=== PATIENT | male | born 1955 | race Caucasian/White ===

== ENCOUNTER 2020-02-03 12:10 | Inpatient (IN) | payer OTHER ==
--- NOTE | 2020-02-03 13:03 | PDOC ---
History of Present Illness - General Chief Complaint: Wound Stated Complaint: WOUND CARE Time Seen by Provider: 02/03/20 12:29 - History of Present Illness Initial Comments: 02/03/20 13:48 64 M hx of dementia, Afib on (duoplate therapy), right 1st toe amputation poorly controlled, DM, schizoprenia, GERD, HF, HLD BIBA from nursing for worsening right toes wound. Patient is a poor historian. He denies chest pain, F/C/N/V, joints pain. Collateral information from nurse at who took care of him was taken. He is currently on 10/12 days of Vanco 1g and zosyn. Denies fever during the course of antibiotics. He was sent here by Dr. Pineda who knew of him. His mental status is confused at base line. PMHX: as in HPI PSHX: right toe amputation Meds: home meds Allergies: none Tob: Etoh: Rec drugs: Code: DNI/DNR PCP: Alfred Hogan ( fdc doctor). ROS: hard to assess/patient is a poor historian/dementia. GENERAL/CONSTITUTIONAL: No fever or chills. No weakness. HEAD, EYES, EARS, NOSE AND THROAT: No change in vision. No ear pain or discharge. No sore throat. CARDIOVASCULAR: No chest pain or shortness of breath RESPIRATORY: No cough, wheezing, or hemoptysis. GASTROINTESTINAL: No nausea, vomiting, diarrhea or constipation. GENITOURINARY: No dysuria, frequency, or change in urination. MUSCULOSKELETAL: No joint or muscle swelling or pain. No neck or back pain. SKIN: No rash NEUROLOGIC: No headache, vertigo, loss of consciousness, or change in strength/sensation. ENDOCRINE: No increased thirst. No abnormal weight change HEMATOLOGIC/LYMPHATIC: No anemia, easy bleeding, or history of blood clots. ALLERGIC/IMMUNOLOGIC: No hives or skin allergy. PE: not febrile, HR 101. GENERAL: AOx2, in no acute distress HEAD: No signs of trauma, normocephalic, atraumatic EYES: PERRLA, EOMI, sclera anicteric, conjunctiva clear ENT: Auricles normal inspection, hearing grossly normal, nares patent, oropharynx clear without exudates. Moist mucosa NECK: Normal ROM, supple, no lymphadenopathy, JVD, or masses LUNGS: No distress, speaks full sentences, clear to auscultation bilaterally HEART: Regular rate and rhythm, normal S1 and S2, no murmurs, rubs or gallops, peripheral pulses normal and equal bilaterally. ABDOMEN: Soft, nontender, normoactive bowel sounds. No guarding, no rebound. No masses EXTREMITIES : Normal range of motion, no edema. right first toe amputated, right second toe is toe, necrotic, NEUROLOGICAL: Cranial nerves II through XII grossly intact. Normal speech, normal gait, no focal sensorimotor deficits SKIN: Warm, Dry, normal turgor, no rashes or lesions noted 02/03/20 14:17 02/03/20 15:26 02/03/20 15:29 Past History - Medical History Allergies/Adverse Reactions: Allergies Allergy/AdvReac Type Severity Reaction Status Date / Time No Known Allergies Allergy Verified 02/03/20 12:20 Home Medications: Ambulatory Orders Amaryl - 4 mg PO DAILY 01/22/20 Aspirin [ASA -] 81 mg PO DAILY 01/22/20 Carvedilol 3.125 mg PO BID 01/22/20 Clopidogrel Bisulfate [Plavix] 75 mg PO DAILY 01/22/20 Digoxin [Lanoxin -] 1 tab PO DAILY 01/22/20 Famotidine 20 mg PO BID 01/22/20 Furosemide [Lasix] 40 mg PO DAILY 01/22/20 Gabapentin 300 mg PO TID 01/22/20 Quetiapine Fumarate [Seroquel -] 50 mg PO HS 01/22/20 Ramipril [Altace] 5 mg PO DAILY 01/22/20 Simvastatin [Zocor -] 40 mg PO HS 01/22/20 Sitagliptin Phosphate [Januvia -] 100 mg PO ONCE 01/22/20 Spironolactone 25 mg PO DAILY 01/22/20 Cardiac Disorders: Yes (a fib) COPD: No CHF: Yes Dementia: Yes Diabetes: Yes GI Disorders: Yes (gerd) HTN: Yes - Surgical History Orthopedic Surgery: Yes (r amp 1st toe) - Psycho-Social/Smoking History Smoking History: Former smoker Have you smoked in the past 12 months: No If you are a former smoker, when did you quit?: 15 yrs ago Information on smoking cessation initiated: No - Substance Abuse Hx (Audit-C & DAST Scrn) How often the patient has a drink containing alcohol: Never Score: In Men: 4 or > Positive; In Women: 3 or > Positive: 0 Screen Result (Pos requires Nsg. Audit-10AR): Negative In the last yr the pt used illegal drug/Rx for NonMed reason: No Score: Yes response is considered Positive: 0 Screen Result (Positive result requires Nsg. DAST-10): Negative *Physical Exam - Vital Signs Last Vital Signs Temp Pulse Resp BP Pulse Ox 98.8 F 101 H 18 150/85 100 02/03/20 12:21 02/03/20 12:21 02/03/20 12:21 02/03/20 12:21 02/03/20 12:21 ED Treatment Course - LABORATORY CBC & Chemistry Diagram: 02/03/20 13:05 02/03/20 13:05 Medical Decision Making - Medical Decision Making 02/03/20 14:45 EKG : vent rate 102 , sinus tachycardia. No previous EKG to compare to . Inferior infarct, age undetermined, possible ant infarct, age undetermined. qTc 427. 02/03/20 15:07 MBMD sent. Decision to admit is in. Talked to Nurse from who took care of Ramos. She reported that Mr. Beasley is Dr. Pineda 's patient. Wound got worse, never develop fever, chill while on Vanco+ zosynz. Patient finished day 04/04. Vanco 1 g + zosyn 3.75 . 02/03/20 15:08 64 M hx of dementia, Afib on (duoplate therapy), right 1st toe amputation poorly controlled, DM, schizoprenia, GERD, HF, HLD BIBA from nursing for worsening right toes wound. Patient is on day 04/04 of vanco+ zosyn, and got sent here from nursing by Dr. Pineda (vascular surgeon). ddx: wet gangrere, osteomeylitist, necrotizing fascitist Plan: Lab+ Xray+EKG Med: antibiotics: vanco 1g + zosyn 3.75 +fluid. Lab show: WBC 10. 6, Cr. 1.5, BUN 22, normal GFR. 02/03/20 15:24 02/03/20 15:31 02/03/20 16:09 Dr. Georgie Grullon and his team came to assess patient. He wants a vanco, digoxin level, lactate level, duplex of extremities, wound culture. They will call Dr. Pineda. 02/03/20 16:10 02/03/20 16:11 Discharge - Discharge Information Problems reviewed: Yes Clinical Impression/Diagnosis: Necrotizing cellulitis Condition: Good - Admission Yes - Follow up/Referral Referrals: Alfred Dos Santos [Primary Care Provider] - - Patient Discharge Instructions - Post Discharge Activity
[2020-02-03 13:16] LABS: BASO % 0.3 % (0-2.0); EOS % 1.6 % (0-4.5); HEMATOCRIT 29.6 % (35.4-49); HEMOGLOBIN 9.6 GM/dL (11.7-16.9); LYMPH % 8.3 % (8-40); MCH 26.4 pg (25.7-33.7); MCHC 32.3 g/dl (32.0-35.9); MEAN CELL VOLUME 81.8 fl (80-96); MEAN PLT VOLUME 7.6 fl (7.5-11.1); MONO % 7.1 % (3.8-10.2); NEUT % 82.7 % (42.8-82.8); PLATELET COUNT 267 K/MM3 (134-434); RBC 3.62 M/mm3 (4.00-5.60); RDW 14.3 % (11.9-15.9); WHITE BLOOD COUNT 10.6 K/mm3 (4.0-10.0)
[2020-02-03 14:00] LABS: ALBUMIN 2.3 g/dl (3.4-5.0); BLOOD UREA NITROGEN 21.2 mg/dL (7-18); CALCIUM 8.9 mg/dL (8.5-10.1); CREATININE 1.5 mg/dL (0.55-1.3); POTASSIUM 4.6 mmol/L (3.5-5.1); TOT PROT 7.2 g/dl (6.4-8.2)
[2020-02-03 14:20] LABS: BILIRUBIN,TOTAL 0.2 mg/dL (0.2-1)
[2020-02-03 14:22] LABS: ERYTHROCYTE SEDIMENTATION RATE 91 mm/hr (0-20)
--- NOTE | 2020-02-03 14:40 | PDOC ---
Documentation entered by Gertrude Ochoa SCRIBE, acting as scribe for Yuan Lopez MD. Yuan Lopez MD: This documentation has been prepared by the Gabriela mohr Sydney, SCRIBE, under my direction and personally reviewed by me in its entirety. I confirm that the documentation accurately reflects all work, treatment, procedures, and medical decision making performed by me. Attending Attestation - Resident Resident Name: Camron Harris - ED Attending Attestation I have performed the following: I have examined & evaluated the patient, The case was reviewed & discussed with the resident, I agree w/resident's findings & plan, Exceptions are as noted - HPI HPI: 02/03/20 13:54 Patient is a 64 year old male with a significant past medical history of HTN, GERD, CHF, Dementia, HLD, Afib who presents [place] the [place] [facility] [place] [facility] with infected right toe wound. HPI is limited secondary to the patient's baseline dementia. Allergies: NKDA PCP: Dr. Dos Santos - Physicial Exam PE: 02/03/20 14:40 See resident exam - Medical Decision Making 02/03/20 14:41 64 M with infected toe ulcer. - Labs, cultures - IV abx Discharge - Discharge Information Problems reviewed: Yes Clinical Impression/Diagnosis: Necrotizing cellulitis Condition: Good - Follow up/Referral - Patient Discharge Instructions - Post Discharge Activity
[2020-02-03] MEDS ORDERED: VANCOMYCIN 1,000 MG in DEXTROSE 5%-WATER - 250 ML IVPB ONE (14:59)
[2020-02-03] MEDS ORDERED: PIPERACILLIN/TAZOB 4.5 GM 4.5 GM in DEXTROSE 5%-WATER 100 ML IVPB ONE (14:59)
[2020-02-03] MEDS ORDERED: PIPERACILLIN/TAZOB 3.375 GM 3.375 GM in DEXTROSE 5%-WATER - 50 ML IVPB ONE (15:01)
[2020-02-03] MEDS ORDERED: PIPERACILLIN/TAZOB 3.375 GM 3.375 GM/50 ML BAG IVPB ONE (15:41)
--- NOTE | 2020-02-03 15:44 | PN ---
Teaching Attending Note Name of Resident: Glory Way ATTENDING PHYSICIAN STATEMENT I saw and evaluated the patient. I reviewed the resident's note and discussed the case with the resident. I agree with the resident's findings and plan as documented. SUBJECTIVE: Transferred from skilled nursing for evaluation of worsening cellulitis Elderly male in no apparent distress OBJECTIVE: Vital Signs Temperature 98.8 F 02/03/20 12:21 Pulse Rate 101 H 02/03/20 12:21 Respiratory Rate 18 02/03/20 12:21 Blood Pressure 150/85 02/03/20 12:21 O2 Sat by Pulse Oximetry (%) 100 02/03/20 12:21 General: Elderly man, comfortable, not in distress HEENT mucous membranes moist, no anemia, no jaundice, PERRLA, no nystagmus Neck: No JVD, supple, no bruit, thyroid palpably normal, normal carotid pulsations. Chest: Nontender, clear to auscultation bilaterally/bilateral wheezing/bilateral basal rales. CVS: S1-S2 regular/irregular no murmur/gallop/rub Abdomen: Nondistended, soft, bowel sounds present. Extremities: Right great toe amputation, second toe bluish discoloration with bleb formation, infected cyst wound amputation with exudative base, inflammation of surrounding skin no edema., No Calf tenderness, pulses feeble CABLE OPERATOR: Alert oriented grossly nonfocal CBC,CMP WBC 10.6 K/mm3 (4.0-10.0) H 02/03/20 13:05 RBC 3.62 M/mm3 (4.00-5.60) L 02/03/20 13:05 Hgb 9.6 GM/dL (11.7-16.9) L 02/03/20 13:05 Hct 29.6 % (35.4-49) L 02/03/20 13:05 MCV 81.8 fl (80-96) 02/03/20 13:05 MCH 26.4 pg (25.7-33.7) 02/03/20 13:05 MCHC 32.3 g/dl (32.0-35.9) 02/03/20 13:05 RDW 14.3 % (11.9-15.9) 02/03/20 13:05 Plt Count 267 K/MM3 (134-434) 02/03/20 13:05 MPV 7.6 fl (7.5-11.1) 02/03/20 13:05 Absolute Neuts (auto) 8.8 K/mm3 (1.5-8.0) H 02/03/20 13:05 Neutrophils % 82.7 % (42.8-82.8) 02/03/20 13:05 Lymphocytes % 8.3 % (8-40) 02/03/20 13:05 Monocytes % 7.1 % (3.8-10.2) 02/03/20 13:05 Eosinophils % 1.6 % (0-4.5) 02/03/20 13:05 Basophils % 0.3 % (0-2.0) 02/03/20 13:05 Nucleated RBC % 0 % (0-0) 02/03/20 13:05 ESR 91 mm/hr (0-20) H 02/03/20 13:05 Sodium 135 mmol/L (136-145) L 02/03/20 13:05 Potassium 4.6 mmol/L (3.5-5.1) 02/03/20 13:05 Chloride 102 mmol/L (98-107) 02/03/20 13:05 Carbon Dioxide 26 mmol/L (21-32) 02/03/20 13:05 Anion Gap 7 MMOL/L (8-16) L 02/03/20 13:05 BUN 21.2 mg/dL (7-18) H 02/03/20 13:05 Creatinine 1.5 mg/dL (0.55-1.3) H 02/03/20 13:05 Est GFR (CKD-EPI)AfAm 57.01 02/03/20 13:05 Est GFR (CKD-EPI)NonAf 49.19 02/03/20 13:05 Random Glucose 357 mg/dL (74-106) H 02/03/20 13:05 Calcium 8.9 mg/dL (8.5-10.1) 02/03/20 13:05 Total Bilirubin 0.2 mg/dL (0.2-1) 02/03/20 13:05 AST 16 U/L (15-37) 02/03/20 13:05 ALT 17 U/L (13-61) 02/03/20 13:05 Alkaline Phosphatase 66 U/L (45-117) 02/03/20 13:05 C-Reactive Protein 20.7 MG/DL (0.00-0.3) H 02/03/20 13:05 Total Protein 7.2 g/dl (6.4-8.2) 02/03/20 13:05 Albumin 2.3 g/dl (3.4-5.0) L 02/03/20 13:05 Right foot x-ray: Imported right great toe with surrounding tissue swelling ASSESSMENT AND PLAN: 64 years old man DNR/DNI, skilled nursing resident [[facility]] multiple medical comorbidities including uncontrolled type 2 diabetes mellitus, hypertension, hypercholesteremia, CKD stage III, paroxysmal atrial fibrillation, peripheral artery disease, congestive heart failure, Right foot osteomyelitis status post right great toe amputation on IV Zosyn and vancomycin day 10 at skilled nursing, via PICC line yesterday PICC line clogged the patient could received IV antibiotic, amputation is scheduled at place with infected wound, wet gangrene of second toe, patient is transferred to [place] ED for further evaluation and management, patient is evaluated with resident in the ED. Impression: Right foot cellulitis/osteomyelitis with sepsis Problem List - Problems (1) Foot osteomyelitis, right Assessment/Plan: Patient has peripheral artery disease with right foot cellulitis/osteomyelitis status post right great ambulation ID on IV antibiotic Zosyn and vancomycin, elevated ESR and CRP, most likely osteomyelitis, wound care, wound culture, wound care consult, ID consult, follow-up lactic acid, follow-up vancomycin level, continue Zosyn, CBC BMP in a.m. Lower extremity Doppler to rule out DVT. Problems reviewed: Yes Code(s): M86.9 - OSTEOMYELITIS, UNSPECIFIED (2) Uncontrolled type 2 diabetes mellitus Assessment/Plan: Hold p.o. medication, start on basal Levemir and correction dose insulin optimize as per Accu-Chek, follow-up hemoglobin A1c, diabetic diet. Problems reviewed: Yes Code(s): E11.65 - TYPE 2 DIABETES MELLITUS WITH HYPERGLYCEMIA (3) Paroxysmal atrial fibrillation Assessment/Plan: History of present atrial fibrillation, current EKG normal sinus rhythm, on digoxin follow dig levels resume home medications. Problems reviewed: Yes Code(s): I48.0 - PAROXYSMAL ATRIAL FIBRILLATION (4) CKD stage 3 due to type 2 diabetes mellitus Assessment/Plan: Due to diabetes nephropathy follow-up BMP Problems reviewed: Yes Code(s): E11.22 - TYPE 2 DIABETES MELLITUS W DIABETIC CHRONIC KIDNEY DISEASE; N18.3 - CHRONIC KIDNEY DISEASE, STAGE 3 (MODERATE) (5) Hypertension Assessment/Plan: Well-controlled continue Problems reviewed: Yes Code(s): I10 - ESSENTIAL (PRIMARY) HYPERTENSION (6) Congestive heart failure Assessment/Plan: Unexpected ejection fraction 40 follow-up BNP, echocardiogram, meantime continue Altace, Aldactone and digoxin Problems reviewed: Yes Code(s): I50.9 - HEART FAILURE, UNSPECIFIED Qualifiers: Heart failure type: unspecified (7) Anemia Assessment/Plan: Follow-up anemia work-up and H&H. Problems reviewed: Yes Code(s): D64.9 - ANEMIA, UNSPECIFIED
--- NOTE | 2020-02-03 16:17 | HP ---
CHIEF COMPLAINT: RLE Wound PCP: HISTORY OF PRESENT ILLNESS: 64 y/o M PMHx DM, Schizophrenia, HTN, HLD, GERD, Dementia, EtOH Use Disorder who had his R great toe amputated ~ 1 month ago, presents with R 2nd digit gangrene. Patient has dementia at baseline and participates minimally in HPI; Nursing staff at [facility] is unable to provide HPI. Case discussed with his brother Chad (HCP) patient has been a resident of [facility] in [place] for 12 years. Patient was quarantined at [facility] about 3-4 months ago after testing positive for COVID. During this time, he experienced great weakness and had some trauma (unknown mechanism of injury) to his Right great toe. Patients brother says this injury then progressed from a wound (brother presumes) to a black discoloration approx 2 months ago for which he was admitted to [facility]. His R great toe was amputated (Dr. Regino Luke) on 12/10 and patient was discharged to [facility]; Brother reports that hospital course was normal without any complications. Since discharge, patient has not followed with any surgeon. Denies any fevers, chills, chest pain, SOB, Nausea, vomiting, diarrhea, constipation, dysuria, Hematuria, headache. 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 Ambulation: Wheelchair/Bed bound Residence: [facility] FAMILY HX: Mother: HTN, HLD, Dementia, CAD Father: Unknown Allergies No Known Allergies Allergy (Verified 02/03/20 12:20) HOME MEDICATIONS: Home Medications Medication Instructions Recorded Amaryl - 4 mg PO DAILY 01/22/20 Aspirin [ASA -] 81 mg PO DAILY 01/22/20 Carvedilol 3.125 mg PO BID 01/22/20 Clopidogrel Bisulfate [Plavix] 75 mg PO DAILY 01/22/20 Digoxin [Lanoxin -] 1 tab PO DAILY 01/22/20 Famotidine 20 mg PO BID 01/22/20 Furosemide [Lasix] 40 mg PO DAILY 01/22/20 Gabapentin 300 mg PO TID 01/22/20 Quetiapine Fumarate [Seroquel -] 50 mg PO HS 01/22/20 Ramipril [Altace] 5 mg PO DAILY 01/22/20 Simvastatin [Zocor -] 40 mg PO HS 01/22/20 Sitagliptin Phosphate [Januvia -] 100 mg PO ONCE 01/22/20 Spironolactone 25 mg PO DAILY 01/22/20 REVIEW OF SYSTEMS As per HPI PHYSICAL EXAMINATION Vital Signs - 24 hr 02/03/20 02/03/20 12:21 15:10 Temperature 98.8 F Pulse Rate 101 H Pulse Rate [ 102 H Left Radial] Respiratory 18 20 Rate Blood Pressure 150/85 Blood Pressure 128/73 [Right Arm] O2 Sat by Pulse 100 97 Oximetry (%) GENERAL: NAD HEAD: NCAT ENT: Moist mucous membranes. NECK: No JVD LUNGS: Diminished breath sounds at the bases, Otherwise CTAB, No wheezes, no crackles HEART: RRR, S1 S2 ABDOMEN: Soft, nontender, not distended, + bowel sounds, no guarding, no rebound EXTREMITIES: Right Great Toe Amputation with open wound and exudative base, No active drainage however does have surrounding erythema, No weeping, No peripheral edema. NEUROLOGICAL: Alert, Follows some commands PSYCHIATRIC: Cooperative SKIN: Warm, dry Laboratory Results - last 24 hr 02/03/20 02/03/20 13:05 13:05 WBC 10.6 H RBC 3.62 L Hgb 9.6 L Hct 29.6 L MCV 81.8 MCH 26.4 MCHC 32.3 RDW 14.3 Plt Count 267 MPV 7.6 Absolute Neuts (auto) 8.8 H Neutrophils % 82.7 Lymphocytes % 8.3 Monocytes % 7.1 Eosinophils % 1.6 Basophils % 0.3 Nucleated RBC % 0 ESR 91 H Sodium 135 L Potassium 4.6 Chloride 102 Carbon Dioxide 26 Anion Gap 7 L BUN 21.2 H Creatinine 1.5 H Est GFR (CKD-EPI)AfAm 57.01 Est GFR (CKD-EPI)NonAf 49.19 Random Glucose 357 H Calcium 8.9 Total Bilirubin 0.2 AST 16 ALT 17 Alkaline Phosphatase 66 C-Reactive Protein 20.7 H Total Protein 7.2 Albumin 2.3 L ASSESSMENT/PLAN: 64 y/o M PMHx DM, Schizophrenia, HTN, HLD, GERD, Dementia, EtOH Use Disorder who had his R great toe amputated ~ 1 month ago, presents with R 2nd digit gangrene. #Sepsis -In the setting of Right 2nd digit Gangrene 2/2 Right foot osteomyelitis s/p R great toe amputation -Worsening Wound and now with 2nd digit gangrene while completing a course of IV Zosyn and vancomycin (Today is day 10) via PICC line -Elevated ESR, CRP -Foot XRay does not reveal a destructive process -Vascular surgery consulted; Case discussed with Dr. Pineda who suggests Santyl for wound and CTA with B/L LE runoff AFTER hydration given Cr, Ideally would like Cr to be 1.2 before contrast -Duplex to r/o DVT -CXR -Follow Wound Cx, blood cx, Vanco level -Trend Lactic -Continue IV ABx (Vanco, Zosyn) -IV Hydration -Consult ID (Dr. Neal) -Daily wound care -Bedrest, Fall precautions -Obtain records From [facility] and [facility] #ROYCE -Likely due to Dehydration in the setting of Diuresis -Check UA, Kidney Renal US -Continue IV Hydration -Monitor Urine output -Calculate FeNa -Avoid Nephrotoxic medication, Hold home dose Diuresis and ACEi #Normocytic/Microcytic Anemia -Etiology to be determined -Check FOBT, Iron studies: FE, TIBC, Ferritin, Transferrin, Folic Acid, Retic count, Vit B12 -Transfuse to keep > 8.0 (?CAD hx) -Will consider Heme Evaluation pending above workup #T2DM -ISS BGMs ACHS #HTN #HLD #?PAF #?CHF -Hold Lasix, Spironolactone, ACEi, PO Diabetic meds, -Resume all other home meds -Check Echo, Dig level #FEN -IV NS @ 75 -Replete Lytes PRN -NPO after midnight for possible intervention #PPx -DVT: SQH Dispo: Admit to med-surg, Meds have been reconciled Code Status: DNR/DNI, Requested MOLST form from Brother, Also requested brother bring HCP paperwork Visit type - Emergency Visit Emergency Visit: Yes ED Registration Date: 02/03/20 Care time: The patient presented to the Emergency Department on the above date and was hospitalized for further evaluation of their emergent condition. - New Patient This patient is new to me today: Yes Date on this admission: 02/04/20 - Critical Care Critical Care patient: No ATTENDING PHYSICIAN STATEMENT I saw and evaluated the patient. I reviewed the resident's note and discussed the case with the resident. I agree with the resident's findings and plan as documented. SUBJECTIVE: OBJECTIVE: ASSESSMENT AND PLAN:
[2020-02-03] MEDS ORDERED: VANCOMYCIN 1 GRAM (PRE-DOCKED) 1,000 MG/250 ML BAG IVPB ONE (16:29)
[2020-02-03] MEDS ORDERED: ACETAMINOPHEN 500 MG TABLET (FP) PO ONE (17:29)
[2020-02-03] MEDS ORDERED: ACETAMINOPHEN 500 MG TABLET (FP) ONE (17:30)
--- NOTE | 2020-02-03 17:50 | EKG ---
Test Reason : Blood Pressure : / mmHG Vent. Rate : 102 BPM Atrial Rate : 102 BPM P-R Int : 164 ms QRS Dur : 090 ms QT Int : 328 ms P-R-T Axes : 031 -07 035 degrees QTc Int : 427 ms SINUS TACHYCARDIA INFERIOR INFARCT , AGE UNDETERMINED ABNORMAL ECG NO PREVIOUS ECGS AVAILABLE Confirmed by MD Jordy, Dony ([id number]) on 02/03/2020 5:50:04 PM Referred By: Confirmed By:Dony Spence MD
[2020-02-03] MEDS ORDERED: DEXTROSE 5%-WATER - 50 ML IVPB ONE (21:26)
[2020-02-03] MEDS ORDERED: PIPERACILLIN/TAZOBACTAM 2.25 GM VIAL IVPB ONE (21:26)
[2020-02-03] MEDS ORDERED: QUEtiapine FUMARATE 25 MG TABLET ONE (21:26)
[2020-02-03 21:49] LABS: URINE APPEARANCE CLEAR; URINE BILIRUBIN NEGATIVE (NEGATIVE); URINE COLOR YELLOW; URINE GLUCOSE (UA) 2+ (NEGATIVE); URINE KETONE NEGATIVE (NEGATIVE); URINE LEUK ESTERASE NEGATIVE (NEGATIVE); URINE NITRITE NEGATIVE (NEGATIVE); URINE PROTEIN TRACE (NEGATIVE); URINE UROBILINOGEN 0.2 mg/dL (0.2-1.0)
[2020-02-03] MEDS: SODIUM CHLORIDE 1,000 ML IV SCH (21:56)
[2020-02-03] MEDS: FAMOTIDINE 20 MG TABLET PO SCH (21:57)
[2020-02-03] MEDS: CARVEDILOL 3.125 MG TABLET (FP) PO SCH (21:57)
[2020-02-03] MEDS: GABAPENTIN 300 MG CAPSULE PO SCH (21:58)
[2020-02-03] MEDS: ATORVASTATIN CA 20 MG TABLET (FP) PO SCH (21:58)
[2020-02-03] MEDS: HEPARIN NA (PORCINE) 5,000 UNITS/ML 1ML VIAL SQ SCH (21:58)
[2020-02-03] MEDS: QUEtiapine FUMARATE 50 MG TABLET PO SCH (21:59)
[2020-02-03] MEDS ORDERED: PATIENT'S OWN MEDICATION (NON-FORMULARY) (Simvastatin 40 MG) PO SCH (22:00)
[2020-02-03] MEDS: PIPERACILLIN/TAZOB 2.25 GM 2.25 GM in DEXTROSE 5%-WATER - 50 ML IVPB SCH (22:00)
[2020-02-03] MEDS: INSULIN SLIDING SCALE (NOVOLOG) 1 VIAL SQ SCH (22:10)
[2020-02-04] MEDS ORDERED: PIPERACILLIN/TAZOBACTAM 2.25 GM VIAL IVPB ONE ×4 (02:19→20:58)
[2020-02-04] MEDS ORDERED: DEXTROSE 5%-WATER - 50 ML IVPB ONE ×4 (02:20→20:58)
[2020-02-04] MEDS: PIPERACILLIN/TAZOB 2.25 GM 2.25 GM in DEXTROSE 5%-WATER - 50 ML IVPB SCH ×4 (03:09→21:22)
[2020-02-04] MEDS ORDERED: PT OWN MED DRAWER 7, Y5N ONE (06:33)
[2020-02-04] MEDS: HEPARIN NA (PORCINE) 5,000 UNITS/ML 1ML VIAL SQ SCH ×3 (06:35→21:23)
[2020-02-04] MEDS: GABAPENTIN 300 MG CAPSULE PO SCH ×3 (06:45→21:23)
[2020-02-04] MEDS: INSULIN SLIDING SCALE (NOVOLOG) 1 VIAL SQ SCH ×4 (06:46→21:26)
[2020-02-04] MEDS ORDERED: GLIMEPIRIDE 4 MG TABLET PO SCH (07:00)
--- NOTE | 2020-02-04 08:10 | PN ---
Progress Note, Physician Chief Complaint: No new complaint, spiked fever on IV antibiotic History of Present Illness: 64 years old man DNR/DNI, fdc resident [[facility]] multiple medical comorbidities including uncontrolled type 2 diabetes mellitus, hypertension, hypercholesteremia, CKD stage III, paroxysmal atrial fibrillation, peripheral artery disease, congestive heart failure, Right foot osteomyelitis status post right great toe amputation on IV Zosyn and vancomycin day 10 at fdc, via PICC line yesterday PICC line clogged the patient could received IV antibiotic, amputation is scheduled at place with infected wound, wet gangrene of second toe, patient is transferred to [facility] ED for further evaluation and management, patient remained afebrile ov ernight. - Current Medication List Current Medications: Active Medications Aspirin (Asa -) 81 mg PO DAILY [facility] Atorvastatin Calcium (Lipitor -) 20 mg PO HS [facility] Last Admin: 02/03/20 21:58 Dose: 20 mg Documented by: Carvedilol (Coreg -) 3.125 mg PO BID [facility] Last Admin: 02/03/20 21:57 Dose: 3.125 mg Documented by: Clopidogrel Bisulfate (Plavix -) 75 mg PO DAILY [facility] Collagenase (Santyl -) 1 applic TP DAILY [facility]; Protocol Digoxin (Lanoxin -) 0.125 mg PO DAILY [facility] Famotidine (Pepcid -) 20 mg PO BID [facility] Last Admin: 02/03/20 21:57 Dose: 20 mg Documented by: Gabapentin (Neurontin -) 300 mg PO TID [facility] Last Admin: 02/04/20 06:45 Dose: 300 mg Documented by: Glimepiride (Amaryl -) 4 mg PO ACBK [facility] Last Admin: 02/04/20 06:52 Dose: 4 mg Documented by: Heparin Sodium (Porcine) (Heparin -) 5,000 unit SQ TID [facility] Last Admin: 02/04/20 06:35 Dose: Not Given Documented by: Sodium Chloride (Normal Saline -) 1,000 mls @ 75 mls/hr IV ASDIR [facility] Last Admin: 02/03/20 21:56 Dose: 75 mls/hr Documented by: Piperacillin Sod/Tazobactam (Sod 2.25 gm/ Dextrose) 50 mls @ 100 mls/hr IVPB Q6H-IV [facility]; Protocol Piperacillin Sod/Tazobactam (Sod 2.25 gm/ Dextrose) 50 mls @ 100 mls/hr IVPB Q6H-IV [facility]; Protocol Stop: 02/04/20 09:29 Last Admin: 02/04/20 03:09 Dose: 100 mls/hr Documented by: Insulin Aspart (Novolog Vial Sliding Scale -) 1 vial SQ ACHS [facility]; Protocol Last Admin: 02/04/20 06:46 Dose: 6 units Documented by: Multivitamins/Minerals/Vitamin C (Tab-A-Vit -) 1 tab PO DAILY [facility] Quetiapine Fumarate (Seroquel -) 50 mg PO HS [facility] Last Admin: 02/03/20 21:59 Dose: 50 mg Documented by: Vancomycin HCl (Vancomycin (Pre-Docked)) 1,000 mg IVPB DAILY@1700 [facility]; Protocol Vancomycin HCl (Vancomycin (Pre-Docked)) 1,000 mg IVPB ONCE ONE; Protocol Stop: 02/04/20 17:01 - Objective Vital Signs: Vital Signs Temperature 99.0 F 02/04/20 06:00 Pulse Rate 98 H 02/04/20 06:00 Respiratory Rate 18 02/04/20 06:00 Blood Pressure 151/96 02/04/20 06:00 O2 Sat by Pulse Oximetry (%) 96 02/04/20 06:00 General: Elderly man, comfortable, not in distress HEENT mucous membranes moist, no anemia, no jaundice, PERRLA, no nystagmus Neck: No JVD, supple, no bruit, thyroid palpably normal, normal carotid pulsations. Chest: Nontender,/bilateral wheezing/bilateral basal rales. CVS: S1-S2 regular no murmur/gallop/rub Abdomen: Nondistended, soft, bowel sounds present. Extremities: Right great toe amputation, second toe bluish discoloration with bleb formation, infected cyst wound amputation with exudative base, inflammation of surrounding skin no edema., No Calf tenderness, pulses feeble IT APPLICATIONS ANALYST: Alert oriented grossly nonfocal Labs: CBC, BMP 02/03/20 13:05 02/03/20 13:05 Problem List - Problems (1) Foot osteomyelitis, right Assessment/Plan: Patient has peripheral artery disease with right foot cellulitis/osteomyelitis status post right great ambulation ID on IV antibiotic Zosyn and vancomycin, elevated ESR and CRP, most likely osteomyelitis, wound care, wound culture, wound care consult, ID consult, follow-up lactic acid, follow-up vancomycin level, continue Zosyn, CBC BMP in a.m. . Code(s): M86.9 - OSTEOMYELITIS, UNSPECIFIED (2) Uncontrolled type 2 diabetes mellitus Assessment/Plan: Hold p.o. medication except Januvia, start on basal Levemir 14 at bedtime, and correction dose insulin optimize as per Accu-Chek, follow-up hemoglobin A1c, diabetic diet. Code(s): E11.65 - TYPE 2 DIABETES MELLITUS WITH HYPERGLYCEMIA (3) Paroxysmal atrial fibrillation Assessment/Plan: History of present atrial fibrillation, current EKG normal sinus rhythm, on digoxin follow dig levels resume home medications. Code(s): I48.0 - PAROXYSMAL ATRIAL FIBRILLATION (4) CKD stage 3 due to type 2 diabetes mellitus Assessment/Plan: Due to diabetes nephropathy follow-up BMP Code(s): E11.22 - TYPE 2 DIABETES MELLITUS W DIABETIC CHRONIC KIDNEY DISEASE; N18.3 - CHRONIC KIDNEY DISEASE, STAGE 3 (MODERATE) (5) Hypertension Assessment/Plan: Well-controlled continue Code(s): I10 - ESSENTIAL (PRIMARY) HYPERTENSION (6) Congestive heart failure Assessment/Plan: Unexpected ejection fraction 40 follow-up BNP, echocardiogram, meantime continue Altace, Aldactone and digoxin Code(s): I50.9 - HEART FAILURE, UNSPECIFIED Qualifiers: Heart failure type: unspecified (7) Anemia Assessment/Plan: Follow-up anemia work-up and H&H. Code(s): D64.9 - ANEMIA, UNSPECIFIED (8) PIC line (peripherally inserted central catheter) removal Assessment/Plan: Center is nonfunctioning PICC line will be removed Problems reviewed: Yes Code(s): Z45.2 - ENCOUNTER FOR ADJUSTMENT AND MANAGEMENT OF VAD
[2020-02-04 08:45] LABS: BASO % 0.3 % (0-2.0); EOS % 2.3 % (0-4.5); HEMATOCRIT 27.5 % (35.4-49); HEMOGLOBIN 9.1 GM/dL (11.7-16.9); LYMPH % 10.5 % (8-40); MCHC 33.1 g/dl (32.0-35.9); MEAN CELL VOLUME 81.5 fl (80-96); MONO % 6.8 % (3.8-10.2); NEUT % 80.1 % (42.8-82.8); PLATELET COUNT 264 K/MM3 (134-434); RBC 3.38 M/mm3 (4.00-5.60); RDW 14.1 % (11.9-15.9); WHITE BLOOD COUNT 8.9 K/mm3 (4.0-10.0)
--- NOTE | 2020-02-04 09:18 | CONSULT ---
- Consultation REQUESTING PROVIDER: CONSULT REQUEST: We have been asked to surgically evaluate this patient for Right foot wound. PCP:Georgie Grullon MD HISTORY OF PRESENT ILLNESS: The patient is a 64 yo male who presented to the ER for evaluation of his right foot wound. His history is obtained from the chart since the pt has dementia and is able to give limited information. The patient was seen by Dr. Pineda in his office on January 21 as a new patient, he had a right toe amp on 12/[address] Luke and has since been in rehab. His history of his wound seems to have developed after having some weakness secondary to +COVID 30to 4 months ago. He is a previous smoker and is wheel chair/bed bound. He was noted to have a fever upon admission to the hospital to 101.9 with no elevation of his WBC. While i the nursing facility, he has been receiving IV abx via a left PICC line. PMHx: CVOID +(3-4 months ago), HTN, HLD, GERD, dementia, h/o ETOH abuse, a fib PSHx: Right great toe amp, Right vascular surgery? healed groin incision. Home Medications Medication Instructions Recorded Amaryl - 4 mg PO DAILY 01/22/20 Aspirin [ASA -] 81 mg PO DAILY 01/22/20 Carvedilol 3.125 mg PO BID 01/22/20 Clopidogrel Bisulfate [Plavix] 75 mg PO DAILY 01/22/20 Digoxin [Lanoxin -] 1 tab PO DAILY 01/22/20 Famotidine 20 mg PO BID 01/22/20 Furosemide [Lasix] 40 mg PO DAILY 01/22/20 Gabapentin 300 mg PO TID 01/22/20 Quetiapine Fumarate [Seroquel -] 50 mg PO HS 01/22/20 Ramipril [Altace] 5 mg PO DAILY 01/22/20 Simvastatin [Zocor -] 40 mg PO HS 01/22/20 Sitagliptin Phosphate [Januvia -] 100 mg PO DAILY 01/22/20 Spironolactone 25 mg PO DAILY 01/22/20 Acetaminophen [Tylenol -] 100 mg PO Q8H MDD 3000 02/03/20 Collagenase Clostridium Hist. 1 applic TP DAILY 02/03/20 [Santyl] Insulin Detemir [Levemir Flextouch] 60 unit SQ HS 02/03/20 Multivitamin 1 each PO DAILY 02/03/20 Oxycodone HCl 5 mg PO DAILY 02/03/20 Piperacillin/Tazob 3.375 gm [Zosyn 3.375 gm IVPB TID 02/03/20 3.375GM Ivpb (Pre-Docked)] Vancomycin 1 Gram (Pre-Docked) 1 gm IVPB BID 02/03/20 [Vancomycin (Pre-Docked)] Allergies Allergy/AdvReac Type Severity Reaction Status Date / Time No Known Allergies Allergy Verified 02/03/20 12:20 REVIEW OF SYSTEMS: Unable to obtain CONSTITUTIONAL: Present: fever PHYSICAL EXAM: GENERAL: Awake, alert, and responds to commands. ABDOMEN: Soft, nontender, not distended. UPPER EXTREMITIES: 2+ pulses, warm, well-perfused. LOWER EXTREMITIES: RLE: +2 DP/PT with doppler. Right great toe amp site with wound dehiscence/sutures loose within tissue. Dry/dessicated tissue with no drainage noted or surrounding erythema. Wound probed with Qtip in wd proximally and it tracks but no pus found. 2nd toe necrotic/macerated. All web spaces are macerated. Mild edema to foot/ankle. Right groind with healed vertical groin incision approx 8 cm long LLE: no ulcers/skin breakdown. +2 DP/PT pulse with doppler. Vital Signs Temperature 99.0 F 02/04/20 06:00 Pulse Rate 98 H 02/04/20 06:00 Respiratory Rate 18 02/04/20 06:00 Blood Pressure 151/96 02/04/20 06:00 O2 Sat by Pulse Oximetry (%) 96 02/04/20 06:00 Lab Results WBC 8.9 K/mm3 (4.0-10.0) 02/04/20 07:50 RBC 3.38 M/mm3 (4.00-5.60) L 02/04/20 07:50 Hgb 9.1 GM/dL (11.7-16.9) L 02/04/20 07:50 Hct 27.5 % (35.4-49) L 02/04/20 07:50 MCV 81.5 fl (80-96) 02/04/20 07:50 MCHC 33.1 g/dl (32.0-35.9) 02/04/20 07:50 RDW 14.1 % (11.9-15.9) 02/04/20 07:50 Plt Count 264 K/MM3 (134-434) 02/04/20 07:50 Sodium 135 mmol/L (136-145) L 02/03/20 13:05 Potassium 4.6 mmol/L (3.5-5.1) 02/03/20 13:05 Chloride 102 mmol/L (98-107) 02/03/20 13:05 Carbon Dioxide 26 mmol/L (21-32) 02/03/20 13:05 Anion Gap 7 MMOL/L (8-16) L 02/03/20 13:05 BUN 21.2 mg/dL (7-18) H 02/03/20 13:05 Creatinine 1.5 mg/dL (0.55-1.3) H 02/03/20 13:05 Random Glucose 357 mg/dL (74-106) H 02/03/20 13:05 Calcium 8.9 mg/dL (8.5-10.1) 02/03/20 13:05 Laboratory Tests 02/03/20 02/03/20 02/03/20 16:10 17:30 21:13 Random Glucose Lactic Acid 0.9 Urine Appearance Clear Urine pH 6.0 Ur Specific [place] 1.012 Urine Protein Trace Urine Glucose (UA) 2+ H Urine Ketones Negative Urine Blood Negative Urine Nitrite Negative Urine Bilirubin Negative Urine Urobilinogen 0.2 Ur Leukocyte Esterase Negative COVID-19 ([facility]) Not detected 02/04/20 06:00 Random Glucose 248 H Lactic Acid Urine Appearance Urine pH Ur Specific [place] Urine Protein Urine Glucose (UA) Urine Ketones Urine Blood Urine Nitrite Urine Bilirubin Urine Urobilinogen Ur Leukocyte Esterase COVID-19 ([facility]) Right foot xray: SQ air near remnant of 1st toe metatarsal. SQ air between 2/3 metatarsals CXR: bi basilar atelectasis changes/no infiltrates Vacular Duples: no evidence of DVT to b/l LE Renal: both kidneys without evidnece of hydronephrosis Problem List - Problems (1) Diabetic foot infection Assessment/Plan: Right diabetic foot infection with a history of smoking and vascular disease. He is s/p Right toe amp which is non-healing. Fevers most likely secondary to foot infection since CXR without infiltrates except for altetasis. UA negative. His fevers have improved. Recommend to continue IV abx. f/u COVID test and bld/wd cultures. D/w Dr. Pineda and he will need to have a foot debridement and further evaluation of his RLE blood supply. Since his BUN/CRET are elevated arterial duplex studies were ordered for his b/l LE. It would be optimal to obtain a RLE CTA if his BUN/CRET improve and allow for this study. Otherwise possible angio to investigate arterial blood flow to the LE. Local wound care Problems reviewed: Yes Code(s): E11.628 - TYPE 2 DIABETES MELLITUS WITH OTHER SKIN COMPLICATIONS; L08.9 - LOCAL INFECTION OF THE SKIN AND SUBCUTANEOUS TISSUE, UNSP
[2020-02-04 09:22] LABS: POTASSIUM 3.8 mmol/L (3.5-5.1)
[2020-02-04] MEDS: ASPIRIN 81 MG CHEWABLE TABLETS PO SCH (09:36)
[2020-02-04] MEDS: CLOPIDOGREL BISULFATE 75 MG TABLET (FP) PO SCH (09:36)
[2020-02-04] MEDS: CARVEDILOL 3.125 MG TABLET (FP) PO SCH ×2 (09:36→21:23)
[2020-02-04] MEDS: DIGOXIN 0.125 MG TABLET (FP) PO SCH (09:36)
[2020-02-04] MEDS: FAMOTIDINE 20 MG TABLET PO SCH ×2 (09:36→21:23)
[2020-02-04] MEDS: MULTIVITAMINS (DAILY MVI) TABLET (FP) PO SCH (09:36)
[2020-02-04 09:44] LABS: ALBUMIN 2.1 g/dl (3.4-5.0); BILIRUBIN,TOTAL 0.2 mg/dL (0.2-1); BLOOD UREA NITROGEN 20.1 mg/dL (7-18); CALCIUM 8.5 mg/dL (8.5-10.1); CREATININE 1.4 mg/dL (0.55-1.3); MAGNESIUM 1.7 mg/dL (1.8-2.4); PHOSPHOROUS 3.9 mg/dL (2.5-4.9); TOT PROT 6.8 g/dl (6.4-8.2)
[2020-02-04] MEDS ORDERED: AMARYL PO SCH (10:00)
[2020-02-04] MEDS: sitaGLIPtin PHOSPHATE 50 MG TABLET PO SCH (12:11)
[2020-02-04] MEDS ORDERED: INSULIN (NOVOLOG) ASPART 100 UNITS/ML 10ML VIAL ONE (12:32)
[2020-02-04 12:43] LABS: RETICULOCYTES 0.87 % (0.5-1.5)
[2020-02-04] MEDS: COLLAGENASE CLOSTRIDIUM HIST. 30 GRAMS TUBE TP SCH (14:26)
--- NOTE | 2020-02-04 16:59 | CON.ID ---
Consult Referred by:: infected wound Reason for Consultation:: fever, infected wound - History of Present Illness Chief Complaint: admitted for nonhealing foot wound History of Present Illness: 64 yo man with diabetes and dementia, originally admitted to [place] from [facility] for gangrenous right big toe, he had right femoral endarterectomy performed and a partial first ray amputation- he was treated with vanco zosyn and then po cipro-dates of this admission are not known he was anemic and was transfused noted in [place] to have nonhealing ulcer and iv vancomycin and zosyn resumed fever to 101.9 here - History Source History Provided By: Medical Record Limitations to Obtaining History: Dementia - Past Medical History [employer]: Yes: Dementia Cardio/Vascular: Yes: CAD, HTN, Hyperlipdemia Gastrointestinal: Yes: GERD Psych: Yes: Schizophrenia - Past Surgical History Additional Surgical History: right femoral endarterectomy. right first partial ray amputation - Alcohol/Substance Use Hx Alcohol Use: Yes - Smoking History Smoking history: Former smoker Have you smoked in the past 12 months: No If you are a former smoker, when did you quit?: 15 yrs ago - Social History Usual Living Arrangement: [facility] ADL: Support Services Place of : Other ([place]) History of Recent Travel: No Home Medications - Allergies Allergies/Adverse Reactions: Allergies Allergy/AdvReac Type Severity Reaction Status Date / Time No Known Allergies Allergy Verified 02/03/20 12:20 - Home Medications Home Medications: Ambulatory Orders Amaryl - 4 mg PO DAILY 01/22/20 Aspirin [ASA -] 81 mg PO DAILY 01/22/20 Carvedilol 3.125 mg PO BID 01/22/20 Clopidogrel Bisulfate [Plavix] 75 mg PO DAILY 01/22/20 Digoxin [Lanoxin -] 1 tab PO DAILY 01/22/20 Famotidine 20 mg PO BID 01/22/20 Furosemide [Lasix] 40 mg PO DAILY 01/22/20 Gabapentin 300 mg PO TID 01/22/20 Quetiapine Fumarate [Seroquel -] 50 mg PO HS 01/22/20 Ramipril [Altace] 5 mg PO DAILY 01/22/20 Simvastatin [Zocor -] 40 mg PO HS 01/22/20 Sitagliptin Phosphate [Januvia -] 100 mg PO DAILY 01/22/20 Spironolactone 25 mg PO DAILY 01/22/20 Acetaminophen [Tylenol -] 100 mg PO Q8H MDD 3000 02/03/20 Collagenase Clostridium Hist. [Santyl] 1 applic TP DAILY 02/03/20 Insulin Detemir [Levemir Flextouch] 60 unit SQ HS 02/03/20 Multivitamin 1 each PO DAILY 02/03/20 Oxycodone HCl 5 mg PO DAILY 02/03/20 Piperacillin/Tazob 3.375 gm [Zosyn 3.375GM Ivpb (Pre-Docked)] 3.375 gm IVPB TID 02/03/20 Vancomycin 1 Gram (Pre-Docked) [Vancomycin (Pre-Docked)] 1 gm IVPB BID 02/03/20 Family Medical History Family History: Unable to Obtain Review of Systems Unable to obtain ROS, reason: unable to obtain Physical Exam Vital Signs: Vital Signs Temperature 98.1 F 02/04/20 14:00 Pulse Rate 99 H 02/04/20 14:00 Respiratory Rate 18 02/04/20 14:00 Blood Pressure 158/87 02/04/20 14:00 O2 Sat by Pulse Oximetry (%) 99 02/04/20 10:00 Constitutional: Yes: Thin Eyes: Yes: Conjunctiva Clear HENT: Yes: Atraumatic, Normocephalic Neck: Yes: Supple Cardiovascular: Yes: Regular Rate and Rhythm Respiratory: Yes: Regular Gastrointestinal: Yes: Normal Bowel Sounds, Soft, Other (well healed right femoral incision) Extremities: Yes: Other (right foot with open wound at site of first toe, second toe is necrotic) Edema: No Psychiatric: Yes: Alert Labs: CBC, BMP 02/04/20 07:50 02/04/20 06:00 Microbiology 02/03/20 16:20 Toe - Right Hallux Gram Stain - Final 02/03/20 13:05 Blood - Peripheral Venous Blood Culture - Preliminary NO GROWTH OBTAINED AFTER 24 HOURS, INCUBATION TO CO NTINUE FOR 4 DAYS. 02/03/20 13:05 Blood - Peripheral Venous Blood Culture - Preliminary NO GROWTH OBTAINED AFTER 24 HOURS, INCUBATION TO CON TINUE FOR 4 DAYS. Laboratory Tests 02/03/20 02/03/20 13:05 13:05 ESR 91 H C-Reactive Protein 20.7 H Imaging - Results Chest X-ray: Report Reviewed, Image Reviewed Ultrasound: Report Reviewed (duplex no dvt renal sono no obstruction) Problem List - Problems (1) Fever Code(s): R50.9 - FEVER, UNSPECIFIED (2) Diabetic foot infection Code(s): E11.628 - TYPE 2 DIABETES MELLITUS WITH OTHER SKIN COMPLICATIONS; L08.9 - LOCAL INFECTION OF THE SKIN AND SUBCUTANEOUS TISSUE, UNSP (3) PVD (peripheral vascular disease) Code(s): I73.9 - PERIPHERAL VASCULAR DISEASE, UNSPECIFIED (4) CKD (chronic kidney disease) Code(s): N18.9 - CHRONIC KIDNEY DISEASE, UNSPECIFIED (5) Anemia Code(s): D64.9 - ANEMIA, UNSPECIFIED Assessment/Plan continue vanco/zosyn suspect worsening vascular disease leading to nonhealing and gangrene despite recect vascular procedure probable underlying osteo too awaiting vascular evaluation- regarding further surgical options
[2020-02-04] MEDS ORDERED: VANCOMYCIN 1 GM in D5W (PRE-DOCKED) 1,000 MG/250 ML IVPB ONE (17:00)
[2020-02-04] MEDS: SODIUM CHLORIDE 1,000 ML IV SCH (17:33)
--- NOTE | 2020-02-04 17:44 | ECHO ---
Name: OZZIE UMANZOR Exam:Adult Echocardiogram Study Date: 02/04/2020 03:32 PM Age: 64 yrs Reason For Study: Evaluate LV Function Height: 66 in Weight: 147 lb BSA: 1.8 m2 MMode/2D Measurements & Calculations IVSd: 1.1 cm Ao root diam: 3.4 cm LVIDd: 4.2 cm LA dimension: 3.2 cm LVIDs: 3.0 cm ACS: 1.9 cm LVPWd: 1.0 cm EDV(Teich): 78.4 ml LVOT diam: 2.0 cm ESV(Teich): 34.9 ml LAV (MOD-bp): 35.0 ml TAPSE: 1.8 cm RV S Raheel: 11.3 cm/sec Doppler Measurements & Calculations MV E max raheel: 98.2 cm/sec Ao V2 max: 138.5 cm/sec MV A max raheel: 131.6 cm/sec Ao max P.7 mmHg MV E/A: 0.75 Ao V2 mean: 93.8 cm/sec MV dec time: 0.12 sec Ao mean P.1 mmHg Ao V2 VTI: 22.8 cm FLORINDA(I,D): 2.2 cm2 FLORINDA(V,D): 2.1 cm2 LV V1 max P.4 mmHg SV(LVOT): 50.5 ml LV V1 mean P.7 mmHg LV V1 max: 92.7 cm/sec LV V1 mean: 61.5 cm/sec LV V1 VTI: 15.8 cm PA V2 max: 59.7 cm/sec Med Peak E' Raheel: 5.9 cm/sec PA max P.4 mmHg Med E/e': 16.5 PA acc slope: 560.7 cm/sec2 Lat Peak E' Raheel: 6.0 cm/sec PA acc time: 0.11 sec Lat E/e': 16.2 PA pr(Accel): 31.5 mmHg Tech Comments TDS. Patient very thin. Procedure A complete two-dimensional transthoracic echocardiogram was performed (2D, M-mode, Doppler and color flow Doppler). Left Ventricle The left ventricular size, thickness and function are normal. Ejection Fraction = 60-65%. The left ve ntricular wall motion is normal. Right Ventricle The right ventricle is normal in size and function. Atria Normal left and right atrial size and function. Mitral Valve There is no mitral regurgitation noted. Tricuspid Valve There is trace tricuspid regurgitation. There was insufficient TR detected to calculate RV systolic p ressure. Aortic Valve No hemodynamically significant valvular aortic stenosis. No aortic regurgitation is present. Pulmonic Valve There is no pulmonic valvular regurgitation. Great Vessels The aortic root is normal size. Pericardium/Pleura There is no pericardial effusion. Interpretation Summary The left ventricular size, thickness and function are normal The right ventricle is normal in size and function. There is trace tricuspid regurgitation. MD Vu Dueñas 02/04/2020 05:43 PM
[2020-02-04] MEDS ORDERED: ACETAMINOPHEN 1000 MG/100 ML VIAL (NON FORMULARY) IVPB ONE (20:25)
[2020-02-04] MEDS ORDERED: QUEtiapine FUMARATE 25 MG TABLET ONE (20:58)
[2020-02-04] MEDS: ATORVASTATIN CA 20 MG TABLET (FP) PO SCH (21:23)
[2020-02-04] MEDS: QUEtiapine FUMARATE 50 MG TABLET PO SCH (21:24)
[2020-02-04] MEDS ORDERED: INSULIN DETEMIR 60 UNIT SQ SCH (22:00)
[2020-02-04] MEDS ORDERED: INSULIN (LEVEMIR) 100 UNITS/ML UNITS SQ SCH (22:00)
[2020-02-05] MEDS ORDERED: PIPERACILLIN/TAZOBACTAM 2.25 GM VIAL IVPB ONE ×4 (03:25→21:01)
[2020-02-05] MEDS ORDERED: DEXTROSE 5%-WATER - 50 ML IVPB ONE ×4 (03:25→21:01)
[2020-02-05] MEDS: PIPERACILLIN/TAZOB 2.25 GM 2.25 GM in DEXTROSE 5%-WATER - 50 ML IVPB SCH ×4 (03:39→21:28)
[2020-02-05] MEDS ORDERED: ACETAMINOPHEN 1000 MG/100 ML VIAL (NON FORMULARY) IVPB ONE (06:30)
[2020-02-05] MEDS ORDERED: INSULIN (NOVOLOG) ASPART 100 UNITS/ML 10ML VIAL ONE ×2 (06:36→21:00)
[2020-02-05] MEDS: INSULIN SLIDING SCALE (NOVOLOG) 1 VIAL SQ SCH ×4 (06:37→21:29)
[2020-02-05] MEDS: HEPARIN NA (PORCINE) 5,000 UNITS/ML 1ML VIAL SQ SCH ×3 (06:38→21:29)
[2020-02-05] MEDS: GABAPENTIN 300 MG CAPSULE PO SCH ×3 (06:39→21:29)
--- NOTE | 2020-02-05 07:34 | PN ---
Progress Note, Physician Chief Complaint: No new complaint, low-grade fever on IV antibiotic History of Present Illness: 64 years old man DNR/DNI, [facility] resident [[facility]] multiple medical comorbidities including uncontrolled type 2 diabetes mellitus, hypertension, hypercholesteremia, CKD stage III, paroxysmal atrial fibrillation, peripheral artery disease, congestive heart failure, Right foot osteomyelitis status post right great toe amputation on IV Zosyn and vancomycin day 10 at [facility], via PICC line yesterday PICC line clogged the patient could received IV antibiotic, amputation is scheduled at place with infected wound, wet gangrene of second toe, patient is transferred to [place] ED for further evaluation and management, patient has low-grade fever looks lethargic - Current Medication List Current Medications: Active Medications Aspirin (Asa -) 81 mg PO DAILY [facility] Last Admin: 02/04/20 09:36 Dose: 81 mg Documented by: Atorvastatin Calcium (Lipitor -) 20 mg PO HS [facility] Last Admin: 02/04/20 21:23 Dose: 20 mg Documented by: Carvedilol (Coreg -) 3.125 mg PO BID [facility] Last Admin: 02/04/20 21:23 Dose: 3.125 mg Documented by: Clopidogrel Bisulfate (Plavix -) 75 mg PO DAILY [facility] Last Admin: 02/04/20 09:36 Dose: 75 mg Documented by: Collagenase (Santyl -) 1 applic TP DAILY [facility]; Protocol Last Admin: 02/04/20 14:26 Dose: Not Given Documented by: Digoxin (Lanoxin -) 0.125 mg PO DAILY [facility] Last Admin: 02/04/20 09:36 Dose: 0.125 mg Documented by: Famotidine (Pepcid -) 20 mg PO BID [facility] Last Admin: 02/04/20 21:23 Dose: 20 mg Documented by: Gabapentin (Neurontin -) 300 mg PO TID [facility] Last Admin: 02/05/20 06:39 Dose: 300 mg Documented by: Heparin Sodium (Porcine) (Heparin -) 5,000 unit SQ TID [facility] Last Admin: 02/05/20 06:38 Dose: 5,000 unit Documented by: Sodium Chloride (Normal Saline -) 1,000 mls @ 75 mls/hr IV ASDIR [facility] Last Admin: 02/04/20 17:33 Dose: 75 mls/hr Documented by: Piperacillin Sod/Tazobactam (Sod 2.25 gm/ Dextrose) 50 mls @ 100 mls/hr IVPB Q6 H-IV [facility]; Protocol Last Admin: 02/05/20 03:39 Dose: 100 mls/hr Documented by: Insulin Aspart (Novolog Vial Sliding Scale -) 1 vial SQ [facility]; Protocol Last Admin: 02/05/20 06:37 Dose: 4 units Documented by: Insulin Detemir (Levemir Vial) 40 units SQ [facility] Last Admin: 02/04/20 21:24 Dose: 40 units Documented by: Multivitamins/Minerals/Vitamin C (Tab-A-Vit -) 1 tab PO DAILY [facility] Last Admin: 02/04/20 09:36 Dose: 1 tab Documented by: Quetiapine Fumarate (Seroquel -) 50 mg PO HS [facility] Last Admin: 02/04/20 21:24 Dose: 50 mg Documented by: Sitagliptin Phosphate (Januvia -) 100 mg PO DAILY [facility] Last Admin: 02/04/20 12:11 Dose: 100 mg Documented by: Vancomycin HCl (Vancomycin (Pre-Docked)) 1,000 mg IVPB DAILY@1700 [facility]; Protocol - Objective Vital Signs: Vital Signs Temperature 100.9 F H 02/05/20 06:00 Pulse Rate 96 H 02/05/20 06:00 Respiratory Rate 20 02/05/20 06:00 Blood Pressure 155/87 02/05/20 06:00 O2 Sat by Pulse Oximetry (%) 98 02/05/20 06:00 General: Elderly man, lethargic c not in distress HEENT mucous membranes moist, no anemia, no jaundice, PERRLA, no nystagmus Neck: No JVD, supple, no bruit, thyroid palpably normal, normal carotid pulsations. Chest: Nontender,bilateral basal rales. CVS: S1-S2 regular no murmur/gallop/rub Abdomen: Nondistended, soft, bowel sounds present. Extremities: Right great toe amputation, second toe bluish discoloration with bleb formation, infected cyst wound amputation with exudative base, inflammation of surrounding skin no edema., No Calf tenderness, pulses feeble ICT MANAGERS: Alert oriented grossly nonfocal Labs: CBC, BMP 02/05/20 07:50 02/05/20 07:50 Microbiology 02/03/20 16:20 Toe - Right Hallux Gram Stain - Final 02/03/20 16:20 Toe - Right Hallux Wound Culture - Preliminary Lactose Fermenting Neg Bacilli Non Lactose Fermenting Gnb 02/03/20 13:05 Blood - Peripheral Venous Blood Culture - Preliminary NO GROWTH OBTAINED AFTER 24 HOURS, INCUBATION TO CONTINUE FOR 4 DAYS. 02/03/20 13:05 Blood - Peripheral Venous Blood Culture - Preliminary NO GROWTH OBTAINED AFTER 24 HOURS, INCUBATION TO CONTINUE FOR 4 DAYS. Problem List - Problems (1) Foot osteomyelitis, right Assessment/Plan: Patient has peripheral artery disease with right foot cellulitis/osteomyelitis status post right great amputation on IV antibiotic Zosyn and vancomycin, elevated ESR and CRP, most likely osteomyelitis, on Zosyn and vancomycin will follow-up Vanco trough, follow-up ID and vascular recommendations, patient is scheduled for lower extremity angiogram. Code(s): M86.9 - OSTEOMYELITIS, UNSPECIFIED (2) Uncontrolled type 2 diabetes mellitus Assessment/Plan: Hold p.o. medication except Januvia, start on basal Levemir 40 at bedtime, and correction dose insulin optimize as per Accu-Chek, patient is n.p.o. random plasma glucose 139 will start on D5 83 cc/h fingersticks q. as 4 hourly observe closely for hypoglycemia during perioperative. Code(s): E11.65 - TYPE 2 DIABETES MELLITUS WITH HYPERGLYCEMIA (3) Paroxysmal atrial fibrillation Assessment/Plan: History of present atrial fibrillation, current EKG normal sinus rhythm, on dig oxin follow dig levels resume home medications. Code(s): I48.0 - PAROXYSMAL ATRIAL FIBRILLATION (4) CKD stage 3 due to type 2 diabetes mellitus Assessment/Plan: Due to diabetes nephropathy follow-up BMP are stable today's creatinine is 1.4 Code(s): E11.22 - TYPE 2 DIABETES MELLITUS W DIABETIC CHRONIC KIDNEY DISEASE; N18.3 - CHRONIC KIDNEY DISEASE, STAGE 3 (MODERATE) (5) Hypertension Assessment/Plan: Well-controlled continue Code(s): I10 - ESSENTIAL (PRIMARY) HYPERTENSION (6) Congestive heart failure Assessment/Plan: Patient has normal ejection fraction, continue Altace, Aldactone and digoxin, dig level is 1.32 Code(s): I50.9 - HEART FAILURE, UNSPECIFIED Qualifiers: Heart failure type: unspecified (7) Anemia Assessment/Plan: Follow-up anemia work-up and H&H. Hemoglobin is stable Code(s): D64.9 - ANEMIA, UNSPECIFIED (8) PIC line (peripherally inserted central catheter) removal Assessment/Plan: nonfunctioning PICC line will be removed Code(s): Z45.2 - ENCOUNTER FOR ADJUSTMENT AND MANAGEMENT OF VAD
[2020-02-05 09:43] LABS: BASO % 0.4 % (0-2.0); EOS % 2.6 % (0-4.5); HEMATOCRIT 26.5 % (35.4-49); HEMOGLOBIN 8.8 GM/dL (11.7-16.9); LYMPH % 14.8 % (8-40); MCH 26.8 pg (25.7-33.7); MCHC 33.1 g/dl (32.0-35.9); MEAN CELL VOLUME 80.9 fl (80-96); MEAN PLT VOLUME 7.8 fl (7.5-11.1); NEUT % 73.2 % (42.8-82.8); PLATELET COUNT 280 K/MM3 (134-434); RBC 3.27 M/mm3 (4.00-5.60); RDW 14.1 % (11.9-15.9); WHITE BLOOD COUNT 7.3 K/mm3 (4.0-10.0)
[2020-02-05 10:06] LABS: BLOOD UREA NITROGEN 18.1 mg/dL (7-18); CALCIUM 8.7 mg/dL (8.5-10.1); CREATININE 1.4 mg/dL (0.55-1.3); POTASSIUM 3.5 mmol/L (3.5-5.1)
[2020-02-05] MEDS ORDERED: D5-NS + 20 MEQ KCL - 20 MEQ/1,000 ML INFUS.BAG IV SCH (10:30)
[2020-02-05] MEDS: sitaGLIPtin PHOSPHATE 50 MG TABLET PO SCH (11:32)
[2020-02-05] MEDS: ASPIRIN 81 MG CHEWABLE TABLETS PO SCH (11:32)
[2020-02-05] MEDS: CLOPIDOGREL BISULFATE 75 MG TABLET (FP) PO SCH (11:32)
[2020-02-05] MEDS: COLLAGENASE CLOSTRIDIUM HIST. 30 GRAMS TUBE TP SCH (11:33)
[2020-02-05] MEDS: DIGOXIN 0.125 MG TABLET (FP) PO SCH (11:40)
[2020-02-05] MEDS: CARVEDILOL 3.125 MG TABLET (FP) PO SCH ×2 (11:40→21:28)
[2020-02-05] MEDS: MULTIVITAMINS (DAILY MVI) TABLET (FP) PO SCH (11:40)
[2020-02-05] MEDS: FAMOTIDINE 20 MG TABLET PO SCH ×2 (11:40→21:28)
--- NOTE | 2020-02-05 14:12 | PN ---
Progress Note (short form) - Note Progress Note: resting comfortably no complaints Vital Signs Period Temp Pulse Resp BP Sys/Leahy Pulse Ox Last 24 Hr 98.6 F-100.9 F 82-105 18-20 139-180/87-93 97-98 cor-rrr lungs clear abd soft,nt ext right foot unchanged CBC, BMP 02/05/20 07:50 02/05/20 07:50 Microbiology 02/03/20 13:05 Blood - Peripheral Venous Blood Culture - Preliminary NO GROWTH OBTAINED AFTER 48 HOURS, INCUBATION TO CONTINUE FOR 3 DAYS. 02/03/20 13:05 Blood - Peripheral Venous Blood Culture - Preliminary NO GROWTH OBTAINED AFTER 48 HOURS, INCUBATION TO CONTINUE FOR 3 DAYS. 02/03/20 16:20 Toe - Right Hallux Gram Stain - Final 02/03/20 16:20 Toe - Right Hallux Wound Culture - Preliminary Lactose Fermenting Neg Bacilli Non Lactose Fermenting Gnb a/p diabetic foot ulcer PVD nonhealing wound gangrenous second toe dementia continue antibiotics vanco/zosyn f/u cultures check vanco level f/u with vascular surgery Problem List - Problems (1) Fever Code(s): R50.9 - FEVER, UNSPECIFIED (2) Diabetic foot infection Code(s): E11.628 - TYPE 2 DIABETES MELLITUS WITH OTHER SKIN COMPLICATIONS; L08.9 - LOCAL INFECTION OF THE SKIN AND SUBCUTANEOUS TISSUE, UNSP (3) PVD (peripheral vascular disease) Code(s): I73.9 - PERIPHERAL VASCULAR DISEASE, UNSPECIFIED (4) CKD (chronic kidney disease) Code(s): N18.9 - CHRONIC KIDNEY DISEASE, UNSPECIFIED (5) Anemia Code(s): D64.9 - ANEMIA, UNSPECIFIED
[2020-02-05] MEDS ORDERED: HEPARIN NA (PORCINE) 5,000 UNITS/ML 1ML VIAL ONE (14:55)
[2020-02-05] MEDS ORDERED: LIDOCAINE HCL 1%, 10 MG/ML (20ML VIAL) ONE (14:55)
[2020-02-05] MEDS ORDERED: PROPOFOL 20 ML ONE ×2 (15:44→17:00)
[2020-02-05] MEDS ORDERED: LIDOCAINE HCL/PF 2% SDV 5ML VIAL ONE (15:44)
[2020-02-05] MEDS ORDERED: ceFAZolin SODIUM 1 GM VIAL IVPB ONE (16:06)
[2020-02-05] MEDS ORDERED: LIDOCAINE HCL 1%, 10 MG/ML (20ML VIAL) INF ONE (16:16)
[2020-02-05] MEDS ORDERED: HEPARIN NA (PORCINE) 5,000 UNITS/ML 1ML VIAL SQ ONE (16:16)
[2020-02-05] MEDS ORDERED: LIDOCAINE HCL 1%, 10 MG/ML (20ML VIAL) NR ONE (16:21)
[2020-02-05] MEDS ORDERED: VANCOMYCIN 1 GM in D5W (PRE-DOCKED) 1,000 MG/250 ML IVPB SCH ×2 (17:00→19:15)
--- NOTE | 2020-02-05 17:22 | OP ---
Operative Note - Note: Operative Date: 02/05/20 Pre-Operative Diagnosis: Right foot gangrene Operation: CO2 aortogram, RLE angiogram Findings: SFA occlusion Post-Operative Diagnosis: Same as Pre-op Surgeon: Thien Pineda Anesthesia: MAC Estimated Blood Loss (mls): 50 Operative Report Dictated: Yes
--- NOTE | 2020-02-05 17:39 | PN ---
Progress Note (short form) - Note Progress Note: Vascular Surgery S/P RLE angiogram. Right SFA is occluded. Pt has two vessel runoff to the foot. In order to heal the foot --pt will need a fem-pop above knee bypass. Please obtain cardiology clearance. Can do bypass next week. Betadine soaked dressings to right foot amp site daily. Thien forte DO
[2020-02-05] MEDS ORDERED: LABETALOL HCL 5 MG/1 ML (100MG/20 ML VIAL) IVPUSH ONE ×2 (18:07→18:10)
[2020-02-05] MEDS: SODIUM CHLORIDE 1,000 ML IV SCH (18:14)
[2020-02-05] MEDS ORDERED: SODIUM CHLORIDE 1,000 ML IV SCH (18:31)
[2020-02-05] MEDS: D5-NS + 20 MEQ KCL - 20 MEQ/1,000 ML INFUS.BAG IV SCH (19:00)
[2020-02-05] MEDS ORDERED: QUEtiapine FUMARATE 25 MG TABLET ONE (21:00)
[2020-02-05] MEDS ORDERED: PT OWN MED DRAWER 7, Y5N ONE (21:01)
[2020-02-05] MEDS: ATORVASTATIN CA 20 MG TABLET (FP) PO SCH (21:28)
[2020-02-05] MEDS: INSULIN (LEVEMIR) 100 UNITS/ML UNITS SQ SCH (21:29)
[2020-02-05] MEDS: QUEtiapine FUMARATE 50 MG TABLET PO SCH (21:29)
[2020-02-05] MEDS ORDERED: ACETAMINOPHEN 1000 MG/100 ML VIAL (NON FORMULARY) IVPB PRN (21:37)
[2020-02-06] MEDS ORDERED: amLODIPine BESYLATE 10 MG TABLET (FP) PO ONE (02:11)
[2020-02-06] MEDS ORDERED: PIPERACILLIN/TAZOBACTAM 2.25 GM VIAL IVPB ONE ×2 (02:14→08:50)
[2020-02-06] MEDS ORDERED: DEXTROSE 5%-WATER - 50 ML IVPB ONE ×2 (02:15→08:51)
[2020-02-06] MEDS: PIPERACILLIN/TAZOB 2.25 GM 2.25 GM in DEXTROSE 5%-WATER - 50 ML IVPB SCH ×2 (02:24→09:05)
[2020-02-06] MEDS: GABAPENTIN 300 MG CAPSULE PO SCH ×3 (06:29→21:12)
[2020-02-06] MEDS: INSULIN SLIDING SCALE (NOVOLOG) 1 VIAL SQ SCH ×4 (06:29→21:14)
[2020-02-06] MEDS: HEPARIN NA (PORCINE) 5,000 UNITS/ML 1ML VIAL SQ SCH ×2 (06:29→13:17)
[2020-02-06] MEDS: D5-NS + 20 MEQ KCL - 20 MEQ/1,000 ML INFUS.BAG IV SCH (06:30)
[2020-02-06] MEDS ORDERED: hydrALAZINE HCL 20 MG/ML VIAL IVPB ONE (07:24)
[2020-02-06 08:51] LABS: BASO % 0.5 % (0-2.0); EOS % 2.2 % (0-4.5); HEMATOCRIT 26.6 % (35.4-49); HEMOGLOBIN 8.9 GM/dL (11.7-16.9); MCH 27.4 pg (25.7-33.7); MCHC 33.6 g/dl (32.0-35.9); MEAN CELL VOLUME 81.5 fl (80-96); MEAN PLT VOLUME 7.8 fl (7.5-11.1); MONO % 8.1 % (3.8-10.2); NEUT % 79.2 % (42.8-82.8); PLATELET COUNT 286 K/MM3 (134-434); RBC 3.26 M/mm3 (4.00-5.60); WHITE BLOOD COUNT 8.8 K/mm3 (4.0-10.0)
[2020-02-06] MEDS: CARVEDILOL 3.125 MG TABLET (FP) PO SCH ×2 (09:06→21:13)
[2020-02-06] MEDS: CLOPIDOGREL BISULFATE 75 MG TABLET (FP) PO SCH (09:09)
[2020-02-06] MEDS: FAMOTIDINE 20 MG TABLET PO SCH ×2 (09:09→21:13)
[2020-02-06] MEDS: ASPIRIN 81 MG CHEWABLE TABLETS PO SCH (09:09)
[2020-02-06] MEDS: DIGOXIN 0.125 MG TABLET (FP) PO SCH (09:09)
[2020-02-06] MEDS: MULTIVITAMINS (DAILY MVI) TABLET (FP) PO SCH (09:09)
[2020-02-06] MEDS: sitaGLIPtin PHOSPHATE 50 MG TABLET PO SCH (09:09)
[2020-02-06] MEDS: COLLAGENASE CLOSTRIDIUM HIST. 30 GRAMS TUBE TP SCH (09:10)
[2020-02-06 09:14] LABS: BLOOD UREA NITROGEN 10.8 mg/dL (7-18); CALCIUM 8.2 mg/dL (8.5-10.1); CREATININE 1.2 mg/dL (0.55-1.3); POTASSIUM 3.8 mmol/L (3.5-5.1)
[2020-02-06] MEDS ORDERED: INSULIN (NOVOLOG) ASPART 100 UNITS/ML 10ML VIAL ONE ×2 (11:27→21:01)
[2020-02-06] MEDS ORDERED: PT OWN MED DRAWER 7, Y5N ONE (13:14)
[2020-02-06] MEDS: DOCUSATE SODIUM 100 MG CAPSULE (FP) PO SCH ×2 (13:16→21:12)
[2020-02-06] MEDS: POLYETHYLENE GLYCOL 3350 119 GM BTL PO SCH (13:18)
[2020-02-06] MEDS: ERTAPENEM SODIUM 1 GM in SODIUM CHLORIDE 50 ML IVPB SCH (13:25)
--- NOTE | 2020-02-06 16:13 | PN ---
Progress Note, Physician Chief Complaint: No acute events overnight History of Present Illness: 64 years old man DNR/DNI, care home resident [[facility]] multiple medical comorbidities including uncontrolled type 2 diabetes mellitus, hypertension, hypercholesteremia, CKD stage III, paroxysmal atrial fibrillation, peripheral artery disease, congestive heart failure, Right foot osteomyelitis status post right great toe amputation on IV Zosyn and vancomycin day 10 at care home, via PICC line yesterday PICC line clogged the patient could received IV antibiotic, amputation is scheduled at place with infected wound, wet gangrene of second toe, patient is transferred to [place] ED for further evaluation and management, patient has low-grade fever looks lethargic - Current Medication List Current Medications: Active Medications Acetaminophen (Ofirmev Injection -) 1,000 mg IVPB Q6H PRN PRN Reason: PAIN LEVEL 6-10 Stop: 02/06/20 21:37 Last Admin: 02/05/20 21:44 Dose: 1,000 mg Documented by: Aspirin (Asa -) 81 mg PO DAILY [facility] Last Admin: 02/06/20 09:09 Dose: 81 mg Documented by: Atorvastatin Calcium (Lipitor -) 20 mg PO HS [facility] Last Admin: 02/05/20 21:28 Dose: 20 mg Documented by: Carvedilol (Coreg -) 3.125 mg PO BID [facility] Last Admin: 02/06/20 09:06 Dose: 3.125 mg Documented by: Clopidogrel Bisulfate (Plavix -) 75 mg PO DAILY [facility] Last Admin: 02/06/20 09:09 Dose: 75 mg Documented by: Collagenase (Santyl -) 1 applic TP DAILY [facility]; Protocol Last Admin: 02/06/20 09:10 Dose: Not Given Documented by: Digoxin (Lanoxin -) 0.125 mg PO DAILY [facility] Last Admin: 02/06/20 09:09 Dose: 0.125 mg Documented by: Docusate Sodium (Colace -) 100 mg PO BID [facility] Last Admin: 02/06/20 13:16 Dose: 100 mg Documented by: Famotidine (Pepcid -) 20 mg PO BID [facility] Last Admin: 02/06/20 09:09 Dose: 20 mg Documented by: Fentanyl (Sublimaze Injection -) 50 mcg IVPUSH [id number] PRN PRN Reason: PAIN-PACU ORDER X 4 DOSES ONLY Last Admin: 02/05/20 17:40 Dose: 50 mcg Documented by: Gabapentin (Neurontin -) 300 mg PO TID [facility] Last Admin: 02/06/20 13:16 Dose: 300 mg Documented by: Heparin Sodium (Porcine) (Heparin -) 5,000 unit SQ TID [facility] Last Admin: 02/06/20 13:17 Dose: 5,000 unit Documented by: Ertapenem 1 gm/ Sodium (Chloride) 50 mls @ 100 mls/hr IVPB DAILY [facility] Last Admin: 02/06/20 13:25 Dose: 100 mls/hr Documented by: Insulin Aspart (Novolog Vial Sliding Scale -) 1 vial SQ [facility]; Protocol Last Admin: 02/06/20 11:29 Dose: 4 units Documented by: Insulin Detemir (Levemir Vial) 40 units SQ HS [facility] Last Admin: 02/05/20 21:29 Dose: 40 units Documented by: Multivitamins/Minerals/Vitamin C (Tab-A-Vit -) 1 tab PO DAILY [facility] Last Admin: 02/06/20 09:09 Dose: 1 tab Documented by: Polyethylene Glycol (Miralax (For Daily Use) -) 17 gm PO DAILY [facility] Last Admin: 02/06/20 13:18 Dose: 17 gm Documented by: Quetiapine Fumarate (Seroquel -) 50 mg PO [facility] Last Admin: 02/05/20 21:29 Dose: 50 mg Documented by: Sitagliptin Phosphate (Januvia -) 100 mg PO DAILY [facility] Last Admin: 02/06/20 09:09 Dose: 100 mg Documented by: Vancomycin HCl (Vancomycin (Pre-Docked)) 1,000 mg IVPB DAILY@1700 [facility]; Protocol - Objective Vital Signs: Vital Signs Temperature 99.1 F 02/06/20 13:30 Pulse Rate 100 H 02/06/20 13:30 Respiratory Rate 18 02/06/20 13:30 Blood Pressure 155/78 02/06/20 13:30 O2 Sat by Pulse Oximetry (%) 95 02/06/20 13:30 Constitutional: Yes: Well Nourished, No Distress Eyes: Yes: WNL, Conjunctiva Clear, EOM Intact HENT: Yes: WNL, Atraumatic, Normocephalic Neck: Yes: WNL, Supple, Trachea Midline Cardiovascular: Yes: WNL, Regular Rate and Rhythm Respiratory: Yes: WNL, Regular, CTA Bilaterally Gastrointestinal: Yes: WNL, Normal Bowel Sounds, Soft Musculoskeletal: Yes: WNL Extremities: Yes: WNL Edema: No Peripheral Pulses WNL: Yes Integumentary: Yes: WNL Wound/Incision: Yes: Clean/Dry, Well Approximated Neurological: Yes: WNL, Alert, Oriented ...Motor Strength: WNL Psychiatric: Yes: WNL, Alert, Oriented Labs: CBC, BMP 02/06/20 07:57 02/06/20 07:57 Impression/Plan Impression/Plan: 64 years old man DNR/DNI, care home resident [[facility]] multiple medical comorbidities including uncontrolled type 2 diabetes mellitus, hypertension, hypercholesteremia, CKD stage III, paroxysmal atrial fibrillation, peripheral artery disease, congestive heart failure, Right foot osteomyelitis status post right great toe amputation on IV Zosyn and vancomycin day 10 at care home, via PICC line yesterday PICC line clogged the patient could received IV antibiotic, amputation is scheduled at place with infected wound, wet gangrene of second toe, patient is transferred to [place] ED for further evaluation and management, patient has low-grade fever looks lethargic 1) Foot osteomyelitis, right Assessment/Plan: Patient has peripheral artery disease with right foot cellulitis/osteomyelitis status post right great amputation on IV antibiotic Vancomycin/invanz Elevated ESR and CRP, most likely osteomyelitis Follow-up ID and vascular recommendations, patiet is s/P RLE angiogram on 02/04 Right SFA is occluded. Pt has two vessel runoff to the foot. In order to heal the foot --pt will need a fem-pop above knee bypass to be scheduled next week Needs cardiology clearance Code(s): M86.9 - OSTEOMYELITIS, UNSPECIFIED (2) Uncontrolled type 2 diabetes mellitus Assessment/Plan: Correction dose insulin optimize as per Accu-Chek, Also on PO januvia , levemir 40 units QHS On diabetic diet Code(s): E11.65 - TYPE 2 DIABETES MELLITUS WITH HYPERGLYCEMIA (3) Paroxysmal atrial fibrillation Assessment/Plan: History of present atrial fibrillation, current EKG normal sinus rhythm, on digoxin follow dig levels resume home medications. Currently on ASA, and plavix Code(s): I48.0 - PAROXYSMAL ATRIAL FIBRILLATION (4) CKD stage 3 due to type 2 diabetes mellitus Assessment/Plan: Due to diabetes nephropathy follow-up BMP are stable today's creatinine is 1.4 Code(s): E11.22 - TYPE 2 DIABETES MELLITUS W DIABETIC CHRONIC KIDNEY DISEASE; N18.3 - CHRONIC KIDNEY DISEASE, STAGE 3 (MODERATE) (5) Hypertension Assessment/Plan: Well-controlled continue norvasc, and coreg Code(s): I10 - ESSENTIAL (PRIMARY) HYPERTENSION (6) Congestive heart failure Assessment/Plan: Patient has normal ejection fraction, continue coreg, and digoxin, digoxin level is 1.32 Code(s): I50.9 - HEART FAILURE, UNSPECIFIED Qualifiers: Heart failure type: unspecified (7) Anemia Assessment/Plan: Follow-up anemia work-up and H&H. Hemoglobin is stable D/C SQ heparin while on ASA, and plavix Code(s): D64.9 - ANEMIA, UNSPECIFIED ] Visit type - Emergency Visit Emergency Visit: Yes ED Registration Date: 02/03/20 Care time: The patient presented to the Emergency Department on the above date and was hospitalized for further evaluation of their emergent condition. - New Patient This patient is new to me today: Yes Date on this admission: 02/06/20 - Critical Care Critical Care patient: No - Discharge Referral Referred to [facility] No
[2020-02-06] MEDS: VANCOMYCIN 1 GM in D5W (PRE-DOCKED) 1,000 MG/250 ML IVPB SCH (16:53)
[2020-02-06] MEDS ORDERED: QUEtiapine FUMARATE 25 MG TABLET ONE (21:02)
[2020-02-06] MEDS: ATORVASTATIN CA 20 MG TABLET (FP) PO SCH (21:12)
[2020-02-06] MEDS: INSULIN (LEVEMIR) 100 UNITS/ML UNITS SQ SCH (21:13)
[2020-02-06] MEDS: QUEtiapine FUMARATE 50 MG TABLET PO SCH (21:15)
[2020-02-07] MEDS: GABAPENTIN 300 MG CAPSULE PO SCH ×3 (05:59→22:11)
[2020-02-07] MEDS: INSULIN SLIDING SCALE (NOVOLOG) 1 VIAL SQ SCH ×4 (06:00→22:14)
--- NOTE | 2020-02-07 09:05 | CON.CARD ---
Consult Consult Specialty:: cardio - History of Present Illness Chief Complaint: foot ulcer History of Present Illness: 64 male here being treated for diabetic foot ulcer with non-healing wound. seen by dr forte, vascular--had debridement. angiogram done showing R SFA occluded. plans for bypass once optimized from cardiac status. pt with dementia and schizophrenia, little reliable history. he states he would like to go back to...? he directly denies cp, sob, palp, syncope or any cardiac history but ? reliable PMH: DM, Schizophrenia, HTN, HLD, GERD, Dementia, EtOH Use Disorder - Past Medical History CONSTRUCTION CONSULTANT: Yes: Dementia Cardio/Vascular: Yes: CAD, HTN, Hyperlipdemia Gastrointestinal: Yes: GERD Psych: Yes: Schizophrenia - Past Surgical History Additional Surgical History: right femoral endarterectomy. right first partial ray amputation - Alcohol/Substance Use Hx Alcohol Use: Yes - Smoking History Smoking history: Former smoker Have you smoked in the past 12 months: No If you are a former smoker, when did you quit?: 15 yrs ago - Social History Usual Living Arrangement: Half-Way ADL: Support Services History of Recent Travel: No Home Medications - Allergies Allergies/Adverse Reactions: Allergies Allergy/AdvReac Type Severity Reaction Status Date / Time No Known Allergies Allergy Verified 02/03/20 12:20 - Home Medications Home Medications: Ambulatory Orders Amaryl - 4 mg PO DAILY 01/22/20 Aspirin [ASA -] 81 mg PO DAILY 01/22/20 Carvedilol 3.125 mg PO BID 01/22/20 Clopidogrel Bisulfate [Plavix] 75 mg PO DAILY 01/22/20 Digoxin [Lanoxin -] 1 tab PO DAILY 01/22/20 Famotidine 20 mg PO BID 01/22/20 Furosemide [Lasix] 40 mg PO DAILY 01/22/20 Gabapentin 300 mg PO TID 01/22/20 Quetiapine Fumarate [Seroquel -] 50 mg PO HS 01/22/20 Ramipril [Altace] 5 mg PO DAILY 01/22/20 Simvastatin [Zocor -] 40 mg PO HS 01/22/20 Sitagliptin Phosphate [Januvia -] 100 mg PO DAILY 01/22/20 Spironolactone 25 mg PO DAILY 01/22/20 Acetaminophen [Tylenol -] 100 mg PO Q8H MDD 3000 02/03/20 Collagenase Clostridium Hist. [Santyl] 1 applic TP DAILY 02/03/20 Insulin Detemir [Levemir Flextouch] 60 unit SQ HS 02/03/20 Multivitamin 1 each PO DAILY 02/03/20 Oxycodone HCl 5 mg PO DAILY 02/03/20 Piperacillin/Tazob 3.375 gm [Zosyn 3.375GM Ivpb (Pre-Docked)] 3.375 gm IVPB TID 02/03/20 Vancomycin 1 Gram (Pre-Docked) [Vancomycin (Pre-Docked)] 1 gm IVPB BID 02/03/20 Family Medical History Family History: Unable to Obtain (unreliable historian) Review of Systems Unable to obtain ROS, reason: unreliable historian Vital Signs: Vital Signs Temperature 98.8 F 02/07/20 05:00 Pulse Rate 98 H 02/07/20 05:00 Respiratory Rate 18 02/07/20 05:00 Blood Pressure 143/84 02/07/20 05:00 O2 Sat by Pulse Oximetry (%) 94 L 02/07/20 05:00 Constitutional: Yes: Well Nourished, No Distress Eyes: No: Sclera Icterus HENT: No: Nasal Congestion Neck: No: Decreased ROM Respiratory: Yes: CTA Bilaterally. No: Accessory Muscle Use, Rales, Wheezes Gastrointestinal: Yes: Normal Bowel Sounds. No: Distention, Hepatomegaly, Palpable Mass, Tenderness Cardiovascular: Yes: Regular Rate and Rhythm JVD: No Carotid Bruit: No PMI: Non-Displaced Heart Sounds: Yes: S1, S2. No: Gallop Murmur: No: Systolic Murmur, Diastolic Murmur Musculoskeletal: Yes: Other (No kyphosis) Edema: No Peripheral Pulses: 2+ Left Carotid, 2+ Right Carotid, 2+ Left Doralis Pedis, 2+ Right Dorsalis Pedis Integumentary: No: Jaundice Neurological: Yes: Alert. No: Seizure Psychiatric: No: Agitated - Other Data Labs, Other Data: CBC, BMP 02/06/20 07:57 02/06/20 07:57 Assessment/Plan ECG: CXR: ATX vs infiltrate R base, no effusions/congestion preop CV eval, PAD for LE bypass: -cannot evaluate for cardiac sx's due to his mental capacity -mult RFs for CAD/cardiomyopathy including DM, prior etoh abuse, age -rec echo, pharm MPI for risk stratification (on carvedilol, digoxin--decr EF?) -pt on plavix, unknown indication (PAD?)--mgmt perioperatively per vascular -abnormal CXR with atx vs infiltrate R base--tx and medical optimization per hospitalist -on digoxin for unclear indication, level ok here. repeat ordered. DM: -per hospitalist HTN: -bp has been very labile here, this AM is controlled -cont present meds, observe trend HPL: -cont statin
[2020-02-07] MEDS ORDERED: PT OWN MED DRAWER 7, Y5N ONE (10:00)
[2020-02-07] MEDS: ERTAPENEM SODIUM 1 GM in SODIUM CHLORIDE 50 ML IVPB SCH (10:04)
[2020-02-07] MEDS: DIGOXIN 0.125 MG TABLET (FP) PO SCH (10:04)
[2020-02-07] MEDS: POLYETHYLENE GLYCOL 3350 119 GM BTL PO SCH (10:04)
[2020-02-07] MEDS: sitaGLIPtin PHOSPHATE 50 MG TABLET PO SCH (10:05)
[2020-02-07] MEDS: CLOPIDOGREL BISULFATE 75 MG TABLET (FP) PO SCH (10:05)
[2020-02-07] MEDS: DOCUSATE SODIUM 100 MG CAPSULE (FP) PO SCH ×2 (10:05→22:11)
[2020-02-07] MEDS: FAMOTIDINE 20 MG TABLET PO SCH ×2 (10:05→22:11)
[2020-02-07] MEDS: MULTIVITAMINS (DAILY MVI) TABLET (FP) PO SCH (10:05)
[2020-02-07] MEDS: CARVEDILOL 3.125 MG TABLET (FP) PO SCH ×2 (10:05→22:11)
[2020-02-07] MEDS: ASPIRIN 81 MG CHEWABLE TABLETS PO SCH (10:05)
[2020-02-07] MEDS: COLLAGENASE CLOSTRIDIUM HIST. 30 GRAMS TUBE TP SCH (10:06)
--- NOTE | 2020-02-07 10:51 | PN ---
Physical Exam: SUBJECTIVE: Patient seen and examined 02/07/20: not answering questions, confused OBJECTIVE: Vital Signs Period Temp Pulse Resp BP Sys/Leahy Pulse Ox Last 24 Hr 98.8 F-99.4 F 98-107 18-18 137-183/73-97 94-99 GENERAL: The patient is awake, alert but confused, in no acute distress. HEAD: Normal with no signs of trauma. EYES: extraocular movements intact, sclera anicteric, conjunctiva clear. No ptosis. ENT: Ears normal, nares patent, oropharynx clear without exudates, moist mucous membranes. NECK: Trachea midline, full range of motion, supple. LUNGS: Breath sounds equal, clear to auscultation bilaterally, no wheezes, no crackles, no accessory muscle use. decreased migdalia HEART: Regular rate and rhythm, S1, S2 without murmur, rub or gallop. ABDOMEN: Soft, nontender, nondistended, normoactive bowel sounds, no guarding, no rebound, no hepatosplenomegaly, no masses. EXTREMITIES: RIGHT FOOT DRESSING C/D/I NEUROLOGICAL: Cranial nerves II through XII grossly intact. Normal speech, gait not observed. PSYCH: UNABLE TO ASSESS SKIN: Warm, dry, normal turgor, no rashes or lesions noted POS RIGHT FOOT GANGRENE, N DRESSING CURRENTLY Laboratory Results - last 24 hr 02/06/20 02/06/20 02/06/20 10:33 11:19 16:50 POC Glucometer 243 297 Stool Occult Blood Negative 02/06/20 02/07/20 21:09 05:58 POC Glucometer 249 209 Stool Occult Blood Active Medications Generic Name Dose Route Start Last Admin Trade Name Anitra PRN Reason Stop Dose Admin Aspirin 81 mg 02/06/20 10:00 02/07/20 10:05 Asa - PO 81 mg DAILY HUGO Administration Atorvastatin Calcium 20 mg 02/05/20 22:00 02/06/20 21:12 Lipitor - PO 20 mg HS HUGO Administration Carvedilol 3.125 mg 02/05/20 22:00 02/07/20 10:05 Coreg - PO 3.125 mg BID HUGO Administration Clopidogrel Bisulfate 75 mg 02/06/20 10:00 02/07/20 10:05 Plavix - PO 75 mg DAILY HUGO Administration Collagenase 1 applic 02/06/20 10:00 02/07/20 10:06 Santyl - TP 1 applic DAILY HUGO Administration Protocol Digoxin 0.125 mg 02/06/20 10:00 02/07/20 10:04 Lanoxin - PO 0.125 mg DAILY HUGO Administration Docusate Sodium 100 mg 02/06/20 11:15 02/07/20 10:05 Colace - PO 100 mg BID HUGO Administration Famotidine 20 mg 02/05/20 22:00 02/07/20 10:05 Pepcid - PO 20 mg BID HUGO Administration Fentanyl 50 mcg 02/05/20 18:06 02/05/20 17:40 Sublimaze Injection - IVPUSH 50 mcg [id number] PRN Administration PAIN-PACU ORDER X 4 DOSES ONLY Gabapentin 300 mg 02/05/20 22:00 02/07/20 05:59 Neurontin - PO 300 mg TID HUGO Administration Ertapenem 1 gm/ Sodium 50 mls @ 100 mls/hr 02/06/20 11:15 02/07/20 10:04 Chloride IVPB 100 mls/hr DAILY HUGO Administration Insulin Aspart 1 vial 02/05/20 22:00 02/07/20 06:00 Novolog Vial Sliding Scale - SQ 4 units ACHS HUGO Administration Protocol Insulin Detemir 40 units 02/05/20 22:00 02/06/20 21:13 Levemir Vial SQ 40 units HS HUGO Administration Multivitamins/Minerals/Vitamin C 1 tab 02/06/20 10:00 02/07/20 10:05 Tab-A-Vit - PO 1 tab DAILY HUGO Administration Polyethylene Glycol 17 gm 02/06/20 11:15 02/07/20 10:04 Miralax (For Daily Use) - PO 17 gm DAILY HUGO Administration Quetiapine Fumarate 50 mg 02/05/20 22:00 02/06/20 21:15 Seroquel - PO 50 mg HS HUGO Administration Sitagliptin Phosphate 100 mg 02/06/20 10:00 02/07/20 10:05 Januvia - PO 100 mg DAILY HUGO Administration Vancomycin HCl 1,000 mg 02/06/20 17:00 02/06/20 16:53 Vancomycin (Pre-Docked) IVPB 1,000 mg DAILY@1700 HUGO Administration Protocol NO NEW LABS DONE TODAY ASSESSMENT/PLAN: 64 years old man DNR/DNI, detention resident [[facility] rehabilitation and detention [facility] plan] multiple medical comorbidities including uncontrolled type 2 diabetes mellitus, hypertension, hypercholesteremia, CKD stage III, paroxysmal atrial fibrillation, peripheral artery disease, congestive heart failure, Right foot osteomyelitis status post right great toe amputation on IV Zosyn and vancomycin day 10 at detention, via PICC line. PICC line clogged the patient could not received IV antibiotics, amputation was scheduled at place with infected wound, wet gangrene of second toe, but patient is transferred to [place] ED for further evaluation and management. 1) Foot osteomyelitis, right Assessment/Plan: Patient has peripheral artery disease with right foot cellulitis/osteomyelitis status post right great amputation on IV antibiotic Vancomycin/invanz Elevated ESR and CRP due to osteomyelitis Follow-up ID and vascular recommendations, patiet is s/P RLE angiogram on 02/04 Right SFA is occluded. Pt requires a fem-pop above knee bypass to be scheduled next week Needs cardiology clearance - cardio eval appreciated and noted Need echo, nuc stress prior to surgery Code(s): M86.9 - OSTEOMYELITIS, UNSPECIFIED (2) Uncontrolled type 2 diabetes mellitus Assessment/Plan: Correction dose insulin optimize as per Accu-Chek, Also on PO januvia , levemir 40 units QHS On diabetic diet DC po diabetic agents Increase Levemir as hyperglycemic currently Code(s): E11.65 - TYPE 2 DIABETES MELLITUS WITH HYPERGLYCEMIA (3) Paroxysmal atrial fibrillation Assessment/Plan: History of paroxysmanl atrial fibrillation, on digoxin, level stable Currently on ASA, and plavix Code(s): I48.0 - PAROXYSMAL ATRIAL FIBRILLATION (4) CKD stage 3 due to type 2 diabetes mellitus Assessment/Plan: Due to diabetes nephropathy follow-up BMP are stable and cr normal today monitor Code(s): E11.22 - TYPE 2 DIABETES MELLITUS W DIABETIC CHRONIC KIDNEY DISEASE; N18.3 - CHRONIC KIDNEY DISEASE, STAGE 3 (MODERATE) (5) Hypertension Assessment/Plan: Well-controlled continue norvasc, and coreg Code(s): I10 - ESSENTIAL (PRIMARY) HYPERTENSION (6) Congestive heart failure Assessment/Plan: Patient has normal ejection fraction, continue coreg, and digoxin, digoxin level is 1.32 Compensated currently on exam Code(s): I50.9 - HEART FAILURE, UNSPECIFIED Qualifiers: Heart failure type: unspecified (7) Anemia Assessment/Plan: Follow-up anemia work-up and H&H. Hemoglobin is stable monitor prior to surgery Code(s): D64.9 - ANEMIA, UNSPECIFIED (8) DVt prophy - add sq heparin, asa and plavix not for dvt prophy Visit type - Emergency Visit Emergency Visit: Yes ED Registration Date: 02/03/20 Care time: The patient presented to the Emergency Department on the above date and was hospitalized for further evaluation of their emergent condition. - New Patient This patient is new to me today: Yes Date on this admission: 02/07/20 - Critical Care Critical Care patient: No - Discharge Referral Referred to [facility] Med P.C.: No
[2020-02-07] MEDS: VANCOMYCIN 1 GM in D5W (PRE-DOCKED) 1,000 MG/250 ML IVPB SCH (16:21)
[2020-02-07] MEDS ORDERED: QUEtiapine FUMARATE 25 MG TABLET ONE (22:07)
[2020-02-07] MEDS: INSULIN (LEVEMIR) 100 UNITS/ML UNITS SQ SCH (22:11)
[2020-02-07] MEDS: ATORVASTATIN CA 20 MG TABLET (FP) PO SCH (22:11)
[2020-02-07] MEDS: QUEtiapine FUMARATE 50 MG TABLET PO SCH (22:12)
[2020-02-07] MEDS ORDERED: INSULIN (NOVOLOG) ASPART 100 UNITS/ML 10ML VIAL ONE (22:14)
[2020-02-08] MEDS ORDERED: INSULIN (NOVOLOG) ASPART 100 UNITS/ML 10ML VIAL ONE (05:51)
[2020-02-08] MEDS: GABAPENTIN 300 MG CAPSULE PO SCH ×3 (06:10→21:30)
[2020-02-08] MEDS: INSULIN SLIDING SCALE (NOVOLOG) 1 VIAL SQ SCH ×4 (06:13→21:31)
[2020-02-08] MEDS ORDERED: REGADENOSON 0.4 MG/5 ML PRE-FILLED SYRINGE IVPUSH ONE (09:30)
[2020-02-08 09:47] LABS: HEMATOCRIT 28.7 % (35.4-49); HEMOGLOBIN 9.6 GM/dL (11.7-16.9); MCH 27.1 pg (25.7-33.7); MCHC 33.5 g/dl (32.0-35.9); MEAN CELL VOLUME 80.9 fl (80-96); MEAN PLT VOLUME 7.7 fl (7.5-11.1); PLATELET COUNT 307 K/MM3 (134-434); RBC 3.55 M/mm3 (4.00-5.60); RDW 14.3 % (11.9-15.9); WHITE BLOOD COUNT 9.3 K/mm3 (4.0-10.0)
[2020-02-08] MEDS: FAMOTIDINE 20 MG TABLET PO SCH ×2 (09:48→21:31)
[2020-02-08] MEDS: MULTIVITAMINS (DAILY MVI) TABLET (FP) PO SCH (09:49)
[2020-02-08] MEDS: COLLAGENASE CLOSTRIDIUM HIST. 30 GRAMS TUBE TP SCH (09:49)
[2020-02-08] MEDS: CARVEDILOL 3.125 MG TABLET (FP) PO SCH ×2 (09:49→21:30)
[2020-02-08] MEDS: POLYETHYLENE GLYCOL 3350 119 GM BTL PO SCH (09:49)
[2020-02-08] MEDS: CLOPIDOGREL BISULFATE 75 MG TABLET (FP) PO SCH (09:49)
[2020-02-08] MEDS: ASPIRIN 81 MG CHEWABLE TABLETS PO SCH (09:49)
[2020-02-08] MEDS: DIGOXIN 0.125 MG TABLET (FP) PO SCH (09:49)
[2020-02-08] MEDS: DOCUSATE SODIUM 100 MG CAPSULE (FP) PO SCH ×2 (09:49→21:30)
[2020-02-08] MEDS: sitaGLIPtin PHOSPHATE 50 MG TABLET PO SCH (09:49)
[2020-02-08 10:13] LABS: ALBUMIN 2.1 g/dl (3.4-5.0); BILIRUBIN,TOTAL 0.2 mg/dL (0.2-1); CALCIUM 9.3 mg/dL (8.5-10.1); CREATININE 1.4 mg/dL (0.55-1.3); MAGNESIUM 1.7 mg/dL (1.8-2.4); PHOSPHOROUS 5.2 mg/dL (2.5-4.9); POTASSIUM 3.9 mmol/L (3.5-5.1); TOT PROT 7.3 g/dl (6.4-8.2)
[2020-02-08] MEDS ORDERED: PT OWN MED DRAWER 7, Y5N ONE ×2 (10:54→17:49)
[2020-02-08] MEDS: ERTAPENEM SODIUM 1 GM in SODIUM CHLORIDE 50 ML IVPB SCH (10:56)
--- NOTE | 2020-02-08 14:50 | PN ---
Progress Note (short form) - Note Progress Note: resting comfortably s/p angio- SFA occlusion, debridement of the right foot Vital Signs Period Temp Pulse Resp BP Sys/Leahy Pulse Ox Last 24 Hr 98 F-99.1 F 87-99 16-18 133-188/81-94 95-99 cor-rrr lungs clear abd soft,nt ext right foot wound no purulence, dry gangrene of the second toe, no erythema noted CBC, BMP 02/08/20 08:46 02/08/20 08:46 Microbiology 02/03/20 13:05 Blood - Peripheral Venous Blood Culture - Final NO GROWTH AFTER 5 DAYS INCUBATION 02/03/20 13:05 Blood - Peripheral Venous Blood Culture - Final NO GROWTH AFTER 5 DAYS INCUBATION 02/03/20 16:20 Toe - Right Hallux Gram Stain - Final 02/03/20 16:20 Toe - Right Hallux Wound Culture - Final Klebsiella Pneumoniae - Esbl Proteus Mirabilis Enterococcus Faecalis 02/05/20 07:50 Blood - Peripheral Venous Blood Culture - Preliminary NO GROWTH OBTAINED AFTER 72 HOURS, INCUBATION TO CONTINUE FOR 2 DAYS. 02/05/20 08:08 Blood - Peripheral Venous Blood Culture - Preliminary NO GROWTH OBTAINED AFTER 72 HOURS, INCUBATION TO CONTINUE FOR 2 DAYS. a/p diabetic foot ulcer PVD nonhealing wound gangrenous second toe dementia fevers resolved s/p debridement of the right foot ulcer plans for further revascularization d/c vanco continue ertapenem for now contact isolation for kleb esbl Problem List - Problems (1) Fever Code(s): R50.9 - FEVER, UNSPECIFIED (2) Diabetic foot infection Code(s): E11.628 - TYPE 2 DIABETES MELLITUS WITH OTHER SKIN COMPLICATIONS; L08.9 - LOCAL INFECTION OF THE SKIN AND SUBCUTANEOUS TISSUE, UNSP (3) PVD (peripheral vascular disease) Code(s): I73.9 - PERIPHERAL VASCULAR DISEASE, UNSPECIFIED (4) CKD (chronic kidney disease) Code(s): N18.9 - CHRONIC KIDNEY DISEASE, UNSPECIFIED (5) Anemia Code(s): D64.9 - ANEMIA, UNSPECIFIED
--- NOTE | 2020-02-08 16:45 | PN ---
Progress Note (short form) - Note Progress Note: s: no cp sob palps dizzy Vital Signs Period Temp Pulse Resp BP Sys/Leahy Pulse Ox Last 24 Hr 98 F-99.1 F 87-99 16-18 133-188/81-94 95-99 Constitutional: Yes: Well Nourished, No Distress Eyes: No: Sclera Icterus HENT: No: Nasal Congestion Neck: No: Decreased ROM Respiratory: Yes: CTA Bilaterally. No: Accessory Muscle Use, Rales, Wheezes Gastrointestinal: Yes: Normal Bowel Sounds. No: Distention, Hepatomegaly, Palpable Mass, Tenderness Cardiovascular: Yes: Regular Rate and Rhythm JVD: No Carotid Bruit: No PMI: Non-Displaced Heart Sounds: Yes: S1, S2. No: Gallop Murmur: No: Systolic Murmur, Diastolic Murmur Musculoskeletal: Yes: Other (No kyphosis) Edema: No Peripheral Pulses: 2+ Left Carotid, 2+ Right Carotid, 2+ Left Doralis Pedis, 2+ Right Dorsalis Pedis Integumentary: No: Jaundice Neurological: Yes: Alert. No: Seizure Psychiatric: No: Agitated CBC, BMP 02/08/20 08:46 02/08/20 08:46 Assessment/Plan echo 01/2020: normal LVEF, nl RV, nl valve function. CXR: ATX vs infiltrate R base, no effusions/congestion preop CV eval, PAD for LE bypass: -cannot evaluate for cardiac sx's due to his mental capacity -mult RFs for CAD/cardiomyopathy including DM, prior etoh abuse, age -recent echo unremarkable -plan for pharm MPI for risk stratification -pt on plavix, unknown indication (PAD?)--mgmt perioperatively per vascular -abnormal CXR with atx vs infiltrate R base--tx and medical optimization per hospitalist -on digoxin for unclear indication, level ok here. repeat ordered. DM: -per hospitalist HTN: -bp has been very labile here, this AM is controlled -cont present meds, observe trend HPL: -cont statin
--- NOTE | 2020-02-08 18:45 | PN ---
Progress Note, Physician Chief Complaint: 24HR events Right SFA occlusion, cardiac clearance required for bypass surgery. consent obtained today and pt made NPO at midnight for stress testing in AM History of Present Illness: 64 y/o M PMHx DM, Schizophrenia, HTN, HLD, GERD, Dementia, EtOH Use Disorder who had his R great toe amputated ~ 1 month ago, presents with R 2nd digit gangrene. Patient has dementia at baseline and participates minimally in HPI; Nursing staff at [facility] is unable to provide HPI. Case discussed with his brother Chad (HCP) patient has been a resident of [facility] in [place] for 12 years. Patient was quarantined at [facility] about 3-4 months ago after testing positive for COVID. During this time, he experienced great weakness and had some trauma (unknown mechanism of injury) to his Right great toe. Patients brother says this injury then progressed from a wound (brother presumes) to a black discoloration approx 2 months ago for which he was admitted to [facility]. His R great toe was amputated (Dr. Regino Luke) on 12/10 and patient was discharged to [facility]. At [facility] pt underwent RLE angiogram which revealed right SFA occlusion. He is being followed by vascular surgery for fem-pop bypass. Pt being worked up by cards for clearance. - Current Medication List Current Medications: Active Medications Aspirin (Asa -) 81 mg PO DAILY [facility] Last Admin: 02/08/20 09:49 Dose: 81 mg Documented by: Atorvastatin Calcium (Lipitor -) 20 mg PO HS [facility] Last Admin: 02/07/20 22:11 Dose: 20 mg Documented by: Carvedilol (Coreg -) 3.125 mg PO BID [facility] Last Admin: 02/08/20 09:49 Dose: 3.125 mg Documented by: Clopidogrel Bisulfate (Plavix -) 75 mg PO DAILY [facility] Last Admin: 02/08/20 09:49 Dose: 75 mg Documented by: Collagenase (Santyl -) 1 applic TP DAILY [facility]; Protocol Last Admin: 02/08/20 09:49 Dose: 1 applic Documented by: Digoxin (Lanoxin -) 0.125 mg PO DAILY [facility] Last Admin: 02/08/20 09:49 Dose: 0.125 mg Documented by: Docusate Sodium (Colace -) 100 mg PO BID [facility] Last Admin: 02/08/20 09:49 Dose: 100 mg Documented by: Famotidine (Pepcid -) 20 mg PO BID [facility] Last Admin: 02/08/20 09:48 Dose: 20 mg Documented by: Fentanyl (Sublimaze Injection -) 50 mcg IVPUSH [id number] PRN PRN Reason: PAIN-PACU ORDER X 4 DOSES ONLY Last Admin: 02/05/20 17:40 Dose: 50 mcg Documented by: Gabapentin (Neurontin -) 300 mg PO TID [facility] Last Admin: 02/08/20 14:58 Dose: 300 mg Documented by: Insulin Aspart (Novolog Vial Sliding Scale -) 1 vial SQ [facility]; Protocol Last Admin: 02/08/20 17:37 Dose: 4 units Documented by: Insulin Detemir (Levemir Vial) 45 units SQ [facility] Last Admin: 02/07/20 22:11 Dose: 45 units Documented by: Multivitamins/Minerals/Vitamin C (Tab-A-Vit -) 1 tab PO DAILY [facility] Last Admin: 02/08/20 09:49 Dose: 1 tab Documented by: Polyethylene Glycol (Miralax (For Daily Use) -) 17 gm PO DAILY [facility] Last Admin: 02/08/20 09:49 Dose: 17 gm Documented by: Quetiapine Fumarate (Seroquel -) 50 mg PO [facility] Last Admin: 02/07/20 22:12 Dose: 50 mg Documented by: Sitagliptin Phosphate (Januvia -) 100 mg PO DAILY [facility] Last Admin: 02/08/20 09:49 Dose: 100 mg Documented by: - Objective Vital Signs: Vital Signs Temperature 98 F 02/08/20 14:00 Pulse Rate 87 02/08/20 14:00 Respiratory Rate 16 02/08/20 14:00 Blood Pressure 133/81 02/08/20 14:00 O2 Sat by Pulse Oximetry (%) 99 02/08/20 14:00 Constitutional: Yes: No Distress, Calm Eyes: Yes: Conjunctiva Clear HENT: Yes: Atraumatic Neck: Yes: Supple Cardiovascular: Yes: Regular Rate and Rhythm Respiratory: Yes: Regular, CTA Bilaterally Gastrointestinal: Yes: Soft, Abdomen, Obese Musculoskeletal: Yes: Joint Stiffness, Muscle Weakness Extremities: Yes: Other (right foot and ankle with dressing) Edema: Yes Edema: LLE: 1+, RLE: 1+ Peripheral Pulses: Left Radial: 2+, Right Radial: 2+, Left Doralis Pedis: 1+ Neurological: Yes: Confusion Labs: CBC, BMP 02/08/20 08:46 02/08/20 08:46 Impression/Plan Impression/Plan: 1) Foot osteomyelitis, right Assessment/Plan: Patient has peripheral artery disease with right foot cellulitis/osteomyelitis status post right great amputation on IV antibiotic Vancomycin/invanz Elevated ESR and CRP due to osteomyelitis Follow-up ID and vascular recommendations, patiet is s/P RLE angiogram on 02/04 Right SFA is occluded. Pt requires a fem-pop above knee bypass Needs cardiology clearance - cardio eval appreciated and noted -- stress test for 02/08 (NPO after midnight) neurontin TID continue lipitor collagenase dressing to RLE Code(s): M86.9 - OSTEOMYELITIS, UNSPECIFIED (2) Uncontrolled type 2 diabetes mellitus Assessment/Plan: Insulin SS BG ACHS januvia 100mg daily , levemir 45 units QHS On diabetic diet Code(s): E11.65 - TYPE 2 DIABETES MELLITUS WITH HYPERGLYCEMIA (3) Paroxysmal atrial fibrillation Assessment/Plan: continue digoxin 0.125mg, level therapeutic Currently on ASA, and plavix Code(s): I48.0 - PAROXYSMAL ATRIAL FIBRILLATION (4) CKD stage 3 due to type 2 diabetes mellitus Assessment/Plan: trend intake/output and electrolytes Code(s): E11.22 - TYPE 2 DIABETES MELLITUS W DIABETIC CHRONIC KIDNEY DISEASE; N18.3 - CHRONIC KIDNEY DISEASE, STAGE 3 (MODERATE) (5) Hypertension Assessment/Plan: continue coreg 3.125mg BID Code(s): I10 - ESSENTIAL (PRIMARY) HYPERTENSION (6) Congestive heart failure Assessment/Plan: Patient has normal ejection fraction, continue coreg, and digoxin, Stress test pending as part of pre-op clearance Code(s): I50.9 - HEART FAILURE, UNSPECIFIED Qualifiers: Heart failure type: unspecified (7) Anemia Assessment/Plan: Follow-up anemia work-up and H&H. Hemoglobin is stable monitor prior to surgery pt needs active T and S prior to OR Code(s): D64.9 - ANEMIA, UNSPECIFIED (8) DVt prophy - sq heparin, (9) bowel regimen - senna/colace/miralax (10) GI PPX - H2B daily (11) Code status: DNR/DNI Visit type - Emergency Visit Emergency Visit: Yes ED Registration Date: 02/03/20 Care time: The patient presented to the Emergency Department on the above date and was hospitalized for further evaluation of their emergent condition. - New Patient This patient is new to me today: Yes Date on this admission: 02/08/20 - Critical Care Critical Care patient: No - Discharge Referral Referred to [facility] Med P.C.: No
[2020-02-08] MEDS ORDERED: QUEtiapine FUMARATE 25 MG TABLET ONE (21:26)
[2020-02-08] MEDS: ATORVASTATIN CA 20 MG TABLET (FP) PO SCH (21:30)
[2020-02-08] MEDS: INSULIN (LEVEMIR) 100 UNITS/ML UNITS SQ SCH (21:30)
[2020-02-08] MEDS: QUEtiapine FUMARATE 50 MG TABLET PO SCH (21:31)
[2020-02-09] MEDS: GABAPENTIN 300 MG CAPSULE PO SCH ×3 (06:07→21:06)
[2020-02-09] MEDS: INSULIN SLIDING SCALE (NOVOLOG) 1 VIAL SQ SCH ×4 (06:19→21:07)
[2020-02-09 08:03] LABS: BASO % 0.6 % (0-2.0); EOS % 2.8 % (0-4.5); HEMATOCRIT 27.9 % (35.4-49); HEMOGLOBIN 9.2 GM/dL (11.7-16.9); LYMPH % 13.9 % (8-40); MCH 26.5 pg (25.7-33.7); MEAN CELL VOLUME 80.2 fl (80-96); MEAN PLT VOLUME 7.6 fl (7.5-11.1); MONO % 9.6 % (3.8-10.2); NEUT % 73.1 % (42.8-82.8); PLATELET COUNT 318 K/MM3 (134-434); RBC 3.47 M/mm3 (4.00-5.60); RDW 14.3 % (11.9-15.9); WHITE BLOOD COUNT 8.7 K/mm3 (4.0-10.0)
[2020-02-09 08:29] LABS: BILIRUBIN,TOTAL 0.4 mg/dL (0.2-1); BLOOD UREA NITROGEN 23.1 mg/dL (7-18); CREATININE 1.4 mg/dL (0.55-1.3); MAGNESIUM 1.9 mg/dL (1.8-2.4); POTASSIUM 3.9 mmol/L (3.5-5.1); TOT PROT 6.9 g/dl (6.4-8.2)
[2020-02-09] MEDS: CARVEDILOL 3.125 MG TABLET (FP) PO SCH ×2 (09:33→21:06)
[2020-02-09] MEDS ORDERED: REGADENOSON 0.4 MG/5 ML PRE-FILLED SYRINGE IVPUSH ONE ×2 (09:45→12:03)
[2020-02-09] MEDS: DIGOXIN 0.125 MG TABLET (FP) PO SCH (14:35)
[2020-02-09] MEDS: MULTIVITAMINS (DAILY MVI) TABLET (FP) PO SCH (14:35)
[2020-02-09] MEDS: DOCUSATE SODIUM 100 MG CAPSULE (FP) PO SCH ×2 (14:36→21:05)
[2020-02-09] MEDS: POLYETHYLENE GLYCOL 3350 119 GM BTL PO SCH (14:36)
[2020-02-09] MEDS: CLOPIDOGREL BISULFATE 75 MG TABLET (FP) PO SCH (14:36)
[2020-02-09] MEDS: FAMOTIDINE 20 MG TABLET PO SCH ×2 (14:36→21:07)
[2020-02-09] MEDS: ASPIRIN 81 MG CHEWABLE TABLETS PO SCH (14:36)
[2020-02-09] MEDS: sitaGLIPtin PHOSPHATE 50 MG TABLET PO SCH (14:36)
[2020-02-09] MEDS: COLLAGENASE CLOSTRIDIUM HIST. 30 GRAMS TUBE TP SCH (14:37)
--- NOTE | 2020-02-09 14:37 | PN ---
Progress Note (short form) - Note Progress Note: cc: gangrene s: no cp sob palps dizzy Current Medications Generic Name Dose Route Start Last Admin Trade Name Jimq PRN Reason Stop Dose Admin Aspirin 81 mg 02/06/20 10:00 02/08/20 09:49 Asa - PO 81 mg DAILY [facility] Administration Atorvastatin Calcium 20 mg 02/05/20 22:00 02/08/20 21:30 Lipitor - PO 20 mg HS HUGO Administration Carvedilol 3.125 mg 02/05/20 22:00 02/09/20 09:33 Coreg - PO 3.125 mg BID [facility]GO Administration Clopidogrel Bisulfate 75 mg 02/06/20 10:00 02/08/20 09:49 Plavix - PO 75 mg DAILY [facility] Administration Collagenase 1 applic 02/06/20 10:00 02/08/20 09:49 Santyl - TP 1 applic DAILY [facility] Administration Protocol Digoxin 0.125 mg 02/06/20 10:00 02/08/20 09:49 Lanoxin - PO 0.125 mg DAILY [facility] Administration Docusate Sodium 100 mg 02/06/20 11:15 02/08/20 21:30 Colace - PO 100 mg BID [facility]GO Administration Famotidine 20 mg 02/05/20 22:00 02/08/20 21:31 Pepcid - PO 20 mg BID [facility]GO Administration Fentanyl 50 mcg 02/05/20 18:06 02/05/20 17:40 Sublimaze Injection - IVPUSH 50 mcg [id number] PRN Administration PAIN-PACU ORDER X 4 DOSES ONLY Gabapentin 300 mg 02/05/20 22:00 02/09/20 06:07 Neurontin - PO Not Given TID HUGO Insulin Aspart 1 vial 02/05/20 22:00 02/09/20 06:19 Novolog Vial Sliding Scale - SQ Not Given ACHS [facility] Protocol Insulin Detemir 45 units 02/07/20 22:00 02/08/20 21:30 Levemir Vial SQ 45 units HS [facility] Administration Multivitamins/Minerals/Vitamin C 1 tab 02/06/20 10:00 02/08/20 09:49 Tab-A-Vit - PO 1 tab DAILY [facility] Administration Polyethylene Glycol 17 gm 02/06/20 11:15 02/08/20 09:49 Miralax (For Daily Use) - PO 17 gm DAILY [facility] Administration Quetiapine Fumarate 50 mg 02/05/20 22:00 02/08/20 21:31 Seroquel - PO 50 mg HS HUGO Administration Sitagliptin Phosphate 100 mg 02/06/20 10:00 02/08/20 09:49 Januvia - PO 100 mg DAILY [facility] Administration Vital Signs Period Temp Pulse Resp BP Sys/Leahy Pulse Ox Last 24 Hr 98.2 F-98.7 F 85-113 18-18 122-165/77-99 96-109 Constitutional: Yes: Well Nourished, No Distress Eyes: No: Sclera Icterus HENT: No: Nasal Congestion Neck: No: Decreased ROM Respiratory: Yes: CTA Bilaterally. No: Accessory Muscle Use, Rales, Wheezes Gastrointestinal: Yes: Normal Bowel Sounds. No: Distention, Hepatomegaly, Palpable Mass, Tenderness Cardiovascular: Yes: Regular Rate and Rhythm JVD: No Carotid Bruit: No PMI: Non-Displaced Heart Sounds: Yes: S1, S2. No: Gallop Murmur: No: Systolic Murmur, Diastolic Murmur Musculoskeletal: Yes: Other (No kyphosis) Edema: No Peripheral Pulses: 2+ Left Carotid, 2+ Right Carotid, 2+ Left Doralis Pedis, 2+ Right Dorsalis Pedis Integumentary: No: Jaundice Neurological: Yes: Alert. No: Seizure Psychiatric: No: Agitated Assessment/Plan echo 01/2020: normal LVEF, nl RV, nl valve function. CXR: ATX vs infiltrate R base, no effusions/congestion mibi 01/2020 mod sized area of inferolateral scar, no ischemia, EF 45% preop CV eval, PAD for LE bypass: -cannot evaluate for cardiac sx's due to his mental capacity -mult RFs for CAD/cardiomyopathy including DM, prior etoh abuse, age -recent echo unremarkable - mibi shows inferolateral scar, no ischemia - continue statin, plavix as medical management for likely underlying CAD -pt on plavix, unknown indication (PAD?)--mgmt perioperatively per vascular -abnormal CXR with atx vs infiltrate R base--tx and medical optimization per hospitalist -on digoxin for unclear indication, level ok here, continue - patient is at acceptable risk for LE bypass, no further cardiac testing prior to procedure DM: -per hospitalist HTN: -bp has been very labile here, this AM is controlled -cont present meds, observe trend HPL: -cont statin
--- NOTE | 2020-02-09 15:12 | PN ---
Physical Exam: SUBJECTIVE: Patient seen and examined. he is able to tell me his first and last name and that he is in [facility] because of his foot. He denies pain and is comfortable otherwise. OBJECTIVE: Patient is a 64 year old male with a significant past medical history of DM, schizophrenia, HTN, HLD, GERD, dementia, EtOH use disorder who had his righ knee great toe amputated ~ 1 month ago, presents with R 2nd digit gangrene. At [facility] pt underwent RLE angiogram which revealed right SFA occlusion. He is being followed by vascular surgery for fem-pop bypass. Pt being worked up by cards for clearance and had a stress test today. Vital Signs Period Temp Pulse Resp BP Sys/Leahy Pulse Ox Last 24 Hr 98.2 F-98.7 F 85-113 18-18 122-165/77-99 96-109 GENERAL: The patient is awake, alert, in no acute distress. HEAD: Normal with no signs of trauma. EYES: PERRL, extraocular movements intact, sclera anicteric, conjunctiva clear. No ptosis. ENT: Ears normal, nares patent, oropharynx clear without exudates NECK: Trachea midline, full range of motion, supple. LUNGS: Breath sounds equal HEART: Regular rate and rhythm ABDOMEN: Soft, nontender, nondistended, normoactive bowel sounds EXTREMITIES: right foot dressing, for right 2nd digit gangrene. wound not viewed as it was just wrapped in aguilar. NEUROLOGICAL: Normal speech, gait not observed. PSYCH: Normal mood, normal affect. Laboratory Results - last 24 hr 02/08/20 02/08/20 02/09/20 17:32 21:22 05:34 WBC RBC Hgb Hct MCV MCH MCHC RDW Plt Count MPV Absolute Neuts (auto) Neutrophils % Lymphocytes % Monocytes % Eosinophils % Basophils % Nucleated RBC % Sodium Potassium Chloride Carbon Dioxide Anion Gap BUN Creatinine Est GFR (CKD-EPI)AfAm Est GFR (CKD-EPI)NonAf POC Glucometer 246 173 159 Random Glucose Calcium Magnesium Total Bilirubin AST ALT Alkaline Phosphatase Troponin I Total Protein Albumin 02/09/20 02/09/20 02/09/20 06:59 06:59 10:30 WBC 8.7 RBC 3.47 L Hgb 9.2 L Hct 27.9 L MCV 80.2 MCH 26.5 MCHC 33.0 RDW 14.3 Plt Count 318 MPV 7.6 Absolute Neuts (auto) 6.4 Neutrophils % 73.1 Lymphocytes % 13.9 D Monocytes % 9.6 Eosinophils % 2.8 Basophils % 0.6 Nucleated RBC % 0 Sodium 137 Potassium 3.9 Chloride 106 Carbon Dioxide 23 Anion Gap 9 BUN 23.1 H Creatinine 1.4 H Est GFR (CKD-EPI)AfAm 61.97 Est GFR (CKD-EPI)NonAf 53.47 POC Glucometer Random Glucose 149 H Calcium 9.0 Magnesium 1.9 Total Bilirubin 0.4 AST 29 ALT 51 Alkaline Phosphatase 74 Troponin I < 0.02 Total Protein 6.9 Albumin 2.0 L 02/09/20 14:53 WBC RBC Hgb Hct MCV MCH MCHC RDW Plt Count MPV Absolute Neuts (auto) Neutrophils % Lymphocytes % Monocytes % Eosinophils % Basophils % Nucleated RBC % Sodium Potassium Chloride Carbon Dioxide Anion Gap BUN Creatinine Est GFR (CKD-EPI)AfAm Est GFR (CKD-EPI)NonAf POC Glucometer 220 Random Glucose Calcium Magnesium Total Bilirubin AST ALT Alkaline Phosphatase Troponin I Total Protein Albumin Active Medications Generic Name Dose Route Start Last Admin Trade Name Freq PRN Reason Stop Dose Admin Aspirin 81 mg 02/06/20 10:00 02/09/20 14:36 Asa - PO 81 mg DAILY HUGO Administration Atorvastatin Calcium 20 mg 02/05/20 22:00 02/08/20 21:30 Lipitor - PO 20 mg HS HUGO Administration Carvedilol 3.125 mg 02/05/20 22:00 02/09/20 09:33 Coreg - PO 3.125 mg BID HUGO Administration Clopidogrel Bisulfate 75 mg 02/06/20 10:00 02/09/20 14:36 Plavix - PO 75 mg DAILY HUGO Administration Collagenase 1 applic 02/06/20 10:00 02/09/20 14:37 Santyl - TP 1 applic DAILY HUGO Administration Protocol Digoxin 0.125 mg 02/06/20 10:00 02/09/20 14:35 Lanoxin - PO 0.125 mg DAILY HUGO Administration Docusate Sodium 100 mg 02/06/20 11:15 02/09/20 14:36 Colace - PO 100 mg BID HUGO Administration Famotidine 20 mg 02/05/20 22:00 02/09/20 14:36 Pepcid - PO 20 mg BID HUGO Administration Fentanyl 50 mcg 02/05/20 18:06 02/05/20 17:40 Sublimaze Injection - IVPUSH 50 mcg [id number] PRN Administration PAIN-PACU ORDER X 4 DOSES ONLY Gabapentin 300 mg 02/05/20 22:00 02/09/20 14:57 Neurontin - PO 300 mg TID HUGO Administration Insulin Aspart 1 vial 02/05/20 22:00 02/09/20 14:56 Novolog Vial Sliding Scale - SQ 4 units ACHS HUGO Administration Protocol Insulin Detemir 45 units 02/07/20 22:00 02/08/20 21:30 Levemir Vial SQ 45 units HS HUGO Administration Multivitamins/Minerals/Vitamin C 1 tab 02/06/20 10:00 02/09/20 14:35 Tab-A-Vit - PO 1 tab DAILY HUGO Administration Polyethylene Glycol 17 gm 02/06/20 11:15 02/09/20 14:36 Miralax (For Daily Use) - PO 17 gm DAILY HUGO Administration Quetiapine Fumarate 50 mg 02/05/20 22:00 02/08/20 21:31 Seroquel - PO 50 mg HS HUGO Administration Sitagliptin Phosphate 100 mg 02/06/20 10:00 02/09/20 14:36 Januvia - PO 100 mg DAILY HUGO Administration ASSESSMENT/PLAN: Problem List - Problems (1) Anemia Assessment/Plan: Follow-up anemia work-up and H&H. Hemoglobin is stable monitor prior to surgery pt needs active T and S prior to OR Code(s): D64.9 - ANEMIA, UNSPECIFIED (2) CKD (chronic kidney disease) Assessment/Plan: monitor kidney function trend intake/output and electrolytes Code(s): N18.9 - CHRONIC KIDNEY DISEASE, UNSPECIFIED (3) Congestive heart failure Assessment/Plan: Patient has normal ejection fraction, continue coreg, and digoxin, Stress test pending as part of pre-op clearance Code(s): I50.9 - HEART FAILURE, UNSPECIFIED Qualifiers: Heart failure type: unspecified (4) Diabetic foot infection Assessment/Plan: Patient has peripheral artery disease with right foot cellulitis/osteomyelitis status post right great amputation on IV antibiotic Vancomycin/invanz Elevated ESR and CRP due to osteomyelitis Follow-up ID and vascular recommendations, patient is s/P RLE angiogram on 02/04 Right SFA is occluded. Pt requires a fem-pop above knee bypass Needs cardiology clearance - cardio eval appreciated and noted -- stress test completed today neurontin TID continue lipitor collagenase dressing to RLE Code(s): E11.628 - TYPE 2 DIABETES MELLITUS WITH OTHER SKIN COMPLICATIONS; L08.9 - LOCAL INFECTION OF THE SKIN AND SUBCUTANEOUS TISSUE, UNSP (5) Uncontrolled type 2 diabetes mellitus Code(s): E11.65 - TYPE 2 DIABETES MELLITUS WITH HYPERGLYCEMIA (6) DVT prophylaxis Assessment/Plan: heparin bid Code(s): Z29.9 - ENCOUNTER FOR PROPHYLACTIC MEASURES, UNSPECIFIED Visit type - Emergency Visit Emergency Visit: Yes ED Registration Date: 02/03/20 Care time: The patient presented to the Emergency Department on the above date and was hospitalized for further evaluation of their emergent condition. - New Patient This patient is new to me today: Yes Date on this admission: 02/09/20 - Critical Care Critical Care patient: No - Discharge Referral Referred to [facility] Med P.C.: No
[2020-02-09] MEDS ORDERED: QUEtiapine FUMARATE 25 MG TABLET ONE (21:01)
[2020-02-09] MEDS: HEPARIN NA (PORCINE) 5,000 UNITS/ML 1ML VIAL SQ SCH (21:06)
[2020-02-09] MEDS: ATORVASTATIN CA 20 MG TABLET (FP) PO SCH (21:06)
[2020-02-09] MEDS: INSULIN (LEVEMIR) 100 UNITS/ML UNITS SQ SCH (21:06)
[2020-02-09] MEDS: QUEtiapine FUMARATE 50 MG TABLET PO SCH (21:07)
[2020-02-10] MEDS: GABAPENTIN 300 MG CAPSULE PO SCH ×3 (06:23→22:35)
[2020-02-10] MEDS: INSULIN SLIDING SCALE (NOVOLOG) 1 VIAL SQ SCH ×4 (06:23→22:34)
[2020-02-10] MEDS: DIGOXIN 0.125 MG TABLET (FP) PO SCH (10:10)
[2020-02-10] MEDS: DOCUSATE SODIUM 100 MG CAPSULE (FP) PO SCH ×2 (10:10→22:35)
[2020-02-10] MEDS: ASPIRIN 81 MG CHEWABLE TABLETS PO SCH (10:10)
[2020-02-10] MEDS: MULTIVITAMINS (DAILY MVI) TABLET (FP) PO SCH (10:12)
[2020-02-10] MEDS: CARVEDILOL 3.125 MG TABLET (FP) PO SCH ×2 (10:13→22:35)
[2020-02-10] MEDS: FAMOTIDINE 20 MG TABLET PO SCH ×2 (10:13→22:35)
[2020-02-10] MEDS: sitaGLIPtin PHOSPHATE 50 MG TABLET PO SCH (10:13)
[2020-02-10] MEDS: HEPARIN NA (PORCINE) 5,000 UNITS/ML 1ML VIAL SQ SCH ×2 (10:13→22:35)
[2020-02-10] MEDS: CLOPIDOGREL BISULFATE 75 MG TABLET (FP) PO SCH (10:13)
--- NOTE | 2020-02-10 11:36 | PN ---
Progress Note (short form) - Note Progress Note: VASCULAR SURGERY Scheduled for RLE fem-pop 02/12/20 Covid negative. Cardiology cleared patient for procedure. Medical optimization for impending surgery
[2020-02-10] MEDS: POLYETHYLENE GLYCOL 3350 119 GM BTL PO SCH (12:16)
--- NOTE | 2020-02-10 12:30 | PN ---
Progress Note (short form) - Note Progress Note: cc: gangrene s: no cp sob palps dizzy Current Medications Generic Name Dose Route Start Last Admin Trade Name Freq PRN Reason Stop Dose Admin Aspirin 81 mg 02/06/20 10:00 02/10/20 10:10 Asa - PO 81 mg DAILY HUGO Administration Atorvastatin Calcium 20 mg 02/05/20 22:00 02/09/20 21:06 Lipitor - PO 20 mg HS HUGO Administration Carvedilol 3.125 mg 02/05/20 22:00 02/10/20 10:13 Coreg - PO 3.125 mg BID HUGO Administration Clopidogrel Bisulfate 75 mg 02/06/20 10:00 02/10/20 10:13 Plavix - PO 75 mg DAILY HUGO Administration Collagenase 1 applic 02/06/20 10:00 02/09/20 14:37 Santyl - TP 1 applic DAILY HUGO Administration Protocol Digoxin 0.125 mg 02/06/20 10:00 02/10/20 10:10 Lanoxin - PO 0.125 mg DAILY HUGO Administration Docusate Sodium 100 mg 02/06/20 11:15 02/10/20 10:10 Colace - PO 100 mg BID HUGO Administration Famotidine 20 mg 02/05/20 22:00 02/10/20 10:13 Pepcid - PO 20 mg BID HUGO Administration Fentanyl 50 mcg 02/05/20 18:06 02/05/20 17:40 Sublimaze Injection - IVPUSH 50 mcg [id number] PRN Administration PAIN-PACU ORDER X 4 DOSES ONLY Gabapentin 300 mg 02/05/20 22:00 02/10/20 06:23 Neurontin - PO 300 mg TID HUGO Administration Heparin Sodium (Porcine) 5,000 unit 02/09/20 22:00 02/10/20 10:13 Heparin - SQ 5,000 unit BID HUGO Administration Insulin Aspart 1 vial 02/09/20 16:30 02/10/20 12:20 Novolog Vial Sliding Scale - SQ 4 unit ACHS [facility] Administration Protocol Insulin Detemir 45 units 02/07/20 22:00 02/09/20 21:06 Levemir Vial SQ 45 units HS HUGO Administration Multivitamins/Minerals/Vitamin C 1 tab 02/06/20 10:00 02/10/20 10:12 Tab-A-Vit - PO 1 tab DAILY HUGO Administration Polyethylene Glycol 17 gm 02/06/20 11:15 02/10/20 12:16 Miralax (For Daily Use) - PO 17 gm DAILY HUGO Administration Quetiapine Fumarate 50 mg 02/05/20 22:00 02/09/20 21:07 Seroquel - PO 50 mg HS HUGO Administration Sitagliptin Phosphate 100 mg 02/06/20 10:00 02/10/20 10:13 Januvia - PO 100 mg DAILY HUGO Administration Vital Signs Period Temp Pulse Resp BP Sys/Leahy Pulse Ox Last 24 Hr 97.7 F-98.5 F 83-94 18-18 123-154/72-81 96-98 Constitutional: Yes: Well Nourished, No Distress Eyes: No: Sclera Icterus HENT: No: Nasal Congestion Neck: No: Decreased ROM Respiratory: Yes: CTA Bilaterally. No: Accessory Muscle Use, Rales, Wheezes Gastrointestinal: Yes: Normal Bowel Sounds. No: Distention, Hepatomegaly, Palpable Mass, Tenderness Cardiovascular: Yes: Regular Rate and Rhythm JVD: No Carotid Bruit: No PMI: Non-Displaced Heart Sounds: Yes: S1, S2. No: Gallop Murmur: No: Systolic Murmur, Diastolic Murmur Musculoskeletal: Yes: Other (No kyphosis) Edema: No Peripheral Pulses: 2+ Left Carotid, 2+ Right Carotid, 2+ Left Doralis Pedis, 2+ Right Dorsalis Pedis Integumentary: No: Jaundice Neurological: Yes: Alert. No: Seizure Psychiatric: No: Agitated Assessment/Plan echo 01/2020: normal LVEF, nl RV, nl valve function. CXR: ATX vs infiltrate R base, no effusions/congestion mibi 01/2020 mod sized area of inferolateral scar, no ischemia, EF 45% preop CV eval, PAD for LE bypass: -cannot evaluate for cardiac sx's due to his mental capacity -mult RFs for CAD/cardiomyopathy including DM, prior etoh abuse, age -recent echo unremarkable - mibi shows inferolateral scar, no ischemia - continue statin, plavix as medical management for likely underlying CAD -pt on plavix, unknown indication (PAD?)--mgmt perioperatively per vascular -abnormal CXR with atx vs infiltrate R base--tx and medical optimization per hospitalist -on digoxin for unclear indication, level ok here, continue - patient is at acceptable risk for LE bypass, no further cardiac testing prior to procedure DM: -per hospitalist HTN: -bp has been very labile here, this AM is controlled -cont present meds, observe trend HPL: -cont statin
[2020-02-10 13:22] LABS: BASO % 0.5 % (0-2.0); EOS % 2.5 % (0-4.5); HEMATOCRIT 29.6 % (35.4-49); HEMOGLOBIN 9.8 GM/dL (11.7-16.9); LYMPH % 12.4 % (8-40); MCH 26.9 pg (25.7-33.7); MCHC 33.1 g/dl (32.0-35.9); MEAN CELL VOLUME 81.3 fl (80-96); MEAN PLT VOLUME 7.6 fl (7.5-11.1); NEUT % 76.6 % (42.8-82.8); PLATELET COUNT 369 K/MM3 (134-434); RBC 3.64 M/mm3 (4.00-5.60); WHITE BLOOD COUNT 9.2 K/mm3 (4.0-10.0)
[2020-02-10 13:37] LABS: INR 1.19 (0.83-1.09); PROTHROMBIN TIME (PATIENT) 14.1 SEC (9.7-13.0)
[2020-02-10 13:49] LABS: ALBUMIN 2.3 g/dl (3.4-5.0); BILIRUBIN,TOTAL 0.2 mg/dL (0.2-1); BLOOD UREA NITROGEN 23.6 mg/dL (7-18); CALCIUM 9.2 mg/dL (8.5-10.1); CREATININE 1.4 mg/dL (0.55-1.3); POTASSIUM 4.2 mmol/L (3.5-5.1); TOT PROT 7.6 g/dl (6.4-8.2)
[2020-02-10] MEDS: COLLAGENASE CLOSTRIDIUM HIST. 30 GRAMS TUBE TP SCH (15:11)
--- NOTE | 2020-02-10 16:03 | PN ---
Physical Exam: SUBJECTIVE: Patient seen and examined at the bedside. comfortable and offers no complaints. OBJECTIVE: Patient is a 64 year old male with a significant past medical history of DM, schizophrenia, HTN, HLD, GERD, dementia, EtOH use disorder who had his righ knee great toe amputated ~ 1 month ago, presents with R 2nd digit gangrene. At [facility] pt underwent RLE angiogram which revealed right SFA occlusion. He is being followed by vascular surgery for fem-pop bypass. Patient cleared by cardiology for right lower ext fem pop scheduled for 02/12/2020. --------- Period Temp Pulse Resp BP Sys/Leahy Pulse Ox Last 24 Hr 97.7 F-98.5 F 83-94 18-18 132-154/73-81 96-99 GENERAL: The patient is awake, alert, in no acute distress. HEAD: Normal with no signs of trauma. EYES: PERRL, extraocular movements intact, sclera anicteric, conjunctiva clear. No ptosis. ENT: Ears normal, nares patent, oropharynx clear without exudates NECK: Trachea midline, full range of motion, supple. LUNGS: Breath sounds equal HEART: Regular rate and rhythm ABDOMEN: Soft, nontender, nondistended, normoactive bowel sounds EXTREMITIES: right foot dressing, for right 2nd digit gangrene. wound not viewed as it was just wrapped in aguilar. NEUROLOGICAL: Normal speech, gait not observed. PSYCH: Normal mood, normal affect. Laboratory Results - last 24 hr 02/09/20 02/09/20 02/10/20 17:38 20:57 06:14 WBC RBC Hgb Hct MCV MCH MCHC RDW Plt Count MPV Absolute Neuts (auto) Neutrophils % Lymphocytes % Monocytes % Eosinophils % Basophils % Nucleated RBC % PT with INR INR Sodium Potassium Chloride Carbon Dioxide Anion Gap BUN Creatinine Est GFR (CKD-EPI)AfAm Est GFR (CKD-EPI)NonAf POC Glucometer 134 250 166 Random Glucose Calcium Magnesium Total Bilirubin AST ALT Alkaline Phosphatase Total Protein Albumin Blood Type Antibody Screen 02/10/20 02/10/20 02/10/20 12:19 12:38 12:38 WBC 9.2 RBC 3.64 L Hgb 9.8 L Hct 29.6 L MCV 81.3 MCH 26.9 MCHC 33.1 RDW 14.0 Plt Count 369 MPV 7.6 Absolute Neuts (auto) 7.0 Neutrophils % 76.6 Lymphocytes % 12.4 Monocytes % 8.0 Eosinophils % 2.5 Basophils % 0.5 Nucleated RBC % 0 PT with INR INR Sodium 139 Potassium 4.2 Chloride 106 Carbon Dioxide 26 Anion Gap 7 L BUN 23.6 H Creatinine 1.4 H Est GFR (CKD-EPI)AfAm 61.97 Est GFR (CKD-EPI)NonAf 53.47 POC Glucometer 198 Random Glucose 202 H Calcium 9.2 Magnesium 2.0 Total Bilirubin 0.2 AST 25 ALT 43 Alkaline Phosphatase 76 Total Protein 7.6 Albumin 2.3 L Blood Type Antibody Screen 02/10/20 02/10/20 12:38 12:38 WBC RBC Hgb Hct MCV MCH MCHC RDW Plt Count MPV Absolute Neuts (auto) Neutrophils % Lymphocytes % Monocytes % Eosinophils % Basophils % Nucleated RBC % PT with INR 14.10 H INR 1.19 H Sodium Potassium Chloride Carbon Dioxide Anion Gap BUN Creatinine Est GFR (CKD-EPI)AfAm Est GFR (CKD-EPI)NonAf POC Glucometer Random Glucose Calcium Magnesium Total Bilirubin AST ALT Alkaline Phosphatase Total Protein Albumin Blood Type O POSITIVE Antibody Screen Negative Active Medications Generic Name Dose Route Start Last Admin Trade Name Freq PRN Reason Stop Dose Admin Aspirin 81 mg 02/06/20 10:00 02/10/20 10:10 Asa - PO 81 mg DAILY HUGO Administration Atorvastatin Calcium 20 mg 02/05/20 22:00 02/09/20 21:06 Lipitor - PO 20 mg HS HUGO Administration Carvedilol 3.125 mg 02/05/20 22:00 02/10/20 10:13 Coreg - PO 3.125 mg BID HUGO Administration Clopidogrel Bisulfate 75 mg 02/06/20 10:00 02/10/20 10:13 Plavix - PO 75 mg DAILY HUGO Administration Collagenase 1 applic 02/06/20 10:00 02/10/20 15:11 Santyl - TP 1 applic DAILY HUGO Administration Protocol Digoxin 0.125 mg 02/06/20 10:00 02/10/20 10:10 Lanoxin - PO 0.125 mg DAILY HUGO Administration Docusate Sodium 100 mg 02/06/20 11:15 02/10/20 10:10 Colace - PO 100 mg BID HUGO Administration Famotidine 20 mg 02/05/20 22:00 02/10/20 10:13 Pepcid - PO 20 mg BID HUGO Administration Fentanyl 50 mcg 02/05/20 18:06 02/05/20 17:40 Sublimaze Injection - IVPUSH 50 mcg [id number] PRN Administration PAIN-PACU ORDER X 4 DOSES ONLY Gabapentin 300 mg 02/05/20 22:00 02/10/20 15:11 Neurontin - PO 300 mg TID HUGO Administration Heparin Sodium (Porcine) 5,000 unit 02/09/20 22:00 02/10/20 10:13 Heparin - SQ 5,000 unit BID HUGO Administration Insulin Aspart 1 vial 02/09/20 16:30 02/10/20 12:20 Novolog Vial Sliding Scale - SQ 4 unit ACHS HUGO Administration Protocol Insulin Detemir 45 units 02/07/20 22:00 02/09/20 21:06 Levemir Vial SQ 45 units HS HUGO Administration Multivitamins/Minerals/Vitamin C 1 tab 02/06/20 10:00 02/10/20 10:12 Tab-A-Vit - PO 1 tab DAILY HUGO Administration Polyethylene Glycol 17 gm 02/06/20 11:15 02/10/20 12:16 Miralax (For Daily Use) - PO 17 gm DAILY HUGO Administration Quetiapine Fumarate 50 mg 02/05/20 22:00 02/09/20 21:07 Seroquel - PO 50 mg HS HUGO Administration Sitagliptin Phosphate 100 mg 02/06/20 10:00 02/10/20 10:13 Januvia - PO 100 mg DAILY HUGO Administration ASSESSMENT/PLAN: Problem List - Problems (1) Anemia Assessment/Plan: Anemia of chronic disease Hemoglobin is stable monitor CBC daily pt needs active T and S prior to OR Code(s): D64.9 - ANEMIA, UNSPECIFIED (2) CKD (chronic kidney disease) Assessment/Plan: monitor kidney function trend intake/output and electrolytes Code(s): N18.9 - CHRONIC KIDNEY DISEASE, UNSPECIFIED (3) Congestive heart failure Assessment/Plan: Patient has normal ejection fraction, continue coreg, and digoxin, Stress test completed on 02/09/2020 Code(s): I50.9 - HEART FAILURE, UNSPECIFIED Qualifiers: Heart failure type: unspecified (4) Diabetic foot infection Assessment/Plan: Patient has peripheral artery disease with right foot cellulitis/osteomyelitis status post right great amputation on IV antibiotic antibiotics discontinued by ID. patient is s/P RLE angiogram on 02/04 Right SFA is occluded. Pt requires a fem-pop above knee bypass, scheduled for 02/12/2020 cleared by cardiology for bypass surgery neurontin TID continue lipitor collagenase dressing to RLE Code(s): E11.628 - TYPE 2 DIABETES MELLITUS WITH OTHER SKIN COMPLICATIONS; L08.9 - LOCAL INFECTION OF THE SKIN AND SUBCUTANEOUS TISSUE, UNSP (5) Uncontrolled type 2 diabetes mellitus Assessment/Plan: BGMs still elevated, goal is to maintain fasting bgms<180 tightened sliding scale insulin on levemir 45 units at hs Code(s): E11.65 - TYPE 2 DIABETES MELLITUS WITH HYPERGLYCEMIA (6) DVT prophylaxis Assessment/Plan: heparin bid Code(s): Z29.9 - ENCOUNTER FOR PROPHYLACTIC MEASURES, UNSPECIFIED Visit type - Emergency Visit Emergency Visit: Yes ED Registration Date: 02/03/20 Care time: The patient presented to the Emergency Department on the above date and was hospitalized for further evaluation of their emergent condition. - New Patient This patient is new to me today: No - Critical Care Critical Care patient: No - Discharge Referral Referred to [facility] Med P.C.: No
[2020-02-10 16:21] VITALS: BMI 20.6
[2020-02-10] MEDS ORDERED: QUEtiapine FUMARATE 25 MG TABLET ONE (22:22)
[2020-02-10] MEDS: INSULIN (LEVEMIR) 100 UNITS/ML UNITS SQ SCH (22:35)
[2020-02-10] MEDS: ATORVASTATIN CA 20 MG TABLET (FP) PO SCH (22:35)
[2020-02-10] MEDS: QUEtiapine FUMARATE 50 MG TABLET PO SCH (22:35)
[2020-02-11] MEDS: INSULIN SLIDING SCALE (NOVOLOG) 1 VIAL SQ SCH ×4 (06:40→21:56)
[2020-02-11] MEDS: GABAPENTIN 300 MG CAPSULE PO SCH ×3 (06:41→21:55)
[2020-02-11] MEDS: AMINO ACIDS/PROTEIN HYDROLYS 30 ML LIQUID.PKT PO SCH (10:19)
[2020-02-11] MEDS: DOCUSATE SODIUM 100 MG CAPSULE (FP) PO SCH ×2 (10:20→21:55)
[2020-02-11] MEDS: ASPIRIN 81 MG CHEWABLE TABLETS PO SCH (10:20)
[2020-02-11] MEDS: FAMOTIDINE 20 MG TABLET PO SCH ×2 (10:20→21:55)
[2020-02-11] MEDS: DIGOXIN 0.125 MG TABLET (FP) PO SCH (10:20)
[2020-02-11] MEDS: sitaGLIPtin PHOSPHATE 50 MG TABLET PO SCH (10:20)
[2020-02-11] MEDS: CARVEDILOL 3.125 MG TABLET (FP) PO SCH ×2 (10:20→21:55)
[2020-02-11] MEDS: CLOPIDOGREL BISULFATE 75 MG TABLET (FP) PO SCH (10:20)
[2020-02-11] MEDS: HEPARIN NA (PORCINE) 5,000 UNITS/ML 1ML VIAL SQ SCH ×2 (10:21→21:57)
[2020-02-11] MEDS: COLLAGENASE CLOSTRIDIUM HIST. 30 GRAMS TUBE TP SCH (10:21)
[2020-02-11] MEDS: MULTIVITAMINS (DAILY MVI) TABLET (FP) PO SCH (10:21)
--- NOTE | 2020-02-11 12:07 | PN ---
Progress Note (short form) - Note Progress Note: s: no cp sob palps dizzy Current Medications Generic Name Dose Route Start Last Admin Trade Name Freq PRN Reason Stop Dose Admin Amino Acids 30 ml 02/11/20 10:00 02/11/20 10:19 Prosource No Carb Liquid Pkt PO 30 ml DAILY HUGO Administration Aspirin 81 mg 02/06/20 10:00 02/11/20 10:20 Asa - PO 81 mg DAILY HUGO Administration Atorvastatin Calcium 20 mg 02/05/20 22:00 02/10/20 22:35 Lipitor - PO 20 mg HS HUGO Administration Carvedilol 3.125 mg 02/05/20 22:00 02/11/20 10:20 Coreg - PO 3.125 mg BID HUGO Administration Clopidogrel Bisulfate 75 mg 02/06/20 10:00 02/11/20 10:20 Plavix - PO 75 mg DAILY HUGO Administration Collagenase 1 applic 02/06/20 10:00 02/11/20 10:21 Santyl - TP 1 applic DAILY HUGO Administration Protocol Digoxin 0.125 mg 02/06/20 10:00 02/11/20 10:20 Lanoxin - PO 0.125 mg DAILY HUGO Administration Docusate Sodium 100 mg 02/06/20 11:15 02/11/20 10:20 Colace - PO 100 mg BID HUGO Administration Famotidine 20 mg 02/05/20 22:00 02/11/20 10:20 Pepcid - PO 20 mg BID HUGO Administration Fentanyl 50 mcg 02/05/20 18:06 02/05/20 17:40 Sublimaze Injection - IVPUSH 50 mcg [id number] PRN Administration PAIN-PACU ORDER X 4 DOSES ONLY Gabapentin 300 mg 02/05/20 22:00 02/11/20 06:41 Neurontin - PO 300 mg TID HUGO Administration Heparin Sodium (Porcine) 5,000 unit 02/09/20 22:00 02/11/20 10:21 Heparin - SQ 5,000 unit BID HUGO Administration Insulin Aspart 1 vial 02/10/20 16:30 02/11/20 06:40 Novolog Vial Sliding Scale - SQ Not Given ACHS [facility] Protocol Insulin Detemir 45 units 02/07/20 22:00 02/10/20 22:35 Levemir Vial SQ 45 units HS HUGO Administration Multivitamins/Minerals/Vitamin C 1 tab 02/06/20 10:00 02/11/20 10:21 Tab-A-Vit - PO 1 tab DAILY HUGO Administration Oxycodone HCl 5 mg 02/11/20 12:05 Roxicodone - PO Q6H PRN PAIN LEVEL 6-10 Polyethylene Glycol 17 gm 02/06/20 11:15 02/10/20 12:16 Miralax (For Daily Use) - PO 17 gm DAILY HUGO Administration Quetiapine Fumarate 50 mg 02/05/20 22:00 02/10/20 22:35 Seroquel - PO 50 mg HS HUGO Administration Sitagliptin Phosphate 100 mg 02/06/20 10:00 02/11/20 10:20 Januvia - PO 100 mg DAILY HUGO Administration Vital Signs Period Temp Pulse Resp BP Sys/Leahy Pulse Ox Last 24 Hr 97.9 F-98.9 F 86-98 16-18 135-171/51-88 96-100 Constitutional: Yes: Well Nourished, No Distress Eyes: No: Sclera Icterus HENT: No: Nasal Congestion Neck: No: Decreased ROM Respiratory: Yes: CTA Bilaterally. No: Accessory Muscle Use, Rales, Wheezes Gastrointestinal: Yes: Normal Bowel Sounds. No: Distention, Hepatomegaly, Palpable Mass, Tenderness Cardiovascular: Yes: Regular Rate and Rhythm JVD: No Carotid Bruit: No PMI: Non-Displaced Heart Sounds: Yes: S1, S2. No: Gallop Murmur: No: Systolic Murmur, Diastolic Murmur Musculoskeletal: Yes: Other (No kyphosis) Edema: No Peripheral Pulses: 2+ Left Carotid, 2+ Right Carotid, 2+ Left Doralis Pedis, 2+ Right Dorsalis Pedis Integumentary: No: Jaundice Neurological: Yes: Alert. No: Seizure Psychiatric: No: Agitated CBC, BMP 02/10/20 12:38 02/10/20 12:38 Assessment/Plan echo 01/2020: normal LVEF, nl RV, nl valve function. CXR: ATX vs infiltrate R base, no effusions/congestion mibi 01/2020 mod sized area of inferolateral scar, no ischemia, EF 45% preop CV eval, PAD for LE bypass: -cannot evaluate for cardiac sx's due to his mental capacity -mult RFs for CAD/cardiomyopathy including DM, prior etoh abuse, age -recent echo unremarkable - mibi shows inferolateral scar, no ischemia - continue statin, plavix as medical management for likely underlying CAD -pt on plavix, unknown indication (PAD?)--mgmt perioperatively per vascular -abnormal CXR with atx vs infiltrate R base--tx and medical optimization per hospitalist -on digoxin for unclear indication, level ok here, continue - patient is at acceptable risk for LE bypass, no further cardiac testing prior to procedure DM: -per hospitalist HTN: -bp has been very labile here, this AM is controlled -cont present meds, observe trend HPL: -cont statin
[2020-02-11] MEDS ORDERED: INSULIN (NOVOLOG) ASPART 100 UNITS/ML 10ML VIAL ONE (12:29)
[2020-02-11] MEDS: POLYETHYLENE GLYCOL 3350 119 GM BTL PO SCH (12:30)
--- NOTE | 2020-02-11 14:37 | SPA.PREOP ---
- PRE-OP NOTE Dx: PAD Planned Procedure: RLE bypass Surgeon: Dr Pineda Last Vital Signs Temp Pulse Resp BP Pulse Ox 98.8 F 89 16 154/88 96 02/11/20 10:42 02/11/20 10:42 02/11/20 10:42 02/11/20 10:42 02/11/20 10:42 Lab Results WBC 9.2 K/mm3 (4.0-10.0) 02/10/20 12:38 RBC 3.64 M/mm3 (4.00-5.60) L 02/10/20 12:38 Hgb 9.8 GM/dL (11.7-16.9) L 02/10/20 12:38 Hct 29.6 % (35.4-49) L 02/10/20 12:38 MCV 81.3 fl (80-96) 02/10/20 12:38 MCHC 33.1 g/dl (32.0-35.9) 02/10/20 12:38 RDW 14.0 % (11.9-15.9) 02/10/20 12:38 Plt Count 369 K/MM3 (134-434) 02/10/20 12:38 INR 1.19 (0.83-1.09) H 02/10/20 12:38 Sodium 139 mmol/L (136-145) 02/10/20 12:38 Potassium 4.2 mmol/L (3.5-5.1) 02/10/20 12:38 Chloride 106 mmol/L (98-107) 02/10/20 12:38 Carbon Dioxide 26 mmol/L (21-32) 02/10/20 12:38 Anion Gap 7 MMOL/L (8-16) L 02/10/20 12:38 BUN 23.6 mg/dL (7-18) H 02/10/20 12:38 Creatinine 1.4 mg/dL (0.55-1.3) H 02/10/20 12:38 Random Glucose 202 mg/dL (74-106) H 02/10/20 12:38 Calcium 9.2 mg/dL (8.5-10.1) 02/10/20 12:38 Blood Type O POSITIVE 02/10/20 12:38 Antibody Screen Negative 02/10/20 12:38 - IMAGING Chest X-ray: Report Reviewed (cxr 02/07) EKG: Report Reviewed (ekg 02/02) Other: Other (stress test 02/08) - ASSESSMENT/PLAN 1. Make NPO after midnight except po meds 2. GI/DVT PPX 3. Medical optimization / cleared by cardiology 4. Consent to be obtained by surgeon after risks, benefits and alternatives discussed with patient and or Health Care Proxy.
[2020-02-11] MEDS: oxyCODONE HCL 5 MG TABLET PO PRN ×2 (15:48→21:55)
[2020-02-11 16:18] LABS: BASO % 0.6 % (0-2.0); EOS % 3.6 % (0-4.5); HEMATOCRIT 27.9 % (35.4-49); HEMOGLOBIN 9.2 GM/dL (11.7-16.9); LYMPH % 14.7 % (8-40); MCH 26.8 pg (25.7-33.7); MCHC 32.9 g/dl (32.0-35.9); MEAN CELL VOLUME 81.4 fl (80-96); MEAN PLT VOLUME 7.7 fl (7.5-11.1); MONO % 7.9 % (3.8-10.2); NEUT % 73.2 % (42.8-82.8); PLATELET COUNT 356 K/MM3 (134-434); RBC 3.42 M/mm3 (4.00-5.60); WHITE BLOOD COUNT 7.8 K/mm3 (4.0-10.0)
--- NOTE | 2020-02-11 16:19 | PN ---
Physical Exam: SUBJECTIVE: Patient seen and examined at the bedside. He is verbalizing right foot pain today. OBJECTIVE: Patient is a 64 year old male with a significant past medical history of DM, schizophrenia, HTN, HLD, GERD, dementia, EtOH use disorder who had his right knee great toe amputated apx 1 month ago, presents to the ED on 02/03/2020 with right 2nd digit gangrene. At [facility] pt underwent RLE angiogram which revealed right SFA occlusion. He is being followed by vascular surgery and is scheduled for a fem-pop bypass. Patient cleared by cardiology for right lower ext fem pop scheduled for 02/12/2020. He will be NPO at midnight. Vital Signs Period Temp Pulse Resp BP Sys/Leahy Pulse Ox Last 24 Hr 98.2 F-98.9 F 80-98 16-18 145-178/51-88 96-100 GENERAL: The patient is awake, alert, in no acute distress. HEAD: Normal with no signs of trauma. EYES: PERRL, extraocular movements intact, sclera anicteric, conjunctiva clear. No ptosis. ENT: Ears normal, nares patent, oropharynx clear without exudates NECK: Trachea midline, full range of motion, supple. LUNGS: Breath sounds equal HEART: Regular rate and rhythm ABDOMEN: Soft, nontender, nondistended, normoactive bowel sounds EXTREMITIES: right foot dressing, for right 2nd digit gangrene. wound not viewed as it was just wrapped in aguilar. NEUROLOGICAL: Normal speech, gait not observed. PSYCH: Normal mood, normal affect. Laboratory Results - last 24 hr 02/10/20 02/10/20 02/10/20 10:35 12:38 17:20 POC Glucometer 191 COVID-19 (LESLIE) Not detected Crossmatch See Detail 02/10/20 02/11/20 02/11/20 22:33 06:13 11:39 POC Glucometer 189 136 203 COVID-19 (LESLIE) Crossmatch Active Medications Generic Name Dose Route Start Last Admin Trade Name Freq PRN Reason Stop Dose Admin Amino Acids 30 ml 02/11/20 10:00 02/11/20 10:19 Prosource No Carb Liquid Pkt PO 30 ml DAILY HUGO Administration Aspirin 81 mg 02/06/20 10:00 02/11/20 10:20 Asa - PO 81 mg DAILY HUGO Administration Atorvastatin Calcium 20 mg 02/05/20 22:00 02/10/20 22:35 Lipitor - PO 20 mg HS HUGO Administration Carvedilol 3.125 mg 02/05/20 22:00 02/11/20 10:20 Coreg - PO 3.125 mg BID HUGO Administration Clopidogrel Bisulfate 75 mg 02/06/20 10:00 02/11/20 10:20 Plavix - PO 75 mg DAILY HUGO Administration Collagenase 1 applic 02/06/20 10:00 02/11/20 10:21 Santyl - TP 1 applic DAILY [facility] Administration Protocol Digoxin 0.125 mg 02/06/20 10:00 02/11/20 10:20 Lanoxin - PO 0.125 mg DAILY HUGO Administration Docusate Sodium 100 mg 02/06/20 11:15 02/11/20 10:20 Colace - PO 100 mg BID HUGO Administration Famotidine 20 mg 02/05/20 22:00 02/11/20 10:20 Pepcid - PO 20 mg BID HUGO Administration Fentanyl 50 mcg 02/05/20 18:06 02/05/20 17:40 Sublimaze Injection - IVPUSH 50 mcg [id number] PRN Administration PAIN-PACU ORDER X 4 DOSES ONLY Gabapentin 300 mg 02/05/20 22:00 02/11/20 15:49 Neurontin - PO 300 mg TID HUGO Administration Heparin Sodium (Porcine) 5,000 unit 02/09/20 22:00 02/11/20 10:21 Heparin - SQ 5,000 unit BID HUGO Administration Insulin Aspart 1 vial 02/10/20 16:30 02/11/20 12:34 Novolog Vial Sliding Scale - SQ 8 units ACHS [facility] Administration Protocol Insulin Detemir 45 units 02/07/20 22:00 02/10/20 22:35 Levemir Vial SQ 45 units HS [facility] Administration Multivitamins/Minerals/Vitamin C 1 tab 02/06/20 10:00 02/11/20 10:21 Tab-A-Vit - PO 1 tab DAILY [facility] Administration Oxycodone HCl 5 mg 02/11/20 12:05 02/11/20 15:48 Roxicodone - PO 5 mg Q6H PRN Administration PAIN LEVEL 6-10 Polyethylene Glycol 17 gm 02/06/20 11:15 02/11/20 12:30 Miralax (For Daily Use) - PO Not Given DAILY HUGO Quetiapine Fumarate 50 mg 02/05/20 22:00 02/10/20 22:35 Seroquel - PO 50 mg HS HUGO Administration Sitagliptin Phosphate 100 mg 02/06/20 10:00 02/11/20 10:20 Januvia - PO 100 mg DAILY HUGO Administration ASSESSMENT/PLAN: Problem List - Problems (1) Diabetic foot infection Assessment/Plan: Patient has peripheral artery disease with right foot cellulitis/osteomyelitis status post right great amputation on IV antibiotic antibiotics discontinued by ID. patient is s/P RLE angiogram on 02/04 Right SFA is occluded. Pt requires a fem-pop above knee bypass, scheduled for 02/12/2020 cleared by cardiology for bypass surgery neurontin TID continue lipitor collagenase dressing to RLE Code(s): E11.628 - TYPE 2 DIABETES MELLITUS WITH OTHER SKIN COMPLICATIONS; L08.9 - LOCAL INFECTION OF THE SKIN AND SUBCUTANEOUS TISSUE, UNSP (2) Anemia Assessment/Plan: Anemia of chronic disease Hemoglobin is stable monitor CBC daily type and screen completed repeat cbc prior to surgery Code(s): D64.9 - ANEMIA, UNSPECIFIED (3) CKD (chronic kidney disease) Assessment/Plan: monitor kidney function trend intake/output and electrolytes Code(s): N18.9 - CHRONIC KIDNEY DISEASE, UNSPECIFIED (4) Congestive heart failure Assessment/Plan: Patient has normal ejection fraction, continue coreg, and digoxin, Stress test completed on 02/09/2020 Code(s): I50.9 - HEART FAILURE, UNSPECIFIED Qualifiers: Heart failure type: unspecified (5) Hypertension Assessment/Plan: labile BP currently on coreq 3.125mg bid, digoxin 0.125mg daily Code(s): I10 - ESSENTIAL (PRIMARY) HYPERTENSION (6) Uncontrolled type 2 diabetes mellitus Assessment/Plan: BGMs improved, goal is to maintain fasting bgms<180 tightened sliding scale insulin on levemir 45 units at hs Code(s): E11.65 - TYPE 2 DIABETES MELLITUS WITH HYPERGLYCEMIA (7) DVT prophylaxis Assessment/Plan: heparin bid, hold heparin at midnight Code(s): Z29.9 - ENCOUNTER FOR PROPHYLACTIC MEASURES, UNSPECIFIED Visit type - Emergency Visit Emergency Visit: Yes ED Registration Date: 02/03/20 Care time: The patient presented to the Emergency Department on the above date and was hospitalized for further evaluation of their emergent condition. - New Patient This patient is new to me today: No - Critical Care Critical Care patient: No - Discharge Referral Referred to [facility] Med P.C.: No
[2020-02-11 16:48] LABS: ALBUMIN 2.1 g/dl (3.4-5.0); BILIRUBIN,TOTAL 0.2 mg/dL (0.2-1); BLOOD UREA NITROGEN 25.6 mg/dL (7-18); CALCIUM 8.9 mg/dL (8.5-10.1); CREATININE 1.3 mg/dL (0.55-1.3); MAGNESIUM 1.9 mg/dL (1.8-2.4); POTASSIUM 4.1 mmol/L (3.5-5.1); TOT PROT 7.2 g/dl (6.4-8.2)
[2020-02-11] MEDS ORDERED: QUEtiapine FUMARATE 25 MG TABLET ONE (21:47)
[2020-02-11] MEDS: ATORVASTATIN CA 20 MG TABLET (FP) PO SCH (21:55)
[2020-02-11] MEDS: INSULIN (LEVEMIR) 100 UNITS/ML UNITS SQ SCH (21:57)
[2020-02-11] MEDS: QUEtiapine FUMARATE 50 MG TABLET PO SCH (22:00)
[2020-02-11 22:49] LABS: INR 1.2 (0.83-1.09); PROTHROMBIN TIME (PATIENT) 14.2 SEC (9.7-13.0)
[2020-02-12] MEDS: INSULIN SLIDING SCALE (NOVOLOG) 1 VIAL SQ SCH ×4 (06:31→22:13)
[2020-02-12] MEDS: GABAPENTIN 300 MG CAPSULE PO SCH ×3 (06:31→21:45)
--- NOTE | 2020-02-12 10:27 | PN ---
Physical Exam: SUBJECTIVE: Patient seen and examined at the bedside. denies any pain or malaise. OBJECTIVE: Patient is a 64 year old male with a significant past medical history of DM, schizophrenia, HTN, HLD, GERD, dementia, EtOH use disorder who had his right knee great toe amputated apx 1 month ago, presents to the ED on 02/03/2020 with right 2nd digit gangrene. At [facility] pt underwent RLE angiogram which revealed right SFA occlusion. He is being followed by vascular surgery and was scheduled for a fem-pop bypass today but procedure to be re-scheduled per surgery. covid status: negative as per serology 02/02 and 02/10/2020 Vital Signs Period Temp Pulse Resp BP Sys/Leahy Pulse Ox Last 24 Hr 98.1 F-98.8 F 80-94 16-18 140-178/75-88 95-98 GENERAL: The patient is awake, alert, in no acute distress. forgetful HEAD: Normal with no signs of trauma. EYES: PERRL, extraocular movements intact, sclera anicteric, conjunctiva clear. No ptosis. ENT: Ears normal, nares patent, oropharynx clear without exudates NECK: Trachea midline, full range of motion, supple. LUNGS: Breath sounds equal HEART: Regular rate and rhythm ABDOMEN: Soft, nontender, nondistended, normoactive bowel sounds EXTREMITIES: right foot dressing, for right 2nd digit gangrene. wound wrapped in aguilar. NEUROLOGICAL: Normal speech, gait not observed. PSYCH: Normal mood, normal affect. Laboratory Results - last 24 hr 02/10/20 02/11/20 02/11/20 12:38 06:00 11:39 WBC RBC Hgb Hct MCV MCH MCHC RDW Plt Count MPV Absolute Neuts (auto) Neutrophils % Lymphocytes % Monocytes % Eosinophils % Basophils % Nucleated RBC % PT with INR INR Sodium 140 Potassium 4.1 Chloride 108 H Carbon Dioxide 27 Anion Gap 5 L BUN 25.6 H Creatinine 1.3 Est GFR (CKD-EPI)AfAm 67.78 Est GFR (CKD-EPI)NonAf 58.48 POC Glucometer 203 Random Glucose 157 H Calcium 8.9 Magnesium 1.9 Total Bilirubin 0.2 AST 16 ALT 33 Alkaline Phosphatase 84 Total Protein 7.2 Albumin 2.1 L Crossmatch See Detail 02/11/20 02/11/20 02/11/20 15:30 17:59 21:54 WBC 7.8 RBC 3.42 L Hgb 9.2 L Hct 27.9 L MCV 81.4 MCH 26.8 MCHC 32.9 RDW 14.0 Plt Count 356 MPV 7.7 Absolute Neuts (auto) 5.7 Neutrophils % 73.2 Lymphocytes % 14.7 Monocytes % 7.9 Eosinophils % 3.6 Basophils % 0.6 Nucleated RBC % 0 PT with INR INR Sodium Potassium Chloride Carbon Dioxide Anion Gap BUN Creatinine Est GFR (CKD-EPI)AfAm Est GFR (CKD-EPI)NonAf POC Glucometer 189 178 Random Glucose Calcium Magnesium Total Bilirubin AST ALT Alkaline Phosphatase Total Protein Albumin Crossmatch 02/11/20 02/12/20 22:40 06:30 WBC RBC Hgb Hct MCV MCH MCHC RDW Plt Count MPV Absolute Neuts (auto) Neutrophils % Lymphocytes % Monocytes % Eosinophils % Basophils % Nucleated RBC % PT with INR 14.20 H INR 1.20 H Sodium Potassium Chloride Carbon Dioxide Anion Gap BUN Creatinine Est GFR (CKD-EPI)AfAm Est GFR (CKD-EPI)NonAf POC Glucometer 166 Random Glucose Calcium Magnesium Total Bilirubin AST ALT Alkaline Phosphatase Total Protein Albumin Crossmatch Active Medications Generic Name Dose Route Start Last Admin Trade Name Freq PRN Reason Stop Dose Admin Amino Acids 30 ml 02/11/20 10:00 02/11/20 10:19 Prosource No Carb Liquid Pkt PO 30 ml DAILY HUGO Administration Aspirin 81 mg 02/06/20 10:00 02/11/20 10:20 Asa - PO 81 mg DAILY [facility]GO Administration Atorvastatin Calcium 20 mg 02/05/20 22:00 02/11/20 21:55 Lipitor - PO 20 mg HS HUGO Administration Carvedilol 3.125 mg 02/05/20 22:00 02/11/20 21:55 Coreg - PO 3.125 mg BID HUGO Administration Clopidogrel Bisulfate 75 mg 02/06/20 10:00 02/11/20 10:20 Plavix - PO 75 mg DAILY [facility]GO Administration Collagenase 1 applic 02/06/20 10:00 02/11/20 10:21 Santyl - TP 1 applic DAILY [facility]GO Administration Protocol Digoxin 0.125 mg 02/06/20 10:00 02/11/20 10:20 Lanoxin - PO 0.125 mg DAILY [facility]GO Administration Docusate Sodium 100 mg 02/06/20 11:15 02/11/20 21:55 Colace - PO 100 mg BID HUGO Administration Famotidine 20 mg 02/05/20 22:00 02/11/20 21:55 Pepcid - PO 20 mg BID HUGO Administration Fentanyl 50 mcg 02/05/20 18:06 02/05/20 17:40 Sublimaze Injection - IVPUSH 50 mcg [id number] PRN Administration PAIN-PACU ORDER X 4 DOSES ONLY Gabapentin 300 mg 02/05/20 22:00 02/12/20 06:31 Neurontin - PO 300 mg TID HUGO Administration Insulin Aspart 1 vial 02/10/20 16:30 02/12/20 06:31 Novolog Vial Sliding Scale - SQ Not Given ACHS [facility] Protocol Insulin Detemir 45 units 02/07/20 22:00 02/11/20 21:57 Levemir Vial SQ 45 units HS HUGO Administration Multivitamins/Minerals/Vitamin C 1 tab 02/06/20 10:00 02/11/20 10:21 Tab-A-Vit - PO 1 tab DAILY [facility]GO Administration Oxycodone HCl 5 mg 02/11/20 12:05 02/11/20 21:55 Roxicodone - PO 5 mg Q6H PRN Administration PAIN LEVEL 6-10 Polyethylene Glycol 17 gm 02/06/20 11:15 02/11/20 12:30 Miralax (For Daily Use) - PO Not Given DAILY HUGO Quetiapine Fumarate 50 mg 02/05/20 22:00 02/11/20 22:00 Seroquel - PO 50 mg HS HUGO Administration Sitagliptin Phosphate 100 mg 02/06/20 10:00 02/11/20 10:20 Januvia - PO 100 mg DAILY [facility]GO Administration ASSESSMENT/PLAN: Problem List - Problems (1) Diabetic foot infection Assessment/Plan: Patient has peripheral artery disease with right foot cellulitis/osteomyelitis status post right great amputation on IV antibiotic antibiotics discontinued by ID. patient is s/P RLE angiogram on 02/04 Right SFA is occluded. Pt requires a fem-pop above knee bypass, was scheduled for 02/12/2020, but to be re scheduled per vascular. cleared by cardiology for bypass surgery neurontin TID continue lipitor collagenase dressing to RLE Code(s): E11.628 - TYPE 2 DIABETES MELLITUS WITH OTHER SKIN COMPLICATIONS; L08.9 - LOCAL INFECTION OF THE SKIN AND SUBCUTANEOUS TISSUE, UNSP (2) Anemia Assessment/Plan: Anemia of chronic disease Hemoglobin is stable monitor CBC daily type and screen completed repeat cbc prior to surgery Code(s): D64.9 - ANEMIA, UNSPECIFIED (3) CKD (chronic kidney disease) Assessment/Plan: monitor kidney function trend intake/output and electrolytes Code(s): N18.9 - CHRONIC KIDNEY DISEASE, UNSPECIFIED (4) Congestive heart failure Assessment/Plan: Patient has normal ejection fraction, continue coreg, and digoxin, Stress test completed on 02/09/2020 no signs of volume overload Code(s): I50.9 - HEART FAILURE, UNSPECIFIED Qualifiers: Heart failure type: unspecified (5) Hypertension Assessment/Plan: labile BP currently on coreq 3.125mg bid, digoxin 0.125mg daily Code(s): I10 - ESSENTIAL (PRIMARY) HYPERTENSION (6) Uncontrolled type 2 diabetes mellitus Assessment/Plan: BGMs improved, goal is to maintain fasting bgms<180 tightened sliding scale insulin on levemir 45 units at hs Code(s): E11.65 - TYPE 2 DIABETES MELLITUS WITH HYPERGLYCEMIA (7) DVT prophylaxis Assessment/Plan: heparin bid Code(s): Z29.9 - ENCOUNTER FOR PROPHYLACTIC MEASURES, UNSPECIFIED Visit type - Emergency Visit Emergency Visit: Yes ED Registration Date: 02/03/20 Care time: The patient presented to the Emergency Department on the above date and was hospitalized for further evaluation of their emergent condition. - New Patient This patient is new to me today: No - Critical Care Critical Care patient: No - Discharge Referral Referred to [facility] Med P.C.: No
[2020-02-12] MEDS: CARVEDILOL 3.125 MG TABLET (FP) PO SCH ×2 (10:44→21:46)
[2020-02-12] MEDS: ASPIRIN 81 MG CHEWABLE TABLETS PO SCH (10:44)
[2020-02-12] MEDS: DOCUSATE SODIUM 100 MG CAPSULE (FP) PO SCH ×2 (10:44→21:45)
[2020-02-12] MEDS: DIGOXIN 0.125 MG TABLET (FP) PO SCH (10:44)
[2020-02-12] MEDS: POLYETHYLENE GLYCOL 3350 119 GM BTL PO SCH (10:45)
[2020-02-12] MEDS: CLOPIDOGREL BISULFATE 75 MG TABLET (FP) PO SCH (10:46)
[2020-02-12] MEDS: FAMOTIDINE 20 MG TABLET PO SCH ×2 (10:46→21:45)
[2020-02-12] MEDS: COLLAGENASE CLOSTRIDIUM HIST. 30 GRAMS TUBE TP SCH (10:46)
[2020-02-12] MEDS: MULTIVITAMINS (DAILY MVI) TABLET (FP) PO SCH (10:46)
[2020-02-12 11:55] LABS: BASO % 0.7 % (0-2.0); HEMATOCRIT 28.1 % (35.4-49); HEMOGLOBIN 9.3 GM/dL (11.7-16.9); LYMPH % 15.7 % (8-40); MCH 27.1 pg (25.7-33.7); MCHC 33.3 g/dl (32.0-35.9); MEAN CELL VOLUME 81.4 fl (80-96); MEAN PLT VOLUME 7.8 fl (7.5-11.1); MONO % 7.5 % (3.8-10.2); NEUT % 72.1 % (42.8-82.8); PLATELET COUNT 386 K/MM3 (134-434); RBC 3.45 M/mm3 (4.00-5.60); RDW 14.3 % (11.9-15.9); WHITE BLOOD COUNT 9.2 K/mm3 (4.0-10.0)
[2020-02-12 12:19] LABS: ALBUMIN 2.2 g/dl (3.4-5.0); BILIRUBIN,TOTAL 0.5 mg/dL (0.2-1); BLOOD UREA NITROGEN 28.8 mg/dL (7-18); CALCIUM 8.9 mg/dL (8.5-10.1); CREATININE 1.3 mg/dL (0.55-1.3); MAGNESIUM 1.9 mg/dL (1.8-2.4); POTASSIUM 4.3 mmol/L (3.5-5.1); TOT PROT 7.4 g/dl (6.4-8.2)
[2020-02-12] MEDS: AMINO ACIDS/PROTEIN HYDROLYS 30 ML LIQUID.PKT PO SCH (13:57)
[2020-02-12] MEDS: sitaGLIPtin PHOSPHATE 50 MG TABLET PO SCH (13:57)
--- NOTE | 2020-02-12 16:30 | PN ---
Progress Note (short form) - Note Progress Note: Vascular Surgery Pt here with right foot gangrene. Pt had amputation on right foot done at [facility] in november. REcent angiogram shows right SFA is occluded and amputation site will not heal without intervention. Pt needs right fem -pop bypass. could not do today due to emergencies in OR Next time available is tues. Will plan for that day. Covid 19 test reordered. I spoke to the brother about plan. Thien Pineda DO
[2020-02-12] MEDS ORDERED: QUEtiapine FUMARATE 25 MG TABLET ONE (21:33)
[2020-02-12] MEDS: HEPARIN NA (PORCINE) 5,000 UNITS/ML 1ML VIAL SQ SCH (21:45)
[2020-02-12] MEDS: QUEtiapine FUMARATE 50 MG TABLET PO SCH (21:46)
[2020-02-12] MEDS: ATORVASTATIN CA 20 MG TABLET (FP) PO SCH (21:46)
[2020-02-12] MEDS: INSULIN (LEVEMIR) 100 UNITS/ML UNITS SQ SCH (21:47)
[2020-02-13] MEDS: INSULIN SLIDING SCALE (NOVOLOG) 1 VIAL SQ SCH ×4 (06:37→21:31)
[2020-02-13] MEDS: GABAPENTIN 300 MG CAPSULE PO SCH ×3 (06:43→21:32)
[2020-02-13 07:48] LABS: BASO % 0.5 % (0-2.0); EOS % 3.6 % (0-4.5); HEMATOCRIT 29.5 % (35.4-49); HEMOGLOBIN 9.7 GM/dL (11.7-16.9); MCH 26.5 pg (25.7-33.7); MCHC 32.9 g/dl (32.0-35.9); MEAN CELL VOLUME 80.6 fl (80-96); MEAN PLT VOLUME 7.5 fl (7.5-11.1); MONO % 6.7 % (3.8-10.2); NEUT % 74.2 % (42.8-82.8); PLATELET COUNT 427 K/MM3 (134-434); RBC 3.66 M/mm3 (4.00-5.60); RDW 14.3 % (11.9-15.9); WHITE BLOOD COUNT 11.5 K/mm3 (4.0-10.0)
[2020-02-13 08:22] LABS: ALBUMIN 2.3 g/dl (3.4-5.0); BILIRUBIN,TOTAL 0.2 mg/dL (0.2-1); BLOOD UREA NITROGEN 31.2 mg/dL (7-18); CALCIUM 9.2 mg/dL (8.5-10.1); CREATININE 1.5 mg/dL (0.55-1.3); TOT PROT 7.8 g/dl (6.4-8.2)
[2020-02-13] MEDS ORDERED: PT OWN MED DRAWER 7, Y5N ONE (10:00)
[2020-02-13] MEDS: CLOPIDOGREL BISULFATE 75 MG TABLET (FP) PO SCH (10:21)
[2020-02-13] MEDS: FAMOTIDINE 20 MG TABLET PO SCH ×2 (10:21→21:32)
[2020-02-13] MEDS: MULTIVITAMINS (DAILY MVI) TABLET (FP) PO SCH (10:21)
[2020-02-13] MEDS: ASPIRIN 81 MG CHEWABLE TABLETS PO SCH (10:21)
[2020-02-13] MEDS: AMINO ACIDS/PROTEIN HYDROLYS 30 ML LIQUID.PKT PO SCH (10:22)
[2020-02-13] MEDS: CARVEDILOL 3.125 MG TABLET (FP) PO SCH ×2 (10:22→21:32)
[2020-02-13] MEDS: DIGOXIN 0.125 MG TABLET (FP) PO SCH (10:22)
[2020-02-13] MEDS: DOCUSATE SODIUM 100 MG CAPSULE (FP) PO SCH ×2 (10:22→21:32)
[2020-02-13] MEDS: sitaGLIPtin PHOSPHATE 50 MG TABLET PO SCH (10:22)
[2020-02-13] MEDS: HEPARIN NA (PORCINE) 5,000 UNITS/ML 1ML VIAL SQ SCH ×2 (10:23→21:32)
[2020-02-13] MEDS: COLLAGENASE CLOSTRIDIUM HIST. 30 GRAMS TUBE TP SCH (10:23)
--- NOTE | 2020-02-13 11:27 | PN ---
Progress Note (short form) - Note Progress Note: s: no cp sob palps dizzy Current Medications Generic Name Dose Route Start Last Admin Trade Name Freq PRN Reason Stop Dose Admin Amino Acids 30 ml 02/11/20 10:00 02/13/20 10:22 Prosource No Carb Liquid Pkt PO 30 ml DAILY HUGO Administration Aspirin 81 mg 02/06/20 10:00 02/13/20 10:21 Asa - PO 81 mg DAILY HUGO Administration Atorvastatin Calcium 20 mg 02/05/20 22:00 02/12/20 21:46 Lipitor - PO 20 mg HS HUGO Administration Carvedilol 3.125 mg 02/05/20 22:00 02/13/20 10:22 Coreg - PO 3.125 mg BID HUGO Administration Clopidogrel Bisulfate 75 mg 02/06/20 10:00 02/13/20 10:21 Plavix - PO 75 mg DAILY HUGO Administration Collagenase 1 applic 02/06/20 10:00 02/13/20 10:23 Santyl - TP 1 applic DAILY [facility]GO Administration Protocol Digoxin 0.125 mg 02/06/20 10:00 02/13/20 10:22 Lanoxin - PO 0.125 mg DAILY HUGO Administration Docusate Sodium 100 mg 02/06/20 11:15 02/13/20 10:22 Colace - PO 100 mg BID HUGO Administration Famotidine 20 mg 02/05/20 22:00 02/13/20 10:21 Pepcid - PO 20 mg BID HUGO Administration Fentanyl 50 mcg 02/05/20 18:06 02/05/20 17:40 Sublimaze Injection - IVPUSH 50 mcg [id number] PRN Administration PAIN-PACU ORDER X 4 DOSES ONLY Gabapentin 300 mg 02/05/20 22:00 02/13/20 06:43 Neurontin - PO 300 mg TID HUGO Administration Heparin Sodium (Porcine) 5,000 unit 02/12/20 22:00 02/13/20 10:23 Heparin - SQ 5,000 unit BID HUGO Administration Insulin Aspart 1 vial 02/10/20 16:30 02/13/20 06:37 Novolog Vial Sliding Scale - SQ Not Given ACHS [facility] Protocol Insulin Detemir 45 units 02/07/20 22:00 02/12/20 21:47 Levemir Vial SQ 45 units HS HUGO Administration Multivitamins/Minerals/Vitamin C 1 tab 02/06/20 10:00 02/13/20 10:21 Tab-A-Vit - PO 1 tab DAILY [facility]GO Administration Oxycodone HCl 5 mg 02/11/20 12:05 02/11/20 21:55 Roxicodone - PO 5 mg Q6H PRN Administration PAIN LEVEL 6-10 Polyethylene Glycol 17 gm 02/06/20 11:15 02/12/20 10:45 Miralax (For Daily Use) - PO Not Given DAILY HUGO Quetiapine Fumarate 50 mg 02/05/20 22:00 02/12/20 21:46 Seroquel - PO 50 mg HS HUGO Administration Sitagliptin Phosphate 100 mg 02/06/20 10:00 02/13/20 10:22 Januvia - PO 100 mg DAILY [facility]GO Administration Vital Signs Period Temp Pulse Resp BP Sys/Leahy Pulse Ox Last 24 Hr 97.4 F-98.4 F 83-95 15-18 135-150/75-84 95-98 Constitutional: Yes: Well Nourished, No Distress Eyes: No: Sclera Icterus HENT: No: Nasal Congestion Neck: No: Decreased ROM Respiratory: Yes: CTA Bilaterally. No: Accessory Muscle Use, Rales, Wheezes Gastrointestinal: Yes: Normal Bowel Sounds. No: Distention, Hepatomegaly, Palpable Mass, Tenderness Cardiovascular: Yes: Regular Rate and Rhythm JVD: No Carotid Bruit: No PMI: Non-Displaced Heart Sounds: Yes: S1, S2. No: Gallop Murmur: No: Systolic Murmur, Diastolic Murmur Musculoskeletal: Yes: Other (No kyphosis) Edema: No Peripheral Pulses: 2+ Left Carotid, 2+ Right Carotid, 2+ Left Doralis Pedis, 2+ Right Dorsalis Pedis Integumentary: No: Jaundice Neurological: Yes: Alert. No: Seizure Psychiatric: No: Agitated CBC, BMP 02/13/20 07:15 02/13/20 07:15 Assessment/Plan echo 01/2020: normal LVEF, nl RV, nl valve function. CXR: ATX vs infiltrate R base, no effusions/congestion mibi 01/2020 mod sized area of inferolateral scar, no ischemia, EF 45% preop CV eval, PAD for LE bypass: -cannot evaluate for cardiac sx's due to his mental capacity -mult RFs for CAD/cardiomyopathy including DM, prior etoh abuse, age -recent echo unremarkable - mibi shows inferolateral scar, no ischemia - continue statin, plavix as medical management for likely underlying CAD -pt on plavix, unknown indication (PAD?)--mgmt perioperatively per vascular -abnormal CXR with atx vs infiltrate R base--tx and medical optimization per hospitalist -on digoxin for unclear indication, level ok here, continue - patient is at acceptable risk for LE bypass, no further cardiac testing prior to procedure DM: -per hospitalist HTN: -bp has been very labile here, this AM is controlled -cont present meds, observe trend HPL: -cont statin
[2020-02-13] MEDS: POLYETHYLENE GLYCOL 3350 119 GM BTL PO SCH (12:23)
--- NOTE | 2020-02-13 20:10 | PN ---
Progress Note, Physician History of Present Illness: seen and examined at bedside. c/o pain in RLE foot. otherwise afebrile. Denies nausea vomiting fever chills chest pain or SOB. WBC count bumped up slightly. Cr 1.5 - Current Medication List Current Medications: Active Medications Amino Acids (Prosource No Carb Liquid Pkt) 30 ml PO DAILY [facility] Last Admin: 02/13/20 10:22 Dose: 30 ml Documented by: Aspirin (Asa -) 81 mg PO DAILY [facility] Last Admin: 02/13/20 10:21 Dose: 81 mg Documented by: Atorvastatin Calcium (Lipitor -) 20 mg PO HS [facility] Last Admin: 02/12/20 21:46 Dose: 20 mg Documented by: Carvedilol (Coreg -) 3.125 mg PO BID [facility] Last Admin: 02/13/20 10:22 Dose: 3.125 mg Documented by: Clopidogrel Bisulfate (Plavix -) 75 mg PO DAILY [facility] Last Admin: 02/13/20 10:21 Dose: 75 mg Documented by: Collagenase (Santyl -) 1 applic TP DAILY [facility]; Protocol Last Admin: 02/13/20 10:23 Dose: 1 applic Documented by: Digoxin (Lanoxin -) 0.125 mg PO DAILY [facility] Last Admin: 02/13/20 10:22 Dose: 0.125 mg Documented by: Docusate Sodium (Colace -) 100 mg PO BID [facility] Last Admin: 02/13/20 10:22 Dose: 100 mg Documented by: Famotidine (Pepcid -) 20 mg PO BID [facility] Last Admin: 02/13/20 10:21 Dose: 20 mg Documented by: Fentanyl (Sublimaze Injection -) 50 mcg IVPUSH [id number] PRN PRN Reason: PAIN-PACU ORDER X 4 DOSES ONLY Last Admin: 02/05/20 17:40 Dose: 50 mcg Documented by: Gabapentin (Neurontin -) 300 mg PO TID [facility] Last Admin: 02/13/20 15:33 Dose: 300 mg Documented by: Heparin Sodium (Porcine) (Heparin -) 5,000 unit SQ BID [facility] Last Admin: 02/13/20 10:23 Dose: 5,000 unit Documented by: Insulin Aspart (Novolog Vial Sliding Scale -) 1 vial SQ ACHS [facility]; Protocol Last Admin: 02/13/20 16:40 Dose: 8 units Documented by: Insulin Detemir (Levemir Vial) 45 units SQ [facility] Last Admin: 02/12/20 21:47 Dose: 45 units Documented by: Multivitamins/Minerals/Vitamin C (Tab-A-Vit -) 1 tab PO DAILY [facility] Last Admin: 02/13/20 10:21 Dose: 1 tab Documented by: Oxycodone HCl (Roxicodone -) 5 mg PO Q6H PRN PRN Reason: PAIN LEVEL 6-10 Last Admin: 02/11/20 21:55 Dose: 5 mg Documented by: Polyethylene Glycol (Miralax (For Daily Use) -) 17 gm PO DAILY [facility] Last Admin: 02/13/20 12:23 Dose: 17 gm Documented by: Quetiapine Fumarate (Seroquel -) 50 mg PO [facility] Last Admin: 02/12/20 21:46 Dose: 50 mg Documented by: Sitagliptin Phosphate (Januvia -) 100 mg PO DAILY [facility] Last Admin: 02/13/20 10:22 Dose: 100 mg Documented by: - Objective Vital Signs: Vital Signs Temperature 98.9 F 02/13/20 18:00 Pulse Rate 89 02/13/20 18:00 Respiratory Rate 18 02/13/20 18:00 Blood Pressure 131/76 02/13/20 18:00 O2 Sat by Pulse Oximetry (%) 97 02/13/20 18:00 Constitutional: Yes: No Distress, Calm Eyes: Yes: EOM Intact, Other (conjunctival pallor) HENT: Yes: Atraumatic Cardiovascular: Yes: Regular Rate and Rhythm Respiratory: Yes: CTA Bilaterally Gastrointestinal: Yes: WNL, Normal Bowel Sounds, Soft Extremities: Yes: Amputation (RLE great toe), Other (RLE warm. Dressing intact with mild to moderate serosangenous drainage) Edema: No Wound/Incision: Yes: Other ( Dressing intact with mild to moderate serosangenous drainage.) Neurological: Yes: Alert Psychiatric: Yes: Alert Labs: CBC, BMP 02/13/20 07:15 02/13/20 07:15 INR, PTT INR 1.20 (0.83-1.09) H 02/11/20 22:40 Impression/Plan Impression/Plan: diabetic foot infection POD#8 s/p angiogram. previous right great toe amputation needs right fem-pop bypass to heal Patient has peripheral artery disease with right foot cellulitis/osteomyelitis status post right great amputation on IV antibiotic antibiotics discontinued by ID. Right SFA is occluded. Pt requires a fem-pop above knee bypass, was scheduled for 02/12/2020, but to be re scheduled per vascular. cleared by cardiology for bypass surgery neurontin TID for diabetic neuropathy continue lipitor collagenase dressing to RLE if spike temp culture and start ABx Anemia Assessment/Plan: Anemia of chronic disease Hemoglobin is stable at 9.7 monitor CBC daily type and screen completed repeat cbc prior to surgery CKD monitor kidney function trend intake/output and electrolytes creatinine 1.5. encouraged to orally hydrate. Congestive heart failure Assessment/Plan: Patient has normal ejection fraction, continue coreg, and digoxin, Stress test completed on 02/09/2020 no signs of volume overload-patient looks dry Hypertension labile BP but controlled today currently on coreq 3.125mg bid, digoxin 0.125mg daily Uncontrolled type 2 diabetes mellitus BGMs better today sliding scale insulin on levemir 45 units at hs DVT PPx heparin bid Visit type - Emergency Visit Emergency Visit: Yes ED Registration Date: 02/03/20 Care time: The patient presented to the Emergency Department on the above date and was hospitalized for further evaluation of their emergent condition. - New Patient This patient is new to me today: Yes Date on this admission: 02/13/20 - Critical Care Critical Care patient: No
[2020-02-13] MEDS ORDERED: INSULIN (NOVOLOG) ASPART 100 UNITS/ML 10ML VIAL ONE (21:05)
[2020-02-13] MEDS ORDERED: QUEtiapine FUMARATE 25 MG TABLET ONE (21:06)
[2020-02-13] MEDS: INSULIN (LEVEMIR) 100 UNITS/ML UNITS SQ SCH (21:32)
[2020-02-13] MEDS: ATORVASTATIN CA 20 MG TABLET (FP) PO SCH (21:32)
[2020-02-13] MEDS: QUEtiapine FUMARATE 50 MG TABLET PO SCH (21:33)
[2020-02-14] MEDS: INSULIN SLIDING SCALE (NOVOLOG) 1 VIAL SQ SCH ×4 (06:14→21:39)
[2020-02-14] MEDS: GABAPENTIN 300 MG CAPSULE PO SCH ×3 (06:14→21:38)
[2020-02-14] MEDS ORDERED: INSULIN (NOVOLOG) ASPART 100 UNITS/ML 10ML VIAL ONE ×2 (06:22→16:59)
--- NOTE | 2020-02-14 10:59 | PN ---
Progress Note (short form) - Note Progress Note: s: no cp sob palps dizzy Current Medications Generic Name Dose Route Start Last Admin Trade Name Freq PRN Reason Stop Dose Admin Amino Acids 30 ml 02/11/20 10:00 02/13/20 10:22 Prosource No Carb Liquid Pkt PO 30 ml DAILY [facility] Administration Aspirin 81 mg 02/06/20 10:00 02/13/20 10:21 Asa - PO 81 mg DAILY [facility] Administration Atorvastatin Calcium 20 mg 02/05/20 22:00 02/13/20 21:32 Lipitor - PO 20 mg HS [facility] Administration Carvedilol 3.125 mg 02/05/20 22:00 02/13/20 21:32 Coreg - PO 3.125 mg BID [facility] Administration Clopidogrel Bisulfate 75 mg 02/06/20 10:00 02/13/20 10:21 Plavix - PO 75 mg DAILY [facility] Administration Collagenase 1 applic 02/06/20 10:00 02/13/20 10:23 Santyl - TP 1 applic DAILY [facility] Administration Protocol Digoxin 0.125 mg 02/06/20 10:00 02/13/20 10:22 Lanoxin - PO 0.125 mg DAILY [facility] Administration Docusate Sodium 100 mg 02/06/20 11:15 02/13/20 21:32 Colace - PO 100 mg BID [facility] Administration Famotidine 20 mg 02/05/20 22:00 02/13/20 21:32 Pepcid - PO 20 mg BID [facility] Administration Fentanyl 50 mcg 02/05/20 18:06 02/05/20 17:40 Sublimaze Injection - IVPUSH 50 mcg [id number] PRN Administration PAIN-PACU ORDER X 4 DOSES ONLY Gabapentin 300 mg 02/05/20 22:00 02/14/20 06:14 Neurontin - PO 300 mg TID [facility] Administration Heparin Sodium (Porcine) 5,000 unit 02/12/20 22:00 02/13/20 21:32 Heparin - SQ 5,000 unit BID [facility] Administration Insulin Aspart 1 vial 02/10/20 16:30 02/14/20 06:14 Novolog Vial Sliding Scale - SQ 6 units ACHS [facility] Administration Protocol Insulin Detemir 45 units 02/07/20 22:00 02/13/20 21:32 Levemir Vial SQ 45 units HS [facility] Administration Multivitamins/Minerals/Vitamin C 1 tab 02/06/20 10:00 02/13/20 10:21 Tab-A-Vit - PO 1 tab DAILY [facility] Administration Oxycodone HCl 5 mg 02/11/20 12:05 02/11/20 21:55 Roxicodone - PO 5 mg Q6H PRN Administration PAIN LEVEL 6-10 Polyethylene Glycol 17 gm 02/06/20 11:15 02/13/20 12:23 Miralax (For Daily Use) - PO 17 gm DAILY [facility] Administration Quetiapine Fumarate 50 mg 02/05/20 22:00 02/13/20 21:33 Seroquel - PO 50 mg HS [facility] Administration Sitagliptin Phosphate 100 mg 02/06/20 10:00 02/13/20 10:22 Januvia - PO 100 mg DAILY [facility] Administration Vital Signs Period Temp Pulse Resp BP Sys/Leahy Pulse Ox Last 24 Hr 98.1 F-99.2 F 85-95 18-18 131-153/76-86 94-97 Constitutional: Yes: Well Nourished, No Distress Eyes: No: Sclera Icterus HENT: No: Nasal Congestion Neck: No: Decreased ROM Respiratory: Yes: CTA Bilaterally. No: Accessory Muscle Use, Rales, Wheezes Gastrointestinal: Yes: Normal Bowel Sounds. No: Distention, Hepatomegaly, Palpable Mass, Tenderness Cardiovascular: Yes: Regular Rate and Rhythm JVD: No Carotid Bruit: No PMI: Non-Displaced Heart Sounds: Yes: S1, S2. No: Gallop Murmur: No: Systolic Murmur, Diastolic Murmur Edema: No Integumentary: No: Jaundice Neurological: Yes: Alert. No: Seizure Psychiatric: No: Agitated CBC, BMP 02/13/20 07:15 02/13/20 07:15 Assessment/Plan echo 01/2020: normal LVEF, nl RV, nl valve function. CXR: ATX vs infiltrate R base, no effusions/congestion mibi 01/2020 mod sized area of inferolateral scar, no ischemia, EF 45% preop CV eval, PAD for LE bypass: -cannot evaluate for cardiac sx's due to his mental capacity -mult RFs for CAD/cardiomyopathy including DM, prior etoh abuse, age -recent echo unremarkable - mibi shows inferolateral scar, no ischemia - continue statin, plavix as medical management for likely underlying CAD -pt on plavix, unknown indication (PAD?)--mgmt perioperatively per vascular -abnormal CXR with atx vs infiltrate R base--tx and medical optimization per hospitalist -on digoxin for unclear indication, level ok here, continue - patient is at acceptable risk for LE bypass, no further cardiac testing prior to procedure DM: -per hospitalist HTN: -bp has been very labile here, this AM is controlled -cont present meds, observe trend HPL: -cont statin
[2020-02-14 11:32] LABS: BASO % 0.8 % (0-2.0); EOS % 2.6 % (0-4.5); HEMATOCRIT 29.6 % (35.4-49); HEMOGLOBIN 9.8 GM/dL (11.7-16.9); MCH 27.1 pg (25.7-33.7); MCHC 33.3 g/dl (32.0-35.9); MEAN CELL VOLUME 81.2 fl (80-96); MEAN PLT VOLUME 7.8 fl (7.5-11.1); MONO % 7.3 % (3.8-10.2); NEUT % 76.3 % (42.8-82.8); PLATELET COUNT 413 K/MM3 (134-434); RBC 3.64 M/mm3 (4.00-5.60); WHITE BLOOD COUNT 9.7 K/mm3 (4.0-10.0)
[2020-02-14] MEDS: oxyCODONE HCL 5 MG TABLET PO PRN (11:45)
[2020-02-14] MEDS: DIGOXIN 0.125 MG TABLET (FP) PO SCH (11:45)
[2020-02-14] MEDS: sitaGLIPtin PHOSPHATE 50 MG TABLET PO SCH (11:46)
[2020-02-14] MEDS: CLOPIDOGREL BISULFATE 75 MG TABLET (FP) PO SCH (11:46)
[2020-02-14] MEDS: FAMOTIDINE 20 MG TABLET PO SCH ×2 (11:46→21:38)
[2020-02-14] MEDS: MULTIVITAMINS (DAILY MVI) TABLET (FP) PO SCH (11:46)
[2020-02-14] MEDS: DOCUSATE SODIUM 100 MG CAPSULE (FP) PO SCH ×2 (11:46→21:38)
[2020-02-14] MEDS: CARVEDILOL 3.125 MG TABLET (FP) PO SCH (11:47)
[2020-02-14] MEDS: ASPIRIN 81 MG CHEWABLE TABLETS PO SCH (11:47)
[2020-02-14] MEDS: COLLAGENASE CLOSTRIDIUM HIST. 30 GRAMS TUBE TP SCH (11:47)
[2020-02-14] MEDS: AMINO ACIDS/PROTEIN HYDROLYS 30 ML LIQUID.PKT PO SCH (11:47)
[2020-02-14] MEDS: HEPARIN NA (PORCINE) 5,000 UNITS/ML 1ML VIAL SQ SCH ×2 (11:48→21:38)
[2020-02-14] MEDS: POLYETHYLENE GLYCOL 3350 119 GM BTL PO SCH (11:48)
[2020-02-14 11:56] LABS: ALBUMIN 2.2 g/dl (3.4-5.0); BILIRUBIN,TOTAL 0.2 mg/dL (0.2-1); BLOOD UREA NITROGEN 29.6 mg/dL (7-18); CALCIUM 9.1 mg/dL (8.5-10.1); CREATININE 1.3 mg/dL (0.55-1.3); MAGNESIUM 1.9 mg/dL (1.8-2.4); POTASSIUM 4.4 mmol/L (3.5-5.1); TOT PROT 7.7 g/dl (6.4-8.2)
--- NOTE | 2020-02-14 19:55 | PN ---
Progress Note, Physician History of Present Illness: seen and examined at bedside. c/o pain in RLE foot. otherwise afebrile. Denies nausea vomiting fever chills chest pain or SOB. WBC count WNL. Creatinine down to 1.3. Refused RLE exam due to fear from pain. - Current Medication List Current Medications: Active Medications Amino Acids (Prosource No Carb Liquid Pkt) 30 ml PO DAILY [facility] Last Admin: 02/14/20 11:47 Dose: 30 ml Documented by: Aspirin (Asa -) 81 mg PO DAILY [facility] Last Admin: 02/14/20 11:47 Dose: 81 mg Documented by: Atorvastatin Calcium (Lipitor -) 20 mg PO HS [facility] Last Admin: 02/13/20 21:32 Dose: 20 mg Documented by: Carvedilol (Coreg -) 6.25 mg PO BID [facility] Clopidogrel Bisulfate (Plavix -) 75 mg PO DAILY [facility] Last Admin: 02/14/20 11:46 Dose: 75 mg Documented by: Collagenase (Santyl -) 1 applic TP DAILY [facility]; Protocol Last Admin: 02/14/20 11:47 Dose: 1 applic Documented by: Digoxin (Lanoxin -) 0.125 mg PO DAILY [facility] Last Admin: 02/14/20 11:45 Dose: 0.125 mg Documented by: Docusate Sodium (Colace -) 100 mg PO BID [facility] Last Admin: 02/14/20 11:46 Dose: 100 mg Documented by: Famotidine (Pepcid -) 20 mg PO BID [facility] Last Admin: 02/14/20 11:46 Dose: 20 mg Documented by: Fentanyl (Sublimaze Injection -) 50 mcg IVPUSH [id number] PRN PRN Reason: PAIN-PACU ORDER X 4 DOSES ONLY Last Admin: 02/05/20 17:40 Dose: 50 mcg Documented by: Gabapentin (Neurontin -) 300 mg PO TID [facility] Last Admin: 02/14/20 15:00 Dose: 300 mg Documented by: Heparin Sodium (Porcine) (Heparin -) 5,000 unit SQ BID [facility] Last Admin: 02/14/20 11:48 Dose: 5,000 unit Documented by: Insulin Aspart (Novolog Vial Sliding Scale -) 1 vial SQ [facility]; Protocol Last Admin: 02/14/20 17:03 Dose: 10 units Documented by: Insulin Detemir (Levemir Vial) 45 units SQ [facility] Last Admin: 02/13/20 21:32 Dose: 45 units Documented by: Multivitamins/Minerals/Vitamin C (Tab-A-Vit -) 1 tab PO DAILY [facility] Last Admin: 02/14/20 11:46 Dose: 1 tab Documented by: Oxycodone HCl (Roxicodone -) 5 mg PO Q6H PRN PRN Reason: PAIN LEVEL 6-10 Last Admin: 02/14/20 11:45 Dose: 5 mg Documented by: Polyethylene Glycol (Miralax (For Daily Use) -) 17 gm PO DAILY [facility] Last Admin: 02/14/20 11:48 Dose: 17 gm Documented by: Quetiapine Fumarate (Seroquel -) 50 mg PO [facility] Last Admin: 02/13/20 21:33 Dose: 50 mg Documented by: Sitagliptin Phosphate (Januvia -) 100 mg PO DAILY [facility] Last Admin: 02/14/20 11:46 Dose: 100 mg Documented by: - Objective Vital Signs: Vital Signs Temperature 99.0 F 02/14/20 19:25 Pulse Rate 93 H 02/14/20 19:25 Respiratory Rate 18 02/14/20 19:25 Blood Pressure 149/80 02/14/20 19:25 O2 Sat by Pulse Oximetry (%) 95 02/14/20 19:25 Constitutional: Yes: No Distress, Calm Eyes: Yes: EOM Intact, Other (conjunctival pallor) HENT: Yes: Atraumatic Cardiovascular: Yes: Regular Rate and Rhythm Respiratory: Yes: CTA Bilaterally Gastrointestinal: Yes: WNL, Normal Bowel Sounds, Soft Extremities: Yes: Amputation (RLE great toe), Other (RLE warm. Dressing intact with mild to moderate serous drainage) Edema: No Wound/Incision: Yes: Other ( Dressing intact with mild to moderate serous drainage.) Neurological: Yes: Alert Psychiatric: Yes: Alert Labs: CBC, BMP 02/14/20 11:07 02/14/20 11:07 INR, PTT INR 1.20 (0.83-1.09) H 02/11/20 22:40 Impression/Plan Impression/Plan: diabetic foot infection POD#8 s/p angiogram. previous right great toe amputation needs right fem-pop bypass to heal Patient has peripheral artery disease with right foot cellulitis/osteomyelitis status post right great amputation on IV antibiotic antibiotics discontinued by ID. Right SFA is occluded. Pt requires a fem-pop above knee bypass, was scheduled for 02/12/2020 but didbnt happen due to emergencies in the OR. likely 02/16/2020 per vascular. cleared by cardiology for bypass surgery neurontin TID for diabetic neuropathy continue lipitor collagenase dressing to RLE if spike temp culture and start ABx Anemia Assessment/Plan: Anemia of chronic disease Hemoglobin is stable at 9.8 monitor CBC daily type and screen completed repeat cbc prior to surgery CKD monitor kidney function trend intake/output and electrolytes creatinine 1.3. encouraged to orally hydrate. Congestive heart failure Assessment/Plan: Patient has normal ejection fraction, continue coreg, and digoxin, Stress test completed on 02/09/2020 no signs of volume overload Hypertension labile BP. Needs better control. currently on coreq 3.125mg bid, digoxin 0.125mg daily Increase coreg to 6.25mg po BID for better BP control. Uncontrolled type 2 diabetes mellitus BGMs better today sliding scale insulin on levemir 45 units at hs DVT PPx heparin bid Visit type - Emergency Visit Emergency Visit: Yes ED Registration Date: 02/03/20 Care time: The patient presented to the Emergency Department on the above date and was hospitalized for further evaluation of their emergent condition. - New Patient This patient is new to me today: No - Critical Care Critical Care patient: No
[2020-02-14] MEDS ORDERED: QUEtiapine FUMARATE 25 MG TABLET ONE (20:49)
[2020-02-14] MEDS: ATORVASTATIN CA 20 MG TABLET (FP) PO SCH (21:38)
[2020-02-14] MEDS: CARVEDILOL 6.25 MG TABLET (FP) PO SCH (21:38)
[2020-02-14] MEDS: INSULIN (LEVEMIR) 100 UNITS/ML UNITS SQ SCH (21:39)
[2020-02-14] MEDS: QUEtiapine FUMARATE 50 MG TABLET PO SCH (21:41)
[2020-02-15] MEDS: GABAPENTIN 300 MG CAPSULE PO SCH ×3 (06:30→21:18)
[2020-02-15] MEDS: INSULIN SLIDING SCALE (NOVOLOG) 1 VIAL SQ SCH ×4 (06:30→21:18)
[2020-02-15 10:31] LABS: BASO % 0.7 % (0-2.0); HEMATOCRIT 29.7 % (35.4-49); HEMOGLOBIN 9.7 GM/dL (11.7-16.9); LYMPH % 14.1 % (8-40); MCH 26.3 pg (25.7-33.7); MCHC 32.8 g/dl (32.0-35.9); MEAN CELL VOLUME 80.3 fl (80-96); MEAN PLT VOLUME 7.7 fl (7.5-11.1); MONO % 8.4 % (3.8-10.2); NEUT % 73.8 % (42.8-82.8); PLATELET COUNT 399 K/MM3 (134-434); RDW 14.2 % (11.9-15.9); WHITE BLOOD COUNT 9.3 K/mm3 (4.0-10.0)
[2020-02-15 11:06] LABS: POTASSIUM 4.2 mmol/L (3.5-5.1)
[2020-02-15] MEDS: DOCUSATE SODIUM 100 MG CAPSULE (FP) PO SCH ×2 (11:27→21:18)
[2020-02-15] MEDS: CARVEDILOL 6.25 MG TABLET (FP) PO SCH ×2 (11:27→21:18)
[2020-02-15] MEDS: MULTIVITAMINS (DAILY MVI) TABLET (FP) PO SCH (11:27)
[2020-02-15] MEDS: sitaGLIPtin PHOSPHATE 50 MG TABLET PO SCH (11:27)
[2020-02-15] MEDS: CLOPIDOGREL BISULFATE 75 MG TABLET (FP) PO SCH (11:27)
[2020-02-15] MEDS: DIGOXIN 0.125 MG TABLET (FP) PO SCH (11:27)
[2020-02-15] MEDS: ASPIRIN 81 MG CHEWABLE TABLETS PO SCH (11:27)
[2020-02-15] MEDS: POLYETHYLENE GLYCOL 3350 119 GM BTL PO SCH (11:28)
[2020-02-15] MEDS: AMINO ACIDS/PROTEIN HYDROLYS 30 ML LIQUID.PKT PO SCH (11:28)
[2020-02-15] MEDS: FAMOTIDINE 20 MG TABLET PO SCH ×2 (11:28→21:18)
[2020-02-15] MEDS: COLLAGENASE CLOSTRIDIUM HIST. 30 GRAMS TUBE TP SCH (11:28)
[2020-02-15] MEDS: HEPARIN NA (PORCINE) 5,000 UNITS/ML 1ML VIAL SQ SCH ×2 (11:29→21:18)
--- NOTE | 2020-02-15 11:35 | PN ---
Progress Note (short form) - Note Progress Note: s: no cp sob palps dizzy Current Medications Generic Name Dose Route Start Last Admin Trade Name Freq PRN Reason Stop Dose Admin Amino Acids 30 ml 02/11/20 10:00 02/14/20 11:47 Prosource No Carb Liquid Pkt PO 30 ml DAILY [facility] Administration Aspirin 81 mg 02/06/20 10:00 02/14/20 11:47 Asa - PO 81 mg DAILY [facility] Administration Atorvastatin Calcium 20 mg 02/05/20 22:00 02/14/20 21:38 Lipitor - PO 20 mg HS [facility] Administration Carvedilol 6.25 mg 02/14/20 19:46 02/14/20 21:38 Coreg - PO 6.25 mg BID [facility] Administration Clopidogrel Bisulfate 75 mg 02/06/20 10:00 02/14/20 11:46 Plavix - PO 75 mg DAILY [facility] Administration Collagenase 1 applic 02/06/20 10:00 02/14/20 11:47 Santyl - TP 1 applic DAILY [facility] Administration Protocol Digoxin 0.125 mg 02/06/20 10:00 02/14/20 11:45 Lanoxin - PO 0.125 mg DAILY [facility] Administration Docusate Sodium 100 mg 02/06/20 11:15 02/14/20 21:38 Colace - PO 100 mg BID [facility] Administration Famotidine 20 mg 02/05/20 22:00 02/14/20 21:38 Pepcid - PO 20 mg BID [facility] Administration Fentanyl 50 mcg 02/05/20 18:06 02/05/20 17:40 Sublimaze Injection - IVPUSH 50 mcg [id number] PRN Administration PAIN-PACU ORDER X 4 DOSES ONLY Gabapentin 300 mg 02/05/20 22:00 02/15/20 06:30 Neurontin - PO 300 mg TID [facility] Administration Heparin Sodium (Porcine) 5,000 unit 02/12/20 22:00 02/14/20 21:38 Heparin - SQ 5,000 unit BID [facility] Administration Insulin Aspart 1 vial 02/10/20 16:30 02/15/20 06:30 Novolog Vial Sliding Scale - SQ 6 units ACHS [facility] Administration Protocol Insulin Detemir 45 units 02/07/20 22:00 02/14/20 21:39 Levemir Vial SQ 45 units HS [facility] Administration Multivitamins/Minerals/Vitamin C 1 tab 02/06/20 10:00 08/23/20 11:46 Tab-A-Vit - PO 1 tab DAILY [facility] Administration Oxycodone HCl 5 mg 02/11/20 12:05 02/14/20 11:45 Roxicodone - PO 5 mg Q6H PRN Administration PAIN LEVEL 6-10 Polyethylene Glycol 17 gm 02/06/20 11:15 02/14/20 11:48 Miralax (For Daily Use) - PO 17 gm DAILY [facility] Administration Quetiapine Fumarate 50 mg 02/05/20 22:00 02/14/20 21:41 Seroquel - PO 50 mg HS [facility] Administration Sitagliptin Phosphate 100 mg 02/06/20 10:00 02/14/20 11:46 Januvia - PO 100 mg DAILY [facility] Administration Vital Signs Period Temp Pulse Resp BP Sys/Leahy Pulse Ox Last 24 Hr 98.3 F-99.0 F 85-93 16-18 136-149/78-80 95-98 Constitutional: Yes: Well Nourished, No Distress Eyes: No: Sclera Icterus HENT: No: Nasal Congestion Neck: No: Decreased ROM Respiratory: Yes: CTA Bilaterally. No: Accessory Muscle Use, Rales, Wheezes Gastrointestinal: Yes: Normal Bowel Sounds. No: Distention, Hepatomegaly, Palpable Mass, Tenderness Cardiovascular: Yes: Regular Rate and Rhythm JVD: No Carotid Bruit: No PMI: Non-Displaced Heart Sounds: Yes: S1, S2. No: Gallop Murmur: No: Systolic Murmur, Diastolic Murmur Edema: No Integumentary: No: Jaundice Neurological: Yes: Alert. No: Seizure Psychiatric: No: Agitated CBC, BMP 02/15/20 09:40 02/15/20 09:40 Assessment/Plan echo 01/2020: normal LVEF, nl RV, nl valve function. CXR: ATX vs infiltrate R base, no effusions/congestion mibi 01/2020 mod sized area of inferolateral scar, no ischemia, EF 45% preop CV eval, PAD for LE bypass: -cannot evaluate for cardiac sx's due to his mental capacity -mult RFs for CAD/cardiomyopathy including DM, prior etoh abuse, age -recent echo unremarkable - mibi shows inferolateral scar, no ischemia - continue statin, plavix as medical management for likely underlying CAD -pt on plavix, unknown indication (PAD?)--mgmt perioperatively per vascular -abnormal CXR with atx vs infiltrate R base--tx and medical optimization per hospitalist -on digoxin for unclear indication, level ok here, continue - patient is at acceptable risk for LE bypass, no further cardiac testing prior to procedure DM: -per hospitalist HTN: -bp has been very labile here, this AM is controlled -cont present meds, observe trend HPL: -cont statin
[2020-02-15 11:43] LABS: ALBUMIN 2.3 g/dl (3.4-5.0); BILIRUBIN,TOTAL 0.2 mg/dL (0.2-1); BLOOD UREA NITROGEN 30.5 mg/dL (7-18); CALCIUM 9.3 mg/dL (8.5-10.1); CREATININE 1.4 mg/dL (0.55-1.3); MAGNESIUM 2.2 mg/dL (1.8-2.4); TOT PROT 7.8 g/dl (6.4-8.2)
--- NOTE | 2020-02-15 12:58 | PN ---
Physical Exam: SUBJECTIVE: Patient seen and examined OBJECTIVE: dnr/dni per molst form dated/signed 12/23/2019 Patient is a 64 year old male with a significant past medical history of DM, schizophrenia, HTN, HLD, GERD, dementia, EtOH use disorder who had his right knee great toe amputated apx 1 month ago, presents to the ED on 02/03/2020 with right 2nd digit gangrene. At [facility] pt underwent RLE angiogram which revealed right SFA occlusion. He is being followed by vascular surgery and was scheduled for a fem-pop bypass last week, but procedure cancelled and rescheduled for 02/16/2020. covid status: negative as per serology 02/02 and 02/10/2020 Period Temp Pulse Resp BP Sys/Leahy Pulse Ox Last 24 Hr 98.3 F-99.0 F 86-93 16-18 136-149/78-80 95-98 GENERAL: The patient is awake, alert, in no acute distress. forgetful HEAD: Normal with no signs of trauma. EYES: PERRL, extraocular movements intact, sclera anicteric, conjunctiva clear. No ptosis. ENT: Ears normal, nares patent, oropharynx clear without exudates NECK: Trachea midline, full range of motion, supple. LUNGS: Breath sounds equal HEART: Regular rate and rhythm ABDOMEN: Soft, nontender, nondistended, normoactive bowel sounds EXTREMITIES: right foot dressing, for right 2nd digit gangrene. wound wrapped in aguilar. NEUROLOGICAL: Normal speech, gait not observed. PSYCH: Normal mood, normal affect. Laboratory Results - last 24 hr 02/14/20 02/14/20 02/15/20 16:41 21:33 06:07 WBC RBC Hgb Hct MCV MCH MCHC RDW Plt Count MPV Absolute Neuts (auto) Neutrophils % Lymphocytes % Monocytes % Eosinophils % Basophils % Nucleated RBC % Sodium Potassium Chloride Carbon Dioxide Anion Gap BUN Creatinine Est GFR (CKD-EPI)AfAm Est GFR (CKD-EPI)NonAf POC Glucometer 260 122 179 Random Glucose Calcium Magnesium Total Bilirubin AST ALT Alkaline Phosphatase Total Protein Albumin 02/15/20 02/15/20 02/15/20 09:40 09:40 11:31 WBC 9.3 RBC 3.70 L Hgb 9.7 L Hct 29.7 L MCV 80.3 MCH 26.3 MCHC 32.8 RDW 14.2 Plt Count 399 MPV 7.7 Absolute Neuts (auto) 6.9 Neutrophils % 73.8 Lymphocytes % 14.1 Monocytes % 8.4 Eosinophils % 3.0 Basophils % 0.7 Nucleated RBC % 0 Sodium 139 Potassium 4.2 Chloride 109 H Carbon Dioxide 21 Anion Gap 9 BUN 30.5 H Creatinine 1.4 H Est GFR (CKD-EPI)AfAm 61.97 Est GFR (CKD-EPI)NonAf 53.47 POC Glucometer 162 Random Glucose 144 H Calcium 9.3 Magnesium 2.2 Total Bilirubin 0.2 AST 10 L ALT 16 Alkaline Phosphatase 101 Total Protein 7.8 Albumin 2.3 L Active Medications Generic Name Dose Route Start Last Admin Trade Name Freq PRN Reason Stop Dose Admin Amino Acids 30 ml 02/11/20 10:00 02/15/20 11:28 Prosource No Carb Liquid Pkt PO 30 ml DAILY [facility] Administration Aspirin 81 mg 02/06/20 10:00 02/15/20 11:27 Asa - PO 81 mg DAILY [facility] Administration Atorvastatin Calcium 20 mg 02/05/20 22:00 02/14/20 21:38 Lipitor - PO 20 mg HS [facility] Administration Carvedilol 6.25 mg 02/14/20 19:46 02/15/20 11:27 Coreg - PO 6.25 mg BID [facility] Administration Clopidogrel Bisulfate 75 mg 02/06/20 10:00 02/15/20 11:27 Plavix - PO 75 mg DAILY [facility] Administration Collagenase 1 applic 02/06/20 10:00 02/15/20 11:28 Santyl - TP 1 applic DAILY [facility] Administration Protocol Digoxin 0.125 mg 02/06/20 10:00 02/15/20 11:27 Lanoxin - PO 0.125 mg DAILY [facility] Administration Docusate Sodium 100 mg 02/06/20 11:15 02/15/20 11:27 Colace - PO 100 mg BID [facility] Administration Famotidine 20 mg 02/05/20 22:00 02/15/20 11:28 Pepcid - PO 20 mg BID [facility] Administration Fentanyl 50 mcg 02/05/20 18:06 02/05/20 17:40 Sublimaze Injection - IVPUSH 50 mcg [id number] PRN Administration PAIN-PACU ORDER X 4 DOSES ONLY Gabapentin 300 mg 02/05/20 22:00 02/15/20 06:30 Neurontin - PO 300 mg TID [facility] Administration Heparin Sodium (Porcine) 5,000 unit 02/12/20 22:00 02/15/20 11:29 Heparin - SQ 5,000 unit BID [facility] Administration Insulin Aspart 1 vial 02/10/20 16:30 02/15/20 06:30 Novolog Vial Sliding Scale - SQ 6 units ACHS [facility] Administration Protocol Insulin Detemir 45 units 02/07/20 22:00 02/14/20 21:39 Levemir Vial SQ 45 units HS [facility] Administration Multivitamins/Minerals/Vitamin C 1 tab 02/06/20 10:00 02/15/20 11:27 Tab-A-Vit - PO 1 tab DAILY [facility] Administration Oxycodone HCl 5 mg 02/11/20 12:05 02/14/20 11:45 Roxicodone - PO 5 mg Q6H PRN Administration PAIN LEVEL 6-10 Polyethylene Glycol 17 gm 02/06/20 11:15 02/15/20 11:28 Miralax (For Daily Use) - PO 17 gm DAILY [facility] Administration Quetiapine Fumarate 50 mg 02/05/20 22:00 02/14/20 21:41 Seroquel - PO 50 mg HS [facility] Administration Sitagliptin Phosphate 100 mg 02/06/20 10:00 02/15/20 11:27 Januvia - PO 100 mg DAILY [facility] Administration ASSESSMENT/PLAN: Problem List - Problems (1) Diabetic foot infection Assessment/Plan: Patient has peripheral artery disease with right foot cellulitis/osteomyelitis status post right great amputation on IV antibiotic antibiotics discontinued by ID. patient is s/P RLE angiogram on 02/04 Right SFA is occluded. Pt requires a fem-pop above knee bypass, was scheduled for 02/12/2020, but rescheduled for 02/16/2020 cleared by cardiology for bypass surgery neurontin TID continue lipitor collagenase dressing to RLE Code(s): E11.628 - TYPE 2 DIABETES MELLITUS WITH OTHER SKIN COMPLICATIONS; L08.9 - LOCAL INFECTION OF THE SKIN AND SUBCUTANEOUS TISSUE, UNSP (2) Anemia Assessment/Plan: Anemia of chronic disease Hemoglobin is stable monitor CBC daily type and screen completed repeat cbc prior to surgery Code(s): D64.9 - ANEMIA, UNSPECIFIED (3) CKD (chronic kidney disease) Assessment/Plan: monitor kidney function trend intake/output and electrolytes Code(s): N18.9 - CHRONIC KIDNEY DISEASE, UNSPECIFIED (4) Congestive heart failure Assessment/Plan: Patient has normal ejection fraction, continue coreg, and digoxin, Stress test completed on 02/09/2020 no signs of volume overload Code(s): I50.9 - HEART FAILURE, UNSPECIFIED Qualifiers: Heart failure type: unspecified (5) Hypertension Assessment/Plan: labile BP currently on coreq 3.125mg bid, digoxin 0.125mg daily Code(s): I10 - ESSENTIAL (PRIMARY) HYPERTENSION (6) Uncontrolled type 2 diabetes mellitus Assessment/Plan: BGMs improved, goal is to maintain fasting bgms<180 tightened sliding scale insulin on levemir 45 units at hs Code(s): E11.65 - TYPE 2 DIABETES MELLITUS WITH HYPERGLYCEMIA (7) DVT prophylaxis Assessment/Plan: heparin bid Code(s): Z29.9 - ENCOUNTER FOR PROPHYLACTIC MEASURES, UNSPECIFIED Visit type - Emergency Visit Emergency Visit: Yes ED Registration Date: 02/03/20 Care time: The patient presented to the Emergency Department on the above date and was hospitalized for further evaluation of their emergent condition. - New Patient This patient is new to me today: No - Critical Care Critical Care patient: No - Discharge Referral Referred to [facility] Med P.C.: No
--- NOTE | 2020-02-15 16:25 | PN ---
Progress Note (short form) - Note Progress Note: Vascular surgery Pt for right fem pop ptfe bypass on at 8am. Please continue medical management. Cleared by cardiology Will hold PRBC for surgery Thien Pineda DO
[2020-02-15] MEDS ORDERED: QUEtiapine FUMARATE 25 MG TABLET ONE (21:09)
[2020-02-15] MEDS: QUEtiapine FUMARATE 50 MG TABLET PO SCH (21:18)
[2020-02-15] MEDS: ATORVASTATIN CA 20 MG TABLET (FP) PO SCH (21:18)
[2020-02-15] MEDS: INSULIN (LEVEMIR) 100 UNITS/ML UNITS SQ SCH (21:18)
[2020-02-16] MEDS: INSULIN SLIDING SCALE (NOVOLOG) 1 VIAL SQ SCH ×4 (06:30→23:21)
[2020-02-16] MEDS: GABAPENTIN 300 MG CAPSULE PO SCH ×3 (06:30→23:16)
--- NOTE | 2020-02-16 08:43 | PN ---
Progress Note, Physician Chief Complaint: Seen as examined in bed. Pending right fem pop ptfe bypass on at 8am with Dr Pineda. No complaints offered. History of Present Illness: Patient is a 64 year old male with a significant past medical history of DM, schizophrenia, HTN, HLD, GERD, dementia, EtOH use disorder who had his right knee great toe amputated apx 1 month ago, presents to the ED on 02/03/2020 with right 2nd digit gangrene. At [facility] pt underwent RLE angiogram which revealed right SFA occlusion. He is being followed by vascular surgery and was scheduled for a fem-pop bypass last week, but procedure cancelled and rescheduled for 02/16/2020. - Current Medication List Current Medications: Active Medications Amino Acids (Prosource No Carb Liquid Pkt) 30 ml PO DAILY [facility] Last Admin: 02/15/20 11:28 Dose: 30 ml Documented by: Aspirin (Asa -) 81 mg PO DAILY [facility] Last Admin: 02/15/20 11:27 Dose: 81 mg Documented by: Atorvastatin Calcium (Lipitor -) 20 mg PO HS [facility] Last Admin: 02/15/20 21:18 Dose: 20 mg Documented by: Carvedilol (Coreg -) 6.25 mg PO BID [facility] Last Admin: 02/15/20 21:18 Dose: 6.25 mg Documented by: Clopidogrel Bisulfate (Plavix -) 75 mg PO DAILY [facility] Last Admin: 02/15/20 11:27 Dose: 75 mg Documented by: Collagenase (Santyl -) 1 applic TP DAILY [facility]; Protocol Last Admin: 02/15/20 11:28 Dose: 1 applic Documented by: Digoxin (Lanoxin -) 0.125 mg PO DAILY [facility] Last Admin: 02/15/20 11:27 Dose: 0.125 mg Documented by: Docusate Sodium (Colace -) 100 mg PO BID [facility] Last Admin: 02/15/20 21:18 Dose: 100 mg Documented by: Famotidine (Pepcid -) 20 mg PO BID [facility] Last Admin: 02/15/20 21:18 Dose: 20 mg Documented by: Fentanyl (Sublimaze Injection -) 50 mcg IVPUSH [id number] PRN PRN Reason: PAIN-PACU ORDER X 4 DOSES ONLY Last Admin: 02/05/20 17:40 Dose: 50 mcg Documented by: Gabapentin (Neurontin -) 300 mg PO TID [facility] Last Admin: 02/16/20 06:30 Dose: 300 mg Documented by: Heparin Sodium (Porcine) (Heparin -) 5,000 unit SQ BID [facility] Last Admin: 02/15/20 21:18 Dose: 5,000 unit Documented by: Insulin Aspart (Novolog Vial Sliding Scale -) 1 vial SQ ACHS [facility]; Protocol Last Admin: 02/16/20 06:30 Dose: Not Given Documented by: Insulin Detemir (Levemir Vial) [address] [facility] Last Admin: 02/15/20 21:18 Dose: 45 units Documented by: Multivitamins/Minerals/Vitamin C (Tab-A-Vit -) 1 tab PO DAILY [facility] Last Admin: 02/15/20 11:27 Dose: 1 tab Documented by: Oxycodone HCl (Roxicodone -) 5 mg PO Q6H PRN PRN Reason: PAIN LEVEL 6-10 Last Admin: 02/14/20 11:45 Dose: 5 mg Documented by: Polyethylene Glycol (Miralax (For Daily Use) -) 17 gm PO DAILY [facility] Last Admin: 02/15/20 11:28 Dose: 17 gm Documented by: Quetiapine Fumarate (Seroquel -) [address] [facility] Last Admin: 02/15/20 21:18 Dose: 50 mg Documented by: Sitagliptin Phosphate (Januvia -) 100 mg PO DAILY [facility] Last Admin: 02/15/20 11:27 Dose: 100 mg Documented by: - Objective Vital Signs: Vital Signs Temperature 98.3 F 02/16/20 06:00 Pulse Rate 79 02/16/20 06:00 Respiratory Rate 17 02/16/20 06:00 Blood Pressure 139/78 02/16/20 06:00 O2 Sat by Pulse Oximetry (%) 98 02/16/20 06:00 Constitutional: Yes: Well Nourished, No Distress, Calm Eyes: Yes: WNL, Conjunctiva Clear HENT: Yes: WNL, Atraumatic, Normocephalic Neck: Yes: WNL, Supple, Trachea Midline Cardiovascular: Yes: WNL, Regular Rate and Rhythm Respiratory: Yes: WNL, Regular, CTA Bilaterally Gastrointestinal: Yes: WNL, Normal Bowel Sounds, Soft ...Rectal Exam: Yes: Deferred Genitourinary: Yes: WNL Breast(s): Yes: WNL Musculoskeletal: Yes: WNL Extremities: Yes: Other (ight foot dressing, for right 2nd digit gangrene. wound wrapped) Edema: No Peripheral Pulses WNL: Yes Peripheral Pulses: Left Doralis Pedis: 0 (drsg in place), Right Dorsalis Pedis: 0 (drsg in place) Integumentary: Yes: Other (BL drsg to LE) Neurological: Yes: WNL, Alert, Oriented ...Motor Strength: WNL Psychiatric: Yes: WNL Labs: CBC, BMP 02/15/20 09:40 02/15/20 09:40 INR, PTT INR 1.20 (0.83-1.09) H 02/11/20 22:40 - ....Imaging Other: Report Reviewed (RLE angiogram which revealed right SFA occlusion.) Problem List - Problems (1) Schizophrenia Assessment/Plan: c/w quetiapine supportive care Code(s): F20.9 - SCHIZOPHRENIA, UNSPECIFIED (2) HLD (hyperlipidemia) Assessment/Plan: c/w statin Code(s): E78.5 - HYPERLIPIDEMIA, UNSPECIFIED (3) GERD (gastroesophageal reflux disease) Assessment/Plan: c/w pepcid Code(s): K21.9 - GASTRO-ESOPHAGEAL REFLUX DISEASE WITHOUT ESOPHAGITIS (4) Dementia Assessment/Plan: supportive care fall precautions Code(s): F03.90 - UNSPECIFIED DEMENTIA WITHOUT BEHAVIORAL DISTURBANCE (5) Right great toe amputee Assessment/Plan: great toe amputated apx 1 month ago, vascular sx following Code(s): Z89.411 - ACQUIRED ABSENCE OF RIGHT GREAT TOE (6) Gangrene of toe of right foot Assessment/Plan: plan for OR on thurs Code(s): I96 - GANGRENE, NOT ELSEWHERE CLASSIFIED (7) Prophylactic measure Assessment/Plan: FEN Fluids: adequate PO intake Electrolytes: monitor & replete as needed Nutrition: diabetic diet DVT moderate risk sq heparin, plavix , asa Dispo Maintain as inpatient full code discharge planning back to [facility] facility i Code(s): Z29.9 - ENCOUNTER FOR PROPHYLACTIC MEASURES, UNSPECIFIED (8) COVID-19 ruled out by laboratory testing Assessment/Plan: neg pcr Code(s): Z03.818 - ENCNTR FOR OBS FOR SUSP EXPSR TO OTH BIOLG AGENTS RULED OUT (9) Anemia Assessment/Plan: Anemia of chronic disease h/h is stable monitor CBC daily type and screen completed repeat cbc prior to surgery Code(s): D64.9 - ANEMIA, UNSPECIFIED (10) CKD (chronic kidney disease) Assessment/Plan: cr 1,4 avloid nephrotoxic agents monitor kidney function strict I/Os Code(s): N18.9 - CHRONIC KIDNEY DISEASE, UNSPECIFIED (11) Congestive heart failure Assessment/Plan: normal ejection fraction c/w coreg/ digoxin, Stress test completed on 02/09/2020 appears euvolemic Code(s): I50.9 - HEART FAILURE, UNSPECIFIED Qualifiers: Heart failure type: unspecified (12) Diabetic foot infection Assessment/Plan: vascular following OR on Code(s): E11.628 - TYPE 2 DIABETES MELLITUS WITH OTHER SKIN COMPLICATIONS; L08.9 - LOCAL INFECTION OF THE SKIN AND SUBCUTANEOUS TISSUE, UNSP (13) Hypertension Assessment/Plan: abile BP currently on coreq 3.125mg bid, digoxin 0.125mg daily Code(s): I10 - ESSENTIAL (PRIMARY) HYPERTENSION Visit type - Emergency Visit Emergency Visit: Yes ED Registration Date: 02/03/20 Care time: The patient presented to the Emergency Department on the above date and was hospitalized for further evaluation of their emergent condition. - New Patient This patient is new to me today: Yes Date on this admission: 02/16/20 - Critical Care Critical Care patient: No - Discharge Referral Referred to [facility] Med P.C.: No
[2020-02-16 08:58] LABS: BASO % 0.7 % (0-2.0); EOS % 2.6 % (0-4.5); HEMATOCRIT 30.3 % (35.4-49); LYMPH % 15.1 % (8-40); MCH 26.6 pg (25.7-33.7); MCHC 32.9 g/dl (32.0-35.9); MEAN PLT VOLUME 7.8 fl (7.5-11.1); MONO % 7.4 % (3.8-10.2); NEUT % 74.2 % (42.8-82.8); PLATELET COUNT 416 K/MM3 (134-434); RBC 3.74 M/mm3 (4.00-5.60); RDW 14.7 % (11.9-15.9); WHITE BLOOD COUNT 9.7 K/mm3 (4.0-10.0)
[2020-02-16 09:02] LABS: INR 1.16 (0.83-1.09); PROTHROMBIN TIME (PATIENT) 13.7 SEC (9.7-13.0)
[2020-02-16 09:35] LABS: ALBUMIN 2.3 g/dl (3.4-5.0); BILIRUBIN,TOTAL 0.2 mg/dL (0.2-1); BLOOD UREA NITROGEN 30.6 mg/dL (7-18); CALCIUM 9.6 mg/dL (8.5-10.1); CREATININE 1.3 mg/dL (0.55-1.3); POTASSIUM 4.4 mmol/L (3.5-5.1)
[2020-02-16] MEDS: AMINO ACIDS/PROTEIN HYDROLYS 30 ML LIQUID.PKT PO SCH (10:09)
[2020-02-16] MEDS: sitaGLIPtin PHOSPHATE 50 MG TABLET PO SCH (10:10)
[2020-02-16] MEDS: CLOPIDOGREL BISULFATE 75 MG TABLET (FP) PO SCH (10:10)
[2020-02-16] MEDS: DOCUSATE SODIUM 100 MG CAPSULE (FP) PO SCH ×2 (10:10→23:17)
[2020-02-16] MEDS: FAMOTIDINE 20 MG TABLET PO SCH ×2 (10:10→23:19)
[2020-02-16] MEDS: CARVEDILOL 6.25 MG TABLET (FP) PO SCH ×2 (10:10→23:19)
[2020-02-16] MEDS: MULTIVITAMINS (DAILY MVI) TABLET (FP) PO SCH (10:10)
[2020-02-16] MEDS: ASPIRIN 81 MG CHEWABLE TABLETS PO SCH (10:10)
[2020-02-16] MEDS: DIGOXIN 0.125 MG TABLET (FP) PO SCH (10:12)
[2020-02-16] MEDS: POLYETHYLENE GLYCOL 3350 119 GM BTL PO SCH (10:13)
[2020-02-16] MEDS: COLLAGENASE CLOSTRIDIUM HIST. 30 GRAMS TUBE TP SCH (10:17)
--- NOTE | 2020-02-16 12:18 | PN ---
Progress Note (short form) - Note Progress Note: s: no cp sob palps dizzy Current Medications Generic Name Dose Route Start Last Admin Trade Name Freq PRN Reason Stop Dose Admin Amino Acids 30 ml 02/11/20 10:00 02/16/20 10:09 Prosource No Carb Liquid Pkt PO 30 ml DAILY [facility] Administration Aspirin 81 mg 02/06/20 10:00 02/16/20 10:10 Asa - PO 81 mg DAILY [facility] Administration Atorvastatin Calcium 20 mg 02/05/20 22:00 02/15/20 21:18 Lipitor - PO 20 mg HS [facility] Administration Carvedilol 6.25 mg 02/14/20 19:46 02/16/20 10:10 Coreg - PO 6.25 mg BID [facility] Administration Clopidogrel Bisulfate 75 mg 02/06/20 10:00 02/16/20 10:10 Plavix - PO 75 mg DAILY [facility] Administration Collagenase 1 applic 02/06/20 10:00 02/16/20 10:17 Santyl - TP 1 applic DAILY [facility] Administration Protocol Digoxin 0.125 mg 02/06/20 10:00 02/16/20 10:12 Lanoxin - PO 0.125 mg DAILY [facility] Administration Docusate Sodium 100 mg 02/06/20 11:15 02/16/20 10:10 Colace - PO 100 mg BID [facility] Administration Famotidine 20 mg 02/05/20 22:00 02/16/20 10:10 Pepcid - PO 20 mg BID [facility] Administration Fentanyl 50 mcg 02/05/20 18:06 02/05/20 17:40 Sublimaze Injection - IVPUSH 50 mcg [id number] PRN Administration PAIN-PACU ORDER X 4 DOSES ONLY Gabapentin 300 mg 02/05/20 22:00 02/16/20 06:30 Neurontin - PO 300 mg TID [facility] Administration Heparin Sodium (Porcine) 5,000 unit 02/12/20 22:00 02/15/20 21:18 Heparin - SQ 5,000 unit BID [facility] Administration Insulin Aspart 1 vial 02/10/20 16:30 02/16/20 06:30 Novolog Vial Sliding Scale - SQ Not Given ACHS [facility] Protocol Insulin Detemir 45 units 02/07/20 22:00 02/15/20 21:18 Levemir Vial SQ 45 units HS [facility] Administration Multivitamins/Minerals/Vitamin C 1 tab 02/06/20 10:00 02/16/20 10:10 Tab-A-Vit - PO 1 tab DAILY [facility] Administration Oxycodone HCl 5 mg 02/11/20 12:05 02/14/20 11:45 Roxicodone - PO 5 mg Q6H PRN Administration PAIN LEVEL 6-10 Polyethylene Glycol 17 gm 02/06/20 11:15 02/16/20 10:13 Miralax (For Daily Use) - PO 17 gm DAILY [facility] Administration Quetiapine Fumarate 50 mg 02/05/20 22:00 02/15/20 21:18 Seroquel - PO 50 mg HS [facility] Administration Sitagliptin Phosphate 100 mg 02/06/20 10:00 02/16/20 10:10 Januvia - PO 100 mg DAILY [facility] Administration Vital Signs Period Temp Pulse Resp BP Sys/Leahy Pulse Ox Last 24 Hr 97.8 F-98.8 F 79-87 16-18 139-147/78-87 96-98 Constitutional: Yes: Well Nourished, No Distress Eyes: No: Sclera Icterus HENT: No: Nasal Congestion Neck: No: Decreased ROM Respiratory: Yes: CTA Bilaterally. No: Accessory Muscle Use, Rales, Wheezes Gastrointestinal: Yes: Normal Bowel Sounds. No: Distention, Hepatomegaly, Palpable Mass, Tenderness Cardiovascular: Yes: Regular Rate and Rhythm JVD: No Carotid Bruit: No PMI: Non-Displaced Heart Sounds: Yes: S1, S2. No: Gallop Murmur: No: Systolic Murmur, Diastolic Murmur Edema: No Integumentary: No: Jaundice Neurological: Yes: Alert. No: Seizure Psychiatric: No: Agitated Assessment/Plan echo 01/2020: normal LVEF, nl RV, nl valve function. CXR: ATX vs infiltrate R base, no effusions/congestion mibi 01/2020 mod sized area of inferolateral scar, no ischemia, EF 45% preop CV eval, PAD for LE bypass: -cannot evaluate for cardiac sx's due to his mental capacity -mult RFs for CAD/cardiomyopathy including DM, prior etoh abuse, age -recent echo unremarkable - mibi shows inferolateral scar, no ischemia - continue statin, plavix as medical management for likely underlying CAD -pt on plavix, unknown indication (PAD?)--mgmt perioperatively per vascular -abnormal CXR with atx vs infiltrate R base--tx and medical optimization per hospitalist -on digoxin for unclear indication, level ok here, continue - patient is at acceptable risk for LE bypass, no further cardiac testing prior to procedure - planned 02/17 DM: -per hospitalist HTN: -bp has been very labile here, reasonably controlled now -cont present meds, observe trend HPL: -cont statin
--- NOTE | 2020-02-16 14:02 | OP ---
DATE OF OPERATION: 02/05/2020 PREOPERATIVE DIAGNOSIS: Right foot gangrene. POSTOPERATIVE DIAGNOSIS: Right foot gangrene. PROCEDURE: CO2 aortogram, right lower extremity angiogram. SURGEON: Thien Osman DO ANESTHESIA: Fractional. BLOOD LOSS: 20 mL INDICATIONS: Patient is a 64-year-old male that was seen in prison last week. He had an operation for his right lower extremity done at [facility]. On that admission he had a partial right foot amputation of his right great toe and his ray which have been nonhealing and he was sent to the prison in that way. Since then his foot has progressed and he is now having gangrene of his 2nd toe, and the patient was transferred to [facility]. It was decided that he would need imaging in order to figure out what kind of flow he has to his right foot. Patient has an elevated creatinine and we decided he would need a CO2 angiogram. Patient's family was consented to the procedure understanding all risks, benefits and alternatives, and the patient was then brought to the operating room. Patient was COVID-19 negative. DESCRIPTION OF PROCEDURE: Patient was brought to the operating room, laid on the operating table in the supine manner and the area of the left and right groin was prepped and draped in a sterile surgical manner. We then injected 10 mL of lidocaine 1% over the left common femoral artery. We then went ahead and punctured the left common femoral artery using a micropuncture needle. Micropuncture wire was inserted. Micropuncture sheath was inserted and a traditional 5-Yi sheath was inserted. We then placed a 0.035 floppy guidewire up into the aorta followed by Omni Flush catheter. We then shot a CO2 aortogram showing that the aorta and the iliac arteries were without any disease. We then went ahead and went up and over using a 0.035 floppy guidewire to the right common femoral artery and the Omni Flush catheter followed. We then shot our CO2 aortogram showing that the common femoral artery, the profunda were patent, but the SFA was occluded from its origin and comes back in his distal thigh. The patient's popliteal artery is patent and patient has a 2-vessel runoff in the form of AT and PT into the foot. At this point we realized the reason why the patient's right foot is not healing is because the right SFA is closed from its origin to the distal thigh. At this juncture the best operation for the patient would be a right femoropopliteal bypass for long-term longevity and in order to make sure that the patient does not lose his leg and for limb salvage. So, at this point we decided that no more intervention was needed and we took out our Omni Flush catheter and the sheath from the left common femoral artery. Pressure was held for 5 minutes. Afterward there was no more bleeding. The area was wet and dried and Dermabond was placed. Patient tolerated the procedure with no complications. Patient was transferred to PACU in stable condition. We will now obtain cardiology clearance for a bypass procedure. THIEN OSMAN DO [id number]
--- NOTE | 2020-02-16 15:53 | OP ---
DATE OF OPERATION: 02/05/2020 ADDENDUM Physician comment - Previously I dictated that the patient had a CO2 aortogram, right lower extremity angiogram. Please add to the procedure: Excisional debridement skin and subcutaneous tissue right foot. After the angiogram the right foot was prepped and draped with Betadine in a sterile surgical fashion. We then injected 10 mL of lidocaine 1% in the area. We then went ahead and used a No. 15 blade and excised all the necrotic tissue on the right foot at the site of the amputation site including all of the stitches that were in place. We excised the skin, subcutaneous tissue getting down to healthy tissue. We then irrigated the wound copiously. Xeroform was placed and patient will get Santyl on the floor. Then 4 x 4's, Kerlix were placed. Patient tolerated the procedure with no complications. SULEMA OSMAN DO [id number]
[2020-02-16] MEDS ORDERED: QUEtiapine FUMARATE 25 MG TABLET ONE (23:01)
[2020-02-16] MEDS: ATORVASTATIN CA 20 MG TABLET (FP) PO SCH (23:16)
[2020-02-16] MEDS: QUEtiapine FUMARATE 50 MG TABLET PO SCH (23:17)
[2020-02-16] MEDS: INSULIN (LEVEMIR) 100 UNITS/ML UNITS SQ SCH (23:20)
[2020-02-17] MEDS: INSULIN SLIDING SCALE (NOVOLOG) 1 VIAL SQ SCH ×5 (06:18→22:00)
[2020-02-17] MEDS: GABAPENTIN 300 MG CAPSULE PO SCH ×3 (06:18→21:57)
--- NOTE | 2020-02-17 07:45 | SPA.PREOP ---
- PRE-OP NOTE Dx: PAD. RLE gangrene Planned Procedure: RLE fem-pop bypass Surgeon: Thien Pineda Last Vital Signs Temp Pulse Resp BP Pulse Ox 98.1 F 9 L 18 149/83 97 02/17/20 06:00 02/17/20 06:00 02/17/20 02:40 02/17/20 06:00 02/17/20 06:00 CBC, BMP 02/16/20 08:06 02/16/20 08:06 INR, PTT INR 1.16 (0.83-1.09) H 02/16/20 08:06 Blood Type Blood Type O POSITIVE 02/16/20 08:06 Serology Tests 02/03/20 02/10/20 02/12/20 17:30 10:35 14:00 COVID-19 (LESLIE) Not detected Not detected Not detected - IMAGING Chest X-ray: Report Reviewed - ASSESSMENT/PLAN 1. NPO after midnight except po meds 2. GI/DVT PPX 3. Medical optimization / clearance 4. Cardiology cleared for surgery 4. Consent to be obtained by surgeon after risks, benefits and alternatives discussed with patient and or Health Care Proxy. Problem List - Problems (1) PAD (peripheral artery disease) Code(s): I73.9 - PERIPHERAL VASCULAR DISEASE, UNSPECIFIED (2) CKD stage 3 due to type 2 diabetes mellitus Code(s): E11.22 - TYPE 2 DIABETES MELLITUS W DIABETIC CHRONIC KIDNEY DISEASE; N18.3 - CHRONIC KIDNEY DISEASE, STAGE 3 (MODERATE) (3) COVID-19 ruled out by laboratory testing Code(s): Z03.818 - ENCNTR FOR OBS FOR SUSP EXPSR TO OTH BIOLG AGENTS RULED OUT (4) Gangrene of toe of right foot Code(s): I96 - GANGRENE, NOT ELSEWHERE CLASSIFIED (5) Hypertension Code(s): I10 - ESSENTIAL (PRIMARY) HYPERTENSION Visit type - Case Type Case Type: ED Admission - Emergency Emergency Visit: Yes ED Registration Date: 02/03/20 Care time: The patient presented to the Emergency Department on the above date and was hospitalized for further evaluation of their emergent condition.
--- NOTE | 2020-02-17 08:50 | PN ---
Progress Note, Physician Chief Complaint: Seen as examined in bed. Pending right fem pop bypass tomorrow at 8am with Dr Pineda. No complaints offered. History of Present Illness: Patient is a 64 year old male with a significant past medical history of DM, schizophrenia, HTN, HLD, GERD, dementia, EtOH use disorder who had his right knee great toe amputated apx 1 month ago, presents to the ED on 02/03/2020 with right 2nd digit gangrene. At [facility] pt underwent RLE angiogram which revealed right SFA occlusion. He is being followed by vascular surgery and was scheduled for a fem-pop bypass last week, but procedure cancelled and rescheduled for 02/16/2020. - Current Medication List Current Medications: Active Medications Amino Acids (Prosource No Carb Liquid Pkt) 30 ml PO DAILY [facility] Last Admin: 02/16/20 10:09 Dose: 30 ml Documented by: Aspirin (Asa -) 81 mg PO DAILY [facility] Last Admin: 02/16/20 10:10 Dose: 81 mg Documented by: Atorvastatin Calcium (Lipitor -) 20 mg PO HS [facility] Last Admin: 02/16/20 23:16 Dose: 20 mg Documented by: Carvedilol (Coreg -) 6.25 mg PO BID [facility] Last Admin: 02/16/20 23:19 Dose: 6.25 mg Documented by: Clopidogrel Bisulfate (Plavix -) 75 mg PO DAILY [facility] Last Admin: 02/16/20 10:10 Dose: 75 mg Documented by: Collagenase (Santyl -) 1 applic TP DAILY [facility]; Protocol Last Admin: 02/16/20 10:17 Dose: 1 applic Documented by: Digoxin (Lanoxin -) 0.125 mg PO DAILY [facility] Last Admin: 02/16/20 10:12 Dose: 0.125 mg Documented by: Docusate Sodium (Colace -) 100 mg PO BID [facility] Last Admin: 02/16/20 23:17 Dose: 100 mg Documented by: Famotidine (Pepcid -) 20 mg PO BID [facility] Last Admin: 02/16/20 23:19 Dose: 20 mg Documented by: Fentanyl (Sublimaze Injection -) 50 mcg IVPUSH [id number] PRN PRN Reason: PAIN-PACU ORDER X 4 DOSES ONLY Last Admin: 02/05/20 17:40 Dose: 50 mcg Documented by: Gabapentin (Neurontin -) 300 mg PO TID [facility] Last Admin: 02/17/20 06:18 Dose: 300 mg Documented by: Heparin Sodium (Porcine) (Heparin -) 5,000 unit SQ BID [facility] Last Admin: 02/15/20 21:18 Dose: 5,000 unit Documented by: Insulin Aspart (Novolog Vial Sliding Scale -) 1 vial SQ [facility]; Protocol Last Admin: 02/17/20 07:07 Dose: 8 units Documented by: Insulin Detemir (Levemir Vial) 45 units SQ [facility] Last Admin: 02/16/20 23:20 Dose: 45 units Documented by: Multivitamins/Minerals/Vitamin C (Tab-A-Vit -) 1 tab PO DAILY [facility] Last Admin: 02/16/20 10:10 Dose: 1 tab Documented by: Oxycodone HCl (Roxicodone -) 5 mg PO Q6H PRN PRN Reason: PAIN LEVEL 6-10 Last Admin: 02/14/20 11:45 Dose: 5 mg Documented by: Polyethylene Glycol (Miralax (For Daily Use) -) 17 gm PO DAILY [facility] Last Admin: 02/16/20 10:13 Dose: 17 gm Documented by: Quetiapine Fumarate (Seroquel -) 50 mg PO [facility] Last Admin: 02/16/20 23:17 Dose: 50 mg Documented by: Sitagliptin Phosphate (Januvia -) 100 mg PO DAILY [facility] Last Admin: 02/16/20 10:10 Dose: 100 mg Documented by: - Objective Vital Signs: Vital Signs Temperature 98.1 F 02/17/20 06:00 Pulse Rate 9 L 02/17/20 06:00 Respiratory Rate 18 02/17/20 02:40 Blood Pressure 149/83 02/17/20 06:00 O2 Sat by Pulse Oximetry (%) 97 02/17/20 06:00 Additional Findings/Remarks: Constitutional: Yes: Well Nourished, No Distress, Calm Eyes: Yes: WNL, Conjunctiva Clear HENT: Yes: WNL, Atraumatic, Normocephalic Neck: Yes: WNL, Supple, Trachea Midline Cardiovascular: Yes: WNL, Regular Rate and Rhythm Respiratory: Yes: WNL, Regular, CTA Bilaterally Gastrointestinal: Yes: WNL, Normal Bowel Sounds, Soft ...Rectal Exam: Yes: Deferred Genitourinary: Yes: WNL Breast(s): Yes: WNL Musculoskeletal: Yes: WNL Extremities: Yes: Other (right foot dressing, for right 2nd digit gangrene. wo und wrapped) Edema: No Peripheral Pulses WNL: Yes Peripheral Pulses: Left Doralis Pedis: 0 (drsg in place), Right Dorsalis Pedis: 0 (drsg in place) Integumentary: Yes: Other (BL drsg to LE) Neurological: Yes: WNL, Alert, Oriented ...Motor Strength: WNL Psychiatric: Yes: WNL Labs: CBC, BMP 02/16/20 08:06 02/16/20 08:06 INR, PTT INR 1.16 (0.83-1.09) H 02/16/20 08:06 - ....Imaging Cat Scan: Report Reviewed Problem List - Problems (1) Schizophrenia Assessment/Plan: c/w quetiapine supportive care Code(s): F20.9 - SCHIZOPHRENIA, UNSPECIFIED (2) HLD (hyperlipidemia) Assessment/Plan: c/w statin Code(s): E78.5 - HYPERLIPIDEMIA, UNSPECIFIED (3) GERD (gastroesophageal reflux disease) Assessment/Plan: c/w pepcid Code(s): K21.9 - GASTRO-ESOPHAGEAL REFLUX DISEASE WITHOUT ESOPHAGITIS (4) Dementia Assessment/Plan: supportive care fall precautions Code(s): F03.90 - UNSPECIFIED DEMENTIA WITHOUT BEHAVIORAL DISTURBANCE (5) Right great toe amputee Assessment/Plan: great toe amputated apx 1 month ago, vascular sx following Code(s): Z89.411 - ACQUIRED ABSENCE OF RIGHT GREAT TOE (6) Gangrene of toe of right foot Assessment/Plan: plan for OR tomorrow Code(s): I96 - GANGRENE, NOT ELSEWHERE CLASSIFIED (7) Prophylactic measure Assessment/Plan: FEN Fluids: adequate PO intake Electrolytes: monitor & replete as needed Nutrition: diabetic diet DVT moderate risk sq heparin, plavix , asa Dispo Maintain as inpatient full code discharge planning back to [facility] facility i Code(s): Z29.9 - ENCOUNTER FOR PROPHYLACTIC MEASURES, UNSPECIFIED (8) COVID-19 ruled out by laboratory testing Assessment/Plan: neg pcr Code(s): Z03.818 - ENCNTR FOR OBS FOR SUSP EXPSR TO OTH BIOLG AGENTS RULED OUT (9) Anemia Assessment/Plan: Anemia of chronic disease h/h is stable monitor CBC daily type and screen completed repeat cbc ordred for am Code(s): D64.9 - ANEMIA, UNSPECIFIED (10) CKD (chronic kidney disease) Assessment/Plan: cr 1.2 avoid nephrotoxic agents monitor kidney function strict I/Os Code(s): N18.9 - CHRONIC KIDNEY DISEASE, UNSPECIFIED (11) Congestive heart failure Assessment/Plan: normal ejection fraction c/w coreg/ digoxin, Stress test completed on 02/09/2020 appears euvolemic Code(s): I50.9 - HEART FAILURE, UNSPECIFIED Qualifiers: Heart failure type: unspecified (12) Diabetic foot infection Assessment/Plan: vascular following OR tmrw Code(s): E11.628 - TYPE 2 DIABETES MELLITUS WITH OTHER SKIN COMPLICATIONS; L08.9 - LOCAL INFECTION OF THE SKIN AND SUBCUTANEOUS TISSUE, UNSP (13) Hypertension Assessment/Plan: BP better controlled currently on coreq 3.125mg bid, digoxin 0.125mg daily Code(s): I10 - ESSENTIAL (PRIMARY) HYPERTENSION Visit type - Emergency Visit Emergency Visit: Yes ED Registration Date: 02/03/20 Care time: The patient presented to the Emergency Department on the above date and was hospitalized for further evaluation of their emergent condition. - New Patient This patient is new to me today: No - Critical Care Critical Care patient: No - Discharge Referral Referred to [facility] Med P.C.: No
[2020-02-17 09:10] LABS: BASO % 0.5 % (0-2.0); EOS % 2.9 % (0-4.5); HEMATOCRIT 29.1 % (35.4-49); HEMOGLOBIN 9.7 GM/dL (11.7-16.9); LYMPH % 16.2 % (8-40); MCH 26.8 pg (25.7-33.7); MCHC 33.3 g/dl (32.0-35.9); MEAN CELL VOLUME 80.3 fl (80-96); MEAN PLT VOLUME 7.8 fl (7.5-11.1); MONO % 7.9 % (3.8-10.2); NEUT % 72.5 % (42.8-82.8); PLATELET COUNT 373 K/MM3 (134-434); RBC 3.62 M/mm3 (4.00-5.60); RDW 14.5 % (11.9-15.9); WHITE BLOOD COUNT 9.1 K/mm3 (4.0-10.0)
[2020-02-17 09:12] LABS: INR 1.14 (0.83-1.09); PROTHROMBIN TIME (PATIENT) 13.5 SEC (9.7-13.0)
[2020-02-17 09:39] LABS: ALBUMIN 2.2 g/dl (3.4-5.0); BILIRUBIN,TOTAL 0.2 mg/dL (0.2-1); BLOOD UREA NITROGEN 28.5 mg/dL (7-18); CALCIUM 9.1 mg/dL (8.5-10.1); CREATININE 1.2 mg/dL (0.55-1.3); POTASSIUM 3.7 mmol/L (3.5-5.1); TOT PROT 7.6 g/dl (6.4-8.2)
[2020-02-17] MEDS ORDERED: POTASSIUM CHLORIDE TABS 20 MEQ TABLET.ER (FP) PO ONE (09:41)
[2020-02-17] MEDS: ASPIRIN 81 MG CHEWABLE TABLETS PO SCH (10:12)
[2020-02-17] MEDS: CARVEDILOL 6.25 MG TABLET (FP) PO SCH ×2 (10:12→21:57)
[2020-02-17] MEDS: DOCUSATE SODIUM 100 MG CAPSULE (FP) PO SCH ×2 (10:12→21:57)
[2020-02-17] MEDS: DIGOXIN 0.125 MG TABLET (FP) PO SCH (10:13)
[2020-02-17] MEDS: HEPARIN NA (PORCINE) 5,000 UNITS/ML 1ML VIAL SQ SCH ×2 (10:13→21:58)
[2020-02-17] MEDS: POLYETHYLENE GLYCOL 3350 119 GM BTL PO SCH (10:14)
[2020-02-17] MEDS: FAMOTIDINE 20 MG TABLET PO SCH ×2 (10:14→21:58)
[2020-02-17] MEDS: CLOPIDOGREL BISULFATE 75 MG TABLET (FP) PO SCH (10:14)
[2020-02-17] MEDS: AMINO ACIDS/PROTEIN HYDROLYS 30 ML LIQUID.PKT PO SCH (10:15)
[2020-02-17] MEDS: COLLAGENASE CLOSTRIDIUM HIST. 30 GRAMS TUBE TP SCH (10:15)
[2020-02-17] MEDS: MULTIVITAMINS (DAILY MVI) TABLET (FP) PO SCH (10:15)
[2020-02-17] MEDS: sitaGLIPtin PHOSPHATE 50 MG TABLET PO SCH (10:16)
--- NOTE | 2020-02-17 13:12 | PN ---
Progress Note (short form) - Note Progress Note: s: no cp sob palps dizzy Current Medications Generic Name Dose Route Start Last Admin Trade Name Freq PRN Reason Stop Dose Admin Amino Acids 30 ml 02/11/20 10:00 02/17/20 10:15 Prosource No Carb Liquid Pkt PO 30 ml DAILY HUGO Administration Aspirin 81 mg 02/06/20 10:00 02/17/20 10:12 Asa - PO 81 mg DAILY HUGO Administration Atorvastatin Calcium 20 mg 02/05/20 22:00 02/16/20 23:16 Lipitor - PO 20 mg HS HUGO Administration Carvedilol 6.25 mg 02/14/20 19:46 02/17/20 10:12 Coreg - PO 6.25 mg BID HUGO Administration Clopidogrel Bisulfate 75 mg 02/06/20 10:00 02/17/20 10:14 Plavix - PO 75 mg DAILY HUGO Administration Collagenase 1 applic 02/06/20 10:00 02/17/20 10:15 Santyl - TP 1 applic DAILY HUGO Administration Protocol Digoxin 0.125 mg 02/06/20 10:00 02/17/20 10:13 Lanoxin - PO 0.125 mg DAILY HUGO Administration Docusate Sodium 100 mg 02/06/20 11:15 02/17/20 10:12 Colace - PO 100 mg BID HUGO Administration Famotidine 20 mg 02/05/20 22:00 02/17/20 10:14 Pepcid - PO 20 mg BID HUGO Administration Fentanyl 50 mcg 02/05/20 18:06 02/05/20 17:40 Sublimaze Injection - IVPUSH 50 mcg [id number] PRN Administration PAIN-PACU ORDER X 4 DOSES ONLY Gabapentin 300 mg 02/05/20 22:00 02/17/20 06:18 Neurontin - PO 300 mg TID HUGO Administration Heparin Sodium (Porcine) 5,000 unit 02/12/20 22:00 02/17/20 10:13 Heparin - SQ 5,000 unit BID HUGO Administration Insulin Aspart 1 vial 02/10/20 16:30 02/17/20 12:00 Novolog Vial Sliding Scale - SQ 8 units ACHS HUGO Administration Protocol Insulin Detemir 45 units 02/07/20 22:00 02/16/20 23:20 Levemir Vial SQ 45 units HS HUGO Administration Multivitamins/Minerals/Vitamin C 1 tab 02/06/20 10:00 08/26/20 10:15 Tab-A-Vit - PO 1 tab DAILY HUGO Administration Oxycodone HCl 5 mg 02/11/20 12:05 02/14/20 11:45 Roxicodone - PO 5 mg Q6H PRN Administration PAIN LEVEL 6-10 Polyethylene Glycol 17 gm 02/06/20 11:15 02/17/20 10:14 Miralax (For Daily Use) - PO 17 gm DAILY HUGO Administration Quetiapine Fumarate 50 mg 02/05/20 22:00 02/16/20 23:17 Seroquel - PO 50 mg HS HUGO Administration Sitagliptin Phosphate 100 mg 02/06/20 10:00 02/17/20 10:16 Januvia - PO 100 mg DAILY HUGO Administration Vital Signs Period Temp Pulse Resp BP Sys/Leahy Pulse Ox Last 24 Hr 98 F-98.4 F 9-95 15-18 133-154/80-88 96-103 Constitutional: Yes: Well Nourished, No Distress Eyes: No: Sclera Icterus HENT: No: Nasal Congestion Neck: No: Decreased ROM Respiratory: Yes: CTA Bilaterally. No: Accessory Muscle Use, Rales, Wheezes Gastrointestinal: Yes: Normal Bowel Sounds. No: Distention, Hepatomegaly, Palpable Mass, Tenderness Cardiovascular: Yes: Regular Rate and Rhythm JVD: No Carotid Bruit: No PMI: Non-Displaced Heart Sounds: Yes: S1, S2. No: Gallop Murmur: No: Systolic Murmur, Diastolic Murmur Edema: No Integumentary: No: Jaundice Neurological: Yes: Alert. No: Seizure Psychiatric: No: Agitated Assessment/Plan echo 01/2020: normal LVEF, nl RV, nl valve function. CXR: ATX vs infiltrate R base, no effusions/congestion mibi 01/2020 mod sized area of inferolateral scar, no ischemia, EF 45% preop CV eval, PAD for LE bypass: -cannot evaluate for cardiac sx's due to his mental capacity -mult RFs for CAD/cardiomyopathy including DM, prior etoh abuse, age -recent echo unremarkable - mibi shows inferolateral scar, no ischemia - continue statin, plavix as medical management for likely underlying CAD -pt on plavix, unknown indication (PAD?)--mgmt perioperatively per vascular -abnormal CXR with atx vs infiltrate R base--tx and medical optimization per hospitalist -on digoxin for unclear indication, level ok here, continue - patient is at acceptable risk for LE bypass, no further cardiac testing prior to procedure - planned 02/17 DM: -per hospitalist HTN: -bp has been very labile here, stable now -cont present meds, observe trend HPL: -cont statin
[2020-02-17] MEDS ORDERED: QUEtiapine FUMARATE 25 MG TABLET ONE (21:42)
[2020-02-17] MEDS: ATORVASTATIN CA 20 MG TABLET (FP) PO SCH (21:57)
[2020-02-17] MEDS: QUEtiapine FUMARATE 50 MG TABLET PO SCH (21:59)
[2020-02-17] MEDS: INSULIN (LEVEMIR) 100 UNITS/ML UNITS SQ SCH (22:01)
[2020-02-18] MEDS: GABAPENTIN 300 MG CAPSULE PO SCH ×2 (06:16→22:40)
[2020-02-18] MEDS: INSULIN SLIDING SCALE (NOVOLOG) 1 VIAL SQ SCH ×4 (06:19→22:59)
--- NOTE | 2020-02-18 07:50 | PN ---
Progress Note, Physician Chief Complaint: Seen as examined in bed. Pending OR with Dr Pineda shortly. No complaints offered. History of Present Illness: Patient is a 64 year old male with a significant past medical history of DM, schizophrenia, HTN, HLD, GERD, dementia, EtOH use disorder who had his right knee great toe amputated apx 1 month ago, presents to the ED on 02/03/2020 with right 2nd digit gangrene. At [facility] pt underwent RLE angiogram which revealed right SFA occlusion. He is being followed by vascular surgery and was scheduled for a fem-pop bypass last week, but procedure cancelled and rescheduled for 02/16/2020. - Current Medication List Current Medications: Active Medications Amino Acids (Prosource No Carb Liquid Pkt) 30 ml PO DAILY [facility] Last Admin: 02/17/20 10:15 Dose: 30 ml Documented by: Aspirin (Asa -) 81 mg PO DAILY [facility] Last Admin: 02/17/20 10:12 Dose: 81 mg Documented by: Atorvastatin Calcium (Lipitor -) 20 mg PO HS [facility] Last Admin: 02/17/20 21:57 Dose: 20 mg Documented by: Carvedilol (Coreg -) 6.25 mg PO BID [facility] Last Admin: 02/17/20 21:57 Dose: 6.25 mg Documented by: Clopidogrel Bisulfate (Plavix -) 75 mg PO DAILY [facility] Last Admin: 02/17/20 10:14 Dose: 75 mg Documented by: Collagenase (Santyl -) 1 applic TP DAILY [facility]; Protocol Last Admin: 02/17/20 10:15 Dose: 1 applic Documented by: Digoxin (Lanoxin -) 0.125 mg PO DAILY [facility] Last Admin: 02/17/20 10:13 Dose: 0.125 mg Documented by: Docusate Sodium (Colace -) 100 mg PO BID [facility] Last Admin: 02/17/20 21:57 Dose: 100 mg Documented by: Famotidine (Pepcid -) 20 mg PO BID [facility] Last Admin: 02/17/20 21:58 Dose: 20 mg Documented by: Fentanyl (Sublimaze Injection -) 50 mcg IVPUSH [id number] PRN PRN Reason: PAIN-PACU ORDER X 4 DOSES ONLY Last Admin: 02/05/20 17:40 Dose: 50 mcg Documented by: Gabapentin (Neurontin -) 300 mg PO TID [facility] Last Admin: 02/18/20 06:16 Dose: Not Given Documented by: Heparin Sodium (Porcine) (Heparin -) 5,000 unit SQ BID [facility] Last Admin: 02/17/20 21:58 Dose: 5,000 unit Documented by: Insulin Aspart (Novolog Vial Sliding Scale -) 1 vial SQ ACHS [facility]; Protocol Last Admin: 02/18/20 06:19 Dose: Not Given Documented by: Insulin Detemir (Levemir Vial) 45 units SQ [facility] Last Admin: 02/17/20 22:01 Dose: 45 units Documented by: Multivitamins/Minerals/Vitamin C (Tab-A-Vit -) 1 tab PO DAILY [facility] Last Admin: 02/17/20 10:15 Dose: 1 tab Documented by: Oxycodone HCl (Roxicodone -) 5 mg PO Q6H PRN PRN Reason: PAIN LEVEL 6-10 Last Admin: 02/14/20 11:45 Dose: 5 mg Documented by: Polyethylene Glycol (Miralax (For Daily Use) -) 17 gm PO DAILY [facility] Last Admin: 02/17/20 10:14 Dose: 17 gm Documented by: Quetiapine Fumarate (Seroquel -) 50 mg PO HS [facility] Last Admin: 02/17/20 21:59 Dose: 50 mg Documented by: Sitagliptin Phosphate (Januvia -) 100 mg PO DAILY [facility] Last Admin: 02/17/20 10:16 Dose: 100 mg Documented by: - Objective Vital Signs: Vital Signs Temperature 97.9 F 02/18/20 06:00 Pulse Rate 82 02/18/20 06:00 Respiratory Rate 18 02/18/20 06:00 Blood Pressure 138/77 02/18/20 06:00 O2 Sat by Pulse Oximetry (%) 97 02/18/20 06:00 Additional Findings/Remarks: Constitutional: Yes: Well Nourished, No Distress, Calm Eyes: Yes: WNL, Conjunctiva Clear HENT: Yes: WNL, Atraumatic, Normocephalic Neck: Yes: WNL, Supple, Trachea Midline Cardiovascular: Yes: WNL, Regular Rate and Rhythm Respiratory: Yes: WNL, Regular, CTA Bilaterally Gastrointestinal: Yes: WNL, Normal Bowel Sounds, Soft ...Rectal Exam: Yes: Deferred Genitourinary: Yes: WNL Breast(s): Yes: WNL Musculoskeletal: Yes: WNL Extremities: Yes: Other (right foot dressing, for right 2nd digit gangrene. wound wrapped) Edema: No Peripheral Pulses WNL: Yes Peripheral Pulses: Left Doralis Pedis: 0 (drsg in place), Right Dorsalis Pedis: 0 (drsg in place) Integumentary: Yes: Other (BL drsg to LE) Neurological: Yes: WNL, Alert, Oriented ...Motor Strength: WNL Psychiatric: Yes: WNL Labs: CBC, BMP 02/17/20 08:30 02/17/20 08:30 INR, PTT INR 1.14 (0.83-1.09) H 02/17/20 08:30 Problem List - Problems (1) Schizophrenia Assessment/Plan: c/w quetiapine supportive care Code(s): F20.9 - SCHIZOPHRENIA, UNSPECIFIED (2) HLD (hyperlipidemia) Assessment/Plan: c/w statin Code(s): E78.5 - HYPERLIPIDEMIA, UNSPECIFIED (3) GERD (gastroesophageal reflux disease) Assessment/Plan: c/w pepcid Code(s): K21.9 - GASTRO-ESOPHAGEAL REFLUX DISEASE WITHOUT ESOPHAGITIS (4) Dementia Assessment/Plan: supportive care fall precautions Code(s): F03.90 - UNSPECIFIED DEMENTIA WITHOUT BEHAVIORAL DISTURBANCE (5) Right great toe amputee Assessment/Plan: great toe amputated apx 1 month ago, vascular sx following Code(s): Z89.411 - ACQUIRED ABSENCE OF RIGHT GREAT TOE (6) Gangrene of toe of right foot Assessment/Plan: awaiting OR Code(s): I96 - GANGRENE, NOT ELSEWHERE CLASSIFIED (7) Prophylactic measure Assessment/Plan: FEN Fluids: adequate PO intake Electrolytes: monitor & replete as needed Nutrition: diabetic diet DVT moderate risk restart heparin, plavix , asa post-surgery Dispo Maintain as inpatient full code [facility] Code(s): Z29.9 - ENCOUNTER FOR PROPHYLACTIC MEASURES, UNSPECIFIED (8) COVID-19 ruled out by laboratory testing Assessment/Plan: neg pcr Code(s): Z03.818 - ENCNTR FOR OBS FOR SUSP EXPSR TO OTH BIOLG AGENTS RULED OUT (9) Anemia Assessment/Plan: Anemia of chronic disease type and screen with 2u PRBC on hold for OR Code(s): D64.9 - ANEMIA, UNSPECIFIED (10) CKD (chronic kidney disease) Assessment/Plan: cr 1.2 avoid nephrotoxic agents monitor kidney function strict I/Os Code(s): N18.9 - CHRONIC KIDNEY DISEASE, UNSPECIFIED (11) Congestive heart failure Assessment/Plan: normal ejection fraction c/w coreg/ digoxin, Stress test completed on 02/09/2020 appears euvolemic staruict I/)s after surgery with low threshold for lasix Code(s): I50.9 - HEART FAILURE, UNSPECIFIED Qualifiers: Heart failure type: unspecified (12) Diabetic foot infection Assessment/Plan: vascular following OR today Code(s): E11.628 - TYPE 2 DIABETES MELLITUS WITH OTHER SKIN COMPLICATIONS; L08.9 - LOCAL INFECTION OF THE SKIN AND SUBCUTANEOUS TISSUE, UNSP (13) Hypertension Assessment/Plan: BP better controlled c/w coreq 3.125mg bid, digoxin 0.125mg daily Code(s): I10 - ESSENTIAL (PRIMARY) HYPERTENSION Visit type - Emergency Visit Emergency Visit: Yes ED Registration Date: 02/03/20 Care time: The patient presented to the Emergency Department on the above date and was hospitalized for further evaluation of their emergent condition. - New Patient This patient is new to me today: No - Critical Care Critical Care patient: No - Discharge Referral Referred to [facility] Med P.C.: No
[2020-02-18] MEDS ORDERED: HEPARIN NA (PORCINE) 5,000 UNITS/ML 1ML VIAL ONE ×2 (07:54→08:05)
[2020-02-18 08:26] LABS: BASO % 0.6 % (0-2.0); HEMATOCRIT 29.9 % (35.4-49); HEMOGLOBIN 9.9 GM/dL (11.7-16.9); INR 1.15 (0.83-1.09); LYMPH % 15.7 % (8-40); MCH 26.8 pg (25.7-33.7); MCHC 33.1 g/dl (32.0-35.9); MEAN PLT VOLUME 7.9 fl (7.5-11.1); MONO % 6.5 % (3.8-10.2); NEUT % 74.2 % (42.8-82.8); PLATELET COUNT 362 K/MM3 (134-434); PROTHROMBIN TIME (PATIENT) 13.6 SEC (9.7-13.0); RBC 3.69 M/mm3 (4.00-5.60); RDW 14.4 % (11.9-15.9); WHITE BLOOD COUNT 9.4 K/mm3 (4.0-10.0)
[2020-02-18 08:55] LABS: ALBUMIN 2.3 g/dl (3.4-5.0); BILIRUBIN,TOTAL 0.4 mg/dL (0.2-1); BLOOD UREA NITROGEN 27.3 mg/dL (7-18); CALCIUM 9.1 mg/dL (8.5-10.1); CREATININE 1.2 mg/dL (0.55-1.3); POTASSIUM 4.3 mmol/L (3.5-5.1); TOT PROT 7.6 g/dl (6.4-8.2)
[2020-02-18] MEDS ORDERED: ceFAZolin SODIUM 1 GM VIAL ONE (09:42)
[2020-02-18] MEDS ORDERED: MIDAZOLAM HCL 2 MG/2 ML SINGLE DOSE VIAL ONE (09:42)
[2020-02-18] MEDS ORDERED: fentaNYL CITRATE 250 MCG/5 ML VIAL ONE (09:42)
[2020-02-18] MEDS ORDERED: ROCURONIUM BROMIDE 50 MG/5 ML SYRINGE ONE ×2 (09:42→11:56)
[2020-02-18] MEDS ORDERED: LIDOCAINE HCL/PF 2% SDV 5ML VIAL ONE (09:42)
[2020-02-18] MEDS ORDERED: PROPOFOL 20 ML ONE (09:42)
[2020-02-18] MEDS: morphine SULFATE 4 MG/ML VIAL IVPUSH PRN (09:45)
[2020-02-18] MEDS ORDERED: ceFAZolin SODIUM 1 GM VIAL IVPB ONE (09:57)
[2020-02-18] MEDS ORDERED: DESFLURANE GAS 240 ML BOTTLE IH ONE (10:30)
[2020-02-18] MEDS ORDERED: ONDANSETRON 4 MG/2 ML VIAL ONE (10:50)
[2020-02-18] MEDS: POLYETHYLENE GLYCOL 3350 119 GM BTL PO SCH (12:09)
[2020-02-18] MEDS: DIGOXIN 0.125 MG TABLET (FP) PO SCH (12:09)
[2020-02-18] MEDS: FAMOTIDINE 20 MG TABLET PO SCH ×2 (12:09→22:40)
[2020-02-18] MEDS: DOCUSATE SODIUM 100 MG CAPSULE (FP) PO SCH ×2 (12:09→22:40)
[2020-02-18] MEDS: CARVEDILOL 6.25 MG TABLET (FP) PO SCH ×2 (12:09→22:40)
[2020-02-18] MEDS: sitaGLIPtin PHOSPHATE 50 MG TABLET PO SCH (12:09)
[2020-02-18] MEDS: ASPIRIN 81 MG CHEWABLE TABLETS PO SCH (12:09)
[2020-02-18] MEDS: CLOPIDOGREL BISULFATE 75 MG TABLET (FP) PO SCH (12:10)
[2020-02-18] MEDS: AMINO ACIDS/PROTEIN HYDROLYS 30 ML LIQUID.PKT PO SCH (12:10)
[2020-02-18] MEDS: MULTIVITAMINS (DAILY MVI) TABLET (FP) PO SCH (12:10)
[2020-02-18] MEDS: COLLAGENASE CLOSTRIDIUM HIST. 30 GRAMS TUBE TP SCH (12:11)
[2020-02-18] MEDS: HEPARIN NA (PORCINE) 5,000 UNITS/ML 1ML VIAL SQ SCH ×2 (12:11→22:36)
[2020-02-18] MEDS ORDERED: THROMBIN (BOVINE) 5,000 UNIT VIAL TP ONE (13:03)
[2020-02-18] MEDS ORDERED: GELATIN, ABSORBABLE 100 EACH SPONGE TP ONE (13:11)
[2020-02-18] MEDS ORDERED: PROTAMINE SULFATE 50 MG/5 ML VIAL ONE ×2 (13:37→13:38)
[2020-02-18] MEDS ORDERED: POVIDONE-IODINE OINTMENT 10% - 28.4 GM TUBE ONE (14:42)
--- NOTE | 2020-02-18 14:47 | OP ---
Operative Note - Note: Operative Date: 02/18/20 Pre-Operative Diagnosis: Right foot gangrene Operation: Right femoral artery to above knee popliteal artery bypass with PTFE. Angiogram of right lower extremity Post-Operative Diagnosis: Same as Pre-op Surgeon: Thien Pineda Electronics Mechanic: Jeremiah Mosquera Anesthesia: General Estimated Blood Loss (mls): 450 Blood Volume Replaced (mls): 400 Operative Report Dictated: Yes
[2020-02-18] MEDS ORDERED: ONDANSETRON 4 MG/2 ML VIAL IVPUSH PRN (15:09)
--- NOTE | 2020-02-18 15:10 | SURG ---
Surgery Nitro Worker Note Nitro Worker: Jeremiah Mosquera PA-C Date of Service: 02/18/20 Diagnosis: Right foot gangrene. Occluded right SFA Procedure: Right femoral artery to above knee popliteal artery bypass with PTFE. Angiogram of right lower extremity I was present for the entirety of the operative procedure. For further detail, please refer to operative report. Visit type - Case Type Case Type: ED Admission
[2020-02-18] MEDS ORDERED: SODIUM CHLORIDE 1,000 ML IV SCH (15:15)
--- NOTE | 2020-02-18 20:55 | CONSULT ---
Consultation: REQUESTING PROVIDER: CONSULT REQUEST: We have been asked to medically evaluate this patient for (specify). HISTORY OF PRESENT ILLNESS: 64 yo Male DNR pmh of DM, schizophrenia, htn, hld, GERD, Dementia, EtOH abuse, right great toe amputated 1 month ago coming into ICU s/p Right femoral poplitial bypass with PTFE. At [facility] pt underwent RLE angiogram which revealed right SFA occlusion. He is being followed by vascular surgery and was scheduled for a fem-pop bypass. Pt is very poor historian due to dementia and schizophrenia. Pt able to explain that he has no chest pain, SOB, chills, or pain. Pt understands he received surgery earlier and will not let anyone touch his foot. ad his right knee great toe amputated apx 1 month ago, presents to the ED on 02/03/2020 with right 2nd digit gangrene. REVIEW OF SYSTEMS : Limited due to pt dementia GENERAL/CONSTITUTIONAL: No fever or chills. No weakness. HEAD, EYES, EARS, NOSE AND THROAT:No sore throat. CARDIOVASCULAR: No chest pain or shortness of breath RESPIRATORY: No cough GASTROINTESTINAL: No nausea, vomiting, diarrhea or constipation. GENITOURINARY: No dysuria, frequency, or change in urination. MUSCULOSKELETAL: No numbness in feet or pain. SKIN: No rash NEUROLOGIC: No headache PHYSICAL EXAMINATION GENERAL: Awake, alert, and fully oriented but confused and agitated HEAD: No signs of trauma, normocephalic, atraumatic EYES: EOMI, sclera anicteric, conjunctiva clear ENT: Auricles normal inspection, hearing grossly normal, nares patent NECK: Normal ROM, supple, no lymphadenopathy, JVD, or masses LUNGS: No distress, speaks full sentences, clear to auscultation bilaterally HEART: Regular rate and rhythm, normal S1 and S2, no murmurs, rubs or gallops, peripheral pulses normal and equal bilaterally. ABDOMEN: Soft, nontender, normoactive bowel sounds. No guarding, no rebound. No masses EXTREMITIES : Right leg surgical bandage above right knee. Pt left foot has 2+ pulses. Pt will not let pt let us touch his right leg. NEUROLOGICAL: Cranial nerves II through XII grossly intact. Pt verbalizing hallucinations, Pt explains sensation same on both sides of his foot.N SKIN: Warm, Dry, normal turgor, no rashes or lesions noted Vital Signs - 24 hr 02/17/20 02/17/20 02/18/20 21:00 21:50 06:00 Temperature 98.3 F 97.9 F Pulse Rate 95 H 82 Respiratory 18 18 Rate Blood Pressure 150/91 138/77 O2 Sat by Pulse 99 99 97 Oximetry (%) 02/18/20 02/18/20 02/18/20 08:00 09:00 12:09 Temperature 98.0 F Pulse Rate 85 85 Respiratory 18 Rate Blood Pressure 149/86 O2 Sat by Pulse 100 100 Oximetry (%) 02/18/20 02/18/20 02/18/20 15:05 15:20 15:35 Temperature 98.7 F Pulse Rate 87 84 83 Respiratory 12 12 12 Rate Blood Pressure 127/78 118/80 120/76 O2 Sat by Pulse 100 100 100 Oximetry (%) 02/18/20 02/18/20 02/18/20 15:50 16:05 16:20 Temperature 98.4 F Pulse Rate 82 81 79 Respiratory 10 14 12 Rate Blood Pressure 130/79 126/75 125/76 O2 Sat by Pulse 100 100 100 Oximetry (%) 02/18/20 02/18/20 02/18/20 16:35 16:50 17:08 Temperature 98.1 F Pulse Rate 80 82 81 Respiratory 12 17 15 Rate Blood Pressure 140/70 128/87 129/72 O2 Sat by Pulse 100 100 100 Oximetry (%) 02/18/20 17:30 Temperature 98.2 F Pulse Rate 85 Respiratory 14 Rate Blood Pressure 108/66 O2 Sat by Pulse 100 Oximetry (%) Laboratory Results - last 24 hr 02/16/20 02/16/20 02/17/20 08:06 23:40 21:54 WBC RBC Hgb Hct MCV MCH MCHC RDW Plt Count MPV Absolute Neuts (auto) Neutrophils % Lymphocytes % Monocytes % Eosinophils % Basophils % Nucleated RBC % PT with INR INR Sodium Potassium Chloride Carbon Dioxide Anion Gap BUN Creatinine Est GFR (CKD-EPI)AfAm Est GFR (CKD-EPI)NonAf POC Glucometer 278 Random Glucose Calcium Magnesium Total Bilirubin AST ALT Alkaline Phosphatase Total Protein Albumin COVID-19 (LESLIE) Not detected Blood Type O POSITIVE Antibody Screen Negative Crossmatch See Detail Crossmatch IS Only See Detail 02/18/20 02/18/20 02/18/20 06:18 07:43 07:43 WBC 9.4 RBC 3.69 L Hgb 9.9 L Hct 29.9 L MCV 81.0 MCH 26.8 MCHC 33.1 RDW 14.4 Plt Count 362 MPV 7.9 Absolute Neuts (auto) 7.0 Neutrophils % 74.2 Lymphocytes % 15.7 Monocytes % 6.5 Eosinophils % 3.0 Basophils % 0.6 Nucleated RBC % 0 PT with INR INR Sodium 139 Potassium 4.3 Chloride 110 H Carbon Dioxide 22 Anion Gap 7 L BUN 27.3 H Creatinine 1.2 Est GFR (CKD-EPI)AfAm 74.66 Est GFR (CKD-EPI)NonAf 64.42 POC Glucometer 124 Random Glucose 141 H Calcium 9.1 Magnesium 2.0 Total Bilirubin 0.4 AST 13 L ALT 14 Alkaline Phosphatase 104 Total Protein 7.6 Albumin 2.3 L COVID-19 (LESLIE) Blood Type Antibody Screen Crossmatch Crossmatch IS Only 02/18/20 02/18/20 07:43 18:17 WBC RBC Hgb Hct MCV MCH MCHC RDW Plt Count MPV Absolute Neuts (auto) Neutrophils % Lymphocytes % Monocytes % Eosinophils % Basophils % Nucleated RBC % PT with INR 13.60 H INR 1.15 H Sodium Potassium Chloride Carbon Dioxide Anion Gap BUN Creatinine Est GFR (CKD-EPI)AfAm Est GFR (CKD-EPI)NonAf POC Glucometer 228 Random Glucose Calcium Magnesium Total Bilirubin AST ALT Alkaline Phosphatase Total Protein Albumin COVID-19 (LESLIE) Blood Type Antibody Screen Crossmatch Crossmatch IS Only Active Medications Generic Name Dose Route Start Last Admin Trade Name Freq PRN Reason Stop Dose Admin Amino Acids 30 ml 02/19/20 10:00 Prosource No Carb Liquid Pkt PO DAILY [facility] Aspirin 81 mg 02/19/20 10:00 Asa - PO DAILY [facility] Atorvastatin Calcium 20 mg 02/18/20 22:00 Lipitor - PO HS HUGO Carvedilol 6.25 mg 02/18/20 22:00 Coreg - PO BID [facility] Chlorhexidine Gluconate 1 applic 02/18/20 22:00 Hibiclens For Decolonization - TP HS HUGO Digoxin 0.125 mg 02/19/20 10:00 Lanoxin - PO DAILY HUGO Docusate Sodium 100 mg 02/18/20 22:00 Colace - PO BID HUGO Famotidine 20 mg 02/18/20 22:00 Pepcid - PO BID HUGO Gabapentin 300 mg 02/18/20 22:00 Neurontin - PO TID HUGO Heparin Sodium (Porcine) 5,000 unit 02/18/20 22:00 Heparin - SQ BID HUGO Sodium Chloride 1,000 mls @ 100 mls/hr 02/18/20 15:15 Normal Saline - IV ASDIR HUGO Insulin Aspart 1 vial 02/18/20 22:00 Novolog Vial Sliding Scale - SQ ACHS [facility] Protocol Insulin Detemir 45 units 02/18/20 22:00 Levemir Vial SQ HS HUGO Morphine Sulfate 4 mg 02/18/20 15:50 Morphine Sulfate IVPUSH Q6H PRN PAIN LEVEL 1-5 Multivitamins/Minerals/Vitamin C 1 tab 02/19/20 10:00 Tab-A-Vit - PO DAILY [facility] Mupirocin 1 applic 02/18/20 22:00 Bactroban Ointment (For Decolonization) - NS 02/23/20 21:59 BID [facility] Ondansetron HCl 4 mg 02/18/20 15:09 Zofran Injection IVPUSH Q6H PRN NAUSEA AND/OR VOMITING Polyethylene Glycol 17 gm 02/19/20 10:00 Miralax (For Daily Use) - PO DAILY [facility] Quetiapine Fumarate 50 mg 02/18/20 22:00 Seroquel - PO HS HUGO Sitagliptin Phosphate 100 mg 02/19/20 07:00 Januvia - PO DAILY@0700 [facility] ASSESSMENT/PLAN: Dispo: We will continue to follow the patient. Thank you for this consultative opportunity. 64 yo Male DNR pmh of DM, schizophrenia, htn, hld, GERD, Dementia, EtOH abuse, right great toe amputated 1 month ago coming into ICU s/p Right femoral poplitial bypass with PTFE. Neuro: - Check if neurovascularly intact. - q 12 hour neuro checks - Pt has history of schizophrenia will c/w quietapine - Hx of dementia supportive care fall precautions. Cardio - HLD- C/w statin - DM- continue sliding scale - HTN- continue meds - CHF normal ejection fraction - c/w coreg/ digoxin, GI: - c/w pepcid Vascular: - s/p Right leg femoral popliteal bypass - pt refusing to allow team palpate vasculature - will monitor for any changes - Appreciate vascular surgery consult ID - pt not on any antibiotics prior to surgery - appreciate Vascular surgery consult FEN: - pt electrolytes will be watched and repleted PPx: - restart heparin, plavix , asa post-surgery Visit type - Emergency Visit Emergency Visit: No - New Patient This patient is new to me today: Yes Date on this admission: 02/18/20 - Critical Care Critical Care patient: Yes Total Critical Care Time (in minutes): 36 Critical Care Statement: The care of this patient involved high complexity decision making to prevent further life threatening deterioration of the patient's condition and/or to evaluate & treat vital organ system(s) failure or risk of failure. ATTENDING PHYSICIAN STATEMENT I saw and evaluated the patient. I reviewed the resident's note and discussed the case with the resident. I agree with the resident's findings and plan as documented. SUBJECTIVE: OBJECTIVE: ASSESSMENT AND PLAN:
[2020-02-18] MEDS ORDERED: ATORVASTATIN CA 20 MG TABLET (FP) PO SCH (22:00)
[2020-02-18] MEDS ORDERED: INSULIN (LEVEMIR) 100 UNITS/ML UNITS SQ SCH (22:00)
[2020-02-18] MEDS ORDERED: CHLORHEXIDINE GLUCONATE 4% CLEANSER FOR DECOLONIZATION TP SCH (22:00)
[2020-02-18] MEDS ORDERED: QUEtiapine FUMARATE 50 MG TABLET PO SCH (22:00)
[2020-02-18] MEDS: MUPIROCIN 2% TOPICAL OINTMENT FOR DECOLONIZATION NS SCH (22:39)
[2020-02-19] MEDS ORDERED: DEXTROSE 50%-WATER 25 GM/50 ML DISP.SYRIN ONE (05:38)
[2020-02-19] MEDS ORDERED: DEXTROSE 50%-WATER - 25 GM/50 ML VIAL IVPUSH ONE (06:00)
[2020-02-19] MEDS: GABAPENTIN 300 MG CAPSULE PO SCH ×3 (06:10→21:25)
[2020-02-19] MEDS: INSULIN SLIDING SCALE (NOVOLOG) 1 VIAL SQ SCH ×4 (06:11→21:28)
--- NOTE | 2020-02-19 06:15 | PN ---
Progress Note, Physician Chief Complaint: TELE: NSR denies CP/SOB/dizziness - Current Medication List Current Medications: Active Medications Amino Acids (Prosource No Carb Liquid Pkt) 30 ml PO DAILY [facility] Aspirin (Asa -) 81 mg PO DAILY [facility] Atorvastatin Calcium (Lipitor -) 20 mg PO [facility] Last Admin: 02/18/20 22:40 Dose: 20 mg Documented by: Carvedilol (Coreg -) 6.25 mg PO BID [facility] Last Admin: 02/18/20 22:40 Dose: 6.25 mg Documented by: Chlorhexidine Gluconate (Hibiclens For Decolonization -) 1 applic TP [facility] Last Admin: 02/18/20 22:37 Dose: 1 applic Documented by: Digoxin (Lanoxin -) 0.125 mg PO DAILY [facility] Docusate Sodium (Colace -) 100 mg PO BID [facility] Last Admin: 02/18/20 22:40 Dose: 100 mg Documented by: Famotidine (Pepcid -) 20 mg PO BID [facility] Last Admin: 02/18/20 22:40 Dose: 20 mg Documented by: Gabapentin (Neurontin -) 300 mg PO TID [facility] Last Admin: 02/19/20 06:10 Dose: 300 mg Documented by: Heparin Sodium (Porcine) (Heparin -) 5,000 unit SQ BID [facility] Last Admin: 02/18/20 22:36 Dose: 5,000 unit Documented by: Insulin Aspart (Novolog Vial Sliding Scale -) 1 vial SQ [facility]; Protocol Last Admin: 02/19/20 06:11 Dose: Not Given Documented by: Insulin Detemir (Levemir Vial) 45 units SQ [facility] Last Admin: 02/18/20 22:59 Dose: 45 units Documented by: Morphine Sulfate (Morphine Sulfate) 4 mg IVPUSH Q6H PRN PRN Reason: PAIN LEVEL 1-5 Multivitamins/Minerals/Vitamin C (Tab-A-Vit -) 1 tab PO DAILY [facility] Mupirocin (Bactroban Ointment (For Decolonization) -) 1 applic NS BID [facility] Stop: 02/23/20 21:59 Last Admin: 02/18/20 22:39 Dose: 1 applic Documented by: Ondansetron HCl (Zofran Injection) 4 mg IVPUSH Q6H PRN PRN Reason: NAUSEA AND/OR VOMITING Polyethylene Glycol (Miralax (For Daily Use) -) 17 gm PO DAILY [facility] Quetiapine Fumarate (Seroquel -) 50 mg PO HS [facility] Last Admin: 02/18/20 22:40 Dose: 50 mg Documented by: Sitagliptin Phosphate (Januvia -) 100 mg PO DAILY@0700 [facility] Last Admin: 02/19/20 06:10 Dose: Not Given Documented by: - Objective Vital Signs: Vital Signs Temperature 98.0 F 02/19/20 00:00 Pulse Rate 95 H 02/19/20 00:00 Respiratory Rate 15 02/19/20 00:00 Blood Pressure 138/78 02/19/20 00:00 O2 Sat by Pulse Oximetry (%) 100 02/19/20 00:00 Constitutional: Yes: Calm Cardiovascular: Yes: Regular Rate and Rhythm Respiratory: Yes: CTA Bilaterally Gastrointestinal: Yes: Soft Edema: No Neurological: Yes: Alert Labs: CBC, BMP 02/18/20 07:43 02/18/20 07:43 INR, PTT INR 1.15 (0.83-1.09) H 02/18/20 07:43 Laboratory Tests 02/06/20 02/16/20 02/19/20 10:33 23:40 05:30 WBC 13.3 H Hgb 9.5 L Plt Count 323 INR Sodium Potassium BUN Creatinine Stool Occult Blood Negative COVID-19 ([facility]IE) Not detected 02/19/20 02/19/20 05:30 05:30 WBC Hgb Plt Count INR 1.18 H Sodium 141 Potassium 4.3 BUN 21.6 H Creatinine 1.0 Stool Occult Blood COVID-19 ([facility]LIE) - ....Imaging EKG: Image Reviewed Assessment/Plan DATA: echo 01/2020: normal LVEF, nl RV, nl valve function. CXR: ATX vs infiltrate R base, no effusions/congestion mibi 01/2020 mod sized area of inferolateral scar, no ischemia, EF 45% IMP/PLAN: s/p R. Fem-Pop: tolerated ssurgery well, hemodynamically stable. - mibi showed inferolateral scar, no ischemia - continue statin, plavix as medical management for likely underlying CAD -vascular following -on digoxin for unclear indication, level ok here, continue DM: -per hospitalist HTN: -bp has been very labile here, stable now -cont present meds, observe trend HPL: -cont statin
[2020-02-19] MEDS: morphine SULFATE 4 MG/ML VIAL IVPUSH PRN ×3 (06:23→18:57)
[2020-02-19 06:51] LABS: BASO % 0.4 % (0-2.0); EOS % 0.9 % (0-4.5); HEMATOCRIT 28.4 % (35.4-49); HEMOGLOBIN 9.5 GM/dL (11.7-16.9); LYMPH % 11.5 % (8-40); MCH 27.5 pg (25.7-33.7); MCHC 33.6 g/dl (32.0-35.9); MEAN PLT VOLUME 7.8 fl (7.5-11.1); MONO % 8.5 % (3.8-10.2); NEUT % 78.7 % (42.8-82.8); PLATELET COUNT 323 K/MM3 (134-434); RBC 3.46 M/mm3 (4.00-5.60); RDW 14.8 % (11.9-15.9); WHITE BLOOD COUNT 13.3 K/mm3 (4.0-10.0)
[2020-02-19 07:00] LABS: INR 1.18 (0.83-1.09); PROTHROMBIN TIME (PATIENT) 13.9 SEC (9.7-13.0)
[2020-02-19] MEDS ORDERED: sitaGLIPtin PHOSPHATE 50 MG TABLET PO SCH ×2 (07:00→10:00)
[2020-02-19 07:03] LABS: ACTIVATED PTT 32.6 SECONDS (25.2-36.5)
[2020-02-19 07:21] LABS: BILIRUBIN,TOTAL 0.6 mg/dL (0.2-1); BLOOD UREA NITROGEN 21.6 mg/dL (7-18); CALCIUM 8.3 mg/dL (8.5-10.1); MAGNESIUM 1.8 mg/dL (1.8-2.4); PHOSPHOROUS 3.8 mg/dL (2.5-4.9); POTASSIUM 4.3 mmol/L (3.5-5.1); TOT PROT 6.1 g/dl (6.4-8.2)
--- NOTE | 2020-02-19 09:42 | PN ---
Progress Note (short form) - Note Progress Note: Vascular surgery Pt seen and examined. Doing well. DRessings clean dry and intact. Good dopplerable PT pulse in left foot. Leg is warm. Can DC liang today Can transfer to floor. Hold plavix for now. Will now get podiatry to evaluate foot. Pt has gangrene of 2nd and third toes. Thien Pineda DO
[2020-02-19] MEDS ORDERED: ASPIRIN 81 MG CHEWABLE TABLETS PO SCH (10:00)
[2020-02-19] MEDS ORDERED: AMINO ACIDS/PROTEIN HYDROLYS 30 ML LIQUID.PKT PO SCH (10:00)
[2020-02-19] MEDS ORDERED: MULTIVITAMINS (DAILY MVI) TABLET (FP) PO SCH (10:00)
[2020-02-19] MEDS ORDERED: POLYETHYLENE GLYCOL 3350 119 GM BTL PO SCH (10:00)
[2020-02-19] MEDS ORDERED: DIGOXIN 0.125 MG TABLET (FP) PO SCH (10:00)
[2020-02-19] MEDS: CARVEDILOL 6.25 MG TABLET (FP) PO SCH ×2 (10:41→21:26)
[2020-02-19] MEDS: DOCUSATE SODIUM 100 MG CAPSULE (FP) PO SCH ×2 (10:41→21:26)
[2020-02-19] MEDS: FAMOTIDINE 20 MG TABLET PO SCH ×2 (10:42→21:26)
[2020-02-19] MEDS: HEPARIN NA (PORCINE) 5,000 UNITS/ML 1ML VIAL SQ SCH ×2 (10:42→21:27)
--- NOTE | 2020-02-19 10:47 | PN ---
Teaching Attending Note Name of Resident: Kylah Mcallister ATTENDING PHYSICIAN STATEMENT I saw and evaluated the patient. I reviewed the resident's note and discussed the case with the resident. I agree with the resident's findings and plan as documented. SUBJECTIVE: Pt seen and examined in the ICU. States pain is controlled. No shortness of breath or chest pain. OBJECTIVE: Vital Signs Period Temp Pulse Resp BP Sys/Leahy Pulse Ox Last 24 Hr 98.0 F-98.7 F 79-95 10-17 108-158/66-87 96-100 Intake & Output 02/16/20 02/17/20 02/18/20 02/19/20 23:59 23:59 23:59 23:59 Intake Total 1200 4600 950 Output Total 583 664 1232 900 Balance 550 -900 2700 50 Gen: NAD at rest Heart: RRR Lung: decreased breath sounds at the bases Abd: soft, nontender Ext: right foot wrapped CBC, BMP 02/19/20 05:30 02/19/20 05:30 Active Medications Amino Acids (Prosource No Carb Liquid Pkt) 30 ml PO DAILY [facility] Aspirin (Asa -) 81 mg PO DAILY [facility] Atorvastatin Calcium (Lipitor -) 20 mg PO HS [facility] Last Admin: 02/18/20 22:40 Dose: 20 mg Documented by: Carvedilol (Coreg -) 6.25 mg PO BID [facility] Last Admin: 02/18/20 22:40 Dose: 6.25 mg Documented by: Chlorhexidine Gluconate (Hibiclens For Decolonization -) 1 applic TP [facility] Last Admin: 02/18/20 22:37 Dose: 1 applic Documented by: Digoxin (Lanoxin -) 0.125 mg PO DAILY [facility] Docusate Sodium (Colace -) 100 mg PO BID [facility] Last Admin: 02/18/20 22:40 Dose: 100 mg Documented by: Famotidine (Pepcid -) 20 mg PO BID [facility] Last Admin: 02/18/20 22:40 Dose: 20 mg Documented by: Gabapentin (Neurontin -) 300 mg PO TID [facility] Last Admin: 02/19/20 06:10 Dose: 300 mg Documented by: Heparin Sodium (Porcine) (Heparin -) 5,000 unit SQ BID [facility] Last Admin: 02/18/20 22:36 Dose: 5,000 unit Documented by: Insulin Aspart (Novolog Vial Sliding Scale -) 1 vial SQ ACHS [facility]; Protocol Insulin Detemir (Levemir Vial) 45 units SQ [facility] Last Admin: 02/18/20 22:59 Dose: 45 units Documented by: Morphine Sulfate (Morphine Sulfate) 4 mg IVPUSH Q6H PRN PRN Reason: PAIN LEVEL 1-5 Last Admin: 02/19/20 06:23 Dose: 4 mg Documented by: Multivitamins/Minerals/Vitamin C (Tab-A-Vit -) 1 tab PO DAILY [facility] Mupirocin (Bactroban Ointment (For Decolonization) -) 1 applic NS BID [facility] Stop: 02/23/20 21:59 Last Admin: 02/18/20 22:39 Dose: 1 applic Documented by: Ondansetron HCl (Zofran Injection) 4 mg IVPUSH Q6H PRN PRN Reason: NAUSEA AND/OR VOMITING Polyethylene Glycol (Miralax (For Daily Use) -) 17 gm PO DAILY [facility] Quetiapine Fumarate (Seroquel -) 50 mg PO [facility] Last Admin: 02/18/20 22:40 Dose: 50 mg Documented by: Sitagliptin Phosphate (Januvia -) 100 mg PO DAILY@0700 [facility] Last Admin: 02/19/20 06:10 Dose: Not Given Documented by: ASSESSMENT AND PLAN: Right Foot Gangrene s/p R Fem-Pop Bypass PAD HTN DM Hyperlipidemia Schizophrenia Anemia - pulse checks - pain control - incentive spirometry - PO as tolerated - DVT prophylaxis - can monitor on floor
--- NOTE | 2020-02-19 10:53 | PN ---
Physical Exam: SUBJECTIVE: Patient seen and examined bedside, s/p femoral bypass. No events overnight. Patient in no distress. Patient sitting up eating breakfast. OBJECTIVE: Vital Signs 02/19/20 02/19/20 04:00 06:00 Temperature 98.0 F Pulse Rate 87 93 H Respiratory 14 13 Rate Blood Pressure 142/78 158/80 O2 Sat by Pulse 96 100 Oximetry (%) GENERAL: The patient is awake, A&O x3 HEAD: Normal with no signs of trauma. EYES: PERRL, sclera anicteric, conjunctiva clear ENT: moist mucous membranes. NECK: supple. LUNGS: Breath sounds equal, CTA BL HEART: RRR S1, S2 ABDOMEN: Soft, nontender, nondistended, normoactive bowel sounds EXTREMITIES: warm, well-perfused, no edema. Right foot bandaged NEUROLOGICAL: Normal speech, gait not PSYCH: Normal mood, normal affect. SKIN: Warm, dry Laboratory Results - last 24 hr 02/16/20 02/18/20 02/18/20 08:06 18:17 22:56 WBC RBC Hgb Hct MCV MCH MCHC RDW Plt Count MPV Absolute Neuts (auto) Neutrophils % Lymphocytes % Monocytes % Eosinophils % Basophils % Nucleated RBC % PT with INR INR PTT (Actin FS) Sodium Potassium Chloride Carbon Dioxide Anion Gap BUN Creatinine Est GFR (CKD-EPI)AfAm Est GFR (CKD-EPI)NonAf POC Glucometer 228 163 Random Glucose Calcium Phosphorus Magnesium Total Bilirubin AST ALT Alkaline Phosphatase Total Protein Albumin Blood Type O POSITIVE Antibody Screen Negative Crossmatch See Detail Crossmatch IS Only See Detail 02/19/20 02/19/20 02/19/20 05:30 05:30 05:30 WBC 13.3 H RBC 3.46 L Hgb 9.5 L Hct 28.4 L MCV 82.0 MCH 27.5 MCHC 33.6 RDW 14.8 Plt Count 323 MPV 7.8 Absolute Neuts (auto) 10.4 H Neutrophils % 78.7 Lymphocytes % 11.5 D Monocytes % 8.5 Eosinophils % 0.9 Basophils % 0.4 Nucleated RBC % 0 PT with INR 13.90 H INR 1.18 H PTT (Actin FS) 32.6 Sodium 141 Potassium 4.3 Chloride 112 H Carbon Dioxide 24 Anion Gap 5 L BUN 21.6 H Creatinine 1.0 Est GFR (CKD-EPI)AfAm 93.08 Est GFR (CKD-EPI)NonAf 80.31 POC Glucometer Random Glucose 55 L Calcium 8.3 L Phosphorus 3.8 Magnesium 1.8 Total Bilirubin 0.6 AST 11 L ALT 10 L Alkaline Phosphatase 50 Total Protein 6.1 L Albumin 2.0 L Blood Type Antibody Screen Crossmatch Crossmatch IS Only 02/19/20 05:35 WBC RBC Hgb Hct MCV MCH MCHC RDW Plt Count MPV Absolute Neuts (auto) Neutrophils % Lymphocytes % Monocytes % Eosinophils % Basophils % Nucleated RBC % PT with INR INR PTT (Actin FS) Sodium Potassium Chloride Carbon Dioxide Anion Gap BUN Creatinine Est GFR (CKD-EPI)AfAm Est GFR (CKD-EPI)NonAf POC Glucometer 54 Random Glucose Calcium Phosphorus Magnesium Total Bilirubin AST ALT Alkaline Phosphatase Total Protein Albumin Blood Type Antibody Screen Crossmatch Crossmatch IS Only Active Medications Generic Name Dose Route Start Last Admin Trade Name Freq PRN Reason Stop Dose Admin Amino Acids 30 ml 02/19/20 10:00 Prosource No Carb Liquid Pkt PO DAILY [facility] Aspirin 81 mg 02/19/20 10:00 Asa - PO DAILY [facility] Atorvastatin Calcium 20 mg 02/18/20 22:00 02/18/20 22:40 Lipitor - PO 20 mg HS [facility] Administration Carvedilol 6.25 mg 02/18/20 22:00 02/18/20 22:40 Coreg - PO 6.25 mg BID [facility] Administration Chlorhexidine Gluconate 1 applic 02/18/20 22:00 02/18/20 22:37 Hibiclens For Decolonization - TP 1 applic HS [facility] Administration Digoxin 0.125 mg 02/19/20 10:00 Lanoxin - PO DAILY [facility] Docusate Sodium 100 mg 02/18/20 22:00 02/18/20 22:40 Colace - PO 100 mg BID [facility] Administration Famotidine 20 mg 02/18/20 22:00 02/18/20 22:40 Pepcid - PO 20 mg BID [facility] Administration Gabapentin 300 mg 02/18/20 22:00 02/19/20 06:10 Neurontin - PO 300 mg TID [facility] Administration Heparin Sodium (Porcine) 5,000 unit 02/18/20 22:00 02/18/20 22:36 Heparin - SQ 5,000 unit BID [facility] Administration Insulin Aspart 1 vial 02/19/20 10:04 Novolog Vial Sliding Scale - SQ ACHS [facility] Protocol Insulin Detemir 45 units 02/18/20 22:00 02/18/20 22:59 Levemir Vial SQ 45 units HS [facility] Administration Morphine Sulfate 4 mg 02/18/20 15:50 02/19/20 06:23 Morphine Sulfate IVPUSH 4 mg Q6H PRN Administration PAIN LEVEL 1-5 Multivitamins/Minerals/Vitamin C 1 tab 02/19/20 10:00 Tab-A-Vit - PO DAILY [facility] Mupirocin 1 applic 02/18/20 22:00 02/18/20 22:39 Bactroban Ointment (For Decolonization) - NS 02/23/20 21:59 1 applic BID [facility] Administration Ondansetron HCl 4 mg 02/18/20 15:09 Zofran Injection IVPUSH Q6H PRN NAUSEA AND/OR VOMITING Polyethylene Glycol 17 gm 02/19/20 10:00 Miralax (For Daily Use) - PO DAILY [facility] Quetiapine Fumarate 50 mg 02/18/20 22:00 02/18/20 22:40 Seroquel - PO 50 mg HS [facility] Administration Sitagliptin Phosphate 100 mg 02/19/20 07:00 02/19/20 06:10 Januvia - PO Not Given DAILY@0700 [facility] ASSESSMENT/PLAN: 64 yo Male DNR pmh of DM, schizophrenia, htn, hld, GERD, Dementia, EtOH abuse, right great toe amputated 1 month ago coming into ICU s/p Right femoral poplitial bypass with PTFE. At [facility] pt underwent RLE angiogram which revealed right SFA occlusion. He underwent a fem-pop bypass. Patient tolerated surgery well, is hemodynamically stable. Patient now stable to be monitored on floors. Visit type - Emergency Visit Emergency Visit: Yes ED Registration Date: 02/03/20 Care time: The patient presented to the Emergency Department on the above date and was hospitalized for further evaluation of their emergent condition. - New Patient This patient is new to me today: No - Critical Care Critical Care patient: Yes Total Critical Care Time (in minutes): 35 Critical Care Statement: The care of this patient involved high complexity decision making to prevent further life threatening deterioration of the patient's condition and/or to evaluate & treat vital organ system(s) failure or risk of failure. - Discharge Referral Referred to [facility] Med P.C.: No ATTENDING PHYSICIAN STATEMENT I saw and evaluated the patient. I reviewed the resident's note and discussed the case with the resident. I agree with the resident's findings and plan as documented. SUBJECTIVE: OBJECTIVE: ASSESSMENT AND PLAN:
[2020-02-19] MEDS: MUPIROCIN 2% TOPICAL OINTMENT FOR DECOLONIZATION NS SCH (11:00)
--- NOTE | 2020-02-19 11:53 | PN ---
Progress Note, Physician Chief Complaint: right fem pop bypass under general anethesia History of Present Illness: pos op day one - Current Medication List Current Medications: Active Medications Amino Acids (Prosource No Carb Liquid Pkt) 30 ml PO DAILY [facility] Last Admin: 02/19/20 10:42 Dose: 30 ml Documented by: Aspirin (Asa -) 81 mg PO DAILY [facility] Last Admin: 02/19/20 10:41 Dose: 81 mg Documented by: Atorvastatin Calcium (Lipitor -) 20 mg PO [facility] Last Admin: 02/18/20 22:40 Dose: 20 mg Documented by: Carvedilol (Coreg -) 6.25 mg PO BID [facility] Last Admin: 02/19/20 10:41 Dose: 6.25 mg Documented by: Chlorhexidine Gluconate (Hibiclens For Decolonization -) 1 applic TP [facility] Last Admin: 02/18/20 22:37 Dose: 1 applic Documented by: Digoxin (Lanoxin -) 0.125 mg PO DAILY [facility] Last Admin: 02/19/20 10:41 Dose: 0.125 mg Documented by: Docusate Sodium (Colace -) 100 mg PO BID [facility] Last Admin: 02/19/20 10:41 Dose: 100 mg Documented by: Famotidine (Pepcid -) 20 mg PO BID [facility] Last Admin: 02/19/20 10:42 Dose: 20 mg Documented by: Gabapentin (Neurontin -) 300 mg PO TID [facility] Last Admin: 02/19/20 06:10 Dose: 300 mg Documented by: Heparin Sodium (Porcine) (Heparin -) 5,000 unit SQ BID [facility] Last Admin: 02/19/20 10:42 Dose: 5,000 unit Documented by: Insulin Aspart (Novolog Vial Sliding Scale -) 1 vial SQ [facility]; Protocol Insulin Detemir (Levemir Vial) 45 units SQ [facility] Last Admin: 02/18/20 22:59 Dose: 45 units Documented by: Morphine Sulfate (Morphine Sulfate) 4 mg IVPUSH Q6H PRN PRN Reason: PAIN LEVEL 1-5 Last Admin: 02/19/20 06:23 Dose: 4 mg Documented by: Multivitamins/Minerals/Vitamin C (Tab-A-Vit -) 1 tab PO DAILY [facility] Last Admin: 02/19/20 10:42 Dose: 1 tab Documented by: Mupirocin (Bactroban Ointment (For Decolonization) -) 1 applic NS BID [facility] Stop: 02/23/20 21:59 Last Admin: 02/18/20 22:39 Dose: 1 applic Documented by: Ondansetron HCl (Zofran Injection) 4 mg IVPUSH Q6H PRN PRN Reason: NAUSEA AND/OR VOMITING Polyethylene Glycol (Miralax (For Daily Use) -) 17 gm PO DAILY [facility] Last Admin: 02/19/20 10:44 Dose: 17 gm Documented by: Quetiapine Fumarate (Seroquel -) 50 mg PO HS [facility] Last Admin: 02/18/20 22:40 Dose: 50 mg Documented by: Sitagliptin Phosphate (Januvia -) 100 mg PO DAILY@0700 [facility] Last Admin: 02/19/20 06:10 Dose: Not Given Documented by: - Objective Vital Signs: Vital Signs Temperature 98.0 F 02/19/20 06:00 Pulse Rate 100 H 02/19/20 10:41 Respiratory Rate 13 02/19/20 06:00 Blood Pressure 158/80 02/19/20 06:00 O2 Sat by Pulse Oximetry (%) 100 02/19/20 06:00 Constitutional: Yes: Well Nourished Cardiovascular: Yes: WNL Respiratory: Yes: WNL Gastrointestinal: Yes: WNL Labs: CBC, BMP 02/19/20 05:30 02/19/20 05:30 INR, PTT INR 1.18 (0.83-1.09) H 02/19/20 05:30 Assessment/Plan Patient complaining of pain, given pain medication, otherwise no adverse reaction to anesthetic, dept of anesthesiology will sign off care at this time
[2020-02-19] MEDS ORDERED: ONDANSETRON 4 MG/2 ML VIAL IVPUSH PRN (17:35)
[2020-02-19] MEDS: ACETAMINOPHEN 325 MG TABLET (FP) PO PRN (21:26)
[2020-02-19] MEDS: QUEtiapine FUMARATE 25 MG TABLET PO SCH (21:26)
[2020-02-19] MEDS: ATORVASTATIN CA 20 MG TABLET (FP) PO SCH (21:26)
[2020-02-19] MEDS: INSULIN (LEVEMIR) 100 UNITS/ML UNITS SQ SCH (21:27)
[2020-02-19] MEDS ORDERED: MUPIROCIN 2% TOPICAL OINTMENT FOR DECOLONIZATION NS SCH (22:00)
[2020-02-20] MEDS: ACETAMINOPHEN 325 MG TABLET (FP) PO PRN ×2 (04:17→14:51)
[2020-02-20] MEDS: sitaGLIPtin PHOSPHATE 50 MG TABLET PO SCH (06:11)
[2020-02-20] MEDS: GABAPENTIN 300 MG CAPSULE PO SCH ×3 (06:11→21:14)
[2020-02-20] MEDS: INSULIN SLIDING SCALE (NOVOLOG) 1 VIAL SQ SCH ×4 (06:13→21:04)
--- NOTE | 2020-02-20 07:47 | PN ---
Progress Note, Physician Chief Complaint: Seen as examined in bed. POD #2. Lethargic but arousable. Minimal pain to right LE. Drsg c/d/i. Afebrile now spike to 100.9@ 4am. History of Present Illness: Patient is a 64 year old male with a significant past medical history of DM, schizophrenia, HTN, HLD, GERD, dementia, EtOH use disorder who had his right knee great toe amputated apx 1 month ago, presents to the ED on 02/03/2020 with right 2nd digit gangrene. At [facility] pt underwent RLE angiogram which revealed right SFA occlusion. He is being followed by vascular surgery and was scheduled for a fem-pop bypass last week, but procedure cancelled and rescheduled for 02/16/2020. - Current Medication List Current Medications: Active Medications Acetaminophen (Tylenol -) 650 mg PO Q4H PRN PRN Reason: FEVER Last Admin: 02/20/20 04:17 Dose: 650 mg Documented by: Amino Acids (Prosource No Carb Liquid Pkt) 30 ml PO DAILY [facility] Aspirin (Asa -) 81 mg PO DAILY [facility] Atorvastatin Calcium (Lipitor -) 20 mg PO HS [facility] Last Admin: 02/19/20 21:26 Dose: 20 mg Documented by: Carvedilol (Coreg -) 6.25 mg PO BID [facility] Last Admin: 02/19/20 21:26 Dose: 6.25 mg Documented by: Digoxin (Lanoxin -) 0.125 mg PO DAILY [facility] Docusate Sodium (Colace -) 100 mg PO BID [facility] Last Admin: 02/19/20 21:26 Dose: 100 mg Documented by: Famotidine (Pepcid -) 20 mg PO BID [facility] Last Admin: 02/19/20 21:26 Dose: 20 mg Documented by: Gabapentin (Neurontin -) 300 mg PO TID [facility] Last Admin: 02/20/20 06:11 Dose: 300 mg Documented by: Heparin Sodium (Porcine) (Heparin -) 5,000 unit SQ BID [facility] Last Admin: 02/19/20 21:27 Dose: 5,000 unit Documented by: Insulin Aspart (Novolog Vial Sliding Scale -) 1 vial SQ [facility]; Protocol Last Admin: 02/20/20 06:13 Dose: 4 units Documented by: Insulin Detemir (Levemir Vial) 45 units SQ [facility] Last Admin: 02/19/20 21:27 Dose: 45 units Documented by: Morphine Sulfate (Morphine Sulfate) 4 mg IVPUSH Q6H PRN PRN Reason: PAIN LEVEL 1-5 Last Admin: 02/19/20 18:57 Dose: 4 mg Documented by: Multivitamins/Minerals/Vitamin C (Tab-A-Vit -) 1 tab PO DAILY [facility] Ondansetron HCl (Zofran Injection) 4 mg IVPUSH Q6H PRN PRN Reason: NAUSEA AND/OR VOMITING Polyethylene Glycol (Miralax (For Daily Use) -) 17 gm PO DAILY [facility] Quetiapine Fumarate (Seroquel -) 50 mg PO [facility] Last Admin: 02/19/20 21:26 Dose: 50 mg Documented by: Sitagliptin Phosphate (Januvia -) 100 mg PO DAILY@0700 [facility] Last Admin: 02/20/20 06:11 Dose: 100 mg Documented by: - Objective Vital Signs: Vital Signs Temperature 100.5 F H 02/20/20 06:04 Pulse Rate 112 H 02/20/20 06:04 Respiratory Rate 02/20/20 06:04 Blood Pressure 160/76 02/20/20 06:04 O2 Sat by Pulse Oximetry (%) 96 02/20/20 06:04 Additional Findings/Remarks: Constitutional: Yes: Well Nourished, No Distress, Calm Eyes: Yes: WNL, Conjunctiva Clear HENT: Yes: WNL, Atraumatic, Normocephalic Neck: Yes: WNL, Supple, Trachea Midline Cardiovascular: Yes: WNL, Regular Rate and Rhythm Respiratory: Yes: WNL, Regular, CTA Bilaterally Gastrointestinal: Yes: WNL, Normal Bowel Sounds, Soft ...Rectal Exam: Yes: Deferred Genitourinary: Yes: WNL Breast(s): Yes: WNL Musculoskeletal: Yes: WNL Extremities: Yes: Other (right foot dressing, for right 2nd digit gangrene. wound wrapped) Edema: No Peripheral Pulses: Left Doralis Pedis: 0 (drsg in place), Right Dorsalis Pedis: 0 (drsg in place). Integumentary: Yes: Other (BL drsg to LE) Neurological: Yes: WNL, Alert, Oriented ...Motor Strength: WNL Psychiatric: Yes: WNL Labs: CBC, BMP 02/19/20 05:30 02/19/20 05:30 INR, PTT INR 1.18 (0.83-1.09) H 02/19/20 05:30 Problem List - Problems (1) Schizophrenia Assessment/Plan: c/w quetiapine supportive care Code(s): F20.9 - SCHIZOPHRENIA, UNSPECIFIED (2) HLD (hyperlipidemia) Assessment/Plan: c/w statin Code(s): E78.5 - HYPERLIPIDEMIA, UNSPECIFIED (3) GERD (gastroesophageal reflux disease) Assessment/Plan: c/w pepcid Code(s): K21.9 - GASTRO-ESOPHAGEAL REFLUX DISEASE WITHOUT ESOPHAGITIS (4) Dementia Assessment/Plan: supportive care fall precautions Code(s): F03.90 - UNSPECIFIED DEMENTIA WITHOUT BEHAVIORAL DISTURBANCE (5) Right great toe amputee Assessment/Plan: great toe amputated apx 1 month ago, Podiatry to see pt to evaluate left foot. S/P bypass. PT runoff Code(s): Z89.411 - ACQUIRED ABSENCE OF RIGHT GREAT TOE (6) Gangrene of toe of right foot Assessment/Plan: podiatry to see Code(s): I96 - GANGRENE, NOT ELSEWHERE CLASSIFIED (7) Prophylactic measure Assessment/Plan: FEN Fluids: adequate PO intake Electrolytes: monitor & replete as needed Nutrition: diabetic diet DVT moderate risk c/w heparin, asa post-surgery Dispo Maintain as inpatient full code discharge planning back to [facility] facility i Code(s): Z29.9 - ENCOUNTER FOR PROPHYLACTIC MEASURES, UNSPECIFIED (8) COVID-19 ruled out by laboratory testing Assessment/Plan: neg pcr Code(s): Z03.818 - ENCNTR FOR OBS FOR SUSP EXPSR TO OTH BIOLG AGENTS RULED OUT (9) Anemia Assessment/Plan: Anemia of chronic disease 2u PRBC in OR EBL 450 c/t trend Code(s): D64.9 - ANEMIA, UNSPECIFIED (10) CKD (chronic kidney disease) Assessment/Plan: cr 1.2 avoid nephrotoxic agents monitor kidney function strict I/Os Code(s): N18.9 - CHRONIC KIDNEY DISEASE, UNSPECIFIED (11) Congestive heart failure Assessment/Plan: normal ejection fraction c/w coreg/ digoxin, Stress test completed on 02/09/2020 appears euvolemic strict I/O Code(s): I50.9 - HEART FAILURE, UNSPECIFIED Qualifiers: Heart failure type: unspecified (12) Diabetic foot infection Assessment/Plan: vascular following Podiatry to see Code(s): E11.628 - TYPE 2 DIABETES MELLITUS WITH OTHER SKIN COMPLICATIONS; L08.9 - LOCAL INFECTION OF THE SKIN AND SUBCUTANEOUS TISSUE, UNSP (13) Hypertension Assessment/Plan: BP better controlled c/w coreq 3.125mg bid, digoxin 0.125mg daily Code(s): I10 - ESSENTIAL (PRIMARY) HYPERTENSION Visit type - Emergency Visit Emergency Visit: Yes ED Registration Date: 02/03/20 Care time: The patient presented to the Emergency Department on the above date and was hospitalized for further evaluation of their emergent condition. - New Patient This patient is new to me today: No - Critical Care Critical Care patient: No - Discharge Referral Referred to [facility] Med P.C.: No
[2020-02-20 09:40] LABS: BASO % 0.4 % (0-2.0); EOS % 0.8 % (0-4.5); HEMATOCRIT 25.1 % (35.4-49); HEMOGLOBIN 8.4 GM/dL (11.7-16.9); LYMPH % 8.6 % (8-40); MCH 27.7 pg (25.7-33.7); MCHC 33.6 g/dl (32.0-35.9); MEAN CELL VOLUME 82.6 fl (80-96); MEAN PLT VOLUME 8.1 fl (7.5-11.1); MONO % 7.3 % (3.8-10.2); NEUT % 82.9 % (42.8-82.8); PLATELET COUNT 243 K/MM3 (134-434); RBC 3.04 M/mm3 (4.00-5.60); RDW 14.7 % (11.9-15.9); WHITE BLOOD COUNT 13.5 K/mm3 (4.0-10.0)
--- NOTE | 2020-02-20 09:56 | PN ---
Progress Note, Physician Chief Complaint: low grade fever No CP/SOB/palps - Current Medication List Current Medications: Active Medications Acetaminophen (Tylenol -) 650 mg PO Q4H PRN PRN Reason: FEVER Last Admin: 02/20/20 04:17 Dose: 650 mg Documented by: Amino Acids (Prosource No Carb Liquid Pkt) 30 ml PO DAILY [facility] Aspirin (Asa -) 81 mg PO DAILY [facility] Atorvastatin Calcium (Lipitor -) 20 mg PO [facility] Last Admin: 02/19/20 21:26 Dose: 20 mg Documented by: Carvedilol (Coreg -) 6.25 mg PO BID [facility] Last Admin: 02/19/20 21:26 Dose: 6.25 mg Documented by: Digoxin (Lanoxin -) 0.125 mg PO DAILY [facility] Docusate Sodium (Colace -) 100 mg PO BID [facility] Last Admin: 02/19/20 21:26 Dose: 100 mg Documented by: Famotidine (Pepcid -) 20 mg PO BID [facility] Last Admin: 02/19/20 21:26 Dose: 20 mg Documented by: Gabapentin (Neurontin -) 300 mg PO TID [facility] Last Admin: 02/20/20 06:11 Dose: 300 mg Documented by: Heparin Sodium (Porcine) (Heparin -) 5,000 unit SQ BID [facility] Last Admin: 02/19/20 21:27 Dose: 5,000 unit Documented by: Insulin Aspart (Novolog Vial Sliding Scale -) 1 vial SQ [facility]; Protocol Last Admin: 02/20/20 06:13 Dose: 4 units Documented by: Insulin Detemir (Levemir Vial) 45 units SQ [facility] Last Admin: 02/19/20 21:27 Dose: 45 units Documented by: Morphine Sulfate (Morphine Sulfate) 4 mg IVPUSH Q6H PRN PRN Reason: PAIN LEVEL 1-5 Last Admin: 02/19/20 18:57 Dose: 4 mg Documented by: Multivitamins/Minerals/Vitamin C (Tab-A-Vit -) 1 tab PO DAILY [facility] Ondansetron HCl (Zofran Injection) 4 mg IVPUSH Q6H PRN PRN Reason: NAUSEA AND/OR VOMITING Polyethylene Glycol (Miralax (For Daily Use) -) 17 gm PO DAILY [facility] Quetiapine Fumarate (Seroquel -) 50 mg PO [facility] Last Admin: 02/19/20 21:26 Dose: 50 mg Documented by: Sitagliptin Phosphate (Januvia -) 100 mg PO DAILY@0700 [facility] Last Admin: 02/20/20 06:11 Dose: 100 mg Documented by: - Objective Vital Signs: Vital Signs Temperature 100.5 F H 02/20/20 06:04 Pulse Rate 112 H 02/20/20 06:04 Respiratory Rate 20 02/20/20 06:04 Blood Pressure 160/76 02/20/20 06:04 O2 Sat by Pulse Oximetry (%) 96 02/20/20 06:04 Constitutional: Yes: No Distress Cardiovascular: Yes: Regular Rate and Rhythm Respiratory: Yes: CTA Bilaterally Gastrointestinal: Yes: Soft (nt) Edema: No ...Motor Strength: WNL Labs: CBC, BMP 02/20/20 08:40 INR, PTT INR 1.18 (0.83-1.09) H 02/19/20 05:30 Microbiology 02/05/20 08:08 Blood - Peripheral Venous Blood Culture - Final NO GROWTH AFTER 5 DAYS INCUBATION 02/05/20 07:50 Blood - Peripheral Venous Blood Culture - Final NO GROWTH AFTER 5 DAYS INCUBATION Laboratory Tests 02/20/20 08:40 WBC 13.5 H Hgb 8.4 L Plt Count 243 D Assessment/Plan DATA: echo 01/2020: normal LVEF, nl RV, nl valve function. CXR: ATX vs infiltrate R base, no effusions/congestion mibi 01/2020 mod sized area of inferolateral scar, no ischemia, EF 45% IMP/PLAN: s/p R. Fem-Pop: tolerated ssurgery well, hemodynamically stable but now with fevers - mibi showed inferolateral scar, no ischemia - continue statin, plavix as medical management for likely underlying CAD -vascular following -on digoxin for unclear indication, level ok here, continue fever: as per primary team DM: -per hospitalist HTN: mildly elevated this AM -bp has been very labile here -cont present meds, observe trend especially with new fever would not aggressively treat BP in the event of possible SIRS/early sepsis picture. Would allow BP to run normal to mildly elevated at this time HPL: -cont statin
[2020-02-20 10:05] LABS: ALBUMIN 1.8 g/dl (3.4-5.0); BILIRUBIN,TOTAL 0.3 mg/dL (0.2-1); BLOOD UREA NITROGEN 22.2 mg/dL (7-18); CREATININE 1.2 mg/dL (0.55-1.3); MAGNESIUM 1.8 mg/dL (1.8-2.4); POTASSIUM 3.8 mmol/L (3.5-5.1)
[2020-02-20] MEDS ORDERED: PT OWN MED DRAWER 7, Y5N ONE (10:29)
[2020-02-20] MEDS: HEPARIN NA (PORCINE) 5,000 UNITS/ML 1ML VIAL SQ SCH ×2 (12:25→21:07)
[2020-02-20] MEDS: ASPIRIN 81 MG CHEWABLE TABLETS PO SCH (12:25)
[2020-02-20] MEDS: MULTIVITAMINS (DAILY MVI) TABLET (FP) PO SCH (12:25)
[2020-02-20] MEDS: AMINO ACIDS/PROTEIN HYDROLYS 30 ML LIQUID.PKT PO SCH (12:25)
[2020-02-20] MEDS: DIGOXIN 0.125 MG TABLET (FP) PO SCH (12:25)
[2020-02-20] MEDS: FAMOTIDINE 20 MG TABLET PO SCH ×2 (12:25→21:14)
[2020-02-20] MEDS: DOCUSATE SODIUM 100 MG CAPSULE (FP) PO SCH ×2 (12:26→21:11)
[2020-02-20] MEDS: CARVEDILOL 6.25 MG TABLET (FP) PO SCH ×2 (12:26→21:15)
[2020-02-20] MEDS: POLYETHYLENE GLYCOL 3350 119 GM BTL PO SCH (12:31)
--- NOTE | 2020-02-20 14:27 | CONSULT ---
Consult - text type - Consultation Consultation Note: Podiatry Consultation: 64 year old diabetic male presented from [facility] for gangrene and infection of the right foot. S/p RLE angiogram by Dr. Pineda demonstrating occlusion of the SFA. S/p RLE fem-pop bypass. Worsening gangrenous changes to the right foot. S/p hallux amputation done at another facility. Currently temp to 100F. VSS. PMHx: DM, Schizophrenia, HTN, HLD, GERD, Dementia, EtOH Use Meds: noted ALL: NKMA THEE: R foot: There is a first ray diabetic ulcer with exposed first metatarsal. Extensive fibrotic tissue. No purulent drainage, no fluctuance, no streaking ascending cellulitis, no signs of acute infection. There are dry gangrenous changes to the second and third digits, mummification of the digits. There is moderate tenderness elicited on palpation of the foot. Imp: 64 year old diabetic male with PVD s/p RLE fem-pop bypass and worsening gangrene of the right forefoot 1. IV abx per ID 2. xeroform DSD R foot 3. Will need TMA given extent of tissue loss and gangrenous changes. Will discuss treatment options with patient's family members. Will plan for OR early next week if family is amenable. 4. Thank you for the courtesy of this consultation Christian Cummins DPM
[2020-02-20] MEDS ORDERED: ARTIFICIAL TEARS (POLYVINYL ALCOHOL) OPTH DROPS OU PRN (18:33)
[2020-02-20] MEDS: ATORVASTATIN CA 20 MG TABLET (FP) PO SCH (21:15)
[2020-02-20] MEDS: QUEtiapine FUMARATE 25 MG TABLET PO SCH (21:15)
[2020-02-20] MEDS: morphine SULFATE 4 MG/ML VIAL IVPUSH PRN (21:35)
[2020-02-20] MEDS: INSULIN (LEVEMIR) 100 UNITS/ML UNITS SQ SCH (21:41)
[2020-02-21] MEDS: ACETAMINOPHEN 325 MG TABLET (FP) PO PRN (01:50)
[2020-02-21] MEDS ORDERED: PT OWN MED DRAWER 7, Y5N ONE (01:55)
[2020-02-21] MEDS ORDERED: ACETAMINOPHEN 325 MG TABLET (FP) PO ONE (03:36)
[2020-02-21] MEDS: sitaGLIPtin PHOSPHATE 50 MG TABLET PO SCH (06:20)
[2020-02-21] MEDS: GABAPENTIN 300 MG CAPSULE PO SCH ×3 (06:24→21:41)
[2020-02-21] MEDS: INSULIN SLIDING SCALE (NOVOLOG) 1 VIAL SQ SCH ×4 (06:26→21:34)
--- NOTE | 2020-02-21 08:16 | PN ---
Progress Note, Physician History of Present Illness: Patient is a 64 year old male with a significant past medical history of DM, schizophrenia, HTN, HLD, GERD, dementia, EtOH use disorder who had his right knee great toe amputated apx 1 month ago, presents to the ED on 02/03/2020 with right 2nd digit gangrene. At [facility] pt underwent RLE angiogram which revealed right SFA occlusion. He is being followed by vascular surgery and was scheduled for a fem-pop bypass last week, but procedure cancelled and rescheduled for 02/16/2020. - Current Medication List Current Medications: Active Medications Acetaminophen (Tylenol -) 650 mg PO Q4H PRN PRN Reason: FEVER Last Admin: 02/21/20 01:50 Dose: 650 mg Documented by: Amino Acids (Prosource No Carb Liquid Pkt) 30 ml PO DAILY [facility] Last Admin: 02/20/20 12:25 Dose: 30 ml Documented by: Artificial Tears (Artificial Tears) 1 drop OU Q6H PRN PRN Reason: DRY EYES Last Admin: 02/21/20 01:57 Dose: 1 drop Documented by: Aspirin (Asa -) 81 mg PO DAILY [facility] Last Admin: 02/20/20 12:25 Dose: 81 mg Documented by: Atorvastatin Calcium (Lipitor -) 20 mg PO HS [facility] Last Admin: 02/20/20 21:15 Dose: 20 mg Documented by: Carvedilol (Coreg -) 6.25 mg PO BID [facility] Last Admin: 02/20/20 21:15 Dose: 6.25 mg Documented by: Digoxin (Lanoxin -) 0.125 mg PO DAILY [facility] Last Admin: 02/20/20 12:25 Dose: 0.125 mg Documented by: Docusate Sodium (Colace -) 100 mg PO BID [facility] Last Admin: 02/20/20 21:11 Dose: 100 mg Documented by: Famotidine (Pepcid -) 20 mg PO BID [facility] Last Admin: 02/20/20 21:14 Dose: 20 mg Documented by: Gabapentin (Neurontin -) 300 mg PO TID [facility] Last Admin: 02/21/20 06:24 Dose: 300 mg Documented by: Heparin Sodium (Porcine) (Heparin -) 5,000 unit SQ BID [facility] Last Admin: 02/20/20 21:07 Dose: 5,000 unit Documented by: Insulin Aspart (Novolog Vial Sliding Scale -) 1 vial SQ ACHS [facility]; Protocol Last Admin: 02/21/20 06:26 Dose: 2 units Documented by: Insulin Detemir (Levemir Vial) 45 units SQ [facility] Last Admin: 02/20/20 21:41 Dose: 45 units Documented by: Morphine Sulfate (Morphine Sulfate) 4 mg IVPUSH Q6H PRN PRN Reason: PAIN LEVEL 1-5 Last Admin: 02/20/20 21:35 Dose: 4 mg Documented by: Multivitamins/Minerals/Vitamin C (Tab-A-Vit -) 1 tab PO DAILY [facility] Last Admin: 02/20/20 12:25 Dose: 1 tab Documented by: Ondansetron HCl (Zofran Injection) 4 mg IVPUSH Q6H PRN PRN Reason: NAUSEA AND/OR VOMITING Polyethylene Glycol (Miralax (For Daily Use) -) 17 gm PO DAILY [facility] Last Admin: 02/20/20 12:31 Dose: 17 gm Documented by: Quetiapine Fumarate (Seroquel -) 50 mg PO [facility] Last Admin: 02/20/20 21:15 Dose: 50 mg Documented by: Sitagliptin Phosphate (Januvia -) 100 mg PO DAILY@0700 [facility] Last Admin: 02/21/20 06:20 Dose: 100 mg Documented by: - Objective Vital Signs: Vital Signs Temperature 99.7 F H 02/21/20 06:00 Pulse Rate 96 H 02/21/20 06:00 Respiratory Rate 22 H 02/21/20 06:00 Blood Pressure 135/67 02/21/20 06:00 O2 Sat by Pulse Oximetry (%) 98 02/21/20 06:00 Labs: CBC, BMP 02/20/20 08:40 02/20/20 08:40 INR, PTT INR 1.18 (0.83-1.09) H 02/19/20 05:30 Problem List - Problems (1) Schizophrenia Code(s): F20.9 - SCHIZOPHRENIA, UNSPECIFIED (2) HLD (hyperlipidemia) Code(s): E78.5 - HYPERLIPIDEMIA, UNSPECIFIED (3) GERD (gastroesophageal reflux disease) Code(s): K21.9 - GASTRO-ESOPHAGEAL REFLUX DISEASE WITHOUT ESOPHAGITIS (4) Dementia Code(s): F03.90 - UNSPECIFIED DEMENTIA WITHOUT BEHAVIORAL DISTURBANCE (5) Right great toe amputee Code(s): Z89.411 - ACQUIRED ABSENCE OF RIGHT GREAT TOE (6) Gangrene of toe of right foot Assessment/Plan: seen by Podiatry Dr Cummins Rec: xeroform DSD R foot Will need TMA given extent of tissue loss and gangrenous changes Code(s): I96 - GANGRENE, NOT ELSEWHERE CLASSIFIED (7) Prophylactic measure Code(s): Z29.9 - ENCOUNTER FOR PROPHYLACTIC MEASURES, UNSPECIFIED (8) COVID-19 ruled out by laboratory testing Code(s): Z03.818 - ENCNTR FOR OBS FOR SUSP EXPSR TO OTH BIOLG AGENTS RULED OUT (9) Anemia Code(s): D64.9 - ANEMIA, UNSPECIFIED (10) CKD (chronic kidney disease) Code(s): N18.9 - CHRONIC KIDNEY DISEASE, UNSPECIFIED (11) Congestive heart failure Code(s): I50.9 - HEART FAILURE, UNSPECIFIED Qualifiers: Heart failure type: unspecified (12) Diabetic foot infection Code(s): E11.628 - TYPE 2 DIABETES MELLITUS WITH OTHER SKIN COMPLICATIONS; L08.9 - LOCAL INFECTION OF THE SKIN AND SUBCUTANEOUS TISSUE, UNSP (13) Hypertension Code(s): I10 - ESSENTIAL (PRIMARY) HYPERTENSION
[2020-02-21] MEDS ORDERED: ACETAMINOPHEN 1000 MG/100 ML VIAL (NON FORMULARY) IVPB ONE ×2 (09:17→19:10)
[2020-02-21] MEDS: ASPIRIN 81 MG CHEWABLE TABLETS PO SCH (10:46)
[2020-02-21] MEDS: MULTIVITAMINS (DAILY MVI) TABLET (FP) PO SCH (10:46)
[2020-02-21] MEDS: DIGOXIN 0.125 MG TABLET (FP) PO SCH (10:46)
[2020-02-21] MEDS: FAMOTIDINE 20 MG TABLET PO SCH ×2 (10:46→21:43)
[2020-02-21] MEDS: AMINO ACIDS/PROTEIN HYDROLYS 30 ML LIQUID.PKT PO SCH (10:46)
[2020-02-21] MEDS: CARVEDILOL 6.25 MG TABLET (FP) PO SCH ×2 (10:49→21:42)
[2020-02-21] MEDS: DOCUSATE SODIUM 100 MG CAPSULE (FP) PO SCH ×2 (10:49→21:42)
[2020-02-21] MEDS: HEPARIN NA (PORCINE) 5,000 UNITS/ML 1ML VIAL SQ SCH ×2 (10:49→21:39)
[2020-02-21] MEDS: POLYETHYLENE GLYCOL 3350 119 GM BTL PO SCH (10:52)
--- NOTE | 2020-02-21 11:57 | PN ---
Progress Note (short form) - Note Progress Note: Patient is comfortable has fever since last 2 days blood cultures are negative. Seen by equine dentist. Vital Signs Period Temp Pulse Resp BP Sys/Leahy Pulse Ox Last 24 Hr 99.5 F-102.3 F 92-114 18-22 135-159/67-87 95-98 Patient is comfortable HEENT normal Neck supple no JVD Lungs clear no wheezing Abdomen nontender no organomegaly bowel sounds normal Extremities no edema no cyanosis normal pulses, he has right toes gangrene Neurologically he is alert awake oriented, nonfocal Skin no rash noted CBC, BMP 02/20/20 08:40 02/20/20 08:40 Assessment and plan Patient is a 64 year old male with a significant past medical history of DM, schizophrenia, HTN, HLD, GERD, dementia, EtOH use disorder who had his right knee great toe amputated apx 1 month ago, presents to the ED on 02/03/2020 with right 2nd digit gangrene. Patient is febrile today. Will start antibiotics Zosyn awaiting ID evaluation. Tylenol as needed for fever. Other medical problems which are schizophrenia hyperlipidemia GERD dementia anemia history of chronic kidney disease. Continue his current medications. Current Medications Generic Name Dose Route Start Last Admin Trade Name Freq PRN Reason Stop Dose Admin Acetaminophen 650 mg 02/19/20 19:58 02/21/20 01:50 Tylenol - PO 650 mg Q4H PRN Administration FEVER Amino Acids 30 ml 02/20/20 10:00 02/21/20 10:46 Prosource No Carb Liquid Pkt PO 30 ml DAILY [facility] Administration Artificial Tears 1 drop 02/20/20 18:33 02/21/20 01:57 Artificial Tears OU 1 drop Q6H PRN Administration DRY EYES Aspirin 81 mg 02/20/20 10:00 02/21/20 10:46 Asa - PO 81 mg DAILY [facility] Administration Atorvastatin Calcium 20 mg 02/19/20 22:00 02/20/20 21:15 Lipitor - PO 20 mg HS [facility] Administration Carvedilol 6.25 mg 02/19/20 22:00 02/21/20 10:49 Coreg - PO 6.25 mg BID [facility] Administration Digoxin 0.125 mg 02/20/20 10:00 02/21/20 10:46 Lanoxin - PO 0.125 mg DAILY [facility] Administration Docusate Sodium 100 mg 02/19/20 22:00 02/21/20 10:49 Colace - PO 100 mg BID [facility] Administration Famotidine 20 mg 02/19/20 22:00 02/21/20 10:46 Pepcid - PO 20 mg BID [facility] Administration Gabapentin 300 mg 02/19/20 22:00 02/21/20 06:24 Neurontin - PO 300 mg TID [facility] Administration Heparin Sodium (Porcine) 5,000 unit 02/19/20 22:00 02/21/20 10:49 Heparin - SQ 5,000 unit BID [facility] Administration Piperacillin Sod/Tazobactam 50 mls @ 100 mls/hr 02/21/20 12:00 Sod 3.375 gm/ Dextrose IVPB Q8H-IV [facility] Protocol Insulin Aspart 1 vial 02/19/20 22:00 02/21/20 11:12 Novolog Vial Sliding Scale - SQ Not Given ACHS [facility] Protocol Insulin Detemir 45 units 02/19/20 22:00 02/20/20 21:41 Levemir Vial SQ 45 units HS [facility] Administration Multivitamins/Minerals/Vitamin C 1 tab 02/20/20 10:00 02/21/20 10:46 Tab-A-Vit - PO 1 tab DAILY [facility] Administration Ondansetron HCl 4 mg 02/19/20 17:35 Zofran Injection IVPUSH Q6H PRN NAUSEA AND/OR VOMITING Polyethylene Glycol 17 gm 02/20/20 10:00 02/21/20 10:52 Miralax (For Daily Use) - PO 17 gm DAILY [facility] Administration Quetiapine Fumarate 50 mg 02/19/20 22:00 02/20/20 21:15 Seroquel - PO 50 mg HS [facility] Administration Sitagliptin Phosphate 100 mg 02/20/20 07:00 02/21/20 06:20 Januvia - PO 100 mg DAILY@0700 [facility] Administration Visit type - Emergency Visit Emergency Visit: Yes ED Registration Date: 02/03/20 Care time: The patient presented to the Emergency Department on the above date and was hospitalized for further evaluation of their emergent condition. - New Patient This patient is new to me today: Yes Date on this admission: 02/21/20 - Critical Care Critical Care patient: No - Discharge Referral Referred to [facility] Med P.C.: No
--- NOTE | 2020-02-21 12:44 | PN ---
Progress Note (short form) - Note Progress Note: Vascular Surgery S/P right fem pop bypass. Doing well. Foot is warm. Podiatry evaluated the pt for possible tma. Dopplerable PT pulse. Dopplerable popliteal pulse. Thien Pineda DO
[2020-02-21] MEDS ORDERED: DEXTROSE 5%-WATER - 50 ML IVPB ONE ×2 (13:06→16:33)
[2020-02-21] MEDS ORDERED: PIPERACILLIN/TAZOBACTAM 3.375 GM VIAL IVPB ONE ×2 (13:06→16:32)
[2020-02-21] MEDS: PIPERACILLIN/TAZOB 3.375 GM 3.375 GM in DEXTROSE 5%-WATER - 50 ML IVPB SCH ×2 (13:24→17:32)
[2020-02-21] MEDS: INSULIN (LEVEMIR) 100 UNITS/ML UNITS SQ SCH (21:36)
[2020-02-21] MEDS: QUEtiapine FUMARATE 25 MG TABLET PO SCH (21:42)
[2020-02-21] MEDS: ATORVASTATIN CA 20 MG TABLET (FP) PO SCH (21:42)
[2020-02-22] MEDS ORDERED: PIPERACILLIN/TAZOBACTAM 3.375 GM VIAL IVPB ONE ×2 (01:00→10:13)
[2020-02-22] MEDS ORDERED: DEXTROSE 5%-WATER - 50 ML IVPB ONE ×2 (01:00→10:13)
[2020-02-22] MEDS: ACETAMINOPHEN 325 MG TABLET (FP) PO PRN ×3 (01:35→20:40)
[2020-02-22] MEDS: PIPERACILLIN/TAZOB 3.375 GM 3.375 GM in DEXTROSE 5%-WATER - 50 ML IVPB SCH ×3 (01:35→20:01)
[2020-02-22] MEDS ORDERED: ACETAMINOPHEN 1000 MG/100 ML VIAL (NON FORMULARY) IVPB ONE (02:49)
[2020-02-22] MEDS: GABAPENTIN 300 MG CAPSULE PO SCH ×3 (06:20→21:48)
[2020-02-22] MEDS: sitaGLIPtin PHOSPHATE 50 MG TABLET PO SCH (06:20)
[2020-02-22] MEDS: INSULIN SLIDING SCALE (NOVOLOG) 1 VIAL SQ SCH ×4 (06:20→22:04)
--- NOTE | 2020-02-22 07:29 | PN ---
Progress Note (short form) - Note Progress Note: Podiatry Consultation: 64 year old diabetic male presented from [facility] for gangrene and infection of the right foot. S/p RLE angiogram by Dr. Pineda demonstrating occlusion of the SFA. S/p RLE fem-pop bypass. Is unable to be aroused to discuss procedure this morning. Tmax at 103. PMHx: DM, Schizophrenia, HTN, HLD, GERD, Dementia, EtOH Use Meds: noted ALL: NKMA THEE: R foot: There is a first ray diabetic ulcer with exposed first metatarsal. Extensive fibrotic tissue. No purulent drainage, no fluctuance, no streaking ascending cellulitis, no signs of acute infection. There are dry gangrenous changes to the second and third digits, mummification of the digits. There is moderate tenderness elicited on palpation of the foot. Imp: 64 year old diabetic male with PVD s/p RLE fem-pop bypass and worsening gangrene of the right forefoot Evaluated and reviewed will plan for OR tomorrow afternoon as long as patient is stable Need to make sure COVID test is up to date for the OR Servando discuss with brother today for consent. plan for OR tomorrow NPO after midnight; will discuss with vascular if we can hold heparin.
[2020-02-22 08:54] LABS: BASO % 0.3 % (0-2.0); EOS % 0.5 % (0-4.5); HEMATOCRIT 27.1 % (35.4-49); LYMPH % 7.6 % (8-40); MCH 27.2 pg (25.7-33.7); MCHC 33.2 g/dl (32.0-35.9); MEAN CELL VOLUME 82.2 fl (80-96); MONO % 6.2 % (3.8-10.2); NEUT % 85.4 % (42.8-82.8); PLATELET COUNT 244 K/MM3 (134-434); WHITE BLOOD COUNT 15.4 K/mm3 (4.0-10.0)
[2020-02-22 09:32] LABS: ALBUMIN 1.7 g/dl (3.4-5.0); BILIRUBIN,TOTAL 0.7 mg/dL (0.2-1); BLOOD UREA NITROGEN 24.1 mg/dL (7-18); CALCIUM 8.9 mg/dL (8.5-10.1); CREATININE 1.6 mg/dL (0.55-1.3); MAGNESIUM 2.1 mg/dL (1.8-2.4); TOT PROT 6.5 g/dl (6.4-8.2)
[2020-02-22] MEDS: ASPIRIN 81 MG CHEWABLE TABLETS PO SCH (10:23)
[2020-02-22] MEDS: DIGOXIN 0.125 MG TABLET (FP) PO SCH (10:23)
[2020-02-22] MEDS: DOCUSATE SODIUM 100 MG CAPSULE (FP) PO SCH ×2 (10:23→21:48)
[2020-02-22] MEDS: CARVEDILOL 6.25 MG TABLET (FP) PO SCH ×2 (10:23→21:49)
[2020-02-22] MEDS: FAMOTIDINE 20 MG TABLET PO SCH ×2 (10:23→21:48)
[2020-02-22] MEDS: MULTIVITAMINS (DAILY MVI) TABLET (FP) PO SCH (10:24)
[2020-02-22] MEDS: AMINO ACIDS/PROTEIN HYDROLYS 30 ML LIQUID.PKT PO SCH (10:24)
[2020-02-22] MEDS: HEPARIN NA (PORCINE) 5,000 UNITS/ML 1ML VIAL SQ SCH (10:25)
[2020-02-22] MEDS: POLYETHYLENE GLYCOL 3350 119 GM BTL PO SCH (10:26)
--- NOTE | 2020-02-22 12:04 | PN ---
Progress Note (short form) - Note Progress Note: s: no cp sob palps dizzy Current Medications Generic Name Dose Route Start Last Admin Trade Name Freq PRN Reason Stop Dose Admin Acetaminophen 650 mg 02/19/20 19:58 02/22/20 01:35 Tylenol - PO 650 mg Q4H PRN Administration FEVER Amino Acids 30 ml 02/20/20 10:00 02/22/20 10:24 Prosource No Carb Liquid Pkt PO 30 ml DAILY [facility] Administration Artificial Tears 1 drop 02/20/20 18:33 02/21/20 01:57 Artificial Tears OU 1 drop Q6H PRN Administration DRY EYES Aspirin 81 mg 02/20/20 10:00 02/22/20 10:23 Asa - PO 81 mg DAILY [facility] Administration Atorvastatin Calcium 20 mg 02/19/20 22:00 02/21/20 21:42 Lipitor - PO 20 mg HS [facility] Administration Carvedilol 6.25 mg 02/19/20 22:00 02/22/20 10:23 Coreg - PO 6.25 mg BID [facility] Administration Digoxin 0.125 mg 02/20/20 10:00 02/22/20 10:23 Lanoxin - PO 0.125 mg DAILY [facility] Administration Docusate Sodium 100 mg 02/19/20 22:00 02/22/20 10:23 Colace - PO 100 mg BID [facility] Administration Famotidine 20 mg 02/19/20 22:00 02/22/20 10:23 Pepcid - PO 20 mg BID [facility] Administration Gabapentin 300 mg 02/19/20 22:00 02/22/20 06:20 Neurontin - PO 300 mg TID [facility] Administration Heparin Sodium (Porcine) 5,000 unit 02/19/20 22:00 02/22/20 10:25 Heparin - SQ 5,000 unit BID [facility] Administration Piperacillin Sod/Tazobactam 50 mls @ 100 mls/hr 02/21/20 18:00 Sod 3.375 gm/ Dextrose IVPB Q8H-IV [facility] Protocol Insulin Aspart 1 vial 02/19/20 22:00 02/22/20 06:20 Novolog Vial Sliding Scale - SQ Not Given ACHS [facility] Protocol Insulin Detemir 45 units 02/19/20 22:00 02/21/20 21:36 Levemir Vial SQ 45 units HS [facility] Administration Multivitamins/Minerals/Vitamin C 1 tab 02/20/20 10:00 02/22/20 10:24 Tab-A-Vit - PO 1 tab DAILY [facility] Administration Ondansetron HCl 4 mg 02/19/20 17:35 Zofran Injection IVPUSH Q6H PRN NAUSEA AND/OR VOMITING Polyethylene Glycol 17 gm 02/20/20 10:00 02/22/20 10:26 Miralax (For Daily Use) - PO 17 gm DAILY [facility] Administration Quetiapine Fumarate 50 mg 02/19/20 22:00 02/21/20 21:42 Seroquel - PO 50 mg HS [facility] Administration Sitagliptin Phosphate 100 mg 02/20/20 07:00 02/22/20 06:20 Januvia - PO 100 mg DAILY@0700 [facility] Administration Vital Signs Period Temp Pulse Resp BP Sys/Leahy Pulse Ox Last 24 Hr 98.8 F-103.2 F 85-116 18-18 102-153/60-92 93-99 Constitutional: Yes: Well Nourished, No Distress Eyes: No: Sclera Icterus HENT: No: Nasal Congestion Respiratory: Yes: CTA Bilaterally. No: Accessory Muscle Use, Rales, Wheezes Gastrointestinal: Yes: Normal Bowel Sounds. No: Distention, Hepatomegaly, Palpable Mass, Tenderness Cardiovascular: Yes: Regular Rate and Rhythm JVD: No Heart Sounds: Yes: S1, S2. No: Gallop Murmur: No: Systolic Murmur, Diastolic Murmur Edema: No Integumentary: No: Jaundice Neurological: Yes: Alert. No: Seizure Psychiatric: No: Agitated CBC, BMP 02/22/20 07:50 02/22/20 07:50 Assessment/Plan echo 01/2020: normal LVEF, nl RV, nl valve function. CXR: ATX vs infiltrate R base, no effusions/congestion mibi 01/2020 mod sized area of inferolateral scar, no ischemia, EF 45% preop CV eval, PAD: -s/p R. Fem-Pop: tolerated surgery well, hemodynamically stable but now with fevers and plan for repeat OR for amputation for gangrene of foot -cannot evaluate for cardiac sx's due to his mental capacity -mult RFs for CAD/cardiomyopathy including DM, prior etoh abuse, age -recent echo unremarkable - mibi shows inferolateral scar, no ischemia - continue statin, plavix as medical management for likely underlying CAD -on digoxin for unclear indication, level ok here, continue - patient is at acceptable risk for vascular surgery/amputation, no further cardiac testing prior to procedure DM: -per hospitalist HTN: -cont present meds HPL: -cont statin
--- NOTE | 2020-02-22 13:21 | PN ---
Progress Note (short form) - Note Progress Note: S: Continued high fevers overnight. Answers questions appropriately, but poor insight into medical condition. O: Vital Signs Temperature 99.8 F H 02/22/20 10:00 Pulse Rate 100 H 02/22/20 10:23 Respiratory Rate 18 02/22/20 10:00 Blood Pressure 148/77 02/22/20 10:00 O2 Sat by Pulse Oximetry (%) 99 02/22/20 10:00 PE: Gen: NAD, awake, alert, sitting up in bed watching TV HEENT: Nc/AT, TERRI, EOMI, dry mucosa Neck: No JVD LUNG: CTA b/l without wheezes/rales CARD: RRR no murmurs ABD: Soft, NT/ND, normoactive BS EXT: R foot gangrene noted, bandage without any drainage, hot to touch, no TTP surrounding area in questions, pulses diminished distally bilaterally Skin: See above CBC, BMP 02/22/20 07:50 02/22/20 07:50 Microbiology 02/05/20 07:50 Blood - Peripheral Venous Blood Culture - Final NO GROWTH AFTER 5 DAYS INCUBATION 02/05/20 08:08 Blood - Peripheral Venous Blood Culture - Final NO GROWTH AFTER 5 DAYS INCUBATION 02/03/20 13:05 Blood - Peripheral Venous Blood Culture - Final NO GROWTH AFTER 5 DAYS INCUBATION 02/03/20 13:05 Blood - Peripheral Venous Blood Culture - Final NO GROWTH AFTER 5 DAYS INCUBATION 02/03/20 16:20 Toe - Right Hallux Gram Stain - Final 02/03/20 16:20 Toe - Right Hallux Wound Culture - Final Klebsiella Pneumoniae - Esbl Proteus Mirabilis Enterococcus Faecalis A/P: R foot dry gangrene Schizophrenia CKD HFpEF T2DM with diabetic foot wound History of HTN History of HLD --To go to OR with podiatry tomorrow --NPO after midnight --Holding SQ heparin dose this evening --Podiatry to obtain consent from family --Patient had previous vascular surgical procedure with negative MIBI on 02/08 --Pt is okay to continue to OR tomorrow --Cardiology on board already --ID on board to evaluate patient --ABX per ID (continue with Zosyn until furthur notice) --Will need source control to be performed tomorrow or else expected fever spike s throughout --Tylenol PRN for fevers Edil Corti, DO - IM
--- NOTE | 2020-02-22 15:03 | PN ---
Progress Note (short form) - Note Progress Note: POD 4, s/p Right femoral artery to above knee popliteal artery bypass with PTFE. Angiogram of right lower extremity Pt seen and examined. Reports he has some pain in R groin. Has not been oob. Tolerating PO, liang in place. Denies cp/sob, n/v/d. Vital Signs Temp 100.7 F H 02/22/20 14:00 Pulse 104 H 02/22/20 14:00 Resp 18 02/22/20 14:00 BP 116/70 02/22/20 14:00 Pulse Ox 96 02/22/20 14:00 Intake & Output 02/21/20 02/22/20 02/22/20 23:59 11:59 23:59 Intake Total 950 300 Output Total 400 Balance 550 300 Intake: IVPB 200 150 Oral 750 150 Output: Urine 400 Void 400 Other: Voiding Method External Catheter External Catheter External Catheter # Unmeasured Voids Void 1 Bowel Movement No No CBC, BMP 02/22/20 07:50 02/22/20 07:50 Gen: awake, alert, nad Resp: unlabored on RA Abdo: soft, nt/nd Ext: R groin with palpable hematoma, appears stable per prior notes, dressing mi nimally saturated with dried blood, changed, incision c/d/i, no erythema or drainage, R distal thigh incision with dressing c/d/i, dressing changed no erythema or drainage noted Vac: biphasic harry/pt A/P: 64 y/o M w/ PMHx DM, Schizophrenia, HTN, HLD, GERD, Dementia, EtOH s/p R great toe amputation now with 2nd digit gangrene, s/p POD 4, s/p Right femoral artery to above knee popliteal artery bypass with PTFE, Angiogram of right lower extremity. febrile since Saturday, tmax 103.2 tachy to low 100s, bp in 1teens incisions stable blood cultures pending no ucx, last UA 02/02 last cxr 02/07 source of sepsis foot? -recommend full infectious workup -planned for tma tomorrow with podiatry -continue abx per ID -dressing changes per podiatry -continue asa d/w attending Dr Pineda and Dr Loya
[2020-02-22] MEDS ORDERED: ERTAPENEM SODIUM 1 GM in SODIUM CHLORIDE 50 ML IVPB ONE ×2 (19:35→20:15)
[2020-02-22] MEDS ORDERED: INSULIN (LEVEMIR) 100 UNITS/ML UNITS SQ ONE (19:47)
[2020-02-22] MEDS: QUEtiapine FUMARATE 25 MG TABLET PO SCH (21:48)
[2020-02-22] MEDS: ATORVASTATIN CA 20 MG TABLET (FP) PO SCH (21:49)
[2020-02-23] MEDS: GABAPENTIN 300 MG CAPSULE PO SCH ×3 (05:08→21:30)
[2020-02-23] MEDS: INSULIN SLIDING SCALE (NOVOLOG) 1 VIAL SQ SCH ×4 (06:05→21:32)
[2020-02-23 08:24] LABS: BASO % 0.2 % (0-2.0); EOS % 0.6 % (0-4.5); HEMATOCRIT 25.8 % (35.4-49); HEMOGLOBIN 8.4 GM/dL (11.7-16.9); LYMPH % 5.6 % (8-40); MCH 27.1 pg (25.7-33.7); MCHC 32.6 g/dl (32.0-35.9); MEAN PLT VOLUME 8.2 fl (7.5-11.1); MONO % 6.9 % (3.8-10.2); NEUT % 86.7 % (42.8-82.8); PLATELET COUNT 254 K/MM3 (134-434); RBC 3.11 M/mm3 (4.00-5.60); RDW 15.6 % (11.9-15.9); WHITE BLOOD COUNT 14.6 K/mm3 (4.0-10.0)
[2020-02-23 08:32] LABS: ALBUMIN 1.6 g/dl (3.4-5.0); BILIRUBIN,TOTAL 0.3 mg/dL (0.2-1); BLOOD UREA NITROGEN 29.9 mg/dL (7-18); CALCIUM 8.2 mg/dL (8.5-10.1); CREATININE 1.5 mg/dL (0.55-1.3); POTASSIUM 4.3 mmol/L (3.5-5.1); TOT PROT 6.4 g/dl (6.4-8.2)
[2020-02-23] MEDS: ACETAMINOPHEN 325 MG TABLET (FP) PO PRN ×2 (09:59→21:29)
[2020-02-23] MEDS: DIGOXIN 0.125 MG TABLET (FP) PO SCH (10:00)
[2020-02-23] MEDS: CARVEDILOL 6.25 MG TABLET (FP) PO SCH ×2 (10:00→21:30)
[2020-02-23] MEDS: FAMOTIDINE 20 MG TABLET PO SCH ×2 (10:00→21:29)
[2020-02-23] MEDS: MULTIVITAMINS (DAILY MVI) TABLET (FP) PO SCH (10:35)
[2020-02-23] MEDS: AMINO ACIDS/PROTEIN HYDROLYS 30 ML LIQUID.PKT PO SCH (10:35)
[2020-02-23] MEDS: DOCUSATE SODIUM 100 MG CAPSULE (FP) PO SCH ×2 (10:35→21:30)
[2020-02-23] MEDS: ASPIRIN 81 MG CHEWABLE TABLETS PO SCH (10:35)
[2020-02-23] MEDS: POLYETHYLENE GLYCOL 3350 119 GM BTL PO SCH (10:35)
--- NOTE | 2020-02-23 11:10 | PN ---
Progress Note (short form) - Note Progress Note: POD 5, s/p Right femoral artery to above knee popliteal artery bypass with PTFE. Angiogram of right lower extremity Pt seen and examined. Reports he has some pain in R groin. Has not been oob. Tolerating PO, liang in place. Denies cp/sob, n/v/d. Vital Signs Temp 100.5 F H 02/23/20 11:04 Pulse 112 H 02/23/20 10:00 Resp 18 02/23/20 09:02 BP 144/78 02/23/20 09:02 Pulse Ox 95 02/23/20 09:02 Intake & Output 02/22/20 02/22/20 02/23/20 11:59 23:59 11:59 Intake Total 300 250 50 Output Total 400 Balance 300 250 -350 Intake: IVPB 150 50 Oral 150 250 Output: Urine 400 Liang 400 Other: Voiding Method External Catheter External Catheter Bowel Movement No No Yes CBC, BMP 02/23/20 07:05 02/23/20 07:05 Gen: awake, alert, nad Resp: unlabored on RA Abdo: soft, nt/nd Ext: R groin with palpable hematoma, appears stable per prior notes, dressing minimally saturated with serosanguinous drainage, changed, incision c/d/i, no erythema or drainage, R distal thigh incision with dressing c/d/i, dressing changed no erythema or drainage noted. foot dressing removed, pt with mummified 2nd toe, 1st toe amp site with significant necrotic tissue, + purulent drainage expressed + foul odor. Vac: biphasic harry/pt A/P: 64 y/o M w/ PMHx DM, Schizophrenia, HTN, HLD, GERD, Dementia, EtOH s/p R great toe amputation now with 2nd digit gangrene, s/p POD 4, s/p Right femoral artery to above knee popliteal artery bypass with PTFE, Angiogram of right lower extremity. continues to be febrile overnight tachy, normotensive incisions stable blood cultures prelim negative no ucx, last UA 02/02 last cxr 02/07 foot appears to be the source of sepsis -planned for tma today with podiatry -continue abx per ID -dressing changes per podiatry -continue asa d/w attending Dr Pineda
[2020-02-23] MEDS: ERTAPENEM SODIUM 1 GM in SODIUM CHLORIDE 50 ML IVPB SCH (11:57)
--- NOTE | 2020-02-23 12:37 | PN ---
Progress Note (short form) - Note Progress Note: Podiatry F/U: Seen/evaluated at bedside NAD. Persistent fevers overnight into today. Highest was 103 F. I evaluated patient this morning and fever is 100F post-tylenol. He reports pain to the right foot. THEE: R foot: there is a first ray diabetic ulcer with exposed metatarsal stump. Underlying fibrotic slough present. Some tunnelling noted inferior to the metatarsal stump. There is no purulent drainage, no fluctuance, no soft tissue crepitus, no streaking ascending cellulitis, no signs of acute infection in the foot. Dry gangrenous changes to the second and third digits. Blood Cx: no growth x 24 hrs Imp: 64 year old diabetic PVD male s/p R Fem-pop bypass and right forefoot gangrene with osteomyelitis first ray Discussed case with OR staff and infectious disease. Will hold off on TMA and investigate source of fever. If the source is strictly the foot, will proceed with TMA tomorrow or . Will closely follow. Christian Cummins DPM
--- NOTE | 2020-02-23 12:42 | PN ---
Physical Exam: SUBJECTIVE: Patient seen and examined at the bedside. OBJECTIVE: dnr/dni per molst form dated/signed 12/23/2019 Patient is a 64 year old male with a significant past medical history of DM, schizophrenia, HTN, HLD, GERD, dementia, EtOH use disorder who had his right knee great toe amputated apx 1 month ago, presents to the ED on 02/03/2020 with right 2nd digit gangrene. At [facility] pt underwent RLE angiogram which revealed right SFA occlusion. He is being followed by vascular surgery and is s/p fem-pop bypass last week. covid status: negative as per serology 02/02 and 02/10/2020 Vital Signs Period Temp Pulse Resp BP Sys/Leahy Pulse Ox Last 24 Hr 98.5 F-102.4 F 102-112 18-22 116-144/69-80 95-99 GENERAL: The patient is awake, alert, in no acute distress. forgetful HEAD: Normal with no signs of trauma. EYES: PERRL, extraocular movements intact, sclera anicteric, conjunctiva clear. No ptosis. ENT: Ears normal, nares patent, oropharynx clear without exudates NECK: Trachea midline, full range of motion, supple. LUNGS: Breath sounds equal HEART: Regular rate and rhythm ABDOMEN: Soft, nontender, nondistended, normoactive bowel sounds EXTREMITIES: right foot dressing, for right 2nd digit gangrene. wound wrapped in aguilar. NEUROLOGICAL: Normal speech, gait not observed. PSYCH: Normal mood, normal affect Laboratory Results - last 24 hr 02/22/20 02/22/20 02/22/20 11:40 16:46 21:57 WBC RBC Hgb Hct MCV MCH MCHC RDW Plt Count MPV Absolute Neuts (auto) Neutrophils % Lymphocytes % Monocytes % Eosinophils % Basophils % Nucleated RBC % Sodium Potassium Chloride Carbon Dioxide Anion Gap BUN Creatinine Est GFR (CKD-EPI)AfAm Est GFR (CKD-EPI)NonAf POC Glucometer 227 246 Random Glucose Calcium Magnesium Total Bilirubin AST ALT Alkaline Phosphatase Total Protein Albumin COVID-19 (LESLIE) Not detected 02/23/20 02/23/20 02/23/20 05:45 07:05 07:05 WBC 14.6 H RBC 3.11 L Hgb 8.4 L Hct 25.8 L MCV 83.0 MCH 27.1 MCHC 32.6 RDW 15.6 Plt Count 254 MPV 8.2 Absolute Neuts (auto) 12.6 H Neutrophils % 86.7 H Lymphocytes % 5.6 L D Monocytes % 6.9 Eosinophils % 0.6 Basophils % 0.2 Nucleated RBC % 0 Sodium 137 Potassium 4.3 Chloride 105 Carbon Dioxide 25 Anion Gap 7 L BUN 29.9 H Creatinine 1.5 H Est GFR (CKD-EPI)AfAm 57.01 Est GFR (CKD-EPI)NonAf 49.19 POC Glucometer 193 Random Glucose 202 H Calcium 8.2 L Magnesium 2.0 Total Bilirubin 0.3 AST 14 L ALT 11 L Alkaline Phosphatase 80 Total Protein 6.4 Albumin 1.6 L COVID-19 (LESLIE) 02/23/20 11:59 WBC RBC Hgb Hct MCV MCH MCHC RDW Plt Count MPV Absolute Neuts (auto) Neutrophils % Lymphocytes % Monocytes % Eosinophils % Basophils % Nucleated RBC % Sodium Potassium Chloride Carbon Dioxide Anion Gap BUN Creatinine Est GFR (CKD-EPI)AfAm Est GFR (CKD-EPI)NonAf POC Glucometer 170 Random Glucose Calcium Magnesium Total Bilirubin AST ALT Alkaline Phosphatase Total Protein Albumin COVID-19 (LESLIE) Active Medications Generic Name Dose Route Start Last Admin Trade Name Freq PRN Reason Stop Dose Admin Acetaminophen 650 mg 02/19/20 19:58 02/23/20 09:59 Tylenol - PO 650 mg Q4H PRN Administration FEVER Amino Acids 30 ml 02/20/20 10:00 02/23/20 10:35 Prosource No Carb Liquid Pkt PO Not Given DAILY HUGO Artificial Tears 1 drop 02/20/20 18:33 02/21/20 01:57 Artificial Tears OU 1 drop Q6H PRN Administration DRY EYES Aspirin 81 mg 02/20/20 10:00 02/23/20 10:35 Asa - PO Not Given DAILY HUGO Atorvastatin Calcium 20 mg 02/19/20 22:00 02/22/20 21:49 Lipitor - PO 20 mg HS HUGO Administration Carvedilol 6.25 mg 02/19/20 22:00 02/23/20 10:00 Coreg - PO 6.25 mg BID HUGO Administration Digoxin 0.125 mg 02/20/20 10:00 02/23/20 10:00 Lanoxin - PO 0.125 mg DAILY HUGO Administration Docusate Sodium 100 mg 02/19/20 22:00 02/23/20 10:35 Colace - PO Not Given BID HUGO Famotidine 20 mg 02/19/20 22:00 02/23/20 10:00 Pepcid - PO 20 mg BID HUGO Administration Gabapentin 300 mg 02/19/20 22:00 02/23/20 05:08 Neurontin - PO Not Given TID HUGO Heparin Sodium (Porcine) 5,000 unit 02/19/20 22:00 02/22/20 10:25 Heparin - SQ 5,000 unit BID HUGO Administration Ertapenem 1 gm/ Sodium 50 mls @ 100 mls/hr 02/23/20 10:00 02/23/20 11:57 Chloride IVPB 100 mls/hr DAILY HUGO Administration Insulin Aspart 1 vial 02/19/20 22:00 02/23/20 11:57 Novolog Vial Sliding Scale - SQ Not Given ACHS [facility] Protocol Insulin Detemir 45 units 02/19/20 22:00 02/21/20 21:36 Levemir Vial SQ 45 units HS HUGO Administration Multivitamins/Minerals/Vitamin C 1 tab 02/20/20 10:00 02/23/20 10:35 Tab-A-Vit - PO Not Given DAILY [facility]GO Ondansetron HCl 4 mg 02/19/20 17:35 Zofran Injection IVPUSH Q6H PRN NAUSEA AND/OR VOMITING Polyethylene Glycol 17 gm 02/20/20 10:00 02/23/20 10:35 Miralax (For Daily Use) - PO Not Given DAILY [facility] Quetiapine Fumarate 50 mg 02/19/20 22:00 02/22/20 21:48 Seroquel - PO 50 mg HS HUGO Administration ASSESSMENT/PLAN: Problem List - Problems (1) Fever Assessment/Plan: patient continues with high grade fever, t max 103f blood cultures on 02/21/2020 negative urine culture and UA ordered chst xray ordered and pending on ertapenem per ID Code(s): R50.9 - FEVER, UNSPECIFIED (2) Diabetic foot infection Assessment/Plan: Patient has peripheral artery disease with right foot cellulitis/osteomyelitis status post right great amputation on IV antibiotic antibiotics discontinued by ID. patient is s/P RLE angiogram on 02/04, s/p fem bypass surgery on 02/17 neurontin TID continue lipitor collagenase dressing to RLE Code(s): E11.628 - TYPE 2 DIABETES MELLITUS WITH OTHER SKIN COMPLICATIONS; L08.9 - LOCAL INFECTION OF THE SKIN AND SUBCUTANEOUS TISSUE, UNSP (3) Anemia Assessment/Plan: Anemia of chronic disease Hemoglobin is stable monitor CBC daily type and screen completed repeat cbc prior to surgery Code(s): D64.9 - ANEMIA, UNSPECIFIED (4) CKD (chronic kidney disease) Assessment/Plan: monitor kidney function trend intake/output and electrolytes Code(s): N18.9 - CHRONIC KIDNEY DISEASE, UNSPECIFIED (5) Congestive heart failure Assessment/Plan: Patient has normal ejection fraction, continue coreg, and digoxin, Stress test completed on 02/09/2020 no signs of volume overload Code(s): I50.9 - HEART FAILURE, UNSPECIFIED Qualifiers: Heart failure type: unspecified (6) Hypertension Assessment/Plan: labile BP currently on coreq 6.25mg bid, digoxin 0.125mg daily Code(s): I10 - ESSENTIAL (PRIMARY) HYPERTENSION (7) Uncontrolled type 2 diabetes mellitus Assessment/Plan: BGMs improved, goal is to maintain fasting bgms<180 tightened sliding scale insulin on levemir 45 units at hs Code(s): E11.65 - TYPE 2 DIABETES MELLITUS WITH HYPERGLYCEMIA (8) DVT prophylaxis Assessment/Plan: heparin bid Code(s): Z29.9 - ENCOUNTER FOR PROPHYLACTIC MEASURES, UNSPECIFIED Visit type - Emergency Visit Emergency Visit: Yes ED Registration Date: 02/03/20 Care time: The patient presented to the Emergency Department on the above date and was hospitalized for further evaluation of their emergent condition. - New Patient This patient is new to me today: No - Critical Care Critical Care patient: No - Discharge Referral Referred to [facility] Med P.C.: No
--- NOTE | 2020-02-23 13:14 | PN ---
Progress Note (short form) - Note Progress Note: s: no cp sob palps dizzy Current Medications Generic Name Dose Route Start Last Admin Trade Name Freq PRN Reason Stop Dose Admin Acetaminophen 650 mg 02/19/20 19:58 02/23/20 09:59 Tylenol - PO 650 mg Q4H PRN Administration FEVER Amino Acids 30 ml 02/20/20 10:00 02/23/20 10:35 Prosource No Carb Liquid Pkt PO Not Given DAILY HUGO Artificial Tears 1 drop 02/20/20 18:33 02/21/20 01:57 Artificial Tears OU 1 drop Q6H PRN Administration DRY EYES Aspirin 81 mg 02/20/20 10:00 02/23/20 10:35 Asa - PO Not Given DAILY [facility] Atorvastatin Calcium 20 mg 02/19/20 22:00 02/22/20 21:49 Lipitor - PO 20 mg HS HUGO Administration Carvedilol 6.25 mg 02/19/20 22:00 02/23/20 10:00 Coreg - PO 6.25 mg BID HUGO Administration Digoxin 0.125 mg 02/20/20 10:00 02/23/20 10:00 Lanoxin - PO 0.125 mg DAILY [facility] Administration Docusate Sodium 100 mg 02/19/20 22:00 02/23/20 10:35 Colace - PO Not Given BID HUGO Famotidine 20 mg 02/19/20 22:00 02/23/20 10:00 Pepcid - PO 20 mg BID HUGO Administration Gabapentin 300 mg 02/19/20 22:00 02/23/20 05:08 Neurontin - PO Not Given TID [facility] Heparin Sodium (Porcine) 5,000 unit 02/19/20 22:00 02/22/20 10:25 Heparin - SQ 5,000 unit BID HUGO Administration Ertapenem 1 gm/ Sodium 50 mls @ 100 mls/hr 02/23/20 10:00 02/23/20 11:57 Chloride IVPB 100 mls/hr DAILY [facility] Administration Insulin Aspart 1 vial 02/19/20 22:00 02/23/20 11:57 Novolog Vial Sliding Scale - SQ Not Given ACHS [facility] Protocol Insulin Detemir 45 units 02/19/20 22:00 02/21/20 21:36 Levemir Vial SQ 45 units HS HUGO Administration Multivitamins/Minerals/Vitamin C 1 tab 02/20/20 10:00 02/23/20 10:35 Tab-A-Vit - PO Not Given DAILY [facility] Ondansetron HCl 4 mg 02/19/20 17:35 Zofran Injection IVPUSH Q6H PRN NAUSEA AND/OR VOMITING Polyethylene Glycol 17 gm 02/20/20 10:00 02/23/20 10:35 Miralax (For Daily Use) - PO Not Given DAILY [facility] Quetiapine Fumarate 50 mg 02/19/20 22:00 02/22/20 21:48 Seroquel - PO 50 mg HS HUGO Administration Vital Signs Period Temp Pulse Resp BP Sys/Leahy Pulse Ox Last 24 Hr 98.5 F-102.4 F 102-112 18-22 116-144/69-80 95-99 Constitutional: Yes: Well Nourished, No Distress Eyes: No: Sclera Icterus HENT: No: Nasal Congestion Respiratory: Yes: CTA Bilaterally. No: Accessory Muscle Use, Rales, Wheezes Gastrointestinal: Yes: Normal Bowel Sounds. No: Distention, Hepatomegaly, Palpable Mass, Tenderness Cardiovascular: Yes: Regular Rate and Rhythm JVD: No Heart Sounds: Yes: S1, S2. No: Gallop Murmur: No: Systolic Murmur, Diastolic Murmur Edema: No Integumentary: No: Jaundice Neurological: Yes: Alert. No: Seizure Psychiatric: No: Agitated Assessment/Plan echo 01/2020: normal LVEF, nl RV, nl valve function. CXR: ATX vs infiltrate R base, no effusions/congestion mibi 01/2020 mod sized area of inferolateral scar, no ischemia, EF 45% preop CV eval, PAD: -s/p R. Fem-Pop: tolerated surgery well, hemodynamically stable but now with fevers and plan for repeat OR for amputation for gangrene of foot -cannot evaluate for cardiac sx's due to his mental capacity -mult RFs for CAD/cardiomyopathy including DM, prior etoh abuse, age -recent echo unremarkable - mibi shows inferolateral scar, no ischemia - continue statin, plavix as medical management for likely underlying CAD -on digoxin for unclear indication, level ok here, continue - patient is at acceptable risk for vascular surgery/amputation, no further cardiac testing prior to procedure DM: -per hospitalist HTN: -cont present meds HPL: -cont statin
--- NOTE | 2020-02-23 14:02 | OP ---
DATE OF OPERATION: 02/18/2020 PREOPERATIVE DIAGNOSIS: Right foot gangrene. POSTOPERATIVE DIAGNOSIS: Right foot gangrene. PROCEDURE: Right femoral artery to popliteal artery bypass with polytetrafluoroethylene (PTFE) with right lower extremity angiogram. SURGEON: Thien Pineda DO DERRICK BOAT RUNNER: JEWELS Shields BLOOD LOSS: 200 mL INDICATIONS: Patient is a 64-year-old male that was seen in [facility] on our rounds. He had been at [facility] where he had received a partial right foot amputation of his 1st ray. He had also had a right femoral artery endarterectomy. He was then sent to [facility] where on wound care rounds he was evaluated and his right foot was not healing. His right foot continued to progress and his 2nd and 3rd toes now became gangrenous and he was transferred to [facility]. Here he had a CO2 angiogram performed of his right lower extremity showing that his entire SFA from the proximal to the mid to distal t high was occluded and the distal SFA comes back above the knee and in the adductor canal and the patient has popliteal artery that is patent and the patient has 2-vessel runoff to the foot, but mainly the posterior tibial artery. At this point patient got medical and cardiology clearance and the only way to save the patient's foot would be to do a right femoral artery to above-knee popliteal artery bypass with PTFE to bring more blood flow down to the foot. Patient's brother is consenting for the procedure, understanding all risks, benefits and alternatives, understanding the risks of bleeding, infection, clot formation and risk of amputation. DESCRIPTION OF PROCEDURE: Patient was then brought to the operating room and general anesthesia was administered to the patient. A Rizvi catheter was placed. We then went ahead and made an incision over the common femoral artery in the right groin. Bovie electrocautery was used to control hemostasis. We were able to get down through all the subcutaneous tissue and get to the femoral sheath. Femoral sheath was opened and we were able to dissect out the common femoral artery and vessel loops were placed around it proximally and distally. We then went to the distal thigh and we made a 5-cm incision over our SFA which was marked prior using ultrasound guidance. We then went ahead and used Bovie electrocautery and we were able to get through all the subcutaneous tissue and get down through his fascia. Using Weitlaner clamps we were able to gain exposure and we were able to dissect out the femoral artery. The femoral or SFA artery was dissected anterior and posteriorly and vessel loops were placed proximally and distally. We then went ahead and used a 6 x 80 PTFE PROPATEN graft and we tunneled it under the sartorius muscle and brought it up to the common femoral artery. We then beveled the graft to 1 cm. We then went ahead and administered 5000 units of IV heparin to the patient. We then got distal and proximal control on the common femoral artery and we made an arteriotomy using a 15-blade and using Ruffin scissors made a 1 cm incision and 6-0 Prolene stay sutures were placed. We then used 6-0 Prolene double-arm and we were able to suture the graft. We went outside in on the graft and inside out on the artery, and in a 4-quadrant technique we were able to suture the graft onto the artery. Once completed, we opened the distal artery first and then the proximal artery and there was good flow in our graft. We flushed our PTFE graft with heparinized saline and then clamped the graft with a vascular clamp. We then went ahead and cut our graft to size. We then went ahead and got distal and proximal control on our distal SFA. We then went ahead and using a 15-blade made an arteriotomy, extending it to 1 cm using Ruffin scissors. Prolene 6-0 stay sutures were placed. We then beveled our graft to 1 cm. We then went ahead and used 6-0 Prolene double-arm, went outside in on the graft and inside out on the artery in a 4-quadrant fashion, made anastomosis between the artery and the graft. Once completed, we opened the distal artery first, then the proximal artery and we then opened our graft. There was good flow in our graft and there was a good dopplerable signal distally in the distal SFA. We then went ahead and went up to the groin and using a butterfly needle we stuck the proximal AV graft and we shot an angiogram showing that the graft was patent. The distal anastomosis was patent and there was a runoff into the foot, mainly the PT. At this point we placed a [id number]-zc-lnsol stitch using a 6-0 Prolene around our needle and removed it. We then went ahead and irrigated both wounds copiously. Vicryl 3-0 was used and the subcutaneous tissue was approximated in an interrupted manner and the skin was closed with skin agnes for both wounds. The 4 x 4's and Tegaderms were placed. Patient tolerated the procedure with no complications. Patient transferred to PACU in stable condition. THIEN PINEDA DO [id number]
[2020-02-23] MEDS ORDERED: INSULIN (NOVOLOG) ASPART 100 UNITS/ML 10ML VIAL ONE ×2 (15:58→17:39)
--- NOTE | 2020-02-23 16:14 | PN ---
Progress Note (short form) - Note Progress Note: asked to see by the nurse who called me last night for iv antibioitcs fevers since 02/18 s/p right fempop 02/17 Vital Signs Period Temp Pulse Resp BP Sys/Leahy Pulse Ox Last 24 Hr 99.1 F-102.4 F 99-112 18-20 131-144/73-80 95-99 cor-rrr lungs decreased bs at bases abd soft,nt ext right foot exposed ulcer no drainage right fempop site no erythema or drainage CBC, BMP 02/23/20 07:05 02/23/20 07:05 Microbiology 02/21/20 15:23 Blood - Peripheral Venous Blood Culture - Preliminary NO GROWTH OBTAINED AFTER 48 HOURS, INCUBATION TO CONTINUE FOR 3 DAYS. 02/21/20 15:35 Blood - Peripheral Venous Blood Culture - Preliminary NO GROWTH OBTAINED AFTER 48 HOURS, INCUBATION TO CONTINUE FOR 3 DAYS. 02/05/20 07:50 Blood - Peripheral Venous Blood Culture - Final NO GROWTH AFTER 5 DAYS INCUBATION 02/05/20 08:08 Blood - Peripheral Venous Blood Culture - Final NO GROWTH AFTER 5 DAYS INCUBATION 02/03/20 13:05 Blood - Peripheral Venous Blood Culture - Final NO GROWTH AFTER 5 DAYS INCUBATION 02/03/20 13:05 Blood - Peripheral Venous Blood Culture - Final NO GROWTH AFTER 5 DAYS INCUBATION 02/03/20 16:20 Toe - Right Hallux Gram Stain - Final 02/03/20 16:20 Toe - Right Hallux Wound Culture - Final Klebsiella Pneumoniae - Esbl Proteus Mirabilis Enterococcus Faecalis a/p diabetic foot ulcer PVD nonhealing wound gangrenous second toe dementia back on ertapenem for the foot cxray no pneumonia will follow Problem List - Problems (1) Fever Code(s): R50.9 - FEVER, UNSPECIFIED (2) Diabetic foot infection Code(s): E11.628 - TYPE 2 DIABETES MELLITUS WITH OTHER SKIN COMPLICATIONS; L08.9 - LOCAL INFECTION OF THE SKIN AND SUBCUTANEOUS TISSUE, UNSP (3) PVD (peripheral vascular disease) Code(s): I73.9 - PERIPHERAL VASCULAR DISEASE, UNSPECIFIED (4) CKD (chronic kidney disease) Code(s): N18.9 - CHRONIC KIDNEY DISEASE, UNSPECIFIED (5) Anemia Code(s): D64.9 - ANEMIA, UNSPECIFIED
[2020-02-23 19:23] LABS: EPI CELLS 6 /uL (0-25.1); HYALINE CASTS 4 /uL (0-3.1); PH,URINE 5.5 (5.0-8.0); URINE APPEARANCE CLEAR; URINE BACTERIA 130 /uL (0-1359); URINE BILIRUBIN NEGATIVE (NEGATIVE); URINE COLOR YELLOW; URINE GLUCOSE (UA) NEGATIVE (NEGATIVE); URINE KETONE NEGATIVE (NEGATIVE); URINE LEUK ESTERASE NEGATIVE (NEGATIVE); URINE NITRITE NEGATIVE (NEGATIVE); URINE PROTEIN 2+ (NEGATIVE); URINE RBC 12 /uL (0-23.9); URINE UROBILINOGEN 0.2 mg/dL (0.2-1.0)
[2020-02-23 20:20] LABS: URINE WBC 143.2 /uL (0-25.8); YEAST FEW (NEGATIVE)
[2020-02-23] MEDS: ATORVASTATIN CA 20 MG TABLET (FP) PO SCH (21:29)
[2020-02-23] MEDS: QUEtiapine FUMARATE 25 MG TABLET PO SCH (21:30)
[2020-02-24] MEDS: ACETAMINOPHEN 325 MG TABLET (FP) PO PRN (02:07)
[2020-02-24] MEDS ORDERED: PT OWN MED DRAWER 7, Y5N ONE ×2 (05:16→09:37)
[2020-02-24] MEDS: GABAPENTIN 300 MG CAPSULE PO SCH ×3 (06:08→22:25)
[2020-02-24] MEDS: INSULIN SLIDING SCALE (NOVOLOG) 1 VIAL SQ SCH ×4 (06:09→22:24)
--- NOTE | 2020-02-24 09:39 | PN ---
Progress Note (short form) - Note Progress Note: POD 6, s/p Right femoral artery to above knee popliteal artery bypass with PTFE. Angiogram of right lower extremity Pt seen and examined on AM rounds. He has continued to have low grade fevers overnight. Has not been oob. Tolerating PO, liang in place. Denies cp/sob, n/v/d. Vital Signs Temp 99.8 F H 02/24/20 06:00 Pulse 102 H 02/24/20 06:00 Resp 18 02/24/20 06:00 BP 129/61 02/24/20 06:00 Pulse Ox 96 02/24/20 06:00 Intake & Output 02/23/20 02/23/20 02/24/20 11:59 23:59 11:59 Intake Total 50 50 Output Total 144 508 3915 Balance -350 -700 -1550 Intake: IVPB 50 50 Output: Urine 308 680 5977 Liang 641 418 6008 Other: Voiding Method External Catheter External Catheter Indwelling Catheter Bowel Movement Yes Yes Yes # Bowel Movements 1 CBC, BMP 02/23/20 07:05 02/23/20 07:05 Gen: awake, lethargic but rousable Resp: unlabored on RA Abd: soft, nt/nd Ext: R groin with palpable hematoma, appears stable, dressing with scant ss d/c, incision c/d/i with agnes insitu no erythema or drainage, right thigh soft and supple. R distal thigh dressing c/d/i, no erythema or drainage noted. foot dressing removed, pt with mummified 2nd toe, 1st toe amp site with significant necrotic tissue, no significant purulent drainage expressed + foul odor. Vac: biphasic harry/pt <Karolina Castano. - Last Filed: 02/24/20 15:20> - Note Progress Note: Surgery team was contacted by Dr. Neal for concern of drainage from pt groin. Upon exam it was noted copious brownish cloudy drainage from Rt groin incision, no erythema or induration around incision. Drainage could be infected hematoma as there is concern of possible pus mixed with drainage, pt also had a fair amount of surgicel placed into the wound so it could be cause of the cloudiness. Wound cultures were taken and CT of the pelvis ordered. Will follow up the cultures and CT scan, to evalute if drainage is source of infection, although his foot could continue to be the source. Pt discussed with Dr. Pineda who agrees with plan <Tc Fields - Last Filed: 02/24/20 16:47> Problem List - Problems (1) Gangrene of toe of right foot Assessment/Plan: A/P: 64 y/o M w/ PMHx DM, Schizophrenia, HTN, HLD, GERD, Dementia, EtOH s/p R great toe amputation now with 2nd digit gangrene, s/p POD 4, s/p Right femoral artery to above knee popliteal artery bypass with PTFE, Angiogram of right lower extremity. continues to be febrile overnight tachy, normotensive incisions stable blood cultures prelim negative foot appears to be the source of sepsis -planned for tma with podiatry tomorrow vs Saturday -continue abx per ID -dressing changes per podiatry -continue asa d/w attending Dr Pineda Code(s): I96 - GANGRENE, NOT ELSEWHERE CLASSIFIED <Karolina Castano - Last Filed: 02/24/20 15:20>
[2020-02-24] MEDS: MULTIVITAMINS (DAILY MVI) TABLET (FP) PO SCH (09:41)
[2020-02-24] MEDS: FAMOTIDINE 20 MG TABLET PO SCH ×2 (09:41→22:25)
[2020-02-24] MEDS: ERTAPENEM SODIUM 1 GM in SODIUM CHLORIDE 50 ML IVPB SCH (09:41)
[2020-02-24] MEDS: AMINO ACIDS/PROTEIN HYDROLYS 30 ML LIQUID.PKT PO SCH (09:41)
[2020-02-24] MEDS: DOCUSATE SODIUM 100 MG CAPSULE (FP) PO SCH ×2 (09:41→22:25)
[2020-02-24] MEDS: DIGOXIN 0.125 MG TABLET (FP) PO SCH (09:41)
[2020-02-24] MEDS: ASPIRIN 81 MG CHEWABLE TABLETS PO SCH (09:41)
[2020-02-24] MEDS: POLYETHYLENE GLYCOL 3350 119 GM BTL PO SCH (09:41)
[2020-02-24] MEDS: CARVEDILOL 6.25 MG TABLET (FP) PO SCH ×2 (09:41→22:25)
--- NOTE | 2020-02-24 10:36 | CONS ---
DATE OF CONSULTATION: DATE OF DICTATION: 02/24/2020 Patient is a 64-year-old male admitted via the emergency room on February 03, 2020. He does have history of diabetes, schizophrenia, high blood pressure, high cholesterol, GERD, dementia, ethanol abuse, right great toe amputation. Three weeks prior to admission he underwent a right femoropopliteal bypass with PTFE after undergoing an angiogram which revealed a right superficial femoral artery occlusion. The patient has also been complaining of prostatism including urinary frequency, urgency, hesitancy, terminal dribbling. A Rizvi catheter was placed. The patient's white count is now 14,600. Hemoglobin is 8.4 and hematocrit 25.8. BUN is 29.9 and creatinine 1.5. Urine is negative for blood and negative for nitrites. Wound cultures grew out ESBL Klebsiella pneumoniae, Proteus mirabilis and Enterococcus faecalis. Urine culture is pending. The patient denies any previous prostate procedures. A renal ultrasound performed on January 29 revealed a 5-mm nonobstructing right renal stone. Both kidneys appeared normal. Presently the patient's Rizvi is patent. His urine is clear. I would recommend placing the patient on Flomax 0.4 mg p.o. daily. Will then give trial of voiding. Will follow closely with you. Faye [id number]
[2020-02-24] MEDS ORDERED: TAMSULOSIN HCL 0.4 MG CAP PO ONE ×2 (10:45→16:19)
--- NOTE | 2020-02-24 11:28 | PN ---
Progress Note (short form) - Note Progress Note: Podiatry F/U; Seen/evaluated at bedside NAD. Fevers are persistent overnight into today. ID input appreciated. Currently with low grade temp. S/p RLE fem-pop bypass with Dr. Pineda. THEE: R foot: First ray diabetic arterial ulcer with exposed first metatarsal, significant fibrotic slough. Some tunnelling noted inferior aspect of metatarsal stump. No purulent drainage, no fluctuance, no streaking ascending cellulitis, no soft tissue crepitus, no signs of active infection. Moderate tenderness elicited on palpation. Dry gangrenous changes to the second and third digit with mummification. Imp: 64 year old diabetic male with right first ray diabetic ulcer, osteomyelitis and gangrene 2nd/3rd digits 1. IV abx per infectious disease 2. Continue local care 3. D/w Infectious Disease. Source of fevers seems to be the foot. Will plan for TMA tomorrow or Saturday. Will discuss with patient's brother who serves as HCP. 4. Will follow. Christian Cummins DPM
--- NOTE | 2020-02-24 12:32 | PN ---
Physical Exam: SUBJECTIVE: Patient seen and examined. he feels weak and having fevers. OBJECTIVE: Patient is a 64 year old male with a significant past medical history of DM, schizophrenia, HTN, HLD, GERD, dementia, EtOH use disorder who had his right knee great toe amputated apx 1 month ago, presents to the ED on 02/03/2020 with right 2nd digit gangrene. At [facility] pt underwent RLE angiogram which revealed right SFA occlusion. He is being followed by vascular surgery and is s/p fem-pop bypass last week. Patient for a planned TMA tomorrow or Saturday ------ dnr/dni per molst form dated/signed 12/23/2019 covid status: negative as per serology 02/02 and 02/10/2020 tylenol 1000mg ivpb once now for fevers. Period Temp Pulse Resp BP Sys/Leahy Pulse Ox Last 24 Hr 98.2 F-102.4 F 99-112 18-18 129-166/61-83 96-98 GENERAL: The patient is awake, alert, in no acute distress. forgetful HEAD: Normal with no signs of trauma. EYES: PERRL, extraocular movements intact, sclera anicteric, conjunctiva clear. No ptosis. ENT: Ears normal, nares patent, oropharynx clear without exudates NECK: Trachea midline, full range of motion, supple. LUNGS: Breath sounds equal HEART: Regular rate and rhythm ABDOMEN: Soft, nontender, nondistended, normoactive bowel sounds EXTREMITIES: right foot dressing, for right 2nd and 3rd digit gangrene. wound wrapped in aguilar. NEUROLOGICAL: Normal speech, gait not observed. PSYCH: Normal mood, normal affect Laboratory Results - last 24 hr 02/23/20 02/23/20 02/23/20 16:58 18:20 21:29 POC Glucometer 219 327 Urine Color Yellow Urine Appearance Clear Urine pH 5.5 Ur Specific [place] 1.020 Urine Protein 2+ H Urine Glucose (UA) Negative Urine Ketones Negative Urine Blood Negative Urine Nitrite Negative Urine Bilirubin Negative Urine Urobilinogen 0.2 Ur Leukocyte Esterase Negative Urine WBC (Auto) 143.2 Urine RBC (Auto) 12 Urine Casts (Auto) 4 U Epithel Cells (Auto) 6 Urine Bacteria (Auto) 130 Urine Yeast (Auto) Few 02/24/20 02/24/20 06:08 11:41 POC Glucometer 326 370 Urine Color Urine Appearance Urine pH Ur Specific [place] Urine Protein Urine Glucose (UA) Urine Ketones Urine Blood Urine Nitrite Urine Bilirubin Urine Urobilinogen Ur Leukocyte Esterase Urine WBC (Auto) Urine RBC (Auto) Urine Casts (Auto) U Epithel Cells (Auto) Urine Bacteria (Auto) Urine Yeast (Auto) Active Medications Generic Name Dose Route Start Last Admin Trade Name Freq PRN Reason Stop Dose Admin Acetaminophen 650 mg 02/19/20 19:58 02/24/20 02:07 Tylenol - PO 650 mg Q4H PRN Administration FEVER Amino Acids 30 ml 02/20/20 10:00 02/24/20 09:41 Prosource No Carb Liquid Pkt PO 30 ml DAILY HUGO Administration Artificial Tears 1 drop 02/20/20 18:33 02/21/20 01:57 Artificial Tears OU 1 drop Q6H PRN Administration DRY EYES Aspirin 81 mg 02/20/20 10:00 02/24/20 09:41 Asa - PO 81 mg DAILY HUGO Administration Atorvastatin Calcium 20 mg 02/19/20 22:00 02/23/20 21:29 Lipitor - PO 20 mg HS HUGO Administration Carvedilol 6.25 mg 02/19/20 22:00 02/24/20 09:41 Coreg - PO 6.25 mg BID HUGO Administration Digoxin 0.125 mg 02/20/20 10:00 02/24/20 09:41 Lanoxin - PO 0.125 mg DAILY HUGO Administration Docusate Sodium 100 mg 02/19/20 22:00 02/24/20 09:41 Colace - PO 100 mg BID HUGO Administration Famotidine 20 mg 02/19/20 22:00 02/24/20 09:41 Pepcid - PO 20 mg BID HUGO Administration Gabapentin 300 mg 02/19/20 22:00 02/24/20 06:08 Neurontin - PO 300 mg TID HUGO Administration Heparin Sodium (Porcine) 5,000 unit 02/19/20 22:00 02/22/20 10:25 Heparin - SQ 5,000 unit BID HUGO Administration Ertapenem 1 gm/ Sodium 50 mls @ 100 mls/hr 02/23/20 10:00 02/24/20 09:41 Chloride IVPB 100 mls/hr DAILY HUGO Administration Insulin Aspart 1 vial 02/19/20 22:00 02/24/20 11:44 Novolog Vial Sliding Scale - SQ 10 units ACHS HUGO Administration Protocol Insulin Detemir 45 units 02/19/20 22:00 02/21/20 21:36 Levemir Vial SQ 45 units HS HUGO Administration Multivitamins/Minerals/Vitamin C 1 tab 02/20/20 10:00 02/24/20 09:41 Tab-A-Vit - PO 1 tab DAILY HUGO Administration Ondansetron HCl 4 mg 02/19/20 17:35 Zofran Injection IVPUSH Q6H PRN NAUSEA AND/OR VOMITING Polyethylene Glycol 17 gm 02/20/20 10:00 02/24/20 09:41 Miralax (For Daily Use) - PO 17 gm DAILY HUGO Administration Quetiapine Fumarate 50 mg 02/19/20 22:00 02/23/20 21:30 Seroquel - PO 50 mg HS HUGO Administration ASSESSMENT/PLAN: Problem List - Problems (1) Fever Assessment/Plan: patient continues with fevers blood cultures on 02/21/2020 negative urine culture pending UA negative chst xray with poor inspiration, no other acute pathology on ertapenem per ID for TMA tomorrow vs Saturday Code(s): R50.9 - FEVER, UNSPECIFIED (2) Diabetic foot infection Assessment/Plan: Patient has peripheral artery disease with right foot cellulitis/osteomyelitis status post right great amputation on IV antibiotic antibiotics discontinued by ID. patient is s/P RLE angiogram on 02/04, s/p fem bypass surgery on 02/17 neurontin TID continue lipitor collagenase dressing to RLE Code(s): E11.628 - TYPE 2 DIABETES MELLITUS WITH OTHER SKIN COMPLICATIONS; L08.9 - LOCAL INFECTION OF THE SKIN AND SUBCUTANEOUS TISSUE, UNSP (3) Anemia Assessment/Plan: Anemia of chronic disease Hemoglobin is stable monitor CBC daily type and screen completed repeat cbc prior to surgery Code(s): D64.9 - ANEMIA, UNSPECIFIED (4) CKD (chronic kidney disease) Assessment/Plan: monitor kidney function trend intake/output and electrolytes Code(s): N18.9 - CHRONIC KIDNEY DISEASE, UNSPECIFIED (5) Congestive heart failure Assessment/Plan: Patient has normal ejection fraction, continue coreg, and digoxin, Stress test completed on 02/09/2020 no signs of volume overload Code(s): I50.9 - HEART FAILURE, UNSPECIFIED Qualifiers: Heart failure type: unspecified (6) Hypertension Assessment/Plan: labile BP currently on coreq 6.25mg bid, digoxin 0.125mg daily Code(s): I10 - ESSENTIAL (PRIMARY) HYPERTENSION (7) Uncontrolled type 2 diabetes mellitus Assessment/Plan: BGMs improved, goal is to maintain fasting bgms<180 tightened sliding scale insulin on levemir 45 units at hs Code(s): E11.65 - TYPE 2 DIABETES MELLITUS WITH HYPERGLYCEMIA (8) DVT prophylaxis Assessment/Plan: heparin bid Code(s): Z29.9 - ENCOUNTER FOR PROPHYLACTIC MEASURES, UNSPECIFIED Visit type - Emergency Visit Emergency Visit: Yes ED Registration Date: 02/03/20 Care time: The patient presented to the Emergency Department on the above date and was hospitalized for further evaluation of their emergent condition. - New Patient This patient is new to me today: No - Critical Care Critical Care patient: No - Discharge Referral Referred to [facility] No
--- NOTE | 2020-02-24 12:51 | PN ---
Progress Note (short form) - Note Progress Note: s: no cp sob palps dizzy Current Medications Generic Name Dose Route Start Last Admin Trade Name Freq PRN Reason Stop Dose Admin Acetaminophen 650 mg 02/19/20 19:58 02/24/20 02:07 Tylenol - PO 650 mg Q4H PRN Administration FEVER Amino Acids 30 ml 02/20/20 10:00 02/24/20 09:41 Prosource No Carb Liquid Pkt PO 30 ml DAILY HUGO Administration Artificial Tears 1 drop 02/20/20 18:33 02/21/20 01:57 Artificial Tears OU 1 drop Q6H PRN Administration DRY EYES Aspirin 81 mg 02/20/20 10:00 02/24/20 09:41 Asa - PO 81 mg DAILY HUGO Administration Atorvastatin Calcium 20 mg 02/19/20 22:00 02/23/20 21:29 Lipitor - PO 20 mg HS HUGO Administration Carvedilol 6.25 mg 02/19/20 22:00 02/24/20 09:41 Coreg - PO 6.25 mg BID HUGO Administration Digoxin 0.125 mg 02/20/20 10:00 02/24/20 09:41 Lanoxin - PO 0.125 mg DAILY HUGO Administration Docusate Sodium 100 mg 02/19/20 22:00 02/24/20 09:41 Colace - PO 100 mg BID HUGO Administration Famotidine 20 mg 02/19/20 22:00 02/24/20 09:41 Pepcid - PO 20 mg BID HUGO Administration Gabapentin 300 mg 02/19/20 22:00 02/24/20 06:08 Neurontin - PO 300 mg TID HUGO Administration Heparin Sodium (Porcine) 5,000 unit 02/19/20 22:00 02/22/20 10:25 Heparin - SQ 5,000 unit BID HUGO Administration Ertapenem 1 gm/ Sodium 50 mls @ 100 mls/hr 02/23/20 10:00 02/24/20 09:41 Chloride IVPB 100 mls/hr DAILY HUGO Administration Insulin Aspart 1 vial 02/19/20 22:00 02/24/20 11:44 Novolog Vial Sliding Scale - SQ 10 units ACHS HUGO Administration Protocol Insulin Detemir 45 units 02/19/20 22:00 02/21/20 21:36 Levemir Vial SQ 45 units HS HUGO Administration Multivitamins/Minerals/Vitamin C 1 tab 02/20/20 10:00 02/24/20 09:41 Tab-A-Vit - PO 1 tab DAILY HUGO Administration Ondansetron HCl 4 mg 02/19/20 17:35 Zofran Injection IVPUSH Q6H PRN NAUSEA AND/OR VOMITING Polyethylene Glycol 17 gm 02/20/20 10:00 02/24/20 09:41 Miralax (For Daily Use) - PO 17 gm DAILY HUGO Administration Quetiapine Fumarate 50 mg 02/19/20 22:00 02/23/20 21:30 Seroquel - PO 50 mg HS HUGO Administration Vital Signs Period Temp Pulse Resp BP Sys/Leahy Pulse Ox Last 24 Hr 98.2 F-102.4 F 99-112 18-18 129-166/61-83 96-98 Constitutional: Yes: Well Nourished, No Distress Eyes: No: Sclera Icterus HENT: No: Nasal Congestion Respiratory: Yes: CTA Bilaterally. No: Accessory Muscle Use, Rales, Wheezes Gastrointestinal: Yes: Normal Bowel Sounds. No: Distention, Hepatomegaly, Palpable Mass, Tenderness Cardiovascular: Yes: Regular Rate and Rhythm JVD: No Heart Sounds: Yes: S1, S2. No: Gallop Murmur: No: Systolic Murmur, Diastolic Murmur Edema: No Integumentary: No: Jaundice Neurological: Yes: Alert. No: Seizure Psychiatric: No: Agitated Assessment/Plan echo 01/2020: normal LVEF, nl RV, nl valve function. CXR: ATX vs infiltrate R base, no effusions/congestion mibi 01/2020 mod sized area of inferolateral scar, no ischemia, EF 45% preop CV eval, PAD: -s/p R. Fem-Pop: tolerated surgery well, hemodynamically stable but now with fevers and plan for repeat OR for amputation for gangrene of foot -cannot evaluate for cardiac sx's due to his mental capacity -mult RFs for CAD/cardiomyopathy including DM, prior etoh abuse, age -recent echo unremarkable - mibi shows inferolateral scar, no ischemia - continue statin, plavix as medical management for likely underlying CAD -on digoxin for unclear indication, level ok here, continue - patient is at acceptable risk for vascular surgery/amputation, no further cardiac testing prior to procedure DM: -per hospitalist HTN: -cont present meds HPL: -cont statin
[2020-02-24] MEDS ORDERED: ACETAMINOPHEN 1000 MG/100 ML VIAL (NON FORMULARY) IVPB ONE ×2 (13:30→21:05)
--- NOTE | 2020-02-24 15:38 | PN ---
Progress Note (short form) - Note Progress Note: persistent fevers now with drainage from right groin fevers since 02/18 s/p right fempop 02/17 Vital Signs Period Temp Pulse Resp BP Sys/Leahy Pulse Ox Last 24 Hr 98.2 F-102.4 F 99-112 18-20 118-166/61-83 96-98 cor-rrr lungs clear abd soft,nt +dark cloudy brown purulent drainage from the right groin incision foot with dressing intact CBC, BMP 02/23/20 07:05 02/23/20 07:05 Microbiology 02/21/20 15:23 Blood - Peripheral Venous Blood Culture - Preliminary NO GROWTH OBTAINED AFTER 48 HOURS, INCUBATION TO CONTINUE FOR 3 DAYS. 02/21/20 15:35 Blood - Peripheral Venous Blood Culture - Preliminary NO GROWTH OBTAINED AFTER 48 HOURS, INCUBATION TO CONTINUE FOR 3 DAYS. 02/05/20 07:50 Blood - Peripheral Venous Blood Culture - Final NO GROWTH AFTER 5 DAYS INCUBATION 02/05/20 08:08 Blood - Peripheral Venous Blood Culture - Final NO GROWTH AFTER 5 DAYS INCUBATION 02/03/20 13:05 Blood - Peripheral Venous Blood Culture - Final NO GROWTH AFTER 5 DAYS INCUBATION 02/03/20 13:05 Blood - Peripheral Venous Blood Culture - Final NO GROWTH AFTER 5 DAYS INCUBATION 02/03/20 16:20 Toe - Right Hallux Gram Stain - Final 02/03/20 16:20 Toe - Right Hallux Wound Culture - Final Klebsiella Pneumoniae - Esbl Proteus Mirabilis Enterococcus Faecalis a/p r/o wound infection/absces/infected hematoma at groin site from fempop pelvic ct to r/o abscess spoke with PA - surgery to re-evaluate on ertapenem, will add vancomycin after wuond culture and bloood cutures are sent diabetic foot ulcer PVD nonhealing wound gangrenous second toe dementia Problem List - Problems (1) Fever Code(s): R50.9 - FEVER, UNSPECIFIED (2) Diabetic foot infection Code(s): E11.628 - TYPE 2 DIABETES MELLITUS WITH OTHER SKIN COMPLICATIONS; L08.9 - LOCAL INFECTION OF THE SKIN AND SUBCUTANEOUS TISSUE, UNSP (3) PVD (peripheral vascular disease) Code(s): I73.9 - PERIPHERAL VASCULAR DISEASE, UNSPECIFIED (4) CKD (chronic kidney disease) Code(s): N18.9 - CHRONIC KIDNEY DISEASE, UNSPECIFIED (5) Anemia Code(s): D64.9 - ANEMIA, UNSPECIFIED
[2020-02-24] MEDS ORDERED: VANCOMYCIN 1 GRAM (PRE-DOCKED) 1,000 MG/250 ML BAG IVPB ONE (15:41)
--- NOTE | 2020-02-24 17:51 | PN ---
Progress Note (short form) - Note Progress Note: Podiatry Brief Note: Case discussed at length with ID; source of infection seems to be the foot. I discussed treatment options with patient's brother who is HCP. He is amenable to planned procedure, which is TMA right foot. NPO after midnight for OR tomorrow. Christian Cummins DPM
[2020-02-24 19:36] LABS: BASO % 0.2 % (0-2.0); EOS % 0.9 % (0-4.5); HEMATOCRIT 24.6 % (35.4-49); LYMPH % 6.6 % (8-40); MCH 27.5 pg (25.7-33.7); MCHC 32.6 g/dl (32.0-35.9); MEAN CELL VOLUME 84.4 fl (80-96); MEAN PLT VOLUME 8.2 fl (7.5-11.1); MONO % 4.1 % (3.8-10.2); NEUT % 88.2 % (42.8-82.8); PLATELET COUNT 253 K/MM3 (134-434); RBC 2.92 M/mm3 (4.00-5.60); RDW 15.8 % (11.9-15.9); WHITE BLOOD COUNT 10.7 K/mm3 (4.0-10.0)
[2020-02-24 20:11] LABS: ALBUMIN 1.5 g/dl (3.4-5.0); BILIRUBIN,TOTAL 0.3 mg/dL (0.2-1); CALCIUM 8.5 mg/dL (8.5-10.1); CREATININE 1.7 mg/dL (0.55-1.3); MAGNESIUM 2.2 mg/dL (1.8-2.4); POTASSIUM 4.4 mmol/L (3.5-5.1); TOT PROT 6.5 g/dl (6.4-8.2)
[2020-02-24] MEDS: INSULIN (LEVEMIR) 100 UNITS/ML UNITS SQ SCH (22:01)
[2020-02-24] MEDS: HEPARIN NA (PORCINE) 5,000 UNITS/ML 1ML VIAL SQ SCH (22:01)
[2020-02-24] MEDS: QUEtiapine FUMARATE 25 MG TABLET PO SCH (22:26)
[2020-02-24] MEDS: ATORVASTATIN CA 20 MG TABLET (FP) PO SCH (22:26)
[2020-02-25] MEDS: GABAPENTIN 300 MG CAPSULE PO SCH ×3 (06:32→21:18)
[2020-02-25] MEDS: INSULIN SLIDING SCALE (NOVOLOG) 1 VIAL SQ SCH ×3 (06:33→21:26)
[2020-02-25] MEDS ORDERED: INSULIN SLIDING SCALE (NOVOLOG) 1 VIAL SQ SCH (07:50)
[2020-02-25] MEDS: ACETAMINOPHEN 325 MG TABLET (FP) PO PRN (08:06)
[2020-02-25 09:00] LABS: BASO % 0.3 % (0-2.0); EOS % 1.8 % (0-4.5); HEMATOCRIT 23.5 % (35.4-49); HEMOGLOBIN 7.7 GM/dL (11.7-16.9); LYMPH % 5.1 % (8-40); MCH 27.1 pg (25.7-33.7); MCHC 32.7 g/dl (32.0-35.9); MEAN CELL VOLUME 82.7 fl (80-96); MEAN PLT VOLUME 7.8 fl (7.5-11.1); NEUT % 86.8 % (42.8-82.8); PLATELET COUNT 255 K/MM3 (134-434); RBC 2.84 M/mm3 (4.00-5.60); WHITE BLOOD COUNT 10.6 K/mm3 (4.0-10.0)
[2020-02-25 09:03] LABS: INR 1.23 (0.83-1.09); PROTHROMBIN TIME (PATIENT) 14.5 SEC (9.7-13.0)
[2020-02-25 09:28] LABS: ALBUMIN 1.4 g/dl (3.4-5.0); BILIRUBIN,TOTAL 0.3 mg/dL (0.2-1); BLOOD UREA NITROGEN 32.4 mg/dL (7-18); CALCIUM 8.5 mg/dL (8.5-10.1); CREATININE 1.4 mg/dL (0.55-1.3); MAGNESIUM 2.2 mg/dL (1.8-2.4); TOT PROT 6.2 g/dl (6.4-8.2)
[2020-02-25] MEDS: ASPIRIN 81 MG CHEWABLE TABLETS PO SCH (10:22)
[2020-02-25] MEDS: DOCUSATE SODIUM 100 MG CAPSULE (FP) PO SCH ×2 (10:22→21:17)
[2020-02-25] MEDS: MULTIVITAMINS (DAILY MVI) TABLET (FP) PO SCH (10:23)
[2020-02-25] MEDS: FAMOTIDINE 20 MG TABLET PO SCH ×2 (10:23→21:27)
[2020-02-25] MEDS: POLYETHYLENE GLYCOL 3350 119 GM BTL PO SCH (10:23)
[2020-02-25] MEDS: AMINO ACIDS/PROTEIN HYDROLYS 30 ML LIQUID.PKT PO SCH (10:23)
[2020-02-25] MEDS: HEPARIN NA (PORCINE) 5,000 UNITS/ML 1ML VIAL SQ SCH ×2 (10:23→21:25)
[2020-02-25] MEDS: ERTAPENEM SODIUM 1 GM in SODIUM CHLORIDE 50 ML IVPB SCH (10:27)
--- NOTE | 2020-02-25 10:55 | PN ---
Progress Note (short form) - Note Progress Note: 64 y/o male s/p bypass. Seen at bedside with nurse and discussed with vascular large amount or [id number] materal expressed at bedsdie by vascular PA this morning Discussed with Dr. Pineda He is taking for washout tomorrow and will verify bypass integrity Will then determine definite plan on patient for open amp vs bka Will follow
[2020-02-25] MEDS: CARVEDILOL 6.25 MG TABLET (FP) PO SCH ×2 (11:30→21:17)
[2020-02-25] MEDS: DIGOXIN 0.125 MG TABLET (FP) PO SCH (11:30)
--- NOTE | 2020-02-25 12:23 | PN ---
Progress Note (short form) - Note Progress Note: POD 7, s/p Right femoral artery to above knee popliteal artery bypass with PTFE. Angiogram of right lower extremity Pt seen and examined on AM rounds. Surgery team evaluated at bedside late last night and discovered a sinus tract had opened just inferior to the right groin incision, within the scar of his previous surgery and there was question of old hematoma d/c vs purulent collection and d/c. Wound cultures taken last night are pending. The patient has continued to have low grade fevers and has not been oob. Tolerating PO, liang in place. Vital Signs Temp 100.0 F H 02/25/20 06:00 Pulse 101 H 02/25/20 11:30 Resp 18 02/25/20 06:00 BP 121/76 02/25/20 06:00 Pulse Ox 94 L 02/25/20 06:00 Intake & Output 02/24/20 02/25/20 02/25/20 23:59 11:59 23:59 Intake Total 75 150 Output Total 900 Balance -825 150 Intake: Oral 75 150 Output: Urine 900 Liang 900 Other: Voiding Method Indwelling Catheter Bowel Movement Yes # Bowel Movements 1 Body Mass Index (BMI) 20.6 CBC, BMP 02/25/20 08:05 02/25/20 08:05 Gen: awake, lethargic but rousable Resp: unlabored on RA Abd: soft, nd, exquisitely TTP in RLQ where abdomen feels firm-likely organized hematoma, overlying skin with no erythema or edema. Ext: R groin incision c/d/i with agnes insitu with indurration extending from wound and inferiorally, sinus tract just inferior to incision with copious amounts of grossly purulent d/c and some clot expressed via milking the thigh and proximal incision. @ 100cc discharged and no evidence of fluctuance or organized collection palpated. Thigh soft and supple. distal incision site c/d/i with agnes insitu. no erythema or drainage or drainage noted. foot dressing removed, pt with mummified 2nd toe, 1st toe amp site with significant necrotic tissue, no significant purulent drainage expressed + foul odor. CT Abdomen non-contrast: report pending. Images reviewed by Dr Pineda with no obvious collection seen. Microbiology 02/24/20 00:30 Urine - Urine - Catheterized Urine Culture - Final NO GROWTH OBTAINED 02/21/20 15:23 Blood - Peripheral Venous Blood Culture - Preliminary NO GROWTH OBTAINED AFTER 72 HOURS, INCUBATION TO CONTINUE FOR 2 DAYS. 02/21/20 15:35 Blood - Peripheral Venous Blood Culture - Preliminary NO GROWTH OBTAINED AFTER 72 HOURS, INCUBATION TO CONTINUE FOR 2 DAYS. 02/05/20 07:50 Blood - Peripheral Venous Blood Culture - Final NO GROWTH AFTER 5 DAYS INCUBATION 02/05/20 08:08 Blood - Peripheral Venous Blood Culture - Final NO GROWTH AFTER 5 DAYS INCUBATION 02/03/20 13:05 Blood - Peripheral Venous Blood Culture - Final NO GROWTH AFTER 5 DAYS INCUBATION 02/03/20 13:05 Blood - Peripheral Venous Blood Culture - Final NO GROWTH AFTER 5 DAYS INCUBATION 02/03/20 16:20 Toe - Right Hallux Gram Stain - Final 02/03/20 16:20 Toe - Right Hallux Wound Culture - Final Klebsiella Pneumoniae - Esbl Proteus Mirabilis Enterococcus Faecalis Problem List - Problems (1) Gangrene of toe of right foot Assessment/Plan: A/P: 64 y/o M w/ PMHx DM, Schizophrenia, HTN, HLD, GERD, Dementia, EtOH s/p R great toe amputation now with 2nd digit gangrene, s/p POD 7, s/p Right femoral artery to above knee popliteal artery bypass with PTFE, Angiogram of right lower extremity with collection over right groin/graft draining. continues to be febrile tachy, normotensive incisions stable with sinus opening just distal to groin incision wound cultures pending -Plan for formal washout in the OR with Dr Pineda tomorrow 02/25 -planned for tma with podiatry pending washout -continue abx per ID -dressing changes per podiatry -continue asa -trend daily labs d/w attending Dr Pineda Code(s): I96 - GANGRENE, NOT ELSEWHERE CLASSIFIED
--- NOTE | 2020-02-25 12:26 | PN ---
Progress Note (short form) - Note Progress Note: s: no cp sob palps dizzy Current Medications Generic Name Dose Route Start Last Admin Trade Name Freq PRN Reason Stop Dose Admin Acetaminophen 650 mg 02/19/20 19:58 02/25/20 08:06 Tylenol - PO 650 mg Q4H PRN Administration FEVER Amino Acids 30 ml 02/20/20 10:00 02/25/20 10:23 Prosource No Carb Liquid Pkt PO Not Given DAILY HUGO Artificial Tears 1 drop 02/20/20 18:33 02/21/20 01:57 Artificial Tears OU 1 drop Q6H PRN Administration DRY EYES Aspirin 81 mg 02/20/20 10:00 02/25/20 10:22 Asa - PO Not Given DAILY [facility] Atorvastatin Calcium 20 mg 02/19/20 22:00 02/24/20 22:26 Lipitor - PO 20 mg HS HUGO Administration Carvedilol 6.25 mg 02/19/20 22:00 02/25/20 11:30 Coreg - PO 6.25 mg BID HUGO Administration Digoxin 0.125 mg 02/20/20 10:00 02/25/20 11:30 Lanoxin - PO 0.125 mg DAILY [facility] Administration Docusate Sodium 100 mg 02/19/20 22:00 02/25/20 10:22 Colace - PO Not Given BID HUGO Famotidine 20 mg 02/19/20 22:00 02/25/20 10:23 Pepcid - PO Not Given BID HUGO Gabapentin 300 mg 02/19/20 22:00 02/25/20 06:32 Neurontin - PO 300 mg TID HUGO Administration Heparin Sodium (Porcine) 5,000 unit 02/19/20 22:00 02/25/20 10:23 Heparin - SQ Not Given BID [facility] Ertapenem 1 gm/ Sodium 50 mls @ 100 mls/hr 02/23/20 10:00 02/25/20 10:27 Chloride IVPB 100 mls/hr DAILY [facility] Administration Insulin Aspart 1 vial 02/25/20 07:50 Novolog Vial Sliding Scale - SQ ACHS [facility] Protocol Insulin Detemir 45 units 02/19/20 22:00 02/24/20 22:01 Levemir Vial SQ Not Given HS [facility] Multivitamins/Minerals/Vitamin C 1 tab 02/20/20 10:00 02/25/20 10:23 Tab-A-Vit - PO Not Given DAILY HUGO Ondansetron HCl 4 mg 02/19/20 17:35 Zofran Injection IVPUSH Q6H PRN NAUSEA AND/OR VOMITING Polyethylene Glycol 17 gm 02/20/20 10:00 02/25/20 10:23 Miralax (For Daily Use) - PO Not Given DAILY HUGO Quetiapine Fumarate 50 mg 02/19/20 22:00 02/24/20 22:26 Seroquel - PO 50 mg HS HUGO Administration Vital Signs Period Temp Pulse Resp BP Sys/Leahy Pulse Ox Last 24 Hr 98.2 F-103 F 93-109 18-20 118-152/64-81 94-97 Constitutional: Yes: Well Nourished, No Distress Eyes: No: Sclera Icterus HENT: No: Nasal Congestion Respiratory: Yes: CTA Bilaterally. No: Accessory Muscle Use, Rales, Wheezes Gastrointestinal: Yes: Normal Bowel Sounds. No: Distention, Hepatomegaly, Palpable Mass, Tenderness Cardiovascular: Yes: Regular Rate and Rhythm JVD: No Heart Sounds: Yes: S1, S2. No: Gallop Murmur: No: Systolic Murmur, Diastolic Murmur Edema: No Integumentary: No: Jaundice Neurological: Yes: Alert. No: Seizure Psychiatric: No: Agitated CBC, BMP 02/25/20 08:05 02/25/20 08:05 Assessment/Plan echo 01/2020: normal LVEF, nl RV, nl valve function. CXR: ATX vs infiltrate R base, no effusions/congestion mibi 01/2020 mod sized area of inferolateral scar, no ischemia, EF 45% preop CV eval, PAD: -s/p R. Fem-Pop: tolerated surgery well, hemodynamically stable but now with fevers and plan for repeat OR for amputation for gangrene of foot -cannot evaluate for cardiac sx's due to his mental capacity -mult RFs for CAD/cardiomyopathy including DM, prior etoh abuse, age -recent echo unremarkable - mibi shows inferolateral scar, no ischemia - continue statin, plavix as medical management for likely underlying CAD -on digoxin for unclear indication, level ok here, continue - patient is at acceptable risk for vascular surgery/amputation, no further cardiac testing prior to procedure DM: -per hospitalist HTN: -cont present meds HPL: -cont statin
--- NOTE | 2020-02-25 12:54 | PN ---
Physical Exam: SUBJECTIVE: Patient seen and examined. tells me he feels weak, denies any pain. OBJECTIVE: lethargic, weaker today, still with high grade fevers ordered lactic acid for a washout out right groin wound tomorrow with Dr. Pineda for 1 unit of prbc for low h/h, blood cultures ordered and pending ----- Patient is a 64 year old male with a significant past medical history of DM, schizophrenia, HTN, HLD, GERD, dementia, EtOH use disorder who had his right knee great toe amputated apx 1 month ago, presents to the ED on 02/03/2020 with right 2nd digit gangrene. At [facility] pt underwent RLE angiogram which revealed right SFA occlusion. He is being followed by vascular surgery and is s/p fem-pop bypass last week. Right groin wound now with purulent drainage an cultured. Right groin wound for a washout tomorrow. ------ dnr/dni per molst form dated and signed on 12/23/2019 covid status: negative as per serology 02/02 and 02/10/2020 Period Temp Pulse Resp BP Sys/Leahy Pulse Ox Last 24 Hr 98.2 F-103 F 93-109 18-20 118-152/64-81 94-97 GENERAL: The patient is awake, alert, in no acute distress. forgetful HEAD: Normal with no signs of trauma. EYES: PERRL, extraocular movements intact, sclera anicteric, conjunctiva clear. No ptosis. ENT: Ears normal, nares patent, oropharynx clear without exudates NECK: Trachea midline, full range of motion, supple. LUNGS: Breath sounds equal HEART: Regular rate and rhythm ABDOMEN: Soft, nontender, nondistended, normoactive bowel sounds right groin wound, surgical agnes intact, redness noted around wound. EXTREMITIES: right foot dressing, for right 2nd and 3rd digit gangrene. wound wrapped in aguilar. NEUROLOGICAL: Normal speech, gait not observed. PSYCH: Normal mood, normal affect Laboratory Results - last 24 hr 02/24/20 02/24/20 02/24/20 17:00 18:00 18:00 WBC 10.7 H RBC 2.92 L Hgb 8.0 L Hct 24.6 L MCV 84.4 MCH 27.5 MCHC 32.6 RDW 15.8 Plt Count 253 MPV 8.2 Absolute Neuts (auto) 9.4 H Neutrophils % 88.2 H Lymphocytes % 6.6 L Monocytes % 4.1 Eosinophils % 0.9 Basophils % 0.2 Nucleated RBC % 0 PT with INR INR Sodium 136 Potassium 4.4 Chloride 104 Carbon Dioxide 25 Anion Gap 8 BUN 38.0 H Creatinine 1.7 H Est GFR (CKD-EPI)AfAm 49.00 Est GFR (CKD-EPI)NonAf 42.28 POC Glucometer 323 Random Glucose 367 H Calcium 8.5 Magnesium 2.2 Total Bilirubin 0.3 AST 43 H ALT 28 Alkaline Phosphatase 113 Total Protein 6.5 Albumin 1.5 L Blood Type Antibody Screen 02/24/20 02/25/20 02/25/20 21:47 06:04 08:05 WBC 10.6 H RBC 2.84 L Hgb 7.7 L Hct 23.5 L MCV 82.7 MCH 27.1 MCHC 32.7 RDW 16.0 H Plt Count 255 MPV 7.8 Absolute Neuts (auto) 9.2 H Neutrophils % 86.8 H Lymphocytes % 5.1 L D Monocytes % 6.0 Eosinophils % 1.8 D Basophils % 0.3 Nucleated RBC % 0 PT with INR INR Sodium Potassium Chloride Carbon Dioxide Anion Gap BUN Creatinine Est GFR (CKD-EPI)AfAm Est GFR (CKD-EPI)NonAf POC Glucometer 382 345 Random Glucose Calcium Magnesium Total Bilirubin AST ALT Alkaline Phosphatase Total Protein Albumin Blood Type Antibody Screen 02/25/20 02/25/20 02/25/20 08:05 08:05 08:05 WBC RBC Hgb Hct MCV MCH MCHC RDW Plt Count MPV Absolute Neuts (auto) Neutrophils % Lymphocytes % Monocytes % Eosinophils % Basophils % Nucleated RBC % PT with INR 14.50 H INR 1.23 H Sodium 136 Potassium 4.0 Chloride 104 Carbon Dioxide 24 Anion Gap 8 BUN 32.4 H Creatinine 1.4 H Est GFR (CKD-EPI)AfAm 61.97 Est GFR (CKD-EPI)NonAf 53.47 POC Glucometer Random Glucose 316 H Calcium 8.5 Magnesium 2.2 Total Bilirubin 0.3 AST 35 ALT 27 Alkaline Phosphatase 99 Total Protein 6.2 L Albumin 1.4 L Blood Type O POSITIVE Antibody Screen Negative 02/25/20 11:38 WBC RBC Hgb Hct MCV MCH MCHC RDW Plt Count MPV Absolute Neuts (auto) Neutrophils % Lymphocytes % Monocytes % Eosinophils % Basophils % Nucleated RBC % PT with INR INR Sodium Potassium Chloride Carbon Dioxide Anion Gap BUN Creatinine Est GFR (CKD-EPI)AfAm Est GFR (CKD-EPI)NonAf POC Glucometer 269 Random Glucose Calcium Magnesium Total Bilirubin AST ALT Alkaline Phosphatase Total Protein Albumin Blood Type Antibody Screen Active Medications Generic Name Dose Route Start Last Admin Trade Name Freq PRN Reason Stop Dose Admin Acetaminophen 650 mg 02/19/20 19:58 02/25/20 08:06 Tylenol - PO 650 mg Q4H PRN Administration FEVER Amino Acids 30 ml 02/20/20 10:00 02/25/20 10:23 Prosource No Carb Liquid Pkt PO Not Given DAILY [facility] Artificial Tears 1 drop 02/20/20 18:33 02/21/20 01:57 Artificial Tears OU 1 drop Q6H PRN Administration DRY EYES Aspirin 81 mg 02/20/20 10:00 02/25/20 10:22 Asa - PO Not Given DAILY [facility] Atorvastatin Calcium 20 mg 02/19/20 22:00 02/24/20 22:26 Lipitor - PO 20 mg HS [facility] Administration Carvedilol 6.25 mg 02/19/20 22:00 02/25/20 11:30 Coreg - PO 6.25 mg BID [facility] Administration Digoxin 0.125 mg 02/20/20 10:00 02/25/20 11:30 Lanoxin - PO 0.125 mg DAILY [facility] Administration Docusate Sodium 100 mg 02/19/20 22:00 02/25/20 10:22 Colace - PO Not Given BID [facility] Famotidine 20 mg 02/19/20 22:00 02/25/20 10:23 Pepcid - PO Not Given BID [facility] Gabapentin 300 mg 02/19/20 22:00 02/25/20 06:32 Neurontin - PO 300 mg TID [facility] Administration Heparin Sodium (Porcine) 5,000 unit 02/19/20 22:00 02/25/20 10:23 Heparin - SQ Not Given BID [facility] Ertapenem 1 gm/ Sodium 50 mls @ 100 mls/hr 02/23/20 10:00 02/25/20 10:27 Chloride IVPB 100 mls/hr DAILY [facility] Administration Insulin Aspart 1 vial 02/25/20 07:50 Novolog Vial Sliding Scale - SQ ACHS [facility] Protocol Insulin Detemir 45 units 02/19/20 22:00 02/24/20 22:01 Levemir Vial SQ Not Given HS [facility] Multivitamins/Minerals/Vitamin C 1 tab 02/20/20 10:00 02/25/20 10:23 Tab-A-Vit - PO Not Given DAILY [facility] Ondansetron HCl 4 mg 02/19/20 17:35 Zofran Injection IVPUSH Q6H PRN NAUSEA AND/OR VOMITING Polyethylene Glycol 17 gm 02/20/20 10:00 02/25/20 10:23 Miralax (For Daily Use) - PO Not Given DAILY [facility] Quetiapine Fumarate 50 mg 02/19/20 22:00 02/24/20 22:26 Seroquel - PO 50 mg HS [facility] Administration ASSESSMENT/PLAN: Problem List - Problems (1) Fever Assessment/Plan: patient continues with fevers blood cultures on 02/21/2020 negative, repeat blood cultures pending. He had an angiogram last week of right lower ext and now with collecti on/drainage over right groin graft wound. For a washout in the OR with Dr. Edwin brooks 02/25. Planned TMA with podiatry pending surgery UA negative, UC pending lactic acid pending chst xray with poor inspiration, no other acute pathology on ertapenem per ID Code(s): R50.9 - FEVER, UNSPECIFIED (2) Diabetic foot infection Assessment/Plan: Patient has peripheral artery disease with right foot cellulitis/osteomyelitis patient is s/P RLE angiogram on 02/04, s/p fem bypass surgery on 02/17 TMA to be scheduled by podiatry after washout of right groin. Code(s): E11.628 - TYPE 2 DIABETES MELLITUS WITH OTHER SKIN COMPLICATIONS; L08.9 - LOCAL INFECTION OF THE SKIN AND SUBCUTANEOUS TISSUE, UNSP (3) Anemia Assessment/Plan: Anemia of chronic disease Hmg/hct lower today no signs of bleeding stool for occult blood ordered for 1 unit of prbc today monitor CBC daily Code(s): D64.9 - ANEMIA, UNSPECIFIED (4) CKD (chronic kidney disease) Assessment/Plan: monitor kidney function trend intake/output and electrolytes Code(s): N18.9 - CHRONIC KIDNEY DISEASE, UNSPECIFIED (5) Congestive heart failure Assessment/Plan: Patient has normal ejection fraction, continue coreg, and digoxin, Stress test completed on 02/09/2020 no signs of volume overload Code(s): I50.9 - HEART FAILURE, UNSPECIFIED Qualifiers: Heart failure type: unspecified (6) Hypertension Assessment/Plan: labile BP currently on coreq 6.25mg bid, digoxin 0.125mg daily Code(s): I10 - ESSENTIAL (PRIMARY) HYPERTENSION (7) Uncontrolled type 2 diabetes mellitus Assessment/Plan: BGMs improved, goal is to maintain fasting bgms<180 tightened sliding scale insulin on levemir 45 units at hs Code(s): E11.65 - TYPE 2 DIABETES MELLITUS WITH HYPERGLYCEMIA (8) DVT prophylaxis Assessment/Plan: heparin bid Code(s): Z29.9 - ENCOUNTER FOR PROPHYLACTIC MEASURES, UNSPECIFIED Visit type - Emergency Visit Emergency Visit: Yes ED Registration Date: 02/03/20 Care time: The patient presented to the Emergency Department on the above date and was hospitalized for further evaluation of their emergent condition. - New Patient This patient is new to me today: No - Critical Care Critical Care patient: No - Discharge Referral Referred to [facility] Med P.C.: No
[2020-02-25] MEDS ORDERED: VANCOMYCIN 1 GRAM (PRE-DOCKED) 1,000 MG/250 ML BAG IVPB SCH (17:30)
--- NOTE | 2020-02-25 17:32 | PN ---
Progress Note (short form) - Note Progress Note: low grade fevers seen by surgical PA last evening- copious fluid expressed from the groin pelvic ct shows collection at the graft site Vital Signs Period Temp Pulse Resp BP Sys/Leahy Pulse Ox Last 24 Hr 98.2 F-103 F 86-109 18-20 121-152/67-81 94-97 cor-rrr lungs decreased bs at bases abd soft,nt no groin drainage today, agnes intact foot with dressing intact- open ulcer CBC, BMP 02/25/20 08:05 02/25/20 08:05 Microbiology 02/21/20 15:23 Blood - Peripheral Venous Blood Culture - Preliminary NO GROWTH OBTAINED AFTER 96 HOURS, INCUBATION TO CONTINUE FOR 1 DAYS. 02/21/20 15:35 Blood - Peripheral Venous Blood Culture - Preliminary NO GROWTH OBTAINED AFTER 96 HOURS, INCUBATION TO CONTINUE FOR 1 DAYS. 02/24/20 15:30 Groin - Right Gram Stain - Final 02/24/20 00:30 Urine - Urine - Catheterized Urine Culture - Final NO GROWTH OBTAINED 02/05/20 07:50 Blood - Peripheral Venous Blood Culture - Final NO GROWTH AFTER 5 DAYS INCUBATION 02/05/20 08:08 Blood - Peripheral Venous Blood Culture - Final NO GROWTH AFTER 5 DAYS INCUBATION 02/03/20 13:05 Blood - Peripheral Venous Blood Culture - Final NO GROWTH AFTER 5 DAYS INCUBATION 02/03/20 13:05 Blood - Peripheral Venous Blood Culture - Final NO GROWTH AFTER 5 DAYS INCUBATION 02/03/20 16:20 Toe - Right Hallux Gram Stain - Final 02/03/20 16:20 Toe - Right Hallux Wound Culture - Final Klebsiella Pneumoniae - Esbl Proteus Mirabilis Enterococcus Faecalis a/p infected fem/pop wound- for washout in am d/w dr forte continue vancomycin and ertapenem diabetic foot ulcer PVD nonhealing wound gangrenous second toe dementia Problem List - Problems (1) Fever Code(s): R50.9 - FEVER, UNSPECIFIED (2) Diabetic foot infection Code(s): E11.628 - TYPE 2 DIABETES MELLITUS WITH OTHER SKIN COMPLICATIONS; L08.9 - LOCAL INFECTION OF THE SKIN AND SUBCUTANEOUS TISSUE, UNSP (3) PVD (peripheral vascular disease) Code(s): I73.9 - PERIPHERAL VASCULAR DISEASE, UNSPECIFIED (4) CKD (chronic kidney disease) Code(s): N18.9 - CHRONIC KIDNEY DISEASE, UNSPECIFIED (5) Anemia Code(s): D64.9 - ANEMIA, UNSPECIFIED
[2020-02-25] MEDS: ATORVASTATIN CA 20 MG TABLET (FP) PO SCH (21:17)
[2020-02-25] MEDS: QUEtiapine FUMARATE 25 MG TABLET PO SCH (21:18)
[2020-02-25] MEDS: INSULIN (LEVEMIR) 100 UNITS/ML UNITS SQ SCH (21:25)
[2020-02-26] MEDS ORDERED: ACETAMINOPHEN 1000 MG/100 ML VIAL (NON FORMULARY) IVPB ONE (04:34)
[2020-02-26] MEDS: GABAPENTIN 300 MG CAPSULE PO SCH ×3 (06:26→22:23)
[2020-02-26] MEDS: INSULIN SLIDING SCALE (NOVOLOG) 1 VIAL SQ SCH ×4 (06:26→22:23)
[2020-02-26 08:54] LABS: BASO % 0.3 % (0-2.0); EOS % 3.9 % (0-4.5); HEMATOCRIT 24.3 % (35.4-49); HEMOGLOBIN 8.1 GM/dL (11.7-16.9); MCH 27.5 pg (25.7-33.7); MCHC 33.3 g/dl (32.0-35.9); MEAN CELL VOLUME 82.4 fl (80-96); MEAN PLT VOLUME 7.6 fl (7.5-11.1); MONO % 8.3 % (3.8-10.2); NEUT % 78.5 % (42.8-82.8); PLATELET COUNT 272 K/MM3 (134-434); RBC 2.96 M/mm3 (4.00-5.60); RDW 15.4 % (11.9-15.9); WHITE BLOOD COUNT 9.5 K/mm3 (4.0-10.0)
[2020-02-26 09:28] LABS: ALBUMIN 1.4 g/dl (3.4-5.0); BILIRUBIN,TOTAL 0.5 mg/dL (0.2-1); BLOOD UREA NITROGEN 35.3 mg/dL (7-18); CALCIUM 8.4 mg/dL (8.5-10.1); CREATININE 1.4 mg/dL (0.55-1.3); MAGNESIUM 2.3 mg/dL (1.8-2.4); POTASSIUM 3.9 mmol/L (3.5-5.1); TOT PROT 6.1 g/dl (6.4-8.2)
[2020-02-26] MEDS: HEPARIN NA (PORCINE) 5,000 UNITS/ML 1ML VIAL SQ SCH ×2 (09:40→22:21)
[2020-02-26] MEDS: POLYETHYLENE GLYCOL 3350 119 GM BTL PO SCH (09:41)
[2020-02-26] MEDS: ERTAPENEM SODIUM 1 GM in SODIUM CHLORIDE 50 ML IVPB SCH (09:51)
[2020-02-26] MEDS: DIGOXIN 0.125 MG TABLET (FP) PO SCH (09:52)
[2020-02-26] MEDS: FAMOTIDINE 20 MG TABLET PO SCH ×2 (09:53→22:24)
[2020-02-26] MEDS: MULTIVITAMINS (DAILY MVI) TABLET (FP) PO SCH (09:54)
[2020-02-26] MEDS: CARVEDILOL 6.25 MG TABLET (FP) PO SCH ×2 (09:54→22:21)
[2020-02-26] MEDS: AMINO ACIDS/PROTEIN HYDROLYS 30 ML LIQUID.PKT PO SCH (09:55)
[2020-02-26] MEDS: ASPIRIN 81 MG CHEWABLE TABLETS PO SCH ×2 (10:01→10:03)
[2020-02-26] MEDS: DOCUSATE SODIUM 100 MG CAPSULE (FP) PO SCH ×2 (10:01→22:21)
[2020-02-26 10:32] LABS: INR 1.2 (0.83-1.09); PROTHROMBIN TIME (PATIENT) 14.2 SEC (9.7-13.0)
[2020-02-26] MEDS ORDERED: DEXTROSE 50%-WATER - 25 GM/50 ML VIAL IVPUSH ONE (11:04)
[2020-02-26] MEDS ORDERED: DEXTROSE 50%-WATER 25 GM/50 ML DISP.SYRIN ONE (11:12)
--- NOTE | 2020-02-26 11:17 | PN ---
Progress Note (short form) - Note Progress Note: For washout today with Vascular will watch over the weekend to see stability of bypass As discussed with dr. Pineda; primary BKA may be better option since wont be able to close the TMA site will discuss with vascular.
--- NOTE | 2020-02-26 11:30 | PN ---
Physical Exam: SUBJECTIVE: Patient seen and examined at the bedside. still weak appearing. denies malaise. OBJECTIVE: lethargic, with fevers. WBC improved. lactic acid wnl for a washout out right groin wound today with Dr. Pineda s/p 1 unit of prbc yesterday with appropriate rise of hmg/hct, blood cultures with no growth to date. ----- Patient is a 64 year old male with a significant past medical history of DM, schizophrenia, HTN, HLD, GERD, dementia, EtOH use disorder who had his right knee great toe amputated apx 1 month ago, presents to the ED on 02/03/2020 with right 2nd digit gangrene. At [facility] pt underwent RLE angiogram which revealed right SFA occlusion. He is being followed by vascular surgery and is s/p fem-pop bypass last week. Right groin wound now with purulent drainage. Right groin wound for a washout today. Patient to be scheduled for right foot TMA with podiatry. ------ dnr/dni per molst form dated and signed on 12/23/2019 covid status: negative as per serology 02/02 and 02/10/2020 Vital Signs Period Temp Pulse Resp BP Sys/Leahy Pulse Ox Last 24 Hr 98.3 F-101.2 F 72-93 16-18 120-146/58-76 94-99 GENERAL: The patient is awake, alert, in no acute distress. forgetful HEAD: Normal with no signs of trauma. EYES: PERRL, extraocular movements intact, sclera anicteric, conjunctiva clear. No ptosis. ENT: Ears normal, nares patent, oropharynx clear without exudates NECK: Trachea midline, full range of motion, supple. LUNGS: Breath sounds equal HEART: Regular rate and rhythm ABDOMEN: Soft, nontender, nondistended, normoactive bowel sounds right groin wound, surgical agnes intact, redness noted around wound. EXTREMITIES: right foot dressing, for right 2nd and 3rd digit gangrene. wound wrapped in aguilar. NEUROLOGICAL: Normal speech, gait not observed. PSYCH: Normal mood, normal affect Laboratory Results - last 24 hr 02/25/20 02/25/20 02/25/20 08:05 11:38 14:45 WBC RBC Hgb Hct MCV MCH MCHC RDW Plt Count MPV Absolute Neuts (auto) Neutrophils % Lymphocytes % Monocytes % Eosinophils % Basophils % Nucleated RBC % PT with INR INR Sodium Potassium Chloride Carbon Dioxide Anion Gap BUN Creatinine Est GFR (CKD-EPI)AfAm Est GFR (CKD-EPI)NonAf POC Glucometer 269 Random Glucose Lactic Acid Calcium Magnesium Total Bilirubin AST ALT Alkaline Phosphatase Total Protein Albumin Stool Occult Blood Negative Blood Type O POSITIVE Antibody Screen Negative Crossmatch See Detail 02/25/20 02/25/20 02/25/20 15:30 16:51 21:03 WBC RBC Hgb Hct MCV MCH MCHC RDW Plt Count MPV Absolute Neuts (auto) Neutrophils % Lymphocytes % Monocytes % Eosinophils % Basophils % Nucleated RBC % PT with INR INR Sodium Potassium Chloride Carbon Dioxide Anion Gap BUN Creatinine Est GFR (CKD-EPI)AfAm Est GFR (CKD-EPI)NonAf POC Glucometer 349 329 Random Glucose Lactic Acid 1.7 Calcium Magnesium Total Bilirubin AST ALT Alkaline Phosphatase Total Protein Albumin Stool Occult Blood Blood Type Antibody Screen Crossmatch 02/26/20 02/26/20 02/26/20 03:32 06:22 07:44 WBC 9.5 RBC 2.96 L Hgb 8.1 L Hct 24.3 L MCV 82.4 MCH 27.5 MCHC 33.3 RDW 15.4 Plt Count 272 MPV 7.6 Absolute Neuts (auto) 7.4 Neutrophils % 78.5 Lymphocytes % 9.0 D Monocytes % 8.3 Eosinophils % 3.9 D Basophils % 0.3 Nucleated RBC % 0 PT with INR INR Sodium Potassium Chloride Carbon Dioxide Anion Gap BUN Creatinine Est GFR (CKD-EPI)AfAm Est GFR (CKD-EPI)NonAf POC Glucometer 167 115 Random Glucose Lactic Acid Calcium Magnesium Total Bilirubin AST ALT Alkaline Phosphatase Total Protein Albumin Stool Occult Blood Blood Type Antibody Screen Crossmatch 02/26/20 02/26/20 02/26/20 07:44 08:57 09:10 WBC RBC Hgb Hct MCV MCH MCHC RDW Plt Count MPV Absolute Neuts (auto) Neutrophils % Lymphocytes % Monocytes % Eosinophils % Basophils % Nucleated RBC % PT with INR 14.20 H INR 1.20 H Sodium 140 Potassium 3.9 Chloride 108 H Carbon Dioxide 26 Anion Gap 6 L BUN 35.3 H Creatinine 1.4 H Est GFR (CKD-EPI)AfAm 61.97 Est GFR (CKD-EPI)NonAf 53.47 POC Glucometer 80 Random Glucose 97 Lactic Acid Calcium 8.4 L Magnesium 2.3 Total Bilirubin 0.5 AST 79 H ALT 56 Alkaline Phosphatase 91 Total Protein 6.1 L Albumin 1.4 L Stool Occult Blood Blood Type Antibody Screen Crossmatch 02/26/20 11:00 WBC RBC Hgb Hct MCV MCH MCHC RDW Plt Count MPV Absolute Neuts (auto) Neutrophils % Lymphocytes % Monocytes % Eosinophils % Basophils % Nucleated RBC % PT with INR INR Sodium Potassium Chloride Carbon Dioxide Anion Gap BUN Creatinine Est GFR (CKD-EPI)AfAm Est GFR (CKD-EPI)NonAf POC Glucometer 58 Random Glucose Lactic Acid Calcium Magnesium Total Bilirubin AST ALT Alkaline Phosphatase Total Protein Albumin Stool Occult Blood Blood Type Antibody Screen Crossmatch Active Medications Generic Name Dose Route Start Last Admin Trade Name Freq PRN Reason Stop Dose Admin Acetaminophen 650 mg 02/19/20 19:58 02/25/20 08:06 Tylenol - PO 650 mg Q4H PRN Administration FEVER Amino Acids 30 ml 02/20/20 10:00 02/26/20 09:55 Prosource No Carb Liquid Pkt PO Not Given DAILY [facility] Artificial Tears 1 drop 02/20/20 18:33 02/21/20 01:57 Artificial Tears OU 1 drop Q6H PRN Administration DRY EYES Aspirin 81 mg 02/20/20 10:00 02/26/20 10:03 Asa - PO Not Given DAILY [facility] Atorvastatin Calcium 20 mg 02/19/20 22:00 02/25/20 21:17 Lipitor - PO 20 mg HS [facility] Administration Carvedilol 6.25 mg 02/19/20 22:00 02/26/20 09:54 Coreg - PO 6.25 mg BID [facility] Administration Digoxin 0.125 mg 02/20/20 10:00 02/26/20 09:52 Lanoxin - PO 0.125 mg DAILY [facility] Administration Docusate Sodium 100 mg 02/19/20 22:00 02/26/20 10:01 Colace - PO 100 mg BID [facility] Administration Famotidine 20 mg 02/19/20 22:00 02/26/20 09:53 Pepcid - PO 20 mg BID [facility] Administration Gabapentin 300 mg 02/19/20 22:00 02/26/20 06:26 Neurontin - PO 300 mg TID [facility] Administration Heparin Sodium (Porcine) 5,000 unit 02/19/20 22:00 02/26/20 09:40 Heparin - SQ Not Given BID [facility] Ertapenem 1 gm/ Sodium 50 mls @ 100 mls/hr 02/23/20 10:00 02/26/20 09:51 Chloride IVPB 100 mls/hr DAILY [facility] Administration Vancomycin HCl 1,000 mg in 250 mls @ 166.667 mls/hr 02/25/20 17:30 02/25/20 21:27 Vancomycin (Pre-Docked) IVPB 166.667 mls/hr Q24H [facility] Administration Protocol Insulin Aspart 1 vial 02/25/20 16:30 02/26/20 11:08 Novolog Vial Sliding Scale - SQ Not Given ACHS [facility] Protocol Insulin Detemir 45 units 02/19/20 22:00 02/25/20 21:25 Levemir Vial SQ 45 units HS [facility] Administration Multivitamins/Minerals/Vitamin C 1 tab 02/20/20 10:00 02/26/20 09:54 Tab-A-Vit - PO 1 tab DAILY [facility] Administration Ondansetron HCl 4 mg 02/19/20 17:35 Zofran Injection IVPUSH Q6H PRN NAUSEA AND/OR VOMITING Polyethylene Glycol 17 gm 02/20/20 10:00 02/26/20 09:41 Miralax (For Daily Use) - PO Not Given DAILY [facility] Quetiapine Fumarate 50 mg 02/19/20 22:00 02/25/20 21:18 Seroquel - PO 50 mg HS [facility] Administration ASSESSMENT/PLAN: Problem List - Problems (1) Fever Assessment/Plan: patient continues with fevers blood cultures on 02/21/2020 negative, repeat blood cultures with no growth to date. He had an angiogram last week of right lower ext and now with collection/drainage over right groin graft wound. For a washout in the OR with Dr. Pineda today 02/25. Planned TMA with podiatry pending surgery UA negative, UC negative lactic acid negative chst xray with poor inspiration, no other acute pathology on ertapenem per ID Code(s): R50.9 - FEVER, UNSPECIFIED (2) Diabetic foot infection Assessment/Plan: Patient has peripheral artery disease with right foot cellulitis/osteomyelitis patient is s/P RLE angiogram on 02/04, s/p fem bypass surgery on 02/17 TMA to be scheduled by podiatry after washout of right groin. Code(s): E11.628 - TYPE 2 DIABETES MELLITUS WITH OTHER SKIN COMPLICATIONS; L08.9 - LOCAL INFECTION OF THE SKIN AND SUBCUTANEOUS TISSUE, UNSP (3) Anemia Assessment/Plan: Anemia of chronic disease no signs of bleeding stool for occult blood ordered s/p 1 unit of prbc on 02/24 monitor CBC daily Code(s): D64.9 - ANEMIA, UNSPECIFIED (4) CKD (chronic kidney disease) Assessment/Plan: monitor kidney function trend intake/output and electrolytes Code(s): N18.9 - CHRONIC KIDNEY DISEASE, UNSPECIFIED (5) Congestive heart failure Assessment/Plan: Patient has normal ejection fraction, continue coreg, and digoxin, Stress test completed on 02/09/2020 no signs of volume overload Code(s): I50.9 - HEART FAILURE, UNSPECIFIED Qualifiers: Heart failure type: unspecified (6) Hypertension Assessment/Plan: labile BP currently on coreq 6.25mg bid, digoxin 0.125mg daily Code(s): I10 - ESSENTIAL (PRIMARY) HYPERTENSION (7) Uncontrolled type 2 diabetes mellitus Assessment/Plan: BGMs improved, goal is to maintain fasting bgms<180 tightened sliding scale insulin on levemir 45 units at hs Code(s): E11.65 - TYPE 2 DIABETES MELLITUS WITH HYPERGLYCEMIA (8) DVT prophylaxis Assessment/Plan: heparin bid Code(s): Z29.9 - ENCOUNTER FOR PROPHYLACTIC MEASURES, UNSPECIFIED Visit type - Emergency Visit Emergency Visit: Yes ED Registration Date: 02/03/20 Care time: The patient presented to the Emergency Department on the above date and was hospitalized for further evaluation of their emergent condition. - New Patient This patient is new to me today: No - Critical Care Critical Care patient: No - Discharge Referral Referred to [facility] Med P.C.: No
[2020-02-26] MEDS ORDERED: LACTATED RINGERS SOLUTION 1,000 ML/1,000 ML INFUS.BAG IV SCH (12:15)
[2020-02-26] MEDS ORDERED: EPHEDRINE SULFATE/0.9% NACL/PF 50 MG/10 ML SYRINGE NR ONE (14:25)
[2020-02-26] MEDS ORDERED: PROPOFOL 20 ML ONE ×2 (14:25)
[2020-02-26] MEDS ORDERED: MIDAZOLAM HCL 2 MG/2 ML SINGLE DOSE VIAL ONE (14:25)
[2020-02-26] MEDS ORDERED: SUCCINYLCHOLINE CHLORIDE 200 MG/10 ML SYRINGE ONE (14:25)
[2020-02-26] MEDS ORDERED: VANCOMYCIN 1,000 MG VIAL (RESTRICTED TO ID ONLY) ONE (14:47)
[2020-02-26] MEDS ORDERED: VANCOMYCIN 1,000 MG VIAL (RESTRICTED TO ID ONLY) IVPB ONE (14:55)
[2020-02-26] MEDS ORDERED: PROMETHAZINE HCL 25 MG/1 ML VIAL IVPUSH PRN ×2 (16:02→16:22)
[2020-02-26] MEDS ORDERED: ONDANSETRON 4 MG/2 ML VIAL IVPUSH PRN ×2 (16:02→16:22)
[2020-02-26] MEDS ORDERED: oxyCODONE HCL 5 MG TABLET PO PRN ×2 (16:02→16:22)
--- NOTE | 2020-02-26 16:05 | OP ---
Operative Note - Note: Operative Date: 02/26/20 Pre-Operative Diagnosis: right groin abscess Operation: Incision and drainage of abscess right groin Findings: Pus found in groin Cultures taken Pt needs to be treated for graft infection Post-Operative Diagnosis: Same as Pre-op Surgeon: Thien Pineda Anesthesia: MAC Estimated Blood Loss (mls): 20 Operative Report Dictated: Yes
[2020-02-26] MEDS ORDERED: ARTIFICIAL TEARS (POLYVINYL ALCOHOL) OPTH DROPS OU PRN (16:22)
[2020-02-26] MEDS: LACTATED RINGERS SOLUTION 1,000 ML/1,000 ML INFUS.BAG IV SCH ×2 (17:37→20:12)
[2020-02-26] MEDS: INSULIN (LEVEMIR) 100 UNITS/ML UNITS SQ SCH (22:21)
[2020-02-26] MEDS: ATORVASTATIN CA 20 MG TABLET (FP) PO SCH (22:23)
[2020-02-26] MEDS: QUEtiapine FUMARATE 25 MG TABLET PO SCH (22:24)
[2020-02-27] MEDS: GABAPENTIN 300 MG CAPSULE PO SCH ×3 (06:41→21:14)
[2020-02-27] MEDS: INSULIN SLIDING SCALE (NOVOLOG) 1 VIAL SQ SCH ×4 (06:42→21:21)
--- NOTE | 2020-02-27 11:18 | PN ---
Progress Note (short form) - Note Progress Note: s: no cp sob palps dizzy Current Medications Generic Name Dose Route Start Last Admin Trade Name Freq PRN Reason Stop Dose Admin Acetaminophen 650 mg 02/26/20 16:22 Tylenol - PO Q4H PRN FEVER Amino Acids 30 ml 02/27/20 10:00 Prosource No Carb Liquid Pkt PO DAILY [facility] Artificial Tears 1 drop 02/26/20 16:22 Artificial Tears OU Q6H PRN DRY EYES Aspirin 81 mg 02/27/20 10:00 Asa - PO DAILY [facility] Atorvastatin Calcium 20 mg 02/26/20 22:00 02/26/20 22:23 Lipitor - PO 20 mg HS [facility] Administration Carvedilol 6.25 mg 02/26/20 22:00 02/26/20 22:21 Coreg - PO 6.25 mg BID [facility] Administration Digoxin 0.125 mg 02/27/20 10:00 Lanoxin - PO DAILY [facility] Docusate Sodium 100 mg 02/26/20 22:00 02/26/20 22:21 Colace - PO 100 mg BID [facility] Administration Famotidine 20 mg 02/26/20 22:00 02/26/20 22:24 Pepcid - PO 20 mg BID [facility] Administration Gabapentin 300 mg 02/26/20 22:00 02/27/20 06:41 Neurontin - PO 300 mg TID [facility] Administration Heparin Sodium (Porcine) 5,000 unit 02/26/20 22:00 02/26/20 22:21 Heparin - SQ 5,000 unit BID [facility] Administration Ertapenem 1 gm/ Sodium 50 mls @ 100 mls/hr 02/27/20 10:00 Chloride IVPB DAILY [facility] Vancomycin HCl 1,000 mg in 250 mls @ 166.667 mls/hr 02/27/20 15:00 Vancomycin (Pre-Docked) IVPB Q24H [facility] Protocol Lactated Ringer's 1,000 ml in 1,000 mls @ 75 mls/hr 02/26/20 16:22 02/26/20 20:12 Lactated Ringers Solution IV 75 mls/hr ASDIR [facility] Administration Insulin Aspart 1 vial 02/26/20 16:30 02/27/20 06:42 Novolog Vial Sliding Scale - SQ Not Given ACHS [facility] Protocol Insulin Detemir 45 units 02/26/20 22:00 02/26/20 22:21 Levemir Vial SQ 45 unit HS [facility] Administration Multivitamins/Minerals/Vitamin C 1 tab 02/27/20 10:00 Tab-A-Vit - PO DAILY [facility] Oxycodone HCl 10 mg 02/26/20 16:22 Roxicodone - PO 02/27/20 16:01 Q4H PRN PAIN LEVEL 6-10 Polyethylene Glycol 17 gm 02/27/20 10:00 Miralax (For Daily Use) - PO DAILY [facility] Quetiapine Fumarate 50 mg 02/26/20 22:00 02/26/20 22:24 Seroquel - PO 50 mg HS [facility] Administration Vital Signs Period Temp Pulse Resp BP Sys/Leahy Pulse Ox Last 24 Hr 98.0 F-100.0 F 77-372 12-18 132-168/69-82 95-100 Constitutional: Yes: Well Nourished, No Distress Eyes: No: Sclera Icterus HENT: No: Nasal Congestion Respiratory: Yes: CTA Bilaterally. No: Accessory Muscle Use, Rales, Wheezes Gastrointestinal: Yes: Normal Bowel Sounds. No: Distention, Hepatomegaly, Palpable Mass, Tenderness Cardiovascular: Yes: Regular Rate and Rhythm JVD: No Heart Sounds: Yes: S1, S2. No: Gallop Murmur: No: Systolic Murmur, Diastolic Murmur Edema: No Integumentary: No: Jaundice Neurological: Yes: Alert. No: Seizure Psychiatric: No: Agitated CBC, BMP 02/26/20 07:44 02/26/20 07:44 Assessment/Plan echo 01/2020: normal LVEF, nl RV, nl valve function. CXR: ATX vs infiltrate R base, no effusions/congestion mibi 01/2020 mod sized area of inferolateral scar, no ischemia, EF 45% preop CV eval, PAD: -s/p R. Fem-Pop: tolerated surgery well, hemodynamically stable but now with fevers and plan for repeat OR for amputation for gangrene of foot -cannot evaluate for cardiac sx's due to his mental capacity -mult RFs for CAD/cardiomyopathy including DM, prior etoh abuse, age -recent echo unremarkable - mibi shows inferolateral scar, no ischemia - continue statin, plavix as medical management for likely underlying CAD -on digoxin for unclear indication, level ok here, continue - patient is at acceptable risk for vascular surgery/amputation, no further cardiac testing prior to procedure DM: -per hospitalist HTN: -cont present meds HPL: -cont statin
[2020-02-27] MEDS ORDERED: PT OWN MED DRAWER 7, Y5N ONE ×2 (11:25→16:16)
[2020-02-27] MEDS: DIGOXIN 0.125 MG TABLET (FP) PO SCH (11:29)
[2020-02-27] MEDS: DOCUSATE SODIUM 100 MG CAPSULE (FP) PO SCH ×2 (11:29→21:12)
[2020-02-27] MEDS: FAMOTIDINE 20 MG TABLET PO SCH ×2 (11:29→21:12)
[2020-02-27] MEDS: CARVEDILOL 6.25 MG TABLET (FP) PO SCH ×2 (11:30→21:12)
[2020-02-27] MEDS: AMINO ACIDS/PROTEIN HYDROLYS 30 ML LIQUID.PKT PO SCH (11:30)
[2020-02-27] MEDS: ASPIRIN 81 MG CHEWABLE TABLETS PO SCH (11:30)
[2020-02-27] MEDS: HEPARIN NA (PORCINE) 5,000 UNITS/ML 1ML VIAL SQ SCH ×2 (11:30→21:12)
[2020-02-27] MEDS: MULTIVITAMINS (DAILY MVI) TABLET (FP) PO SCH (11:30)
[2020-02-27] MEDS: POLYETHYLENE GLYCOL 3350 119 GM BTL PO SCH (11:31)
--- NOTE | 2020-02-27 11:56 | PN ---
Physical Exam: SUBJECTIVE: Patient seen and examined, lethargic, s/p washout /, low grades temps overnight OBJECTIVE: Vital Signs Period Temp Pulse Resp BP Sys/Leahy Pulse Ox Last 24 Hr 98.0 F-100.0 F 77-372 12-18 132-168/69-82 95-100 GENERAL: The patient is lethargic, arousable, in no acute distress. HEAD: Normal with no signs of trauma. EYES: PERRL, extraocular movements intact, sclera anicteric, conjunctiva clear. No ptosis. ENT: Ears normal, nares patent, oropharynx clear without exudates, moist mucous membranes. NECK: Trachea midline, full range of motion, supple. LUNGS: Breath sounds equal, clear to auscultation bilaterally, no wheezes, no crackles, no accessory muscle use. HEART: Regular rate and rhythm, S1, S2 without murmur, rub or gallop. ABDOMEN: Soft, nontender, nondistended, normoactive bowel sounds, no guarding, no rebound, no hepatosplenomegaly, no masses. EXTREMITIES: 2+ pulses, warm, well-perfused, no edema. NEUROLOGICAL: Cranial nerves II through XII grossly intact. Normal speech, gait not observed. PSYCH: Normal mood, normal affect. SKIN: 2nd necrotic, toe, Warm, dry, normal turgor, no rashes or lesions noted Laboratory Results - last 24 hr 02/26/20 02/26/20 02/26/20 12:01 16:45 21:07 POC Glucometer 163 102 181 02/27/20 06:03 POC Glucometer 94 Active Medications Generic Name Dose Route Start Last Admin Trade Name Freq PRN Reason Stop Dose Admin Acetaminophen 650 mg 02/26/20 16:22 Tylenol - PO Q4H PRN FEVER Amino Acids 30 ml 02/27/20 10:00 02/27/20 11:30 Prosource No Carb Liquid Pkt PO 30 ml DAILY [facility] Administration Artificial Tears 1 drop 02/26/20 16:22 Artificial Tears OU Q6H PRN DRY EYES Aspirin 81 mg 02/27/20 10:00 02/27/20 11:30 Asa - PO 81 mg DAILY [facility] Administration Atorvastatin Calcium 20 mg 02/26/20 22:00 02/26/20 22:23 Lipitor - PO 20 mg HS [facility] Administration Carvedilol 6.25 mg 02/26/20 22:00 02/27/20 11:30 Coreg - PO 6.25 mg BID [facility] Administration Digoxin 0.125 mg 02/27/20 10:00 02/27/20 11:29 Lanoxin - PO 0.125 mg DAILY [facility] Administration Docusate Sodium 100 mg 02/26/20 22:00 02/27/20 11:29 Colace - PO 100 mg BID [facility] Administration Famotidine 20 mg 02/26/20 22:00 02/27/20 11:29 Pepcid - PO 20 mg BID [facility] Administration Gabapentin 300 mg 02/26/20 22:00 02/27/20 06:41 Neurontin - PO 300 mg TID [facility] Administration Heparin Sodium (Porcine) 5,000 unit 02/26/20 22:00 02/27/20 11:30 Heparin - SQ 5,000 unit BID [facility] Administration Ertapenem 1 gm/ Sodium 50 mls @ 100 mls/hr 02/27/20 10:00 Chloride IVPB DAILY [facility] Vancomycin HCl 1,000 mg in 250 mls @ 166.667 mls/hr 02/27/20 15:00 Vancomycin (Pre-Docked) IVPB Q24H [facility] Protocol Lactated Ringer's 1,000 ml in 1,000 mls @ 75 mls/hr 02/26/20 16:22 02/26/20 20:12 Lactated Ringers Solution IV 75 mls/hr ASDIR [facility] Administration Insulin Aspart 1 vial 02/26/20 16:30 02/27/20 06:42 Novolog Vial Sliding Scale - SQ Not Given ACHS [facility] Protocol Insulin Detemir 45 units 02/26/20 22:00 02/26/20 22:21 Levemir Vial SQ 45 unit HS [facility] Administration Multivitamins/Minerals/Vitamin C 1 tab 02/27/20 10:00 02/27/20 11:30 Tab-A-Vit - PO 1 tab DAILY [facility] Administration Oxycodone HCl 10 mg 02/26/20 16:22 Roxicodone - PO 02/27/20 16:01 Q4H PRN PAIN LEVEL 6-10 Polyethylene Glycol 17 gm 02/27/20 10:00 02/27/20 11:31 Miralax (For Daily Use) - PO 17 gm DAILY [facility] Administration Quetiapine Fumarate 50 mg 02/26/20 22:00 02/26/20 22:24 Seroquel - PO 50 mg HS [facility]GO Administration ASSESSMENT/PLAN: Patient is a 64 year old male with a significant past medical history of DM, schizophrenia, HTN, HLD, GERD, dementia, EtOH use disorder who had his right knee great toe amputated apx 1 month ago, presents to the ED on 02/03/2020 with right 2nd digit gangrene. At [facility] pt underwent RLE angiogram which revealed right SFA occlusion. He is being followed by vascular surgery and is s/p fem-pop bypass last week. Right groin wound now with purulent drainage. Right groin wound for a washout 02/25. Patient to be scheduled for right foot TMA with podiatry. Problem List - Problems (1) Fever Assessment/Plan: patient continues with fevers blood cultures on 02/21/2020 negative, repeat blood cultures with no growth to date. He had an angiogram last week of right lower ext and now with collection/drainage over right groin graft wound. s/p washout with Dr. Pineda 02/25. Planned TMA with podiatry pending surgery -ID following -c/w IV abt Invanz, vanco UA negative, UC negative lactic acid negative chst xray with poor inspiration, no other acute pathology on ertapenem per ID Code(s): R50.9 - FEVER, UNSPECIFIED (2) Diabetic foot infection Assessment/Plan: Patient has peripheral artery disease with right foot cellulitis/osteomyelitis patient is s/P RLE angiogram on 02/04, s/p fem bypass surgery on 02/17 TMA to be scheduled by podiatry after washout of right groin. Code(s): E11.628 - TYPE 2 DIABETES MELLITUS WITH OTHER SKIN COMPLICATIONS; L08.9 - LOCAL INFECTION OF THE SKIN AND SUBCUTANEOUS TISSUE, UNSP (3) Anemia Assessment/Plan: Anemia of chronic disease no signs of bleeding occult blood negative s/p 1 unit of prbc on 02/24 monitor CBC daily Code(s): D64.9 - ANEMIA, UNSPECIFIED (4) CKD (chronic kidney disease) Assessment/Plan: monitor kidney function trend intake/output and electrolytes Code(s): N18.9 - CHRONIC KIDNEY DISEASE, UNSPECIFIED (5) Congestive heart failure Assessment/Plan: Patient has normal ejection fraction, continue coreg, and digoxin, Stress test completed on 02/09/2020 no signs of volume overload Code(s): I50.9 - HEART FAILURE, UNSPECIFIED Qualifiers: Heart failure type: unspecified (6) Hypertension Assessment/Plan: labile BP currently on coreq 6.25mg bid, digoxin 0.125mg daily Code(s): I10 - ESSENTIAL (PRIMARY) HYPERTENSION (7) Uncontrolled type 2 diabetes mellitus Assessment/Plan: BGMs improved, goal is to maintain fasting bgms<180 tightened sliding scale insulin on levemir 45 units at hs Code(s): E11.65 - TYPE 2 DIABETES MELLITUS WITH HYPERGLYCEMIA (8) DVT prophylaxis Assessment/Plan: heparin bid Code(s): Z29.9 - ENCOUNTER FOR PROPHYLACTIC MEASURES, UNSPECIFIED Visit type - Emergency Visit Emergency Visit: Yes ED Registration Date: 02/03/20 Care time: The patient presented to the Emergency Department on the above date and was hospitalized for further evaluation of their emergent condition. - New Patient This patient is new to me today: Yes Date on this admission: 02/27/20 - Critical Care Critical Care patient: No
[2020-02-27 12:38] LABS: BASO % 0.3 % (0-2.0); EOS % 3.5 % (0-4.5); HEMATOCRIT 24.4 % (35.4-49); HEMOGLOBIN 8.2 GM/dL (11.7-16.9); LYMPH % 9.1 % (8-40); MCHC 33.4 g/dl (32.0-35.9); MEAN PLT VOLUME 7.9 fl (7.5-11.1); MONO % 9.8 % (3.8-10.2); NEUT % 77.3 % (42.8-82.8); PLATELET COUNT 281 K/MM3 (134-434); RBC 2.91 M/mm3 (4.00-5.60); RDW 15.8 % (11.9-15.9)
--- NOTE | 2020-02-27 12:45 | PN ---
Progress Note (short form) - Note Progress Note: s/p washout yesterday operative cultures sent Vital Signs Period Temp Pulse Resp BP Sys/Leahy Pulse Ox Last 24 Hr 98.0 F-100.0 F 77-372 12-18 132-168/69-82 95-100 cor-rrr lungs clear abd soft,nt dressing intact right groin right foot with dressing intact CBC, BMP 02/27/20 11:20 Microbiology 02/24/20 15:30 Groin - Right Gram Stain - Final 02/24/20 15:30 Groin - Right Wound Culture - Final Klebsiella Pneumoniae - Esbl Vr Ec Faecium 02/24/20 18:00 Blood - Peripheral Venous Blood Culture - Preliminary NO GROWTH OBTAINED AFTER 48 HOURS, INCUBATION TO CONTINUE FOR 3 DAYS. 02/24/20 18:15 Blood - Peripheral Venous Blood Culture - Preliminary NO GROWTH OBTAINED AFTER 48 HOURS, INCUBATION TO CONTINUE FOR 3 DAYS. 02/21/20 15:23 Blood - Peripheral Venous Blood Culture - Final NO GROWTH AFTER 5 DAYS INCUBATION 02/21/20 15:35 Blood - Peripheral Venous Blood Culture - Final NO GROWTH AFTER 5 DAYS INCUBATION 02/24/20 00:30 Urine - Urine - Catheterized Urine Culture - Final NO GROWTH OBTAINED 02/05/20 07:50 Blood - Peripheral Venous Blood Culture - Final NO GROWTH AFTER 5 DAYS INCUBATION 02/05/20 08:08 Blood - Peripheral Venous Blood Culture - Final NO GROWTH AFTER 5 DAYS INCUBATION 02/03/20 13:05 Blood - Peripheral Venous Blood Culture - Final NO GROWTH AFTER 5 DAYS INCUBATION 02/03/20 13:05 Blood - Peripheral Venous Blood Culture - Final NO GROWTH AFTER 5 DAYS INCUBATION 02/03/20 16:20 Toe - Right Hallux Gram Stain - Final 02/03/20 16:20 Toe - Right Hallux Wound Culture - Final Klebsiella Pneumoniae - Esbl Proteus Mirabilis Enterococcus Faecalis a/p infected fem/pop wound- dapto and ertapenem, await operative cultures check cplk and crp contact isolation diabetic foot ulcer PVD nonhealing wound gangrenous second toe dementia Problem List - Problems (1) Fever Code(s): R50.9 - FEVER, UNSPECIFIED (2) Diabetic foot infection Code(s): E11.628 - TYPE 2 DIABETES MELLITUS WITH OTHER SKIN COMPLICATIONS; L08.9 - LOCAL INFECTION OF THE SKIN AND SUBCUTANEOUS TISSUE, UNSP (3) PVD (peripheral vascular disease) Code(s): I73.9 - PERIPHERAL VASCULAR DISEASE, UNSPECIFIED (4) CKD (chronic kidney disease) Code(s): N18.9 - CHRONIC KIDNEY DISEASE, UNSPECIFIED (5) Anemia Code(s): D64.9 - ANEMIA, UNSPECIFIED
[2020-02-27 12:58] LABS: ALBUMIN 1.3 g/dl (3.4-5.0); BILIRUBIN,TOTAL 0.4 mg/dL (0.2-1); CALCIUM 7.9 mg/dL (8.5-10.1); CREATININE 1.3 mg/dL (0.55-1.3); MAGNESIUM 1.7 mg/dL (1.8-2.4); POTASSIUM 4.1 mmol/L (3.5-5.1); TOT PROT 5.7 g/dl (6.4-8.2)
[2020-02-27] MEDS: ERTAPENEM SODIUM 1 GM in SODIUM CHLORIDE 50 ML IVPB SCH (12:58)
[2020-02-27] MEDS ORDERED: VANCOMYCIN 1 GRAM (PRE-DOCKED) 1,000 MG/250 ML BAG IVPB SCH (15:00)
[2020-02-27] MEDS: LACTATED RINGERS SOLUTION 1,000 ML/1,000 ML INFUS.BAG IV SCH (16:14)
[2020-02-27] MEDS: DAPTOMYCIN 400 MG in SODIUM CHLORIDE 50 ML IVPB SCH (18:34)
[2020-02-27] MEDS ORDERED: INSULIN (NOVOLOG) ASPART 100 UNITS/ML 10ML VIAL ONE (20:51)
[2020-02-27] MEDS: MAGNESIUM OXIDE 400 MG TABLET (FP) PO SCH (21:13)
[2020-02-27] MEDS: ATORVASTATIN CA 20 MG TABLET (FP) PO SCH (21:13)
[2020-02-27] MEDS: INSULIN (LEVEMIR) 100 UNITS/ML UNITS SQ SCH (21:13)
[2020-02-27] MEDS: QUEtiapine FUMARATE 25 MG TABLET PO SCH (21:14)
[2020-02-28] MEDS: GABAPENTIN 300 MG CAPSULE PO SCH ×3 (06:00→21:09)
[2020-02-28] MEDS: INSULIN SLIDING SCALE (NOVOLOG) 1 VIAL SQ SCH ×4 (06:00→21:22)
[2020-02-28 07:55] LABS: BASO % 0.4 % (0-2.0); EOS % 6.5 % (0-4.5); HEMATOCRIT 25.3 % (35.4-49); HEMOGLOBIN 8.4 GM/dL (11.7-16.9); LYMPH % 12.3 % (8-40); MCH 27.9 pg (25.7-33.7); MCHC 33.3 g/dl (32.0-35.9); MEAN CELL VOLUME 83.7 fl (80-96); MEAN PLT VOLUME 7.5 fl (7.5-11.1); MONO % 10.2 % (3.8-10.2); NEUT % 70.6 % (42.8-82.8); PLATELET COUNT 295 K/MM3 (134-434); RBC 3.03 M/mm3 (4.00-5.60); RDW 15.7 % (11.9-15.9)
[2020-02-28 08:26] LABS: ALBUMIN 1.3 g/dl (3.4-5.0); BILIRUBIN,TOTAL 0.3 mg/dL (0.2-1); BLOOD UREA NITROGEN 23.5 mg/dL (7-18); CALCIUM 8.4 mg/dL (8.5-10.1); CREATININE 1.2 mg/dL (0.55-1.3); MAGNESIUM 1.7 mg/dL (1.8-2.4); POTASSIUM 3.8 mmol/L (3.5-5.1); TOT PROT 5.9 g/dl (6.4-8.2)
[2020-02-28] MEDS ORDERED: PT OWN MED DRAWER 7, Y5N ONE (09:59)
[2020-02-28] MEDS: DOCUSATE SODIUM 100 MG CAPSULE (FP) PO SCH ×2 (10:03→21:08)
[2020-02-28] MEDS: CARVEDILOL 6.25 MG TABLET (FP) PO SCH ×2 (10:03→21:09)
[2020-02-28] MEDS: ASPIRIN 81 MG CHEWABLE TABLETS PO SCH (10:03)
[2020-02-28] MEDS: ERTAPENEM SODIUM 1 GM in SODIUM CHLORIDE 50 ML IVPB SCH (10:04)
[2020-02-28] MEDS: DIGOXIN 0.125 MG TABLET (FP) PO SCH (10:04)
[2020-02-28] MEDS: MAGNESIUM OXIDE 400 MG TABLET (FP) PO SCH ×2 (10:05→21:09)
[2020-02-28] MEDS: AMINO ACIDS/PROTEIN HYDROLYS 30 ML LIQUID.PKT PO SCH (10:06)
[2020-02-28] MEDS: FAMOTIDINE 20 MG TABLET PO SCH ×2 (10:06→21:08)
[2020-02-28] MEDS: POLYETHYLENE GLYCOL 3350 119 GM BTL PO SCH (10:06)
[2020-02-28] MEDS: MULTIVITAMINS (DAILY MVI) TABLET (FP) PO SCH (10:07)
[2020-02-28] MEDS: DAPTOMYCIN 400 MG in SODIUM CHLORIDE 50 ML IVPB SCH (10:48)
[2020-02-28] MEDS: HEPARIN NA (PORCINE) 5,000 UNITS/ML 1ML VIAL SQ SCH ×2 (10:48→21:09)
--- NOTE | 2020-02-28 10:50 | PN ---
Progress Note (short form) - Note Progress Note: s: no cp sob palps dizzy Current Medications Generic Name Dose Route Start Last Admin Trade Name Freq PRN Reason Stop Dose Admin Acetaminophen 650 mg 02/26/20 16:22 Tylenol - PO Q4H PRN FEVER Amino Acids 30 ml 02/27/20 10:00 02/28/20 10:06 Prosource No Carb Liquid Pkt PO 30 ml DAILY [facility] Administration Artificial Tears 1 drop 02/26/20 16:22 Artificial Tears OU Q6H PRN DRY EYES Aspirin 81 mg 02/27/20 10:00 02/28/20 10:03 Asa - PO 81 mg DAILY [facility] Administration Atorvastatin Calcium 20 mg 02/26/20 22:00 02/27/20 21:13 Lipitor - PO 20 mg HS [facility] Administration Carvedilol 6.25 mg 02/26/20 22:00 02/28/20 10:03 Coreg - PO 6.25 mg BID [facility] Administration Digoxin 0.125 mg 02/27/20 10:00 02/28/20 10:04 Lanoxin - PO 0.125 mg DAILY [facility] Administration Docusate Sodium 100 mg 02/26/20 22:00 02/28/20 10:03 Colace - PO 100 mg BID [facility] Administration Famotidine 20 mg 02/26/20 22:00 02/28/20 10:06 Pepcid - PO 20 mg BID [facility]GO Administration Gabapentin 300 mg 02/26/20 22:00 02/28/20 06:00 Neurontin - PO 300 mg TID [facility] Administration Heparin Sodium (Porcine) 5,000 unit 02/26/20 22:00 02/28/20 10:48 Heparin - SQ 5,000 unit BID [facility] Administration Ertapenem 1 gm/ Sodium 50 mls @ 100 mls/hr 02/27/20 10:00 02/28/20 10:04 Chloride IVPB 100 mls/hr DAILY [facility] Administration Lactated Ringer's 1,000 ml in 1,000 mls @ 75 mls/hr 02/26/20 16:22 02/27/20 16:14 Lactated Ringers Solution IV 75 mls/hr ASDIR [facility] Administration Daptomycin 400 mg/ Sodium 50 mls @ 50 mls/hr 02/27/20 13:00 02/28/20 10:48 Chloride IVPB 50 mls/hr DAILY [facility] Administration Protocol Insulin Aspart 1 vial 02/26/20 16:30 02/28/20 06:00 Novolog Vial Sliding Scale - SQ Not Given ACHS [facility] Protocol Insulin Detemir 45 units 02/26/20 22:00 02/27/20 21:13 Levemir Vial SQ 45 unit HS [facility] Administration Magnesium Oxide 400 mg 02/27/20 22:00 02/28/20 10:05 Mag-Ox - PO 400 mg BID [facility] Administration Multivitamins/Minerals/Vitamin C 1 tab 02/27/20 10:00 02/28/20 10:07 Tab-A-Vit - PO 1 tab DAILY [facility] Administration Polyethylene Glycol 17 gm 02/27/20 10:00 02/28/20 10:06 Miralax (For Daily Use) - PO 17 gm DAILY [facility] Administration Quetiapine Fumarate 50 mg 02/26/20 22:00 02/27/20 21:14 Seroquel - PO 50 mg HS [facility] Administration Vital Signs Period Temp Pulse Resp BP Sys/Leahy Pulse Ox Last 24 Hr 97.8 F-99.2 F 83-106 18-18 134-174/59-84 95-98 Constitutional: Yes: Well Nourished, No Distress Eyes: No: Sclera Icterus HENT: No: Nasal Congestion Respiratory: Yes: CTA Bilaterally. No: Accessory Muscle Use, Rales, Wheezes Gastrointestinal: Yes: Normal Bowel Sounds. No: Distention, Hepatomegaly, Palpable Mass, Tenderness Cardiovascular: Yes: Regular Rate and Rhythm JVD: No Heart Sounds: Yes: S1, S2. No: Gallop Murmur: No: Systolic Murmur, Diastolic Murmur Edema: No Integumentary: No: Jaundice Neurological: Yes: Alert. No: Seizure Psychiatric: No: Agitated CBC, BMP 02/28/20 07:25 02/28/20 07:25 Assessment/Plan echo 01/2020: normal LVEF, nl RV, nl valve function. CXR: ATX vs infiltrate R base, no effusions/congestion mibi 01/2020 mod sized area of inferolateral scar, no ischemia, EF 45% preop CV eval, PAD: -s/p R. Fem-Pop: tolerated surgery well, hemodynamically stable but now with fevers and plan for repeat OR for amputation for gangrene of foot -cannot evaluate for cardiac sx's due to his mental capacity -mult RFs for CAD/cardiomyopathy including DM, prior etoh abuse, age -recent echo unremarkable - mibi shows inferolateral scar, no ischemia - continue statin, plavix as medical management for likely underlying CAD -on digoxin for unclear indication, level ok here, continue - patient is at acceptable risk for vascular surgery/amputation, no further cardiac testing prior to procedure DM: -per hospitalist HTN: -cont present meds HPL: -cont statin
--- NOTE | 2020-02-28 11:00 | PN ---
Physical Exam: SUBJECTIVE: Patient seen and examined, asleep, arousable, clinical laboratory technologist consult for supplements OBJECTIVE: Vital Signs Period Temp Pulse Resp BP Sys/Leahy Pulse Ox Last 24 Hr 97.8 F-99.2 F 83-106 18-18 134-174/59-84 95-98 GENERAL: The patient is asleep, arousable HEAD: Normal with no signs of trauma. EYES: PERRL, extraocular movements intact, sclera anicteric, conjunctiva clear. No ptosis. ENT: Ears normal, nares patent, oropharynx clear without exudates, moist mucous membranes. NECK: Trachea midline, full range of motion, supple. LUNGS: Breath sounds equal, clear to auscultation bilaterally, no wheezes, no crackles, no accessory muscle use. HEART: Regular rate and rhythm, S1, S2 without murmur, rub or gallop. ABDOMEN: Soft, nontender, nondistended, normoactive bowel sounds, no guarding, no rebound, no hepatosplenomegaly, no masses. EXTREMITIES: 2+ pulses, warm, well-perfused, no edema. NEUROLOGICAL: Cranial nerves II through XII grossly intact. Normal speech, gait not observed. PSYCH: Normal mood, normal affect. SKIN: dry necrotic toe, Warm, dry, normal turgor, no rashes or lesions noted Laboratory Results - last 24 hr 02/27/20 02/27/20 02/27/20 11:20 11:20 12:28 WBC 9.0 RBC 2.91 L Hgb 8.2 L Hct 24.4 L MCV 84.0 MCH 28.0 MCHC 33.4 RDW 15.8 Plt Count 281 MPV 7.9 Absolute Neuts (auto) 6.9 Neutrophils % 77.3 Lymphocytes % 9.1 Monocytes % 9.8 Eosinophils % 3.5 Basophils % 0.3 Nucleated RBC % 0 Sodium 138 Potassium 4.1 Chloride 106 Carbon Dioxide 27 Anion Gap 5 L BUN 23.0 H Creatinine 1.3 Est GFR (CKD-EPI)AfAm 67.78 Est GFR (CKD-EPI)NonAf 58.48 POC Glucometer 173 Random Glucose 164 H Calcium 7.9 L Magnesium 1.7 L Total Bilirubin 0.4 AST 84 H ALT 65 H Alkaline Phosphatase 81 Creatine Kinase C-Reactive Protein Total Protein 5.7 L Albumin 1.3 L 0902/27/20 02/28/20 16:24 21:20 05:59 WBC RBC Hgb Hct MCV MCH MCHC RDW Plt Count MPV Absolute Neuts (auto) Neutrophils % Lymphocytes % Monocytes % Eosinophils % Basophils % Nucleated RBC % Sodium Potassium Chloride Carbon Dioxide Anion Gap BUN Creatinine Est GFR (CKD-EPI)AfAm Est GFR (CKD-EPI)NonAf POC Glucometer 162 195 80 Random Glucose Calcium Magnesium Total Bilirubin AST ALT Alkaline Phosphatase Creatine Kinase C-Reactive Protein Total Protein Albumin 02/28/20 02/28/20 02/28/20 07:25 07:25 07:25 WBC 8.0 RBC 3.03 L Hgb 8.4 L Hct 25.3 L MCV 83.7 MCH 27.9 MCHC 33.3 RDW 15.7 Plt Count 295 MPV 7.5 Absolute Neuts (auto) 5.6 Neutrophils % 70.6 Lymphocytes % 12.3 D Monocytes % 10.2 Eosinophils % 6.5 H D Basophils % 0.4 Nucleated RBC % 0 Sodium Cancelled 139 Potassium Cancelled 3.8 Chloride Cancelled 106 Carbon Dioxide Cancelled 28 Anion Gap Cancelled 6 L BUN Cancelled 23.5 H Creatinine Cancelled 1.2 Est GFR (CKD-EPI)AfAm Cancelled 74.66 Est GFR (CKD-EPI)NonAf Cancelled 64.42 POC Glucometer Random Glucose Cancelled 102 Calcium Cancelled 8.4 L Magnesium Cancelled 1.7 L Total Bilirubin Cancelled 0.3 AST Cancelled 61 H ALT Cancelled 59 Alkaline Phosphatase Cancelled 66 Creatine Kinase 36 C-Reactive Protein 14.7 H Total Protein Cancelled 5.9 L Albumin Cancelled 1.3 L Active Medications Generic Name Dose Route Start Last Admin Trade Name Freq PRN Reason Stop Dose Admin Acetaminophen 650 mg 02/26/20 16:22 Tylenol - PO Q4H PRN FEVER Amino Acids 30 ml 02/27/20 10:00 02/28/20 10:06 Prosource No Carb Liquid Pkt PO 30 ml DAILY [facility] Administration Artificial Tears 1 drop 02/26/20 16:22 Artificial Tears OU Q6H PRN DRY EYES Aspirin 81 mg 02/27/20 10:00 02/28/20 10:03 Asa - PO 81 mg DAILY [facility] Administration Atorvastatin Calcium 20 mg 02/26/20 22:00 02/27/20 21:13 Lipitor - PO 20 mg HS [facility] Administration Carvedilol 6.25 mg 02/26/20 22:00 02/28/20 10:03 Coreg - PO 6.25 mg BID [facility] Administration Digoxin 0.125 mg 02/27/20 10:00 02/28/20 10:04 Lanoxin - PO 0.125 mg DAILY [facility] Administration Docusate Sodium 100 mg 02/26/20 22:00 02/28/20 10:03 Colace - PO 100 mg BID [facility] Administration Famotidine 20 mg 02/26/20 22:00 02/28/20 10:06 Pepcid - PO 20 mg BID [facility] Administration Gabapentin 300 mg 02/26/20 22:00 02/28/20 06:00 Neurontin - PO 300 mg TID [facility] Administration Heparin Sodium (Porcine) 5,000 unit 02/26/20 22:00 02/28/20 10:48 Heparin - SQ 5,000 unit BID [facility] Administration Ertapenem 1 gm/ Sodium 50 mls @ 100 mls/hr 02/27/20 10:00 02/28/20 10:04 Chloride IVPB 100 mls/hr DAILY [facility] Administration Lactated Ringer's 1,000 ml in 1,000 mls @ 75 mls/hr 02/26/20 16:22 02/27/20 16:14 Lactated Ringers Solution IV 75 mls/hr ASDIR [facility] Administration Daptomycin 400 mg/ Sodium 50 mls @ 50 mls/hr 02/27/20 13:00 02/28/20 10:48 Chloride IVPB 50 mls/hr DAILY [facility] Administration Protocol Insulin Aspart 1 vial 02/26/20 16:30 02/28/20 06:00 Novolog Vial Sliding Scale - SQ Not Given ACHS [facility] Protocol Insulin Detemir 45 units 02/26/20 22:00 02/27/20 21:13 Levemir Vial SQ 45 unit HS [facility] Administration Magnesium Oxide 400 mg 02/27/20 22:00 02/28/20 10:05 Mag-Ox - PO 400 mg BID [facility] Administration Multivitamins/Minerals/Vitamin C 1 tab 02/27/20 10:00 02/28/20 10:07 Tab-A-Vit - PO 1 tab DAILY [facility] Administration Polyethylene Glycol 17 gm 02/27/20 10:00 02/28/20 10:06 Miralax (For Daily Use) - PO 17 gm DAILY [facility] Administration Quetiapine Fumarate 50 mg 02/26/20 22:00 02/27/20 21:14 Seroquel - PO 50 mg HS [facility] Administration ASSESSMENT/PLAN: Patient is a 64 year old male with a significant past medical history of DM, schizophrenia, HTN, HLD, GERD, dementia, EtOH use disorder who had his right knee great toe amputated apx 1 month ago, presents to the ED on 02/03/2020 with right 2nd digit gangrene. At [facility] pt underwent RLE angiogram which revealed right SFA occlusion. He is being followed by vascular surgery and is s/p fem-pop bypass last week. Right groin wound now with purulent drainage. Right groin wound for a washout 02/25. Patient to be scheduled for right foot TMA with podiatry. Problem List - Problems (1) Fever Assessment/Plan: patient continues with fevers blood cultures on 02/21/2020 negative, repeat blood cultures with no growth to date. He had an angiogram last week of right lower ext and now with collection/drainage over right groin graft wound. s/p washout with Dr. Pineda 02/25. Planned TMA with podiatry pending surgery -ID following-on ertapenem, vanco per ID -wound cx 02/25- group D strep, lactose ferm neg bacilli -UA negative, UC negative -chest xray with poor inspiration, no other acute pathology Code(s): R50.9 - FEVER, UNSPECIFIED (2) Diabetic foot infection Assessment/Plan: -Patient has peripheral artery disease with right foot cellulitis/osteomyelitis -patient is s/P RLE angiogram on 02/04, s/p fem bypass surgery on 02/17 -TMA to be scheduled by podiatry after washout of right groin. Code(s): E11.628 - TYPE 2 DIABETES MELLITUS WITH OTHER SKIN COMPLICATIONS; L08.9 - LOCAL INFECTION OF THE SKIN AND SUBCUTANEOUS TISSUE, UNSP (3) Anemia Assessment/Plan: -Anemia of chronic disease -no signs of bleeding -occult blood negative -s/p 1 unit of prbc on 02/24 -monitor CBC daily Code(s): D64.9 - ANEMIA, UNSPECIFIED (4) CKD (chronic kidney disease) Assessment/Plan: -monitor kidney function -trend intake/output and electrolytes Code(s): N18.9 - CHRONIC KIDNEY DISEASE, UNSPECIFIED (5) Congestive heart failure Assessment/Plan: -Patient has normal ejection fraction, continue coreg, and digoxin, -Stress test completed on 02/09/2020 -no signs of volume overload Code(s): I50.9 - HEART FAILURE, UNSPECIFIED Qualifiers: Heart failure type: unspecified (6) Hypertension Assessment/Plan: -labile BP -currently on coreq 6.25mg bid, digoxin 0.125mg daily Code(s): I10 - ESSENTIAL (PRIMARY) HYPERTENSION (7) Uncontrolled type 2 diabetes mellitus Assessment/Plan: -BGMs improved, goal is to maintain fasting bgms<180 -tightened sliding scale insulin -on levemir 45 units at hs Code(s): E11.65 - TYPE 2 DIABETES MELLITUS WITH HYPERGLYCEMIA (8) DVT prophylaxis Assessment/Plan: -heparin bid Code(s): Z29.9 - ENCOUNTER FOR PROPHYLACTIC MEASURES, UNSPECIFIED Visit type - Emergency Visit Emergency Visit: Yes ED Registration Date: 02/03/20 Care time: The patient presented to the Emergency Department on the above date and was hospitalized for further evaluation of their emergent condition. - New Patient This patient is new to me today: No - Critical Care Critical Care patient: No
--- NOTE | 2020-02-28 15:05 | PN ---
Progress Note (short form) - Note Progress Note: Podiatry F/U: Seen/evaluated at bedside NAD. Appears that fevers have broken. Currently afebrile with VSS. S/p washout of bypass graft site with Dr. Pineda on Saturday. THEE: R foot: pedal pulses nonpalpable TG wnl. There is a first ray diabetic ulcer with fibrotic base, exposed first metatarsal stump, no purulence, no fluctuance, no soft tissue crepitus, no streaking ascending cellulitis, no signs of acute infection. Gangrenous digits 2 and 3 with mummification of digits. Demarcated to level of MTPJs. No signs of acute infection. Imp: 64 year old diabetic male with right forefoot gangrene, infected bypass graft site s/p washout with Dr. Pineda 1. IV abx per infectious disease 2. Continue local care 3. Continue workup for bypass graft infection 4. May need TMA going forward 5. Will follow
[2020-02-28] MEDS: LACTATED RINGERS SOLUTION 1,000 ML/1,000 ML INFUS.BAG IV SCH (16:27)
[2020-02-28] MEDS: ATORVASTATIN CA 20 MG TABLET (FP) PO SCH (21:09)
[2020-02-28] MEDS: QUEtiapine FUMARATE 25 MG TABLET PO SCH (21:10)
[2020-02-28] MEDS: INSULIN (LEVEMIR) 100 UNITS/ML UNITS SQ SCH (21:11)
[2020-02-28] MEDS ORDERED: INSULIN (NOVOLOG) ASPART 100 UNITS/ML 10ML VIAL ONE (21:22)
[2020-02-29] MEDS: GABAPENTIN 300 MG CAPSULE PO SCH ×3 (06:09→23:00)
[2020-02-29] MEDS: INSULIN SLIDING SCALE (NOVOLOG) 1 VIAL SQ SCH ×4 (06:20→23:00)
--- NOTE | 2020-02-29 09:04 | PN ---
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 He is status post an incision and drainage of a groin abscess by Vascular Surgery. He had an episode of urinary retention, had a Rizvi placed for 72 hours. A trial of voiding has failed the patient. He has presently got a Rizvi catheter which is patent. The urine is clear. The patient's T-max was 99.2, blood pressure 143/84. His BUN was 23.5 and creatinine 1.2. His white count is 8000. Hemoglobin is 8.4 and hematocrit 25.3. A urine culture and sensitivity revealed no growth. The patient is on 0.8 mg of Flomax. Will give another trial at voiding in 48 hours. Will follow with you. JUAN PRICE M.D. [id number]
[2020-02-29 09:15] LABS: BASO % 0.3 % (0-2.0); HEMATOCRIT 23.9 % (35.4-49); HEMOGLOBIN 7.9 GM/dL (11.7-16.9); LYMPH % 10.9 % (8-40); MCH 27.7 pg (25.7-33.7); MCHC 33.3 g/dl (32.0-35.9); MEAN CELL VOLUME 83.3 fl (80-96); MEAN PLT VOLUME 7.5 fl (7.5-11.1); MONO % 8.5 % (3.8-10.2); NEUT % 76.3 % (42.8-82.8); PLATELET COUNT 300 K/MM3 (134-434); RBC 2.87 M/mm3 (4.00-5.60); RDW 15.7 % (11.9-15.9); WHITE BLOOD COUNT 8.7 K/mm3 (4.0-10.0)
--- NOTE | 2020-02-29 09:26 | PN ---
Progress Note (short form) - Note Progress Note: s/p washout 02/25 Vital Signs Period Temp Pulse Resp BP Sys/Leahy Pulse Ox Last 24 Hr 98.4 F-99.2 F 75-85 13-19 128-166/63-85 94-99 cor-rrr lungs clear abd soft,nt groin with drainage- brown fluid- copious amounts CBC, BMP 02/29/20 08:15 Microbiology 02/24/20 18:00 Blood - Peripheral Venous Blood Culture - Preliminary NO GROWTH OBTAINED AFTER 96 HOURS, INCUBATION TO CONTINUE FOR 1 DAYS. 02/24/20 18:15 Blood - Peripheral Venous Blood Culture - Preliminary NO GROWTH OBTAINED AFTER 96 HOURS, INCUBATION TO CONTINUE FOR 1 DAYS. 02/26/20 14:37 Groin - Right Gram Stain - Final 02/26/20 14:37 Groin - Right Wound Culture - Preliminary Lactose Fermenting Neg Bacilli Group D Strep Or Entero Coccus Pending Organism 02/24/20 15:30 Groin - Right Gram Stain - Final 02/24/20 15:30 Groin - Right Wound Culture - Final Klebsiella Pneumoniae - Esbl Vr Ec Faecium 02/21/20 15:23 Blood - Peripheral Venous Blood Culture - Final NO GROWTH AFTER 5 DAYS INCUBATION 02/21/20 15:35 Blood - Peripheral Venous Blood Culture - Final NO GROWTH AFTER 5 DAYS INCUBATION 02/24/20 00:30 Urine - Urine - Catheterized Urine Culture - Final NO GROWTH OBTAINED 02/05/20 07:50 Blood - Peripheral Venous Blood Culture - Final NO GROWTH AFTER 5 DAYS INCUBATION 02/05/20 08:08 Blood - Peripheral Venous Blood Culture - Final NO GROWTH AFTER 5 DAYS INCUBATION 02/03/20 13:05 Blood - Peripheral Venous Blood Culture - Final NO GROWTH AFTER 5 DAYS INCUBATION 02/03/20 13:05 Blood - Peripheral Venous Blood Culture - Final NO GROWTH AFTER 5 DAYS INCUBATION 02/03/20 16:20 Toe - Right Hallux Gram Stain - Final 02/03/20 16:20 Toe - Right Hallux Wound Culture - Final Klebsiella Pneumoniae - Esbl Proteus Mirabilis Enterococcus Faecalis Active Medications Acetaminophen (Tylenol -) 650 mg PO Q4H PRN PRN Reason: FEVER Amino Acids (Prosource No Carb Liquid Pkt) 30 ml PO DAILY [facility] Last Admin: 02/28/20 10:06 Dose: 30 ml Documented by: Artificial Tears (Artificial Tears) 1 drop OU Q6H PRN PRN Reason: DRY EYES Aspirin (Asa -) 81 mg PO DAILY [facility] Last Admin: 02/28/20 10:03 Dose: 81 mg Documented by: Atorvastatin Calcium (Lipitor -) 20 mg PO HS [facility] Last Admin: 02/28/20 21:09 Dose: 20 mg Documented by: Carvedilol (Coreg -) 6.25 mg PO BID [facility] Last Admin: 02/28/20 21:09 Dose: 6.25 mg Documented by: Digoxin (Lanoxin -) 0.125 mg PO DAILY [facility] Last Admin: 02/28/20 10:04 Dose: 0.125 mg Documented by: Docusate Sodium (Colace -) 100 mg PO BID [facility] Last Admin: 02/28/20 21:08 Dose: 100 mg Documented by: Famotidine (Pepcid -) 20 mg PO BID [facility] Last Admin: 02/28/20 21:08 Dose: 20 mg Documented by: Gabapentin (Neurontin -) 300 mg PO TID [facility] Last Admin: 02/29/20 06:09 Dose: 300 mg Documented by: Heparin Sodium (Porcine) (Heparin -) 5,000 unit SQ BID [facility] Last Admin: 02/28/20 21:09 Dose: 5,000 unit Documented by: Ertapenem 1 gm/ Sodium (Chloride) 50 mls @ 100 mls/hr IVPB DAILY [facility] Last Admin: 02/28/20 10:04 Dose: 100 mls/hr Documented by: Lactated Ringer's (Lactated Ringers Solution) 1,000 ml in 1,000 mls @ 75 mls/hr IV ASDIR [facility] Last Admin: 02/28/20 16:27 Dose: 75 mls/hr Documented by: Daptomycin 400 mg/ Sodium (Chloride) 50 mls @ 50 mls/hr IVPB DAILY [facility]; Protocol Last Admin: 02/28/20 10:48 Dose: 50 mls/hr Documented by: Insulin Aspart (Novolog Vial Sliding Scale -) 1 vial SQ [facility]; Protocol Last Admin: 02/29/20 06:20 Dose: Not Given Documented by: Insulin Detemir (Levemir Vial) 45 units SQ [facility] Last Admin: 02/28/20 21:11 Dose: 45 unit Documented by: Magnesium Oxide (Mag-Ox -) 400 mg PO BID [facility] Last Admin: 02/28/20 21:09 Dose: 400 mg Documented by: Multivitamins/Minerals/Vitamin C (Tab-A-Vit -) 1 tab PO DAILY [facility] Last Admin: 02/28/20 10:07 Dose: 1 tab Documented by: Polyethylene Glycol (Miralax (For Daily Use) -) 17 gm PO DAILY [facility] Last Admin: 02/28/20 10:06 Dose: 17 gm Documented by: Quetiapine Fumarate (Seroquel -) 50 mg PO HS [facility] Last Admin: 02/28/20 21:10 Dose: 50 mg Documented by: Tamsulosin HCl (Flomax -) 0.4 mg PO DAILY@0830 [facility] a/p infected fem/pop wound- vre and esbl kleb, await operative cultures dapto and ertapenem, await operative cultures needs vascular surgery f/u contact isolation diabetic foot ulcer PVD nonhealing wound gangrenous second toe dementia Problem List - Problems (1) Fever Code(s): R50.9 - FEVER, UNSPECIFIED (2) Diabetic foot infection Code(s): E11.628 - TYPE 2 DIABETES MELLITUS WITH OTHER SKIN COMPLICATIONS; L08.9 - LOCAL INFECTION OF THE SKIN AND SUBCUTANEOUS TISSUE, UNSP (3) PVD (peripheral vascular disease) Code(s): I73.9 - PERIPHERAL VASCULAR DISEASE, UNSPECIFIED (4) CKD (chronic kidney disease) Code(s): N18.9 - CHRONIC KIDNEY DISEASE, UNSPECIFIED (5) Anemia Code(s): D64.9 - ANEMIA, UNSPECIFIED
[2020-02-29 09:29] LABS: ALBUMIN 1.3 g/dl (3.4-5.0); BILIRUBIN,TOTAL 0.2 mg/dL (0.2-1); BLOOD UREA NITROGEN 19.8 mg/dL (7-18); CALCIUM 8.3 mg/dL (8.5-10.1); MAGNESIUM 1.8 mg/dL (1.8-2.4); POTASSIUM 4.2 mmol/L (3.5-5.1); TOT PROT 5.8 g/dl (6.4-8.2)
[2020-02-29] MEDS: AMINO ACIDS/PROTEIN HYDROLYS 30 ML LIQUID.PKT PO SCH ×2 (10:22→16:32)
[2020-02-29] MEDS: CARVEDILOL 6.25 MG TABLET (FP) PO SCH (10:22)
[2020-02-29] MEDS: HEPARIN NA (PORCINE) 5,000 UNITS/ML 1ML VIAL SQ SCH ×2 (10:22→22:59)
[2020-02-29] MEDS: ASPIRIN 81 MG CHEWABLE TABLETS PO SCH (10:22)
[2020-02-29] MEDS: MAGNESIUM OXIDE 400 MG TABLET (FP) PO SCH ×2 (10:22→22:59)
[2020-02-29] MEDS: DIGOXIN 0.125 MG TABLET (FP) PO SCH (10:23)
[2020-02-29] MEDS: TAMSULOSIN HCL 0.4 MG CAP PO SCH (10:23)
[2020-02-29] MEDS: DOCUSATE SODIUM 100 MG CAPSULE (FP) PO SCH ×2 (10:23→22:58)
--- NOTE | 2020-02-29 10:25 | PN ---
Physical Exam: SUBJECTIVE: Patient seen and examined, NAD BS 66 this morning, levemir dose decreased to 30 U Vasc sx f/u consult placed OBJECTIVE: Vital Signs Period Temp Pulse Resp BP Sys/Leahy Pulse Ox Last 24 Hr 98.8 F-99.2 F 75-80 13-18 130-166/69-85 97-99 GENERAL: The patient is awake, alert, and fully oriented, in no acute distress. HEAD: Normal with no signs of trauma. EYES: PERRL, extraocular movements intact, sclera anicteric, conjunctiva clear. No ptosis. ENT: Ears normal, nares patent, oropharynx clear without exudates, moist mucous membranes. NECK: Trachea midline, full range of motion, supple. LUNGS: Breath sounds equal, clear to auscultation bilaterally, no wheezes, no crackles, no accessory muscle use. HEART: Regular rate and rhythm, S1, S2 without murmur, rub or gallop. ABDOMEN: Soft, nontender, nondistended, normoactive bowel sounds, no guarding, no rebound, no hepatosplenomegaly, no masses. EXTREMITIES: 2+ pulses, warm, well-perfused, no edema. NEUROLOGICAL: Cranial nerves II through XII grossly intact. Normal speech, gait not observed. PSYCH: Normal mood, normal affect. SKIN: Warm, dry, normal turgor, no rashes or lesions noted Laboratory Results - last 24 hr 02/25/20 02/28/20 02/28/20 08:05 10:58 16:30 WBC RBC Hgb Hct MCV MCH MCHC RDW Plt Count MPV Absolute Neuts (auto) Neutrophils % Lymphocytes % Monocytes % Eosinophils % Basophils % Nucleated RBC % Sodium Potassium Chloride Carbon Dioxide Anion Gap BUN Creatinine Est GFR (CKD-EPI)AfAm Est GFR (CKD-EPI)NonAf POC Glucometer 133 197 Random Glucose Calcium Magnesium Total Bilirubin AST ALT Alkaline Phosphatase Total Protein Albumin Blood Type O POSITIVE Antibody Screen Negative Crossmatch See Detail 02/28/20 02/29/20 02/29/20 21:16 06:13 08:15 WBC 8.7 RBC 2.87 L Hgb 7.9 L Hct 23.9 L MCV 83.3 MCH 27.7 MCHC 33.3 RDW 15.7 Plt Count 300 MPV 7.5 Absolute Neuts (auto) 6.6 Neutrophils % 76.3 Lymphocytes % 10.9 Monocytes % 8.5 Eosinophils % 4.0 Basophils % 0.3 Nucleated RBC % 0 Sodium Potassium Chloride Carbon Dioxide Anion Gap BUN Creatinine Est GFR (CKD-EPI)AfAm Est GFR (CKD-EPI)NonAf POC Glucometer 247 66 Random Glucose Calcium Magnesium Total Bilirubin AST ALT Alkaline Phosphatase Total Protein Albumin Blood Type Antibody Screen Crossmatch 02/29/20 08:15 WBC RBC Hgb Hct MCV MCH MCHC RDW Plt Count MPV Absolute Neuts (auto) Neutrophils % Lymphocytes % Monocytes % Eosinophils % Basophils % Nucleated RBC % Sodium 141 Potassium 4.2 Chloride 107 Carbon Dioxide 26 Anion Gap 8 BUN 19.8 H Creatinine 1.0 Est GFR (CKD-EPI)AfAm 93.08 Est GFR (CKD-EPI)NonAf 80.31 POC Glucometer Random Glucose 127 H Calcium 8.3 L Magnesium 1.8 Total Bilirubin 0.2 AST 68 H ALT 65 H Alkaline Phosphatase 88 Total Protein 5.8 L Albumin 1.3 L Blood Type Antibody Screen Crossmatch Active Medications Generic Name Dose Route Start Last Admin Trade Name Freq PRN Reason Stop Dose Admin Acetaminophen 650 mg 02/26/20 16:22 Tylenol - PO Q4H PRN FEVER Amino Acids 30 ml 02/27/20 10:00 02/28/20 10:06 Prosource No Carb Liquid Pkt PO 30 ml DAILY [facility] Administration Artificial Tears 1 drop 02/26/20 16:22 Artificial Tears OU Q6H PRN DRY EYES Aspirin 81 mg 02/27/20 10:00 02/28/20 10:03 Asa - PO 81 mg DAILY [facility] Administration Atorvastatin Calcium 20 mg 02/26/20 22:00 02/28/20 21:09 Lipitor - PO 20 mg HS [facility] Administration Carvedilol 6.25 mg 02/26/20 22:00 02/28/20 21:09 Coreg - PO 6.25 mg BID [facility] Administration Digoxin 0.125 mg 02/27/20 10:00 02/28/20 10:04 Lanoxin - PO 0.125 mg DAILY [facility] Administration Docusate Sodium 100 mg 02/26/20 22:00 02/28/20 21:08 Colace - PO 100 mg BID [facility] Administration Famotidine 20 mg 02/26/20 22:00 02/28/20 21:08 Pepcid - PO 20 mg BID [facility] Administration Gabapentin 300 mg 02/26/20 22:00 02/29/20 06:09 Neurontin - PO 300 mg TID [facility] Administration Heparin Sodium (Porcine) 5,000 unit 02/26/20 22:00 02/28/20 21:09 Heparin - SQ 5,000 unit BID [facility] Administration Ertapenem 1 gm/ Sodium 50 mls @ 100 mls/hr 02/27/20 10:00 02/28/20 10:04 Chloride IVPB 100 mls/hr DAILY [facility] Administration Lactated Ringer's 1,000 ml in 1,000 mls @ 75 mls/hr 02/26/20 16:22 02/28/20 16:27 Lactated Ringers Solution IV 75 mls/hr ASDIR [facility] Administration Daptomycin 400 mg/ Sodium 50 mls @ 50 mls/hr 02/27/20 13:00 02/28/20 10:48 Chloride IVPB 50 mls/hr DAILY [facility] Administration Protocol Insulin Aspart 1 vial 02/26/20 16:30 02/29/20 06:20 Novolog Vial Sliding Scale - SQ Not Given ACHS [facility] Protocol Insulin Detemir 30 units 02/29/20 10:23 Levemir Vial SQ HS [facility] Magnesium Oxide 400 mg 02/27/20 22:00 02/28/20 21:09 Mag-Ox - PO 400 mg BID [facility] Administration Multivitamins/Minerals/Vitamin C 1 tab 02/27/20 10:00 02/28/20 10:07 Tab-A-Vit - PO 1 tab DAILY [facility] Administration Polyethylene Glycol 17 gm 02/27/20 10:00 02/28/20 10:06 Miralax (For Daily Use) - PO 17 gm DAILY [facility] Administration Quetiapine Fumarate 50 mg 02/26/20 22:00 02/28/20 21:10 Seroquel - PO 50 mg HS [facility] Administration Tamsulosin HCl 0.4 mg 02/29/20 08:30 Flomax - PO DAILY@0830 [facility] ASSESSMENT/PLAN: Patient is a 64 year old male with a significant past medical history of DM, schizophrenia, HTN, HLD, GERD, dementia, EtOH use disorder who had his right knee great toe amputated apx 1 month ago, presents to the ED on 02/03/2020 with right 2nd digit gangrene. At [facility] pt underwent RLE angiogram which revealed right SFA occlusion. He is being followed by vascular surgery and is s/p fem-pop bypass last week. Right groin wound now with purulent drainage. Right groin wound for a washout 02/25. Patient to be scheduled for right foot TMA with podi atry. Problem List - Problems (1) Fever Assessment/Plan: patient continues with fevers blood cultures on 02/21/2020 negative, repeat blood cultures with no growth to date. He had an angiogram last week of right lower ext and now with collection/drainage over right groin graft wound. s/p washout with Dr. Pineda 02/25. Planned TMA with podiatry pending surgery -ID following-on ertapenem, vanco per ID -right groin drainage- brown fluid- copious amounts -wound cx 02/25- group D strep -UA negative, UC negative -chest xray with poor inspiration, no other acute pathology Code(s): R50.9 - FEVER, UNSPECIFIED (2) Diabetic foot infection Assessment/Plan: -Patient has peripheral artery disease with right foot cellulitis/osteomyelitis -patient is s/P RLE angiogram on 02/04, s/p fem bypass surgery on 02/17 -TMA to be scheduled by podiatry after washout of right groin. Code(s): E11.628 - TYPE 2 DIABETES MELLITUS WITH OTHER SKIN COMPLICATIONS; L08.9 - LOCAL INFECTION OF THE SKIN AND SUBCUTANEOUS TISSUE, UNSP (3) Anemia Assessment/Plan: -Anemia of chronic disease -no signs of bleeding -occult blood negative -s/p 1 unit of prbc on 02/24 -monitor CBC daily Code(s): D64.9 - ANEMIA, UNSPECIFIED (4) CKD (chronic kidney disease) Assessment/Plan: -monitor kidney function -trend intake/output and electrolytes Code(s): N18.9 - CHRONIC KIDNEY DISEASE, UNSPECIFIED (5) Congestive heart failure Assessment/Plan: -Patient has normal ejection fraction, continue coreg, and digoxin, -Stress test completed on 02/09/2020 -no signs of volume overload Code(s): I50.9 - HEART FAILURE, UNSPECIFIED Qualifiers: Heart failure type: unspecified (6) Hypertension Assessment/Plan: -labile BP -currently on coreq 6.25mg bid, digoxin 0.125mg daily Code(s): I10 - ESSENTIAL (PRIMARY) HYPERTENSION (7) Uncontrolled type 2 diabetes mellitus Assessment/Plan: -BGMs improved, goal is to maintain fasting bgms<180 -tightened sliding scale insulin -on levemir dose decreased to 30 units Code(s): E11.65 - TYPE 2 DIABETES MELLITUS WITH HYPERGLYCEMIA (8) DVT prophylaxis Assessment/Plan: -heparin bid Code(s): Z29.9 - ENCOUNTER FOR PROPHYLACTIC MEASURES, UNSPECIFIED Visit type - Emergency Visit Emergency Visit: Yes ED Registration Date: 02/03/20 Care time: The patient presented to the Emergency Department on the above date and was hospitalized for further evaluation of their emergent condition. - New Patient This patient is new to me today: No - Critical Care Critical Care patient: No
[2020-02-29] MEDS: MULTIVITAMINS (DAILY MVI) TABLET (FP) PO SCH (10:26)
[2020-02-29] MEDS: DAPTOMYCIN 400 MG in SODIUM CHLORIDE 50 ML IVPB SCH (10:26)
[2020-02-29] MEDS: POLYETHYLENE GLYCOL 3350 119 GM BTL PO SCH (10:26)
[2020-02-29] MEDS: FAMOTIDINE 20 MG TABLET PO SCH ×2 (10:26→22:58)
--- NOTE | 2020-02-29 10:49 | PN ---
Progress Note (short form) - Note Progress Note: s: no cp sob palps dizzy Current Medications Generic Name Dose Route Start Last Admin Trade Name Freq PRN Reason Stop Dose Admin Acetaminophen 650 mg 02/26/20 16:22 Tylenol - PO Q4H PRN FEVER Amino Acids 30 ml 02/27/20 10:00 02/29/20 10:22 Prosource No Carb Liquid Pkt PO 30 ml DAILY HUGO Administration Artificial Tears 1 drop 02/26/20 16:22 Artificial Tears OU Q6H PRN DRY EYES Aspirin 81 mg 02/27/20 10:00 02/29/20 10:22 Asa - PO 81 mg DAILY HUGO Administration Atorvastatin Calcium 20 mg 02/26/20 22:00 02/28/20 21:09 Lipitor - PO 20 mg HS HUGO Administration Digoxin 0.125 mg 02/27/20 10:00 02/29/20 10:23 Lanoxin - PO 0.125 mg DAILY HUGO Administration Docusate Sodium 100 mg 02/26/20 22:00 02/29/20 10:23 Colace - PO 100 mg BID HUGO Administration Famotidine 20 mg 02/26/20 22:00 02/29/20 10:26 Pepcid - PO 20 mg BID HUGO Administration Gabapentin 300 mg 02/26/20 22:00 02/29/20 06:09 Neurontin - PO 300 mg TID HUGO Administration Heparin Sodium (Porcine) 5,000 unit 02/26/20 22:00 02/29/20 10:22 Heparin - SQ 5,000 unit BID HUGO Administration Ertapenem 1 gm/ Sodium 50 mls @ 100 mls/hr 02/27/20 10:00 02/28/20 10:04 Chloride IVPB 100 mls/hr DAILY HUGO Administration Lactated Ringer's 1,000 ml in 1,000 mls @ 75 mls/hr 02/26/20 16:22 02/28/20 16:27 Lactated Ringers Solution IV 75 mls/hr ASDIR HUGO Administration Daptomycin 400 mg/ Sodium 50 mls @ 50 mls/hr 02/27/20 13:00 02/29/20 10:26 Chloride IVPB 50 mls/hr DAILY HUGO Administration Protocol Insulin Aspart 1 vial 02/26/20 16:30 02/29/20 06:20 Novolog Vial Sliding Scale - SQ Not Given ACHS HUGO Protocol Insulin Detemir 30 units 02/29/20 10:23 Levemir Vial SQ HS HUGO Magnesium Oxide 400 mg 02/27/20 22:00 02/29/20 10:22 Mag-Ox - PO 400 mg BID HUGO Administration Multivitamins/Minerals/Vitamin C 1 tab 02/27/20 10:00 02/29/20 10:26 Tab-A-Vit - PO 1 tab DAILY HUGO Administration Polyethylene Glycol 17 gm 02/27/20 10:00 02/29/20 10:26 Miralax (For Daily Use) - PO 17 gm DAILY HUGO Administration Quetiapine Fumarate 50 mg 02/26/20 22:00 02/28/20 21:10 Seroquel - PO 50 mg HS HUGO Administration Tamsulosin HCl 0.4 mg 02/29/20 08:30 02/29/20 10:23 Flomax - PO 0.4 mg DAILY@0830 HUGO Administration Vital Signs Period Temp Pulse Resp BP Sys/Leahy Pulse Ox Last 24 Hr 98.8 F-99.2 F 75-80 13-18 130-166/69-85 97-99 Constitutional: Yes: Well Nourished, No Distress Eyes: No: Sclera Icterus HENT: No: Nasal Congestion Respiratory: Yes: CTA Bilaterally. No: Accessory Muscle Use, Rales, Wheezes Gastrointestinal: Yes: Normal Bowel Sounds. No: Distention, Hepatomegaly, Palpable Mass, Tenderness Cardiovascular: Yes: Regular Rate and Rhythm JVD: No Heart Sounds: Yes: S1, S2. No: Gallop Murmur: No: Systolic Murmur, Diastolic Murmur Edema: No Integumentary: No: Jaundice Neurological: Yes: Alert. No: Seizure Psychiatric: No: Agitated CBC, BMP 02/29/20 08:15 02/29/20 08:15 Assessment/Plan echo 01/2020: normal LVEF, nl RV, nl valve function. CXR: ATX vs infiltrate R base, no effusions/congestion mibi 01/2020 mod sized area of inferolateral scar, no ischemia, EF 45% preop CV eval, PAD: -s/p R. Fem-Pop: tolerated surgery well, hemodynamically stable but now with fevers and plan for repeat OR for amputation for gangrene of foot -cannot evaluate for cardiac sx's due to his mental capacity -mult RFs for CAD/cardiomyopathy including DM, prior etoh abuse, age -recent echo unremarkable - mibi shows inferolateral scar, no ischemia - continue statin, plavix as medical management for likely underlying CAD -on digoxin for unclear indication, level ok here, continue - patient is at acceptable risk for vascular surgery/amputation, no further cardiac testing prior to procedure DM: -per hospitalist HTN: -elevated at times, will increase coreg to 12.5 bid HPL: -cont statin
[2020-02-29] MEDS: ERTAPENEM SODIUM 1 GM in SODIUM CHLORIDE 50 ML IVPB SCH (11:11)
--- NOTE | 2020-02-29 12:34 | PN ---
Progress Note (short form) - Note Progress Note: Vascular surgery Pt seen and examined. WBC count coming down. Cx shows kleb, enterococus. Low grade 99 fevers. Pt has drainage from right groin. Will def need another washout. At this point we have to assume ptfe graft is seeded with infection. Will wash out this week. might need vac therapy. If pt cannot be supressed with antiboitics, will need to remove graft. Thien Pineda DO
[2020-02-29] MEDS: ACETAMINOPHEN 325 MG TABLET (FP) PO PRN (20:02)
[2020-02-29] MEDS: ATORVASTATIN CA 20 MG TABLET (FP) PO SCH (22:57)
[2020-02-29] MEDS: QUEtiapine FUMARATE 25 MG TABLET PO SCH (22:58)
[2020-02-29] MEDS: CARVEDILOL 12.5 MG TABLET (FP) PO SCH (22:58)
[2020-02-29] MEDS: INSULIN (LEVEMIR) 100 UNITS/ML UNITS SQ SCH (23:01)
[2020-03-01] MEDS: GABAPENTIN 300 MG CAPSULE PO SCH ×3 (06:38→22:03)
[2020-03-01] MEDS: INSULIN SLIDING SCALE (NOVOLOG) 1 VIAL SQ SCH ×4 (06:38→22:01)
[2020-03-01] MEDS: ACETAMINOPHEN 325 MG TABLET (FP) PO PRN (06:40)
--- NOTE | 2020-03-01 09:52 | PROC ---
VAC Application - Indications Surgical A decision was made to utilize Negative Pressure Therapy (Veraflo) to assist in continuous wound irrigation in hopes of rle bypass graft preservation. POD #4 s/p Incision and drainage of abscess right groin. Groin was then stapled closed as PTFE would've been exposed. - Wound description Wound location: Other (Right groin ~10cm. Inferior pole of wound opened about 3.5cm (no graft exposed). Copious purulent drainage) Wound Description: Muscle exposed: No, Tendon exposed: No, Bone exposed: No, Undermining: No - Device VAC Selection: Veraflo - Procedure Area cleansed. Prepped/draped. Manufacturers perforated webster foam tailored to fit just inside of inferior wound opening. An occlusive dressing applied. Suction disc placed in location so as not to be uncomfortable for the patient or cause any pressure point. Good seal as verified by complete foam collapse and no leak on unit monitor. Pressure set to 125 mmHg, continuous. Veraflo Settings: Soak time: 2 mins Volume: 8mL Frequency: Every 2 hours - CPT Code CPT code: [id number] <50 sq cm
[2020-03-01] MEDS: FAMOTIDINE 20 MG TABLET PO SCH ×2 (09:53→22:02)
[2020-03-01] MEDS: MULTIVITAMINS (DAILY MVI) TABLET (FP) PO SCH (09:53)
[2020-03-01] MEDS: DIGOXIN 0.125 MG TABLET (FP) PO SCH (09:53)
[2020-03-01] MEDS: CARVEDILOL 12.5 MG TABLET (FP) PO SCH ×2 (09:53→22:02)
[2020-03-01] MEDS: ASPIRIN 81 MG CHEWABLE TABLETS PO SCH (09:53)
[2020-03-01] MEDS: DOCUSATE SODIUM 100 MG CAPSULE (FP) PO SCH ×2 (09:53→22:03)
[2020-03-01] MEDS: AMINO ACIDS/PROTEIN HYDROLYS 30 ML LIQUID.PKT PO SCH ×2 (09:53→18:08)
[2020-03-01] MEDS: ERTAPENEM SODIUM 1 GM in SODIUM CHLORIDE 50 ML IVPB SCH (09:54)
[2020-03-01] MEDS: TAMSULOSIN HCL 0.4 MG CAP PO SCH (09:54)
[2020-03-01] MEDS: HEPARIN NA (PORCINE) 5,000 UNITS/ML 1ML VIAL SQ SCH ×2 (09:55→22:03)
[2020-03-01] MEDS: POLYETHYLENE GLYCOL 3350 119 GM BTL PO SCH (09:56)
[2020-03-01] MEDS: MAGNESIUM OXIDE 400 MG TABLET (FP) PO SCH ×2 (09:56→22:02)
--- NOTE | 2020-03-01 10:55 | PN ---
DATE OF VISIT: DATE OF DICTATION: 03/01/2020 SUBJECTIVE: The patient is a 64-year-old male with a history of severe vascular disease. He was admitted via the emergency room on February 03, 2020. He also has history of dementia, atrial fibrillation, diabetes, heart failure, dyslipidemia, and right toe gangrene. Also, has history of severe prostatism for which he was on Flomax 0.4 mg daily, folic acid. Rizvi catheter was removed 48 hours later and a trial at voiding was commenced. This was unsuccessful. The catheter had to be reinserted. The patient had a positive urine for ESBL Klebsiella as well as Proteus mirabilis. We will attempt again to discontinue Rizvi and give trial at voiding. The patient was explained the situation and he agrees to the plan. JUAN PRICE M.D. [id number]
[2020-03-01] MEDS ORDERED: INSULIN (NOVOLOG) ASPART 100 UNITS/ML 10ML VIAL ONE (11:07)
[2020-03-01 11:29] LABS: BASO % 0.4 % (0-2.0); EOS % 4.3 % (0-4.5); HEMATOCRIT 26.7 % (35.4-49); HEMOGLOBIN 8.8 GM/dL (11.7-16.9); MCH 27.4 pg (25.7-33.7); MCHC 32.8 g/dl (32.0-35.9); MEAN CELL VOLUME 83.8 fl (80-96); MEAN PLT VOLUME 7.3 fl (7.5-11.1); MONO % 7.4 % (3.8-10.2); NEUT % 75.9 % (42.8-82.8); PLATELET COUNT 360 K/MM3 (134-434); RBC 3.19 M/mm3 (4.00-5.60); RDW 15.5 % (11.9-15.9); WHITE BLOOD COUNT 7.4 K/mm3 (4.0-10.0)
--- NOTE | 2020-03-01 11:50 | OP ---
DATE OF OPERATION: 02/26/2020 PREOPERATIVE DIAGNOSIS: Right groin infection. POSTOPERATIVE DIAGNOSIS: Right groin infection. PROCEDURE: Right groin incision and drainage. SURGEON: Thien Osman MD ANESTHESIA: Fractional. BLOOD LOSS: 20 mL. INDICATIONS: The patient is a 64-year-old male that came from a group home and we did a right femoral-popliteal bypass with PTFE. Thereafter, he had developed fevers and there was drainage of pus coming from the right groin. It was decided that it would need to be opened and drained. The patient's family consented to the procedure understanding all risks, benefits, and alternatives and understanding the risk of infection, bleeding, confirmation, and loss of limb. DETAILS OF PROCEDURE: We then brought the patient to the OR and removed our old agnes fro the staple line in the right groin. The right groin was prepped and draped in a sterile surgical manner. We then opened the wound. There was annmarie pus around our graft. We went and cultured all the pus. We then irrigated the wound copiously with a pulse craft superintendent. Once that was done, we tried to look for any pockets deep underneath the inguinal ligament or in the adjoining muscle. We went ahead and placed some Surgicel and irrigated the wound copiously. We then closed the wound with 3-0 Vicryl and closed the subcutaneous tissue with 3-0 Vicryl and closed the skin with skin agnes. The patient will need long-term antibiotics in order to preserve the graft due to now the infection is into the PTFE graft. The bypass graft is patent. The original bypass was done for limb salvage. The areas was then dried . The patient tolerated the procedure well with no complications. THIEN OSMAN DO [id number]
[2020-03-01 12:03] LABS: ALBUMIN 1.5 g/dl (3.4-5.0); BILIRUBIN,TOTAL 0.3 mg/dL (0.2-1); BLOOD UREA NITROGEN 26.7 mg/dL (7-18); CALCIUM 8.8 mg/dL (8.5-10.1); CREATININE 1.2 mg/dL (0.55-1.3); MAGNESIUM 2.1 mg/dL (1.8-2.4); POTASSIUM 4.3 mmol/L (3.5-5.1); TOT PROT 6.6 g/dl (6.4-8.2)
--- NOTE | 2020-03-01 12:19 | PN ---
Progress Note (short form) - Note Progress Note: s: no cp sob palps dizzy Current Medications Generic Name Dose Route Start Last Admin Trade Name Freq PRN Reason Stop Dose Admin Acetaminophen 650 mg 02/26/20 16:22 03/01/20 06:40 Tylenol - PO 650 mg Q4H PRN Administration FEVER Amino Acids 30 ml 02/29/20 17:30 03/01/20 09:53 Prosource No Carb Liquid Pkt PO 30 ml BID@0800,1730 HUGO Administration Artificial Tears 1 drop 02/26/20 16:22 Artificial Tears OU Q6H PRN DRY EYES Aspirin 81 mg 02/27/20 10:00 03/01/20 09:53 Asa - PO 81 mg DAILY HUGO Administration Atorvastatin Calcium 20 mg 02/26/20 22:00 02/29/20 22:57 Lipitor - PO 20 mg HS HUGO Administration Carvedilol 12.5 mg 02/29/20 10:48 03/01/20 09:53 Coreg - PO 12.5 mg BID HUGO Administration Digoxin 0.125 mg 02/27/20 10:00 03/01/20 09:53 Lanoxin - PO 0.125 mg DAILY HUGO Administration Docusate Sodium 100 mg 02/26/20 22:00 03/01/20 09:53 Colace - PO 100 mg BID HUGO Administration Famotidine 20 mg 02/26/20 22:00 03/01/20 09:53 Pepcid - PO 20 mg BID HUGO Administration Gabapentin 300 mg 02/26/20 22:00 03/01/20 06:38 Neurontin - PO 300 mg TID HUGO Administration Heparin Sodium (Porcine) 5,000 unit 02/26/20 22:00 03/01/20 09:55 Heparin - SQ 5,000 unit BID HUGO Administration Ertapenem 1 gm/ Sodium 50 mls @ 100 mls/hr 02/27/20 10:00 03/01/20 09:54 Chloride IVPB 100 mls/hr DAILY HUGO Administration Daptomycin 400 mg/ Sodium 50 mls @ 50 mls/hr 02/27/20 13:00 02/29/20 10:26 Chloride IVPB 50 mls/hr DAILY HUGO Administration Protocol Insulin Aspart 1 vial 02/26/20 16:30 03/01/20 11:31 Novolog Vial Sliding Scale - SQ 8 unit ACHS HUGO Administration Protocol Insulin Detemir 30 units 02/29/20 10:23 02/29/20 23:01 Levemir Vial SQ 30 units HS HUGO Administration Magnesium Oxide 400 mg 02/27/20 22:00 03/01/20 09:56 Mag-Ox - PO 400 mg BID HUGO Administration Multivitamins/Minerals/Vitamin C 1 tab 02/27/20 10:00 03/01/20 09:53 Tab-A-Vit - PO 1 tab DAILY HUGO Administration Polyethylene Glycol 17 gm 02/27/20 10:00 03/01/20 09:56 Miralax (For Daily Use) - PO 17 gm DAILY HUGO Administration Quetiapine Fumarate 50 mg 02/26/20 22:00 02/29/20 22:58 Seroquel - PO 50 mg HS HUGO Administration Tamsulosin HCl 0.4 mg 02/29/20 08:30 03/01/20 09:54 Flomax - PO 0.4 mg DAILY@0830 HUGO Administration Vital Signs Period Temp Pulse Resp BP Sys/Leahy Pulse Ox Last 24 Hr 98 F-99.0 F 70-79 16-18 104-198/62-92 96-99 Constitutional: Yes: Well Nourished, No Distress Eyes: No: Sclera Icterus HENT: No: Nasal Congestion Respiratory: Yes: CTA Bilaterally. No: Accessory Muscle Use, Rales, Wheezes Gastrointestinal: Yes: Normal Bowel Sounds. No: Distention, Hepatomegaly, Palpable Mass, Tenderness Cardiovascular: Yes: Regular Rate and Rhythm JVD: No Heart Sounds: Yes: S1, S2. No: Gallop Murmur: No: Systolic Murmur, Diastolic Murmur Edema: No Integumentary: No: Jaundice Neurological: Yes: Alert. No: Seizure Psychiatric: No: Agitated Assessment/Plan echo 01/2020: normal LVEF, nl RV, nl valve function. CXR: ATX vs infiltrate R base, no effusions/congestion mibi 01/2020 mod sized area of inferolateral scar, no ischemia, EF 45% preop CV eval, PAD: -s/p R. Fem-Pop: tolerated surgery well, hemodynamically stable, however had fevers. s/p washout of groin wound, plan for possible amputation -cannot evaluate for cardiac sx's due to his mental capacity -mult RFs for CAD/cardiomyopathy including DM, prior etoh abuse, age -recent echo unremarkable - mibi shows inferolateral scar, no ischemia - continue statin, plavix as medical management for likely underlying CAD -on digoxin for unclear indication, level ok here, continue - patient is at acceptable risk for vascular surgery/amputation, no further cardiac testing prior to procedure DM: -per hospitalist HTN: -elevated at times, coreg increased to 12.5 bid HPL: -cont statin
--- NOTE | 2020-03-01 12:52 | PN ---
Progress Note (short form) - Note Progress Note: VASCULAR 64yo M h/o Rt fem-pop bypass with subsequent wound infection and washout, seen and examined at bedside. Pt has baseline dementia so history is difficult, but according to Dr. Neal, pt was seen with pus coming out of wound yesterday. Pt cultures show multi drug resistance strains. Last Vital Signs Temp Pulse Resp BP Pulse Ox 98 F 70 18 104/62 98 03/01/20 10:00 03/01/20 10:00 03/01/20 10:00 03/01/20 10:00 03/01/20 10:00 CBC, BMP 03/01/20 10:45 03/01/20 10:45 PE: Gen: Awake and alert Resp Breathing comfortably Rt groin: shows copious purulent fluid coming through incision line between agnes, mild tenderness with palpation. Problem List - Problems (1) Infected surgical wound Assessment/Plan: Plan -spoke with Dr. Pineda who plans on bringing pt to OR on 03/03 for washout and possible removal of graft -will place veraflow vac dressing today (see procedure note) -IV abx as per ID Pt discussed with Dr. Pineda who agrees with plan Code(s): T81.49XA - INFECTION FOLLOWING A PROCEDURE, OTHER SURGICAL SITE, INIT
[2020-03-01] MEDS ORDERED: PT OWN MED DRAWER 7, Y5N ONE (13:00)
[2020-03-01] MEDS: DAPTOMYCIN 400 MG in SODIUM CHLORIDE 50 ML IVPB SCH (13:01)
--- NOTE | 2020-03-01 16:33 | PN ---
Progress Note (short form) - Note Progress Note: s/p washout 02/25 d/w dr forte yesterday and surgical PA today plan for repeat washout on Thrusday now with vac Vital Signs Period Temp Pulse Resp BP Sys/Leahy Pulse Ox Last 24 Hr 98 F-98.8 F 70-88 18-18 104-173/61-92 98-99 cor-rrr lungs clear abd +palpable bladder +liang +vac right groin dressing right foot CBC, BMP 03/01/20 10:45 03/01/20 10:45 Microbiology 02/26/20 14:37 Groin - Right Gram Stain - Final 02/26/20 14:37 Groin - Right Wound Culture - Final Klebsiella Pneumoniae - Esbl Vr Ec Faecium Enterococcus Faecalis 02/24/20 18:00 Blood - Peripheral Venous Blood Culture - Final NO GROWTH AFTER 5 DAYS INCUBATION 02/24/20 18:15 Blood - Peripheral Venous Blood Culture - Final NO GROWTH AFTER 5 DAYS INCUBATION a/p infected fem/pop wound- vre and esbl kleb, continue daptomycin and ertapenem, highly resistant organisms noted needs vascular surgery f/u now with vac in place contact isolation diabetic foot ulcer PVD nonhealing wound gangrenous second toe dementia ?blocked liang- nurse to check Problem List - Problems (1) Fever Code(s): R50.9 - FEVER, UNSPECIFIED (2) Diabetic foot infection Code(s): E11.628 - TYPE 2 DIABETES MELLITUS WITH OTHER SKIN COMPLICATIONS; L08.9 - LOCAL INFECTION OF THE SKIN AND SUBCUTANEOUS TISSUE, UNSP (3) PVD (peripheral vascular disease) Code(s): I73.9 - PERIPHERAL VASCULAR DISEASE, UNSPECIFIED (4) CKD (chronic kidney disease) Code(s): N18.9 - CHRONIC KIDNEY DISEASE, UNSPECIFIED (5) Anemia Code(s): D64.9 - ANEMIA, UNSPECIFIED
[2020-03-01] MEDS: QUEtiapine FUMARATE 25 MG TABLET PO SCH (22:02)
[2020-03-01] MEDS: ATORVASTATIN CA 20 MG TABLET (FP) PO SCH (22:03)
[2020-03-01] MEDS: INSULIN (LEVEMIR) 100 UNITS/ML UNITS SQ SCH (22:03)
[2020-03-02] MEDS: INSULIN SLIDING SCALE (NOVOLOG) 1 VIAL SQ SCH ×4 (06:44→23:47)
[2020-03-02] MEDS: GABAPENTIN 300 MG CAPSULE PO SCH ×3 (06:47→23:47)
[2020-03-02] MEDS: AMINO ACIDS/PROTEIN HYDROLYS 30 ML LIQUID.PKT PO SCH ×2 (08:42→16:53)
[2020-03-02] MEDS: TAMSULOSIN HCL 0.4 MG CAP PO SCH (08:42)
--- NOTE | 2020-03-02 09:50 | PN ---
Progress Note (short form) - Note Progress Note: Podiatry F/U: Seen/evaluated at bedside NAD. Pain to RLE. Currently afebrile with vitals stable. S/p R fem-pop bypass. S/p washout of infected PTFE site. Going to the OR for secondary washout of PTFE, possible removal of bypass graft. Patient has VeraFlo instilled vac therapy at bedside, running 125 mmHg continuous. THEE: R foot: Pedal pulses nonpalpable, TG wnl, CFT delayed to remaining digits. There is a first ray diabetic ulcer with exposed first metatarsal stump, underlying fibrotic base. No purulence, no fluctuance, no streaking ascending cellulitis, no signs of infection. Dry gangrene second and third digits with mummification and demarcation to MTPJs. Duskiness noted to the fourth digit. Imp: 64 year old diabetic PVD male s/p RLE fem-pop bypass, s/p washout of PTFE bypass site, dry forefoot gangrene right foot 1. Continue with IV abx per infectious disease 2. Continue local care to the right foot; VeraFlo vac per vascular team 3. For secondary washout of PTFE, possible removal of bypass graft tomorrow with Dr. Pineda 4. Podiatric surgery on hold until bypass site is cleared 5. Will follow
--- NOTE | 2020-03-02 10:53 | PN ---
Progress Note (short form) - Note Progress Note: S/p Right femoral artery to above knee popliteal artery bypass with PTFE. Angiogram of right lower extremity on 02/17, s/p right groin I&D for infected hematoma on 02/25 Pt seen and examined. Reports he has pain in R groin. Has not been oob. Tolerating PO, liang in place. Denies cp/sob, n/v/d. Vital Signs Temp 98 F 03/02/20 05:00 Pulse 75 03/02/20 05:00 Resp 18 03/02/20 05:00 BP 110/62 03/02/20 05:00 Pulse Ox 100 03/02/20 05:00 Intake & Output 03/01/20 03/01/20 03/02/20 11:59 23:59 11:59 Intake Total 520 300 Output Total 400 2475 450 Balance -400 -1955 -150 Intake: IVPB 100 Oral 420 300 Output: Urine 400 2475 450 Liang 400 2475 450 Other: Voiding Method Indwelling Catheter Indwelling Catheter Bowel Movement Yes Yes No # Bowel Movements 1 CBC, BMP 03/02/20 10:00 Gen: awake, alert, nad Resp: unlabored on RA Abdo: soft, nt/nd Ext: Right groin with veraflo vac in place ++induration and erythema extending l aterally to hip + ttp, distal thigh incision with dressing c/d/i Vac: biphasic harry/pt A/P: 64 y/o M w/ PMHx DM, Schizophrenia, HTN, HLD, GERD, Dementia, EtOH s/p R great toe amputation now with 2nd digit gangrene, S/p Right femoral artery to above knee popliteal artery bypass with PTFE. Angiogram of right lower extremity on 02/17, s/p right groin I&D for infected hematoma on 02/25 continues to be febrile overnight right groin with pus and infected bypass, concern for ?joint infection vs exte nsive lateral thigh/hip infection ct w/ contrast ordered for further evaluation will follow up continue abx per ID continue asa d/w attending Dr Pineda
[2020-03-02 10:58] LABS: BASO % 0.4 % (0-2.0); EOS % 4.2 % (0-4.5); HEMATOCRIT 26.4 % (35.4-49); HEMOGLOBIN 8.5 GM/dL (11.7-16.9); LYMPH % 12.8 % (8-40); MCHC 32.1 g/dl (32.0-35.9); MEAN CELL VOLUME 83.9 fl (80-96); MEAN PLT VOLUME 7.3 fl (7.5-11.1); MONO % 6.8 % (3.8-10.2); NEUT % 75.8 % (42.8-82.8); PLATELET COUNT 387 K/MM3 (134-434); RBC 3.14 M/mm3 (4.00-5.60); RDW 15.6 % (11.9-15.9); WHITE BLOOD COUNT 7.9 K/mm3 (4.0-10.0)
[2020-03-02 11:27] LABS: ALBUMIN 1.5 g/dl (3.4-5.0); BILIRUBIN,TOTAL 0.4 mg/dL (0.2-1); BLOOD UREA NITROGEN 26.8 mg/dL (7-18); CALCIUM 8.4 mg/dL (8.5-10.1); CREATININE 1.2 mg/dL (0.55-1.3); MAGNESIUM 2.1 mg/dL (1.8-2.4); POTASSIUM 4.5 mmol/L (3.5-5.1); TOT PROT 6.4 g/dl (6.4-8.2)
[2020-03-02] MEDS: MAGNESIUM OXIDE 400 MG TABLET (FP) PO SCH ×2 (12:12→23:46)
[2020-03-02] MEDS: FAMOTIDINE 20 MG TABLET PO SCH ×2 (12:12→23:45)
[2020-03-02] MEDS: DOCUSATE SODIUM 100 MG CAPSULE (FP) PO SCH ×2 (12:12→23:46)
[2020-03-02] MEDS: DIGOXIN 0.125 MG TABLET (FP) PO SCH (12:12)
--- NOTE | 2020-03-02 12:12 | PN ---
Physical Exam: SUBJECTIVE: Patient seen and examined OBJECTIVE: Vital Signs Period Temp Pulse Resp BP Sys/Leahy Pulse Ox Last 24 Hr 97.8 F-100.2 F 74-88 14-18 110-155/61-80 95-100 GENERAL: The patient is awake, alert, and fully oriented, in no acute distress. HEAD: Normal with no signs of trauma. EYES: PERRL, extraocular movements intact, sclera anicteric, conjunctiva clear. No ptosis. ENT: Ears normal, nares patent, oropharynx clear without exudates, moist mucous membranes. NECK: Trachea midline, full range of motion, supple. LUNGS: Breath sounds equal, clear to auscultation bilaterally, no wheezes, no crackles, no accessory muscle use. HEART: Regular rate and rhythm, S1, S2 without murmur, rub or gallop. ABDOMEN: Soft, nontender, nondistended, normoactive bowel sounds, no guarding, no rebound, no hepatosplenomegaly, no masses. EXTREMITIES: 2+ pulses, warm, well-perfused, no edema. NEUROLOGICAL: Cranial nerves II through XII grossly intact. Normal speech, gait not observed. PSYCH: Normal mood, normal affect. SKIN: Warm, dry, normal turgor, no rashes or lesions noted Laboratory Results - last 24 hr 03/01/20 03/01/20 03/01/20 10:45 16:20 21:11 WBC RBC Hgb Hct MCV MCH MCHC RDW Plt Count MPV Absolute Neuts (auto) Neutrophils % Lymphocytes % Monocytes % Eosinophils % Basophils % Nucleated RBC % Sodium 141 Potassium 4.3 Chloride 107 Carbon Dioxide 29 Anion Gap 6 L BUN 26.7 H Creatinine 1.2 Est GFR (CKD-EPI)AfAm 74.66 Est GFR (CKD-EPI)NonAf 64.42 POC Glucometer 216 211 Random Glucose 183 H Calcium 8.8 Magnesium 2.1 Total Bilirubin 0.3 AST 44 H ALT 61 Alkaline Phosphatase 95 Total Protein 6.6 Albumin 1.5 L 03/02/20 03/02/20 03/02/20 06:43 10:00 10:00 WBC 7.9 RBC 3.14 L Hgb 8.5 L Hct 26.4 L MCV 83.9 MCH 27.0 MCHC 32.1 RDW 15.6 Plt Count 387 MPV 7.3 L Absolute Neuts (auto) 6.0 Neutrophils % 75.8 Lymphocytes % 12.8 Monocytes % 6.8 Eosinophils % 4.2 Basophils % 0.4 Nucleated RBC % 0 Sodium 142 Potassium 4.5 Chloride 110 H Carbon Dioxide 28 Anion Gap 4 L BUN 26.8 H Creatinine 1.2 Est GFR (CKD-EPI)AfAm 74.66 Est GFR (CKD-EPI)NonAf 64.42 POC Glucometer 135 Random Glucose 191 H Calcium 8.4 L Magnesium 2.1 Total Bilirubin 0.4 AST 28 ALT 46 Alkaline Phosphatase 98 Total Protein 6.4 Albumin 1.5 L Active Medications Generic Name Dose Route Start Last Admin Trade Name Freq PRN Reason Stop Dose Admin Acetaminophen 650 mg 02/26/20 16:22 03/01/20 06:40 Tylenol - PO 650 mg Q4H PRN Administration FEVER Amino Acids 30 ml 02/29/20 17:30 03/02/20 08:42 Prosource No Carb Liquid Pkt PO 30 ml BID@0800,1730 HUGO Administration Artificial Tears 1 drop 02/26/20 16:22 Artificial Tears OU Q6H PRN DRY EYES Aspirin 81 mg 02/27/20 10:00 03/01/20 09:53 Asa - PO 81 mg DAILY HUGO Administration Atorvastatin Calcium 20 mg 02/26/20 22:00 03/01/20 22:03 Lipitor - PO 20 mg HS HUGO Administration Carvedilol 12.5 mg 02/29/20 10:48 03/01/20 22:02 Coreg - PO 12.5 mg BID HUGO Administration Digoxin 0.125 mg 02/27/20 10:00 03/01/20 09:53 Lanoxin - PO 0.125 mg DAILY HUGO Administration Docusate Sodium 100 mg 02/26/20 22:00 03/01/20 22:03 Colace - PO 100 mg BID HUGO Administration Famotidine 20 mg 02/26/20 22:00 03/01/20 22:02 Pepcid - PO 20 mg BID HUGO Administration Gabapentin 300 mg 02/26/20 22:00 03/02/20 06:47 Neurontin - PO 300 mg TID HUGO Administration Heparin Sodium (Porcine) 5,000 unit 02/26/20 22:00 03/01/20 22:03 Heparin - SQ 5,000 unit BID HUGO Administration Ertapenem 1 gm/ Sodium 50 mls @ 100 mls/hr 02/27/20 10:00 03/01/20 09:54 Chloride IVPB 100 mls/hr DAILY HUGO Administration Daptomycin 400 mg/ Sodium 50 mls @ 50 mls/hr 02/27/20 13:00 03/01/20 13:01 Chloride IVPB 50 mls/hr DAILY HUGO Administration Protocol Insulin Aspart 1 vial 02/26/20 16:30 03/02/20 06:44 Novolog Vial Sliding Scale - SQ Not Given ACHS [facility] Protocol Insulin Detemir 30 units 02/29/20 10:23 03/01/20 22:03 Levemir Vial SQ 30 units HS HUGO Administration Magnesium Oxide 400 mg 02/27/20 22:00 03/01/20 22:02 Mag-Ox - PO 400 mg BID HUGO Administration Multivitamins/Minerals/Vitamin C 1 tab 02/27/20 10:00 03/01/20 09:53 Tab-A-Vit - PO 1 tab DAILY HUGO Administration Polyethylene Glycol 17 gm 02/27/20 10:00 03/01/20 09:56 Miralax (For Daily Use) - PO 17 gm DAILY HUGO Administration Quetiapine Fumarate 50 mg 02/26/20 22:00 03/01/20 22:02 Seroquel - PO 50 mg HS [facility] Administration Tamsulosin HCl 0.4 mg 02/29/20 08:30 03/02/20 08:42 Flomax - PO 0.4 mg DAILY@0830 HUGO Administration Microbiology 02/26/20 14:37 Groin - Right Gram Stain - Final 02/26/20 14:37 Groin - Right Wound Culture - Final Klebsiella Pneumoniae - Esbl Vr Ec Faecium Enterococcus Faecalis 02/24/20 18:00 Blood - Peripheral Venous Blood Culture - Final NO GROWTH AFTER 5 DAYS INCUBATION 02/24/20 18:15 Blood - Peripheral Venous Blood Culture - Final NO GROWTH AFTER 5 DAYS INCUBATION 02/24/20 15:30 Groin - Right Gram Stain - Final 02/24/20 15:30 Groin - Right Wound Culture - Final Klebsiella Pneumoniae - Esbl Vr Ec Faecium 02/21/20 15:23 Blood - Peripheral Venous Blood Culture - Final NO GROWTH AFTER 5 DAYS INCUBATION 02/21/20 15:35 Blood - Peripheral Venous Blood Culture - Final NO GROWTH AFTER 5 DAYS INCUBATION 02/24/20 00:30 Urine - Urine - Catheterized Urine Culture - Final NO GROWTH OBTAINED 02/05/20 07:50 Blood - Peripheral Venous Blood Culture - Final NO GROWTH AFTER 5 DAYS INCUBATION 02/05/20 08:08 Blood - Peripheral Venous Blood Culture - Final NO GROWTH AFTER 5 DAYS INCUBATION 02/03/20 13:05 Blood - Peripheral Venous Blood Culture - Final NO GROWTH AFTER 5 DAYS INCUBATION 02/03/20 13:05 Blood - Peripheral Venous Blood Culture - Final NO GROWTH AFTER 5 DAYS INCUBATION 02/03/20 16:20 Toe - Right Hallux Gram Stain - Final 02/03/20 16:20 Toe - Right Hallux Wound Culture - Final Klebsiella Pneumoniae - Esbl Proteus Mirabilis Enterococcus Faecalis ASSESSMENT/PLAN 64 year-old male with a PMH significant for HTN, HLD, Type II IDDM, schizophrenia/dementia, h/o ETOH abuse, peripheral vascular disease s/p recent right great toe amputation at OSH. Admitted for gangrene and infection of the right foot. Had fem-pop bypass on 02/18/20 with PTFE. Post-op course complicated by groin abscess at surgical site. Infected surgical wound --plan is to OR on 03/03 for washout and possible removal of graft --wound vac dressing placed today --Tm 101.2, no leukocytosis --culture growing multi-organisms; crp trending down --continue dapto (day #4), ertapenem (day #4) Peripheral vascular disease Gangrene right foot --podiatry following, deferring TMA until vascular issues stabilize Anemia of chronic disease --transfused 1U PRBC on 02/24 --h/h stable, continue to monitor daily Hypertension --has been labile --continue carvedilol and digoxin Hyperlipidemia --continue Lipitor Type II IDDM --continue Levemir 30U qhs --Novolog sliding scale coverage Heart disease, NOS --seen and evaluated by cardiology, unclear why patient on cardiac meds but continue ASA, statin, beta mis, digoxin BPH --continue tamsulosin FEN Fluids: PO intake adequate Electrolytes: replete as indicated Nutrition: diabetic, low sodium DVT prophylaxis: subq heparin Dispo: continues to require inpatient care. Full code. Visit type - Emergency Visit Emergency Visit: Yes ED Registration Date: 02/03/20 Care time: The patient presented to the Emergency Department on the above date and was hospitalized for further evaluation of their emergent condition. - New Patient This patient is new to me today: Yes Date on this admission: 03/02/20 - Critical Care Critical Care patient: No
[2020-03-02] MEDS: HEPARIN NA (PORCINE) 5,000 UNITS/ML 1ML VIAL SQ SCH ×2 (12:14→23:48)
[2020-03-02] MEDS: CARVEDILOL 12.5 MG TABLET (FP) PO SCH ×2 (12:14→23:46)
[2020-03-02] MEDS: ASPIRIN 81 MG CHEWABLE TABLETS PO SCH (12:14)
[2020-03-02] MEDS: ERTAPENEM SODIUM 1 GM in SODIUM CHLORIDE 50 ML IVPB SCH (12:15)
[2020-03-02] MEDS: MULTIVITAMINS (DAILY MVI) TABLET (FP) PO SCH (12:17)
[2020-03-02] MEDS: POLYETHYLENE GLYCOL 3350 119 GM BTL PO SCH (12:17)
[2020-03-02] MEDS ORDERED: SODIUM CHLORIDE 0.9% 500 ML INFUS.BAG IV SCH (12:30)
--- NOTE | 2020-03-02 12:53 | PN ---
Progress Note (short form) - Note Progress Note: s: no cp sob palps dizzy Current Medications Generic Name Dose Route Start Last Admin Trade Name Freq PRN Reason Stop Dose Admin Acetaminophen 650 mg 02/26/20 16:22 03/01/20 06:40 Tylenol - PO 650 mg Q4H PRN Administration FEVER Amino Acids 30 ml 02/29/20 17:30 03/02/20 08:42 Prosource No Carb Liquid Pkt PO 30 ml BID@0800,1730 HUGO Administration Artificial Tears 1 drop 02/26/20 16:22 Artificial Tears OU Q6H PRN DRY EYES Aspirin 81 mg 02/27/20 10:00 03/02/20 12:14 Asa - PO 81 mg DAILY HUGO Administration Atorvastatin Calcium 20 mg 02/26/20 22:00 03/01/20 22:03 Lipitor - PO 20 mg HS HUGO Administration Carvedilol 12.5 mg 02/29/20 10:48 03/02/20 12:14 Coreg - PO 12.5 mg BID HUGO Administration Digoxin 0.125 mg 02/27/20 10:00 03/02/20 12:12 Lanoxin - PO 0.125 mg DAILY HUGO Administration Docusate Sodium 100 mg 02/26/20 22:00 03/02/20 12:12 Colace - PO 100 mg BID HUGO Administration Famotidine 20 mg 02/26/20 22:00 03/02/20 12:12 Pepcid - PO 20 mg BID HUGO Administration Gabapentin 300 mg 02/26/20 22:00 03/02/20 06:47 Neurontin - PO 300 mg TID HUGO Administration Heparin Sodium (Porcine) 5,000 unit 02/26/20 22:00 03/02/20 12:14 Heparin - SQ 5,000 unit BID HUGO Administration Ertapenem 1 gm/ Sodium 50 mls @ 100 mls/hr 02/27/20 10:00 03/02/20 12:15 Chloride IVPB 100 mls/hr DAILY HUGO Administration Daptomycin 400 mg/ Sodium 50 mls @ 50 mls/hr 02/27/20 13:00 03/01/20 13:01 Chloride IVPB 50 mls/hr DAILY HUGO Administration Protocol Insulin Aspart 1 vial 02/26/20 16:30 03/02/20 12:11 Novolog Vial Sliding Scale - SQ 10 unit ACHS [facility]GO Administration Protocol Insulin Detemir 30 units 02/29/20 10:23 03/01/20 22:03 Levemir Vial SQ 30 units HS HUGO Administration Magnesium Oxide 400 mg 02/27/20 22:00 03/02/20 12:12 Mag-Ox - PO 400 mg BID HUGO Administration Multivitamins/Minerals/Vitamin C 1 tab 02/27/20 10:00 03/02/20 12:17 Tab-A-Vit - PO 1 tab DAILY HUGO Administration Polyethylene Glycol 17 gm 02/27/20 10:00 03/02/20 12:17 Miralax (For Daily Use) - PO 17 gm DAILY HUGO Administration Quetiapine Fumarate 50 mg 02/26/20 22:00 03/01/20 22:02 Seroquel - PO 50 mg HS HUGO Administration Sodium Chloride 75 ml 03/02/20 12:30 Normal Saline - IV ASDIR HUGO Tamsulosin HCl 0.4 mg 02/29/20 08:30 03/02/20 08:42 Flomax - PO 0.4 mg DAILY@0830 HUGO Administration Vital Signs Period Temp Pulse Resp BP Sys/Leahy Pulse Ox Last 24 Hr 97.8 F-100.2 F 74-88 14-18 110-155/61-80 95-100 Constitutional: Yes: Well Nourished, No Distress Eyes: No: Sclera Icterus HENT: No: Nasal Congestion Respiratory: Yes: CTA Bilaterally. No: Accessory Muscle Use, Rales, Wheezes Gastrointestinal: Yes: Normal Bowel Sounds. No: Distention, Hepatomegaly, Palpable Mass, Tenderness Cardiovascular: Yes: Regular Rate and Rhythm JVD: No Heart Sounds: Yes: S1, S2. No: Gallop Murmur: No: Systolic Murmur, Diastolic Murmur Edema: No Integumentary: No: Jaundice Neurological: Yes: Alert. No: Seizure Psychiatric: No: Agitated Assessment/Plan echo 01/2020: normal LVEF, nl RV, nl valve function. CXR: ATX vs infiltrate R base, no effusions/congestion mibi 01/2020 mod sized area of inferolateral scar, no ischemia, EF 45% preop CV eval, PAD: -s/p R. Fem-Pop: tolerated surgery well, hemodynamically stable, however had fevers. concern for wound infection. s/p washout of groin wound, plan for possible amputation -cannot evaluate for cardiac sx's due to his mental capacity -mult RFs for CAD/cardiomyopathy including DM, prior etoh abuse, age -recent echo unremarkable - mibi shows inferolateral scar, no ischemia - continue statin, plavix as medical management for likely underlying CAD -on digoxin for unclear indication, level ok here, continue - patient is at acceptable risk for vascular surgery/amputation, no further card iac testing prior to procedure DM: -per hospitalist HTN: -elevated at times, coreg increased to 12.5 bid HPL: -cont statin
--- NOTE | 2020-03-02 12:59 | PN ---
Physical Exam: SUBJECTIVE: Patient seen and examined at bedside. OBJECTIVE: Vital Signs Period Temp Pulse Resp BP Sys/Leahy Pulse Ox Last 24 Hr 97.8 F-100.2 F 74-88 14-18 110-155/61-80 95-100 GENERAL: The patient is awake, smiling, shakes hands, speaking but words are nonsensical. Thin, frail, cachectic. LUNGS: Breath sounds equal, clear to auscultation bilaterally, no wheezes, no crackles, no accessory muscle use. HEART: Regular rate and rhythm, S1, S2 ABDOMEN: Soft, nontender, nondistended; wound vac right groin GI/: liang in place Laboratory Results - last 24 hr 03/01/20 03/01/20 03/02/20 16:20 21:11 06:43 WBC RBC Hgb Hct MCV MCH MCHC RDW Plt Count MPV Absolute Neuts (auto) Neutrophils % Lymphocytes % Monocytes % Eosinophils % Basophils % Nucleated RBC % Sodium Potassium Chloride Carbon Dioxide Anion Gap BUN Creatinine Est GFR (CKD-EPI)AfAm Est GFR (CKD-EPI)NonAf POC Glucometer 216 211 135 Random Glucose Calcium Magnesium Total Bilirubin AST ALT Alkaline Phosphatase Total Protein Albumin 03/02/20 03/02/20 10:00 10:00 WBC 7.9 RBC 3.14 L Hgb 8.5 L Hct 26.4 L MCV 83.9 MCH 27.0 MCHC 32.1 RDW 15.6 Plt Count 387 MPV 7.3 L Absolute Neuts (auto) 6.0 Neutrophils % 75.8 Lymphocytes % 12.8 Monocytes % 6.8 Eosinophils % 4.2 Basophils % 0.4 Nucleated RBC % 0 Sodium 142 Potassium 4.5 Chloride 110 H Carbon Dioxide 28 Anion Gap 4 L BUN 26.8 H Creatinine 1.2 Est GFR (CKD-EPI)AfAm 74.66 Est GFR (CKD-EPI)NonAf 64.42 POC Glucometer Random Glucose 191 H Calcium 8.4 L Magnesium 2.1 Total Bilirubin 0.4 AST 28 ALT 46 Alkaline Phosphatase 98 Total Protein 6.4 Albumin 1.5 L Active Medications Generic Name Dose Route Start Last Admin Trade Name Freq PRN Reason Stop Dose Admin Acetaminophen 650 mg 02/26/20 16:22 03/01/20 06:40 Tylenol - PO 650 mg Q4H PRN Administration FEVER Amino Acids 30 ml 02/29/20 17:30 03/02/20 08:42 Prosource No Carb Liquid Pkt PO 30 ml BID@0800,1730 HUGO Administration Artificial Tears 1 drop 02/26/20 16:22 Artificial Tears OU Q6H PRN DRY EYES Aspirin 81 mg 02/27/20 10:00 03/02/20 12:14 Asa - PO 81 mg DAILY HUGO Administration Atorvastatin Calcium 20 mg 02/26/20 22:00 03/01/20 22:03 Lipitor - PO 20 mg HS HUGO Administration Carvedilol 12.5 mg 02/29/20 10:48 03/02/20 12:14 Coreg - PO 12.5 mg BID HUGO Administration Digoxin 0.125 mg 02/27/20 10:00 03/02/20 12:12 Lanoxin - PO 0.125 mg DAILY HUGO Administration Docusate Sodium 100 mg 02/26/20 22:00 03/02/20 12:12 Colace - PO 100 mg BID HUGO Administration Famotidine 20 mg 02/26/20 22:00 03/02/20 12:12 Pepcid - PO 20 mg BID HUGO Administration Gabapentin 300 mg 02/26/20 22:00 03/02/20 06:47 Neurontin - PO 300 mg TID HUGO Administration Heparin Sodium (Porcine) 5,000 unit 02/26/20 22:00 03/02/20 12:14 Heparin - SQ 5,000 unit BID HUGO Administration Ertapenem 1 gm/ Sodium 50 mls @ 100 mls/hr 02/27/20 10:00 03/02/20 12:15 Chloride IVPB 100 mls/hr DAILY HUGO Administration Daptomycin 400 mg/ Sodium 50 mls @ 50 mls/hr 02/27/20 13:00 03/01/20 13:01 Chloride IVPB 50 mls/hr DAILY HUGO Administration Protocol Insulin Aspart 1 vial 02/26/20 16:30 03/02/20 12:11 Novolog Vial Sliding Scale - SQ 10 unit ACHS HUGO Administration Protocol Insulin Detemir 30 units 02/29/20 10:23 03/01/20 22:03 Levemir Vial SQ 30 units HS HUGO Administration Magnesium Oxide 400 mg 02/27/20 22:00 03/02/20 12:12 Mag-Ox - PO 400 mg BID HUGO Administration Multivitamins/Minerals/Vitamin C 1 tab 02/27/20 10:00 03/02/20 12:17 Tab-A-Vit - PO 1 tab DAILY HUGO Administration Polyethylene Glycol 17 gm 02/27/20 10:00 03/02/20 12:17 Miralax (For Daily Use) - PO 17 gm DAILY HUGO Administration Quetiapine Fumarate 50 mg 02/26/20 22:00 03/01/20 22:02 Seroquel - PO 50 mg HS HUGO Administration Sodium Chloride 75 ml 03/02/20 12:30 Normal Saline - IV ASDIR HUGO Tamsulosin HCl 0.4 mg 02/29/20 08:30 03/02/20 08:42 Flomax - PO 0.4 mg DAILY@0830 HUGO Administration ASSESSMENT/PLAN: 64 year-old male with a PMH significant for HTN, HLD, Type II IDDM, schizophrenia/dementia, h/o ETOH abuse, peripheral vascular disease s/p recent right great toe amputation at OSH. Admitted for gangrene and infection of the right foot. Had fem-pop bypass on 02/18/20 with PTFE. Post-op course complicated by groin abscess at surgical site. Infected surgical wound --03/02 CT: air and fluid collection, possible abscess, in region of anastamosis --plan is to OR tomorrow for washout and possible removal of graft --wound vac in place --Tm 100.2, no leukocytosis --culture growing multi-organisms; crp trending down --continue dapto (day #5), ertapenem (day #5) Peripheral vascular disease Gangrene right foot --podiatry following, deferring TMA until vascular issues stabilize Anemia of chronic disease --transfused 1U PRBC on 02/24 --h/h stable, continue to monitor daily Hypertension --has been labile --continue carvedilol and digoxin Hyperlipidemia --continue Lipitor Type II IDDM --continue Levemir 30U qhs --Novolog sliding scale coverage Heart disease, NOS --seen and evaluated by cardiology, unclear why patient on cardiac meds but continue ASA, statin, beta mis, digoxin BPH --continue tamsulosin Severe protein calorie malnutrition --thin, frail, cachectic, BMI 20 --PO intake inconsistent per nutrition --Glucerna BID, prosource BID, add zinc FEN Fluids: PO intake adequate Electrolytes: replete as indicated Nutrition: diabetic, low sodium DVT prophylaxis: subq heparin Dispo: continues to require inpatient care. Full code. Visit type - Emergency Visit Emergency Visit: Yes ED Registration Date: 02/03/20 Care time: The patient presented to the Emergency Department on the above date and was hospitalized for further evaluation of their emergent condition. - New Patient This patient is new to me today: No - Critical Care Critical Care patient: No
[2020-03-02] MEDS: DAPTOMYCIN 400 MG in SODIUM CHLORIDE 50 ML IVPB SCH (13:07)
[2020-03-02] MEDS: SODIUM CHLORIDE 1,000 ML IV SCH (13:20)
[2020-03-02] MEDS: INSULIN (LEVEMIR) 100 UNITS/ML UNITS SQ SCH (23:45)
[2020-03-02] MEDS: QUEtiapine FUMARATE 25 MG TABLET PO SCH (23:46)
[2020-03-02] MEDS: ATORVASTATIN CA 20 MG TABLET (FP) PO SCH (23:46)
[2020-03-03] MEDS: SODIUM CHLORIDE 1,000 ML IV SCH ×2 (04:14→13:42)
[2020-03-03] MEDS ORDERED: PT OWN MED DRAWER 7, Y5N ONE ×2 (06:39→13:25)
[2020-03-03] MEDS: GABAPENTIN 300 MG CAPSULE PO SCH ×3 (06:55→21:47)
[2020-03-03] MEDS: INSULIN SLIDING SCALE (NOVOLOG) 1 VIAL SQ SCH ×4 (06:58→21:45)
[2020-03-03] MEDS ORDERED: VANCOMYCIN 1,000 MG VIAL (RESTRICTED TO ID ONLY) ONE (07:24)
[2020-03-03] MEDS ORDERED: ROCURONIUM BROMIDE 50 MG/5 ML SYRINGE ONE (07:58)
[2020-03-03] MEDS ORDERED: MIDAZOLAM HCL 2 MG/2 ML SINGLE DOSE VIAL ONE (07:58)
[2020-03-03 08:10] LABS: BASO % 0.4 % (0-2.0); EOS % 5.6 % (0-4.5); HEMATOCRIT 22.7 % (35.4-49); HEMOGLOBIN 7.6 GM/dL (11.7-16.9); MCH 28.2 pg (25.7-33.7); MCHC 33.5 g/dl (32.0-35.9); MEAN CELL VOLUME 84.2 fl (80-96); MEAN PLT VOLUME 7.5 fl (7.5-11.1); MONO % 6.2 % (3.8-10.2); NEUT % 73.8 % (42.8-82.8); PLATELET COUNT 337 K/MM3 (134-434); RDW 15.4 % (11.9-15.9); WHITE BLOOD COUNT 7.5 K/mm3 (4.0-10.0)
[2020-03-03 08:39] LABS: ALBUMIN 1.4 g/dl (3.4-5.0); BILIRUBIN,TOTAL 0.2 mg/dL (0.2-1); BLOOD UREA NITROGEN 21.5 mg/dL (7-18); CREATININE 1.1 mg/dL (0.55-1.3); MAGNESIUM 1.8 mg/dL (1.8-2.4); POTASSIUM 4.1 mmol/L (3.5-5.1); TOT PROT 5.9 g/dl (6.4-8.2)
[2020-03-03] MEDS ORDERED: SODIUM CHLORIDE 1,000 ML IV SCH (09:15)
[2020-03-03] MEDS: POLYETHYLENE GLYCOL 3350 119 GM BTL PO SCH (10:00)
[2020-03-03] MEDS: DIGOXIN 0.125 MG TABLET (FP) PO SCH (10:00)
[2020-03-03] MEDS: TAMSULOSIN HCL 0.4 MG CAP PO SCH (10:00)
[2020-03-03] MEDS: DOCUSATE SODIUM 100 MG CAPSULE (FP) PO SCH ×2 (10:00→21:46)
[2020-03-03] MEDS ORDERED: ZINC SULFATE 220 MG CAPSULE (FP) PO SCH (10:00)
[2020-03-03] MEDS: MULTIVITAMINS (DAILY MVI) TABLET (FP) PO SCH (10:00)
[2020-03-03] MEDS: AMINO ACIDS/PROTEIN HYDROLYS 30 ML LIQUID.PKT PO SCH ×2 (10:00→17:23)
[2020-03-03] MEDS: FAMOTIDINE 20 MG TABLET PO SCH ×2 (10:00→21:47)
[2020-03-03] MEDS: CARVEDILOL 12.5 MG TABLET (FP) PO SCH ×2 (10:03→21:47)
[2020-03-03] MEDS: MAGNESIUM OXIDE 400 MG TABLET (FP) PO SCH ×2 (10:05→21:47)
--- NOTE | 2020-03-03 10:15 | OP ---
Operative Note - Note: Operative Date: 03/03/20 Pre-Operative Diagnosis: Infected PTFE graft Operation: Right groin removal of infected graft (fem portion) / VAC application 03/03 Post-Operative Diagnosis: Same as Pre-op Surgeon: Thien Pineda Highballer: Jeremiah Mosquera Anesthesiologist/WELFARE PROJECT MANAGER: Lionel Gore Anesthesia: General Estimated Blood Loss (mls): 30 Fluid Volume Replaced (mls): 600 Operative Report Dictated: Yes
--- NOTE | 2020-03-03 10:16 | SURG ---
Surgery Mental Health Nurse Practitioner Note Mental Health Nurse Practitioner: Jeremiah Mosquera PA-C Date of Service: 03/03/20 Diagnosis: Infected right groin fem-pop (above knee) bypass PTFE graft Procedure: Right groin removal of infected graft (fem portion) / VAC application 03/03 I was present for the entirety of the operative procedure. For further detail, please refer to operative report.
[2020-03-03] MEDS ORDERED: ARTIFICIAL TEARS (POLYVINYL ALCOHOL) OPTH DROPS OU PRN (10:37)
[2020-03-03] MEDS: ASPIRIN 81 MG CHEWABLE TABLETS PO SCH (10:53)
--- NOTE | 2020-03-03 12:23 | PN ---
Physical Exam: SUBJECTIVE: Patient seen and examined at bedside. Just returned to floor from OR/PACU. Unit of PRBCs infusing. OBJECTIVE: Vital Signs Period Temp Pulse Resp BP Sys/Leahy Pulse Ox Last 24 Hr 98.6 F-99.4 F 69-91 14-18 105-150/59-83 84-110 GENERAL: Sleeping but easily arousable. LUNGS: Breath sounds equal, clear to auscultation bilaterally, no wheezes, no crackles, no accessory muscle use. HEART: Regular rate and rhythm, S1, S2 ABDOMEN: Soft, nontender, nondistended EXTREMITIES: 2+ pulses, warm, well-perfused, no edema. NEUROLOGICAL: Cranial nerves II through XII grossly intact. Normal speech, gait not observed. PSYCH: Normal mood, normal affect. SKIN: Wound vac right groin; surgical agnes right thigh, edges well approximated, no drainage; right foot sterile dressing c/d/i; no liang Laboratory Results - last 24 hr 03/02/20 03/02/20 03/02/20 12:00 16:13 22:05 WBC RBC Hgb Hct MCV MCH MCHC RDW Plt Count MPV Absolute Neuts (auto) Neutrophils % Lymphocytes % Monocytes % Eosinophils % Basophils % Nucleated RBC % Sodium Potassium Chloride Carbon Dioxide Anion Gap BUN Creatinine Est GFR (CKD-EPI)AfAm Est GFR (CKD-EPI)NonAf POC Glucometer 230 188 227 Random Glucose Calcium Magnesium Total Bilirubin AST ALT Alkaline Phosphatase Total Protein Albumin Blood Type Antibody Screen Crossmatch 03/03/20 03/03/20 03/03/20 06:36 07:31 07:31 WBC 7.5 RBC 2.70 L Hgb 7.6 L Hct 22.7 L MCV 84.2 MCH 28.2 MCHC 33.5 RDW 15.4 Plt Count 337 MPV 7.5 Absolute Neuts (auto) 5.6 Neutrophils % 73.8 Lymphocytes % 14.0 Monocytes % 6.2 Eosinophils % 5.6 H Basophils % 0.4 Nucleated RBC % 0 Sodium 139 Potassium 4.1 Chloride 110 H Carbon Dioxide 27 Anion Gap 3 L BUN 21.5 H Creatinine 1.1 Est GFR (CKD-EPI)AfAm 82.95 Est GFR (CKD-EPI)NonAf 71.57 POC Glucometer 260 Random Glucose 251 H Calcium 8.0 L Magnesium 1.8 Total Bilirubin 0.2 AST 22 ALT 37 Alkaline Phosphatase 128 H Total Protein 5.9 L Albumin 1.4 L Blood Type Antibody Screen Crossmatch 03/03/20 09:13 WBC RBC Hgb Hct MCV MCH MCHC RDW Plt Count MPV Absolute Neuts (auto) Neutrophils % Lymphocytes % Monocytes % Eosinophils % Basophils % Nucleated RBC % Sodium Potassium Chloride Carbon Dioxide Anion Gap BUN Creatinine Est GFR (CKD-EPI)AfAm Est GFR (CKD-EPI)NonAf POC Glucometer Random Glucose Calcium Magnesium Total Bilirubin AST ALT Alkaline Phosphatase Total Protein Albumin Blood Type O POSITIVE Antibody Screen Negative Crossmatch See Detail Active Medications Generic Name Dose Route Start Last Admin Trade Name Freq PRN Reason Stop Dose Admin Acetaminophen 650 mg 03/03/20 10:37 Tylenol - PO Q4H PRN FEVER Amino Acids 30 ml 03/03/20 17:30 Prosource No Carb Liquid Pkt PO BID@0800,1730 [facility] Artificial Tears 1 drop 03/03/20 10:37 Artificial Tears OU Q6H PRN DRY EYES Aspirin 81 mg 03/04/20 10:00 Asa - PO DAILY [facility] Atorvastatin Calcium 20 mg 03/03/20 22:00 Lipitor - PO HS [facility] Carvedilol 12.5 mg 03/03/20 22:00 Coreg - PO BID [facility] Digoxin 0.125 mg 03/04/20 10:00 Lanoxin - PO DAILY [facility] Docusate Sodium 100 mg 03/03/20 22:00 Colace - PO BID [facility] Famotidine 20 mg 03/03/20 22:00 Pepcid - PO BID [facility] Gabapentin 300 mg 03/03/20 14:00 Neurontin - PO TID [facility] Ertapenem 1 gm/ Sodium 50 mls @ 100 mls/hr 03/04/20 10:00 Chloride IVPB DAILY [facility] Sodium Chloride 1,000 mls @ 75 mls/hr 03/03/20 10:37 Normal Saline - IV ASDIR [facility] Daptomycin 400 mg/ Sodium 50 mls @ 50 mls/hr 03/04/20 10:00 Chloride IVPB DAILY [facility] Protocol Insulin Aspart 1 vial 03/03/20 11:00 Novolog Vial Sliding Scale - SQ ACHS [facility] Protocol Insulin Detemir 30 units 03/03/20 22:00 Levemir Vial SQ HS [facility] Magnesium Oxide 400 mg 03/03/20 22:00 Mag-Ox - PO BID [facility] Multivitamins/Minerals/Vitamin C 1 tab 03/04/20 10:00 Tab-A-Vit - PO DAILY [facility] Polyethylene Glycol 17 gm 03/04/20 10:00 Miralax (For Daily Use) - PO DAILY [facility] Quetiapine Fumarate 50 mg 03/03/20 22:00 Seroquel - PO HS [facility] Tamsulosin HCl 0.4 mg 03/04/20 08:30 Flomax - PO DAILY@0830 [facility] Zinc Sulfate 220 mg 03/04/20 10:00 Orazinc - PO DAILY [facility] ASSESSMENT/PLAN: 64 year-old male with a PMH significant for HTN, HLD, Type II IDDM, schizophrenia/dementia, h/o ETOH abuse, peripheral vascular disease s/p recent right great toe amputation at OSH. Admitted for gangrene and infection of the right foot. Had fem-pop bypass on 02/18/20 with PTFE. Post-op course complicated by groin abscess at surgical site. Now s/p partial removal of PTFE. Infected surgical wound --s/p removal of fem portion of infected graft and VAC application today --continue dapto (day #6), ertapenem (day #6) --surgical wound culture pending Peripheral vascular disease Gangrene right foot --discussed with surgery, considering AKA --podiatry also following Anemia of chronic disease --Hgb 7.6 today, transfused 1U PRBC --transfused 1U PRBC on 02/24 --daily h/h Hypertension --continue carvedilol Hyperlipidemia --continue Lipitor Type II IDDM --continue Levemir 30U qhs --Novolog sliding scale coverage Heart disease, NOS --seen and evaluated by cardiology, unclear why patient on cardiac meds but continue ASA, statin, beta mis, digoxin BPH --continue tamsulosin Severe protein calorie malnutrition --thin, frail, cachectic, BMI 20 --PO intake inconsistent per nutrition --Glucerna BID, prosource BID, zinc FEN Fluids: NS@75mL/hr Electrolytes: replete as indicated Nutrition: diabetic, low sodium DVT prophylaxis: subq heparin Dispo: continues to require inpatient care. Full code. Visit type - Emergency Visit Emergency Visit: Yes ED Registration Date: 02/03/20 Care time: The patient presented to the Emergency Department on the above date and was hospitalized for further evaluation of their emergent condition. - New Patient This patient is new to me today: No - Critical Care Critical Care patient: No
[2020-03-03] MEDS: DAPTOMYCIN 400 MG in SODIUM CHLORIDE 50 ML IVPB SCH ×2 (13:04→14:30)
[2020-03-03] MEDS: ERTAPENEM SODIUM 1 GM in SODIUM CHLORIDE 50 ML IVPB SCH ×3 (13:04→13:41)
--- NOTE | 2020-03-03 15:48 | PN ---
Progress Note (short form) - Note Progress Note: s: confused Current Medications Generic Name Dose Route Start Last Admin Trade Name Freq PRN Reason Stop Dose Admin Acetaminophen 650 mg 03/03/20 10:37 Tylenol - PO Q4H PRN FEVER Amino Acids 30 ml 03/03/20 17:30 Prosource No Carb Liquid Pkt PO BID@0800,1730 [facility] Artificial Tears 1 drop 03/03/20 10:37 Artificial Tears OU Q6H PRN DRY EYES Aspirin 81 mg 03/04/20 10:00 Asa - PO DAILY [facility] Atorvastatin Calcium 20 mg 03/03/20 22:00 Lipitor - PO HS [facility] Carvedilol 12.5 mg 03/03/20 22:00 Coreg - PO BID [facility] Digoxin 0.125 mg 03/04/20 10:00 Lanoxin - PO DAILY [facility] Docusate Sodium 100 mg 03/03/20 22:00 Colace - PO BID [facility] Famotidine 20 mg 03/03/20 22:00 Pepcid - PO BID [facility] Gabapentin 300 mg 03/03/20 14:00 03/03/20 13:29 Neurontin - PO 300 mg TID [facility] Administration Ertapenem 1 gm/ Sodium 50 mls @ 100 mls/hr 03/04/20 10:00 Chloride IVPB DAILY [facility] Sodium Chloride 1,000 mls @ 75 mls/hr 03/03/20 10:37 03/03/20 13:42 Normal Saline - IV 75 mls/hr [facility] Administration Daptomycin 400 mg/ Sodium 50 mls @ 50 mls/hr 03/04/20 10:00 Chloride IVPB DAILY [facility] Protocol Insulin Aspart 1 vial 03/03/20 11:00 03/03/20 12:59 Novolog Vial Sliding Scale - SQ 10 units ACHS [facility] Administration Protocol Insulin Detemir 30 units 03/03/20 22:00 Levemir Vial SQ HS [facility] Magnesium Oxide 400 mg 03/03/20 22:00 Mag-Ox - PO BID [facility] Multivitamins/Minerals/Vitamin C 1 tab 03/04/20 10:00 Tab-A-Vit - PO DAILY [facility] Polyethylene Glycol 17 gm 03/04/20 10:00 Miralax (For Daily Use) - PO DAILY [facility] Quetiapine Fumarate 50 mg 03/03/20 22:00 Seroquel - PO HS [facility] Tamsulosin HCl 0.4 mg 03/04/20 08:30 Flomax - PO DAILY@0830 [facility] Zinc Sulfate 220 mg 03/04/20 10:00 Orazinc - PO DAILY [facility] Vital Signs Period Temp Pulse Resp BP Sys/Leahy Pulse Ox Last 24 Hr 98.1 F-99.4 F 69-91 14-18 105-150/59-83 84-110 Constitutional: Yes: Well Nourished, No Distress Eyes: No: Sclera Icterus HENT: No: Nasal Congestion Respiratory: Yes: CTA Bilaterally. No: Accessory Muscle Use, Rales, Wheezes Gastrointestinal: Yes: Normal Bowel Sounds. No: Distention, Hepatomegaly, Palpable Mass, Tenderness Cardiovascular: Yes: Regular Rate and Rhythm JVD: No Heart Sounds: Yes: S1, S2. No: Gallop Murmur: No: Systolic Murmur, Diastolic Murmur Edema: No Integumentary: No: Jaundice Neurological: Yes: Alert. No: Seizure Psychiatric: No: Agitated CBC, BMP 03/03/20 07:31 03/03/20 07:31 Assessment/Plan echo 01/2020: normal LVEF, nl RV, nl valve function. CXR: ATX vs infiltrate R base, no effusions/congestion mibi 01/2020 mod sized area of inferolateral scar, no ischemia, EF 45% preop CV eval, PAD: -s/p R. Fem-Pop: tolerated surgery well, hemodynamically stable but now with fevers and plan for repeat OR for amputation for gangrene of foot -cannot evaluate for cardiac sx's due to his mental capacity -mult RFs for CAD/cardiomyopathy including DM, prior etoh abuse, age -recent echo unremarkable - mibi shows inferolateral scar, no ischemia - continue statin, plavix as medical management for likely underlying CAD -on digoxin for unclear indication, level ok here, continue - patient is at acceptable risk for vascular surgery/amputation, no further cardiac testing prior to procedure DM: -per hospitalist HTN: -continue coreg to 12.5 bid HPL: -cont statin
--- NOTE | 2020-03-03 16:45 | PN ---
Progress Note (short form) - Note Progress Note: s/p washout today with infected graft removal and vac placement Vital Signs Period Temp Pulse Resp BP Sys/Leahy Pulse Ox Last 24 Hr 98.1 F-99.4 F 69-91 14-18 105-150/59-83 84-110 cor-rrr lungs clear abd soft, nt vac in place right groin dressing right foot CBC, BMP 03/03/20 07:31 03/03/20 07:31 Microbiology 03/03/20 09:24 Groin - Right Gram Stain - Final 02/26/20 14:37 Groin - Right Gram Stain - Final 02/26/20 14:37 Groin - Right Wound Culture - Final Klebsiella Pneumoniae - Esbl Vr Ec Faecium Enterococcus Faecalis 02/24/20 18:00 Blood - Peripheral Venous Blood Culture - Final NO GROWTH AFTER 5 DAYS INCUBATION 02/24/20 18:15 Blood - Peripheral Venous Blood Culture - Final NO GROWTH AFTER 5 DAYS INCUBATION 02/24/20 15:30 Groin - Right Gram Stain - Final 02/24/20 15:30 Groin - Right Wound Culture - Final Klebsiella Pneumoniae - Esbl Vr Ec Faecium 02/21/20 15:23 Blood - Peripheral Venous Blood Culture - Final NO GROWTH AFTER 5 DAYS INCUBATION 02/21/20 15:35 Blood - Peripheral Venous Blood Culture - Final NO GROWTH AFTER 5 DAYS INCUBATION 02/24/20 00:30 Urine - Urine - Catheterized Urine Culture - Final NO GROWTH OBTAINED 02/05/20 07:50 Blood - Peripheral Venous Blood Culture - Final NO GROWTH AFTER 5 DAYS INCUBATION 02/05/20 08:08 Blood - Peripheral Venous Blood Culture - Final NO GROWTH AFTER 5 DAYS INCUBATION 02/03/20 13:05 Blood - Peripheral Venous Blood Culture - Final NO GROWTH AFTER 5 DAYS INCUBATION 02/03/20 13:05 Blood - Peripheral Venous Blood Culture - Final NO GROWTH AFTER 5 DAYS INCUBATION 02/03/20 16:20 Toe - Right Hallux Gram Stain - Final 02/03/20 16:20 Toe - Right Hallux Wound Culture - Final Klebsiella Pneumoniae - Esbl Proteus Mirabilis Enterococcus Faecalis a/p infected fem/pop graft- vre and esbl kleb, continue daptomycin and ertapenem, highly resistant organisms noted s/p removal infected graft contact isolation diabetic foot ulcer PVD nonhealing wound of the right foot dementia schizophrenia repeat crp f/u operative cultures Problem List - Problems (1) Fever Code(s): R50.9 - FEVER, UNSPECIFIED (2) Diabetic foot infection Code(s): E11.628 - TYPE 2 DIABETES MELLITUS WITH OTHER SKIN COMPLICATIONS; L08.9 - LOCAL INFECTION OF THE SKIN AND SUBCUTANEOUS TISSUE, UNSP (3) PVD (peripheral vascular disease) Code(s): I73.9 - PERIPHERAL VASCULAR DISEASE, UNSPECIFIED (4) CKD (chronic kidney disease) Code(s): N18.9 - CHRONIC KIDNEY DISEASE, UNSPECIFIED (5) Anemia Code(s): D64.9 - ANEMIA, UNSPECIFIED
[2020-03-03] MEDS: ACETAMINOPHEN 325 MG TABLET (FP) PO PRN (17:24)
[2020-03-03] MEDS: INSULIN (LEVEMIR) 100 UNITS/ML UNITS SQ SCH (21:45)
[2020-03-03] MEDS: QUEtiapine FUMARATE 25 MG TABLET PO SCH (21:46)
[2020-03-03] MEDS: ATORVASTATIN CA 20 MG TABLET (FP) PO SCH (21:46)
--- NOTE | 2020-03-04 05:34 | PN ---
Physical Exam: SUBJECTIVE: Patient seen and examined at bedside. Knows he might need another operation, knows his brother came to see him yesterday. OBJECTIVE: Vital Signs Period Temp Pulse Resp BP Sys/Leahy Pulse Ox Last 24 Hr 98.1 F-99.7 F 69-90 16-18 105-177/59-86 95-110 GENERAL: Awake, speaking LUNGS: Breath sounds equal, clear to auscultation bilaterally HEART: Regular rate and rhythm, S1, S2 ABDOMEN: Soft, nontender, nondistended EXTREMITIES: 2+ pulses, warm, well-perfused, no edema. NEUROLOGICAL: Cranial nerves II through XII grossly intact. Normal speech, gait not observed. PSYCH: Normal mood, normal affect. SKIN: Wound vac right groin dark-brown drainage; surgical agnes right thigh, edges well approximated, no drainage; right foot sterile dressing c/d/i Laboratory Results - last 24 hr 03/03/20 03/03/20 03/03/20 06:36 07:31 07:31 WBC 7.5 RBC 2.70 L Hgb 7.6 L Hct 22.7 L MCV 84.2 MCH 28.2 MCHC 33.5 RDW 15.4 Plt Count 337 MPV 7.5 Absolute Neuts (auto) 5.6 Neutrophils % 73.8 Lymphocytes % 14.0 Monocytes % 6.2 Eosinophils % 5.6 H Basophils % 0.4 Nucleated RBC % 0 Sodium 139 Potassium 4.1 Chloride 110 H Carbon Dioxide 27 Anion Gap 3 L BUN 21.5 H Creatinine 1.1 Est GFR (CKD-EPI)AfAm 82.95 Est GFR (CKD-EPI)NonAf 71.57 POC Glucometer 260 Random Glucose 251 H Calcium 8.0 L Magnesium 1.8 Total Bilirubin 0.2 AST 22 ALT 37 Alkaline Phosphatase 128 H Total Protein 5.9 L Albumin 1.4 L Blood Type Antibody Screen Crossmatch 03/03/20 03/03/20 03/03/20 09:13 12:55 17:18 WBC RBC Hgb Hct MCV MCH MCHC RDW Plt Count MPV Absolute Neuts (auto) Neutrophils % Lymphocytes % Monocytes % Eosinophils % Basophils % Nucleated RBC % Sodium Potassium Chloride Carbon Dioxide Anion Gap BUN Creatinine Est GFR (CKD-EPI)AfAm Est GFR (CKD-EPI)NonAf POC Glucometer 225 249 Random Glucose Calcium Magnesium Total Bilirubin AST ALT Alkaline Phosphatase Total Protein Albumin Blood Type O POSITIVE Antibody Screen Negative Crossmatch See Detail 03/03/20 21:41 WBC RBC Hgb Hct MCV MCH MCHC RDW Plt Count MPV Absolute Neuts (auto) Neutrophils % Lymphocytes % Monocytes % Eosinophils % Basophils % Nucleated RBC % Sodium Potassium Chloride Carbon Dioxide Anion Gap BUN Creatinine Est GFR (CKD-EPI)AfAm Est GFR (CKD-EPI)NonAf POC Glucometer 218 Random Glucose Calcium Magnesium Total Bilirubin AST ALT Alkaline Phosphatase Total Protein Albumin Blood Type Antibody Screen Crossmatch Active Medications Generic Name Dose Route Start Last Admin Trade Name Freq PRN Reason Stop Dose Admin Acetaminophen 650 mg 03/03/20 10:37 03/03/20 17:24 Tylenol - PO 650 mg Q4H PRN Administration FEVER Amino Acids 30 ml 03/03/20 17:30 03/03/20 17:23 Prosource No Carb Liquid Pkt PO 30 ml BID@0800,1730 [facility] Administration Artificial Tears 1 drop 03/03/20 10:37 Artificial Tears OU Q6H PRN DRY EYES Aspirin 81 mg 03/04/20 10:00 Asa - PO DAILY [facility] Atorvastatin Calcium 20 mg 03/03/20 22:00 03/03/20 21:46 Lipitor - PO 20 mg HS [facility] Administration Carvedilol 12.5 mg 03/03/20 22:00 03/03/20 21:47 Coreg - PO 12.5 mg BID [facility] Administration Digoxin 0.125 mg 03/04/20 10:00 Lanoxin - PO DAILY [facility] Docusate Sodium 100 mg 03/03/20 22:00 03/03/20 21:46 Colace - PO 100 mg BID [facility] Administration Famotidine 20 mg 03/03/20 22:00 03/03/20 21:47 Pepcid - PO 20 mg BID [facility] Administration Gabapentin 300 mg 03/03/20 14:00 03/03/20 21:47 Neurontin - PO 300 mg TID [facility] Administration Ertapenem 1 gm/ Sodium 50 mls @ 100 mls/hr 03/04/20 10:00 Chloride IVPB DAILY [facility] Sodium Chloride 1,000 mls @ 75 mls/hr 03/03/20 10:37 03/03/20 13:42 Normal Saline - IV 75 mls/hr ASDIR [facility] Administration Daptomycin 400 mg/ Sodium 50 mls @ 50 mls/hr 03/04/20 10:00 Chloride IVPB DAILY [facility] Protocol Insulin Aspart 1 vial 03/03/20 11:00 03/03/20 21:45 Novolog Vial Sliding Scale - SQ 10 units ACHS [facility] Administration Protocol Insulin Detemir 30 units 03/03/20 22:00 03/03/20 21:45 Levemir Vial SQ 30 units HS [facility] Administration Magnesium Oxide 400 mg 03/03/20 22:00 03/03/20 21:47 Mag-Ox - PO 400 mg BID [facility] Administration Multivitamins/Minerals/Vitamin C 1 tab 03/04/20 10:00 Tab-A-Vit - PO DAILY [facility] Polyethylene Glycol 17 gm 03/04/20 10:00 Miralax (For Daily Use) - PO DAILY [facility] Quetiapine Fumarate 50 mg 03/03/20 22:00 03/03/20 21:46 Seroquel - PO 50 mg HS [facility] Administration Tamsulosin HCl 0.4 mg 03/04/20 08:30 Flomax - PO DAILY@0830 [facility] Zinc Sulfate 220 mg 03/04/20 10:00 Orazinc - PO DAILY [facility] ASSESSMENT/PLAN: 64 year-old male with a PMH significant for HTN, HLD, Type II IDDM, schizophrenia/dementia, h/o ETOH abuse, peripheral vascular disease s/p recent right great toe amputation at OSH. Admitted for gangrene and infection of the right foot. Had fem-pop bypass on 02/18/20 with PTFE. Post-op course complicated by groin abscess at surgical site. Now s/p partial removal of PTFE. Infected surgical wound --s/p removal of fem portion of infected graft and VAC application --continue dapto (day #7), ertapenem (day #7) --surgical wound culture NGTD Peripheral vascular disease Gangrene right foot --discussed with surgery, considering AKA --podiatry also following Anemia of chronic disease --transfused 1U PRBC on 02/24 and 03/04 --daily h/h Hypertension --BP elevated despite higher dose of carvedilol, per cardiology, start valsartan 160mg and consider amlodipine if not controlled Hyperlipidemia --continue Lipitor Type II IDDM --continue Levemir 30U qhs --Novolog sliding scale coverage Heart disease, NOS --continue ASA, statin, beta mis, digoxin BPH --continue tamsulosin Severe protein calorie malnutrition --thin, frail, cachectic, BMI 20 --PO intake inconsistent per nutrition --Glucerna BID, prosource BID, zinc FEN Fluids: NS@75mL/hr Electrolytes: replete as indicated Nutrition: diabetic, low sodium DVT prophylaxis: subq heparin Dispo: continues to require inpatient care. DNR/DNI Visit type - Emergency Visit Emergency Visit: Yes ED Registration Date: 02/03/20 Care time: The patient presented to the Emergency Department on the above date and was hospitalized for further evaluation of their emergent condition. - New Patient This patient is new to me today: No - Critical Care Critical Care patient: No
[2020-03-04] MEDS: GABAPENTIN 300 MG CAPSULE PO SCH ×3 (05:48→21:40)
[2020-03-04] MEDS: INSULIN SLIDING SCALE (NOVOLOG) 1 VIAL SQ SCH ×4 (06:15→21:54)
[2020-03-04] MEDS ORDERED: PT OWN MED DRAWER 7, Y5N ONE (06:21)
[2020-03-04] MEDS: TAMSULOSIN HCL 0.4 MG CAP PO SCH (09:15)
[2020-03-04] MEDS: AMINO ACIDS/PROTEIN HYDROLYS 30 ML LIQUID.PKT PO SCH ×2 (09:15→17:23)
[2020-03-04] MEDS ORDERED: DAPTOMYCIN 400 MG in SODIUM CHLORIDE 50 ML IVPB SCH (10:00)
--- NOTE | 2020-03-04 10:02 | PN ---
Progress Note, Physician Chief Complaint: confused - Current Medication List Current Medications: Active Medications Acetaminophen (Tylenol -) 650 mg PO Q4H PRN PRN Reason: FEVER Last Admin: 03/03/20 17:24 Dose: 650 mg Documented by: Amino Acids (Prosource No Carb Liquid Pkt) 30 ml PO BID@0800,1730 [facility] Last Admin: 03/04/20 09:15 Dose: 30 ml Documented by: Artificial Tears (Artificial Tears) 1 drop OU Q6H PRN PRN Reason: DRY EYES Aspirin (Asa -) 81 mg PO DAILY [facility] Atorvastatin Calcium (Lipitor -) 20 mg PO HS [facility] Last Admin: 03/03/20 21:46 Dose: 20 mg Documented by: Carvedilol (Coreg -) 12.5 mg PO BID [facility] Last Admin: 03/03/20 21:47 Dose: 12.5 mg Documented by: Digoxin (Lanoxin -) 0.125 mg PO DAILY [facility] Docusate Sodium (Colace -) 100 mg PO BID [facility] Last Admin: 03/03/20 21:46 Dose: 100 mg Documented by: Famotidine (Pepcid -) 20 mg PO BID [facility] Last Admin: 03/03/20 21:47 Dose: 20 mg Documented by: Gabapentin (Neurontin -) 300 mg PO TID [facility] Last Admin: 03/04/20 05:48 Dose: 300 mg Documented by: Ertapenem 1 gm/ Sodium (Chloride) 50 mls @ 100 mls/hr IVPB DAILY [facility] Sodium Chloride (Normal Saline -) 1,000 mls @ 75 mls/hr IV ASDIR [facility] Last Admin: 03/03/20 13:42 Dose: 75 mls/hr Documented by: Daptomycin 400 mg/ Sodium (Chloride) 50 mls @ 50 mls/hr IVPB DAILY [facility]; Protocol Insulin Aspart (Novolog Vial Sliding Scale -) 1 vial SQ [facility]; Protocol Last Admin: 03/04/20 06:15 Dose: Not Given Documented by: Insulin Detemir (Levemir Vial) 30 units SQ [facility] Last Admin: 03/03/20 21:45 Dose: 30 units Documented by: Magnesium Oxide (Mag-Ox -) 400 mg PO BID [facility] Last Admin: 03/03/20 21:47 Dose: 400 mg Documented by: Multivitamins/Minerals/Vitamin C (Tab-A-Vit -) 1 tab PO DAILY [facility] Polyethylene Glycol (Miralax (For Daily Use) -) 17 gm PO DAILY [facility] Quetiapine Fumarate (Seroquel -) 50 mg PO HS [facility] Last Admin: 03/03/20 21:46 Dose: 50 mg Documented by: Tamsulosin HCl (Flomax -) 0.4 mg PO DAILY@0830 [facility] Last Admin: 03/04/20 09:15 Dose: 0.4 mg Documented by: Zinc Sulfate (Orazinc -) 220 mg PO DAILY [facility] - Objective Vital Signs: Vital Signs Temperature 98.7 F 03/04/20 06:00 Pulse Rate 81 03/04/20 06:00 Respiratory Rate 18 03/04/20 06:00 Blood Pressure 147/82 03/04/20 06:00 O2 Sat by Pulse Oximetry (%) 98 03/04/20 06:00 Constitutional: Yes: No Distress Cardiovascular: Yes: Regular Rate and Rhythm Respiratory: Yes: CTA Bilaterally (no rales , no wheezing) Edema: No Labs: CBC, BMP 03/03/20 07:31 03/03/20 07:31 INR, PTT INR 1.20 (0.83-1.09) H 02/26/20 09:10 Assessment/Plan Assessment/Plan echo 01/2020: normal LVEF, nl RV, nl valve function. CXR: ATX vs infiltrate R base, no effusions/congestion mibi 01/2020 mod sized area of inferolateral scar, no ischemia, EF 45% Post op CV eval, PAD: -s/p R. Fem-Pop: tolerated surgery well, hemodynamically stable -cannot evaluate for cardiac sx's due to his mental capacity -mult RFs for CAD/cardiomyopathy including DM, prior etoh abuse, age -recent echo unremarkable - mibi shows inferolateral scar, no ischemia - continue statin, aspirin as medical management for likely underlying CAD and his PAD -on digoxin for unclear indication, level ok here x 2, continue - patient is at acceptable risk for vascular surgery/amputations if needed, no further cardiac testing prior to procedure DM: -per hospitalist HTN: -continue coreg to 12.5 bid HPL: -cont statin
[2020-03-04] MEDS: DIGOXIN 0.125 MG TABLET (FP) PO SCH (10:13)
[2020-03-04] MEDS: ZINC SULFATE 220 MG CAPSULE (FP) PO SCH (10:13)
[2020-03-04] MEDS: FAMOTIDINE 20 MG TABLET PO SCH ×2 (10:14→21:38)
[2020-03-04] MEDS: DOCUSATE SODIUM 100 MG CAPSULE (FP) PO SCH ×2 (10:14→21:38)
[2020-03-04] MEDS: ASPIRIN 81 MG CHEWABLE TABLETS PO SCH (10:14)
[2020-03-04] MEDS: MULTIVITAMINS (DAILY MVI) TABLET (FP) PO SCH (10:14)
[2020-03-04] MEDS: POLYETHYLENE GLYCOL 3350 119 GM BTL PO SCH (10:14)
[2020-03-04] MEDS: ERTAPENEM SODIUM 1 GM in SODIUM CHLORIDE 50 ML IVPB SCH (10:15)
[2020-03-04] MEDS: MAGNESIUM OXIDE 400 MG TABLET (FP) PO SCH ×2 (10:15→21:40)
[2020-03-04] MEDS: CARVEDILOL 12.5 MG TABLET (FP) PO SCH ×2 (10:15→21:38)
[2020-03-04] MEDS: DAPTOMYCIN 400 MG in SODIUM CHLORIDE 50 ML IVPB SCH (12:03)
[2020-03-04] MEDS: SODIUM CHLORIDE 1,000 ML IV SCH (12:04)
--- NOTE | 2020-03-04 13:07 | PN ---
Progress Note (short form) - Note Progress Note: Surgery POD #1 right groin excision of infected graft with application of wound vac. Patient seen and examined on AM rounds with no complaints. He denies any CP, SOB, N/V/D, fever or chills. Vital Signs Temp 98.7 F 03/04/20 06:00 Pulse 78 03/04/20 10:13 Resp 18 03/04/20 06:00 BP 147/82 03/04/20 06:00 Pulse Ox 98 03/04/20 06:00 Intake & Output 03/03/20 03/04/20 03/04/20 23:59 11:59 23:59 Intake Total 1525 0 Output Total 675 Balance 850 0 Intake: IV 735 Normal Saline - 1,000 ml 735 @ 75 mls/hr IV ASDIR [facility] Rx#:[id number] IVPB 200 Oral 240 0 Packed Cells 350 Output: Urine 675 Void 675 Other: Voiding Method Incontinent Incontinent # Unmeasured Voids Rizvi 1 Void 2 Bowel Movement No Yes # Bowel Movements 1 PE: A&Ox3, NAD Unlabored resp on RA Right groin, vac in place with good seal, surrounding tissue with no erythema, edema or evidence of collection, thigh soft and supple. distal thigh incision with agnes in situ, c/d/i with no erythema, edema or evidence of collection. LE compartments soft, supple and non-tender. Right LE warm to touch throughout. Right foot dressing c/d/i. Problem List - Problems (1) Gangrene of toe of right foot Assessment/Plan: POD #1 excision of infected graft and vac placement doing well. -Continue DVT prophylaxis -continue wound vac. -IV abx per ID -surgical plan pending- Dr Pineda to speak with patient's family regarding plan for foot -podiatry following Code(s): I96 - GANGRENE, NOT ELSEWHERE CLASSIFIED
--- NOTE | 2020-03-04 15:09 | PN ---
HC Provider Note Provider Note: Anesthesia Post Op Note Pt s/p GA for wound wash out Pt awake alert, w/o compliants VSS no apparent anesthesia complications Irina Spear.
--- NOTE | 2020-03-04 16:40 | PN ---
Progress Note (short form) - Note Progress Note: Podiatry: For now pending vascular evaluation. It seems partial removal of bypass was done, unsure of how this affects foot viability if possible TMA is to be considered Vasc is going to discuss with family how to proceed; from prior discussion BKA vs AKA was being considered as well Will f/u with vascular for status of graft function and if TMA would be possible at this point Will follow
[2020-03-04] MEDS ORDERED: INSULIN (NOVOLOG) ASPART 100 UNITS/ML 10ML VIAL ONE (21:10)
[2020-03-04] MEDS: QUEtiapine FUMARATE 25 MG TABLET PO SCH (21:38)
[2020-03-04] MEDS: ATORVASTATIN CA 20 MG TABLET (FP) PO SCH (21:39)
[2020-03-04] MEDS: INSULIN (LEVEMIR) 100 UNITS/ML UNITS SQ SCH (21:39)
[2020-03-05] MEDS: INSULIN SLIDING SCALE (NOVOLOG) 1 VIAL SQ SCH ×4 (06:19→22:13)
[2020-03-05] MEDS: GABAPENTIN 300 MG CAPSULE PO SCH ×3 (06:19→22:11)
[2020-03-05] MEDS ORDERED: PT OWN MED DRAWER 7, Y5N ONE ×2 (06:55→09:11)
--- NOTE | 2020-03-05 08:15 | PN ---
Progress Note, Physician Chief Complaint: PAD History of Present Illness: denies cp, sob, palp, syncope - Current Medication List Current Medications: Active Medications Acetaminophen (Tylenol -) 650 mg PO Q4H PRN PRN Reason: FEVER Last Admin: 03/03/20 17:24 Dose: 650 mg Documented by: Amino Acids (Prosource No Carb Liquid Pkt) 30 ml PO BID@0800,1730 [facility] Last Admin: 03/04/20 17:23 Dose: 30 ml Documented by: Artificial Tears (Artificial Tears) 1 drop OU Q6H PRN PRN Reason: DRY EYES Aspirin (Asa -) 81 mg PO DAILY [facility] Last Admin: 03/04/20 10:14 Dose: 81 mg Documented by: Atorvastatin Calcium (Lipitor -) 20 mg PO HS [facility] Last Admin: 03/04/20 21:39 Dose: 20 mg Documented by: Carvedilol (Coreg -) 12.5 mg PO BID [facility] Last Admin: 03/04/20 21:38 Dose: 12.5 mg Documented by: Digoxin (Lanoxin -) 0.125 mg PO DAILY [facility] Last Admin: 03/04/20 10:13 Dose: 0.125 mg Documented by: Docusate Sodium (Colace -) 100 mg PO BID [facility] Last Admin: 03/04/20 21:38 Dose: 100 mg Documented by: Famotidine (Pepcid -) 20 mg PO BID [facility] Last Admin: 03/04/20 21:38 Dose: 20 mg Documented by: Gabapentin (Neurontin -) 300 mg PO TID [facility] Last Admin: 03/05/20 06:19 Dose: 300 mg Documented by: Ertapenem 1 gm/ Sodium (Chloride) 50 mls @ 100 mls/hr IVPB DAILY [facility] Last Admin: 03/04/20 10:15 Dose: 100 mls/hr Documented by: Sodium Chloride (Normal Saline -) 1,000 mls @ 75 mls/hr IV ASDIR [facility] Last Admin: 03/04/20 12:04 Dose: 75 mls/hr Documented by: Daptomycin 400 mg/ Sodium (Chloride) 50 mls @ 50 mls/hr IVPB DAILY [facility]; Protocol Last Admin: 03/04/20 12:03 Dose: 50 mls/hr Documented by: Insulin Aspart (Novolog Vial Sliding Scale -) 1 vial SQ ACHS [facility]; Protocol Last Admin: 03/05/20 06:19 Dose: 10 units Documented by: Insulin Detemir (Levemir Vial) 30 units SQ HS [facility] Last Admin: 03/04/20 21:39 Dose: 30 units Documented by: Magnesium Oxide (Mag-Ox -) 400 mg PO BID [facility] Last Admin: 03/04/20 21:40 Dose: 400 mg Documented by: Multivitamins/Minerals/Vitamin C (Tab-A-Vit -) 1 tab PO DAILY [facility] Last Admin: 03/04/20 10:14 Dose: 1 tab Documented by: Polyethylene Glycol (Miralax (For Daily Use) -) 17 gm PO DAILY [facility] Last Admin: 03/04/20 10:14 Dose: 17 gm Documented by: Quetiapine Fumarate (Seroquel -) 50 mg PO HS [facility] Last Admin: 03/04/20 21:38 Dose: 50 mg Documented by: Tamsulosin HCl (Flomax -) 0.4 mg PO DAILY@0830 [facility] Last Admin: 03/04/20 09:15 Dose: 0.4 mg Documented by: Zinc Sulfate (Orazinc -) 220 mg PO DAILY [facility] Last Admin: 03/04/20 10:13 Dose: 220 mg Documented by: - Objective Vital Signs: Vital Signs Temperature 98.7 F 03/05/20 02:00 Pulse Rate 75 03/05/20 05:44 Respiratory Rate 18 03/05/20 05:44 Blood Pressure 189/93 H 03/05/20 05:44 O2 Sat by Pulse Oximetry (%) 98 03/05/20 05:44 Constitutional: Yes: Well Nourished, No Distress, Calm Cardiovascular: Yes: Regular Rate and Rhythm. No: Gallop, Murmur Respiratory: Yes: Regular. No: Rales Extremities: No: Cold Edema: No (clean/dry wrap R) Neurological: Yes: Alert. No: Seizure Psychiatric: No: Agitated Labs: CBC, BMP 03/03/20 07:31 03/03/20 07:31 INR, PTT INR 1.20 (0.83-1.09) H 02/26/20 09:10 Assessment/Plan echo 01/2020: normal LVEF, nl RV, nl valve function. CXR: ATX vs infiltrate R base, no effusions/congestion mibi 01/2020 mod sized area of inferolateral scar, no ischemia, EF 45% Post op CV eval, PAD: -s/p R. Fem-Pop: tolerated surgery well, hemodynamically stable CAD: - no angina sx's here - preop mibi shows inferolateral scar, no ischemia. mildly reduced EF. - continue statin, aspirin - on digoxin for unclear indication, levels ok here, continue--outpt f/u with prior treating physician DM: -per hospitalist HTN: -bp persistently elevated since 03/03 -coreg increased to 12.5 bid, remains high -start valsartan 160 (PAD, CAD, DM indications)--watch creat/K -consider amlodipine next if not controlled HPL: -cont statin
--- NOTE | 2020-03-05 09:26 | PN ---
Progress Note, Physician Chief Complaint: pt appears confused, no acute distress, - Current Medication List Current Medications: Active Medications Acetaminophen (Tylenol -) 650 mg PO Q4H PRN PRN Reason: FEVER Last Admin: 03/03/20 17:24 Dose: 650 mg Documented by: Amino Acids (Prosource No Carb Liquid Pkt) 30 ml PO BID@0800,1730 [facility] Last Admin: 03/04/20 17:23 Dose: 30 ml Documented by: Artificial Tears (Artificial Tears) 1 drop OU Q6H PRN PRN Reason: DRY EYES Aspirin (Asa -) 81 mg PO DAILY [facility] Last Admin: 03/04/20 10:14 Dose: 81 mg Documented by: Atorvastatin Calcium (Lipitor -) 20 mg PO HS [facility] Last Admin: 03/04/20 21:39 Dose: 20 mg Documented by: Carvedilol (Coreg -) 12.5 mg PO BID [facility] Last Admin: 03/04/20 21:38 Dose: 12.5 mg Documented by: Digoxin (Lanoxin -) 0.125 mg PO DAILY [facility] Last Admin: 03/04/20 10:13 Dose: 0.125 mg Documented by: Docusate Sodium (Colace -) 100 mg PO BID [facility] Last Admin: 03/04/20 21:38 Dose: 100 mg Documented by: Famotidine (Pepcid -) 20 mg PO BID [facility] Last Admin: 03/04/20 21:38 Dose: 20 mg Documented by: Gabapentin (Neurontin -) 300 mg PO TID [facility] Last Admin: 03/05/20 06:19 Dose: 300 mg Documented by: Ertapenem 1 gm/ Sodium (Chloride) 50 mls @ 100 mls/hr IVPB DAILY [facility] Last Admin: 03/04/20 10:15 Dose: 100 mls/hr Documented by: Sodium Chloride (Normal Saline -) 1,000 mls @ 75 mls/hr IV ASDIR [facility] Last Admin: 03/04/20 12:04 Dose: 75 mls/hr Documented by: Daptomycin 400 mg/ Sodium (Chloride) 50 mls @ 50 mls/hr IVPB DAILY [facility]; Protocol Last Admin: 03/04/20 12:03 Dose: 50 mls/hr Documented by: Insulin Aspart (Novolog Vial Sliding Scale -) 1 vial SQ ACHS [facility]; Protocol Last Admin: 03/05/20 06:19 Dose: 10 units Documented by: Insulin Detemir (Levemir Vial) 30 units SQ [facility] Last Admin: 03/04/20 21:39 Dose: 30 units Documented by: Magnesium Oxide (Mag-Ox -) 400 mg PO BID [facility] Last Admin: 03/04/20 21:40 Dose: 400 mg Documented by: Multivitamins/Minerals/Vitamin C (Tab-A-Vit -) 1 tab PO DAILY [facility] Last Admin: 03/04/20 10:14 Dose: 1 tab Documented by: Polyethylene Glycol (Miralax (For Daily Use) -) 17 gm PO DAILY [facility] Last Admin: 03/04/20 10:14 Dose: 17 gm Documented by: Quetiapine Fumarate (Seroquel -) 50 mg PO [facility] Last Admin: 03/04/20 21:38 Dose: 50 mg Documented by: Tamsulosin HCl (Flomax -) 0.4 mg PO DAILY@0830 [facility] Last Admin: 03/04/20 09:15 Dose: 0.4 mg Documented by: Valsartan (Diovan -) 160 mg PO DAILY [facility] Zinc Sulfate (Orazinc -) 220 mg PO DAILY [facility] Last Admin: 03/04/20 10:13 Dose: 220 mg Documented by: - Objective Vital Signs: Vital Signs Temperature 98.7 F 03/05/20 02:00 Pulse Rate 75 03/05/20 05:44 Respiratory Rate 18 03/05/20 05:44 Blood Pressure 189/93 H 03/05/20 05:44 O2 Sat by Pulse Oximetry (%) 98 03/05/20 05:44 Constitutional: Yes: Well Nourished, No Distress Eyes: Yes: Conjunctiva Clear, EOM Intact HENT: Yes: Atraumatic, Normocephalic Neck: Yes: Supple, Trachea Midline Cardiovascular: Yes: Regular Rate and Rhythm Respiratory: Yes: Regular, CTA Bilaterally Gastrointestinal: Yes: Normal Bowel Sounds, Soft Extremities: Yes: Other (R foot dsd,woud vac R groin in place scant bloody secrestion,) Edema: No Neurological: Yes: Confusion, Other ...Motor Strength: WNL Labs: CBC, BMP 03/03/20 07:31 03/03/20 07:31 INR, PTT INR 1.20 (0.83-1.09) H 02/26/20 09:10 Impression/Plan Impression/Plan: 64 year-old male with a PMH significant for HTN, HLD, Type II IDDM, schizophrenia/dementia, h/o ETOH abuse, peripheral vascular disease s/p recent right great toe amputation at OSH. Admitted for gangrene and infection of the right foot. Had fem-pop bypass on 02/18/20 with PTFE. Post-op course complicated by groin abscess at surgical site. Now s/p partial removal of PTFE. Infected surgical wound --s/p removal of fem portion of infected graft and VAC application --continue dapto, ertapenem Peripheral vascular disease Gangrene right foot --discussed with surgery, considering AKA, TBD --podiatry also following Anemia of chronic disease s/p transfused 1U PRBC on 02/24 and 03/04 --daily h/h, will check todays h/h Hypertension --BP elevated despite higher dose of carvedilol, increase valsartan and monitor, Hyperlipidemia --continue Lipitor Type II IDDM --continue Levemir 30U qhs --Novolog sliding scale covera Severe protein calorie malnutrition --Glucerna BID, prosource BID, zinc FEN Fluids: dc ivf, and encourage po fluids, Electrolytes: replete as indicated Nutrition: diabetic, low sodium DVT prophylaxis: subq heparin Dispo: continues to require inpatient care. DNR/DNI Visit type - Emergency Visit Emergency Visit: No - New Patient This patient is new to me today: Yes Date on this admission: 03/05/20 - Critical Care Critical Care patient: No - Discharge Referral Referred to [facility] No
[2020-03-05] MEDS: AMINO ACIDS/PROTEIN HYDROLYS 30 ML LIQUID.PKT PO SCH ×2 (09:30→17:21)
[2020-03-05] MEDS: TAMSULOSIN HCL 0.4 MG CAP PO SCH (09:30)
[2020-03-05] MEDS: ERTAPENEM SODIUM 1 GM in SODIUM CHLORIDE 50 ML IVPB SCH (09:54)
[2020-03-05] MEDS ORDERED: VALSARTAN 160 MG TABLET PO SCH (10:00)
[2020-03-05] MEDS: ZINC SULFATE 220 MG CAPSULE (FP) PO SCH (10:02)
[2020-03-05] MEDS: ASPIRIN 81 MG CHEWABLE TABLETS PO SCH (10:02)
[2020-03-05] MEDS: CARVEDILOL 12.5 MG TABLET (FP) PO SCH ×2 (10:02→22:07)
[2020-03-05] MEDS: FAMOTIDINE 20 MG TABLET PO SCH ×2 (10:02→22:09)
[2020-03-05] MEDS: DIGOXIN 0.125 MG TABLET (FP) PO SCH (10:02)
[2020-03-05] MEDS: DOCUSATE SODIUM 100 MG CAPSULE (FP) PO SCH ×2 (10:03→22:07)
[2020-03-05] MEDS: MAGNESIUM OXIDE 400 MG TABLET (FP) PO SCH ×2 (10:03→22:10)
[2020-03-05] MEDS: MULTIVITAMINS (DAILY MVI) TABLET (FP) PO SCH (10:04)
[2020-03-05] MEDS: POLYETHYLENE GLYCOL 3350 119 GM BTL PO SCH (10:15)
[2020-03-05] MEDS: SODIUM CHLORIDE 1,000 ML IV SCH (11:36)
[2020-03-05] MEDS: DAPTOMYCIN 400 MG in SODIUM CHLORIDE 50 ML IVPB SCH (12:31)
[2020-03-05 13:03] LABS: BASO % 0.4 % (0-2.0); EOS % 3.4 % (0-4.5); HEMATOCRIT 29.2 % (35.4-49); HEMOGLOBIN 9.8 GM/dL (11.7-16.9); LYMPH % 13.3 % (8-40); MCH 28.2 pg (25.7-33.7); MCHC 33.5 g/dl (32.0-35.9); MEAN CELL VOLUME 84.3 fl (80-96); MEAN PLT VOLUME 7.4 fl (7.5-11.1); NEUT % 74.9 % (42.8-82.8); PLATELET COUNT 396 K/MM3 (134-434); RBC 3.46 M/mm3 (4.00-5.60); RDW 14.9 % (11.9-15.9); WHITE BLOOD COUNT 9.4 K/mm3 (4.0-10.0)
--- NOTE | 2020-03-05 13:12 | PN ---
Progress Note (short form) - Note Progress Note: UROLOGY NOTE 64 Y/O Male patient S/P d/c liang catheter voiding well good flow no dysuria no gross hematuria O/E Soft lax abd no palpable badder WBC 7.5 HB 7.6 BUN 21.5 S.Creat 1.1 Plan: flomax 0.8 mg daily will follow for cystoscopy and UDS as outpatient
[2020-03-05 13:24] LABS: ALBUMIN 1.6 g/dl (3.4-5.0); BILIRUBIN,TOTAL 0.2 mg/dL (0.2-1); BLOOD UREA NITROGEN 17.2 mg/dL (7-18); CALCIUM 8.6 mg/dL (8.5-10.1); TOT PROT 6.5 g/dl (6.4-8.2)
[2020-03-05] MEDS: HEPARIN NA (PORCINE) 5,000 UNITS/ML 1ML VIAL SQ SCH ×2 (14:32→22:09)
[2020-03-05] MEDS ORDERED: INSULIN (NOVOLOG) ASPART 100 UNITS/ML 10ML VIAL ONE (22:04)
[2020-03-05] MEDS: ACETAMINOPHEN 325 MG TABLET (FP) PO PRN (22:06)
[2020-03-05] MEDS: ATORVASTATIN CA 20 MG TABLET (FP) PO SCH (22:07)
[2020-03-05] MEDS: QUEtiapine FUMARATE 25 MG TABLET PO SCH (22:09)
[2020-03-05] MEDS: INSULIN (LEVEMIR) 100 UNITS/ML UNITS SQ SCH (22:12)
[2020-03-05] MEDS ORDERED: VALSARTAN 160 MG TABLET PO ONE (23:09)
[2020-03-06] MEDS: GABAPENTIN 300 MG CAPSULE PO SCH ×3 (06:36→22:07)
[2020-03-06] MEDS: HEPARIN NA (PORCINE) 5,000 UNITS/ML 1ML VIAL SQ SCH ×3 (06:36→22:04)
[2020-03-06] MEDS: INSULIN SLIDING SCALE (NOVOLOG) 1 VIAL SQ SCH ×4 (06:37→22:07)
--- NOTE | 2020-03-06 07:51 | PN ---
Physical Exam: SUBJECTIVE: Patient seen and examined OBJECTIVE: Vital Signs Period Temp Pulse Resp BP Sys/Leahy Pulse Ox Last 24 Hr 97.7 F-98.3 F 61-82 17-20 117-192/65-90 96-100 GENERAL: The patient is sleeping comfortably HEAD: Normal with no signs of trauma. EYES: PERRL, extraocular movements intact, sclera anicteric, conjunctiva clear. No ptosis. ENT: oropharynx clear without exudates, slightly dry mucous membranes. NECK: Trachea midline, full range of motion, supple. LUNGS: Breath sounds equal, clear to auscultation bilaterally, no wheezes, no crackles, no accessory muscle use. HEART: Regular rate and rhythm, S1, S2 without murmur, rub or gallop. ABDOMEN: Soft, nontender, nondistended, normoactive bowel sounds, no guarding, no rebound, no hepatosplenomegaly, no masses. EXTREMITIES: right foot is wrapped in gauze with toes exposed. Left foot and lower extremities appear normal, no edema, no erythema NEUROLOGICAL: Cranial nerves II through XII grossly intact. Normal speech, gait not observed. PSYCH: deferred SKIN: Warm, dry, normal turgor, no rashes or lesions noted Laboratory Results - last 24 hr 03/05/20 03/05/20 03/05/20 09:08 09:08 09:08 WBC 9.4 RBC 3.46 L Hgb 9.8 L Hct 29.2 L D MCV 84.3 MCH 28.2 MCHC 33.5 RDW 14.9 Plt Count 396 MPV 7.4 L Absolute Neuts (auto) 7.0 Neutrophils % 74.9 Lymphocytes % 13.3 Monocytes % 8.0 Eosinophils % 3.4 Basophils % 0.4 Nucleated RBC % 0 Sodium 142 Potassium 4.0 Chloride 111 H Carbon Dioxide 26 Anion Gap 6 L BUN 17.2 Creatinine 1.0 Est GFR (CKD-EPI)AfAm 93.08 Est GFR (CKD-EPI)NonAf 80.31 POC Glucometer Random Glucose 124 H Calcium 8.6 Total Bilirubin 0.2 AST 19 ALT 27 Alkaline Phosphatase 104 Creatine Kinase 34 C-Reactive Protein 8.3 H Total Protein 6.5 Albumin 1.6 L 03/05/20 03/05/20 03/05/20 11:34 16:17 21:58 WBC RBC Hgb Hct MCV MCH MCHC RDW Plt Count MPV Absolute Neuts (auto) Neutrophils % Lymphocytes % Monocytes % Eosinophils % Basophils % Nucleated RBC % Sodium Potassium Chloride Carbon Dioxide Anion Gap BUN Creatinine Est GFR (CKD-EPI)AfAm Est GFR (CKD-EPI)NonAf POC Glucometer 129 359 276 Random Glucose Calcium Total Bilirubin AST ALT Alkaline Phosphatase Creatine Kinase C-Reactive Protein Total Protein Albumin 03/06/20 06:35 WBC RBC Hgb Hct MCV MCH MCHC RDW Plt Count MPV Absolute Neuts (auto) Neutrophils % Lymphocytes % Monocytes % Eosinophils % Basophils % Nucleated RBC % Sodium Potassium Chloride Carbon Dioxide Anion Gap BUN Creatinine Est GFR (CKD-EPI)AfAm Est GFR (CKD-EPI)NonAf POC Glucometer 168 Random Glucose Calcium Total Bilirubin AST ALT Alkaline Phosphatase Creatine Kinase C-Reactive Protein Total Protein Albumin Active Medications Generic Name Dose Route Start Last Admin Trade Name Freq PRN Reason Stop Dose Admin Acetaminophen 650 mg 03/03/20 10:37 03/05/20 22:06 Tylenol - PO 650 mg Q4H PRN Administration FEVER Amino Acids 30 ml 03/03/20 17:30 03/05/20 17:21 Prosource No Carb Liquid Pkt PO 30 ml BID@0800,1730 [facility] Administration Artificial Tears 1 drop 03/03/20 10:37 Artificial Tears OU Q6H PRN DRY EYES Aspirin 81 mg 03/04/20 10:00 03/05/20 10:02 Asa - PO 81 mg DAILY [facility] Administration Atorvastatin Calcium 20 mg 03/03/20 22:00 03/05/20 22:07 Lipitor - PO 20 mg HS [facility] Administration Carvedilol 12.5 mg 03/03/20 22:00 03/05/20 22:07 Coreg - PO 12.5 mg BID [facility] Administration Digoxin 0.125 mg 03/04/20 10:00 03/05/20 10:02 Lanoxin - PO 0.125 mg DAILY [facility] Administration Docusate Sodium 100 mg 03/03/20 22:00 03/05/20 22:07 Colace - PO 100 mg BID [facility] Administration Famotidine 20 mg 03/03/20 22:00 03/05/20 22:09 Pepcid - PO 20 mg BID [facility] Administration Gabapentin 300 mg 03/03/20 14:00 03/06/20 06:36 Neurontin - PO 300 mg TID [facility] Administration Heparin Sodium (Porcine) 5,000 unit 03/05/20 14:00 03/06/20 06:36 Heparin - SQ 5,000 unit TID [facility] Administration Ertapenem 1 gm/ Sodium 50 mls @ 100 mls/hr 03/04/20 10:00 03/05/20 09:54 Chloride IVPB 100 mls/hr DAILY [facility] Administration Daptomycin 400 mg/ Sodium 50 mls @ 50 mls/hr 03/04/20 10:00 03/05/20 12:31 Chloride IVPB 50 mls/hr DAILY [facility] Administration Protocol Insulin Aspart 1 vial 03/03/20 11:00 03/06/20 06:37 Novolog Vial Sliding Scale - SQ 8 units ACHS [facility] Administration Protocol Insulin Detemir 30 units 03/03/20 22:00 03/05/20 22:12 Levemir Vial SQ 30 units HS [facility] Administration Magnesium Oxide 400 mg 03/03/20 22:00 03/05/20 22:10 Mag-Ox - PO 400 mg BID [facility] Administration Multivitamins/Minerals/Vitamin C 1 tab 03/04/20 10:00 03/05/20 10:04 Tab-A-Vit - PO 1 tab DAILY [facility] Administration Polyethylene Glycol 17 gm 03/04/20 10:00 03/05/20 10:15 Miralax (For Daily Use) - PO 17 gm DAILY [facility] Administration Quetiapine Fumarate 50 mg 03/03/20 22:00 03/05/20 22:09 Seroquel - PO 50 mg HS [facility] Administration Tamsulosin HCl 0.4 mg 03/04/20 08:30 03/05/20 09:30 Flomax - PO 0.4 mg DAILY@0830 [facility] Administration Valsartan 320 mg 03/06/20 10:00 Diovan - PO DAILY [facility] Zinc Sulfate 220 mg 03/04/20 10:00 03/05/20 10:02 Orazinc - PO 220 mg DAILY [facility] Administration ASSESSMENT/PLAN: 64 year old male with known history of hypertension, Type II IDDM, schizophrenia/dementia, h/o ETOH abuse, CAD with most recent nuclear scan (02/10) showing EF=45%, peripheral vascular disease s/p recent right great toe amputation at OSH admitted for gangrene and infection of the right foot. Had fem-pop bypass on 02/18/20. Post-op course complicated by groin abscess at surgical site. Now s/p partial removal of PTFE. 1. Infected surgical wound -s/p removal of fem portion of infected graft and VAC application -continue dapto, ertapenem - ID guiding antibiotic management (MD Neal) 2. Peripheral vascular disease - aspirin 3. Gangrene right foot -discussed with surgery, considering AKA, TBD -podiatry also following 4. Anemia of chronic disease -s/p transfused 1U PRBC on 02/24 and 03/04 - hct stable 5. Hypertension - cont carvedilol, valsartan and monitor 6. Hyperlipidemia -continue Lipitor 7. Type II IDDM -continue Levemir 30U qhs -Novolog sliding scale covera 8. Severe protein calorie malnutrition -Glucerna BID, prosource BID, zinc 9. DVT prophylaxis: subq heparin Dispo: continues to require inpatient care. DNR/DNI Visit type - Emergency Visit Emergency Visit: Yes ED Registration Date: 02/03/20 Care time: The patient presented to the Emergency Department on the above date and was hospitalized for further evaluation of their emergent condition. - New Patient This patient is new to me today: Yes Date on this admission: 03/06/20 - Critical Care Critical Care patient: No
[2020-03-06] MEDS: TAMSULOSIN HCL 0.4 MG CAP PO SCH (09:00)
[2020-03-06] MEDS: AMINO ACIDS/PROTEIN HYDROLYS 30 ML LIQUID.PKT PO SCH ×2 (09:00→17:09)
[2020-03-06] MEDS: MULTIVITAMINS (DAILY MVI) TABLET (FP) PO SCH (09:33)
[2020-03-06] MEDS: DOCUSATE SODIUM 100 MG CAPSULE (FP) PO SCH ×2 (09:33→22:04)
[2020-03-06] MEDS: FAMOTIDINE 20 MG TABLET PO SCH ×2 (09:33→22:04)
[2020-03-06] MEDS: ASPIRIN 81 MG CHEWABLE TABLETS PO SCH (09:33)
[2020-03-06] MEDS: DIGOXIN 0.125 MG TABLET (FP) PO SCH (09:34)
[2020-03-06] MEDS: ZINC SULFATE 220 MG CAPSULE (FP) PO SCH (09:34)
[2020-03-06] MEDS: ERTAPENEM SODIUM 1 GM in SODIUM CHLORIDE 50 ML IVPB SCH (09:34)
[2020-03-06] MEDS: CARVEDILOL 12.5 MG TABLET (FP) PO SCH ×2 (09:36→22:04)
[2020-03-06] MEDS: VALSARTAN 160 MG TABLET PO SCH (09:36)
[2020-03-06] MEDS: MAGNESIUM OXIDE 400 MG TABLET (FP) PO SCH ×2 (09:37→22:06)
[2020-03-06] MEDS: POLYETHYLENE GLYCOL 3350 119 GM BTL PO SCH (09:38)
[2020-03-06 10:04] LABS: BASO % 0.5 % (0-2.0); HEMATOCRIT 31.5 % (35.4-49); HEMOGLOBIN 10.2 GM/dL (11.7-16.9); LYMPH % 19.6 % (8-40); MCH 27.2 pg (25.7-33.7); MCHC 32.3 g/dl (32.0-35.9); MEAN CELL VOLUME 84.1 fl (80-96); MEAN PLT VOLUME 7.4 fl (7.5-11.1); MONO % 6.7 % (3.8-10.2); NEUT % 69.2 % (42.8-82.8); PLATELET COUNT 430 K/MM3 (134-434); RBC 3.74 M/mm3 (4.00-5.60); RDW 15.3 % (11.9-15.9); WHITE BLOOD COUNT 7.7 K/mm3 (4.0-10.0)
[2020-03-06 10:29] LABS: ALBUMIN 1.6 g/dl (3.4-5.0); BILIRUBIN,TOTAL 0.4 mg/dL (0.2-1); BLOOD UREA NITROGEN 23.6 mg/dL (7-18); CALCIUM 9.1 mg/dL (8.5-10.1); CREATININE 1.3 mg/dL (0.55-1.3); POTASSIUM 3.9 mmol/L (3.5-5.1)
[2020-03-06 11:03] LABS: TOT PROT 7.3 g/dl (6.4-8.2)
[2020-03-06] MEDS ORDERED: INSULIN (NOVOLOG) ASPART 100 UNITS/ML 10ML VIAL ONE ×2 (11:07→21:07)
--- NOTE | 2020-03-06 11:14 | PN ---
Progress Note, Physician Chief Complaint: PAD History of Present Illness: denies cp, sob, palp, syncope - Current Medication List Current Medications: Active Medications Acetaminophen (Tylenol -) 650 mg PO Q4H PRN PRN Reason: FEVER Last Admin: 03/05/20 22:06 Dose: 650 mg Documented by: Amino Acids (Prosource No Carb Liquid Pkt) 30 ml PO BID@0800,1730 [facility] Last Admin: 03/06/20 09:00 Dose: 30 ml Documented by: Artificial Tears (Artificial Tears) 1 drop OU Q6H PRN PRN Reason: DRY EYES Aspirin (Asa -) 81 mg PO DAILY [facility] Last Admin: 03/06/20 09:33 Dose: 81 mg Documented by: Atorvastatin Calcium (Lipitor -) 20 mg PO HS [facility] Last Admin: 03/05/20 22:07 Dose: 20 mg Documented by: Carvedilol (Coreg -) 12.5 mg PO BID [facility] Last Admin: 03/06/20 09:36 Dose: 12.5 mg Documented by: Digoxin (Lanoxin -) 0.125 mg PO DAILY [facility] Last Admin: 03/06/20 09:34 Dose: 0.125 mg Documented by: Docusate Sodium (Colace -) 100 mg PO BID [facility] Last Admin: 03/06/20 09:33 Dose: 100 mg Documented by: Famotidine (Pepcid -) 20 mg PO BID [facility] Last Admin: 03/06/20 09:33 Dose: 20 mg Documented by: Gabapentin (Neurontin -) 300 mg PO TID [facility] Last Admin: 03/06/20 06:36 Dose: 300 mg Documented by: Heparin Sodium (Porcine) (Heparin -) 5,000 unit SQ TID [facility] Last Admin: 03/06/20 06:36 Dose: 5,000 unit Documented by: Ertapenem 1 gm/ Sodium (Chloride) 50 mls @ 100 mls/hr IVPB DAILY [facility] Last Admin: 03/06/20 09:34 Dose: 100 mls/hr Documented by: Daptomycin 400 mg/ Sodium (Chloride) 50 mls @ 50 mls/hr IVPB DAILY [facility]; Protocol Last Admin: 03/05/20 12:31 Dose: 50 mls/hr Documented by: Insulin Aspart (Novolog Vial Sliding Scale -) 1 vial SQ ACHS [facility]; Protocol Last Admin: 09/13/20 06:37 Dose: 8 units Documented by: Insulin Detemir (Levemir Vial) 30 units SQ [facility] Last Admin: 03/05/20 22:12 Dose: 30 units Documented by: Magnesium Oxide (Mag-Ox -) 400 mg PO BID [facility] Last Admin: 03/06/20 09:37 Dose: 400 mg Documented by: Multivitamins/Minerals/Vitamin C (Tab-A-Vit -) 1 tab PO DAILY [facility] Last Admin: 03/06/20 09:33 Dose: 1 tab Documented by: Polyethylene Glycol (Miralax (For Daily Use) -) 17 gm PO DAILY [facility] Last Admin: 03/06/20 09:38 Dose: 17 gm Documented by: Quetiapine Fumarate (Seroquel -) 50 mg PO [facility] Last Admin: 03/05/20 22:09 Dose: 50 mg Documented by: Tamsulosin HCl (Flomax -) 0.4 mg PO DAILY@0830 [facility] Last Admin: 03/06/20 09:00 Dose: 0.4 mg Documented by: Valsartan (Diovan -) 320 mg PO DAILY [facility] Last Admin: 03/06/20 09:36 Dose: Not Given Documented by: Zinc Sulfate (Orazinc -) 220 mg PO DAILY [facility] Last Admin: 03/06/20 09:34 Dose: 220 mg Documented by: - Objective Vital Signs: Vital Signs Temperature 98 F 03/06/20 09:02 Pulse Rate 70 03/06/20 09:34 Respiratory Rate 18 03/06/20 09:02 Blood Pressure 90/57 L 03/06/20 09:02 O2 Sat by Pulse Oximetry (%) 97 03/06/20 09:02 Constitutional: Yes: Well Nourished, No Distress, Calm Cardiovascular: Yes: Regular Rate and Rhythm, S1, S2. No: Gallop, Murmur Respiratory: Yes: Regular, CTA Bilaterally. No: Accessory Muscle Use Extremities: No: Cold Edema: No Neurological: Yes: Alert. No: Seizure Psychiatric: No: Agitated Labs: CBC, BMP 03/06/20 08:40 03/06/20 08:40 INR, PTT INR 1.20 (0.83-1.09) H 02/26/20 09:10 Assessment/Plan echo 01/2020: normal LVEF, nl RV, nl valve function. CXR: ATX vs infiltrate R base, no effusions/congestion mibi 01/2020 mod sized area of inferolateral scar, no ischemia, EF 45% Post op CV eval, PAD: -s/p R. Fem-Pop: tolerated surgery well, hemodynamically stable CAD: - no angina sx's here - preop mibi shows inferolateral scar, no ischemia. mildly reduced EF. - continue statin, aspirin - on digoxin for unclear indication, levels ok here, continue--outpt f/u with prior treating physician DM: -per hospitalist HTN: -bp persistently elevated since 03/03 -coreg increased to 12.5 bid, remains high -start valsartan 160 (PAD, CAD, DM indications)--watch creat/K -spiked again last night, observe trend--would incr valsartan to bid next, then add amlodipine if continues to spike HPL: -cont statin
[2020-03-06] MEDS: DAPTOMYCIN 400 MG in SODIUM CHLORIDE 50 ML IVPB SCH (11:22)
[2020-03-06] MEDS: QUEtiapine FUMARATE 25 MG TABLET PO SCH (22:04)
[2020-03-06] MEDS: INSULIN (LEVEMIR) 100 UNITS/ML UNITS SQ SCH (22:04)
[2020-03-06] MEDS: ATORVASTATIN CA 20 MG TABLET (FP) PO SCH (22:04)
[2020-03-07] MEDS: GABAPENTIN 300 MG CAPSULE PO SCH ×3 (06:27→21:54)
[2020-03-07] MEDS: HEPARIN NA (PORCINE) 5,000 UNITS/ML 1ML VIAL SQ SCH ×3 (06:27→21:53)
[2020-03-07] MEDS: INSULIN SLIDING SCALE (NOVOLOG) 1 VIAL SQ SCH ×4 (06:28→22:13)
[2020-03-07 08:58] LABS: BLOOD UREA NITROGEN 25.7 mg/dL (7-18); CALCIUM 8.9 mg/dL (8.5-10.1); CREATININE 1.2 mg/dL (0.55-1.3); POTASSIUM 3.8 mmol/L (3.5-5.1)
[2020-03-07] MEDS ORDERED: INSULIN (NOVOLOG) ASPART 100 UNITS/ML 10ML VIAL ONE ×2 (10:25→22:12)
[2020-03-07] MEDS: FAMOTIDINE 20 MG TABLET PO SCH ×2 (10:41→21:54)
[2020-03-07] MEDS: TAMSULOSIN HCL 0.4 MG CAP PO SCH (10:41)
[2020-03-07] MEDS: MULTIVITAMINS (DAILY MVI) TABLET (FP) PO SCH (10:41)
[2020-03-07] MEDS: ZINC SULFATE 220 MG CAPSULE (FP) PO SCH (10:41)
[2020-03-07] MEDS: ASPIRIN 81 MG CHEWABLE TABLETS PO SCH (10:41)
[2020-03-07] MEDS: ERTAPENEM SODIUM 1 GM in SODIUM CHLORIDE 50 ML IVPB SCH (10:41)
[2020-03-07] MEDS: AMINO ACIDS/PROTEIN HYDROLYS 30 ML LIQUID.PKT PO SCH ×2 (10:41→16:51)
[2020-03-07] MEDS: DIGOXIN 0.125 MG TABLET (FP) PO SCH (10:41)
[2020-03-07] MEDS: CARVEDILOL 12.5 MG TABLET (FP) PO SCH ×2 (10:42→21:54)
[2020-03-07] MEDS: DOCUSATE SODIUM 100 MG CAPSULE (FP) PO SCH ×2 (10:42→21:54)
[2020-03-07] MEDS: VALSARTAN 160 MG TABLET PO SCH (10:42)
[2020-03-07] MEDS: MAGNESIUM OXIDE 400 MG TABLET (FP) PO SCH ×2 (10:43→21:55)
[2020-03-07] MEDS: POLYETHYLENE GLYCOL 3350 119 GM BTL PO SCH (10:43)
--- NOTE | 2020-03-07 11:02 | PN ---
Progress Note (short form) - Note Progress Note: s: confused Current Medications Generic Name Dose Route Start Last Admin Trade Name Freq PRN Reason Stop Dose Admin Acetaminophen 650 mg 03/03/20 10:37 03/05/20 22:06 Tylenol - PO 650 mg Q4H PRN Administration FEVER Amino Acids 30 ml 03/03/20 17:30 03/07/20 10:41 Prosource No Carb Liquid Pkt PO 30 ml BID@0800,1730 HUGO Administration Artificial Tears 1 drop 03/03/20 10:37 Artificial Tears OU Q6H PRN DRY EYES Aspirin 81 mg 03/04/20 10:00 03/07/20 10:41 Asa - PO 81 mg DAILY HUGO Administration Atorvastatin Calcium 20 mg 03/03/20 22:00 03/06/20 22:04 Lipitor - PO 20 mg HS HUGO Administration Carvedilol 12.5 mg 03/03/20 22:00 03/07/20 10:42 Coreg - PO 12.5 mg BID HUGO Administration Digoxin 0.125 mg 03/04/20 10:00 03/07/20 10:41 Lanoxin - PO 0.125 mg DAILY HUGO Administration Docusate Sodium 100 mg 03/03/20 22:00 03/07/20 10:42 Colace - PO 100 mg BID HUGO Administration Famotidine 20 mg 03/03/20 22:00 03/07/20 10:41 Pepcid - PO 20 mg BID HUGO Administration Gabapentin 300 mg 03/03/20 14:00 03/07/20 06:27 Neurontin - PO 300 mg TID HUGO Administration Heparin Sodium (Porcine) 5,000 unit 03/05/20 14:00 03/07/20 06:27 Heparin - SQ 5,000 unit TID HUGO Administration Ertapenem 1 gm/ Sodium 50 mls @ 100 mls/hr 03/04/20 10:00 03/07/20 10:41 Chloride IVPB 100 mls/hr DAILY HUGO Administration Daptomycin 400 mg/ Sodium 50 mls @ 50 mls/hr 03/04/20 10:00 03/06/20 11:22 Chloride IVPB 50 mls/hr DAILY HUGO Administration Protocol Insulin Aspart 1 vial 03/03/20 11:00 03/07/20 06:28 Novolog Vial Sliding Scale - SQ 8 units ACHS HUGO Administration Protocol Insulin Detemir 30 units 03/03/20 22:00 03/06/20 22:04 Levemir Vial SQ 30 units HS HUGO Administration Magnesium Oxide 400 mg 03/03/20 22:00 03/07/20 10:43 Mag-Ox - PO 400 mg BID HUGO Administration Multivitamins/Minerals/Vitamin C 1 tab 03/04/20 10:00 03/07/20 10:41 Tab-A-Vit - PO 1 tab DAILY HUGO Administration Polyethylene Glycol 17 gm 03/04/20 10:00 03/07/20 10:43 Miralax (For Daily Use) - PO 17 gm DAILY HUGO Administration Quetiapine Fumarate 50 mg 03/03/20 22:00 03/06/20 22:04 Seroquel - PO 50 mg HS HUGO Administration Tamsulosin HCl 0.4 mg 03/04/20 08:30 03/07/20 10:41 Flomax - PO 0.4 mg DAILY@0830 HUGO Administration Valsartan 320 mg 03/06/20 10:00 03/07/20 10:42 Diovan - PO 320 mg DAILY HUGO Administration Zinc Sulfate 220 mg 03/04/20 10:00 03/07/20 10:41 Orazinc - PO 220 mg DAILY HUGO Administration Vital Signs Period Temp Pulse Resp BP Sys/Leahy Pulse Ox Last 24 Hr 97.8 F-99.3 F 75-87 16-18 123-152/68-92 96-98 Constitutional: Yes: Well Nourished, No Distress Eyes: No: Sclera Icterus HENT: No: Nasal Congestion Respiratory: Yes: CTA Bilaterally. No: Accessory Muscle Use, Rales, Wheezes Gastrointestinal: Yes: Normal Bowel Sounds. No: Distention, Hepatomegaly, Palpable Mass, Tenderness Cardiovascular: Yes: Regular Rate and Rhythm JVD: No Heart Sounds: Yes: S1, S2. No: Gallop Murmur: No: Systolic Murmur, Diastolic Murmur Edema: No Integumentary: No: Jaundice Neurological: Yes: Alert. No: Seizure Psychiatric: No: Agitated CBC, BMP 03/06/20 08:40 03/07/20 06:52 Assessment/Plan echo 01/2020: normal LVEF, nl RV, nl valve function. CXR: ATX vs infiltrate R base, no effusions/congestion mibi 01/2020 mod sized area of inferolateral scar, no ischemia, EF 45% Post op CV eval, PAD: -s/p R. Fem-Pop: tolerated surgery well, hemodynamically stable CAD: - no angina sx's here - preop mibi shows inferolateral scar, no ischemia. mildly reduced EF. - continue statin, aspirin - on digoxin for unclear indication, levels ok here, continue--outpt f/u with prior treating physician DM: -per hospitalist HTN: -improved, cont current meds HPL: -cont statin
--- NOTE | 2020-03-07 11:02 | SPA.PREOP ---
- PRE-OP NOTE Dx: Rt foot infection Planned Procedure: Above knee amputation Surgeon: Thien Pineda, DO Last Vital Signs Temp Pulse Resp BP Pulse Ox 99.3 F 76 16 132/90 98 03/07/20 10:00 03/07/20 10:41 03/07/20 10:00 03/07/20 10:00 03/07/20 10:00 Lab Results WBC 7.7 K/mm3 (4.0-10.0) 03/06/20 08:40 RBC 3.74 M/mm3 (4.00-5.60) L 03/06/20 08:40 Hgb 10.2 GM/dL (11.7-16.9) L 03/06/20 08:40 Hct 31.5 % (35.4-49) L 03/06/20 08:40 MCV 84.1 fl (80-96) 03/06/20 08:40 MCHC 32.3 g/dl (32.0-35.9) 03/06/20 08:40 RDW 15.3 % (11.9-15.9) 03/06/20 08:40 Plt Count 430 K/MM3 (134-434) 03/06/20 08:40 INR 1.20 (0.83-1.09) H 02/26/20 09:10 Sodium 140 mmol/L (136-145) 03/07/20 06:52 Potassium 3.8 mmol/L (3.5-5.1) 03/07/20 06:52 Chloride 109 mmol/L (98-107) H 03/07/20 06:52 Carbon Dioxide 27 mmol/L (21-32) 03/07/20 06:52 Anion Gap 4 MMOL/L (8-16) L 03/07/20 06:52 BUN 25.7 mg/dL (7-18) H 03/07/20 06:52 Creatinine 1.2 mg/dL (0.55-1.3) 03/07/20 06:52 Random Glucose 114 mg/dL (74-106) H 03/07/20 06:52 Calcium 8.9 mg/dL (8.5-10.1) 03/07/20 06:52 Blood Type O POSITIVE 03/03/20 09:13 Antibody Screen Negative 03/03/20 09:13 - ASSESSMENT/PLAN 1. Make NPO after midnight except po meds 2. GI/DVT PPX 3. Medical optimization / clearance 4. Consent to be obtained by surgeon after risks, benefits and alternatives discussed with patient and or Health Care Proxy. Problem List - Problems (1) Infected surgical wound Code(s): T81.49XA - INFECTION FOLLOWING A PROCEDURE, OTHER SURGICAL SITE, INIT
[2020-03-07] MEDS: DAPTOMYCIN 400 MG in SODIUM CHLORIDE 50 ML IVPB SCH (11:26)
--- NOTE | 2020-03-07 13:34 | PN ---
Progress Note (short form) - Note Progress Note: s/p washout with infected graft removal and vac placement no complaints, eating lunch Vital Signs Period Temp Pulse Resp BP Sys/Leahy Pulse Ox Last 24 Hr 97.8 F-99.3 F 75-87 16-18 123-152/68-92 96-98 cor-rrr lungs clear abd soft,nt +vac right groin right foot with dry gangrene and open ulcer -no erythema or drainage noted CBC, BMP 03/06/20 08:40 03/07/20 06:52 Microbiology 03/03/20 09:24 Groin - Right Gram Stain - Final 03/03/20 09:24 Groin - Right Wound Culture - Final Vr Ec Faecium Mr S Aureus Yeast Like Organism 02/26/20 14:37 Groin - Right Gram Stain - Final 02/26/20 14:37 Groin - Right Wound Culture - Final Klebsiella Pneumoniae - Esbl Vr Ec Faecium Enterococcus Faecalis 02/24/20 18:00 Blood - Peripheral Venous Blood Culture - Final NO GROWTH AFTER 5 DAYS INCUBATION 02/24/20 18:15 Blood - Peripheral Venous Blood Culture - Final NO GROWTH AFTER 5 DAYS INCUBATION 02/24/20 15:30 Groin - Right Gram Stain - Final 02/24/20 15:30 Groin - Right Wound Culture - Final Klebsiella Pneumoniae - Esbl Vr Ec Faecium 02/21/20 15:23 Blood - Peripheral Venous Blood Culture - Final NO GROWTH AFTER 5 DAYS INCUBATION 02/21/20 15:35 Blood - Peripheral Venous Blood Culture - Final NO GROWTH AFTER 5 DAYS INCUBATION 02/24/20 00:30 Urine - Urine - Catheterized Urine Culture - Final NO GROWTH OBTAINED 02/05/20 07:50 Blood - Peripheral Venous Blood Culture - Final NO GROWTH AFTER 5 DAYS INCUBATION 02/05/20 08:08 Blood - Peripheral Venous Blood Culture - Final NO GROWTH AFTER 5 DAYS INCUBATION 02/03/20 13:05 Blood - Peripheral Venous Blood Culture - Final NO GROWTH AFTER 5 DAYS INCUBATION 02/03/20 13:05 Blood - Peripheral Venous Blood Culture - Final NO GROWTH AFTER 5 DAYS INCUBATION 02/03/20 16:20 Toe - Right Hallux Gram Stain - Final 02/03/20 16:20 Toe - Right Hallux Wound Culture - Final Klebsiella Pneumoniae - Esbl Proteus Mirabilis Enterococcus Faecalis Laboratory Tests 02/28/20 03/05/20 07:25 09:08 Creatine Kinase 36 34 crp 8.3 a/p infected fem/pop graft- vre and esbl kleb, continue daptomycin and ertapenem, further management of wounds per surgery s/p removal infected graft contact isolation diabetic foot ulcer PVD nonhealing wound of the right foot dementia schizophrenia repeat crp trending down Problem List - Problems (1) Fever Code(s): R50.9 - FEVER, UNSPECIFIED (2) Diabetic foot infection Code(s): E11.628 - TYPE 2 DIABETES MELLITUS WITH OTHER SKIN COMPLICATIONS; L08.9 - LOCAL INFECTION OF THE SKIN AND SUBCUTANEOUS TISSUE, UNSP (3) PVD (peripheral vascular disease) Code(s): I73.9 - PERIPHERAL VASCULAR DISEASE, UNSPECIFIED (4) CKD (chronic kidney disease) Code(s): N18.9 - CHRONIC KIDNEY DISEASE, UNSPECIFIED (5) Anemia Code(s): D64.9 - ANEMIA, UNSPECIFIED
[2020-03-07] MEDS: ACETAMINOPHEN 325 MG TABLET (FP) PO PRN (16:05)
--- NOTE | 2020-03-07 16:07 | PN ---
Physical Exam: SUBJECTIVE: Patient seen and examined OBJECTIVE: Vital Signs Period Temp Pulse Resp BP Sys/Leahy Pulse Ox Last 24 Hr 97.8 F-99.3 F 75-87 16-18 123-152/68-92 96-98 GENERAL: The patient is awake, confused HEENT: AT/NC, PERRLA, EOMI LUNGS: Breath sounds equal, clear to auscultation bilaterally, no wheezes, no crackles, no accessory muscle use. HEART: Regular rate and rhythm, S1, S2 without murmur, rub or gallop. ABDOMEN: Soft, nontender, nondistended, normoactive bowel sounds, no guarding, no rebound, no hepatosplenomegaly, no masses. EXTREMITIES: right foot is wrapped in gauze, Rt groin wound vac in place. Left foot and lower extremities appear normal, no edema, no erythema NEUROLOGICAL: Cranial nerves II through XII grossly intact. Normal speech, gait not observed. SKIN: Warm, dry, normal turgor, no rashes or lesions noted Laboratory Results - last 24 hr 03/03/20 03/06/20 03/06/20 09:13 16:20 22:00 Sodium Potassium Chloride Carbon Dioxide Anion Gap BUN Creatinine Est GFR (CKD-EPI)AfAm Est GFR (CKD-EPI)NonAf POC Glucometer 213 239 Random Glucose Calcium Blood Type O POSITIVE Antibody Screen Negative Crossmatch See Detail 03/07/20 03/07/20 03/07/20 06:25 06:52 11:33 Sodium 140 Potassium 3.8 Chloride 109 H Carbon Dioxide 27 Anion Gap 4 L BUN 25.7 H Creatinine 1.2 Est GFR (CKD-EPI)AfAm 74.66 Est GFR (CKD-EPI)NonAf 64.42 POC Glucometer 162 185 Random Glucose 114 H Calcium 8.9 Blood Type Antibody Screen Crossmatch 03/07/20 13:07 Sodium Potassium Chloride Carbon Dioxide Anion Gap BUN Creatinine Est GFR (CKD-EPI)AfAm Est GFR (CKD-EPI)NonAf POC Glucometer Random Glucose Calcium Blood Type O POSITIVE Antibody Screen Negative Crossmatch See Detail Active Medications Generic Name Dose Route Start Last Admin Trade Name Freq PRN Reason Stop Dose Admin Acetaminophen 650 mg 03/03/20 10:37 03/05/20 22:06 Tylenol - PO 650 mg Q4H PRN Administration FEVER Amino Acids 30 ml 03/03/20 17:30 03/07/20 10:41 Prosource No Carb Liquid Pkt PO 30 ml BID@0800,1730 HUGO Administration Artificial Tears 1 drop 03/03/20 10:37 Artificial Tears OU Q6H PRN DRY EYES Aspirin 81 mg 03/04/20 10:00 03/07/20 10:41 Asa - PO 81 mg DAILY HUGO Administration Atorvastatin Calcium 20 mg 03/03/20 22:00 03/06/20 22:04 Lipitor - PO 20 mg HS HUGO Administration Carvedilol 12.5 mg 03/03/20 22:00 03/07/20 10:42 Coreg - PO 12.5 mg BID HUGO Administration Digoxin 0.125 mg 03/04/20 10:00 03/07/20 10:41 Lanoxin - PO 0.125 mg DAILY HUGO Administration Docusate Sodium 100 mg 03/03/20 22:00 03/07/20 10:42 Colace - PO 100 mg BID HUGO Administration Famotidine 20 mg 03/03/20 22:00 03/07/20 10:41 Pepcid - PO 20 mg BID HUGO Administration Gabapentin 300 mg 03/03/20 14:00 03/07/20 14:17 Neurontin - PO 300 mg TID HUGO Administration Heparin Sodium (Porcine) 5,000 unit 03/05/20 14:00 03/07/20 14:16 Heparin - SQ 5,000 unit TID HUGO Administration Ertapenem 1 gm/ Sodium 50 mls @ 100 mls/hr 03/04/20 10:00 03/07/20 10:41 Chloride IVPB 100 mls/hr DAILY HUGO Administration Daptomycin 400 mg/ Sodium 50 mls @ 50 mls/hr 03/04/20 10:00 03/07/20 11:26 Chloride IVPB 50 mls/hr DAILY HUGO Administration Protocol Insulin Aspart 1 vial 03/03/20 11:00 03/07/20 11:26 Novolog Vial Sliding Scale - SQ 8 units ACHS HUGO Administration Protocol Insulin Detemir 30 units 03/03/20 22:00 03/06/20 22:04 Levemir Vial SQ 30 units HS HUGO Administration Magnesium Oxide 400 mg 03/03/20 22:00 03/07/20 10:43 Mag-Ox - PO 400 mg BID HUGO Administration Multivitamins/Minerals/Vitamin C 1 tab 03/04/20 10:00 03/07/20 10:41 Tab-A-Vit - PO 1 tab DAILY HUGO Administration Polyethylene Glycol 17 gm 03/04/20 10:00 03/07/20 10:43 Miralax (For Daily Use) - PO 17 gm DAILY HUGO Administration Quetiapine Fumarate 50 mg 03/03/20 22:00 03/06/20 22:04 Seroquel - PO 50 mg HS HUGO Administration Tamsulosin HCl 0.4 mg 03/04/20 08:30 03/07/20 10:41 Flomax - PO 0.4 mg DAILY@0830 HUGO Administration Valsartan 320 mg 03/06/20 10:00 03/07/20 10:42 Diovan - PO 320 mg DAILY HUGO Administration Zinc Sulfate 220 mg 03/04/20 10:00 03/07/20 10:41 Orazinc - PO 220 mg DAILY HUGO Administration ASSESSMENT/PLAN: 64 year old male with known history of hypertension, Type II IDDM, schizophrenia/dementia, h/o ETOH abuse, CAD with most recent nuclear scan (02/10) showing EF=45%, peripheral vascular disease s/p recent right great toe amputation at OSH admitted for gangrene and infection of the right foot. Had fem-pop bypass on 02/18/20. Post-op course complicated by groin abscess at surgical site. Now s/p partial removal of PTFE. # Rt Infected surgical wound and gangrenous Rt foot PAD, Gangrene right foot s/p removal of fem portion of infected graft and VAC application continue Abx per ID Planned AKA in AM RCRI 4 (class IV risk, 15% periOp risk), high risk pt for high risk surgery podiatry following Anemia of chronic disease Hypertension Hyperlipidemia Type II IDDM Severe protein calorie malnutrition DVT prophylaxis: subq heparin DNR/DNI Visit type - Emergency Visit Emergency Visit: Yes ED Registration Date: 02/03/20 Care time: The patient presented to the Emergency Department on the above date and was hospitalized for further evaluation of their emergent condition. - New Patient This patient is new to me today: Yes Date on this admission: 03/07/20 - Critical Care Critical Care patient: No - Discharge Referral Referred to [facility] Med P.C.: No
--- NOTE | 2020-03-07 19:26 | PN ---
Progress Note (short form) - Note Progress Note: Vascular Surgery Pt for right bka osiris. Consent obtained from brother. All risks, benefits, alternatives explained to brother. NPO past midnight. Thien Pineda DO
[2020-03-07] MEDS: QUEtiapine FUMARATE 25 MG TABLET PO SCH (21:53)
[2020-03-07] MEDS: ATORVASTATIN CA 20 MG TABLET (FP) PO SCH (21:54)
[2020-03-07] MEDS: INSULIN (LEVEMIR) 100 UNITS/ML UNITS SQ SCH (21:55)
[2020-03-08] MEDS: HEPARIN NA (PORCINE) 5,000 UNITS/ML 1ML VIAL SQ SCH ×2 (05:16→22:14)
[2020-03-08] MEDS: GABAPENTIN 300 MG CAPSULE PO SCH ×3 (05:17→22:15)
[2020-03-08] MEDS: INSULIN SLIDING SCALE (NOVOLOG) 1 VIAL SQ SCH ×4 (06:11→22:15)
[2020-03-08] MEDS ORDERED: INSULIN (NOVOLOG) ASPART 100 UNITS/ML 10ML VIAL ONE ×5 (06:45→22:11)
[2020-03-08 08:01] LABS: BASO % 0.7 % (0-2.0); EOS % 5.4 % (0-4.5); HEMATOCRIT 32.7 % (35.4-49); HEMOGLOBIN 10.8 GM/dL (11.7-16.9); LYMPH % 15.7 % (8-40); MCH 27.9 pg (25.7-33.7); MCHC 33.1 g/dl (32.0-35.9); MEAN CELL VOLUME 84.2 fl (80-96); MEAN PLT VOLUME 7.2 fl (7.5-11.1); MONO % 6.7 % (3.8-10.2); NEUT % 71.5 % (42.8-82.8); PLATELET COUNT 380 K/MM3 (134-434); RBC 3.88 M/mm3 (4.00-5.60); RDW 15.7 % (11.9-15.9); WHITE BLOOD COUNT 7.2 K/mm3 (4.0-10.0)
[2020-03-08 08:21] LABS: INR 1.21 (0.83-1.09); PROTHROMBIN TIME (PATIENT) 14.3 SEC (9.7-13.0)
[2020-03-08 08:36] LABS: BLOOD UREA NITROGEN 27.8 mg/dL (7-18); CALCIUM 8.7 mg/dL (8.5-10.1); CREATININE 1.1 mg/dL (0.55-1.3); POTASSIUM 4.1 mmol/L (3.5-5.1)
[2020-03-08] MEDS: ASPIRIN 81 MG CHEWABLE TABLETS PO SCH (09:23)
[2020-03-08] MEDS: TAMSULOSIN HCL 0.4 MG CAP PO SCH (09:23)
[2020-03-08] MEDS: DOCUSATE SODIUM 100 MG CAPSULE (FP) PO SCH ×2 (09:23→22:14)
[2020-03-08] MEDS: AMINO ACIDS/PROTEIN HYDROLYS 30 ML LIQUID.PKT PO SCH ×2 (09:23→16:31)
[2020-03-08] MEDS: ZINC SULFATE 220 MG CAPSULE (FP) PO SCH (09:24)
[2020-03-08] MEDS: FAMOTIDINE 20 MG TABLET PO SCH ×2 (09:24→22:13)
[2020-03-08] MEDS: MULTIVITAMINS (DAILY MVI) TABLET (FP) PO SCH (09:24)
[2020-03-08] MEDS: MAGNESIUM OXIDE 400 MG TABLET (FP) PO SCH ×2 (09:24→22:13)
[2020-03-08] MEDS: POLYETHYLENE GLYCOL 3350 119 GM BTL PO SCH (09:24)
[2020-03-08] MEDS: ERTAPENEM SODIUM 1 GM in SODIUM CHLORIDE 50 ML IVPB SCH (09:26)
[2020-03-08] MEDS: DIGOXIN 0.125 MG TABLET (FP) PO SCH (09:41)
[2020-03-08] MEDS: VALSARTAN 160 MG TABLET PO SCH (09:42)
[2020-03-08] MEDS: CARVEDILOL 12.5 MG TABLET (FP) PO SCH ×2 (09:42→22:12)
--- NOTE | 2020-03-08 10:10 | PN ---
Physical Exam: SUBJECTIVE: Patient seen and examined. Awake, alert, denies pain OBJECTIVE: Patient is a 64 year old male with a significant past medical history of DM, schizophrenia, HTN, HLD, GERD, dementia, EtOH use disorder who had his right knee great toe amputated apx 1 month ago, presents to the ED on 02/03/2020 with right 2nd digit gangrene. At [facility] pt underwent RLE angiogram which revealed right SFA occlusion. He is being followed by vascular surgery and is s/p fem-pop bypass. Right groin wound now with purulent drainage and found to be infected and a wound vac placed. Patient for a right below knee amputation today ------ dnr/dni per molst form dated and signed on 12/23/2019 covid status: negative as per serology 02/02, 02/10/2020, 03/07/2020 Vital Signs Period Temp Pulse Resp BP Sys/Leahy Pulse Ox Last 24 Hr 98.0 F-98.7 F 73-94 16-18 126-161/71-86 96-98 GENERAL: The patient is awake, alert, in no acute distress. forgetful HEAD: Normal with no signs of trauma. EYES: PERRL, extraocular movements intact, sclera anicteric, conjunctiva clear. No ptosis. ENT: Ears normal, nares patent, oropharynx clear without exudates NECK: Trachea midline, full range of motion, supple. LUNGS: Breath sounds equal HEART: Regular rate and rhythm ABDOMEN: Soft, nontender, nondistended, normoactive bowel sounds right groin wound, surgical agnes intact, redness noted around wound. EXTREMITIES: right foot dressing, for right 2nd and 3rd digit gangrene. wound wrapped in aguilar, for amputation today. wound vac in place. NEUROLOGICAL: Normal speech, gait not observed. PSYCH: Normal mood, normal affect Laboratory Results - last 24 hr 03/07/20 03/07/20 03/07/20 11:33 13:07 16:04 WBC RBC Hgb Hct MCV MCH MCHC RDW Plt Count MPV Absolute Neuts (auto) Neutrophils % Lymphocytes % Monocytes % Eosinophils % Basophils % Nucleated RBC % PT with INR INR Sodium Potassium Chloride Carbon Dioxide Anion Gap BUN Creatinine Est GFR (CKD-EPI)AfAm Est GFR (CKD-EPI)NonAf POC Glucometer 185 192 Random Glucose Calcium COVID-19 ([facility]) Blood Type O POSITIVE Antibody Screen Negative Crossmatch See Detail 03/07/20 03/07/20 03/08/20 16:10 22:10 05:39 WBC RBC Hgb Hct MCV MCH MCHC RDW Plt Count MPV Absolute Neuts (auto) Neutrophils % Lymphocytes % Monocytes % Eosinophils % Basophils % Nucleated RBC % PT with INR INR Sodium Potassium Chloride Carbon Dioxide Anion Gap BUN Creatinine Est GFR (CKD-EPI)AfAm Est GFR (CKD-EPI)NonAf POC Glucometer 291 247 Random Glucose Calcium COVID-19 ([facility]LIE) Not detected Blood Type Antibody Screen Crossmatch 03/08/20 03/08/20 03/08/20 07:08 07:08 07:08 WBC 7.2 RBC 3.88 L Hgb 10.8 L Hct 32.7 L MCV 84.2 MCH 27.9 MCHC 33.1 RDW 15.7 Plt Count 380 MPV 7.2 L Absolute Neuts (auto) 5.2 Neutrophils % 71.5 Lymphocytes % 15.7 Monocytes % 6.7 Eosinophils % 5.4 H Basophils % 0.7 Nucleated RBC % 0 PT with INR 14.30 H INR 1.21 H Sodium 142 Potassium 4.1 Chloride 110 H Carbon Dioxide 25 Anion Gap 7 L BUN 27.8 H Creatinine 1.1 Est GFR (CKD-EPI)AfAm 82.95 Est GFR (CKD-EPI)NonAf 71.57 POC Glucometer Random Glucose 213 H Calcium 8.7 COVID-19 ([facility]LIE) Blood Type Antibody Screen Crossmatch Active Medications Generic Name Dose Route Start Last Admin Trade Name Freq PRN Reason Stop Dose Admin Acetaminophen 650 mg 03/03/20 10:37 03/07/20 16:05 Tylenol - PO 650 mg Q4H PRN Administration FEVER Amino Acids 30 ml 03/03/20 17:30 03/08/20 09:23 Prosource No Carb Liquid Pkt PO Not Given BID@0800,1730 HUGO Artificial Tears 1 drop 03/03/20 10:37 Artificial Tears OU Q6H PRN DRY EYES Aspirin 81 mg 03/04/20 10:00 03/08/20 09:23 Asa - PO Not Given DAILY HUGO Atorvastatin Calcium 20 mg 03/03/20 22:00 03/07/20 21:54 Lipitor - PO 20 mg HS HUGO Administration Carvedilol 12.5 mg 03/03/20 22:00 03/08/20 09:42 Coreg - PO 12.5 mg BID [facility] Administration Digoxin 0.125 mg 03/04/20 10:00 03/08/20 09:41 Lanoxin - PO 0.125 mg DAILY [facility] Administration Docusate Sodium 100 mg 03/03/20 22:00 03/08/20 09:23 Colace - PO Not Given BID [facility] Famotidine 20 mg 03/03/20 22:00 03/08/20 09:24 Pepcid - PO Not Given BID [facility] Gabapentin 300 mg 03/03/20 14:00 03/08/20 05:17 Neurontin - PO Not Given TID [facility] Heparin Sodium (Porcine) 5,000 unit 03/05/20 14:00 03/08/20 05:16 Heparin - SQ Not Given TID [facility] Ertapenem 1 gm/ Sodium 50 mls @ 100 mls/hr 03/04/20 10:00 03/08/20 09:26 Chloride IVPB 100 mls/hr DAILY [facility] Administration Daptomycin 400 mg/ Sodium 50 mls @ 50 mls/hr 03/04/20 10:00 03/07/20 11:26 Chloride IVPB 50 mls/hr DAILY [facility] Administration Protocol Insulin Aspart 1 vial 03/03/20 11:00 03/08/20 06:11 Novolog Vial Sliding Scale - SQ 10 units ACHS [facility] Administration Protocol Insulin Detemir 30 units 03/03/20 22:00 03/07/20 21:55 Levemir Vial SQ Not Given HS [facility] Magnesium Oxide 400 mg 03/03/20 22:00 03/08/20 09:24 Mag-Ox - PO Not Given BID [facility] Multivitamins/Minerals/Vitamin C 1 tab 03/04/20 10:00 03/08/20 09:24 Tab-A-Vit - PO Not Given DAILY [facility] Polyethylene Glycol 17 gm 03/04/20 10:00 03/08/20 09:24 Miralax (For Daily Use) - PO Not Given DAILY [facility] Quetiapine Fumarate 50 mg 03/03/20 22:00 03/07/20 21:53 Seroquel - PO 50 mg HS [facility] Administration Tamsulosin HCl 0.4 mg 03/04/20 08:30 03/08/20 09:23 Flomax - PO Not Given DAILY@0830 [facility] Valsartan 320 mg 03/06/20 10:00 03/08/20 09:42 Diovan - PO 320 mg DAILY [facility] Administration Zinc Sulfate 220 mg 03/04/20 10:00 03/08/20 09:24 Orazinc - PO Not Given DAILY [facility] ASSESSMENT/PLAN: Problem List - Problems (1) Fever Assessment/Plan: fevers resolved Code(s): R50.9 - FEVER, UNSPECIFIED (2) Diabetic foot infection Assessment/Plan: Patient for a right below knee amputation today. on ertapenem and daptomycin Code(s): E11.628 - TYPE 2 DIABETES MELLITUS WITH OTHER SKIN COMPLICATIONS; L08.9 - LOCAL INFECTION OF THE SKIN AND SUBCUTANEOUS TISSUE, UNSP (3) Anemia Assessment/Plan: Anemia of chronic disease no signs of bleeding s/p 1 unit of prbc on 02/24 monitor CBC daily Code(s): D64.9 - ANEMIA, UNSPECIFIED (4) CKD (chronic kidney disease) Assessment/Plan: monitor kidney function trend intake/output and electrolytes Code(s): N18.9 - CHRONIC KIDNEY DISEASE, UNSPECIFIED (5) Congestive heart failure Assessment/Plan: Patient has normal ejection fraction, continue coreg, and digoxin, Stress test completed on 02/09/2020 no signs of volume overload Code(s): I50.9 - HEART FAILURE, UNSPECIFIED Qualifiers: Heart failure type: unspecified (6) Hypertension Assessment/Plan: labile BP currently on coreq 12.5mg bid, digoxin 0.125mg daily Code(s): I10 - ESSENTIAL (PRIMARY) HYPERTENSION (7) Uncontrolled type 2 diabetes mellitus Assessment/Plan: BGMs improved, goal is to maintain fasting bgms<180 tightened sliding scale insulin on levemir 45 units at hs Code(s): E11.65 - TYPE 2 DIABETES MELLITUS WITH HYPERGLYCEMIA (8) DVT prophylaxis Assessment/Plan: heparin tid Code(s): Z29.9 - ENCOUNTER FOR PROPHYLACTIC MEASURES, UNSPECIFIED Visit type - Emergency Visit Emergency Visit: Yes ED Registration Date: 02/03/20 Care time: The patient presented to the Emergency Department on the above date and was hospitalized for further evaluation of their emergent condition. - New Patient This patient is new to me today: No - Critical Care Critical Care patient: No - Discharge Referral Referred to [facility] Med P.C.: No
[2020-03-08] MEDS: DAPTOMYCIN 400 MG in SODIUM CHLORIDE 50 ML IVPB SCH (10:17)
--- NOTE | 2020-03-08 11:44 | OP ---
DATE OF OPERATION: 03/03/2020 PREOPERATIVE DIAGNOSIS: Infected right lower extremity bypass graft. POSTOPERATIVE DIAGNOSIS: Infected right lower extremity bypass graft. PROCEDURE: Right groin removal of infected graft, polytetrafluoroethylene (PTFE), with vacuum-assisted closure (VAC) application. SURGEON: Thien Pineda DO BOTTOMING ROOM INSPECTOR: JEWELS Shields ANESTHESIOLOGIST: Lionel Gore MD ANESTHESIA: General. BLOOD LOSS: 30 mL. FLUID VOLUME REPLACED: 600 INDICATIONS: Patient is a 64-year-old male that comes from the [facility] and he had a femoral [id number] popliteal bypass. Thereafter he developed a groin infection in his right groin which was washed out. Cultures grew out multiple organisms seeding into the PTFE graft and it seems like we need to now remove the PTFE graft from the right groin, wash it out and place a VAC dressing there. Patient's brother was consented for the procedure understanding the risks, benefits and alternatives. He understands the risks of bleeding, infection, clot formation and amputation, which is the loss of limb. He understands that despite doing the bypass for limb salvage for his brother, the bypass is now infected and it is causing him to have fevers and there is an infection in his groin and the bypass graft would need to be removed in order to make sure that the patient does not become septic. PROCEDURE IN DETAIL: Patient was then brought to the operating room, laid on the operating table in the supine manner. The area of the right groin was prepped and draped in a sterile surgical manner. The agnes were removed and the groin was opened. We then went ahead and washed out the groin using a pulse plant protection guard with bacitracin in it. We then clamped the proximal PTFE graft after the anastomosis with the femoral artery and we went ahead and used a 3-0 Prolene and we ran the stitch around in 2 layers and we were able to close the bypass graft. The bypass graft was already clotted. We then removed the portion of the bypass graft in the groin and that was removed and sent off to Pathology. We then irrigated the wound copiously. We then went ahead and placed a white foam over the artery. We placed a black foam for the VAC and we then applied a VAC dressing. At this point, once that was completed, patient tolerated the procedure with no complications. Patient was transferred to PACU in stable condition. THIEN PINEDA DO [id number]
[2020-03-08] MEDS ORDERED: BUPIVACAINE HCL 50 ML ONE (11:55)
--- NOTE | 2020-03-08 12:17 | PN ---
Progress Note (short form) - Note Progress Note: s: unable to obtain hpi, ros due to altered mental status Current Medications Generic Name Dose Route Start Last Admin Trade Name Anitra PRN Reason Stop Dose Admin Acetaminophen 650 mg 03/03/20 10:37 03/07/20 16:05 Tylenol - PO 650 mg Q4H PRN Administration FEVER Amino Acids 30 ml 03/03/20 17:30 03/08/20 09:23 Prosource No Carb Liquid Pkt PO Not Given BID@0800,1730 HUGO Artificial Tears 1 drop 03/03/20 10:37 Artificial Tears OU Q6H PRN DRY EYES Aspirin 81 mg 03/04/20 10:00 03/08/20 09:23 Asa - PO Not Given DAILY [facility]GO Atorvastatin Calcium 20 mg 03/03/20 22:00 03/07/20 21:54 Lipitor - PO 20 mg HS HUGO Administration Carvedilol 12.5 mg 03/03/20 22:00 03/08/20 09:42 Coreg - PO 12.5 mg BID HUGO Administration Digoxin 0.125 mg 03/04/20 10:00 03/08/20 09:41 Lanoxin - PO 0.125 mg DAILY [facility]GO Administration Docusate Sodium 100 mg 03/03/20 22:00 03/08/20 09:23 Colace - PO Not Given BID HUGO Famotidine 20 mg 03/03/20 22:00 03/08/20 09:24 Pepcid - PO Not Given BID HUGO Gabapentin 300 mg 03/03/20 14:00 03/08/20 05:17 Neurontin - PO Not Given TID [facility] Heparin Sodium (Porcine) 5,000 unit 03/05/20 14:00 03/08/20 05:16 Heparin - SQ Not Given TID [facility]GO Ertapenem 1 gm/ Sodium 50 mls @ 100 mls/hr 03/04/20 10:00 03/08/20 09:26 Chloride IVPB 100 mls/hr DAILY [facility] Administration Daptomycin 400 mg/ Sodium 50 mls @ 50 mls/hr 03/04/20 10:00 03/08/20 10:17 Chloride IVPB 50 mls/hr DAILY [facility] Administration Protocol Insulin Aspart 1 vial 03/03/20 11:00 03/08/20 11:13 Novolog Vial Sliding Scale - SQ Not Given ACHS [facility] Protocol Insulin Detemir 30 units 03/03/20 22:00 03/07/20 21:55 Levemir Vial SQ Not Given HS [facility] Magnesium Oxide 400 mg 03/03/20 22:00 03/08/20 09:24 Mag-Ox - PO Not Given BID [facility] Multivitamins/Minerals/Vitamin C 1 tab 03/04/20 10:00 03/08/20 09:24 Tab-A-Vit - PO Not Given DAILY [facility] Polyethylene Glycol 17 gm 03/04/20 10:00 03/08/20 09:24 Miralax (For Daily Use) - PO Not Given DAILY [facility] Quetiapine Fumarate 50 mg 03/03/20 22:00 03/07/20 21:53 Seroquel - PO 50 mg HS [facility] Administration Tamsulosin HCl 0.4 mg 03/04/20 08:30 03/08/20 09:23 Flomax - PO Not Given DAILY@0830 [facility] Valsartan 320 mg 03/06/20 10:00 03/08/20 09:42 Diovan - PO 320 mg DAILY [facility] Administration Zinc Sulfate 220 mg 03/04/20 10:00 03/08/20 09:24 Orazinc - PO Not Given DAILY [facility] Vital Signs Period Temp Pulse Resp BP Sys/Leahy Pulse Ox Last 24 Hr 98.0 F-98.7 F 73-94 16-18 126-161/71-86 96-98 Constitutional: Yes: Well Nourished, No Distress Eyes: No: Sclera Icterus HENT: No: Nasal Congestion Respiratory: Yes: CTA Bilaterally. No: Accessory Muscle Use, Rales, Wheezes Gastrointestinal: Yes: Normal Bowel Sounds. No: Distention, Hepatomegaly, Palpable Mass, Tenderness Cardiovascular: Yes: Regular Rate and Rhythm JVD: No Heart Sounds: Yes: S1, S2. No: Gallop Murmur: No: Systolic Murmur, Diastolic Murmur Edema: No Integumentary: No: Jaundice Neurological: Yes: Alert. No: Seizure Psychiatric: No: Agitated Assessment/Plan echo 01/2020: normal LVEF, nl RV, nl valve function. CXR: ATX vs infiltrate R base, no effusions/congestion mibi 01/2020 mod sized area of inferolateral scar, no ischemia, EF 45% preop CV eval, PAD: -s/p R. Fem-Pop: tolerated surgery well, hemodynamically stable - no cardiac contraindication to BKA planned for tomorrow CAD: - no angina sx's here - preop mibi shows inferolateral scar, no ischemia. mildly reduced EF. - continue statin, aspirin - on digoxin for unclear indication, levels ok here, continue--outpt f/u with prior treating physician DM: -per hospitalist HTN: -improved, cont current meds HPL: -cont statin
--- NOTE | 2020-03-08 13:44 | OP ---
Operative Note - Note: Operative Date: 03/08/20 Pre-Operative Diagnosis: right foot amputation Operation: right below knee amputation Post-Operative Diagnosis: Same as Pre-op Surgeon: Thien Pineda Technical Training Coordinator: Lisette Sanchez Anesthesia: Spinal Estimated Blood Loss (mls): 50 Operative Report Dictated: Yes
--- NOTE | 2020-03-08 14:15 | SURG ---
Surgery Histological Illustrator Note Histological Illustrator: Lisette Sanchez PA-C Date of Service: 03/08/20 Diagnosis: right foot amputation Procedure: right below knee amputation I was present for the entirety of the operative procedure. For further detail, please refer to operative report.
[2020-03-08] MEDS ORDERED: ARTIFICIAL TEARS (POLYVINYL ALCOHOL) OPTH DROPS OU PRN (14:48)
--- NOTE | 2020-03-08 16:18 | PN ---
Progress Note (short form) - Note Progress Note: Surgery: Right Groin vac dressing changed today. Wound base clean, small amout of fibrinous material over anatamosis/graft site. otherwise healing well. No erythema or drainage noted. Reapplied white foam to over anastamosis with black foam n=and pressure at 75mmhg Problem List - Problems (1) Diabetic foot infection Code(s): E11.628 - TYPE 2 DIABETES MELLITUS WITH OTHER SKIN COMPLICATIONS; L08.9 - LOCAL INFECTION OF THE SKIN AND SUBCUTANEOUS TISSUE, UNSP
[2020-03-08] MEDS: ACETAMINOPHEN 325 MG TABLET (FP) PO PRN (16:31)
[2020-03-08] MEDS: ATORVASTATIN CA 20 MG TABLET (FP) PO SCH (22:12)
[2020-03-08] MEDS: QUEtiapine FUMARATE 25 MG TABLET PO SCH (22:14)
[2020-03-08] MEDS: morphine SULFATE 4 MG/ML VIAL IVPUSH PRN (22:16)
[2020-03-08] MEDS: INSULIN (LEVEMIR) 100 UNITS/ML UNITS SQ SCH (22:16)
[2020-03-09] MEDS: HEPARIN NA (PORCINE) 5,000 UNITS/ML 1ML VIAL SQ SCH ×3 (06:13→22:51)
[2020-03-09] MEDS: GABAPENTIN 300 MG CAPSULE PO SCH ×3 (06:13→22:52)
[2020-03-09] MEDS: INSULIN SLIDING SCALE (NOVOLOG) 1 VIAL SQ SCH ×4 (06:14→22:52)
[2020-03-09 08:53] LABS: BASO % 0.3 % (0-2.0); EOS % 1.4 % (0-4.5); HEMATOCRIT 29.6 % (35.4-49); HEMOGLOBIN 9.8 GM/dL (11.7-16.9); LYMPH % 10.1 % (8-40); MCH 27.9 pg (25.7-33.7); MCHC 33.1 g/dl (32.0-35.9); MEAN CELL VOLUME 84.4 fl (80-96); MEAN PLT VOLUME 7.5 fl (7.5-11.1); MONO % 5.5 % (3.8-10.2); NEUT % 82.7 % (42.8-82.8); PLATELET COUNT 391 K/MM3 (134-434); RDW 15.4 % (11.9-15.9); WHITE BLOOD COUNT 11.5 K/mm3 (4.0-10.0)
[2020-03-09] MEDS: AMINO ACIDS/PROTEIN HYDROLYS 30 ML LIQUID.PKT PO SCH ×2 (09:02→17:35)
[2020-03-09] MEDS: TAMSULOSIN HCL 0.4 MG CAP PO SCH (09:02)
[2020-03-09] MEDS: ZINC SULFATE 220 MG CAPSULE (FP) PO SCH (09:03)
[2020-03-09] MEDS: DIGOXIN 0.125 MG TABLET (FP) PO SCH (09:03)
[2020-03-09] MEDS: FAMOTIDINE 20 MG TABLET PO SCH ×2 (09:04→22:50)
[2020-03-09] MEDS: MULTIVITAMINS (DAILY MVI) TABLET (FP) PO SCH (09:04)
[2020-03-09] MEDS: CARVEDILOL 12.5 MG TABLET (FP) PO SCH ×2 (09:04→22:50)
[2020-03-09] MEDS: ASPIRIN 81 MG CHEWABLE TABLETS PO SCH (09:04)
[2020-03-09] MEDS: MAGNESIUM OXIDE 400 MG TABLET (FP) PO SCH ×2 (09:05→22:51)
[2020-03-09] MEDS: VALSARTAN 160 MG TABLET PO SCH (09:05)
[2020-03-09 09:20] LABS: ALBUMIN 1.8 g/dl (3.4-5.0); BILIRUBIN,TOTAL 0.4 mg/dL (0.2-1); BLOOD UREA NITROGEN 22.7 mg/dL (7-18); CALCIUM 8.5 mg/dL (8.5-10.1); MAGNESIUM 1.9 mg/dL (1.8-2.4); POTASSIUM 3.8 mmol/L (3.5-5.1); TOT PROT 6.6 g/dl (6.4-8.2)
[2020-03-09] MEDS: morphine SULFATE 4 MG/ML VIAL IVPUSH PRN ×2 (09:37→17:36)
[2020-03-09] MEDS: DAPTOMYCIN 400 MG in SODIUM CHLORIDE 50 ML IVPB SCH (09:44)
[2020-03-09] MEDS: ERTAPENEM SODIUM 1 GM in SODIUM CHLORIDE 50 ML IVPB SCH (10:48)
[2020-03-09] MEDS ORDERED: INSULIN (NOVOLOG) ASPART 100 UNITS/ML 10ML VIAL ONE (11:48)
--- NOTE | 2020-03-09 12:55 | PN ---
Progress Note (short form) - Note Progress Note: s: no chest pain, palps, dizziness, dyspnea Current Medications Generic Name Dose Route Start Last Admin Trade Name Freq PRN Reason Stop Dose Admin Acetaminophen 650 mg 03/08/20 14:48 03/08/20 16:31 Tylenol - PO 650 mg Q4H PRN Administration FEVER Amino Acids 30 ml 03/08/20 17:30 03/09/20 09:02 Prosource No Carb Liquid Pkt PO 30 ml BID@0800,1730 HUGO Administration Artificial Tears 1 drop 03/08/20 14:48 Artificial Tears OU Q6H PRN DRY EYES Aspirin 81 mg 03/09/20 10:00 03/09/20 09:04 Asa - PO 81 mg DAILY [facility] Administration Atorvastatin Calcium 20 mg 03/08/20 22:00 03/08/20 22:12 Lipitor - PO 20 mg HS [facility] Administration Carvedilol 12.5 mg 03/08/20 22:00 03/09/20 09:04 Coreg - PO 12.5 mg BID [facility] Administration Digoxin 0.125 mg 03/09/20 10:00 03/09/20 09:03 Lanoxin - PO 0.125 mg DAILY [facility] Administration Docusate Sodium 100 mg 03/08/20 22:00 03/08/20 22:14 Colace - PO 100 mg BID [facility] Administration Famotidine 20 mg 03/08/20 22:00 03/09/20 09:04 Pepcid - PO 20 mg BID [facility] Administration Gabapentin 300 mg 03/08/20 22:00 03/09/20 06:13 Neurontin - PO 300 mg TID [facility] Administration Heparin Sodium (Porcine) 5,000 unit 03/08/20 22:00 03/09/20 06:13 Heparin - SQ 5,000 unit TID [facility] Administration Daptomycin 400 mg/ Sodium 50 mls @ 100 mls/hr 03/09/20 10:00 03/09/20 09:44 Chloride IVPB 50 mls/hr DAILY [facility] Administration Protocol Ertapenem 1 gm/ Sodium 50 mls @ 100 mls/hr 03/09/20 10:00 03/09/20 10:48 Chloride IVPB 100 mls/hr DAILY [facility] Administration Insulin Aspart 1 vial 03/08/20 16:30 03/09/20 11:49 Novolog Vial Sliding Scale - SQ 8 units ACHS [facility] Administration Protocol Insulin Detemir 30 units 03/08/20 22:00 03/08/20 22:16 Levemir Vial SQ 30 units HS [facility] Administration Magnesium Oxide 400 mg 03/08/20 22:00 03/09/20 09:05 Mag-Ox - PO 400 mg BID [facility] Administration Morphine Sulfate 4 mg 03/08/20 13:46 03/09/20 09:37 Morphine Sulfate IVPUSH 4 mg Q4H PRN Administration PAIN LEVEL 4 - 6 Multivitamins/Minerals/Vitamin C 1 tab 03/09/20 10:00 03/09/20 09:04 Tab-A-Vit - PO 1 tab DAILY [facility] Administration Polyethylene Glycol 17 gm 03/09/20 10:00 Miralax (For Daily Use) - PO DAILY [facility] Quetiapine Fumarate 50 mg 03/08/20 22:00 03/08/20 22:14 Seroquel - PO 50 mg HS [facility] Administration Tamsulosin HCl 0.4 mg 03/09/20 08:30 03/09/20 09:02 Flomax - PO 0.4 mg DAILY@0830 [facility] Administration Valsartan 320 mg 03/09/20 10:00 03/09/20 09:05 Diovan - PO 320 mg DAILY [facility] Administration Zinc Sulfate 220 mg 03/09/20 10:00 03/09/20 09:03 Orazinc - PO 220 mg DAILY [facility] Administration Vital Signs Period Temp Pulse Resp BP Sys/Leahy Pulse Ox Last 24 Hr 97.9 F-98.4 F 66-93 16-18 89-160/54-86 96-100 Constitutional: Yes: Well Nourished, No Distress Eyes: No: Sclera Icterus HENT: No: Nasal Congestion Respiratory: Yes: CTA Bilaterally. No: Accessory Muscle Use, Rales, Wheezes Gastrointestinal: Yes: Normal Bowel Sounds. No: Distention, Hepatomegaly, Palpable Mass, Tenderness Cardiovascular: Yes: Regular Rate and Rhythm JVD: No Heart Sounds: Yes: S1, S2. No: Gallop Murmur: No: Systolic Murmur, Diastolic Murmur Edema: No Integumentary: No: Jaundice Neurological: Yes: Alert. No: Seizure Psychiatric: No: Agitated Assessment/Plan echo 01/2020: normal LVEF, nl RV, nl valve function. CXR: ATX vs infiltrate R base, no effusions/congestion mibi 01/2020 mod sized area of inferolateral scar, no ischemia, EF 45% PAD: -s/p R. Fem-Pop: tolerated surgery well, hemodynamically stable -s/p BKA 03/08 CAD: - no angina sx's here - preop mibi shows inferolateral scar, no ischemia. mildly reduced EF. - continue statin, aspirin - on digoxin for unclear indication, levels ok here, continue--outpt f/u with prior treating physician DM: -per hospitalist HTN: -improved, cont current meds HPL: -cont statin
--- NOTE | 2020-03-09 13:52 | PN ---
Physical Exam: SUBJECTIVE: Patient seen and examined. awake alert, denies any discomfort at this time. pain is controlled. OBJECTIVE: Patient is a 64 year old male with a significant past medical history of DM, schizophrenia, HTN, HLD, GERD, dementia, EtOH use disorder who had his right knee great toe amputated apx 1 month prior to admission, presents to the ED on 02/03/2020 with right 2nd digit gangrene. At [facility] pt underwent RLE angiogram which revealed right SFA occlusion. He is being followed by vascular surgery and is s/p fem-pop bypass. Right groin wound now with purulent drainage and found to be infected and a wound vac placed. Patient is s/p right below knee amputation on 03/08/2020. ------ dnr/dni per molst form dated and signed on 12/23/2019 covid status: negative as per serology 02/02, 02/10/2020, 03/07/2020 Period Temp Pulse Resp BP Sys/Leahy Pulse Ox Last 24 Hr 97.9 F-98.4 F 66-93 16-18 89-160/54-86 96-100 GENERAL: The patient is awake, alert, in no acute distress. forgetful HEAD: Normal with no signs of trauma. EYES: PERRL, extraocular movements intact, sclera anicteric, conjunctiva clear. No ptosis. ENT: Ears normal, nares patent, oropharynx clear without exudates NECK: Trachea midline, full range of motion, supple. LUNGS: Breath sounds equal HEART: Regular rate and rhythm ABDOMEN: Soft, nontender, nondistended, normoactive bowel sounds right groin wound, surgical agnes intact, mild redness noted around wound. EXTREMITIES: s/p right below knee amputation with immobilizer NEUROLOGICAL: Normal speech, gait not observed. PSYCH: Normal mood, normal affect Laboratory Results - last 24 hr 03/08/20 03/08/20 03/09/20 16:07 22:06 06:10 WBC RBC Hgb Hct MCV MCH MCHC RDW Plt Count MPV Absolute Neuts (auto) Neutrophils % Lymphocytes % Monocytes % Eosinophils % Basophils % Nucleated RBC % Sodium Potassium Chloride Carbon Dioxide Anion Gap BUN Creatinine Est GFR (CKD-EPI)AfAm Est GFR (CKD-EPI)NonAf POC Glucometer 226 272 204 Random Glucose Calcium Magnesium Total Bilirubin AST ALT Alkaline Phosphatase Total Protein Albumin 03/09/20 03/09/20 03/09/20 08:00 08:00 11:12 WBC 11.5 H RBC 3.50 L Hgb 9.8 L Hct 29.6 L MCV 84.4 MCH 27.9 MCHC 33.1 RDW 15.4 Plt Count 391 MPV 7.5 Absolute Neuts (auto) 9.5 H Neutrophils % 82.7 Lymphocytes % 10.1 D Monocytes % 5.5 Eosinophils % 1.4 Basophils % 0.3 Nucleated RBC % 0 Sodium 139 Potassium 3.8 Chloride 107 Carbon Dioxide 26 Anion Gap 6 L BUN 22.7 H Creatinine 1.0 Est GFR (CKD-EPI)AfAm 93.08 Est GFR (CKD-EPI)NonAf 80.31 POC Glucometer 158 Random Glucose 178 H Calcium 8.5 Magnesium 1.9 Total Bilirubin 0.4 AST 23 ALT 17 Alkaline Phosphatase 106 Total Protein 6.6 Albumin 1.8 L Active Medications Generic Name Dose Route Start Last Admin Trade Name Freq PRN Reason Stop Dose Admin Acetaminophen 650 mg 03/08/20 14:48 03/08/20 16:31 Tylenol - PO 650 mg Q4H PRN Administration FEVER Amino Acids 30 ml 03/08/20 17:30 03/09/20 09:02 Prosource No Carb Liquid Pkt PO 30 ml BID@0800,1730 HUGO Administration Artificial Tears 1 drop 03/08/20 14:48 Artificial Tears OU Q6H PRN DRY EYES Aspirin 81 mg 03/09/20 10:00 03/09/20 09:04 Asa - PO 81 mg DAILY [facility] Administration Atorvastatin Calcium 20 mg 03/08/20 22:00 03/08/20 22:12 Lipitor - PO 20 mg HS HUGO Administration Carvedilol 12.5 mg 03/08/20 22:00 03/09/20 09:04 Coreg - PO 12.5 mg BID HUGO Administration Digoxin 0.125 mg 03/09/20 10:00 03/09/20 09:03 Lanoxin - PO 0.125 mg DAILY [facility] Administration Docusate Sodium 100 mg 03/08/20 22:00 03/08/20 22:14 Colace - PO 100 mg BID [facility]GO Administration Famotidine 20 mg 03/08/20 22:00 03/09/20 09:04 Pepcid - PO 20 mg BID HUGO Administration Gabapentin 300 mg 03/08/20 22:00 03/09/20 06:13 Neurontin - PO 300 mg TID [facility] Administration Heparin Sodium (Porcine) 5,000 unit 03/08/20 22:00 03/09/20 06:13 Heparin - SQ 5,000 unit TID [facility] Administration Daptomycin 400 mg/ Sodium 50 mls @ 100 mls/hr 03/09/20 10:00 03/09/20 09:44 Chloride IVPB 50 mls/hr DAILY [facility] Administration Protocol Ertapenem 1 gm/ Sodium 50 mls @ 100 mls/hr 03/09/20 10:00 03/09/20 10:48 Chloride IVPB 100 mls/hr DAILY [facility] Administration Insulin Aspart 1 vial 03/08/20 16:30 03/09/20 11:49 Novolog Vial Sliding Scale - SQ 8 units ACHS [facility] Administration Protocol Insulin Detemir 30 units 03/08/20 22:00 03/08/20 22:16 Levemir Vial SQ 30 units HS [facility] Administration Magnesium Oxide 400 mg 03/08/20 22:00 03/09/20 09:05 Mag-Ox - PO 400 mg BID [facility] Administration Morphine Sulfate 4 mg 03/08/20 13:46 03/09/20 09:37 Morphine Sulfate IVPUSH 4 mg Q4H PRN Administration PAIN LEVEL 4 - 6 Multivitamins/Minerals/Vitamin C 1 tab 03/09/20 10:00 03/09/20 09:04 Tab-A-Vit - PO 1 tab DAILY [facility] Administration Polyethylene Glycol 17 gm 03/09/20 10:00 Miralax (For Daily Use) - PO DAILY [facility] Quetiapine Fumarate 50 mg 03/08/20 22:00 03/08/20 22:14 Seroquel - PO 50 mg HS [facility] Administration Tamsulosin HCl 0.4 mg 03/09/20 08:30 03/09/20 09:02 Flomax - PO 0.4 mg DAILY@0830 [facility] Administration Valsartan 320 mg 03/09/20 10:00 03/09/20 09:05 Diovan - PO 320 mg DAILY [facility] Administration Zinc Sulfate 220 mg 03/09/20 10:00 03/09/20 09:03 Orazinc - PO 220 mg DAILY [facility] Administration ASSESSMENT/PLAN: Problem List - Problems (1) Fever Assessment/Plan: fevers resolved Code(s): R50.9 - FEVER, UNSPECIFIED (2) Diabetic foot infection Assessment/Plan: patient is s/p below right knee amputation on ertapenem and daptomycin Code(s): E11.628 - TYPE 2 DIABETES MELLITUS WITH OTHER SKIN COMPLICATIONS; L08.9 - LOCAL INFECTION OF THE SKIN AND SUBCUTANEOUS TISSUE, UNSP (3) Anemia Assessment/Plan: Anemia of chronic disease no signs of bleeding s/p 1 unit of prbc on 02/24 monitor CBC daily Code(s): D64.9 - ANEMIA, UNSPECIFIED (4) CKD (chronic kidney disease) Assessment/Plan: monitor kidney function trend intake/output and electrolytes Code(s): N18.9 - CHRONIC KIDNEY DISEASE, UNSPECIFIED (5) Congestive heart failure Assessment/Plan: Patient has normal ejection fraction, continue coreg, and digoxin, Stress test completed on 02/09/2020 no signs of volume overload Code(s): I50.9 - HEART FAILURE, UNSPECIFIED Qualifiers: Heart failure type: unspecified (6) Hypertension Assessment/Plan: labile BP currently on coreq 12.5mg bid, digoxin 0.125mg daily Code(s): I10 - ESSENTIAL (PRIMARY) HYPERTENSION (7) Uncontrolled type 2 diabetes mellitus Assessment/Plan: BGMs improved, goal is to maintain fasting bgms<180 tightened sliding scale insulin on levemir 45 units at hs Code(s): E11.65 - TYPE 2 DIABETES MELLITUS WITH HYPERGLYCEMIA (8) DVT prophylaxis Assessment/Plan: heparin tid Code(s): Z29.9 - ENCOUNTER FOR PROPHYLACTIC MEASURES, UNSPECIFIED Visit type - Emergency Visit Emergency Visit: Yes ED Registration Date: 02/03/20 Care time: The patient presented to the Emergency Department on the above date and was hospitalized for further evaluation of their emergent condition. - New Patient This patient is new to me today: No - Critical Care Critical Care patient: No - Discharge Referral Referred to [facility] Med P.C.: No
--- NOTE | 2020-03-09 13:54 | PN ---
Progress Note (short form) - Note Progress Note: SURGERY 64yo M s/p Rt BKA POD 1, pt seen and examined at bedside. Pt denies significant pain to the leg. Wound vac in place over Rt groin. Afebrile overnight. Last Vital Signs Temp Pulse Resp BP Pulse Ox 98.4 F 88 18 140/86 98 03/09/20 06:00 03/09/20 10:00 03/09/20 10:00 03/09/20 10:00 03/09/20 10:00 CBC, BMP 03/09/20 08:00 03/09/20 08:00 PE: Gen: Awake and alert Resp: breathing comfortably RLE: vac dressing in place with good seal. Rt bka dressing in place with knee immobilizer. Problem List - Problems (1) Infected surgical wound Assessment/Plan: Plan -Vac change tomorrow 03/10, possible take down of BKA dressing. -continue VAC -abx as per ID -dvt ppx Code(s): T81.49XA - INFECTION FOLLOWING A PROCEDURE, OTHER SURGICAL SITE, INIT
--- NOTE | 2020-03-09 14:34 | PN ---
Progress Note (short form) - Note Progress Note: s/p BKA s/p washout with infected graft removal and vac placement Vital Signs Period Temp Pulse Resp BP Sys/Leahy Pulse Ox Last 24 Hr 98.0 F-98.4 F 66-93 16-18 104-160/58-86 96-100 cor-rrr lungs clear abd soft,nt ext binder and dressing Right leg vac right groin- no erythema CBC, BMP 03/09/20 08:00 03/09/20 08:00 Laboratory Tests 02/28/20 03/05/20 07:25 09:08 Creatine Kinase 36 34 Microbiology 03/03/20 09:24 Groin - Right Gram Stain - Final 03/03/20 09:24 Groin - Right Wound Culture - Final Vr Ec Faecium Mr S Aureus Yeast Like Organism 02/26/20 14:37 Groin - Right Gram Stain - Final 02/26/20 14:37 Groin - Right Wound Culture - Final Klebsiella Pneumoniae - Esbl Vr Ec Faecium Enterococcus Faecalis 02/24/20 18:00 Blood - Peripheral Venous Blood Culture - Final NO GROWTH AFTER 5 DAYS INCUBATION 02/24/20 18:15 Blood - Peripheral Venous Blood Culture - Final NO GROWTH AFTER 5 DAYS INCUBATION 02/24/20 15:30 Groin - Right Gram Stain - Final 02/24/20 15:30 Groin - Right Wound Culture - Final Klebsiella Pneumoniae - Esbl Vr Ec Faecium 02/21/20 15:23 Blood - Peripheral Venous Blood Culture - Final NO GROWTH AFTER 5 DAYS INCUBATION 02/21/20 15:35 Blood - Peripheral Venous Blood Culture - Final NO GROWTH AFTER 5 DAYS INCUBATION 02/24/20 00:30 Urine - Urine - Catheterized Urine Culture - Final NO GROWTH OBTAINED 02/05/20 07:50 Blood - Peripheral Venous Blood Culture - Final NO GROWTH AFTER 5 DAYS INCUBATION 02/05/20 08:08 Blood - Peripheral Venous Blood Culture - Final NO GROWTH AFTER 5 DAYS INCUBATION 02/03/20 13:05 Blood - Peripheral Venous Blood Culture - Final NO GROWTH AFTER 5 DAYS INCUBATION 02/03/20 13:05 Blood - Peripheral Venous Blood Culture - Final NO GROWTH AFTER 5 DAYS INCUBATION 02/03/20 16:20 Toe - Right Hallux Gram Stain - Final 02/03/20 16:20 Toe - Right Hallux Wound Culture - Final Klebsiella Pneumoniae - Esbl Proteus Mirabilis Enterococcus Faecalis crp 8.3 a/p s/p BKA s/p removal infected graft contact isolation for MDRO continue daptomycin and ertapenem PVD dementia schizophrenia repeat crp trending down Problem List - Problems (1) Fever Code(s): R50.9 - FEVER, UNSPECIFIED (2) Diabetic foot infection Code(s): E11.628 - TYPE 2 DIABETES MELLITUS WITH OTHER SKIN COMPLICATIONS; L08.9 - LOCAL INFECTION OF THE SKIN AND SUBCUTANEOUS TISSUE, UNSP (3) PVD (peripheral vascular disease) Code(s): I73.9 - PERIPHERAL VASCULAR DISEASE, UNSPECIFIED (4) CKD (chronic kidney disease) Code(s): N18.9 - CHRONIC KIDNEY DISEASE, UNSPECIFIED (5) Anemia Code(s): D64.9 - ANEMIA, UNSPECIFIED
[2020-03-09] MEDS: DOCUSATE SODIUM 100 MG CAPSULE (FP) PO SCH ×2 (14:47→22:50)
--- NOTE | 2020-03-09 16:38 | PN ---
Progress Note (short form) - Note Progress Note: Post op day#1.S/p R BKA under spinal anesthesia uneventful.Patient stable and c/o some pain for which he is on medication.No any anesthesia related problem.Patient Dc from the anesthesia care.
[2020-03-09] MEDS: POLYETHYLENE GLYCOL 3350 119 GM BTL PO SCH (17:35)
--- NOTE | 2020-03-09 17:52 | PATH ---
Surgical Pathology Report Patient Name: OZZIE UMANZOR Med. Rec. #: [id number] /Age/Gender: 1955 (Age: 64) / M Account: [id number] Location: [address] [place] [address]/[facility] Taken: 03/03/2020 Received: 03/03/2020 Reported: 03/09/2020 Physicians: Davis Thornton Specimen(s) Received FEMORAL GRAFT Clinical History Necrotizing cellulitis, gangrene Final Diagnosis FEMORAL GRAFT, REMOVAL: GRAFT MATERIAL. MACROSCOPIC DIAGNOSIS. Electronically Signed Sima Rico M.D. Gross Description Received in formalin labeled "femoral graft," is a 2.5 cm in length albarran, tubular portion of graft material. No soft tissue is present. No sections are submitted, gross only. 03/04/2020 saudi03/04/2020
[2020-03-09] MEDS: ATORVASTATIN CA 20 MG TABLET (FP) PO SCH (22:50)
[2020-03-09] MEDS: QUEtiapine FUMARATE 25 MG TABLET PO SCH (22:50)
[2020-03-09] MEDS: INSULIN (LEVEMIR) 100 UNITS/ML UNITS SQ SCH (22:51)
[2020-03-10] MEDS: GABAPENTIN 300 MG CAPSULE PO SCH ×3 (06:25→22:58)
[2020-03-10] MEDS: HEPARIN NA (PORCINE) 5,000 UNITS/ML 1ML VIAL SQ SCH ×3 (06:25→22:57)
[2020-03-10] MEDS: INSULIN SLIDING SCALE (NOVOLOG) 1 VIAL SQ SCH ×4 (06:25→23:03)
[2020-03-10] MEDS: TAMSULOSIN HCL 0.4 MG CAP PO SCH (08:45)
[2020-03-10] MEDS: AMINO ACIDS/PROTEIN HYDROLYS 30 ML LIQUID.PKT PO SCH ×2 (08:45→16:58)
[2020-03-10 09:10] LABS: BASO % 0.5 % (0-2.0); EOS % 1.4 % (0-4.5); HEMATOCRIT 30.2 % (35.4-49); LYMPH % 12.6 % (8-40); MCH 27.9 pg (25.7-33.7); MCHC 33.1 g/dl (32.0-35.9); MEAN CELL VOLUME 84.4 fl (80-96); MEAN PLT VOLUME 7.5 fl (7.5-11.1); MONO % 8.2 % (3.8-10.2); NEUT % 77.3 % (42.8-82.8); PLATELET COUNT 381 K/MM3 (134-434); RBC 3.57 M/mm3 (4.00-5.60); RDW 15.1 % (11.9-15.9); WHITE BLOOD COUNT 10.3 K/mm3 (4.0-10.0)
[2020-03-10] MEDS: FAMOTIDINE 20 MG TABLET PO SCH ×2 (09:12→22:57)
[2020-03-10] MEDS: ZINC SULFATE 220 MG CAPSULE (FP) PO SCH (09:12)
[2020-03-10] MEDS: DOCUSATE SODIUM 100 MG CAPSULE (FP) PO SCH ×2 (09:12→22:57)
[2020-03-10] MEDS: DIGOXIN 0.125 MG TABLET (FP) PO SCH (09:12)
[2020-03-10] MEDS: ASPIRIN 81 MG CHEWABLE TABLETS PO SCH (09:13)
[2020-03-10] MEDS: CARVEDILOL 12.5 MG TABLET (FP) PO SCH ×2 (09:13→22:56)
[2020-03-10] MEDS: MAGNESIUM OXIDE 400 MG TABLET (FP) PO SCH ×2 (09:14→22:58)
[2020-03-10] MEDS: POLYETHYLENE GLYCOL 3350 119 GM BTL PO SCH (09:14)
[2020-03-10] MEDS: VALSARTAN 160 MG TABLET PO SCH (09:14)
[2020-03-10] MEDS: MULTIVITAMINS (DAILY MVI) TABLET (FP) PO SCH (09:19)
[2020-03-10 09:57] LABS: POTASSIUM 3.9 mmol/L (3.5-5.1)
[2020-03-10 10:05] LABS: ALBUMIN 1.9 g/dl (3.4-5.0); BLOOD UREA NITROGEN 19.1 mg/dL (7-18); CALCIUM 8.7 mg/dL (8.5-10.1); TOT PROT 7.1 g/dl (6.4-8.2)
[2020-03-10] MEDS ORDERED: INSULIN (NOVOLOG) ASPART 100 UNITS/ML 10ML VIAL ONE (11:06)
[2020-03-10] MEDS: DAPTOMYCIN 400 MG in SODIUM CHLORIDE 50 ML IVPB SCH (11:09)
[2020-03-10 11:11] LABS: BILIRUBIN,TOTAL 0.4 mg/dL (0.2-1)
--- NOTE | 2020-03-10 11:56 | PN ---
Progress Note (short form) - Note Progress Note: s: confused Current Medications Generic Name Dose Route Start Last Admin Trade Name Freq PRN Reason Stop Dose Admin Acetaminophen 650 mg 03/08/20 14:48 03/08/20 16:31 Tylenol - PO 650 mg Q4H PRN Administration FEVER Amino Acids 30 ml 03/08/20 17:30 03/10/20 08:45 Prosource No Carb Liquid Pkt PO 30 ml BID@0800,1730 HUGO Administration Artificial Tears 1 drop 03/08/20 14:48 Artificial Tears OU Q6H PRN DRY EYES Aspirin 81 mg 03/09/20 10:00 03/10/20 09:13 Asa - PO 81 mg DAILY HUGO Administration Atorvastatin Calcium 20 mg 03/08/20 22:00 03/09/20 22:50 Lipitor - PO 20 mg HS HUGO Administration Carvedilol 12.5 mg 03/08/20 22:00 03/10/20 09:13 Coreg - PO 12.5 mg BID HUGO Administration Digoxin 0.125 mg 03/09/20 10:00 03/10/20 09:12 Lanoxin - PO 0.125 mg DAILY HUGO Administration Docusate Sodium 100 mg 03/08/20 22:00 03/10/20 09:12 Colace - PO 100 mg BID HUGO Administration Famotidine 20 mg 03/08/20 22:00 03/10/20 09:12 Pepcid - PO 20 mg BID HUGO Administration Gabapentin 300 mg 03/08/20 22:00 03/10/20 06:25 Neurontin - PO 300 mg TID HUGO Administration Heparin Sodium (Porcine) 5,000 unit 03/08/20 22:00 03/10/20 06:25 Heparin - SQ 5,000 unit TID HUGO Administration Daptomycin 400 mg/ Sodium 50 mls @ 100 mls/hr 03/09/20 10:00 03/10/20 11:09 Chloride IVPB 100 mls/hr DAILY HUGO Administration Protocol Ertapenem 1 gm/ Sodium 50 mls @ 100 mls/hr 03/09/20 10:00 03/09/20 10:48 Chloride IVPB 100 mls/hr DAILY HUGO Administration Insulin Aspart 1 vial 03/08/20 16:30 03/10/20 11:11 Novolog Vial Sliding Scale - SQ 10 units ACHS HUGO Administration Protocol Insulin Detemir 30 units 03/08/20 22:00 03/09/20 22:51 Levemir Vial SQ 30 units HS HUGO Administration Magnesium Oxide 400 mg 03/08/20 22:00 03/10/20 09:14 Mag-Ox - PO 400 mg BID HUGO Administration Morphine Sulfate 4 mg 03/08/20 13:46 03/09/20 17:36 Morphine Sulfate IVPUSH 4 mg Q4H PRN Administration PAIN LEVEL 4 - 6 Multivitamins/Minerals/Vitamin C 1 tab 03/09/20 10:00 03/10/20 09:19 Tab-A-Vit - PO 1 tab DAILY HUGO Administration Polyethylene Glycol 17 gm 03/09/20 10:00 03/10/20 09:14 Miralax (For Daily Use) - PO 17 gm DAILY HUGO Administration Quetiapine Fumarate 50 mg 03/08/20 22:00 03/09/20 22:50 Seroquel - PO 50 mg HS HUGO Administration Tamsulosin HCl 0.4 mg 03/09/20 08:30 03/10/20 08:45 Flomax - PO 0.4 mg DAILY@0830 HUGO Administration Valsartan 320 mg 03/09/20 10:00 03/10/20 09:14 Diovan - PO 320 mg DAILY HUGO Administration Zinc Sulfate 220 mg 03/09/20 10:00 03/10/20 09:12 Orazinc - PO 220 mg DAILY HUGO Administration Vital Signs Period Temp Pulse Resp BP Sys/Leahy Pulse Ox Last 24 Hr 97.8 F-99.5 F 87-101 16-18 139-164/75-85 95-100 Constitutional: Yes: Well Nourished, No Distress Eyes: No: Sclera Icterus HENT: No: Nasal Congestion Respiratory: Yes: CTA Bilaterally. No: Accessory Muscle Use, Rales, Wheezes Gastrointestinal: Yes: Normal Bowel Sounds. No: Distention, Hepatomegaly, Palpable Mass, Tenderness Cardiovascular: Yes: Regular Rate and Rhythm JVD: No Heart Sounds: Yes: S1, S2. No: Gallop Murmur: No: Systolic Murmur, Diastolic Murmur Edema: No Integumentary: No: Jaundice Neurological: Yes: Alert. No: Seizure Psychiatric: No: Agitated CBC, BMP 03/10/20 08:10 03/10/20 08:10 Assessment/Plan echo 01/2020: normal LVEF, nl RV, nl valve function. CXR: ATX vs infiltrate R base, no effusions/congestion mibi 01/2020 mod sized area of inferolateral scar, no ischemia, EF 45% Post op CV eval, PAD: -s/p R. Fem-Pop: tolerated surgery well, hemodynamically stable CAD: - no angina sx's here - preop mibi shows inferolateral scar, no ischemia. mildly reduced EF. - continue statin, aspirin - on digoxin for unclear indication, levels ok here, continue--outpt f/u with prior treating physician DM: -per hospitalist HTN: -improved, cont current meds HPL: -cont statin
[2020-03-10] MEDS: ERTAPENEM SODIUM 1 GM in SODIUM CHLORIDE 50 ML IVPB SCH (12:09)
[2020-03-10] MEDS: morphine SULFATE 4 MG/ML VIAL IVPUSH PRN ×2 (12:39→22:59)
--- NOTE | 2020-03-10 15:22 | PN ---
Physical Exam: SUBJECTIVE: Patient seen and examined. denies any malaise. having some pain of right leg. OBJECTIVE: Patient is a 64 year old male with a significant past medical history of DM, schizophrenia, HTN, HLD, GERD, dementia, EtOH use disorder who had his right knee great toe amputated apx 1 month prior to admission, presents to the ED on 02/03/2020 with right 2nd digit gangrene. At [facility] pt underwent RLE angiogram which revealed right SFA occlusion. He is being followed by vascular surgery and is s/p fem-pop bypass. Right groin wound now with purulent drainage and found to be infected and a wound vac placed. Patient is s/p right below knee amputation on 03/08/2020. ------ dnr/dni per molst form dated and signed on 12/23/2019 covid status: negative as per serology 02/02, 02/10/2020, 03/07/2020 Period Temp Pulse Resp BP Sys/Leahy Pulse Ox Last 24 Hr 97.8 F-99.3 F 87-101 16-18 148-164/75-85 95-100 GENERAL: The patient is awake, alert, in no acute distress. forgetful HEAD: Normal with no signs of trauma. EYES: PERRL, extraocular movements intact, sclera anicteric, conjunctiva clear. No ptosis. ENT: Ears normal, nares patent, oropharynx clear without exudates NECK: Trachea midline, full range of motion, supple. LUNGS: Breath sounds equal HEART: Regular rate and rhythm ABDOMEN: Soft, nontender, nondistended, normoactive bowel sounds right groin wound, surgical agnes intact, mild redness noted around wound. EXTREMITIES: s/p right below knee amputation with immobilizer NEUROLOGICAL: Normal speech, gait not observed. PSYCH: Normal mood, normal affect Laboratory Results - last 24 hr 03/09/20 03/09/20 03/10/20 17:41 22:48 06:20 WBC RBC Hgb Hct MCV MCH MCHC RDW Plt Count MPV Absolute Neuts (auto) Neutrophils % Lymphocytes % Monocytes % Eosinophils % Basophils % Nucleated RBC % Sodium Potassium Chloride Carbon Dioxide Anion Gap BUN Creatinine Est GFR (CKD-EPI)AfAm Est GFR (CKD-EPI)NonAf POC Glucometer 248 230 154 Random Glucose Calcium Magnesium Total Bilirubin AST ALT Alkaline Phosphatase Total Protein Albumin 03/10/20 03/10/20 03/10/20 08:10 08:10 11:10 WBC 10.3 H RBC 3.57 L Hgb 10.0 L Hct 30.2 L MCV 84.4 MCH 27.9 MCHC 33.1 RDW 15.1 Plt Count 381 MPV 7.5 Absolute Neuts (auto) 7.9 Neutrophils % 77.3 Lymphocytes % 12.6 D Monocytes % 8.2 Eosinophils % 1.4 Basophils % 0.5 Nucleated RBC % 0 Sodium 140 Potassium 3.9 Chloride 107 Carbon Dioxide 29 Anion Gap 4 L BUN 19.1 H Creatinine 1.0 Est GFR (CKD-EPI)AfAm 93.08 Est GFR (CKD-EPI)NonAf 80.31 POC Glucometer 220 Random Glucose 88 Calcium 8.7 Magnesium 2.0 Total Bilirubin 0.4 AST 19 ALT 15 Alkaline Phosphatase 88 Total Protein 7.1 Albumin 1.9 L Active Medications Generic Name Dose Route Start Last Admin Trade Name Freq PRN Reason Stop Dose Admin Acetaminophen 650 mg 03/08/20 14:48 03/08/20 16:31 Tylenol - PO 650 mg Q4H PRN Administration FEVER Amino Acids 30 ml 03/08/20 17:30 03/10/20 08:45 Prosource No Carb Liquid Pkt PO 30 ml BID@0800,1730 HUGO Administration Artificial Tears 1 drop 03/08/20 14:48 Artificial Tears OU Q6H PRN DRY EYES Aspirin 81 mg 03/09/20 10:00 03/10/20 09:13 Asa - PO 81 mg DAILY HUGO Administration Atorvastatin Calcium 20 mg 03/08/20 22:00 03/09/20 22:50 Lipitor - PO 20 mg HS HUGO Administration Carvedilol 12.5 mg 03/08/20 22:00 03/10/20 09:13 Coreg - PO 12.5 mg BID HUGO Administration Digoxin 0.125 mg 03/09/20 10:00 03/10/20 09:12 Lanoxin - PO 0.125 mg DAILY HUGO Administration Docusate Sodium 100 mg 03/08/20 22:00 03/10/20 09:12 Colace - PO 100 mg BID HUGO Administration Famotidine 20 mg 03/08/20 22:00 03/10/20 09:12 Pepcid - PO 20 mg BID HUGO Administration Gabapentin 300 mg 03/08/20 22:00 03/10/20 14:28 Neurontin - PO 300 mg TID HUGO Administration Heparin Sodium (Porcine) 5,000 unit 03/08/20 22:00 03/10/20 14:32 Heparin - SQ 5,000 unit TID HUGO Administration Daptomycin 400 mg/ Sodium 50 mls @ 100 mls/hr 03/09/20 10:00 03/10/20 11:09 Chloride IVPB 100 mls/hr DAILY HUGO Administration Protocol Ertapenem 1 gm/ Sodium 50 mls @ 100 mls/hr 03/09/20 10:00 03/10/20 12:09 Chloride IVPB 100 mls/hr DAILY HUGO Administration Insulin Aspart 1 vial 03/08/20 16:30 03/10/20 11:11 Novolog Vial Sliding Scale - SQ 10 units ACHS HUGO Administration Protocol Insulin Detemir 30 units 03/08/20 22:00 03/09/20 22:51 Levemir Vial SQ 30 units HS HUGO Administration Magnesium Oxide 400 mg 03/08/20 22:00 03/10/20 09:14 Mag-Ox - PO 400 mg BID HUGO Administration Morphine Sulfate 4 mg 03/08/20 13:46 03/10/20 12:39 Morphine Sulfate IVPUSH 4 mg Q4H PRN Administration PAIN LEVEL 4 - 6 Multivitamins/Minerals/Vitamin C 1 tab 03/09/20 10:00 03/10/20 09:19 Tab-A-Vit - PO 1 tab DAILY HUGO Administration Polyethylene Glycol 17 gm 03/09/20 10:00 03/10/20 09:14 Miralax (For Daily Use) - PO 17 gm DAILY HUGO Administration Quetiapine Fumarate 50 mg 03/08/20 22:00 03/09/20 22:50 Seroquel - PO 50 mg HS HUGO Administration Tamsulosin HCl 0.4 mg 03/09/20 08:30 03/10/20 08:45 Flomax - PO 0.4 mg DAILY@0830 HUGO Administration Valsartan 320 mg 03/09/20 10:00 03/10/20 09:14 Diovan - PO 320 mg DAILY HUGO Administration Zinc Sulfate 220 mg 03/09/20 10:00 03/10/20 09:12 Orazinc - PO 220 mg DAILY HUGO Administration ASSESSMENT/PLAN: Problem List - Problems (1) Fever Assessment/Plan: fevers resolved Code(s): R50.9 - FEVER, UNSPECIFIED (2) Diabetic foot infection Assessment/Plan: patient is s/p below right knee amputation on ertapenem and daptomycin Code(s): E11.628 - TYPE 2 DIABETES MELLITUS WITH OTHER SKIN COMPLICATIONS; L08.9 - LOCAL INFECTION OF THE SKIN AND SUBCUTANEOUS TISSUE, UNSP (3) Anemia Assessment/Plan: Anemia of chronic disease no signs of bleeding s/p 1 unit of prbc on 02/24 monitor CBC daily Code(s): D64.9 - ANEMIA, UNSPECIFIED (4) CKD (chronic kidney disease) Assessment/Plan: monitor kidney function trend intake/output and electrolytes Code(s): N18.9 - CHRONIC KIDNEY DISEASE, UNSPECIFIED (5) Congestive heart failure Assessment/Plan: Patient has normal ejection fraction, continue coreg, and digoxin, Stress test completed on 02/09/2020 no signs of volume overload Code(s): I50.9 - HEART FAILURE, UNSPECIFIED Qualifiers: Heart failure type: unspecified (6) Hypertension Assessment/Plan: labile BP currently on coreq 12.5mg bid, digoxin 0.125mg daily Code(s): I10 - ESSENTIAL (PRIMARY) HYPERTENSION (7) Uncontrolled type 2 diabetes mellitus Assessment/Plan: BGMs improved, goal is to maintain fasting bgms<180 tightened sliding scale insulin on levemir 45 units at hs Code(s): E11.65 - TYPE 2 DIABETES MELLITUS WITH HYPERGLYCEMIA (8) DVT prophylaxis Assessment/Plan: heparin tid Code(s): Z29.9 - ENCOUNTER FOR PROPHYLACTIC MEASURES, UNSPECIFIED Visit type - Emergency Visit Emergency Visit: Yes ED Registration Date: 02/03/20 Care time: The patient presented to the Emergency Department on the above date and was hospitalized for further evaluation of their emergent condition. - New Patient This patient is new to me today: No - Critical Care Critical Care patient: No - Discharge Referral Referred to [facility] Med P.C.: No
--- NOTE | 2020-03-10 16:34 | PROC ---
VAC Application - Indications Surgical A decision was made to utilize Negative Pressure Therapy (VAC or Veraflo) to assist in: expedite wound closure through promotion of granulation tissue formation and/or help with debridement of fibrinous slough thus decreasing need for serial debridements. - Wound description Wound location: Other (right groin) Length (cm): 4.5 Width (cm): 3 Depth (cm): 2 Wound area (sq cm): 13.50 Wound Description: Muscle exposed: Yes (ptfe graft exposed) - Device VAC Selection: NPT - Procedure Area cleansed. Prepped/draped. Black foam tailored to fit just inside of wound borders to encourage wound contracture. An occlusive dressing applied. Suction disc placed in location so as not to be uncomfortable for the patient or cause any pressure point (foam bridge to hip as necessary). Good seal as verified by complete foam collapse and no leak on unit monitor. Pressure set to 125 mmHg, continuous. If using Veraflo: Settings: Soak time: 2 mins Volume: 8mL Frequency: Every 2 hours Dressing changes: --Sat - CPT Code CPT code: [id number] <50 sq cm
[2020-03-10] MEDS: QUEtiapine FUMARATE 25 MG TABLET PO SCH (22:57)
[2020-03-10] MEDS: ATORVASTATIN CA 20 MG TABLET (FP) PO SCH (22:57)
[2020-03-10] MEDS: INSULIN (LEVEMIR) 100 UNITS/ML UNITS SQ SCH (23:00)
[2020-03-11] MEDS: HEPARIN NA (PORCINE) 5,000 UNITS/ML 1ML VIAL SQ SCH ×3 (06:36→22:30)
[2020-03-11] MEDS: GABAPENTIN 300 MG CAPSULE PO SCH ×3 (06:36→22:30)
[2020-03-11] MEDS: INSULIN SLIDING SCALE (NOVOLOG) 1 VIAL SQ SCH ×4 (06:37→22:30)
[2020-03-11] MEDS ORDERED: INSULIN (NOVOLOG) ASPART 100 UNITS/ML 10ML VIAL ONE (06:48)
[2020-03-11 08:56] LABS: BASO % 0.5 % (0-2.0); EOS % 1.7 % (0-4.5); HEMATOCRIT 28.2 % (35.4-49); HEMOGLOBIN 9.3 GM/dL (11.7-16.9); LYMPH % 16.6 % (8-40); MCH 27.7 pg (25.7-33.7); MEAN PLT VOLUME 7.6 fl (7.5-11.1); MONO % 7.6 % (3.8-10.2); NEUT % 73.6 % (42.8-82.8); PLATELET COUNT 318 K/MM3 (134-434); RBC 3.35 M/mm3 (4.00-5.60); RDW 15.4 % (11.9-15.9)
[2020-03-11] MEDS: TAMSULOSIN HCL 0.4 MG CAP PO SCH (09:00)
[2020-03-11] MEDS: AMINO ACIDS/PROTEIN HYDROLYS 30 ML LIQUID.PKT PO SCH ×2 (09:15→16:50)
[2020-03-11 09:28] LABS: POTASSIUM 3.8 mmol/L (3.5-5.1)
[2020-03-11 09:51] LABS: ALBUMIN 1.6 g/dl (3.4-5.0); BILIRUBIN,TOTAL 0.4 mg/dL (0.2-1); BLOOD UREA NITROGEN 27.6 mg/dL (7-18); CALCIUM 8.7 mg/dL (8.5-10.1); CREATININE 1.2 mg/dL (0.55-1.3); MAGNESIUM 2.2 mg/dL (1.8-2.4); TOT PROT 6.6 g/dl (6.4-8.2)
[2020-03-11] MEDS: ZINC SULFATE 220 MG CAPSULE (FP) PO SCH (10:15)
[2020-03-11] MEDS: DIGOXIN 0.125 MG TABLET (FP) PO SCH (10:15)
[2020-03-11] MEDS: DOCUSATE SODIUM 100 MG CAPSULE (FP) PO SCH ×2 (10:15→22:30)
[2020-03-11] MEDS: CARVEDILOL 12.5 MG TABLET (FP) PO SCH ×2 (10:15→22:30)
[2020-03-11] MEDS: MULTIVITAMINS (DAILY MVI) TABLET (FP) PO SCH (10:16)
[2020-03-11] MEDS: FAMOTIDINE 20 MG TABLET PO SCH ×2 (10:16→22:30)
[2020-03-11] MEDS: ASPIRIN 81 MG CHEWABLE TABLETS PO SCH (10:16)
[2020-03-11] MEDS: MAGNESIUM OXIDE 400 MG TABLET (FP) PO SCH ×2 (10:17→22:30)
[2020-03-11] MEDS: VALSARTAN 160 MG TABLET PO SCH (10:17)
[2020-03-11] MEDS: DAPTOMYCIN 400 MG in SODIUM CHLORIDE 50 ML IVPB SCH (10:17)
[2020-03-11] MEDS: POLYETHYLENE GLYCOL 3350 119 GM BTL PO SCH (10:18)
[2020-03-11] MEDS: ERTAPENEM SODIUM 1 GM in SODIUM CHLORIDE 50 ML IVPB SCH (11:54)
--- NOTE | 2020-03-11 12:54 | PN ---
Physical Exam: SUBJECTIVE: Patient seen and examined, in no acute distress. OBJECTIVE: Patient is a 64 year old male with a significant past medical history of DM, schizophrenia, HTN, HLD, GERD, dementia, EtOH use disorder who had his right knee great toe amputated apx 1 month prior to admission, presents to the ED on 02/03/2020 with right 2nd digit gangrene. At [facility] pt underwent RLE angiogram which revealed right SFA occlusion. He is being followed by vascular surgery and is s/p fem-pop bypass. Right groin wound now with purulent drainage and found to be infected and a wound vac placed. Patient is s/p right below knee amputation on 03/08/2020. ------ covid status: negative as per serology 02/02, 02/10/2020, 03/07/2020 Period Temp Pulse Resp BP Sys/Leahy Pulse Ox Last 24 Hr 97.7 F-100.8 F 87-99 18-18 121-164/72-87 95-100 GENERAL: The patient is awake, alert, in no acute distress. forgetful HEAD: Normal with no signs of trauma. EYES: PERRL, extraocular movements intact, sclera anicteric, conjunctiva clear. No ptosis. ENT: Ears normal, nares patent, oropharynx clear without exudates NECK: Trachea midline, full range of motion, supple. LUNGS: Breath sounds equal HEART: Regular rate and rhythm ABDOMEN: Soft, nontender, nondistended, normoactive bowel sounds right groin w ound, surgical agnes intact, mild redness noted around wound. EXTREMITIES: s/p right below knee amputation with immobilizer NEUROLOGICAL: Normal speech, gait not observed. PSYCH: Normal mood, normal affect Laboratory Results - last 24 hr 03/07/20 03/10/20 03/10/20 13:07 16:54 23:03 WBC RBC Hgb Hct MCV MCH MCHC RDW Plt Count MPV Absolute Neuts (auto) Neutrophils % Lymphocytes % Monocytes % Eosinophils % Basophils % Nucleated RBC % Sodium Potassium Chloride Carbon Dioxide Anion Gap BUN Creatinine Est GFR (CKD-EPI)AfAm Est GFR (CKD-EPI)NonAf POC Glucometer 229 279 Random Glucose Calcium Magnesium Total Bilirubin AST ALT Alkaline Phosphatase Total Protein Albumin Crossmatch See Detail 09/18/20 09/18/20 09/18/20 06:35 08:10 08:10 WBC 8.0 RBC 3.35 L Hgb 9.3 L Hct 28.2 L MCV 84.0 MCH 27.7 MCHC 33.0 RDW 15.4 Plt Count 318 MPV 7.6 Absolute Neuts (auto) 5.9 Neutrophils % 73.6 Lymphocytes % 16.6 D Monocytes % 7.6 Eosinophils % 1.7 Basophils % 0.5 Nucleated RBC % 0 Sodium 138 Potassium 3.8 Chloride 105 Carbon Dioxide 27 Anion Gap 5 L BUN 27.6 H Creatinine 1.2 Est GFR (CKD-EPI)AfAm 74.66 Est GFR (CKD-EPI)NonAf 64.42 POC Glucometer 256 Random Glucose 237 H Calcium 8.7 Magnesium 2.2 Total Bilirubin 0.4 AST 18 ALT 13 Alkaline Phosphatase 110 Total Protein 6.6 Albumin 1.6 L Crossmatch 03/11/20 11:53 WBC RBC Hgb Hct MCV MCH MCHC RDW Plt Count MPV Absolute Neuts (auto) Neutrophils % Lymphocytes % Monocytes % Eosinophils % Basophils % Nucleated RBC % Sodium Potassium Chloride Carbon Dioxide Anion Gap BUN Creatinine Est GFR (CKD-EPI)AfAm Est GFR (CKD-EPI)NonAf POC Glucometer 187 Random Glucose Calcium Magnesium Total Bilirubin AST ALT Alkaline Phosphatase Total Protein Albumin Crossmatch Active Medications Generic Name Dose Route Start Last Admin Trade Name Freq PRN Reason Stop Dose Admin Acetaminophen 650 mg 03/08/20 14:48 03/08/20 16:31 Tylenol - PO 650 mg Q4H PRN Administration FEVER Amino Acids 30 ml 03/08/20 17:30 03/11/20 09:15 Prosource No Carb Liquid Pkt PO 30 ml BID@0800,1730 HUGO Administration Artificial Tears 1 drop 03/08/20 14:48 Artificial Tears OU Q6H PRN DRY EYES Aspirin 81 mg 03/09/20 10:00 03/11/20 10:16 Asa - PO 81 mg DAILY HUGO Administration Atorvastatin Calcium 20 mg 03/08/20 22:00 03/10/20 22:57 Lipitor - PO 20 mg HS HUGO Administration Carvedilol 12.5 mg 03/08/20 22:00 03/11/20 10:15 Coreg - PO 12.5 mg BID HUGO Administration Digoxin 0.125 mg 03/09/20 10:00 03/11/20 10:15 Lanoxin - PO 0.125 mg DAILY HUGO Administration Docusate Sodium 100 mg 03/08/20 22:00 03/11/20 10:15 Colace - PO 100 mg BID HUGO Administration Famotidine 20 mg 03/08/20 22:00 03/11/20 10:16 Pepcid - PO 20 mg BID HUGO Administration Gabapentin 300 mg 03/08/20 22:00 03/11/20 06:36 Neurontin - PO 300 mg TID HUGO Administration Heparin Sodium (Porcine) 5,000 unit 03/08/20 22:00 03/11/20 06:36 Heparin - SQ 5,000 unit TID HUGO Administration Daptomycin 400 mg/ Sodium 50 mls @ 100 mls/hr 03/09/20 10:00 03/11/20 10:17 Chloride IVPB 100 mls/hr DAILY HUGO Administration Protocol Ertapenem 1 gm/ Sodium 50 mls @ 100 mls/hr 03/09/20 10:00 03/11/20 11:54 Chloride IVPB 100 mls/hr DAILY HUGO Administration Insulin Aspart 1 vial 03/08/20 16:30 03/11/20 11:55 Novolog Vial Sliding Scale - SQ 8 units ACHS HUGO Administration Protocol Insulin Detemir 30 units 03/08/20 22:00 03/10/20 23:00 Levemir Vial SQ 30 units HS HUGO Administration Magnesium Oxide 400 mg 03/08/20 22:00 03/11/20 10:17 Mag-Ox - PO 400 mg BID HUGO Administration Morphine Sulfate 4 mg 03/08/20 13:46 03/10/20 22:59 Morphine Sulfate IVPUSH 4 mg Q4H PRN Administration PAIN LEVEL 4 - 6 Multivitamins/Minerals/Vitamin C 1 tab 03/09/20 10:00 03/11/20 10:16 Tab-A-Vit - PO 1 tab DAILY HUGO Administration Polyethylene Glycol 17 gm 03/09/20 10:00 03/11/20 10:18 Miralax (For Daily Use) - PO 17 gm DAILY HUGO Administration Quetiapine Fumarate 50 mg 03/08/20 22:00 03/10/20 22:57 Seroquel - PO 50 mg HS HUGO Administration Tamsulosin HCl 0.4 mg 03/09/20 08:30 03/11/20 09:00 Flomax - PO 0.4 mg DAILY@0830 HUGO Administration Valsartan 320 mg 03/09/20 10:00 03/11/20 10:17 Diovan - PO 320 mg DAILY HUGO Administration Zinc Sulfate 220 mg 03/09/20 10:00 03/11/20 10:15 Orazinc - PO 220 mg DAILY HUGO Administration ASSESSMENT/PLAN: Problem List - Problems (1) Fever Assessment/Plan: tmax 100.8 monitor Code(s): R50.9 - FEVER, UNSPECIFIED (2) Diabetic foot infection Assessment/Plan: patient is s/p below right knee amputation on ertapenem and daptomycin Code(s): E11.628 - TYPE 2 DIABETES MELLITUS WITH OTHER SKIN COMPLICATIONS; L08.9 - LOCAL INFECTION OF THE SKIN AND SUBCUTANEOUS TISSUE, UNSP (3) Anemia Assessment/Plan: Anemia of chronic disease no signs of bleeding s/p 1 unit of prbc on 02/24 monitor CBC daily Code(s): D64.9 - ANEMIA, UNSPECIFIED (4) CKD (chronic kidney disease) Assessment/Plan: monitor kidney function trend intake/output and electrolytes Code(s): N18.9 - CHRONIC KIDNEY DISEASE, UNSPECIFIED (5) Congestive heart failure Assessment/Plan: Patient has normal ejection fraction, continue coreg, and digoxin, Stress test completed on 02/09/2020 no signs of volume overload Code(s): I50.9 - HEART FAILURE, UNSPECIFIED Qualifiers: Heart failure type: unspecified (6) Hypertension Assessment/Plan: labile BP currently on coreq 12.5mg bid, digoxin 0.125mg daily Code(s): I10 - ESSENTIAL (PRIMARY) HYPERTENSION (7) Uncontrolled type 2 diabetes mellitus Assessment/Plan: BGMs improved, goal is to maintain fasting bgms<180 tightened sliding scale insulin on levemir 45 units at hs Code(s): E11.65 - TYPE 2 DIABETES MELLITUS WITH HYPERGLYCEMIA (8) DVT prophylaxis Assessment/Plan: heparin tid Code(s): Z29.9 - ENCOUNTER FOR PROPHYLACTIC MEASURES, UNSPECIFIED Visit type - Emergency Visit Emergency Visit: Yes ED Registration Date: 02/03/20 Care time: The patient presented to the Emergency Department on the above date and was hospitalized for further evaluation of their emergent condition. - New Patient This patient is new to me today: No - Critical Care Critical Care patient: No - Discharge Referral Referred to [facility] Med P.C.: No
--- NOTE | 2020-03-11 15:02 | PATH ---
Surgical Pathology Report Patient Name: OZZIE UMANZOR Med. Rec. #: [id number] /Age/Gender: 1955 (Age: 64) / M Account: [id number] Location: [address] [place] [address]/[facility] Taken: 03/08/2020 Received: 03/08/2020 Reported: 03/11/2020 Physicians: CHRIS Lennon Specimen(s) Received RIGHT LOWER EXTREMITY RIGHT BELOW KNEE AMPUTATION Clinical History Necrotizing cellulitis gangrene Final Diagnosis RIGHT LOWER EXTREMITY, BELOW THE KNEE AMPUTATION: LOWER LEG AND FOOT WITH ACUTE AND CHRONIC GANGRENOUS NECROSIS INVOLVING SECOND AND THIRD DIGITS, BASE OF PREVIOUS AMPUTATION SITE, AND DISTAL FOREFOOT. UNDERLYING BONE WITH ACUTE OSTEOMYELITIS. FOCAL, SEGMENTAL, MODERATE CALCIFIC ARTERIOSCLEROSIS OF ANTERIOR AND POSTERIOR TIBIAL ARTERIES. SURGICAL MARGINS ARE VIABLE; NEGATIVE FOR OSTEOMYELITIS. Electronically Signed Sima Rico M.D. Gross Description Received fresh labeled "right lower extremity below the knee amputation" is a portion of lower leg which measures 22 cm from the tip of the toe to heel, 18 cm from heel to soft tissue margin, and 30 cm from heel to exposed bone (tibia and fibula). The first digit appears previously amputated. The second and third digits, base of the amputation site, and distal forefoot show black, gangrenous necrosis. The lesion appears to involve the underlying bone. The skin, soft tissue and bone margins grossly appear viable. Sectioning of the vasculature (anterior and posterior tibial arteries) shows focal, segmental, and moderate calcific arteriosclerosis. Poultry Farm Supervisor sections are submitted in 7 cassettes as follows: 1- skin and soft tissue margin; 2-bone margin, following decalcification; 3- gangrenous second digit; 4- gangrenous third digit; 5- gangrenous sole and adjacent tissue; 6- anterior tibial artery; 7- posterior tibial artery. MLSZ/03/08/2020 san/03/08/2020
--- NOTE | 2020-03-11 17:47 | PN ---
Progress Note (short form) - Note Progress Note: s/p BKA s/p washout with infected graft removal and vac placement no complaints Vital Signs Period Temp Pulse Resp BP Sys/Leahy Pulse Ox Last 24 Hr 97.7 F-100.8 F 87-99 18-18 132-164/70-87 95-99 cor-rrr lungs decreased bs at bases abd soft,nt vac in place CBC, BMP 03/11/20 08:10 03/11/20 08:10 crp 8.3 a/p s/p BKA s/p removal infected graft contact isolation for MDRO continue daptomycin and ertapenem-repeat cpk PVD dementia schizophrenia repeat crp will d/w surgery Problem List - Problems (1) Fever Code(s): R50.9 - FEVER, UNSPECIFIED (2) Diabetic foot infection Code(s): E11.628 - TYPE 2 DIABETES MELLITUS WITH OTHER SKIN COMPLICATIONS; L08.9 - LOCAL INFECTION OF THE SKIN AND SUBCUTANEOUS TISSUE, UNSP (3) PVD (peripheral vascular disease) Code(s): I73.9 - PERIPHERAL VASCULAR DISEASE, UNSPECIFIED (4) CKD (chronic kidney disease) Code(s): N18.9 - CHRONIC KIDNEY DISEASE, UNSPECIFIED (5) Anemia Code(s): D64.9 - ANEMIA, UNSPECIFIED
[2020-03-11] MEDS: QUEtiapine FUMARATE 25 MG TABLET PO SCH (22:30)
[2020-03-11] MEDS: INSULIN (LEVEMIR) 100 UNITS/ML UNITS SQ SCH (22:30)
[2020-03-11] MEDS: ATORVASTATIN CA 20 MG TABLET (FP) PO SCH (22:30)
--- NOTE | 2020-03-11 22:44 | RAPID ---
Physical Examination Vital Signs: Vital Signs Temperature 98.8 F 03/11/20 18:00 Pulse Rate 84 03/11/20 18:00 Respiratory Rate 13 03/11/20 18:00 Blood Pressure 146/80 03/11/20 18:00 O2 Sat by Pulse Oximetry (%) 98 03/11/20 18:00 Labs: CBC, BMP 03/11/20 08:10 03/11/20 08:10 Rapid Response - Rapid Response Assessment: rapid reponse was called overhead ACCOUNT INSTALLATION SPECIALIST responded immediately. Report from RN that pt profusely bleeding from wound vac site. BP 50s/30s. pt lethargic. RN instructed to maintain to hold pressure. wound vac turned off. code H called. records reviewed, pt is recently POD 3 R BKA; Right groin removal of infected graft (fem portion) / VAC application 03/03/2020 POD8 this AM H/H 9.3/28.2 Vascular notified and will come to evaluate patient pt transferred to ICU. BP stabilized to 70s/50s--> 90s/70s. pending CBC
[2020-03-11] MEDS ORDERED: PROMETHAZINE HCL 25 MG/1 ML VIAL IVPUSH PRN (23:46)
[2020-03-11] MEDS ORDERED: ONDANSETRON 4 MG/2 ML VIAL IVPUSH PRN (23:46)
--- NOTE | 2020-03-11 23:51 | CONSULT ---
Consult - text type - Consultation Consultation Note: I was called at 10:39 PM for this 64 yo male with "exsanguinating hemorrhage" from his right groin wound. Patient is s/p fem-pop bypass with PTFE on 02/17 for gangrene of his foot. He developed a groin wound infection and had abscess drainage and debridement of the groin on 02/25 with closure of the wound and no drains. The wound remained infected and he underwent partial graft excision on 03/03 leaving prosthetic graft in the groin. A VAC dressing was placed over the artery. Wound cultures grew MRSA and VREF and proteus at all surgeries. BKA was done on 03/08. This evening the VAC filled with blood. I was called by the resident and subsequently by Dr. Pineda who informed me that he would not be available to take care of this patient at this time. When I arrived at the bedside there was no evidence of active bleeding. The VAC dressing had not been removed. In order to safely evaluate the wound we will bring him to the OR and change the bandage. If there is evidence for arterial bleeding, general anesthesia will be started and the graft will be removed. If the artery cannot be repaired it will require ligation and [plan for extraanatomic bypass will be needed.
--- NOTE | 2020-03-11 23:54 | CONSULT ---
Consultation: REQUESTING PROVIDER: Dr. Chu CONSULT REQUEST: We have been asked to medically evaluate this patient for acute rt femoral vein/arterial exsanguination with a BP of 50/30 HISTORY OF PRESENT ILLNESS: This is a 64 y/o M with a PMHx of DM, schizophrenia, HTN, HLD, GERD, dementia, EtOH use disorder, right great toe amputation 1 month prior to admission, admitted for right 2nd toe gangrene. Pt underwent RLE angiogram which revealed right SFA occlusion. He is being followed by vascular surgery ([facility]). Patient is s/p fem-pop bypass with PTFE on 02/17 for gangrene of his foot. He developed a groin wound infection and had abscess drainage and debridement of the groin on 02/25 with closure of the wound and no drains. The wound remained infected and underwent partial graft excision on 03/03 leaving prosthetic graft in the groin. A VAC dressing was placed over the artery, BKA was done on 03/08. Rapid response called overhead for the exsanguination of rt groin and given profound hypotension 70's/50's with tachycardia, ICU consult was placed for further monitoring and volume resuscitation. Vascular surgery cargo operations agent contacted (Mauricio) who responded promptly to evaluate the bleeding. Dr. Ellis will take patient to OR to investigate cause of bleed as well as to change the dressing accordingly. REVIEW OF SYSTEMS: negative except above PHYSICAL EXAMINATION Vital Signs - 24 hr 03/11/20 03/11/20 03/11/20 02:11 06:00 09:00 Temperature 99.4 F 98.5 F Pulse Rate 98 H 93 H Respiratory 18 18 Rate Blood Pressure 137/75 145/83 O2 Sat by Pulse 98 96 98 Oximetry (%) 03/11/20 03/11/20 03/11/20 10:00 10:15 14:00 Temperature 97.7 F 98.3 F Pulse Rate 90 90 92 H Respiratory 18 18 Rate Blood Pressure 134/72 132/70 O2 Sat by Pulse 98 99 Oximetry (%) 03/11/20 18:00 Temperature 98.8 F Pulse Rate 84 Respiratory 13 Rate Blood Pressure 146/80 O2 Sat by Pulse 98 Oximetry (%) GENERAL: Awake, alert, and fully oriented, in no acute distress. LUNGS: Breath sounds reduced at bases. HEART: tachycardic, regular rhythm, normal S1 and S2 without murmur, rub or gallop. ABDOMEN: Soft, nontender, not distended. LOWER EXTREMITIES: 2+ pulses, Rt leg BKA, wound vac attached to rt groin where wound is being drained and allowing for granulation tissue to form NEUROLOGICAL: Cranial nerves II-XII intact. Normal speech. Normal gait. PSYCHIATRIC: Cooperative. Good eye contact. Appropriate mood and affect. SKIN: Warm, dry. Laboratory Results - last 24 hr 03/07/20 03/11/20 03/11/20 13:07 06:35 08:10 WBC 8.0 RBC 3.35 L Hgb 9.3 L Hct 28.2 L MCV 84.0 MCH 27.7 MCHC 33.0 RDW 15.4 Plt Count 318 MPV 7.6 Absolute Neuts (auto) 5.9 Neutrophils % 73.6 Lymphocytes % 16.6 D Monocytes % 7.6 Eosinophils % 1.7 Basophils % 0.5 Nucleated RBC % 0 Sodium Potassium Chloride Carbon Dioxide Anion Gap BUN Creatinine Est GFR (CKD-EPI)AfAm Est GFR (CKD-EPI)NonAf POC Glucometer 256 Random Glucose Calcium Magnesium Total Bilirubin AST ALT Alkaline Phosphatase Total Protein Albumin Crossmatch See Detail 03/11/20 03/11/20 03/11/20 08:10 11:53 16:39 WBC RBC Hgb Hct MCV MCH MCHC RDW Plt Count MPV Absolute Neuts (auto) Neutrophils % Lymphocytes % Monocytes % Eosinophils % Basophils % Nucleated RBC % Sodium 138 Potassium 3.8 Chloride 105 Carbon Dioxide 27 Anion Gap 5 L BUN 27.6 H Creatinine 1.2 Est GFR (CKD-EPI)AfAm 74.66 Est GFR (CKD-EPI)NonAf 64.42 POC Glucometer 187 208 Random Glucose 237 H Calcium 8.7 Magnesium 2.2 Total Bilirubin 0.4 AST 18 ALT 13 Alkaline Phosphatase 110 Total Protein 6.6 Albumin 1.6 L Crossmatch Active Medications Generic Name Dose Route Start Last Admin Trade Name Freq PRN Reason Stop Dose Admin Acetaminophen 650 mg 03/08/20 14:48 03/08/20 16:31 Tylenol - PO 650 mg Q4H PRN Administration FEVER Amino Acids 30 ml 03/08/20 17:30 03/11/20 16:50 Prosource No Carb Liquid Pkt PO 30 ml BID@0800,1730 HUGO Administration Artificial Tears 1 drop 03/08/20 14:48 Artificial Tears OU Q6H PRN DRY EYES Aspirin 81 mg 03/09/20 10:00 03/11/20 10:16 Asa - PO 81 mg DAILY HUGO Administration Atorvastatin Calcium 20 mg 03/08/20 22:00 03/10/20 22:57 Lipitor - PO 20 mg HS HUGO Administration Carvedilol 12.5 mg 03/08/20 22:00 03/11/20 10:15 Coreg - PO 12.5 mg BID HUGO Administration Chlorhexidine Gluconate 1 applic 03/12/20 22:00 Hibiclens For Decolonization - TP HS HUGO Digoxin 0.125 mg 03/09/20 10:00 03/11/20 10:15 Lanoxin - PO 0.125 mg DAILY [facility] Administration Docusate Sodium 100 mg 03/08/20 22:00 03/11/20 10:15 Colace - PO 100 mg BID HUGO Administration Famotidine 20 mg 03/08/20 22:00 03/11/20 10:16 Pepcid - PO 20 mg BID HUGO Administration Fentanyl 50 mcg 03/11/20 23:46 Sublimaze Injection - IVPUSH [id number] PRN PAIN-PACU ORDER X 4 DOSES ONLY Gabapentin 300 mg 03/08/20 22:00 03/11/20 15:09 Neurontin - PO 300 mg TID HUGO Administration Heparin Sodium (Porcine) 5,000 unit 03/08/20 22:00 03/11/20 15:09 Heparin - SQ 5,000 unit TID HUGO Administration Daptomycin 400 mg/ Sodium 50 mls @ 100 mls/hr 03/09/20 10:00 03/11/20 10:17 Chloride IVPB 100 mls/hr DAILY [facility] Administration Protocol Ertapenem 1 gm/ Sodium 50 mls @ 100 mls/hr 03/09/20 10:00 03/11/20 11:54 Chloride IVPB 100 mls/hr DAILY [facility]GO Administration Lactated Ringer's 1,000 mls @ 125 mls/hr 03/11/20 23:45 Lactated Ringers Solution IV ASDIR HUGO Insulin Aspart 1 vial 03/08/20 16:30 03/11/20 16:47 Novolog Vial Sliding Scale - SQ 10 units ACHS [facility] Administration Protocol Insulin Detemir 30 units 03/08/20 22:00 03/10/20 23:00 Levemir Vial SQ 30 units HS HUGO Administration Magnesium Oxide 400 mg 03/08/20 22:00 03/11/20 10:17 Mag-Ox - PO 400 mg BID HUGO Administration Morphine Sulfate 4 mg 03/08/20 13:46 03/10/20 22:59 Morphine Sulfate IVPUSH 4 mg Q4H PRN Administration PAIN LEVEL 4 - 6 Multivitamins/Minerals/Vitamin C 1 tab 03/09/20 10:00 03/11/20 10:16 Tab-A-Vit - PO 1 tab DAILY [facility] Administration Mupirocin 1 applic 03/12/20 10:00 Bactroban Ointment (For Decolonization) - NS 03/17/20 09:59 BID HUGO Ondansetron HCl 4 mg 03/11/20 23:46 Zofran Injection IVPUSH Q6H PRN NAUSEA AND/OR VOMITING Polyethylene Glycol 17 gm 03/09/20 10:00 03/11/20 10:18 Miralax (For Daily Use) - PO 17 gm DAILY [facility] Administration Promethazine HCl 12.5 mg 03/11/20 23:46 Phenergan Injection - IVPUSH Q6H PRN NAUSEA-FOR RESCUE AFTER 15 MIN Quetiapine Fumarate 50 mg 03/08/20 22:00 03/10/20 22:57 Seroquel - PO 50 mg HS HUGO Administration Tamsulosin HCl 0.4 mg 03/09/20 08:30 03/11/20 09:00 Flomax - PO 0.4 mg DAILY@0830 [facility] Administration Valsartan 320 mg 03/09/20 10:00 03/11/20 10:17 Diovan - PO 320 mg DAILY [facility] Administration Zinc Sulfate 220 mg 03/09/20 10:00 03/11/20 10:15 Orazinc - PO 220 mg DAILY [facility] Administration ASSESSMENT/PLAN: This is a 64 y/o M with a PMHx of DM, schizophrenia, HTN, HLD, GERD, dementia, EtOH use disorder, right great toe amputation 1 month prior to admission, admitted for right 2nd toe gangrene. Pt underwent RLE angiogram which revealed right SFA occlusion. He is being followed by vascular surgery ([facility]). Pt has been accepted to ICU for closer monitoring of bleeding, BP control, and serial cbc's. #Neuro - alert and oriented - no acute neurologic abnormalities at this time #Vascular - pt with exanguination of his rt groin and the wound VAC filled with blood 2/2 femoral vein vs artery graft bleed - pt s/p BKA/SFA fem pop bypass and wound debridement with placement of wound vac. - will hold vacuum suction until further instructions from vascular surgery - dr ellis taking patient to OR to investigate cause of bleed and possible removal of graft. - cbc, coags, type and screen, fibrinogen ordered - blood bank notified to havee prbc's ready - will monitor for signs of bleeding - hold all AC or antiplatelet agents - SCD's #Cardio - tachy 2/2 hemorrhage - will give IV hydration NS @100/hr until bleeding stops - no chf on recent echo - EF 50% cardio following - continue coreg 12.5 BID, and digoxin 0.125 for labile BP, - Stress test completed on 02/09/2020 - no signs of volume overload #Pulm - no pulm acute pathology at this time #ID - Wound cultures grew MRSA and VRE and proteus at all surgeries. - ID ([facility]) following - afebrile, no significant leukocytosis - f/u cbc in AM - diabetic foot infection/ groin wound on ertapenem and daptomycin #Heme - Anemia of chronic disease 2/2 CKD - f/u cbc, type screen, coags - s/p 1 unit of prbc on 02/24 - monitor CBC daily, transfuse if < 7 #Renal - CKD (baseline Cr 1.4-1.7) - Renal ftn stable, no acute indication for dialyiss at this time - monitor kidney function - trend intake/output and electrolytes #Endo - uncontrolled IDDM - BGMs improved, goal is to maintain fasting bgms<180 - ISS - on levemir 45 units hs CODE status: DNR/DNI PPX: SCD's Dispo: We will continue to follow the patient. Thank you for this consultative opportunity. Visit type - Emergency Visit Emergency Visit: Yes ED Registration Date: 02/03/20 Care time: The patient presented to the Emergency Department on the above date and was hospitalized for further evaluation of their emergent condition. - New Patient This patient is new to me today: Yes Date on this admission: 03/12/20 - Critical Care Critical Care patient: Yes Total Critical Care Time (in minutes): 40 Critical Care Statement: The care of this patient involved high complexity decision making to prevent further life threatening deterioration of the patient's condition and/or to evaluate & treat vital organ system(s) failure or risk of failure. ATTENDING PHYSICIAN STATEMENT I saw and evaluated the patient. I reviewed the resident's note and discussed the case with the resident. I agree with the resident's findings and plan as documented. SUBJECTIVE: OBJECTIVE: ASSESSMENT AND PLAN:
[2020-03-12 00:04] LABS: BASO % 0.9 % (0-2.0); EOS % 2.6 % (0-4.5); HEMATOCRIT 25.8 % (35.4-49); HEMOGLOBIN 8.7 GM/dL (11.7-16.9); LYMPH % 18.7 % (8-40); MCH 28.7 pg (25.7-33.7); MCHC 33.7 g/dl (32.0-35.9); MEAN CELL VOLUME 85.3 fl (80-96); MONO % 8.4 % (3.8-10.2); NEUT % 69.4 % (42.8-82.8); PLATELET COUNT 394 K/MM3 (134-434); RBC 3.03 M/mm3 (4.00-5.60); RDW 15.7 % (11.9-15.9); WHITE BLOOD COUNT 7.1 K/mm3 (4.0-10.0)
[2020-03-12 00:13] LABS: INR 1.23 (0.83-1.09); PROTHROMBIN TIME (PATIENT) 14.6 SEC (9.7-13.0)
[2020-03-12] MEDS ORDERED: MIDAZOLAM HCL 2 MG/2 ML SINGLE DOSE VIAL ONE ×2 (00:30→02:59)
[2020-03-12] MEDS ORDERED: ETOMIDATE 20 MG/10 ML AMPUL IVPUSH ONE (00:46)
[2020-03-12] MEDS ORDERED: LIDOCAINE HCL/PF 2% SDV 5ML VIAL ONE (00:46)
[2020-03-12] MEDS ORDERED: HEPARIN NA (PORCINE) 5,000 UNITS/ML 1ML VIAL ONE ×2 (00:48→01:44)
[2020-03-12] MEDS ORDERED: ROCURONIUM BROMIDE 50 MG/5 ML SYRINGE ONE (00:49)
[2020-03-12] MEDS ORDERED: KETOROLAC TROMETHAMINE 30 MG/1 ML VIAL ONE (01:55)
[2020-03-12] MEDS ORDERED: ACETAMINOPHEN INJECTION 100 ML IVPB ONE (02:06)
[2020-03-12] MEDS ORDERED: METOPROLOL TARTRATE 5 MG/5 ML VIAL ONE (02:21)
[2020-03-12] MEDS ORDERED: hydrALAZINE HCL 20 MG/ML VIAL ONE (02:51)
--- NOTE | 2020-03-12 02:54 | OP ---
Operative Note - Note: Operative Date: 03/12/20 Pre-Operative Diagnosis: Right femoral artery hemorrhage Operation: Resection of infected prosthetic graft and repair of right femoral artery with vein patch angioplasty. Endarterectomy femoral artery Findings: Exposed graft in right groin wound. Disrupted suture line at recent prosthetic graft site on femoral artery Post-Operative Diagnosis: Same as Pre-op Surgeon: Jorge Martínez Anesthesiologist/MINE LABORER: Jamie Mathias Anesthesia: General Specimens Removed: PTFE graft 2.5 cm length Estimated Blood Loss (mls): 50 Operative Report Dictated: Yes
[2020-03-12] MEDS ORDERED: LORazepam 2 MG/ML SDV VIAL IVPUSH ONE (03:16)
[2020-03-12] MEDS ORDERED: LORazepam 2 MG/ML SDV VIAL ONE (03:16)
[2020-03-12] MEDS: GABAPENTIN 300 MG CAPSULE PO SCH ×3 (05:55→21:26)
[2020-03-12 07:14] LABS: BASO % 0.3 % (0-2.0); HEMOGLOBIN 10.2 GM/dL (11.7-16.9); LYMPH % 3.9 % (8-40); MCH 28.9 pg (25.7-33.7); MEAN CELL VOLUME 87.4 fl (80-96); MEAN PLT VOLUME 7.9 fl (7.5-11.1); MONO % 1.1 % (3.8-10.2); NEUT % 94.7 % (42.8-82.8); PLATELET COUNT 274 K/MM3 (134-434); RBC 3.55 M/mm3 (4.00-5.60); RDW 14.9 % (11.9-15.9); WHITE BLOOD COUNT 12.5 K/mm3 (4.0-10.0)
[2020-03-12 07:30] LABS: ALBUMIN 1.6 g/dl (3.4-5.0); BILIRUBIN,TOTAL 0.7 mg/dL (0.2-1); BLOOD UREA NITROGEN 43.2 mg/dL (7-18); CALCIUM 7.6 mg/dL (8.5-10.1); CREATININE 1.4 mg/dL (0.55-1.3); MAGNESIUM 1.9 mg/dL (1.8-2.4); POTASSIUM 5.5 mmol/L (3.5-5.1); TOT PROT 6.1 g/dl (6.4-8.2)
[2020-03-12] MEDS: INSULIN SLIDING SCALE (NOVOLOG) 1 VIAL SQ SCH ×4 (08:31→21:47)
[2020-03-12] MEDS: ERTAPENEM SODIUM 1 GM in SODIUM CHLORIDE 50 ML IVPB SCH (09:23)
[2020-03-12] MEDS: AMINO ACIDS/PROTEIN HYDROLYS 30 ML LIQUID.PKT PO SCH ×2 (09:23→17:38)
[2020-03-12] MEDS: ZINC SULFATE 220 MG CAPSULE (FP) PO SCH (09:32)
[2020-03-12] MEDS: CARVEDILOL 12.5 MG TABLET (FP) PO SCH ×2 (09:32→21:26)
[2020-03-12] MEDS: POLYETHYLENE GLYCOL 3350 119 GM BTL PO SCH (09:32)
[2020-03-12] MEDS: DIGOXIN 0.125 MG TABLET (FP) PO SCH (09:32)
[2020-03-12] MEDS: TAMSULOSIN HCL 0.4 MG CAP PO SCH (09:32)
[2020-03-12] MEDS: DOCUSATE SODIUM 100 MG CAPSULE (FP) PO SCH ×2 (09:32→21:26)
[2020-03-12] MEDS: MULTIVITAMINS (DAILY MVI) TABLET (FP) PO SCH (09:32)
[2020-03-12] MEDS: MAGNESIUM OXIDE 400 MG TABLET (FP) PO SCH ×2 (09:32→21:26)
[2020-03-12] MEDS: FAMOTIDINE 20 MG TABLET PO SCH ×2 (09:32→21:26)
[2020-03-12] MEDS ORDERED: PT OWN MED DRAWER 7, Y5N ONE (09:58)
[2020-03-12] MEDS: DAPTOMYCIN 400 MG in SODIUM CHLORIDE 50 ML IVPB SCH (09:58)
[2020-03-12] MEDS: MUPIROCIN 2% TOPICAL OINTMENT FOR DECOLONIZATION NS SCH ×2 (09:58→21:27)
[2020-03-12] MEDS: morphine SULFATE 4 MG/ML VIAL IVPUSH PRN ×4 (10:29→21:44)
--- NOTE | 2020-03-12 10:54 | PN ---
Progress Note (short form) - Note Progress Note: events noted, bleeding from vac site and hypotension overnight taken to OR, remainder of graft removed and femoral artery vein patch placed s/p BKA s/p washout with infected graft removal and vac placement no complaints Vital Signs Period Temp Pulse Resp BP Sys/Leahy Pulse Ox Last 24 Hr 98.3 F-98.8 F 84-95 13-20 58-146/43-91 98-100 cor-rrr lungs clear abd soft,ne dressing right groin CBC, BMP 03/12/20 05:30 03/12/20 05:30 Microbiology 03/03/20 09:24 Groin - Right Gram Stain - Final 03/03/20 09:24 Groin - Right Wound Culture - Final Vr Ec Faecium Mr S Aureus Yeast Like Organism 02/26/20 14:37 Groin - Right Gram Stain - Final 02/26/20 14:37 Groin - Right Wound Culture - Final Klebsiella Pneumoniae - Esbl Vr Ec Faecium Enterococcus Faecalis 02/24/20 18:00 Blood - Peripheral Venous Blood Culture - Final NO GROWTH AFTER 5 DAYS INCUBATION 02/24/20 18:15 Blood - Peripheral Venous Blood Culture - Final NO GROWTH AFTER 5 DAYS INCUBATION 02/24/20 15:30 Groin - Right Gram Stain - Final 02/24/20 15:30 Groin - Right Wound Culture - Final Klebsiella Pneumoniae - Esbl Vr Ec Faecium 02/21/20 15:23 Blood - Peripheral Venous Blood Culture - Final NO GROWTH AFTER 5 DAYS INCUBATION 02/21/20 15:35 Blood - Peripheral Venous Blood Culture - Final NO GROWTH AFTER 5 DAYS INCUBATION 02/24/20 00:30 Urine - Urine - Catheterized Urine Culture - Final NO GROWTH OBTAINED 02/05/20 07:50 Blood - Peripheral Venous Blood Culture - Final NO GROWTH AFTER 5 DAYS INCUBATION 02/05/20 08:08 Blood - Peripheral Venous Blood Culture - Final NO GROWTH AFTER 5 DAYS INCUBATION 02/03/20 13:05 Blood - Peripheral Venous Blood Culture - Final NO GROWTH AFTER 5 DAYS INCUBATION 02/03/20 13:05 Blood - Peripheral Venous Blood Culture - Final NO GROWTH AFTER 5 DAYS INCUBATION 02/03/20 16:20 Toe - Right Hallux Gram Stain - Final 02/03/20 16:20 Toe - Right Hallux Wound Culture - Final Klebsiella Pneumoniae - Esbl Proteus Mirabilis Enterococcus Faecalis crp 8.3 a/p s/p bleeding requiring surgery overnight with placement of vein patch and removal of graft s/p BKA s/p removal infected graft contact isolation for MDRO continue daptomycin and ertapenem-repeat cpk in am PVD dementia schizophrenia Problem List - Problems (1) Fever Code(s): R50.9 - FEVER, UNSPECIFIED (2) Diabetic foot infection Code(s): E11.628 - TYPE 2 DIABETES MELLITUS WITH OTHER SKIN COMPLICATIONS; L08.9 - LOCAL INFECTION OF THE SKIN AND SUBCUTANEOUS TISSUE, UNSP (3) PVD (peripheral vascular disease) Code(s): I73.9 - PERIPHERAL VASCULAR DISEASE, UNSPECIFIED (4) CKD (chronic kidney disease) Code(s): N18.9 - CHRONIC KIDNEY DISEASE, UNSPECIFIED (5) Anemia Code(s): D64.9 - ANEMIA, UNSPECIFIED
[2020-03-12] MEDS: VALSARTAN 160 MG TABLET PO SCH (11:14)
--- NOTE | 2020-03-12 11:39 | PN ---
Progress Note (short form) - Note Progress Note: POD 1 Awake and alert VSS Right groin wound with serosanguinous drainage. Hgb 10 Stable Resume VAC dressings Continue ABx
--- NOTE | 2020-03-12 12:41 | PN ---
Progress Note (short form) - Note Progress Note: cc: leg pain s: denies chest pain, palps, dizziness dyspnea. yesterday had hypotension, bleeding from fem-pop graft site and was taken urgently to OR where graft was removed. now monitoring in ICU Current Medications Generic Name Dose Route Start Last Admin Trade Name Freq PRN Reason Stop Dose Admin Acetaminophen 650 mg 03/08/20 14:48 03/08/20 16:31 Tylenol - PO 650 mg Q4H PRN Administration FEVER Amino Acids 30 ml 03/08/20 17:30 03/12/20 09:23 Prosource No Carb Liquid Pkt PO 30 ml BID@0800,1730 HUGO Administration Artificial Tears 1 drop 03/08/20 14:48 Artificial Tears OU Q6H PRN DRY EYES Atorvastatin Calcium 20 mg 03/08/20 22:00 03/11/20 22:30 Lipitor - PO Not Given HS HUGO Carvedilol 12.5 mg 03/08/20 22:00 03/12/20 09:32 Coreg - PO 12.5 mg BID [facility]GO Administration Chlorhexidine Gluconate 1 applic 03/12/20 22:00 Hibiclens For Decolonization - TP HS HUGO Digoxin 0.125 mg 03/09/20 10:00 03/12/20 09:32 Lanoxin - PO 0.125 mg DAILY [facility] Administration Docusate Sodium 100 mg 03/08/20 22:00 03/12/20 09:32 Colace - PO 100 mg BID [facility]GO Administration Famotidine 20 mg 03/08/20 22:00 03/12/20 09:32 Pepcid - PO 20 mg BID [facility]GO Administration Fentanyl 50 mcg 03/11/20 23:46 Sublimaze Injection - IVPUSH [id number] PRN PAIN-PACU ORDER X 4 DOSES ONLY Gabapentin 300 mg 03/08/20 22:00 03/12/20 05:55 Neurontin - PO Not Given TID HUGO Daptomycin 400 mg/ Sodium 50 mls @ 100 mls/hr 03/09/20 10:00 03/12/20 09:58 Chloride IVPB 100 mls/hr DAILY [facility] Administration Protocol Ertapenem 1 gm/ Sodium 50 mls @ 100 mls/hr 03/09/20 10:00 03/12/20 09:23 Chloride IVPB 100 mls/hr DAILY [facility] Administration Lactated Ringer's 1,000 mls @ 125 mls/hr 03/11/20 23:45 03/12/20 00:00 Lactated Ringers Solution IV 125 mls/hr ASDIR [facility]GO Administration Insulin Aspart 1 vial 03/08/20 16:30 03/12/20 12:19 Novolog Vial Sliding Scale - SQ 18 units ACHS [facility] Administration Protocol Insulin Detemir 30 units 03/08/20 22:00 03/11/20 22:30 Levemir Vial SQ Not Given HS HUGO Magnesium Oxide 400 mg 03/08/20 22:00 03/12/20 09:32 Mag-Ox - PO 400 mg BID HUGO Administration Morphine Sulfate 4 mg 03/08/20 13:46 03/12/20 10:29 Morphine Sulfate IVPUSH 4 mg Q4H PRN Administration PAIN LEVEL 4 - 6 Multivitamins/Minerals/Vitamin C 1 tab 03/09/20 10:00 03/12/20 09:32 Tab-A-Vit - PO 1 tab DAILY [facility] Administration Mupirocin 1 applic 03/12/20 10:00 03/12/20 09:58 Bactroban Ointment (For Decolonization) - NS 03/17/20 09:59 1 applic BID HUGO Administration Ondansetron HCl 4 mg 03/11/20 23:46 Zofran Injection IVPUSH Q6H PRN NAUSEA AND/OR VOMITING Polyethylene Glycol 17 gm 03/09/20 10:00 03/12/20 09:32 Miralax (For Daily Use) - PO 17 gm DAILY [facility]GO Administration Promethazine HCl 12.5 mg 03/11/20 23:46 Phenergan Injection - IVPUSH Q6H PRN NAUSEA-FOR RESCUE AFTER 15 MIN Quetiapine Fumarate 50 mg 03/08/20 22:00 03/11/20 22:30 Seroquel - PO Not Given HS [facility] Tamsulosin HCl 0.4 mg 03/09/20 08:30 03/12/20 09:32 Flomax - PO 0.4 mg DAILY@0830 HUGO Administration Valsartan 320 mg 03/09/20 10:00 03/12/20 11:14 Diovan - PO Not Given DAILY [facility] Zinc Sulfate 220 mg 03/09/20 10:00 03/12/20 09:32 Orazinc - PO 220 mg DAILY [facility] Administration Vital Signs Period Temp Pulse Resp BP Sys/Leahy Pulse Ox Last 24 Hr 98.3 F-98.8 F 84-95 13-20 58-146/43-91 98-100 Constitutional: Yes: Well Nourished, No Distress Eyes: No: Sclera Icterus HENT: No: Nasal Congestion Respiratory: Yes: CTA Bilaterally. No: Accessory Muscle Use, Rales, Wheezes Gastrointestinal: Yes: Normal Bowel Sounds. No: Distention, Hepatomegaly, Palpable Mass, Tenderness Cardiovascular: Yes: Regular Rate and Rhythm JVD: No Heart Sounds: Yes: S1, S2. No: Gallop Murmur: No: Systolic Murmur, Diastolic Murmur Edema: No Integumentary: No: Jaundice Neurological: Yes: Alert. No: Seizure Psychiatric: No: Agitated Assessment/Plan echo 01/2020: normal LVEF, nl RV, nl valve function. CXR: ATX vs infiltrate R base, no effusions/congestion mibi 01/2020 mod sized area of inferolateral scar, no ischemia, EF 45% tele: sinus hypovolemic shock, postop bleeding, PAD - s/p R fem-pop, BKA - 03/11 transferred to ICU and taken urgently to OR for bleeding - stable H/H now after OR, received IVF - holding home BP meds as needed CAD: - no angina sx's here - preop mibi shows inferolateral scar, no ischemia. mildly reduced EF. - continue statin, aspirin - on digoxin for unclear indication, levels ok here, continue--outpt f/u with prior treating physician DM: -per hospitalist HTN: -improved, cont current meds HPL: -cont statin estimated critical care time = 35 min
[2020-03-12 13:16] LABS: ANISOCYTOSIS 1+; MACROCYTOSIS 1+; PLATELET ESTIMATE NORMAL
--- NOTE | 2020-03-12 16:38 | PN ---
Progress Note (short form) - Note Progress Note: PULM/CCM 24Hr: -yesterday had bleeding from fem/pop graft repair site -take to OR overnight for repair with Dr Martínez -hemodynamically stable overnight Vital Signs Temp 98.0 F 03/12/20 10:00 Pulse 90 03/12/20 12:00 Resp 11 03/12/20 12:00 BP 108/69 03/12/20 12:00 Pulse Ox 99 03/12/20 12:00 Intake & Output 03/11/20 03/12/20 03/12/20 23:59 11:59 23:59 Intake Total 650 1400 Output Total 950 Balance 650 450 Intake: IV 700 IVPB 100 Oral 550 Blood Product 700 Output: Urine 900 Void 900 Estimated Blood Loss 50 Other: Voiding Method Urinal Urinal # Unmeasured Voids Void 1 Bowel Movement No CBC, BMP 03/12/20 05:30 03/12/20 05:30 Active Medications Acetaminophen (Tylenol -) 650 mg PO Q4H PRN PRN Reason: FEVER Last Admin: 03/08/20 16:31 Dose: 650 mg Documented by: Amino Acids (Prosource No Carb Liquid Pkt) 30 ml PO BID@0800,1730 [facility] Last Admin: 03/12/20 09:23 Dose: 30 ml Documented by: Artificial Tears (Artificial Tears) 1 drop OU Q6H PRN PRN Reason: DRY EYES Atorvastatin Calcium (Lipitor -) 20 mg PO HS [facility] Last Admin: 03/11/20 22:30 Dose: Not Given Documented by: Carvedilol (Coreg -) 12.5 mg PO BID [facility] Last Admin: 03/12/20 09:32 Dose: 12.5 mg Documented by: Chlorhexidine Gluconate (Hibiclens For Decolonization -) 1 applic TP [facility] Digoxin (Lanoxin -) 0.125 mg PO DAILY [facility] Last Admin: 03/12/20 09:32 Dose: 0.125 mg Documented by: Docusate Sodium (Colace -) 100 mg PO BID [facility] Last Admin: 03/12/20 09:32 Dose: 100 mg Documented by: Famotidine (Pepcid -) 20 mg PO BID [facility] Last Admin: 03/12/20 09:32 Dose: 20 mg Documented by: Fentanyl (Sublimaze Injection -) 50 mcg IVPUSH [id number] PRN PRN Reason: PAIN-PACU ORDER X 4 DOSES ONLY Gabapentin (Neurontin -) 300 mg PO TID [facility] Last Admin: 03/12/20 13:30 Dose: 300 mg Documented by: Daptomycin 400 mg/ Sodium (Chloride) 50 mls @ 100 mls/hr IVPB DAILY [facility]; Protocol Last Admin: 03/12/20 09:58 Dose: 100 mls/hr Documented by: Ertapenem 1 gm/ Sodium (Chloride) 50 mls @ 100 mls/hr IVPB DAILY [facility] Last Admin: 03/12/20 09:23 Dose: 100 mls/hr Documented by: Lactated Ringer's (Lactated Ringers Solution) 1,000 mls @ 125 mls/hr IV ASDIR [facility] Last Admin: 03/12/20 00:00 Dose: 125 mls/hr Documented by: Insulin Aspart (Novolog Vial Sliding Scale -) 1 vial SQ ACHS [facility]; Protocol Last Admin: 03/12/20 12:19 Dose: 18 units Documented by: Insulin Detemir (Levemir Vial) 30 units SQ [facility] Last Admin: 03/11/20 22:30 Dose: Not Given Documented by: Magnesium Oxide (Mag-Ox -) 400 mg PO BID [facility] Last Admin: 03/12/20 09:32 Dose: 400 mg Documented by: Morphine Sulfate (Morphine Sulfate) 4 mg IVPUSH Q4H PRN PRN Reason: PAIN LEVEL 4 - 6 Last Admin: 03/12/20 16:21 Dose: 4 mg Documented by: Multivitamins/Minerals/Vitamin C (Tab-A-Vit -) 1 tab PO DAILY [facility] Last Admin: 03/12/20 09:32 Dose: 1 tab Documented by: Mupirocin (Bactroban Ointment (For Decolonization) -) 1 applic NS BID [facility] Stop: 03/17/20 09:59 Last Admin: 03/12/20 09:58 Dose: 1 applic Documented by: Ondansetron HCl (Zofran Injection) 4 mg IVPUSH Q6H PRN PRN Reason: NAUSEA AND/OR VOMITING Polyethylene Glycol (Miralax (For Daily Use) -) 17 gm PO DAILY [facility] Last Admin: 03/12/20 09:32 Dose: 17 gm Documented by: Promethazine HCl (Phenergan Injection -) 12.5 mg IVPUSH Q6H PRN PRN Reason: NAUSEA-FOR RESCUE AFTER 15 MIN Quetiapine Fumarate (Seroquel -) 50 mg PO HS [facility] Last Admin: 03/11/20 22:30 Dose: Not Given Documented by: Tamsulosin HCl (Flomax -) 0.4 mg PO DAILY@0830 [facility] Last Admin: 03/12/20 09:32 Dose: 0.4 mg Documented by: Valsartan (Diovan -) 320 mg PO DAILY [facility] Last Admin: 03/12/20 11:14 Dose: Not Given Documented by: Zinc Sulfate (Orazinc -) 220 mg PO DAILY [facility] Last Admin: 03/12/20 09:32 Dose: 220 mg Documented by: ASSESSMENT/PLAN: 64 y/o M with a PMHx of DM, schizophrenia, HTN, HLD, GERD, dementia, EtOH use disorder, PAD now s/p fem/pop graft repair for arterial bleeding with Dr Martínez #S/p vascular repair - wound vac - vascular for any signs of bleeding - hold all AC or antiplatelet agents - SCD's #CV - tachy 2/2 hemorrhage - will give IV hydration as needed - EF 50% cardio following - restart coreg 12.5 BID, and digoxin 0.125 for labile BP, #Pulm - no pulm acute pathology at this time #ID - Wound cultures grew MRSA and VRE and proteus at all surgeries, now source control with graft removed - ID (Ángel) following, recs apprecitated - ertapenem and daptomycin, may need penitentiary #Renal - CKD (baseline Cr 1.4-1.7) - Renal function - monitor kidney function - trend intake/output and electrolytes #Endo - uncontrolled IDDM - BGMs improved, goal is to maintain fasting bgms<180 - ISS - on levemir 45 units hs CODE status: DNR/DNI PPX: SCD's
[2020-03-12] MEDS: ATORVASTATIN CA 20 MG TABLET (FP) PO SCH (21:26)
[2020-03-12] MEDS: QUEtiapine FUMARATE 25 MG TABLET PO SCH (21:26)
[2020-03-12] MEDS: CHLORHEXIDINE GLUCONATE 4% CLEANSER FOR DECOLONIZATION TP SCH (21:27)
[2020-03-12] MEDS: LACTATED RINGERS SOLUTION 1,000 ML IV SCH ×2 (21:28)
[2020-03-12] MEDS: INSULIN (LEVEMIR) 100 UNITS/ML UNITS SQ SCH (21:48)
[2020-03-13] MEDS: LACTATED RINGERS SOLUTION 1,000 ML IV SCH (00:27)
[2020-03-13] MEDS: GABAPENTIN 300 MG CAPSULE PO SCH ×3 (06:17→21:29)
[2020-03-13] MEDS: INSULIN SLIDING SCALE (NOVOLOG) 1 VIAL SQ SCH ×4 (06:38→21:52)
[2020-03-13 06:55] LABS: BASO % 0.6 % (0-2.0); EOS % 1.7 % (0-4.5); HEMATOCRIT 22.9 % (35.4-49); HEMOGLOBIN 7.8 GM/dL (11.7-16.9); LYMPH % 15.3 % (8-40); MCH 29.2 pg (25.7-33.7); MCHC 33.9 g/dl (32.0-35.9); MEAN PLT VOLUME 7.8 fl (7.5-11.1); MONO % 6.8 % (3.8-10.2); NEUT % 75.6 % (42.8-82.8); PLATELET COUNT 227 K/MM3 (134-434); RBC 2.67 M/mm3 (4.00-5.60); RDW 14.7 % (11.9-15.9); WHITE BLOOD COUNT 8.3 K/mm3 (4.0-10.0)
[2020-03-13 07:23] LABS: ALBUMIN 1.4 g/dl (3.4-5.0); BILIRUBIN,TOTAL 0.6 mg/dL (0.2-1); BLOOD UREA NITROGEN 42.4 mg/dL (7-18); CALCIUM 7.4 mg/dL (8.5-10.1); CREATININE 1.2 mg/dL (0.55-1.3); MAGNESIUM 2.1 mg/dL (1.8-2.4); POTASSIUM 4.4 mmol/L (3.5-5.1); TOT PROT 5.3 g/dl (6.4-8.2)
[2020-03-13] MEDS: ZINC SULFATE 220 MG CAPSULE (FP) PO SCH (09:36)
[2020-03-13] MEDS: MAGNESIUM OXIDE 400 MG TABLET (FP) PO SCH ×2 (09:36→21:29)
[2020-03-13] MEDS: CARVEDILOL 12.5 MG TABLET (FP) PO SCH ×2 (09:36→21:30)
[2020-03-13] MEDS: DOCUSATE SODIUM 100 MG CAPSULE (FP) PO SCH ×2 (09:36→21:28)
[2020-03-13] MEDS: DIGOXIN 0.125 MG TABLET (FP) PO SCH (09:36)
[2020-03-13] MEDS: FAMOTIDINE 20 MG TABLET PO SCH ×2 (09:36→21:29)
[2020-03-13] MEDS: TAMSULOSIN HCL 0.4 MG CAP PO SCH (09:36)
[2020-03-13] MEDS: MULTIVITAMINS (DAILY MVI) TABLET (FP) PO SCH (09:36)
[2020-03-13] MEDS: MUPIROCIN 2% TOPICAL OINTMENT FOR DECOLONIZATION NS SCH ×2 (09:38→21:52)
[2020-03-13] MEDS: DAPTOMYCIN 400 MG in SODIUM CHLORIDE 50 ML IVPB SCH (09:38)
[2020-03-13] MEDS: ERTAPENEM SODIUM 1 GM in SODIUM CHLORIDE 50 ML IVPB SCH (09:38)
[2020-03-13] MEDS: AMINO ACIDS/PROTEIN HYDROLYS 30 ML LIQUID.PKT PO SCH ×2 (09:39→19:36)
[2020-03-13] MEDS: VALSARTAN 160 MG TABLET PO SCH (09:40)
--- NOTE | 2020-03-13 10:25 | PN ---
Progress Note (short form) - Note Progress Note: Post op day#1.S/p Right groin exploration with excision of infected graft ,patch repair of Right femoral artery and attempted Flap closure under GA uneventful.Patient stable.No any anesthesia related problem.Patient DC from the anesthesia care.
--- NOTE | 2020-03-13 11:00 | PN ---
Progress Note (short form) - Note Progress Note: PULM/CCM 24Hr: -No more bleeding at the graft site -hemodynamically stable overnight Vital Signs Period Temp Pulse Resp BP Sys/Leahy Pulse Ox Last 24 Hr 97.9 F-98.6 F 85-96 11-24 110-136/54-77 96-99 Intake & Output 03/10/20 03/11/20 03/12/20 03/13/20 23:59 23:59 23:59 23:59 Intake Total 919 020 9869 875 Output Total 1000 1900 1900 Balance -500 800 275 -1025 CBC, BMP 03/13/20 05:35 03/13/20 05:35 Active Medications Acetaminophen (Tylenol -) 650 mg PO Q4H PRN PRN Reason: FEVER Last Admin: 03/08/20 16:31 Dose: 650 mg Documented by: Amino Acids (Prosource No Carb Liquid Pkt) 30 ml PO BID@0800,1730 [facility] Last Admin: 03/13/20 09:39 Dose: 30 ml Documented by: Artificial Tears (Artificial Tears) 1 drop OU Q6H PRN PRN Reason: DRY EYES Atorvastatin Calcium (Lipitor -) 20 mg PO [facility] Last Admin: 03/12/20 21:26 Dose: 20 mg Documented by: Carvedilol (Coreg -) 12.5 mg PO BID [facility] Last Admin: 03/13/20 09:36 Dose: 12.5 mg Documented by: Chlorhexidine Gluconate (Hibiclens For Decolonization -) 1 applic TP [facility] Last Admin: 03/12/20 21:27 Dose: 1 applic Documented by: Digoxin (Lanoxin -) 0.125 mg PO DAILY [facility] Last Admin: 03/13/20 09:36 Dose: 0.125 mg Documented by: Docusate Sodium (Colace -) 100 mg PO BID [facility] Last Admin: 03/13/20 09:36 Dose: 100 mg Documented by: Famotidine (Pepcid -) 20 mg PO BID [facility] Last Admin: 03/13/20 09:36 Dose: 20 mg Documented by: Fentanyl (Sublimaze Injection -) 50 mcg IVPUSH [id number] PRN PRN Reason: PAIN-PACU ORDER X 4 DOSES ONLY Gabapentin (Neurontin -) 300 mg PO TID [facility] Last Admin: 03/13/20 06:17 Dose: 300 mg Documented by: Daptomycin 400 mg/ Sodium (Chloride) 50 mls @ 100 mls/hr IVPB DAILY [facility]; Protocol Last Admin: 03/13/20 09:38 Dose: 100 mls/hr Documented by: Ertapenem 1 gm/ Sodium (Chloride) 50 mls @ 100 mls/hr IVPB DAILY [facility] Last Admin: 03/13/20 09:38 Dose: 100 mls/hr Documented by: Insulin Aspart (Novolog Vial Sliding Scale -) 1 vial SQ [facility]; Protocol Last Admin: 03/13/20 06:38 Dose: 10 units Documented by: Insulin Detemir (Levemir Vial) 30 units SQ [facility] Last Admin: 03/12/20 21:48 Dose: 30 units Documented by: Magnesium Oxide (Mag-Ox -) 400 mg PO BID [facility] Last Admin: 03/13/20 09:36 Dose: 400 mg Documented by: Morphine Sulfate (Morphine Sulfate) 4 mg IVPUSH Q4H PRN PRN Reason: PAIN LEVEL 4 - 6 Last Admin: 03/12/20 21:44 Dose: 4 mg Documented by: Multivitamins/Minerals/Vitamin C (Tab-A-Vit -) 1 tab PO DAILY [facility] Last Admin: 03/13/20 09:36 Dose: 1 tab Documented by: Mupirocin (Bactroban Ointment (For Decolonization) -) 1 applic NS BID [facility] Stop: 03/17/20 09:59 Last Admin: 03/13/20 09:38 Dose: 1 applic Documented by: Ondansetron HCl (Zofran Injection) 4 mg IVPUSH Q6H PRN PRN Reason: NAUSEA AND/OR VOMITING Polyethylene Glycol (Miralax (For Daily Use) -) 17 gm PO DAILY [facility] Last Admin: 03/12/20 09:32 Dose: 17 gm Documented by: Promethazine HCl (Phenergan Injection -) 12.5 mg IVPUSH Q6H PRN PRN Reason: NAUSEA-FOR RESCUE AFTER 15 MIN Quetiapine Fumarate (Seroquel -) 50 mg PO [facility] Last Admin: 03/12/20 21:26 Dose: 50 mg Documented by: Tamsulosin HCl (Flomax -) 0.4 mg PO DAILY@0830 [facility] Last Admin: 03/13/20 09:36 Dose: 0.4 mg Documented by: Valsartan (Diovan -) 320 mg PO DAILY [facility] Last Admin: 03/13/20 09:40 Dose: 320 mg Documented by: Zinc Sulfate (Orazinc -) 220 mg PO DAILY [facility] Last Admin: 03/13/20 09:36 Dose: 220 mg Documented by: PE: Gen: awake, alert, bulgarian speaking HEENT: EOMI, Atraumatic PULM: clear CV: regular, s1s2 Abd: soft Ext: R BKA, R fem/pop bypass site with wound vac in place Neuro: GOLDEN A/ DMII schizophrenia HTN HLD GERD dementia, PAD now s/p fem/pop graft repair for arterial bleeding with Dr Martínez MRSA P/ - Acetaminophen for pain control - wound vac - vascular for any signs of bleeding - hold all AC or antiplatelet agents - Continue coreg 12.5 BID, and digoxin 0.125 - SCD's - Wound cultures grew MRSA and VRE and proteus at all surgeries, now source control with graft removed - ID following, recs apprecitated - continue ertapenem and daptomycin, may need senior living - Trend and replete lytes - I/Os - Fingersticks, insulin coverage scale and Levemir - SCDs - Famotidine for GI ppx Dispo: patient is DNR/DNI. Hemodynamically stable. critical care issues resolved. Patient is stab;e to to to M/S. Mary Marvin [facility] [id number]
--- NOTE | 2020-03-13 12:00 | PN ---
Progress Note (short form) - Note Progress Note: cc: leg pain s: denies chest pain, palps, dizziness dyspnea. Current Medications Generic Name Dose Route Start Last Admin Trade Name Freq PRN Reason Stop Dose Admin Acetaminophen 650 mg 03/08/20 14:48 03/08/20 16:31 Tylenol - PO 650 mg Q4H PRN Administration FEVER Amino Acids 30 ml 03/08/20 17:30 03/13/20 09:39 Prosource No Carb Liquid Pkt PO 30 ml BID@0800,1730 [facility] Administration Artificial Tears 1 drop 03/08/20 14:48 Artificial Tears OU Q6H PRN DRY EYES Atorvastatin Calcium 20 mg 03/08/20 22:00 03/12/20 21:26 Lipitor - PO 20 mg HS [facility] Administration Carvedilol 12.5 mg 03/08/20 22:00 03/13/20 09:36 Coreg - PO 12.5 mg BID [facility] Administration Chlorhexidine Gluconate 1 applic 03/12/20 22:00 03/12/20 21:27 Hibiclens For Decolonization - TP 1 applic HS [facility] Administration Digoxin 0.125 mg 03/09/20 10:00 03/13/20 09:36 Lanoxin - PO 0.125 mg DAILY [facility] Administration Docusate Sodium 100 mg 03/08/20 22:00 03/13/20 09:36 Colace - PO 100 mg BID [facility] Administration Famotidine 20 mg 03/08/20 22:00 03/13/20 09:36 Pepcid - PO 20 mg BID [facility] Administration Fentanyl 50 mcg 03/11/20 23:46 Sublimaze Injection - IVPUSH [id number] PRN PAIN-PACU ORDER X 4 DOSES ONLY Gabapentin 300 mg 03/08/20 22:00 03/13/20 06:17 Neurontin - PO 300 mg TID [facility] Administration Daptomycin 400 mg/ Sodium 50 mls @ 100 mls/hr 03/09/20 10:00 03/13/20 09:38 Chloride IVPB 100 mls/hr DAILY [facility] Administration Protocol Ertapenem 1 gm/ Sodium 50 mls @ 100 mls/hr 03/09/20 10:00 03/13/20 09:38 Chloride IVPB 100 mls/hr DAILY [facility] Administration Insulin Aspart 1 vial 03/08/20 16:30 09/20/20 06:38 Novolog Vial Sliding Scale - SQ 10 units ACHS [facility] Administration Protocol Insulin Detemir 30 units 03/08/20 22:00 03/12/20 21:48 Levemir Vial SQ 30 units HS [facility] Administration Magnesium Oxide 400 mg 03/08/20 22:00 03/13/20 09:36 Mag-Ox - PO 400 mg BID [facility] Administration Morphine Sulfate 4 mg 03/08/20 13:46 03/12/20 21:44 Morphine Sulfate IVPUSH 4 mg Q4H PRN Administration PAIN LEVEL 4 - 6 Multivitamins/Minerals/Vitamin C 1 tab 03/09/20 10:00 03/13/20 09:36 Tab-A-Vit - PO 1 tab DAILY [facility] Administration Mupirocin 1 applic 03/12/20 10:00 03/13/20 09:38 Bactroban Ointment (For Decolonization) - NS 03/17/20 09:59 1 applic BID [facility] Administration Ondansetron HCl 4 mg 03/11/20 23:46 Zofran Injection IVPUSH Q6H PRN NAUSEA AND/OR VOMITING Polyethylene Glycol 17 gm 03/09/20 10:00 03/12/20 09:32 Miralax (For Daily Use) - PO 17 gm DAILY [facility] Administration Promethazine HCl 12.5 mg 03/11/20 23:46 Phenergan Injection - IVPUSH Q6H PRN NAUSEA-FOR RESCUE AFTER 15 MIN Quetiapine Fumarate 50 mg 03/08/20 22:00 03/12/20 21:26 Seroquel - PO 50 mg HS [facility] Administration Tamsulosin HCl 0.4 mg 03/09/20 08:30 03/13/20 09:36 Flomax - PO 0.4 mg DAILY@0830 [facility] Administration Valsartan 320 mg 03/09/20 10:00 03/13/20 09:40 Diovan - PO 320 mg DAILY [facility] Administration Zinc Sulfate 220 mg 03/09/20 10:00 03/13/20 09:36 Orazinc - PO 220 mg DAILY [facility] Administration Vital Signs Period Temp Pulse Resp BP Sys/Leahy Pulse Ox Last 24 Hr 97.9 F-98.6 F 85-96 11-24 108-136/54-77 96-99 Constitutional: Yes: Well Nourished, No Distress Eyes: No: Sclera Icterus HENT: No: Nasal Congestion Respiratory: Yes: CTA Bilaterally. No: Accessory Muscle Use, Rales, Wheezes Gastrointestinal: Yes: Normal Bowel Sounds. No: Distention, Hepatomegaly, Palpable Mass, Tenderness Cardiovascular: Yes: Regular Rate and Rhythm JVD: No Heart Sounds: Yes: S1, S2. No: Gallop Murmur: No: Systolic Murmur, Diastolic Murmur Edema: No Integumentary: No: Jaundice Neurological: Yes: Alert. No: Seizure Psychiatric: No: Agitated Assessment/Plan echo 01/2020: normal LVEF, nl RV, nl valve function. CXR: ATX vs infiltrate R base, no effusions/congestion mibi 01/2020 mod sized area of inferolateral scar, no ischemia, EF 45% tele: sinus postop bleeding, PAD - s/p R fem-pop, BKA - 03/11 transferred to ICU and taken urgently to OR for bleeding - stable H/H after OR, received IVF, PRBCs with stable BP - manage per vascular CAD: - no angina sx's here - preop mibi shows inferolateral scar, no ischemia. mildly reduced EF. - continue statin, aspirin - on digoxin for unclear indication, levels ok here, continue--outpt f/u with prior treating physician DM: -per hospitalist HTN: - cont current meds HPL: -cont statin
--- NOTE | 2020-03-13 14:02 | OP ---
DATE OF OPERATION: 03/12/2020 SURGEON: Jorge Martínez MD PROCEDURE: Resection of infected prosthetic graft and repair of right femoral artery with vein patch angioplasty. Endarterectomy of femoral artery. PREOPERATIVE DIAGNOSIS: Hemorrhage from right femoral artery. POSTOPERATIVE DIAGNOSIS: Hemorrhage from right femoral artery with infected prosthetic graft. ANESTHESIA: General. ANESTHESIOLOGIST: Jamie Mathias MD OPERATIVE FINDINGS: Upon removal of the dressing from the right groin, exposed prosthetic graft material was visible in the wound. This was traced down to the femoral artery where there was disruption of the portion of the suture line with active bleeding. There was a large amount of dense atherosclerotic plaque within the common femoral artery. OPERATIVE PROCEDURE: Following routine patient identification with site and side verification, intravenous sedation was established. The lower abdomen, right groin and thigh were prepped with Betadine solution. Timeout was performed. The VAC dressing was removed from the right groin and upon seeing exposed graft material decision was made to proceed with the planned procedure. General anesthesia was induced. The wound was then extended proximally approximately 2 cm. The anterior aspect of the common femoral artery was then carefully exposed proximally, proximal to the area of graft anastomosis. Bleeding from the suture line was controlled with digital pressure. The femoral artery was mobilized and secured with a vessel loop approximately 2 cm proximal to the graft. The artery was then dissected distally and again encircled with a vessel loop approximately 2 cm distal to the graft. Further distal dissection was then carried out to identify the bifurcation of the common femoral artery. Incision was then made in the medial thigh and the saphenous vein identified. It was of good quality and diameter. A section of vein was mobilized. Side branches were ligated and divided. The vein segment was removed and placed in heparin saline solution. The patient was heparinized. The common femoral artery was then occluded with vascular clamps proximal and distal to the old graft anastomosis. The graft was excised and the james of the artery were debrided. Endarterectomy was performed to remove dense atherosclerotic plaque from within the lumen proximally and distally to improve flow into the deep femoral artery. After careful debridement of the arterial wall, the vein was opened longitudinally to create a patch. It was sutured to the james of the artery with running 6-0 Prolene. Prior to placement of this suture line the arteries were allowed to backbleed and flush. Suture line was completed. Flow was then restored with removal of the vascular clamps. Surgicel was applied to control bleeding from the suture lines. Additional suture was needed on a small tear in the wall of the artery distal to the vein patch which controlled the bleeding well. The sartorius muscle was then freed as far proximally as possible. Attempts to cover the surgical site with the muscle were unsuccessful due to tearing of the muscle and insufficient length. The wound was then copiously irrigated with bacitracin solution. Soft tissue was freed from underneath the skin medially and used to cover over the graft along with a portion of the fibrous tissue from the superior edge of the incision. The graft was completely covered in this manner. The remainder of the wound was left open. The thigh incision was closed with interrupted suture of 3-0 Vicryl and skin agnes. The wound was packed with bacitracin moistened gauze and a sterile dressing applied. The patient was then extubated and taken to the recovery room in stable condition. Faye GATICA/[id number]
[2020-03-13] MEDS: POLYETHYLENE GLYCOL 3350 119 GM BTL PO SCH (15:24)
[2020-03-13] MEDS: morphine SULFATE 4 MG/ML VIAL IVPUSH PRN (16:52)
[2020-03-13] MEDS: ACETAMINOPHEN 325 MG TABLET (FP) PO PRN (21:28)
[2020-03-13] MEDS: ATORVASTATIN CA 20 MG TABLET (FP) PO SCH (21:29)
[2020-03-13] MEDS: QUEtiapine FUMARATE 25 MG TABLET PO SCH (21:30)
[2020-03-13] MEDS: CHLORHEXIDINE GLUCONATE 4% CLEANSER FOR DECOLONIZATION TP SCH (21:51)
[2020-03-13] MEDS: INSULIN (LEVEMIR) 100 UNITS/ML UNITS SQ SCH (21:53)
[2020-03-14] MEDS: GABAPENTIN 300 MG CAPSULE PO SCH ×3 (06:14→21:28)
[2020-03-14] MEDS: INSULIN SLIDING SCALE (NOVOLOG) 1 VIAL SQ SCH ×4 (06:30→21:31)
[2020-03-14 07:56] LABS: ALBUMIN 1.6 g/dl (3.4-5.0); BILIRUBIN,TOTAL 0.6 mg/dL (0.2-1); BLOOD UREA NITROGEN 30.1 mg/dL (7-18); CREATININE 1.2 mg/dL (0.55-1.3); MAGNESIUM 1.9 mg/dL (1.8-2.4); POTASSIUM 4.6 mmol/L (3.5-5.1); TOT PROT 5.8 g/dl (6.4-8.2)
[2020-03-14 08:00] LABS: BASO % 0.3 % (0-2.0); EOS % 3.3 % (0-4.5); HEMATOCRIT 24.7 % (35.4-49); HEMOGLOBIN 8.3 GM/dL (11.7-16.9); LYMPH % 17.1 % (8-40); MCH 29.3 pg (25.7-33.7); MCHC 33.7 g/dl (32.0-35.9); MEAN CELL VOLUME 86.9 fl (80-96); MEAN PLT VOLUME 8.1 fl (7.5-11.1); MONO % 7.8 % (3.8-10.2); NEUT % 71.5 % (42.8-82.8); PLATELET COUNT 216 K/MM3 (134-434); RBC 2.85 M/mm3 (4.00-5.60); WHITE BLOOD COUNT 6.4 K/mm3 (4.0-10.0)
[2020-03-14] MEDS: TAMSULOSIN HCL 0.4 MG CAP PO SCH (08:44)
[2020-03-14] MEDS: AMINO ACIDS/PROTEIN HYDROLYS 30 ML LIQUID.PKT PO SCH ×2 (08:44→17:07)
--- NOTE | 2020-03-14 08:44 | PN ---
Progress Note (short form) - Note Progress Note: VASCULAR SURGERY POD #2 s/p Resection of infected prosthetic graft and repair of right femoral artery with vein patch. Endarterectomy femoral artery (Mauricio) POD #6 s/p Rt BKA (Pineda) No acute events as per RN notes. Patient is alert. Resting comfortably. Following commands. C/o mild right groin incisional tenderness. Denies n/v/f/c, CP, palpitations, SOB or OH. Last Vital Signs Temp Pulse Resp BP Pulse Ox 98.9 F 98 H 17 114/63 96 03/14/20 06:10 03/14/20 06:10 03/14/20 06:10 03/14/20 06:10 03/14/20 06:10 CBC, BMP 03/14/20 06:05 03/14/20 06:05 INR, PTT INR 1.23 (0.83-1.09) H 18 23:05 Fibrinogen > 500.0 mg/dL (238-498) H 03/11/20 23:05 Blood Type Blood Type O POSITIVE 03/11/20 23:05 A/P: 64 yo male POD #2 s/p Resection of infected prosthetic graft and repair of right femoral artery with vein patch. Endarterectomy femoral artery (Mauricio). POD #6 s/p Rt BKA (Pineda) - Acetaminophen for pain control - Wound VAC (M-W-F) - Hold all AC or antiplatelet agents - Continue coreg 12.5 BID, and Digoxin 0.125 - LLE SCD for DVT PPx - Wound cultures grew MRSA/VRE/Proteus at all surgeries, now source control with graft removed - f/u ID: Ertapenem & Daptomycin, may need skilled nursing iv abx? - Tight glycemic control; FSG monitoring; ISS - Trend H/H; transfuse pRBC prn - Cont to monitor surgical wound, if tissue overlying artery breaks down exposing vessel: 1. dc VAC 2. Pack wound with moist 4x4 and cover with abd pad. 3. will need to consult Plastics (Lis) for Gracilis flap - Surgery to cont following Above plan discussed with Dr. Martínez and agrees. Problem List - Problems (1) Status post below knee amputation of right lower extremity Code(s): Z89.511 - ACQUIRED ABSENCE OF RIGHT LEG BELOW KNEE (2) PAD (peripheral artery disease) Code(s): I73.9 - PERIPHERAL VASCULAR DISEASE, UNSPECIFIED (3) CKD stage 3 due to type 2 diabetes mellitus Code(s): E11.22 - TYPE 2 DIABETES MELLITUS W DIABETIC CHRONIC KIDNEY DISEASE; N18.3 - CHRONIC KIDNEY DISEASE, STAGE 3 (MODERATE) (4) Hypertension Code(s): I10 - ESSENTIAL (PRIMARY) HYPERTENSION
[2020-03-14] MEDS: ZINC SULFATE 220 MG CAPSULE (FP) PO SCH (08:59)
[2020-03-14] MEDS: MULTIVITAMINS (DAILY MVI) TABLET (FP) PO SCH (08:59)
[2020-03-14] MEDS: VALSARTAN 160 MG TABLET PO SCH (08:59)
[2020-03-14] MEDS: FAMOTIDINE 20 MG TABLET PO SCH ×2 (08:59→21:27)
[2020-03-14] MEDS: DIGOXIN 0.125 MG TABLET (FP) PO SCH (08:59)
[2020-03-14] MEDS: DOCUSATE SODIUM 100 MG CAPSULE (FP) PO SCH ×2 (08:59→21:26)
[2020-03-14] MEDS: ERTAPENEM SODIUM 1 GM in SODIUM CHLORIDE 50 ML IVPB SCH (09:00)
[2020-03-14] MEDS: CARVEDILOL 12.5 MG TABLET (FP) PO SCH ×2 (09:00→21:26)
[2020-03-14] MEDS: POLYETHYLENE GLYCOL 3350 119 GM BTL PO SCH (09:01)
[2020-03-14] MEDS: MAGNESIUM OXIDE 400 MG TABLET (FP) PO SCH ×2 (09:01→21:27)
[2020-03-14 09:33] LABS: PHOSPHOROUS 3.7 mg/dL (2.5-4.9)
--- NOTE | 2020-03-14 09:59 | PN ---
Progress Note (short form) - Note Progress Note: remainder of graft removed and femoral artery vein patch placed 03/12 s/p BKA s/p washout with infected graft removal and vac placement no complaints Vital Signs Period Temp Pulse Resp BP Sys/Leahy Pulse Ox Last 24 Hr 97.6 F-98.9 F 85-101 11-17 114-151/61-121 96-100 cor-rrr lungs clear abd soft,nt groin wound is clean, no exposed vessels no purulence no erythema bka stump incisions intact, no erythema, no drainage Microbiology 03/03/20 09:24 Groin - Right Gram Stain - Final 03/03/20 09:24 Groin - Right Wound Culture - Final Vr Ec Faecium Mr S Aureus Yeast Like Organism 02/26/20 14:37 Groin - Right Gram Stain - Final 02/26/20 14:37 Groin - Right Wound Culture - Final Klebsiella Pneumoniae - Esbl Vr Ec Faecium Enterococcus Faecalis 02/24/20 18:00 Blood - Peripheral Venous Blood Culture - Final NO GROWTH AFTER 5 DAYS INCUBATION 02/24/20 18:15 Blood - Peripheral Venous Blood Culture - Final NO GROWTH AFTER 5 DAYS INCUBATION 02/24/20 15:30 Groin - Right Gram Stain - Final 02/24/20 15:30 Groin - Right Wound Culture - Final Klebsiella Pneumoniae - Esbl Vr Ec Faecium 02/21/20 15:23 Blood - Peripheral Venous Blood Culture - Final NO GROWTH AFTER 5 DAYS INCUBATION 02/21/20 15:35 Blood - Peripheral Venous Blood Culture - Final NO GROWTH AFTER 5 DAYS INCUBATION 02/24/20 00:30 Urine - Urine - Catheterized Urine Culture - Final NO GROWTH OBTAINED 02/05/20 07:50 Blood - Peripheral Venous Blood Culture - Final NO GROWTH AFTER 5 DAYS INCUBATION 02/05/20 08:08 Blood - Peripheral Venous Blood Culture - Final NO GROWTH AFTER 5 DAYS INCUBATION 02/03/20 13:05 Blood - Peripheral Venous Blood Culture - Final NO GROWTH AFTER 5 DAYS INCUBATION 02/03/20 13:05 Blood - Peripheral Venous Blood Culture - Final NO GROWTH AFTER 5 DAYS INCUBATION 02/03/20 16:20 Toe - Right Hallux Gram Stain - Final 02/03/20 16:20 Toe - Right Hallux Wound Culture - Final Klebsiella Pneumoniae - Esbl Proteus Mirabilis Enterococcus Faecalis CBC, BMP 03/14/20 06:05 03/14/20 06:05 a/p s/p bleeding requiring surgery overnight with placement of vein patch and removal of graft 03/12/ s/p BKA s/p removal infected graft contact isolation for MDRO continue daptomycin and ertapenem-since 02/27/20 -to continue monitroy crp and cpk PVD dementia schizophrenia will d/w surgery Problem List - Problems (1) Fever Code(s): R50.9 - FEVER, UNSPECIFIED (2) Diabetic foot infection Code(s): E11.628 - TYPE 2 DIABETES MELLITUS WITH OTHER SKIN COMPLICATIONS; L08.9 - LOCAL INFECTION OF THE SKIN AND SUBCUTANEOUS TISSUE, UNSP (3) PVD (peripheral vascular disease) Code(s): I73.9 - PERIPHERAL VASCULAR DISEASE, UNSPECIFIED (4) CKD (chronic kidney disease) Code(s): N18.9 - CHRONIC KIDNEY DISEASE, UNSPECIFIED (5) Anemia Code(s): D64.9 - ANEMIA, UNSPECIFIED
--- NOTE | 2020-03-14 09:59 | PROC ---
VAC Application - Indications Surgical A decision was made to utilize Negative Pressure Therapy (VAC) to assist in: expedite wound closure through promotion of granulation tissue formation. - Wound description Wound location: Other (Right groin) Length (cm): 4.5 Width (cm): 3 Depth (cm): 2 Wound area (sq cm): 13.50 Wound Description: Muscle exposed: Yes, Tendon exposed: No, Bone exposed: No, Undermining: No - Device VAC Selection: NPT - Procedure Area cleansed. Prepped/draped. Black foam tailored to fit just inside of wound borders to encourage wound contracture. An occlusive dressing applied. Suction disc placed in location so as not to be uncomfortable for the patient or cause any pressure point. Good seal as verified by complete foam collapse and no leak on unit monitor. Pressure set to 125 mmHg, continuous. Dressing changes: -W- - CPT Code CPT code: [id number] <50 sq cm
[2020-03-14] MEDS ORDERED: PT OWN MED DRAWER 7, Y5N ONE ×2 (10:22→17:46)
[2020-03-14] MEDS: MUPIROCIN 2% TOPICAL OINTMENT FOR DECOLONIZATION NS SCH (11:06)
[2020-03-14] MEDS: DAPTOMYCIN 400 MG in SODIUM CHLORIDE 50 ML IVPB SCH (11:07)
--- NOTE | 2020-03-14 11:18 | PN ---
Progress Note (short form) - Note Progress Note: s: no cp sob palps dizzy Current Medications Generic Name Dose Route Start Last Admin Trade Name Freq PRN Reason Stop Dose Admin Acetaminophen 650 mg 03/08/20 14:48 03/13/20 21:28 Tylenol - PO 650 mg Q4H PRN Administration FEVER Amino Acids 30 ml 03/08/20 17:30 03/14/20 08:44 Prosource No Carb Liquid Pkt PO 30 ml BID@0800,1730 [facility] Administration Artificial Tears 1 drop 03/08/20 14:48 Artificial Tears OU Q6H PRN DRY EYES Atorvastatin Calcium 20 mg 03/08/20 22:00 03/13/20 21:29 Lipitor - PO 20 mg HS HUGO Administration Carvedilol 12.5 mg 03/08/20 22:00 03/14/20 09:00 Coreg - PO 12.5 mg BID HUGO Administration Chlorhexidine Gluconate 1 applic 03/12/20 22:00 03/13/20 21:51 Hibiclens For Decolonization - TP 1 applic HS HUGO Administration Digoxin 0.125 mg 03/09/20 10:00 03/14/20 08:59 Lanoxin - PO 0.125 mg DAILY [facility]GO Administration Docusate Sodium 100 mg 03/08/20 22:00 03/14/20 08:59 Colace - PO 100 mg BID HUGO Administration Famotidine 20 mg 03/08/20 22:00 03/14/20 08:59 Pepcid - PO 20 mg BID HUGO Administration Fentanyl 50 mcg 03/11/20 23:46 Sublimaze Injection - IVPUSH [id number] PRN PAIN-PACU ORDER X 4 DOSES ONLY Gabapentin 300 mg 03/08/20 22:00 03/14/20 06:14 Neurontin - PO 300 mg TID HUGO Administration Daptomycin 400 mg/ Sodium 50 mls @ 100 mls/hr 03/09/20 10:00 03/14/20 11:07 Chloride IVPB 100 mls/hr DAILY [facility]GO Administration Protocol Ertapenem 1 gm/ Sodium 50 mls @ 100 mls/hr 03/09/20 10:00 03/14/20 09:00 Chloride IVPB 100 mls/hr DAILY [facility] Administration Insulin Aspart 1 vial 03/08/20 16:30 03/14/20 06:30 Novolog Vial Sliding Scale - SQ 10 units ACHS [facility]GO Administration Protocol Insulin Detemir 30 units 03/08/20 22:00 03/13/20 21:53 Levemir Vial SQ 30 units HS HUGO Administration Magnesium Oxide 400 mg 03/08/20 22:00 03/14/20 09:01 Mag-Ox - PO 400 mg BID HUGO Administration Multivitamins/Minerals/Vitamin C 1 tab 03/09/20 10:00 03/14/20 08:59 Tab-A-Vit - PO 1 tab DAILY [facility] Administration Mupirocin 1 applic 03/12/20 10:00 03/14/20 11:06 Bactroban Ointment (For Decolonization) - NS 03/17/20 09:59 1 applic BID [facility]GO Administration Ondansetron HCl 4 mg 03/11/20 23:46 Zofran Injection IVPUSH Q6H PRN NAUSEA AND/OR VOMITING Polyethylene Glycol 17 gm 03/09/20 10:00 03/14/20 09:01 Miralax (For Daily Use) - PO 17 gm DAILY [facility] Administration Promethazine HCl 12.5 mg 03/11/20 23:46 Phenergan Injection - IVPUSH Q6H PRN NAUSEA-FOR RESCUE AFTER 15 MIN Quetiapine Fumarate 50 mg 03/08/20 22:00 03/13/20 21:30 Seroquel - PO 50 mg HS HUGO Administration Tamsulosin HCl 0.4 mg 03/09/20 08:30 03/14/20 08:44 Flomax - PO 0.4 mg DAILY@0830 [facility] Administration Valsartan 320 mg 03/09/20 10:00 03/14/20 08:59 Diovan - PO 320 mg DAILY [facility] Administration Zinc Sulfate 220 mg 03/09/20 10:00 03/14/20 08:59 Orazinc - PO 220 mg DAILY [facility] Administration Vital Signs Period Temp Pulse Resp BP Sys/Leahy Pulse Ox Last 24 Hr 97.6 F-98.9 F 94-101 13-17 114-151/61-72 96-100 Constitutional: Yes: Well Nourished, No Distress Eyes: No: Sclera Icterus HENT: No: Nasal Congestion Respiratory: Yes: CTA Bilaterally. No: Accessory Muscle Use, Rales, Wheezes Gastrointestinal: Yes: Normal Bowel Sounds. No: Distention, Hepatomegaly, Palpable Mass, Tenderness Cardiovascular: Yes: Regular Rate and Rhythm JVD: No Heart Sounds: Yes: S1, S2. No: Gallop Murmur: No: Systolic Murmur, Diastolic Murmur Edema: No Integumentary: No: Jaundice Neurological: Yes: Alert. No: Seizure Psychiatric: No: Agitated CBC, BMP 03/14/20 06:05 03/14/20 06:05 Assessment/Plan echo 01/2020: normal LVEF, nl RV, nl valve function. CXR: ATX vs infiltrate R base, no effusions/congestion mibi 01/2020 mod sized area of inferolateral scar, no ischemia, EF 45% tele: sr postop bleeding, PAD - s/p R fem-pop, BKA - 03/11 transferred to ICU and taken urgently to OR for bleeding - stable H/H after OR, received IVF, PRBCs with stable BP - manage per vascular CAD: - no angina sx's here - preop mibi shows inferolateral scar, no ischemia. mildly reduced EF. - continue statin, aspirin - on digoxin for unclear indication, levels ok here, continue--outpt f/u with prior treating physician DM: -per hospitalist HTN: - cont current meds HPL: -cont statin
[2020-03-14] MEDS ORDERED: ARTIFICIAL TEARS (POLYVINYL ALCOHOL) OPTH DROPS OU PRN (11:45)
[2020-03-14] MEDS ORDERED: PROMETHAZINE HCL 25 MG/1 ML VIAL IVPUSH PRN (11:45)
[2020-03-14] MEDS ORDERED: ONDANSETRON 4 MG/2 ML VIAL IVPUSH PRN (11:45)
[2020-03-14] MEDS: ACETAMINOPHEN 325 MG TABLET (FP) PO PRN ×2 (13:30→21:30)
--- NOTE | 2020-03-14 14:12 | PN ---
Progress Note (short form) - Note Progress Note: Resting in NAD. Some discomfort at the surgical site. Denies CP or SOB. Seen by vascular surgery this AM. Intake & Output 03/11/20 03/12/20 03/13/20 03/14/20 23:59 23:59 23:59 23:59 Intake Total 800 2175 1325 60 Output Total 1900 3000 1100 Balance 800 275 -1295 -1040 Last Vital Signs Temp Pulse Resp BP Pulse Ox 98.1 F 98 H 13 123/69 98 03/14/20 09:00 03/14/20 09:00 03/14/20 09:00 03/14/20 09:00 03/14/20 09:00 Active Medications Acetaminophen (Tylenol -) 650 mg PO Q4H PRN PRN Reason: FEVER Last Admin: 03/14/20 13:30 Dose: 650 mg Documented by: Amino Acids (Prosource No Carb Liquid Pkt) 30 ml PO BID@0800,1730 [facility] Artificial Tears (Artificial Tears) 1 drop OU Q6H PRN PRN Reason: DRY EYES Carvedilol (Coreg -) 12.5 mg PO BID [facility] Digoxin (Lanoxin -) 0.125 mg PO DAILY [facility] Docusate Sodium (Colace -) 100 mg PO BID [facility] Famotidine (Pepcid -) 20 mg PO BID [facility] Gabapentin (Neurontin -) 300 mg PO TID [facility] Last Admin: 03/14/20 13:30 Dose: 300 mg Documented by: Ertapenem 1 gm/ Sodium (Chloride) 50 mls @ 100 mls/hr IVPB DAILY [facility] Insulin Aspart (Novolog Vial Sliding Scale -) 1 vial SQ ACHS [facility]; Protocol Insulin Detemir (Levemir Vial) 30 units SQ HS [facility] Magnesium Oxide (Mag-Ox -) 400 mg PO BID [facility] Multivitamins/Minerals/Vitamin C (Tab-A-Vit -) 1 tab PO DAILY [facility] Ondansetron HCl (Zofran Injection) 4 mg IVPUSH Q6H PRN PRN Reason: NAUSEA AND/OR VOMITING Polyethylene Glycol (Miralax (For Daily Use) -) 17 gm PO DAILY [facility] Promethazine HCl (Phenergan Injection -) 12.5 mg IVPUSH Q6H PRN PRN Reason: NAUSEA-FOR RESCUE AFTER 15 MIN Quetiapine Fumarate (Seroquel -) 50 mg PO HS [facility] Tamsulosin HCl (Flomax -) 0.4 mg PO DAILY@0830 [facility] Valsartan (Diovan -) 320 mg PO DAILY [facility] Zinc Sulfate (Orazinc -) 220 mg PO DAILY [facility] PE: Gen: awake, alert, NAD HEENT: EOMI, Atraumatic PULM: clear CV: regular, s1s2 Abd: soft Ext: R BKA, R fem/pop bypass site with wound vac in place Neuro: Non-focal Laboratory Results - last 24 hr 03/13/20 03/13/20 03/14/20 16:49 21:33 06:05 WBC 6.4 RBC 2.85 L Hgb 8.3 L Hct 24.7 L MCV 86.9 MCH 29.3 MCHC 33.7 RDW 15.0 Plt Count 216 MPV 8.1 Absolute Neuts (auto) 4.6 Neutrophils % 71.5 Lymphocytes % 17.1 Monocytes % 7.8 Eosinophils % 3.3 D Basophils % 0.3 Nucleated RBC % 0 Sodium Potassium Chloride Carbon Dioxide Anion Gap BUN Creatinine Est GFR (CKD-EPI)AfAm Est GFR (CKD-EPI)NonAf POC Glucometer 362 188 Random Glucose Calcium Phosphorus Magnesium Total Bilirubin AST ALT Alkaline Phosphatase Creatine Kinase Creatine Kinase Index CK-MB (CK-2) Total Protein Albumin 03/14/20 03/14/20 03/14/20 06:05 06:05 06:05 WBC RBC Hgb Hct MCV MCH MCHC RDW Plt Count MPV Absolute Neuts (auto) Neutrophils % Lymphocytes % Monocytes % Eosinophils % Basophils % Nucleated RBC % Sodium 141 Potassium 4.6 Chloride 110 H Carbon Dioxide 29 Anion Gap 2 L BUN 30.1 H Creatinine 1.2 Est GFR (CKD-EPI)AfAm 74.66 Est GFR (CKD-EPI)NonAf 64.42 POC Glucometer Random Glucose 300 H Calcium 8.0 L Phosphorus 3.7 Magnesium 1.9 Total Bilirubin 0.6 AST 44 H ALT 17 Alkaline Phosphatase 88 Creatine Kinase 1803 H Creatine Kinase Index 0.5 CK-MB (CK-2) 9.9 H Cancelled Total Protein 5.8 L Albumin 1.6 L 03/14/20 03/14/20 06:27 11:37 WBC RBC Hgb Hct MCV MCH MCHC RDW Plt Count MPV Absolute Neuts (auto) Neutrophils % Lymphocytes % Monocytes % Eosinophils % Basophils % Nucleated RBC % Sodium Potassium Chloride Carbon Dioxide Anion Gap BUN Creatinine Est GFR (CKD-EPI)AfAm Est GFR (CKD-EPI)NonAf POC Glucometer 288 325 Random Glucose Calcium Phosphorus Magnesium Total Bilirubin AST ALT Alkaline Phosphatase Creatine Kinase Creatine Kinase Index CK-MB (CK-2) Total Protein Albumin IMP: POD #2 : Resection of infected prosthetic graft and repair of right femoral artery with vein patch angioplasty. Endarterectomy femoral artery Disrupted suture line at recent prosthetic graft site on femoral artery DM schizophrenia HTN HLD GERD dementia, PAD MRSA PLAN: - Pain control - Wound vac - Follow H & H - Normal transfusion thersholds - Hold all AC or antiplatelet agents until cleared by vascular - Continue coreg 12.5 BID, and digoxin 0.125 - ABX Per ID - I/Os - Follow BGMs, insulin coverage scale and Levemir - SCDs - Floor - DNR/DNI Dr Levine
--- NOTE | 2020-03-14 14:25 | PN ---
Physical Exam: SUBJECTIVE: Patient seen and examined, family member at bedside, discussed condition with him OBJECTIVE: Vital Signs Period Temp Pulse Resp BP Sys/Leahy Pulse Ox Last 24 Hr 97.6 F-98.9 F 94-101 13-17 114-151/61-72 96-100 GENERAL: The patient is awake, no oriented HEAD: Normal with no signs of trauma. EYES: PERRL, extraocular movements intact, ENT: moist mucous membranes. LUNGS: Breath sounds equal, clear to auscultation bilaterally, no wheezes, no crackles, no accessory muscle use. HEART: Regular rate and rhythm, S1, S2 without murmur, rub or gallop. ABDOMEN: Soft, nontender, nondistended, normoactive bowel sounds, EXTREMITIES:R bka, wound wrapped, r thigh with agnes, no erythema surrounding them . SKIN: Warm, dry, normal turgor, no rashes or lesions noted CBC, BMP 03/14/20 06:05 03/14/20 06:05 Active Medications Generic Name Dose Route Start Last Admin Trade Name Jimq PRN Reason Stop Dose Admin Acetaminophen 650 mg 03/14/20 11:45 03/14/20 13:30 Tylenol - PO 650 mg Q4H PRN Administration FEVER Amino Acids 30 ml 03/14/20 17:30 Prosource No Carb Liquid Pkt PO BID@0800,1730 [facility] Artificial Tears 1 drop 03/14/20 11:45 Artificial Tears OU Q6H PRN DRY EYES Carvedilol 12.5 mg 03/14/20 22:00 Coreg - PO BID [facility] Digoxin 0.125 mg 03/15/20 10:00 Lanoxin - PO DAILY [facility] Docusate Sodium 100 mg 03/14/20 22:00 Colace - PO BID [facility] Famotidine 20 mg 03/14/20 22:00 Pepcid - PO BID [facility] Gabapentin 300 mg 03/14/20 14:00 03/14/20 13:30 Neurontin - PO 300 mg TID HUGO Administration Ertapenem 1 gm/ Sodium 50 mls @ 100 mls/hr 03/15/20 10:00 Chloride IVPB DAILY [facility] Insulin Aspart 1 vial 03/14/20 16:30 Novolog Vial Sliding Scale - SQ ACHS [facility] Protocol Insulin Detemir 30 units 03/14/20 22:00 Levemir Vial SQ HS [facility] Magnesium Oxide 400 mg 03/14/20 22:00 Mag-Ox - PO BID [facility] Multivitamins/Minerals/Vitamin C 1 tab 03/15/20 10:00 Tab-A-Vit - PO DAILY [facility] Ondansetron HCl 4 mg 03/14/20 11:45 Zofran Injection IVPUSH Q6H PRN NAUSEA AND/OR VOMITING Polyethylene Glycol 17 gm 03/15/20 10:00 Miralax (For Daily Use) - PO DAILY [facility] Promethazine HCl 12.5 mg 03/14/20 11:45 Phenergan Injection - IVPUSH Q6H PRN NAUSEA-FOR RESCUE AFTER 15 MIN Quetiapine Fumarate 50 mg 03/14/20 22:00 Seroquel - PO HS [facility] Tamsulosin HCl 0.4 mg 03/15/20 08:30 Flomax - PO DAILY@0830 [facility] Valsartan 320 mg 03/15/20 10:00 Diovan - PO DAILY [facility] Zinc Sulfate 220 mg 03/15/20 10:00 Orazinc - PO DAILY [facility] ASSESSMENT/PLAN: Patient is a 64 year old male with a significant past medical history of DM, schizophrenia, HTN, HLD, GERD, dementia, EtOH use disorder who had his right knee great toe amputated apx 1 month prior to admission, presents to the ED on 02/03/2020 with right 2nd digit gangrene #s/p Right BKA - preformed by Dr. Pineda - [facility] for DVT ppx - acetaminophen for pain control - POD 6 #s/p resection of infected prosthetic graft and repair of R femoral artery with vein patch, endarterectomy - POD 2 - followed by surgery, keep off AC - preformed by Dr. Gurrola - wound cultures grew MRSA/VRE/proteus - currently on Ertapenem and Daptomycin - wound vac - will need to discuss nursing home abx with patient #CAD - continue coreg 12.5 bid and digoxin 0.125 - echo 01/2020: normal LVEF, nl RV, nl valve function - mibi 01/2020 mod sized area of inferolateral scar, no ischemia, EF 45% - valsartan 320 for htn - followed by cardio #DM - BGM's, SS levemir 30 #anemia - s/p surgery - continue to trend h/h , current hgb 8.3 #Ck trending up - continue to trend, assess if patient needs more fluids DVT ppx - SCD on left foot] diet: diabetic diet dispo: monitor on 5. DNR/DNI Visit type - Emergency Visit Emergency Visit: No - New Patient This patient is new to me today: Yes Date on this admission: 03/16/20 - Critical Care Critical Care patient: No ATTENDING PHYSICIAN STATEMENT I saw and evaluated the patient. I reviewed the resident's note and discussed the case with the resident. I agree with the resident's findings and plan as documented. SUBJECTIVE: OBJECTIVE: ASSESSMENT AND PLAN:
--- NOTE | 2020-03-14 16:59 | PN ---
Physical Exam: SUBJECTIVE: Patient seen and examined. No overnight events. OBJECTIVE: Vital Signs Period Temp Pulse Resp BP Sys/Leahy Pulse Ox Last 24 Hr 97.6 F-99.6 F 94-101 13-18 114-151/61-72 96-100 GENERAL: AAOX2. in NAD HEENT: NC, AT, MMM LUNGS: Breath sounds reduced at bases. HEART: RRR, normal S1 and S2 without murmur, rub or gallop. ABDOMEN: Soft, nontender, not distended. normoactive bowelsounds LOWER EXTREMITIES: 2+ pulses, Rt leg BKA, wound vac attached to right groin NEUROLOGICAL: Normal speech. Gait not assessed PSYCHIATRIC: Cooperative. Good eye contact. Appropriate mood and affect. SKIN: Warm, dry. Laboratory Results - last 24 hr 03/13/20 03/14/20 03/14/20 21:33 06:05 06:05 WBC 6.4 RBC 2.85 L Hgb 8.3 L Hct 24.7 L MCV 86.9 MCH 29.3 MCHC 33.7 RDW 15.0 Plt Count 216 MPV 8.1 Absolute Neuts (auto) 4.6 Neutrophils % 71.5 Lymphocytes % 17.1 Monocytes % 7.8 Eosinophils % 3.3 D Basophils % 0.3 Nucleated RBC % 0 Sodium 141 Potassium 4.6 Chloride 110 H Carbon Dioxide 29 Anion Gap 2 L BUN 30.1 H Creatinine 1.2 Est GFR (CKD-EPI)AfAm 74.66 Est GFR (CKD-EPI)NonAf 64.42 POC Glucometer 188 Random Glucose 300 H Calcium 8.0 L Phosphorus Magnesium 1.9 Total Bilirubin 0.6 AST 44 H ALT 17 Alkaline Phosphatase 88 Creatine Kinase Creatine Kinase Index CK-MB (CK-2) Total Protein 5.8 L Albumin 1.6 L 03/14/20 03/14/20 03/14/20 06:05 06:05 06:27 WBC RBC Hgb Hct MCV MCH MCHC RDW Plt Count MPV Absolute Neuts (auto) Neutrophils % Lymphocytes % Monocytes % Eosinophils % Basophils % Nucleated RBC % Sodium Potassium Chloride Carbon Dioxide Anion Gap BUN Creatinine Est GFR (CKD-EPI)AfAm Est GFR (CKD-EPI)NonAf POC Glucometer 288 Random Glucose Calcium Phosphorus 3.7 Magnesium Total Bilirubin AST ALT Alkaline Phosphatase Creatine Kinase 1803 H Creatine Kinase Index 0.5 CK-MB (CK-2) 9.9 H Cancelled Total Protein Albumin 03/14/20 11:37 WBC RBC Hgb Hct MCV MCH MCHC RDW Plt Count MPV Absolute Neuts (auto) Neutrophils % Lymphocytes % Monocytes % Eosinophils % Basophils % Nucleated RBC % Sodium Potassium Chloride Carbon Dioxide Anion Gap BUN Creatinine Est GFR (CKD-EPI)AfAm Est GFR (CKD-EPI)NonAf POC Glucometer 325 Random Glucose Calcium Phosphorus Magnesium Total Bilirubin AST ALT Alkaline Phosphatase Creatine Kinase Creatine Kinase Index CK-MB (CK-2) Total Protein Albumin Active Medications Generic Name Dose Route Start Last Admin Trade Name Freq PRN Reason Stop Dose Admin Acetaminophen 650 mg 03/14/20 11:45 03/14/20 13:30 Tylenol - PO 650 mg Q4H PRN Administration FEVER Amino Acids 30 ml 03/14/20 17:30 Prosource No Carb Liquid Pkt PO BID@0800,1730 [facility] Artificial Tears 1 drop 03/14/20 11:45 Artificial Tears OU Q6H PRN DRY EYES Carvedilol 12.5 mg 03/14/20 22:00 Coreg - PO BID [facility] Digoxin 0.125 mg 03/15/20 10:00 Lanoxin - PO DAILY [facility] Docusate Sodium 100 mg 03/14/20 22:00 Colace - PO BID [facility] Famotidine 20 mg 03/14/20 22:00 Pepcid - PO BID [facility] Gabapentin 300 mg 03/14/20 14:00 03/14/20 13:30 Neurontin - PO 300 mg TID [facility] Administration Ertapenem 1 gm/ Sodium 50 mls @ 100 mls/hr 03/15/20 10:00 Chloride IVPB DAILY [facility] Insulin Aspart 1 vial 03/14/20 16:30 Novolog Vial Sliding Scale - SQ ACHS [facility] Protocol Insulin Detemir 30 units 03/14/20 22:00 Levemir Vial SQ HS [facility] Magnesium Oxide 400 mg 03/14/20 22:00 Mag-Ox - PO BID [facility] Multivitamins/Minerals/Vitamin C 1 tab 03/15/20 10:00 Tab-A-Vit - PO DAILY [facility] Ondansetron HCl 4 mg 03/14/20 11:45 Zofran Injection IVPUSH Q6H PRN NAUSEA AND/OR VOMITING Polyethylene Glycol 17 gm 03/15/20 10:00 Miralax (For Daily Use) - PO DAILY [facility] Promethazine HCl 12.5 mg 03/14/20 11:45 Phenergan Injection - IVPUSH Q6H PRN NAUSEA-FOR RESCUE AFTER 15 MIN Quetiapine Fumarate 50 mg 03/14/20 22:00 Seroquel - PO HS [facility] Tamsulosin HCl 0.4 mg 03/15/20 08:30 Flomax - PO DAILY@0830 [facility] Valsartan 320 mg 03/15/20 10:00 Diovan - PO DAILY [facility] Zinc Sulfate 220 mg 03/15/20 10:00 Orazinc - PO DAILY [facility] ASSESSMENT/PLAN: 64 YO M PMH HTN, HLD, DM, GERD, dementia, alcohol use, and schizophrenia preented to ICU for Right femoral artery hemorrhage management & underwent Resection of infected prosthetic graft and repair of right femoral artery with vein patch angioplasty. POD#3 #Neuro - AAOX2 - no acute neuro issues at this time Vascular -Right femoral artery hemorrhage. s/p Resection of infected prosthetic graft and repair of right femoral artery with vein patch angioplasty. Endarterectomy femoral artery -found Disrupted suture line at recent prosthetic graft site on femoral artery - will monitor for signs of bleeding - continue holding AC or antiplatelet agents - SCD's #Cardio -ECHO: EF 50% cardio -c/w coreg 12.5 BID, and digoxin 0.125 -cardio consult appreciated. preop mibi shows inferolateral scar, no ischemia. mildly reduced EF. -c/w statin, aspirin #Pulm - no acute pathology at this time ID - Wound cultures grew MRSA and VRE and proteus - source control with graft removed - ertapenem 1 gm and daptomycin 400 mg daily Heme - Anemia of chronic disease 2/2 CKD - f/u cbc, type screen, coags - s/p 1 unit of prbc on 02/24 - monitor CBC daily, transfuse if < 7 Renal - CKD (baseline Cr 1.4-1.7) - Renal function stable, no acute indication for dialysis at this time Endo #IDDM - BGM - ISS ACHS - levemir 45 units hs DVT hold AC given hemorrhage Visit type - Emergency Visit Emergency Visit: Yes ED Registration Date: 02/03/20 Care time: The patient presented to the Emergency Department on the above date and was hospitalized for further evaluation of their emergent condition. - New Patient This patient is new to me today: No - Critical Care Critical Care patient: No ATTENDING PHYSICIAN STATEMENT I saw and evaluated the patient. I reviewed the resident's note and discussed the case with the resident. I agree with the resident's findings and plan as documented. SUBJECTIVE: OBJECTIVE: ASSESSMENT AND PLAN:
[2020-03-14] MEDS ORDERED: INSULIN (NOVOLOG) ASPART 100 UNITS/ML 10ML VIAL ONE (17:45)
[2020-03-14] MEDS ORDERED: QUEtiapine FUMARATE 25 MG TABLET ONE (21:19)
[2020-03-14] MEDS: QUEtiapine FUMARATE 50 MG TABLET PO SCH (21:29)
[2020-03-14] MEDS: INSULIN (LEVEMIR) 100 UNITS/ML UNITS SQ SCH (21:30)
[2020-03-14] MEDS ORDERED: ATORVASTATIN CA 20 MG TABLET (FP) PO SCH (22:00)
[2020-03-15] MEDS: GABAPENTIN 300 MG CAPSULE PO SCH ×3 (06:32→22:02)
[2020-03-15] MEDS: INSULIN SLIDING SCALE (NOVOLOG) 1 VIAL SQ SCH ×4 (06:42→22:03)
--- NOTE | 2020-03-15 08:19 | PN ---
Progress Note (short form) - Note Progress Note: VASCULAR SURGERY POD #3 s/p Resection of infected prosthetic graft and repair of right femoral artery with vein patch. Endarterectomy femoral artery (Mauriico) POD #7 s/p Rt BKA (Pineda) No acute events as per RN notes. Patient is alert. Resting comfortably. Following commands. C/o mild right groin incisional tenderness. Denies n/v/f/c, CP, palpitations, SOB or OH. Last Vital Signs Temp Pulse Resp BP Pulse Ox 98.3 F 85 18 142/67 98 03/15/20 06:00 03/15/20 06:00 03/15/20 06:00 03/15/20 06:00 03/15/20 06:00 CBC, BMP 03/14/20 06:05 03/14/20 06:05 PE: Gen: A&O X3 Resp: breathing comfortably RLE: groin wound vac in place, BKA site dressing clean, warm and pink. A/P: 64 yo male POD #2 s/p Resection of infected prosthetic graft and repair of right femoral artery with vein patch. Endarterectomy femoral artery (Hugocrissu m). POD #6 s/p Rt BKA (Pineda) - Acetaminophen for pain control - Wound VAC (M-W-F) - Hold all AC or antiplatelet agents - Continue coreg 12.5 BID, and Digoxin 0.125 - LLE SCD for DVT PPx - Wound cultures grew MRSA/VRE/Proteus at all surgeries, now source control with graft removed - f/u ID: Ertapenem & Daptomycin, may need baker test iv abx? - Tight glycemic control; FSG monitoring; ISS - Trend H/H; transfuse pRBC prn - Cont to monitor surgical wound, if tissue overlying artery breaks down exposing vessel: 1. dc VAC 2. Pack wound with moist 4x4 and cover with abd pad. 3. will need to consult Plastics (Lis) for Gracilis flap - Surgery to cont following Problem List - Problems (1) Infected surgical wound Code(s): T81.49XA - INFECTION FOLLOWING A PROCEDURE, OTHER SURGICAL SITE, INIT
[2020-03-15 08:42] LABS: HEMATOCRIT 27.1 % (35.4-49); HEMOGLOBIN 9.1 GM/dL (11.7-16.9); MCH 29.3 pg (25.7-33.7); MCHC 33.5 g/dl (32.0-35.9); MEAN CELL VOLUME 87.3 fl (80-96); MEAN PLT VOLUME 8.1 fl (7.5-11.1); PLATELET COUNT 236 K/MM3 (134-434); WHITE BLOOD COUNT 7.9 K/mm3 (4.0-10.0)
[2020-03-15 09:12] LABS: ALBUMIN 1.7 g/dl (3.4-5.0); BILIRUBIN,TOTAL 0.6 mg/dL (0.2-1); BLOOD UREA NITROGEN 20.6 mg/dL (7-18); CALCIUM 8.6 mg/dL (8.5-10.1); CREATININE 1.1 mg/dL (0.55-1.3); TOT PROT 6.3 g/dl (6.4-8.2)
[2020-03-15] MEDS ORDERED: DAPTOMYCIN 400 MG in SODIUM CHLORIDE 50 ML IVPB SCH (10:00)
--- NOTE | 2020-03-15 10:00 | PN ---
Progress Note (short form) - Note Progress Note: S: No events overnight. No fevers. Patient alert and talkative. Doesn't express any issues O: Vital Signs Temperature 98.7 F 03/15/20 14:00 Pulse Rate 95 H 03/15/20 14:00 Respiratory Rate 18 03/15/20 14:00 Blood Pressure 115/49 L 03/15/20 14:00 O2 Sat by Pulse Oximetry (%) 95 03/15/20 14:00 PE: Gen: NAD, awake, alert, sitting up in bed watching TV HEENT: Nc/AT, TERRI, MMM Neck: No JVD LUNG: CTA b/l without wheezes/rales CARD: RRR no murmurs ABD: Soft, NT/ND, normoactive BS EXT: R upper thigh post-surgical wound healing with stables, C/D/I. R BKA noted with overlying bandage w/o drainage. Skin: See above CBC, BMP 03/15/20 07:05 03/15/20 07:05 Microbiology 03/03/20 09:24 Groin - Right Gram Stain - Final 03/03/20 09:24 Groin - Right Wound Culture - Final Vr Ec Faecium Mr S Aureus Yeast Like Organism 02/26/20 14:37 Groin - Right Gram Stain - Final 02/26/20 14:37 Groin - Right Wound Culture - Final Klebsiella Pneumoniae - Esbl Vr Ec Faecium Enterococcus Faecalis 02/24/20 18:00 Blood - Peripheral Venous Blood Culture - Final NO GROWTH AFTER 5 DAYS INCUBATION 02/24/20 18:15 Blood - Peripheral Venous Blood Culture - Final NO GROWTH AFTER 5 DAYS INCUBATION 02/24/20 15:30 Groin - Right Gram Stain - Final 02/24/20 15:30 Groin - Right Wound Culture - Final Klebsiella Pneumoniae - Esbl Vr Ec Faecium 02/21/20 15:23 Blood - Peripheral Venous Blood Culture - Final NO GROWTH AFTER 5 DAYS INCUBATION 02/21/20 15:35 Blood - Peripheral Venous Blood Culture - Final NO GROWTH AFTER 5 DAYS INCUBATION 02/24/20 00:30 Urine - Urine - Catheterized Urine Culture - Final NO GROWTH OBTAINED 02/05/20 07:50 Blood - Peripheral Venous Blood Culture - Final NO GROWTH AFTER 5 DAYS INCUBATION 02/05/20 08:08 Blood - Peripheral Venous Blood Culture - Final NO GROWTH AFTER 5 DAYS INCUBATION 02/03/20 13:05 Blood - Peripheral Venous Blood Culture - Final NO GROWTH AFTER 5 DAYS INCUBATION 02/03/20 13:05 Blood - Peripheral Venous Blood Culture - Final NO GROWTH AFTER 5 DAYS INCUBATION 02/03/20 16:20 Toe - Right Hallux Gram Stain - Final 02/03/20 16:20 Toe - Right Hallux Wound Culture - Final Klebsiella Pneumoniae - Esbl Proteus Mirabilis Enterococcus Faecalis Active Medications Acetaminophen (Tylenol -) 650 mg PO Q4H PRN PRN Reason: FEVER Last Admin: 03/15/20 11:20 Dose: 650 mg Documented by: Amino Acids (Prosource No Carb Liquid Pkt) 30 ml PO BID@0800,1730 [facility] Last Admin: 03/15/20 11:17 Dose: 30 ml Documented by: Artificial Tears (Artificial Tears) 1 drop OU Q6H PRN PRN Reason: DRY EYES Carvedilol (Coreg -) 12.5 mg PO BID [facility] Last Admin: 03/15/20 11:18 Dose: 12.5 mg Documented by: Digoxin (Lanoxin -) 0.125 mg PO DAILY [facility] Last Admin: 03/15/20 11:17 Dose: 0.125 mg Documented by: Docusate Sodium (Colace -) 100 mg PO BID [facility] Last Admin: 03/15/20 11:18 Dose: 100 mg Documented by: Famotidine (Pepcid -) 20 mg PO BID [facility] Last Admin: 03/15/20 11:18 Dose: 20 mg Documented by: Gabapentin (Neurontin -) 300 mg PO TID [facility] Last Admin: 03/15/20 14:32 Dose: 300 mg Documented by: Ertapenem 1 gm/ Sodium (Chloride) 50 mls @ 100 mls/hr IVPB DAILY [facility] Last Admin: 03/15/20 11:35 Dose: 100 mls/hr Documented by: Insulin Aspart (Novolog Vial Sliding Scale -) 1 vial SQ ACHS [facility]; Protocol Last Admin: 03/15/20 11:34 Dose: 12 units Documented by: Insulin Detemir (Levemir Vial) 30 units SQ HS [facility] Last Admin: 03/14/20 21:30 Dose: 30 units Documented by: Magnesium Oxide (Mag-Ox -) 400 mg PO BID [facility] Last Admin: 03/15/20 11:19 Dose: 400 mg Documented by: Multivitamins/Minerals/Vitamin C (Tab-A-Vit -) 1 tab PO DAILY [facility] Last Admin: 03/15/20 12:35 Dose: 1 tab Documented by: Ondansetron HCl (Zofran Injection) 4 mg IVPUSH Q6H PRN PRN Reason: NAUSEA AND/OR VOMITING Polyethylene Glycol (Miralax (For Daily Use) -) 17 gm PO DAILY [facility] Last Admin: 03/15/20 11:19 Dose: 17 gm Documented by: Promethazine HCl (Phenergan Injection -) 12.5 mg IVPUSH Q6H PRN PRN Reason: NAUSEA-FOR RESCUE AFTER 15 MIN Quetiapine Fumarate (Seroquel -) 50 mg PO HS [facility] Last Admin: 03/14/20 21:29 Dose: 50 mg Documented by: Senna (Senna -) 1 tab PO BID [facility] Last Admin: 03/15/20 11:18 Dose: 1 tab Documented by: Tamsulosin HCl (Flomax -) 0.4 mg PO DAILY@0830 [facility] Last Admin: 03/15/20 11:18 Dose: 0.4 mg Documented by: Valsartan (Diovan -) 320 mg PO DAILY [facility] Last Admin: 03/15/20 11:19 Dose: 320 mg Documented by: Zinc Sulfate (Orazinc -) 220 mg PO DAILY [facility] Last Admin: 03/15/20 11:18 Dose: 220 mg Documented by: A/P: R foot dry gangrene s/o R BKA POD 7 POD 2 Prosthetic Revision and repair of R femoral artery with vein patch, endarterectomy Elevated CK Levels Schizophrenia History of CAD CKD HFpEF T2DM with diabetic foot wound History of HTN History of HLD --Pt with wound vac to continue M/W/F as per surgical teams --Continue to monitor H/H; currently stable post surgical --Holding antiplatelet and anticoagulation medications due to breakdown of graft; to resume per surgery recs --Monitor wound and continue Ertapenem --Daptomycin discontinued due to elevated CK levels --ID on board --CK levels decreasing; continue free water encouragement --Holding Dapto as above and holding statin; monitor CK levels --Monitor Cr and urine output --Pt resisting liang change; will TOV and monitor with urinal --If patient incontinent must insert liang to keep surgical wound clean --Continue home medications; will need to f/u outpatient physician regarding digoxin as unclear reason (obtaining records) diet: diabetic diet dispo: continue M/S monitoring. DNR/DNI DO Sidney Allred
[2020-03-15] MEDS ORDERED: INSULIN (LEVEMIR) 100 UNITS/ML UNITS SQ ONE (11:07)
[2020-03-15] MEDS ORDERED: INSULIN (NOVOLOG) ASPART 100 UNITS/ML 10ML VIAL ONE (11:08)
[2020-03-15] MEDS: AMINO ACIDS/PROTEIN HYDROLYS 30 ML LIQUID.PKT PO SCH (11:17)
[2020-03-15] MEDS: DIGOXIN 0.125 MG TABLET (FP) PO SCH (11:17)
[2020-03-15] MEDS: FAMOTIDINE 20 MG TABLET PO SCH ×2 (11:18→22:01)
[2020-03-15] MEDS: DOCUSATE SODIUM 100 MG CAPSULE (FP) PO SCH ×2 (11:18→22:00)
[2020-03-15] MEDS: ZINC SULFATE 220 MG CAPSULE (FP) PO SCH (11:18)
[2020-03-15] MEDS: TAMSULOSIN HCL 0.4 MG CAP PO SCH (11:18)
[2020-03-15] MEDS: SENNOSIDES 8.6MG TABLET (FP) PO SCH ×2 (11:18→22:01)
[2020-03-15] MEDS: CARVEDILOL 12.5 MG TABLET (FP) PO SCH ×2 (11:18→22:01)
[2020-03-15] MEDS: POLYETHYLENE GLYCOL 3350 119 GM BTL PO SCH (11:19)
[2020-03-15] MEDS: MAGNESIUM OXIDE 400 MG TABLET (FP) PO SCH ×2 (11:19→22:02)
[2020-03-15] MEDS: VALSARTAN 160 MG TABLET PO SCH (11:19)
[2020-03-15] MEDS: ACETAMINOPHEN 325 MG TABLET (FP) PO PRN (11:20)
[2020-03-15] MEDS: ERTAPENEM SODIUM 1 GM in SODIUM CHLORIDE 50 ML IVPB SCH (11:35)
--- NOTE | 2020-03-15 11:48 | PN ---
Progress Note (short form) - Note Progress Note: cc: leg pain s: no cp sob palps dizzy Current Medications Generic Name Dose Route Start Last Admin Trade Name Freq PRN Reason Stop Dose Admin Acetaminophen 650 mg 03/14/20 11:45 03/15/20 11:20 Tylenol - PO 650 mg Q4H PRN Administration FEVER Amino Acids 30 ml 03/14/20 17:30 03/15/20 11:17 Prosource No Carb Liquid Pkt PO 30 ml BID@0800,1730 [facility] Administration Artificial Tears 1 drop 03/14/20 11:45 Artificial Tears OU Q6H PRN DRY EYES Carvedilol 12.5 mg 03/14/20 22:00 03/15/20 11:18 Coreg - PO 12.5 mg BID [facility] Administration Digoxin 0.125 mg 03/15/20 10:00 03/15/20 11:17 Lanoxin - PO 0.125 mg DAILY [facility] Administration Docusate Sodium 100 mg 03/14/20 22:00 03/15/20 11:18 Colace - PO 100 mg BID [facility] Administration Famotidine 20 mg 03/14/20 22:00 03/15/20 11:18 Pepcid - PO 20 mg BID [facility] Administration Gabapentin 300 mg 03/14/20 14:00 03/15/20 06:32 Neurontin - PO 300 mg TID [facility] Administration Ertapenem 1 gm/ Sodium 50 mls @ 100 mls/hr 03/15/20 10:00 03/15/20 11:35 Chloride IVPB 100 mls/hr DAILY [facility] Administration Insulin Aspart 1 vial 03/14/20 16:30 03/15/20 11:34 Novolog Vial Sliding Scale - SQ 12 units ACHS [facility] Administration Protocol Insulin Detemir 30 units 03/14/20 22:00 03/14/20 21:30 Levemir Vial SQ 30 units HS [facility] Administration Magnesium Oxide 400 mg 03/14/20 22:00 03/15/20 11:19 Mag-Ox - PO 400 mg BID [facility] Administration Multivitamins/Minerals/Vitamin C 1 tab 03/15/20 10:00 Tab-A-Vit - PO DAILY [facility] Ondansetron HCl 4 mg 03/14/20 11:45 Zofran Injection IVPUSH Q6H PRN NAUSEA AND/OR VOMITING Polyethylene Glycol 17 gm 03/15/20 10:00 03/15/20 11:19 Miralax (For Daily Use) - PO 17 gm DAILY [facility] Administration Promethazine HCl 12.5 mg 03/14/20 11:45 Phenergan Injection - IVPUSH Q6H PRN NAUSEA-FOR RESCUE AFTER 15 MIN Quetiapine Fumarate 50 mg 03/14/20 22:00 03/14/20 21:29 Seroquel - PO 50 mg HS [facility] Administration Senna 1 tab 03/15/20 10:45 03/15/20 11:18 Senna - PO 1 tab BID [facility] Administration Tamsulosin HCl 0.4 mg 03/15/20 08:30 03/15/20 11:18 Flomax - PO 0.4 mg DAILY@0830 [facility] Administration Valsartan 320 mg 03/15/20 10:00 03/15/20 11:19 Diovan - PO 320 mg DAILY [facility] Administration Zinc Sulfate 220 mg 03/15/20 10:00 03/15/20 11:18 Orazinc - PO 220 mg DAILY [facility] Administration Vital Signs Period Temp Pulse Resp BP Sys/Leahy Pulse Ox Last 24 Hr 97.8 F-99.6 F 80-96 18-18 109-149/64-80 98-100 Constitutional: Yes: Well Nourished, No Distress Eyes: No: Sclera Icterus HENT: No: Nasal Congestion Respiratory: Yes: CTA Bilaterally. No: Accessory Muscle Use, Rales, Wheezes Gastrointestinal: Yes: Normal Bowel Sounds. No: Distention, Hepatomegaly, Palpable Mass, Tenderness Cardiovascular: Yes: Regular Rate and Rhythm JVD: No Heart Sounds: Yes: S1, S2. No: Gallop Murmur: No: Systolic Murmur, Diastolic Murmur Edema: No Integumentary: No: Jaundice Neurological: Yes: Alert. No: Seizure Psychiatric: No: Agitated Assessment/Plan echo 01/2020: normal LVEF, nl RV, nl valve function. CXR: ATX vs infiltrate R base, no effusions/congestion mibi 01/2020 mod sized area of inferolateral scar, no ischemia, EF 45% postop bleeding, PAD - s/p R fem-pop, BKA - 03/11 transferred to ICU and taken urgently to OR for bleeding - stable H/H after OR, received IVF, PRBCs with stable BP - manage per vascular CAD: - no angina sx's here - preop mibi shows inferolateral scar, no ischemia. mildly reduced EF. - continue statin, aspirin - on digoxin for unclear indication, levels ok here, continue--outpt f/u with prior treating physician DM: -per hospitalist HTN: - cont current meds HPL: -cont statin
--- NOTE | 2020-03-15 12:29 | EKG ---
Test Reason : Blood Pressure : / mmHG Vent. Rate : 093 BPM Atrial Rate : 093 BPM P-R Int : 162 ms QRS Dur : 084 ms QT Int : 330 ms P-R-T Axes : 040 009 036 degrees QTc Int : 410 ms NORMAL SINUS RHYTHM INFERIOR INFARCT (CITED ON OR BEFORE 03-FEB-2020) ABNORMAL ECG WHEN COMPARED WITH ECG OF 03-FEB-2020 14:32, BORDERLINE CRITERIA FOR ANTERIOR INFARCT ARE NO LONGER PRESENT Confirmed by Lionel Mac MD ([id number]) on 03/15/2020 12:29:40 PM Referred By: Alphonso WEI Confirmed By:Lionel Mac MD
[2020-03-15] MEDS: MULTIVITAMINS (DAILY MVI) TABLET (FP) PO SCH (12:35)
--- NOTE | 2020-03-15 14:09 | PN ---
Progress Note (short form) - Note Progress Note: remainder of graft removed and femoral artery vein patch placed 03/12 s/p BKA s/p washout with infected graft removal and vac placement no complaints Vital Signs Period Temp Pulse Resp BP Sys/Leahy Pulse Ox Last 24 Hr 97.8 F-99.3 F 80-95 18-18 109-142/49-80 95-98 cor-rrr lulngs clear abd soft,nt ext vac in place bka stump clean CBC, BMP 03/15/20 07:05 03/15/20 07:05 Microbiology 03/03/20 09:24 Groin - Right Gram Stain - Final 03/03/20 09:24 Groin - Right Wound Culture - Final Vr Ec Faecium Mr S Aureus Yeast Like Organism 02/26/20 14:37 Groin - Right Gram Stain - Final 02/26/20 14:37 Groin - Right Wound Culture - Final Klebsiella Pneumoniae - Esbl Vr Ec Faecium Enterococcus Faecalis 02/24/20 18:00 Blood - Peripheral Venous Blood Culture - Final NO GROWTH AFTER 5 DAYS INCUBATION 02/24/20 18:15 Blood - Peripheral Venous Blood Culture - Final NO GROWTH AFTER 5 DAYS INCUBATION 02/24/20 15:30 Groin - Right Gram Stain - Final 02/24/20 15:30 Groin - Right Wound Culture - Final Klebsiella Pneumoniae - Esbl Vr Ec Faecium 02/21/20 15:23 Blood - Peripheral Venous Blood Culture - Final NO GROWTH AFTER 5 DAYS INCUBATION 02/21/20 15:35 Blood - Peripheral Venous Blood Culture - Final NO GROWTH AFTER 5 DAYS INCUBATION 02/24/20 00:30 Urine - Urine - Catheterized Urine Culture - Final NO GROWTH OBTAINED 02/05/20 07:50 Blood - Peripheral Venous Blood Culture - Final NO GROWTH AFTER 5 DAYS INCUBATION 02/05/20 08:08 Blood - Peripheral Venous Blood Culture - Final NO GROWTH AFTER 5 DAYS INCUBATION 02/03/20 13:05 Blood - Peripheral Venous Blood Culture - Final NO GROWTH AFTER 5 DAYS INCUBATION 02/03/20 13:05 Blood - Peripheral Venous Blood Culture - Final NO GROWTH AFTER 5 DAYS INCUBATION 02/03/20 16:20 Toe - Right Hallux Gram Stain - Final 02/03/20 16:20 Toe - Right Hallux Wound Culture - Final Klebsiella Pneumoniae - Esbl Proteus Mirabilis Enterococcus Faecalis a/p s/p bleeding requiring surgery overnight with placement of vein patch and removal of graft 03/12/ s/p BKA s/p removal infected graft contact isolation for MDRO ertapenem-since 02/27/20 -to continue hold daptomycin- cpk over 1500- trend, d/corrine lipitor too PVD dementia schizophrenia will d/w surgery Problem List - Problems (1) Fever Code(s): R50.9 - FEVER, UNSPECIFIED (2) Diabetic foot infection Code(s): E11.628 - TYPE 2 DIABETES MELLITUS WITH OTHER SKIN COMPLICATIONS; L08.9 - LOCAL INFECTION OF THE SKIN AND SUBCUTANEOUS TISSUE, UNSP (3) PVD (peripheral vascular disease) Code(s): I73.9 - PERIPHERAL VASCULAR DISEASE, UNSPECIFIED (4) CKD (chronic kidney disease) Code(s): N18.9 - CHRONIC KIDNEY DISEASE, UNSPECIFIED (5) Anemia Code(s): D64.9 - ANEMIA, UNSPECIFIED
--- NOTE | 2020-03-15 17:48 | PATH ---
Surgical Pathology Report Patient Name: OZZIE UMANZOR Med. Rec. #: [id number] /Age/Gender: 1955 (Age: 64) / M Account: [id number] Location: [address] [place] [address] MED/MARIANO Taken: 03/12/2020 Received: 03/14/2020 Reported: 03/15/2020 Physicians: Faye Sauceda F.N.P. Specimen(s) Received GRAFT AND PLAQUE REMOVED FROM RIGHT GROIN Clinical History Hemorrhage of right groin wound Final Diagnosis GRAFT AND PLAQUE REMOVED FROM RIGHT GROIN: CONSISTENT WITH CALCIFIED PLAQUE ADMIXED WITH BLOOD CLOT. Electronically Signed Joellen Segura M.D. Gross Description Received in formalin labeled "graft and plaque removed from right groin," are 2 albarran-yellow, tubular portions of graft material measuring 0.9 and 2.3 cm in length. Also received within the same container is a 1.8 x 1.7 x 0.4 cm aggregate of albarran-yellow, calcified plaque. Solution Engineer sections are submitted in one cassette, following decalcification. DL/03/14/2020 saudi/03/14/2020
[2020-03-15] MEDS ORDERED: QUEtiapine FUMARATE 25 MG TABLET ONE (21:52)
[2020-03-15] MEDS: QUEtiapine FUMARATE 50 MG TABLET PO SCH (22:01)
[2020-03-15] MEDS: INSULIN (LEVEMIR) 100 UNITS/ML UNITS SQ SCH (22:05)
[2020-03-16] MEDS: INSULIN SLIDING SCALE (NOVOLOG) 1 VIAL SQ SCH ×4 (06:26→22:07)
[2020-03-16] MEDS: GABAPENTIN 300 MG CAPSULE PO SCH ×3 (06:28→22:08)
[2020-03-16 08:36] LABS: HEMATOCRIT 22.5 % (35.4-49); HEMOGLOBIN 7.8 GM/dL (11.7-16.9); MCHC 34.6 g/dl (32.0-35.9); MEAN CELL VOLUME 86.7 fl (80-96); MEAN PLT VOLUME 8.2 fl (7.5-11.1); PLATELET COUNT 213 K/MM3 (134-434); RBC 2.59 M/mm3 (4.00-5.60); RDW 14.9 % (11.9-15.9); WHITE BLOOD COUNT 6.4 K/mm3 (4.0-10.0)
[2020-03-16 08:45] LABS: BLOOD UREA NITROGEN 20.4 mg/dL (7-18); CALCIUM 8.2 mg/dL (8.5-10.1); CREATININE 1.1 mg/dL (0.55-1.3); POTASSIUM 4.1 mmol/L (3.5-5.1)
[2020-03-16] MEDS ORDERED: PT OWN MED DRAWER 7, Y5N ONE (09:11)
--- NOTE | 2020-03-16 09:11 | PN ---
Progress Note (short form) - Note Progress Note: UROLOGY NOTE 64 Y/O Male patient with PMHx DM, Schizophrenia, HTN, HLD, GERD, Dementia, EtOH Use Disorder, diabetic foot and Neurogenic bladder. He failed multiple TOV and we are called for difficult Liang. O/E soft lax abd with distended bladder Genitalia WNL 16 F liang catheter inserted and drain clear urine. Plan: Renal and pelvic U/S will do Cystoscopy and UDS when his medical condition allow
[2020-03-16] MEDS: SENNOSIDES 8.6MG TABLET (FP) PO SCH ×2 (09:13→22:10)
[2020-03-16] MEDS: TAMSULOSIN HCL 0.4 MG CAP PO SCH (09:13)
[2020-03-16] MEDS: MULTIVITAMINS (DAILY MVI) TABLET (FP) PO SCH (09:13)
[2020-03-16] MEDS: FAMOTIDINE 20 MG TABLET PO SCH ×2 (09:13→22:09)
[2020-03-16] MEDS: AMINO ACIDS/PROTEIN HYDROLYS 30 ML LIQUID.PKT PO SCH (09:13)
[2020-03-16] MEDS: POLYETHYLENE GLYCOL 3350 119 GM BTL PO SCH (09:14)
[2020-03-16] MEDS: VALSARTAN 160 MG TABLET PO SCH (09:14)
[2020-03-16] MEDS: ZINC SULFATE 220 MG CAPSULE (FP) PO SCH (09:14)
[2020-03-16] MEDS: DIGOXIN 0.125 MG TABLET (FP) PO SCH (09:14)
[2020-03-16] MEDS: MAGNESIUM OXIDE 400 MG TABLET (FP) PO SCH ×2 (09:14→22:09)
[2020-03-16] MEDS: DOCUSATE SODIUM 100 MG CAPSULE (FP) PO SCH ×2 (09:14→22:10)
[2020-03-16] MEDS: CARVEDILOL 12.5 MG TABLET (FP) PO SCH ×2 (09:14→22:10)
--- NOTE | 2020-03-16 10:56 | PROC ---
Procedure Note Procedure: Surgical A decision was made to utilize Negative Pressure Therapy (VAC) to assist in: expedite wound closure through promotion of granulation tissue formation. - Wound description Wound location: Other (Right groin) Length (cm): 4.5 Width (cm): 3.5 Depth (cm): 2 Wound area (sq cm): 13.50 Wound Description: Muscle exposed: Yes, Tendon exposed: No, Bone exposed: No, Undermining: No - Device VAC Selection: NPT - Procedure Area cleansed. Prepped/draped. Black foam tailored to fit just inside of wound borders to encourage wound contracture. An occlusive dressing applied. Suction disc placed in location so as not to be uncomfortable for the patient or cause any pressure point. Good seal as verified by complete foam collapse and no leak on unit monitor. Pressure set to 125 mmHg, continuous. No purulent drainage. Good granulation tissue present. Dressing changes: -- - CPT Code CPT code: [id number] <50 sq cm
[2020-03-16] MEDS: ERTAPENEM SODIUM 1 GM in SODIUM CHLORIDE 50 ML IVPB SCH (11:49)
--- NOTE | 2020-03-16 12:51 | PN ---
Progress Note (short form) - Note Progress Note: cc: leg pain s: no cp sob palps dizzy Current Medications Generic Name Dose Route Start Last Admin Trade Name Freq PRN Reason Stop Dose Admin Acetaminophen 650 mg 03/14/20 11:45 03/15/20 11:20 Tylenol - PO 650 mg Q4H PRN Administration FEVER Amino Acids 30 ml 03/16/20 10:00 03/16/20 09:13 Prosource No Carb Liquid Pkt PO 30 ml DAILY [facility] Administration Artificial Tears 1 drop 03/14/20 11:45 Artificial Tears OU Q6H PRN DRY EYES Carvedilol 12.5 mg 03/14/20 22:00 03/16/20 09:14 Coreg - PO 12.5 mg BID [facility] Administration Digoxin 0.125 mg 03/15/20 10:00 03/16/20 09:14 Lanoxin - PO 0.125 mg DAILY [facility] Administration Docusate Sodium 100 mg 03/14/20 22:00 03/16/20 09:14 Colace - PO 100 mg BID [facility] Administration Famotidine 20 mg 03/14/20 22:00 03/16/20 09:13 Pepcid - PO 20 mg BID [facility] Administration Gabapentin 300 mg 03/14/20 14:00 03/16/20 06:28 Neurontin - PO 300 mg TID [facility] Administration Ertapenem 1 gm/ Sodium 50 mls @ 100 mls/hr 03/15/20 10:00 03/16/20 11:49 Chloride IVPB 100 mls/hr DAILY [facility] Administration Insulin Aspart 1 vial 03/14/20 16:30 03/16/20 12:12 Novolog Vial Sliding Scale - SQ 10 units ACHS [facility] Administration Protocol Insulin Detemir 30 units 03/14/20 22:00 03/15/20 22:05 Levemir Vial SQ 30 units HS [facility] Administration Magnesium Oxide 400 mg 03/14/20 22:00 03/16/20 09:14 Mag-Ox - PO 400 mg BID [facility] Administration Multivitamins/Minerals/Vitamin C 1 tab 03/15/20 10:00 03/16/20 09:13 Tab-A-Vit - PO 1 tab DAILY [facility] Administration Ondansetron HCl 4 mg 03/14/20 11:45 Zofran Injection IVPUSH Q6H PRN NAUSEA AND/OR VOMITING Polyethylene Glycol 17 gm 03/15/20 10:00 03/16/20 09:14 Miralax (For Daily Use) - PO 17 gm DAILY [facility] Administration Promethazine HCl 12.5 mg 03/14/20 11:45 Phenergan Injection - IVPUSH Q6H PRN NAUSEA-FOR RESCUE AFTER 15 MIN Quetiapine Fumarate 50 mg 03/14/20 22:00 03/15/20 22:01 Seroquel - PO 50 mg HS [facility] Administration Senna 1 tab 03/15/20 10:45 03/16/20 09:13 Senna - PO 1 tab BID [facility] Administration Tamsulosin HCl 0.4 mg 03/15/20 08:30 03/16/20 09:13 Flomax - PO 0.4 mg DAILY@0830 [facility] Administration Valsartan 320 mg 03/15/20 10:00 03/16/20 09:14 Diovan - PO 320 mg DAILY [facility] Administration Zinc Sulfate 220 mg 03/15/20 10:00 03/16/20 09:14 Orazinc - PO 220 mg DAILY [facility] Administration Vital Signs Period Temp Pulse Resp BP Sys/Leahy Pulse Ox Last 24 Hr 98.1 F-99.7 F 88-96 18-18 115-134/49-71 95-99 Constitutional: Yes: Well Nourished, No Distress Eyes: No: Sclera Icterus HENT: No: Nasal Congestion Respiratory: Yes: CTA Bilaterally. No: Accessory Muscle Use, Rales, Wheezes Gastrointestinal: Yes: Normal Bowel Sounds. No: Distention, Hepatomegaly, Palpable Mass, Tenderness Cardiovascular: Yes: Regular Rate and Rhythm JVD: No Heart Sounds: Yes: S1, S2. No: Gallop Murmur: No: Systolic Murmur, Diastolic Murmur Edema: No Integumentary: No: Jaundice Neurological: Yes: Alert. No: Seizure Psychiatric: No: Agitated Assessment/Plan echo 01/2020: normal LVEF, nl RV, nl valve function. CXR: ATX vs infiltrate R base, no effusions/congestion mibi 01/2020 mod sized area of inferolateral scar, no ischemia, EF 45% postop bleeding, PAD - s/p R fem-pop, BKA - 03/11 transferred to ICU and taken urgently to OR for bleeding - stable H/H after OR, received IVF, PRBCs with stable BP - manage per vascular CAD: - no angina sx's here - preop mibi shows inferolateral scar, no ischemia. mildly reduced EF. - continue statin, aspirin - on digoxin for unclear indication, levels ok here, continue--outpt f/u with prior treating physician DM: -per hospitalist HTN: - cont current meds HPL: -cont statin
--- NOTE | 2020-03-16 13:41 | PN ---
Progress Note (short form) - Note Progress Note: remainder of graft removed and femoral artery vein patch placed 03/12 s/p BKA s/p washout with infected graft removal and vac placement no complaints vac changed today, wound is clean per surgery Vital Signs Period Temp Pulse Resp BP Sys/Leahy Pulse Ox Last 24 Hr 98 F-99.7 F 88-96 16-18 115-134/49-74 95-100 cor-rrr lungs clear abd soft,nt +groin vac CBC, BMP 03/16/20 06:50 03/16/20 06:50 Microbiology 03/03/20 09:24 Groin - Right Gram Stain - Final 03/03/20 09:24 Groin - Right Wound Culture - Final Vr Ec Faecium Mr S Aureus Yeast Like Organism 02/26/20 14:37 Groin - Right Gram Stain - Final 02/26/20 14:37 Groin - Right Wound Culture - Final Klebsiella Pneumoniae - Esbl Vr Ec Faecium Enterococcus Faecalis 02/24/20 18:00 Blood - Peripheral Venous Blood Culture - Final NO GROWTH AFTER 5 DAYS INCUBATION 02/24/20 18:15 Blood - Peripheral Venous Blood Culture - Final NO GROWTH AFTER 5 DAYS INCUBATION 02/24/20 15:30 Groin - Right Gram Stain - Final 02/24/20 15:30 Groin - Right Wound Culture - Final Klebsiella Pneumoniae - Esbl Vr Ec Faecium 02/21/20 15:23 Blood - Peripheral Venous Blood Culture - Final NO GROWTH AFTER 5 DAYS INCUBATION 02/21/20 15:35 Blood - Peripheral Venous Blood Culture - Final NO GROWTH AFTER 5 DAYS INCUBATION 02/24/20 00:30 Urine - Urine - Catheterized Urine Culture - Final NO GROWTH OBTAINED 02/05/20 07:50 Blood - Peripheral Venous Blood Culture - Final NO GROWTH AFTER 5 DAYS INCUBATION 02/05/20 08:08 Blood - Peripheral Venous Blood Culture - Final NO GROWTH AFTER 5 DAYS INCUBATION 02/03/20 13:05 Blood - Peripheral Venous Blood Culture - Final NO GROWTH AFTER 5 DAYS INCUBATION 02/03/20 13:05 Blood - Peripheral Venous Blood Culture - Final NO GROWTH AFTER 5 DAYS INCUBATION 02/03/20 16:20 Toe - Right Hallux Gram Stain - Final 02/03/20 16:20 Toe - Right Hallux Wound Culture - Final Klebsiella Pneumoniae - Esbl Proteus Mirabilis Enterococcus Faecalis a/p s/p bleeding requiring surgery overnight with placement of vein patch and removal of graft 03/12/20 s/p BKA s/p removal infected graft contact isolation for MDRO ertapenem-since 02/27/20 -to continue hold daptomycin- cpk trending down PVD dementia schizophrenia will get sonogram of the leg- if there is no fluid around remaining graft will d/c antibiotics and observe Problem List - Problems (1) Fever Code(s): R50.9 - FEVER, UNSPECIFIED (2) Diabetic foot infection Code(s): E11.628 - TYPE 2 DIABETES MELLITUS WITH OTHER SKIN COMPLICATIONS; L08.9 - LOCAL INFECTION OF THE SKIN AND SUBCUTANEOUS TISSUE, UNSP (3) PVD (peripheral vascular disease) Code(s): I73.9 - PERIPHERAL VASCULAR DISEASE, UNSPECIFIED (4) CKD (chronic kidney disease) Code(s): N18.9 - CHRONIC KIDNEY DISEASE, UNSPECIFIED (5) Anemia Code(s): D64.9 - ANEMIA, UNSPECIFIED
--- NOTE | 2020-03-16 16:15 | PN ---
Progress Note (short form) - Note Progress Note: S: No events overnight. No fevers. Urology placed liang successfully. No complaints today. Wound vac replaced today by surgical team. O: Vital Signs Temperature 98.8 F 03/16/20 14:00 Pulse Rate 86 03/16/20 14:00 Respiratory Rate 18 03/16/20 14:00 Blood Pressure 143/70 03/16/20 14:00 O2 Sat by Pulse Oximetry (%) 100 03/16/20 14:00 PE: Gen: NAD, awake, alert, sitting up in bed eating breakfast HEENT: Nc/AT, TERRI, MMM Neck: No JVD LUNG: CTA b/l despite poor inspiratory effort without wheezes/rales CARD: RRR no murmurs ABD: Did not want me to examine EXT: R upper thigh post-surgical wound healing wound vac in place, no surrounding erythema, R BKA stump bandaged Skin: See above CBC, BMP 03/16/20 06:50 03/16/20 06:50 Active Medications Acetaminophen (Tylenol -) 650 mg PO Q4H PRN PRN Reason: FEVER Last Admin: 03/15/20 11:20 Dose: 650 mg Documented by: Amino Acids (Prosource No Carb Liquid Pkt) 30 ml PO DAILY [facility] Last Admin: 03/16/20 09:13 Dose: 30 ml Documented by: Artificial Tears (Artificial Tears) 1 drop OU Q6H PRN PRN Reason: DRY EYES Carvedilol (Coreg -) 12.5 mg PO BID [facility] Last Admin: 03/16/20 09:14 Dose: 12.5 mg Documented by: Digoxin (Lanoxin -) 0.125 mg PO DAILY [facility] Last Admin: 03/16/20 09:14 Dose: 0.125 mg Documented by: Docusate Sodium (Colace -) 100 mg PO BID [facility] Last Admin: 03/16/20 09:14 Dose: 100 mg Documented by: Famotidine (Pepcid -) 20 mg PO BID [facility] Last Admin: 03/16/20 09:13 Dose: 20 mg Documented by: Gabapentin (Neurontin -) 300 mg PO TID [facility] Last Admin: 03/16/20 14:53 Dose: 300 mg Documented by: Ertapenem 1 gm/ Sodium (Chloride) 50 mls @ 100 mls/hr IVPB DAILY [facility] Last Admin: 03/16/20 11:49 Dose: 100 mls/hr Documented by: Insulin Aspart (Novolog Vial Sliding Scale -) 1 vial SQ [facility]; Protocol Last Admin: 03/16/20 12:12 Dose: 10 units Documented by: Insulin Detemir (Levemir Vial) 30 units SQ HS [facility] Last Admin: 03/15/20 22:05 Dose: 30 units Documented by: Magnesium Oxide (Mag-Ox -) 400 mg PO BID [facility] Last Admin: 03/16/20 09:14 Dose: 400 mg Documented by: Multivitamins/Minerals/Vitamin C (Tab-A-Vit -) 1 tab PO DAILY [facility] Last Admin: 03/16/20 09:13 Dose: 1 tab Documented by: Ondansetron HCl (Zofran Injection) 4 mg IVPUSH Q6H PRN PRN Reason: NAUSEA AND/OR VOMITING Polyethylene Glycol (Miralax (For Daily Use) -) 17 gm PO DAILY [facility] Last Admin: 03/16/20 09:14 Dose: 17 gm Documented by: Promethazine HCl (Phenergan Injection -) 12.5 mg IVPUSH Q6H PRN PRN Reason: NAUSEA-FOR RESCUE AFTER 15 MIN Quetiapine Fumarate (Seroquel -) 50 mg PO [facility] Last Admin: 03/15/20 22:01 Dose: 50 mg Documented by: Senna (Senna -) 1 tab PO BID [facility] Last Admin: 03/16/20 09:13 Dose: 1 tab Documented by: Tamsulosin HCl (Flomax -) 0.4 mg PO DAILY@0830 [facility] Last Admin: 03/16/20 09:13 Dose: 0.4 mg Documented by: Valsartan (Diovan -) 320 mg PO DAILY [facility] Last Admin: 03/16/20 09:14 Dose: 320 mg Documented by: Zinc Sulfate (Orazinc -) 220 mg PO DAILY [facility] Last Admin: 03/16/20 09:14 Dose: 220 mg Documented by: Microbiology 03/03/20 09:24 Groin - Right Gram Stain - Final 03/03/20 09:24 Groin - Right Wound Culture - Final Vr Ec Faecium Mr S Aureus Yeast Like Organism 02/26/20 14:37 Groin - Right Gram Stain - Final 02/26/20 14:37 Groin - Right Wound Culture - Final Klebsiella Pneumoniae - Esbl Vr Ec Faecium Enterococcus Faecalis 02/24/20 18:00 Blood - Peripheral Venous Blood Culture - Final NO GROWTH AFTER 5 DAYS INCUBATION 02/24/20 18:15 Blood - Peripheral Venous Blood Culture - Final NO GROWTH AFTER 5 DAYS INCUBATION 02/24/20 15:30 Groin - Right Gram Stain - Final 02/24/20 15:30 Groin - Right Wound Culture - Final Klebsiella Pneumoniae - Esbl Vr Ec Faecium 02/21/20 15:23 Blood - Peripheral Venous Blood Culture - Final NO GROWTH AFTER 5 DAYS INCUBATION 02/21/20 15:35 Blood - Peripheral Venous Blood Culture - Final NO GROWTH AFTER 5 DAYS INCUBATION 02/24/20 00:30 Urine - Urine - Catheterized Urine Culture - Final NO GROWTH OBTAINED 02/05/20 07:50 Blood - Peripheral Venous Blood Culture - Final NO GROWTH AFTER 5 DAYS INCUBATION 02/05/20 08:08 Blood - Peripheral Venous Blood Culture - Final NO GROWTH AFTER 5 DAYS INCUBATION 02/03/20 13:05 Blood - Peripheral Venous Blood Culture - Final NO GROWTH AFTER 5 DAYS INCUBATION 02/03/20 13:05 Blood - Peripheral Venous Blood Culture - Final NO GROWTH AFTER 5 DAYS INCUBATION 02/03/20 16:20 Toe - Right Hallux Gram Stain - Final 02/03/20 16:20 Toe - Right Hallux Wound Culture - Final Klebsiella Pneumoniae - Esbl Proteus Mirabilis Enterococcus Faecalis A/P: R foot dry gangrene s/o R BKA POD 7 POD 3 Prosthetic Revision and repair of R femoral artery with vein patch, endarterectomy Elevated CK Levels Schizophrenia History of CAD CKD HFpEF T2DM with diabetic foot wound History of HTN History of HLD --Pt with wound vac to continue M/W/F as per surgical teams --Discussed with surgical team and wound is healing nicely without any signs of breakdown --Black foam being used --Discussed about long-term goals today --Continue liang for protection of wound --R thigh U/S for monitoring any collection --ID on board --Ertapenem per ID (long-term plan pending U/S) --Daptomycin discontinued 2/2 CK elevation --Statin also held due to above --CK levels decreasing; continue free water encouragement --Continue to monitor H/H; currently stable post surgical --Holding antiplatelet and anticoagulation medications due to breakdown of graft; to resume per surgery recs --Continue home medications; will need to f/u outpatient physician regarding digoxin as unclear reason (obtaining records) diet: diabetic diet dispo: continue M/S monitoring. DNR/DNI DO Sidney Allred
[2020-03-16] MEDS ORDERED: QUEtiapine FUMARATE 25 MG TABLET ONE (22:01)
[2020-03-16] MEDS: QUEtiapine FUMARATE 50 MG TABLET PO SCH (22:08)
[2020-03-16] MEDS: INSULIN (LEVEMIR) 100 UNITS/ML UNITS SQ SCH (22:11)
[2020-03-17] MEDS: INSULIN SLIDING SCALE (NOVOLOG) 1 VIAL SQ SCH ×4 (07:06→22:40)
[2020-03-17] MEDS: GABAPENTIN 300 MG CAPSULE PO SCH ×3 (07:07→22:20)
[2020-03-17 08:18] LABS: HEMATOCRIT 23.3 % (35.4-49); MCH 29.7 pg (25.7-33.7); MCHC 34.2 g/dl (32.0-35.9); MEAN CELL VOLUME 86.9 fl (80-96); MEAN PLT VOLUME 8.1 fl (7.5-11.1); PLATELET COUNT 226 K/MM3 (134-434); RBC 2.69 M/mm3 (4.00-5.60); WHITE BLOOD COUNT 6.7 K/mm3 (4.0-10.0)
[2020-03-17 09:07] LABS: ALBUMIN 1.6 g/dl (3.4-5.0); BILIRUBIN,TOTAL 0.3 mg/dL (0.2-1); BLOOD UREA NITROGEN 20.7 mg/dL (7-18); CALCIUM 8.2 mg/dL (8.5-10.1); TOT PROT 6.1 g/dl (6.4-8.2)
[2020-03-17] MEDS: POLYETHYLENE GLYCOL 3350 119 GM BTL PO SCH (11:38)
[2020-03-17] MEDS: DIGOXIN 0.125 MG TABLET (FP) PO SCH (11:39)
[2020-03-17] MEDS: MAGNESIUM OXIDE 400 MG TABLET (FP) PO SCH ×2 (11:40→22:39)
[2020-03-17] MEDS: ZINC SULFATE 220 MG CAPSULE (FP) PO SCH (11:40)
[2020-03-17] MEDS: TAMSULOSIN HCL 0.4 MG CAP PO SCH (11:41)
[2020-03-17] MEDS: SENNOSIDES 8.6MG TABLET (FP) PO SCH ×2 (11:41→22:19)
[2020-03-17] MEDS: AMINO ACIDS/PROTEIN HYDROLYS 30 ML LIQUID.PKT PO SCH (11:41)
[2020-03-17] MEDS: VALSARTAN 160 MG TABLET PO SCH (11:41)
[2020-03-17] MEDS: DOCUSATE SODIUM 100 MG CAPSULE (FP) PO SCH ×2 (11:41→22:18)
[2020-03-17] MEDS: MULTIVITAMINS (DAILY MVI) TABLET (FP) PO SCH (11:41)
[2020-03-17] MEDS: CARVEDILOL 12.5 MG TABLET (FP) PO SCH ×2 (11:41→22:50)
[2020-03-17] MEDS: FAMOTIDINE 20 MG TABLET PO SCH ×2 (11:41→22:19)
[2020-03-17] MEDS: ERTAPENEM SODIUM 1 GM in SODIUM CHLORIDE 50 ML IVPB SCH (11:42)
[2020-03-17] MEDS: ACETAMINOPHEN 325 MG TABLET (FP) PO PRN ×2 (11:42→22:22)
--- NOTE | 2020-03-17 11:59 | PN ---
Progress Note (short form) - Note Progress Note: s: no cp sob palps dizzy Current Medications Generic Name Dose Route Start Last Admin Trade Name Freq PRN Reason Stop Dose Admin Acetaminophen 650 mg 03/14/20 11:45 03/17/20 11:42 Tylenol - PO 650 mg Q4H PRN Administration FEVER Amino Acids 30 ml 03/16/20 10:00 03/17/20 11:41 Prosource No Carb Liquid Pkt PO 30 ml DAILY [facility] Administration Artificial Tears 1 drop 03/14/20 11:45 Artificial Tears OU Q6H PRN DRY EYES Carvedilol 12.5 mg 03/14/20 22:00 03/17/20 11:41 Coreg - PO 12.5 mg BID [facility] Administration Digoxin 0.125 mg 03/15/20 10:00 03/17/20 11:39 Lanoxin - PO 0.125 mg DAILY [facility] Administration Docusate Sodium 100 mg 03/14/20 22:00 03/17/20 11:41 Colace - PO 100 mg BID [facility] Administration Famotidine 20 mg 03/14/20 22:00 03/17/20 11:41 Pepcid - PO 20 mg BID [facility] Administration Gabapentin 300 mg 03/14/20 14:00 03/17/20 07:07 Neurontin - PO 300 mg TID [facility] Administration Ertapenem 1 gm/ Sodium 50 mls @ 100 mls/hr 03/15/20 10:00 03/17/20 11:42 Chloride IVPB 100 mls/hr DAILY [facility] Administration Insulin Aspart 1 vial 03/14/20 16:30 03/17/20 07:06 Novolog Vial Sliding Scale - SQ 10 units ACHS [facility] Administration Protocol Insulin Detemir 30 units 03/14/20 22:00 03/16/20 22:11 Levemir Vial SQ 30 units HS [facility] Administration Magnesium Oxide 400 mg 03/14/20 22:00 03/17/20 11:40 Mag-Ox - PO 400 mg BID [facility] Administration Multivitamins/Minerals/Vitamin C 1 tab 03/15/20 10:00 03/17/20 11:41 Tab-A-Vit - PO 1 tab DAILY [facility] Administration Ondansetron HCl 4 mg 03/14/20 11:45 Zofran Injection IVPUSH Q6H PRN NAUSEA AND/OR VOMITING Polyethylene Glycol 17 gm 03/15/20 10:00 03/17/20 11:38 Miralax (For Daily Use) - PO 17 gm DAILY [facility] Administration Promethazine HCl 12.5 mg 03/14/20 11:45 Phenergan Injection - IVPUSH Q6H PRN NAUSEA-FOR RESCUE AFTER 15 MIN Quetiapine Fumarate 50 mg 03/14/20 22:00 03/16/20 22:08 Seroquel - PO 50 mg HS [facility] Administration Senna 1 tab 03/15/20 10:45 03/17/20 11:41 Senna - PO 1 tab BID [facility] Administration Tamsulosin HCl 0.4 mg 03/15/20 08:30 03/17/20 11:41 Flomax - PO 0.4 mg DAILY@0830 [facility] Administration Valsartan 320 mg 03/15/20 10:00 03/17/20 11:41 Diovan - PO 320 mg DAILY [facility] Administration Zinc Sulfate 220 mg 03/15/20 10:00 03/17/20 11:40 Orazinc - PO 220 mg DAILY [facility] Administration Vital Signs Period Temp Pulse Resp BP Sys/Leahy Pulse Ox Last 24 Hr 97.5 F-99.6 F 84-96 18-18 116-143/62-81 96-100 Constitutional: Yes: Well Nourished, No Distress Eyes: No: Sclera Icterus HENT: No: Nasal Congestion Respiratory: Yes: CTA Bilaterally. No: Accessory Muscle Use, Rales, Wheezes Gastrointestinal: Yes: Normal Bowel Sounds. No: Distention, Hepatomegaly, Palpable Mass, Tenderness Cardiovascular: Yes: Regular Rate and Rhythm JVD: No Heart Sounds: Yes: S1, S2. No: Gallop Murmur: No: Systolic Murmur, Diastolic Murmur Edema: No Integumentary: No: Jaundice Neurological: Yes: Alert. No: Seizure Psychiatric: No: Agitated CBC, BMP 03/17/20 06:47 03/17/20 06:47 Assessment/Plan echo 01/2020: normal LVEF, nl RV, nl valve function. CXR: ATX vs infiltrate R base, no effusions/congestion mibi 01/2020 mod sized area of inferolateral scar, no ischemia, EF 45% postop bleeding, PAD - s/p R fem-pop, BKA - 03/11 transferred to ICU and taken urgently to OR for bleeding - stable H/H after OR, received IVF, PRBCs with stable BP - manage per vascular CAD: - no angina sx's here - preop mibi shows inferolateral scar, no ischemia. mildly reduced EF. - continue statin, aspirin - on digoxin for unclear indication, levels ok here, continue--outpt f/u with prior treating physician DM: -per hospitalist HTN: - cont current meds HPL: -cont statin
--- NOTE | 2020-03-17 14:13 | PN ---
Progress Note (short form) - Note Progress Note: remainder of graft removed and femoral artery vein patch placed 03/12 s/p BKA s/p washout with infected graft removal and vac placement no complaints vac changed , wound is clean per surgery for US today Vital Signs Period Temp Pulse Resp BP Sys/Leahy Pulse Ox Last 24 Hr 97.5 F-99.6 F 84-96 18-18 116-139/62-81 96-100 cor-rrr lungs decreased bs at bases abd soft,nt immobilizer in place +vac s/p bka CBC, BMP 03/17/20 06:47 03/17/20 06:47 Microbiology 03/03/20 09:24 Groin - Right Gram Stain - Final 03/03/20 09:24 Groin - Right Wound Culture - Final Vr Ec Faecium Mr S Aureus Yeast Like Organism 02/26/20 14:37 Groin - Right Gram Stain - Final 02/26/20 14:37 Groin - Right Wound Culture - Final Klebsiella Pneumoniae - Esbl Vr Ec Faecium Enterococcus Faecalis 02/24/20 18:00 Blood - Peripheral Venous Blood Culture - Final NO GROWTH AFTER 5 DAYS INCUBATION 02/24/20 18:15 Blood - Peripheral Venous Blood Culture - Final NO GROWTH AFTER 5 DAYS INCUBATION 02/24/20 15:30 Groin - Right Gram Stain - Final 02/24/20 15:30 Groin - Right Wound Culture - Final Klebsiella Pneumoniae - Esbl Vr Ec Faecium 02/21/20 15:23 Blood - Peripheral Venous Blood Culture - Final NO GROWTH AFTER 5 DAYS INCUBATION 02/21/20 15:35 Blood - Peripheral Venous Blood Culture - Final NO GROWTH AFTER 5 DAYS INCUBATION 02/24/20 00:30 Urine - Urine - Catheterized Urine Culture - Final NO GROWTH OBTAINED 02/05/20 07:50 Blood - Peripheral Venous Blood Culture - Final NO GROWTH AFTER 5 DAYS INCUBATION 02/05/20 08:08 Blood - Peripheral Venous Blood Culture - Final NO GROWTH AFTER 5 DAYS INCUBATION 02/03/20 13:05 Blood - Peripheral Venous Blood Culture - Final NO GROWTH AFTER 5 DAYS INCUBATION 02/03/20 13:05 Blood - Peripheral Venous Blood Culture - Final NO GROWTH AFTER 5 DAYS INCUBATION 02/03/20 16:20 Toe - Right Hallux Gram Stain - Final 02/03/20 16:20 Toe - Right Hallux Wound Culture - Final Klebsiella Pneumoniae - Esbl Proteus Mirabilis Enterococcus Faecalis a/p s/p bleeding requiring surgery overnight with placement of vein patch and removal of graft 03/12/20 s/p BKA s/p removal infected graft contact isolation for MDRO ertapenem-since 02/27/20 -to continue hold daptomycin- cpk trending down-642 today PVD dementia schizophrenia will get sonogram of the leg- if there is no fluid around remaining graft will d/c antibiotics and observe d/w nursing staff for bedside sono today Problem List - Problems (1) Fever Code(s): R50.9 - FEVER, UNSPECIFIED (2) Diabetic foot infection Code(s): E11.628 - TYPE 2 DIABETES MELLITUS WITH OTHER SKIN COMPLICATIONS; L08.9 - LOCAL INFECTION OF THE SKIN AND SUBCUTANEOUS TISSUE, UNSP (3) PVD (peripheral vascular disease) Code(s): I73.9 - PERIPHERAL VASCULAR DISEASE, UNSPECIFIED (4) CKD (chronic kidney disease) Code(s): N18.9 - CHRONIC KIDNEY DISEASE, UNSPECIFIED (5) Anemia Code(s): D64.9 - ANEMIA, UNSPECIFIED
--- NOTE | 2020-03-17 15:18 | PN ---
Progress Note (short form) - Note Progress Note: BPH & Recurrent retention on liang catheter after multiple TOV Plan: Keep NPO for TUVP tomorrow
--- NOTE | 2020-03-17 15:22 | PN ---
Progress Note (short form) - Note Progress Note: S: No events overnight. No fevers. No complaints today. Pt with leaking liang with clear-yellow urine in collecting bag. O: Vital Signs Temperature 97.5 F L 03/17/20 10:00 Pulse Rate 84 03/17/20 11:39 Respiratory Rate 18 03/17/20 10:00 Blood Pressure 116/69 03/17/20 10:00 O2 Sat by Pulse Oximetry (%) 99 03/17/20 10:00 PE: Gen: NAD, awake, alert, sitting up in bed HEENT: Nc/AT, TERRI, MMM Neck: No JVD LUNG: CTA b/l despite poor inspiratory effort without wheezes/rales CARD: RRR no murmurs ABD: Did not want me to examine EXT: R upper thigh post-surgical wound healing wound vac in place, no surrounding erythema, R BKA stump bandaged Skin: See above CBC, BMP 03/17/20 06:47 03/17/20 06:47 Active Medications Acetaminophen (Tylenol -) 650 mg PO Q4H PRN PRN Reason: FEVER Last Admin: 03/17/20 11:42 Dose: 650 mg Documented by: Amino Acids (Prosource No Carb Liquid Pkt) 30 ml PO DAILY [facility] Last Admin: 03/17/20 11:41 Dose: 30 ml Documented by: Artificial Tears (Artificial Tears) 1 drop OU Q6H PRN PRN Reason: DRY EYES Carvedilol (Coreg -) 12.5 mg PO BID [facility] Last Admin: 03/17/20 11:41 Dose: 12.5 mg Documented by: Digoxin (Lanoxin -) 0.125 mg PO DAILY [facility] Last Admin: 03/17/20 11:39 Dose: 0.125 mg Documented by: Docusate Sodium (Colace -) 100 mg PO BID [facility] Last Admin: 03/17/20 11:41 Dose: 100 mg Documented by: Famotidine (Pepcid -) 20 mg PO BID [facility] Last Admin: 03/17/20 11:41 Dose: 20 mg Documented by: Gabapentin (Neurontin -) 300 mg PO TID [facility] Last Admin: 03/17/20 13:05 Dose: 300 mg Documented by: Insulin Aspart (Novolog Vial Sliding Scale -) 1 vial SQ [facility]; Protocol Last Admin: 03/17/20 12:37 Dose: Not Given Documented by: Insulin Detemir (Levemir Vial) 10 units SQ [facility] Magnesium Oxide (Mag-Ox -) 400 mg PO BID [facility] Last Admin: 03/17/20 11:40 Dose: 400 mg Documented by: Multivitamins/Minerals/Vitamin C (Tab-A-Vit -) 1 tab PO DAILY [facility] Last Admin: 03/17/20 11:41 Dose: 1 tab Documented by: Ondansetron HCl (Zofran Injection) 4 mg IVPUSH Q6H PRN PRN Reason: NAUSEA AND/OR VOMITING Polyethylene Glycol (Miralax (For Daily Use) -) 17 gm PO DAILY [facility] Last Admin: 03/17/20 11:38 Dose: 17 gm Documented by: Promethazine HCl (Phenergan Injection -) 12.5 mg IVPUSH Q6H PRN PRN Reason: NAUSEA-FOR RESCUE AFTER 15 MIN Quetiapine Fumarate (Seroquel -) 50 mg PO [facility] Last Admin: 03/16/20 22:08 Dose: 50 mg Documented by: Senna (Senna -) 1 tab PO BID [facility] Last Admin: 03/17/20 11:41 Dose: 1 tab Documented by: Tamsulosin HCl (Flomax -) 0.4 mg PO DAILY@0830 [facility] Last Admin: 03/17/20 11:41 Dose: 0.4 mg Documented by: Valsartan (Diovan -) 320 mg PO DAILY [facility] Last Admin: 03/17/20 11:41 Dose: 320 mg Documented by: Zinc Sulfate (Orazinc -) 220 mg PO DAILY [facility] Last Admin: 03/17/20 11:40 Dose: 220 mg Documented by: Microbiology 03/03/20 09:24 Groin - Right Gram Stain - Final 03/03/20 09:24 Groin - Right Wound Culture - Final Vr Ec Faecium Mr S Aureus Yeast Like Organism 02/26/20 14:37 Groin - Right Gram Stain - Final 02/26/20 14:37 Groin - Right Wound Culture - Final Klebsiella Pneumoniae - Esbl Vr Ec Faecium Enterococcus Faecalis 02/24/20 18:00 Blood - Peripheral Venous Blood Culture - Final NO GROWTH AFTER 5 DAYS INCUBATION 02/24/20 18:15 Blood - Peripheral Venous Blood Culture - Final NO GROWTH AFTER 5 DAYS INCUBATION 02/24/20 15:30 Groin - Right Gram Stain - Final 02/24/20 15:30 Groin - Right Wound Culture - Final Klebsiella Pneumoniae - Esbl Vr Ec Faecium 02/21/20 15:23 Blood - Peripheral Venous Blood Culture - Final NO GROWTH AFTER 5 DAYS INCUBATION 02/21/20 15:35 Blood - Peripheral Venous Blood Culture - Final NO GROWTH AFTER 5 DAYS INCUBATION 02/24/20 00:30 Urine - Urine - Catheterized Urine Culture - Final NO GROWTH OBTAINED 02/05/20 07:50 Blood - Peripheral Venous Blood Culture - Final NO GROWTH AFTER 5 DAYS INCUBATION 02/05/20 08:08 Blood - Peripheral Venous Blood Culture - Final NO GROWTH AFTER 5 DAYS INCUBATION 02/03/20 13:05 Blood - Peripheral Venous Blood Culture - Final NO GROWTH AFTER 5 DAYS INCUBATION 02/03/20 13:05 Blood - Peripheral Venous Blood Culture - Final NO GROWTH AFTER 5 DAYS INCUBATION 02/03/20 16:20 Toe - Right Hallux Gram Stain - Final 02/03/20 16:20 Toe - Right Hallux Wound Culture - Final Klebsiella Pneumoniae - Esbl Proteus Mirabilis Enterococcus Faecalis A/P: R foot dry gangrene s/o R BKA POD 7 POD 4 Prosthetic Revision and repair of R femoral artery with vein patch, endarterectomy Elevated CK Levels (resolved) Schizophrenia History of CAD CKD HFpEF T2DM with diabetic foot wound History of HTN History of HLD --U/S without any fluid collection --Per ID discontinued ABX and will monitor for now --Daptomycin previously d/c due to CK elevation (now normalizing) --Pt with wound vac to continue M/W/F as per surgical teams --Discussed with urology due to leaking around liang (flushes appropriately) --Will use diapers for now and he is to undergo procedure tomorrow --NPO at midnight --Due to NPO status will give Levemir 10HS tonight and may need escalated t herapy after procedure tomorrow AM --Statin still being held due to CK elevation during hospital course --H/H stable --Holding antiplatelet and anticoagulation medications due to breakdown of graft; to resume per surgery recs --Continue home medications; will need to f/u outpatient physician regarding digoxin as unclear reason diet: diabetic diet; NPO AT MIDNIGHT, urology procedure tomorrow AM; pt comes from long-term facility and once medically cleared can return with wound vac care instructions dispo: continue M/S monitoring. DNR/DNI Edil Loya DO - IM
[2020-03-17] MEDS ORDERED: QUEtiapine FUMARATE 25 MG TABLET ONE (20:57)
[2020-03-17] MEDS ORDERED: INSULIN (LEVEMIR) 100 UNITS/ML UNITS SQ SCH (22:00)
[2020-03-17] MEDS: QUEtiapine FUMARATE 50 MG TABLET PO SCH (22:19)
[2020-03-18] MEDS: INSULIN SLIDING SCALE (NOVOLOG) 1 VIAL SQ SCH ×4 (06:14→22:02)
[2020-03-18] MEDS: GABAPENTIN 300 MG CAPSULE PO SCH ×3 (06:15→22:03)
[2020-03-18 08:42] LABS: HEMATOCRIT 24.4 % (35.4-49); HEMOGLOBIN 8.2 GM/dL (11.7-16.9); MCH 29.5 pg (25.7-33.7); MCHC 33.8 g/dl (32.0-35.9); MEAN CELL VOLUME 87.3 fl (80-96); MEAN PLT VOLUME 8.1 fl (7.5-11.1); PLATELET COUNT 254 K/MM3 (134-434); RDW 15.2 % (11.9-15.9)
[2020-03-18 08:48] LABS: INR 1.16 (0.83-1.09); PROTHROMBIN TIME (PATIENT) 13.7 SEC (9.7-13.0)
[2020-03-18 09:10] LABS: ALBUMIN 1.7 g/dl (3.4-5.0); BLOOD UREA NITROGEN 26.4 mg/dL (7-18); CREATININE 1.2 mg/dL (0.55-1.3); MAGNESIUM 2.2 mg/dL (1.8-2.4); PHOSPHOROUS 4.9 mg/dL (2.5-4.9); POTASSIUM 4.1 mmol/L (3.5-5.1)
[2020-03-18 09:11] LABS: BILIRUBIN,TOTAL 0.6 mg/dL (0.2-1); TOT PROT 6.3 g/dl (6.4-8.2)
[2020-03-18] MEDS: DOCUSATE SODIUM 100 MG CAPSULE (FP) PO SCH ×2 (10:41→21:57)
[2020-03-18] MEDS: TAMSULOSIN HCL 0.4 MG CAP PO SCH (10:41)
[2020-03-18] MEDS: CARVEDILOL 12.5 MG TABLET (FP) PO SCH ×2 (10:41→21:58)
[2020-03-18] MEDS: POLYETHYLENE GLYCOL 3350 119 GM BTL PO SCH (10:42)
[2020-03-18] MEDS: VALSARTAN 160 MG TABLET PO SCH (10:42)
[2020-03-18] MEDS: MAGNESIUM OXIDE 400 MG TABLET (FP) PO SCH ×2 (10:42→22:03)
[2020-03-18] MEDS: ZINC SULFATE 220 MG CAPSULE (FP) PO SCH (10:42)
[2020-03-18] MEDS: FAMOTIDINE 20 MG TABLET PO SCH ×2 (10:43→21:59)
[2020-03-18] MEDS: MULTIVITAMINS (DAILY MVI) TABLET (FP) PO SCH (10:43)
[2020-03-18] MEDS: AMINO ACIDS/PROTEIN HYDROLYS 30 ML LIQUID.PKT PO SCH (10:43)
[2020-03-18] MEDS: SENNOSIDES 8.6MG TABLET (FP) PO SCH ×2 (10:43→21:58)
[2020-03-18] MEDS: DIGOXIN 0.125 MG TABLET (FP) PO SCH (10:44)
[2020-03-18] MEDS ORDERED: INSULIN (NOVOLOG) ASPART 100 UNITS/ML 10ML VIAL ONE (11:49)
--- NOTE | 2020-03-18 12:43 | PN ---
Progress Note (short form) - Note Progress Note: Surgery: Vital Signs Period Temp Pulse Resp BP Sys/Leahy Pulse Ox Last 24 Hr 98.2 F-98.9 F 81-89 16-19 114-137/69-77 97-100 Right Groin vac dressing changed today. Wound base clean, small amount of fibrinous material at superior aspect, otherwise clean and pink granulations tissue at the base. Malgorzata intact in the inferior aspect of the wound. Applied new black foam to the wound. A/P: 64 yo male s/p Resection of infected prosthetic graft and repair of right femoral artery with vein patch angioplasty. Endarterectomy femoral artery Continue wound vac changes MWF with black foam Pt seen today with Dr. Martínez
--- NOTE | 2020-03-18 12:50 | PN ---
Physical Exam: SUBJECTIVE: Patient seen and examined OBJECTIVE: Vital Signs Period Temp Pulse Resp BP Sys/Leahy Pulse Ox Last 24 Hr 98.2 F-98.9 F 81-89 16-19 114-137/69-77 97-100 PE: Gen: NAD, awake, alert, sitting up in bed HEENT: NC/AT, TERRI, EOMI Neck: Supple, No JVD LUNG: clear, no rales or wheezes.poor inspiratory effort CVS: RRR no murmurs ABD: soft non tender, BS+ EXT: R upper thigh post-surgical wound healing wound vac in place, no surrounding erythema, R BKA stump bandaged Laboratory Results - last 24 hr 03/17/20 03/17/20 03/18/20 16:44 22:21 06:13 WBC RBC Hgb Hct MCV MCH MCHC RDW Plt Count MPV PT with INR INR Sodium Potassium Chloride Carbon Dioxide Anion Gap BUN Creatinine Est GFR (CKD-EPI)AfAm Est GFR (CKD-EPI)NonAf POC Glucometer 186 300 109 Random Glucose Calcium Phosphorus Magnesium Total Bilirubin AST ALT Alkaline Phosphatase Total Protein Albumin 03/18/20 03/18/20 03/18/20 07:30 07:30 07:30 WBC 6.0 RBC 2.80 L Hgb 8.2 L Hct 24.4 L MCV 87.3 MCH 29.5 MCHC 33.8 RDW 15.2 Plt Count 254 MPV 8.1 PT with INR 13.70 H INR 1.16 H Sodium 141 Potassium 4.1 Chloride 106 Carbon Dioxide 30 Anion Gap 4 L BUN 26.4 H Creatinine 1.2 Est GFR (CKD-EPI)AfAm 74.66 Est GFR (CKD-EPI)NonAf 64.42 POC Glucometer Random Glucose 120 H Calcium 9.0 Phosphorus 4.9 Magnesium 2.2 Total Bilirubin 0.6 AST 23 ALT 19 Alkaline Phosphatase 86 Total Protein 6.3 L Albumin 1.7 L Active Medications Generic Name Dose Route Start Last Admin Trade Name Freq PRN Reason Stop Dose Admin Acetaminophen 650 mg 03/14/20 11:45 03/17/20 22:22 Tylenol - PO 650 mg Q4H PRN Administration FEVER Amino Acids 30 ml 03/16/20 10:00 03/18/20 10:43 Prosource No Carb Liquid Pkt PO Not Given DAILY [facility] Artificial Tears 1 drop 03/14/20 11:45 Artificial Tears OU Q6H PRN DRY EYES Carvedilol 12.5 mg 03/14/20 22:00 03/18/20 10:41 Coreg - PO Not Given BID [facility] Digoxin 0.125 mg 03/15/20 10:00 03/18/20 10:44 Lanoxin - PO 0.125 mg DAILY [facility] Administration Docusate Sodium 100 mg 03/14/20 22:00 03/18/20 10:41 Colace - PO Not Given BID [facility] Famotidine 20 mg 03/14/20 22:00 03/18/20 10:43 Pepcid - PO Not Given BID [facility] Gabapentin 300 mg 03/14/20 14:00 03/18/20 06:15 Neurontin - PO 300 mg TID [facility] Administration Insulin Aspart 1 vial 03/14/20 16:30 03/18/20 06:14 Novolog Vial Sliding Scale - SQ Not Given ACHS [facility] Protocol Insulin Detemir 10 units 03/17/20 22:00 03/17/20 22:38 Levemir Vial SQ 10 units HS [facility] Administration Magnesium Oxide 400 mg 03/14/20 22:00 03/18/20 10:42 Mag-Ox - PO Not Given BID [facility] Multivitamins/Minerals/Vitamin C 1 tab 03/15/20 10:00 03/18/20 10:43 Tab-A-Vit - PO Not Given DAILY [facility] Ondansetron HCl 4 mg 03/14/20 11:45 Zofran Injection IVPUSH Q6H PRN NAUSEA AND/OR VOMITING Polyethylene Glycol 17 gm 03/15/20 10:00 03/18/20 10:42 Miralax (For Daily Use) - PO Not Given DAILY [facility] Promethazine HCl 12.5 mg 03/14/20 11:45 Phenergan Injection - IVPUSH Q6H PRN NAUSEA-FOR RESCUE AFTER 15 MIN Quetiapine Fumarate 50 mg 03/14/20 22:00 03/17/20 22:19 Seroquel - PO 50 mg HS [facility] Administration Senna 1 tab 03/15/20 10:45 03/18/20 10:43 Senna - PO Not Given BID [facility] Tamsulosin HCl 0.4 mg 03/15/20 08:30 03/18/20 10:41 Flomax - PO Not Given DAILY@0830 [facility] Valsartan 320 mg 03/15/20 10:00 03/18/20 10:42 Diovan - PO Not Given DAILY [facility] Zinc Sulfate 220 mg 03/15/20 10:00 03/18/20 10:42 Orazinc - PO Not Given DAILY [facility] ASSESSMENT/PLAN: 64 year old male with a significant past medical history of DM, schizophrenia, HTN, HLD, GERD, dementia, EtOH use disorder who had his right knee great toe amputated apx 1 month prior to admission, presents to the ED on 02/03/2020 with right 2nd digit gangrene 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 POD 7 POD 4 Prosthetic Revision and repair of R femoral artery with vein patch, endarterectomy Holding antiplatelet and anticoagulation medications due to breakdown of graft; to resume per surgery recs Daptomycin induced Elevated CK Levels improving hold statin off Abx now no fever, no leukocytosis stable H&H wound vac to continue M/W/F as per surgical teams # BPH urology planning for TUVP (originally was today but cancelled) incontinence will bladder scan the pt, if no retention then will d/c liang Schizophrenia CAD CKD HFpEF T2DM HTN HLD DVT prophylaxis with SCD DNR/DNI Visit type - Emergency Visit Emergency Visit: Yes ED Registration Date: 02/03/20 Care time: The patient presented to the Emergency Department on the above date and was hospitalized for further evaluation of their emergent condition. - New Patient This patient is new to me today: Yes Date on this admission: 03/18/20 - Critical Care Critical Care patient: No - Discharge Referral Referred to [facility] Med P.C.: No
[2020-03-18] MEDS ORDERED: QUEtiapine FUMARATE 25 MG TABLET ONE (21:43)
[2020-03-18] MEDS: INSULIN (LEVEMIR) 100 UNITS/ML UNITS SQ SCH (21:58)
[2020-03-18] MEDS: QUEtiapine FUMARATE 50 MG TABLET PO SCH (22:03)
[2020-03-19] MEDS: GABAPENTIN 300 MG CAPSULE PO SCH ×3 (06:15→21:58)
[2020-03-19] MEDS: INSULIN SLIDING SCALE (NOVOLOG) 1 VIAL SQ SCH ×4 (06:15→21:58)
[2020-03-19 08:49] LABS: BASO % 0.3 % (0-2.0); EOS % 5.6 % (0-4.5); HEMATOCRIT 24.8 % (35.4-49); HEMOGLOBIN 8.5 GM/dL (11.7-16.9); LYMPH % 17.7 % (8-40); MCH 29.4 pg (25.7-33.7); MCHC 34.1 g/dl (32.0-35.9); MEAN CELL VOLUME 86.2 fl (80-96); MEAN PLT VOLUME 7.7 fl (7.5-11.1); MONO % 8.9 % (3.8-10.2); NEUT % 67.5 % (42.8-82.8); PLATELET COUNT 282 K/MM3 (134-434); RBC 2.88 M/mm3 (4.00-5.60); RDW 14.8 % (11.9-15.9); WHITE BLOOD COUNT 6.5 K/mm3 (4.0-10.0)
[2020-03-19 09:10] LABS: ALBUMIN 1.8 g/dl (3.4-5.0); BILIRUBIN,TOTAL 0.2 mg/dL (0.2-1); BLOOD UREA NITROGEN 25.4 mg/dL (7-18); CALCIUM 8.7 mg/dL (8.5-10.1); CREATININE 1.2 mg/dL (0.55-1.3); TOT PROT 6.7 g/dl (6.4-8.2)
[2020-03-19] MEDS: FAMOTIDINE 20 MG TABLET PO SCH ×2 (09:52→21:56)
[2020-03-19] MEDS: TAMSULOSIN HCL 0.4 MG CAP PO SCH (09:52)
[2020-03-19] MEDS: CARVEDILOL 12.5 MG TABLET (FP) PO SCH ×2 (09:52→21:55)
[2020-03-19] MEDS: DIGOXIN 0.125 MG TABLET (FP) PO SCH (09:52)
[2020-03-19] MEDS: AMINO ACIDS/PROTEIN HYDROLYS 30 ML LIQUID.PKT PO SCH (09:53)
[2020-03-19] MEDS: MULTIVITAMINS (DAILY MVI) TABLET (FP) PO SCH (09:53)
[2020-03-19] MEDS: SENNOSIDES 8.6MG TABLET (FP) PO SCH ×2 (09:53→21:55)
[2020-03-19] MEDS: DOCUSATE SODIUM 100 MG CAPSULE (FP) PO SCH ×2 (09:53→21:55)
[2020-03-19] MEDS: VALSARTAN 160 MG TABLET PO SCH (09:54)
[2020-03-19] MEDS: MAGNESIUM OXIDE 400 MG TABLET (FP) PO SCH ×2 (09:55→21:57)
[2020-03-19] MEDS: INSULIN (LEVEMIR) 100 UNITS/ML UNITS SQ SCH ×2 (09:55→21:56)
[2020-03-19] MEDS: ZINC SULFATE 220 MG CAPSULE (FP) PO SCH (09:56)
[2020-03-19] MEDS: POLYETHYLENE GLYCOL 3350 119 GM BTL PO SCH (09:56)
--- NOTE | 2020-03-19 12:57 | PN ---
Progress Note (short form) - Note Progress Note: UROLOGY NOTE BPH & Recurrent retention on liang catheter after multiple TOV. He is leaking around the catheter with lower abd pain. O/E distended bladder. 16 F liang catheter replaced and drain clear urine. Plan: will schedule him for cystoscopy possible SPC insertion.
--- NOTE | 2020-03-19 15:23 | PN ---
Progress Note, Physician Chief Complaint: No acute events overnight History of Present Illness: 64 years old man DNR/DNI, [facility] resident [[facility]] multiple medical comorbidities including uncontrolled type 2 diabetes mellitus, hypertension, hypercholesteremia, CKD stage III, paroxysmal atrial fibrillation, peripheral artery disease, congestive heart failure, Right foot osteomyelitis status post right great toe amputation on IV Zosyn and vancomycin day 10 at [facility], , patient is transferred to [place] ED for further evaluation and management, right second digit gangrene. - Current Medication List Current Medications: Active Medications Acetaminophen (Tylenol -) 650 mg PO Q4H PRN PRN Reason: FEVER Last Admin: 03/17/20 22:22 Dose: 650 mg Documented by: Amino Acids (Prosource No Carb Liquid Pkt) 30 ml PO DAILY [facility] Last Admin: 03/19/20 09:53 Dose: 30 ml Documented by: Artificial Tears (Artificial Tears) 1 drop OU Q6H PRN PRN Reason: DRY EYES Carvedilol (Coreg -) 12.5 mg PO BID [facility] Last Admin: 03/19/20 09:52 Dose: 12.5 mg Documented by: Digoxin (Lanoxin -) 0.125 mg PO DAILY [facility] Last Admin: 03/19/20 09:52 Dose: 0.125 mg Documented by: Docusate Sodium (Colace -) 100 mg PO BID [facility] Last Admin: 03/19/20 09:53 Dose: 100 mg Documented by: Famotidine (Pepcid -) 20 mg PO BID [facility] Last Admin: 03/19/20 09:52 Dose: 20 mg Documented by: Gabapentin (Neurontin -) 300 mg PO TID [facility] Last Admin: 03/19/20 14:28 Dose: 300 mg Documented by: Insulin Aspart (Novolog Vial Sliding Scale -) 1 vial SQ [facility]; Protocol Last Admin: 03/19/20 11:52 Dose: 12 units Documented by: Insulin Detemir (Levemir Vial) 16 units SQ BID [facility] Last Admin: 03/19/20 09:55 Dose: 16 units Documented by: Magnesium Oxide (Mag-Ox -) 400 mg PO BID [facility] Last Admin: 03/19/20 09:55 Dose: 400 mg Documented by: Multivitamins/Minerals/Vitamin C (Tab-A-Vit -) 1 tab PO DAILY [facility] Last Admin: 03/19/20 09:53 Dose: 1 tab Documented by: Nystatin (Mycostatin Cream -) 1 applic TP BID [facility] Ondansetron HCl (Zofran Injection) 4 mg IVPUSH Q6H PRN PRN Reason: NAUSEA AND/OR VOMITING Polyethylene Glycol (Miralax (For Daily Use) -) 17 gm PO DAILY [facility] Last Admin: 03/19/20 09:56 Dose: 17 gm Documented by: Promethazine HCl (Phenergan Injection -) 12.5 mg IVPUSH Q6H PRN PRN Reason: NAUSEA-FOR RESCUE AFTER 15 MIN Quetiapine Fumarate (Seroquel -) 50 mg PO HS [facility] Last Admin: 03/18/20 22:03 Dose: 50 mg Documented by: Senna (Senna -) 1 tab PO BID [facility] Last Admin: 03/19/20 09:53 Dose: 1 tab Documented by: Tamsulosin HCl (Flomax -) 0.4 mg PO DAILY@0830 [facility] Last Admin: 03/19/20 09:52 Dose: 0.4 mg Documented by: Valsartan (Diovan -) 320 mg PO DAILY [facility] Last Admin: 03/19/20 09:54 Dose: 320 mg Documented by: Zinc Sulfate (Orazinc -) 220 mg PO DAILY [facility] Last Admin: 03/19/20 09:56 Dose: 220 mg Documented by: - Objective Vital Signs: Vital Signs Temperature 97.8 F 03/19/20 10:00 Pulse Rate 84 03/19/20 10:00 Respiratory Rate 18 03/19/20 10:00 Blood Pressure 119/67 03/19/20 10:00 O2 Sat by Pulse Oximetry (%) 100 03/19/20 10:00 Constitutional: Yes: Well Nourished, No Distress, Calm Eyes: Yes: WNL, Conjunctiva Clear, EOM Intact HENT: Yes: WNL, Atraumatic, Normocephalic Neck: Yes: WNL, Supple, Trachea Midline Cardiovascular: Yes: WNL, Regular Rate and Rhythm Respiratory: Yes: WNL, Regular, CTA Bilaterally Gastrointestinal: Yes: WNL, Normal Bowel Sounds, Soft Musculoskeletal: Yes: WNL Extremities: Yes: WNL Integumentary: Yes: WNL Neurological: Yes: WNL, Alert, Oriented Psychiatric: Yes: WNL, Alert, Oriented Labs: CBC, BMP 03/19/20 08:25 03/19/20 08:25 INR, PTT INR 1.16 (0.83-1.09) H 03/18/20 07:30 Fibrinogen > 500.0 mg/dL (238-498) H 03/11/20 23:05 Impression/Plan Impression/Plan: 64 years old man DNR/DNI, [facility] resident [[facility]] multiple medical comorbidities including uncontrolled type 2 diabetes mellitus, hypertension, hypercholesteremia, CKD stage III, paroxysmal atrial fibrillation, peripheral artery disease, congestive heart failure, Right foot osteomyelitis status post right great toe amputation on IV Zosyn and vancomycin day 10 at [facility], , patient is transferred to [place] ED for further evaluation and management, right second digit gangrene. 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 POD 7 POD 4 Prosthetic Revision and repair of R femoral artery with vein patch, endarterectomy Holding antiplatelet and anticoagulation medications due to breakdown of graft; to resume per surgery recs Daptomycin induced Elevated CK Levels improving hold statin off Abx now no fever, no leukocytosis stable H&H wound vac to continue M/W/F as per surgical teams # BPH urology planning for TUVP incontinence will bladder scan the pt, if no retention then will d/c liang (2) Type 2 diabetes mellitus Assessment/Plan: Correction dose insulin optimize as per Accu-Chek, Also on levemir On diabetic diet Code(s): E11.65 - TYPE 2 DIABETES MELLITUS WITH HYPERGLYCEMIA (3) Paroxysmal atrial fibrillation Assessment/Plan: History of present atrial fibrillation, current EKG normal sinus rhythm, on digoxin follow dig levels resume home medications. Digoxin level=.07 on Mar 06 s/p ASA, and plavix Code(s): I48.0 - PAROXYSMAL ATRIAL FIBRILLATION (4) CKD stage 3 due to type 2 diabetes mellitus Assessment/Plan: Due to diabetes nephropathy follow-up BMP are stable today's creatinine is 1.2 Code(s): E11.22 - TYPE 2 DIABETES MELLITUS W DIABETIC CHRONIC KIDNEY DISEASE; N18.3 - CHRONIC KIDNEY DISEASE, STAGE 3 (MODERATE) (5) Hypertension Assessment/Plan: Well-controlled continue coreg Code(s): I10 - ESSENTIAL (PRIMARY) HYPERTENSION (6) Congestive heart failure Assessment/Plan: Patient has normal ejection fraction, continue coreg, and digoxin, digoxin level is 0.67 on Mar 06 Code(s): I50.9 - HEART FAILURE, UNSPECIFIED Qualifiers: Heart failure type: unspecified (7) Anemia Assessment/Plan: Follow-up anemia work-up and H&H. Hemoglobin is stable Code(s): D64.9 - ANEMIA, UNSPECIFIED DVT prophylaxis with SCD DNR/DNI Visit type - Emergency Visit Emergency Visit: No - New Patient This patient is new to me today: No - Critical Care Critical Care patient: No - Discharge Referral Referred to [facility] Med P.C.: No
[2020-03-19] MEDS ORDERED: QUEtiapine FUMARATE 25 MG TABLET ONE (21:42)
[2020-03-19] MEDS: NYSTATIN 100,000 UNIT/GM TOPICAL CREAM 15 GM TUBE TP SCH (21:58)
[2020-03-19] MEDS: QUEtiapine FUMARATE 50 MG TABLET PO SCH (22:00)
[2020-03-20] MEDS: GABAPENTIN 300 MG CAPSULE PO SCH ×3 (06:36→22:25)
[2020-03-20] MEDS: INSULIN SLIDING SCALE (NOVOLOG) 1 VIAL SQ SCH ×4 (06:37→22:25)
[2020-03-20] MEDS: TAMSULOSIN HCL 0.4 MG CAP PO SCH (09:00)
[2020-03-20] MEDS ORDERED: PT OWN MED DRAWER 7, Y5N ONE (09:57)
[2020-03-20] MEDS: ZINC SULFATE 220 MG CAPSULE (FP) PO SCH (09:59)
[2020-03-20] MEDS: DIGOXIN 0.125 MG TABLET (FP) PO SCH (09:59)
[2020-03-20] MEDS: CARVEDILOL 12.5 MG TABLET (FP) PO SCH ×2 (09:59→22:22)
[2020-03-20] MEDS: SENNOSIDES 8.6MG TABLET (FP) PO SCH ×2 (10:00→22:22)
[2020-03-20] MEDS: FAMOTIDINE 20 MG TABLET PO SCH ×2 (10:00→22:21)
[2020-03-20] MEDS: MULTIVITAMINS (DAILY MVI) TABLET (FP) PO SCH (10:00)
[2020-03-20] MEDS: VALSARTAN 160 MG TABLET PO SCH (10:00)
[2020-03-20] MEDS: AMINO ACIDS/PROTEIN HYDROLYS 30 ML LIQUID.PKT PO SCH (10:01)
[2020-03-20] MEDS: MAGNESIUM OXIDE 400 MG TABLET (FP) PO SCH ×2 (10:01→22:22)
[2020-03-20] MEDS: DOCUSATE SODIUM 100 MG CAPSULE (FP) PO SCH ×2 (10:02→22:21)
[2020-03-20] MEDS: NYSTATIN 100,000 UNIT/GM TOPICAL CREAM 15 GM TUBE TP SCH ×2 (10:02→22:24)
[2020-03-20] MEDS: POLYETHYLENE GLYCOL 3350 119 GM BTL PO SCH (10:02)
[2020-03-20] MEDS: INSULIN (LEVEMIR) 100 UNITS/ML UNITS SQ SCH ×2 (10:10→22:24)
--- NOTE | 2020-03-20 14:30 | PN ---
Progress Note, Physician Chief Complaint: No acute events overnight History of Present Illness: 64 years old male DNR/DNI, skilled nursing resident [[facility] skilled [facility]] multiple medical co-morbidities including uncontrolled type 2 diabetes mellitus, hypertension, hypercholesteremia, CKD stage III, paroxysmal atrial fibrillation, peripheral artery disease, congestive heart failure, Right foot osteomyelitis status post right great toe amputation on IV Zosyn and vancomycin day 10 at skilled nursing, patient is transferred to [place] [facility] for further evaluation and management, right second digit gangrene. - Current Medication List Current Medications: Active Medications Acetaminophen (Tylenol -) 650 mg PO Q4H PRN PRN Reason: FEVER Last Admin: 03/17/20 22:22 Dose: 650 mg Documented by: Amino Acids (Prosource No Carb Liquid Pkt) 30 ml PO DAILY [facility] Last Admin: 03/20/20 10:01 Dose: 30 ml Documented by: Artificial Tears (Artificial Tears) 1 drop OU Q6H PRN PRN Reason: DRY EYES Carvedilol (Coreg -) 12.5 mg PO BID [facility] Last Admin: 03/20/20 09:59 Dose: 12.5 mg Documented by: Digoxin (Lanoxin -) 0.125 mg PO DAILY [facility] Last Admin: 03/20/20 09:59 Dose: 0.125 mg Documented by: Docusate Sodium (Colace -) 100 mg PO BID [facility] Last Admin: 03/20/20 10:02 Dose: 100 mg Documented by: Famotidine (Pepcid -) 20 mg PO BID [facility] Last Admin: 03/20/20 10:00 Dose: 20 mg Documented by: Gabapentin (Neurontin -) 300 mg PO TID [facility] Last Admin: 03/20/20 06:36 Dose: 300 mg Documented by: Insulin Aspart (Novolog Vial Sliding Scale -) 1 vial SQ [facility]; Protocol Last Admin: 03/20/20 11:45 Dose: 14 units Documented by: Insulin Detemir (Levemir Vial) 16 units SQ BID [facility] Last Admin: 03/20/20 10:10 Dose: 16 units Documented by: Magnesium Oxide (Mag-Ox -) 400 mg PO BID [facility] Last Admin: 03/20/20 10:01 Dose: 400 mg Documented by: Multivitamins/Minerals/Vitamin C (Tab-A-Vit -) 1 tab PO DAILY [facility] Last Admin: 03/20/20 10:00 Dose: 1 tab Documented by: Nystatin (Mycostatin Cream -) 1 applic TP BID [facility] Last Admin: 03/20/20 10:02 Dose: 1 applic Documented by: Ondansetron HCl (Zofran Injection) 4 mg IVPUSH Q6H PRN PRN Reason: NAUSEA AND/OR VOMITING Polyethylene Glycol (Miralax (For Daily Use) -) 17 gm PO DAILY [facility] Last Admin: 03/20/20 10:02 Dose: 17 gm Documented by: Promethazine HCl (Phenergan Injection -) 12.5 mg IVPUSH Q6H PRN PRN Reason: NAUSEA-FOR RESCUE AFTER 15 MIN Quetiapine Fumarate (Seroquel -) 50 mg PO HS [facility] Last Admin: 03/19/20 22:00 Dose: 50 mg Documented by: Senna (Senna -) 1 tab PO BID [facility] Last Admin: 03/20/20 10:00 Dose: 1 tab Documented by: Tamsulosin HCl (Flomax -) 0.4 mg PO DAILY@0830 [facility] Last Admin: 03/20/20 09:00 Dose: 0.4 mg Documented by: Valsartan (Diovan -) 320 mg PO DAILY [facility] Last Admin: 03/20/20 10:00 Dose: 320 mg Documented by: Zinc Sulfate (Orazinc -) 220 mg PO DAILY [facility] Last Admin: 03/20/20 09:59 Dose: 220 mg Documented by: - Objective Vital Signs: Vital Signs Temperature 98.1 F 03/20/20 09:02 Pulse Rate 84 03/20/20 09:59 Respiratory Rate 20 03/20/20 09:02 Blood Pressure 146/70 03/20/20 09:02 O2 Sat by Pulse Oximetry (%) 98 03/20/20 09:02 Constitutional: Yes: Well Nourished, No Distress, Calm Eyes: Yes: WNL, Conjunctiva Clear, EOM Intact HENT: Yes: WNL, Atraumatic, Normocephalic Neck: Yes: WNL, Trachea Midline Cardiovascular: Yes: WNL, Regular Rate and Rhythm Respiratory: Yes: WNL, Regular, CTA Bilaterally, Tachypnea Gastrointestinal: Yes: WNL, Normal Bowel Sounds, Soft Musculoskeletal: Yes: WNL Extremities: Yes: WNL Edema: No Peripheral Pulses WNL: Yes Peripheral Pulses: Left Radial: 2+, Right Radial: 2+ Integumentary: Yes: WNL Neurological: Yes: WNL, Alert, Oriented ...Motor Strength: WNL Psychiatric: Yes: WNL, Alert, Oriented Labs: CBC, BMP 03/19/20 08:25 03/19/20 08:25 INR, PTT INR 1.16 (0.83-1.09) H 03/18/20 07:30 Fibrinogen > 500.0 mg/dL (238-498) H 03/11/20 23:05 Impression/Plan Impression/Plan: 64 years old man DNR/DNI, skilled nursing resident [[facility] skilled [facility]] multiple medical comorbidities including uncontrolled type 2 diabetes mellitus, hypertension, hypercholesteremia, CKD stage III, paroxysmal atrial fibrillation, peripheral artery disease, congestive heart failure, Right foot osteomyelitis status post right great toe amputation on IV Zosyn and vancomycin day 10 at skilled nursing, patient is transferred to [facility] for further evaluation and management, right second digit gangrene. Plan 1. Right foot dry gangrene s/p R BKA on Mar 08 Prosthetic Revision and repair of R femoral artery with vein patch, endar terectomy on Mar 12 Holding antiplatelet and anticoagulation medications due to breakdown of graft; to resume per surgery recs Daptomycin induced Elevated CK Levels improving hold statin off Abx now no fever, no leukocytosis stable Hgb & Hct wound vac to continue M/W/F as per surgical teams 2. BPH Appreciate urology follow-up Patient is leaking around liang cathetar with lower abdominal pain. Plan for cystoscopy with possible SPC insertion (3) Type 2 diabetes mellitus Assessment/Plan: Correction dose insulin optimize as per Accu-Chek, Also on levemir On diabetic diet Code(s): E11.65 - TYPE 2 DIABETES MELLITUS WITH HYPERGLYCEMIA (4) Paroxysmal atrial fibrillation Assessment/Plan: History of present atrial fibrillation, current EKG normal sinus rhythm, on digoxin follow digoxin level Digoxin level=.07 on Mar 06 s/p ASA, and plavix Code(s): I48.0 - PAROXYSMAL ATRIAL FIBRILLATION (5) CKD stage 3 due to type 2 diabetes mellitus Assessment/Plan: Due to diabetes nephropathy follow-up BMP are stable today's creatinine is 1.2 Code(s): E11.22 - TYPE 2 DIABETES MELLITUS W DIABETIC CHRONIC KIDNEY DISEASE; N18.3 - CHRONIC KIDNEY DISEASE, STAGE 3 (MODERATE) (6) Hypertension Assessment/Plan: Well-controlled continue coreg Code(s): I10 - ESSENTIAL (PRIMARY) HYPERTENSION (7) Congestive heart failure Assessment/Plan: Patient has normal ejection fraction, continue coreg, and digoxin, digoxin level is 0.67 on Mar 06 Code(s): I50.9 - HEART FAILURE, UNSPECIFIED Qualifiers: Heart failure type: unspecified (8) Anemia Assessment/Plan: Follow-up anemia work-up and H&H. Hemoglobin is stable Code(s): D64.9 - ANEMIA, UNSPECIFIED DVT prophylaxis with SCD DNR/DNI Visit type - Emergency Visit Emergency Visit: Yes ED Registration Date: 02/03/20 Care time: The patient presented to the Emergency Department on the above date and was hospitalized for further evaluation of their emergent condition. - New Patient This patient is new to me today: No - Critical Care Critical Care patient: No - Discharge Referral Referred to [facility] Med P.C.: No
--- NOTE | 2020-03-20 19:33 | PN ---
Progress Note (short form) - Note Progress Note: UROLOGY NOTE NPO after midnight for TUVP tomorrow
[2020-03-20] MEDS ORDERED: QUEtiapine FUMARATE 25 MG TABLET ONE (22:09)
[2020-03-20] MEDS: QUEtiapine FUMARATE 50 MG TABLET PO SCH (22:26)
[2020-03-21] MEDS: INSULIN SLIDING SCALE (NOVOLOG) 1 VIAL SQ SCH ×4 (06:43→22:47)
[2020-03-21] MEDS: GABAPENTIN 300 MG CAPSULE PO SCH ×3 (06:43→22:45)
[2020-03-21] MEDS ORDERED: INSULIN (NOVOLOG) ASPART 100 UNITS/ML 10ML VIAL ONE (06:48)
--- NOTE | 2020-03-21 10:49 | PN ---
Progress Note (short form) - Note Progress Note: s:lethargic Current Medications Generic Name Dose Route Start Last Admin Trade Name Freq PRN Reason Stop Dose Admin Acetaminophen 650 mg 03/14/20 11:45 03/17/20 22:22 Tylenol - PO 650 mg Q4H PRN Administration FEVER Amino Acids 30 ml 03/16/20 10:00 03/20/20 10:01 Prosource No Carb Liquid Pkt PO 30 ml DAILY [facility] Administration Artificial Tears 1 drop 03/14/20 11:45 Artificial Tears OU Q6H PRN DRY EYES Carvedilol 12.5 mg 03/14/20 22:00 03/20/20 22:22 Coreg - PO 12.5 mg BID [facility] Administration Digoxin 0.125 mg 03/15/20 10:00 03/20/20 09:59 Lanoxin - PO 0.125 mg DAILY [facility] Administration Docusate Sodium 100 mg 03/14/20 22:00 03/20/20 22:21 Colace - PO 100 mg BID [facility] Administration Famotidine 20 mg 03/14/20 22:00 03/20/20 22:21 Pepcid - PO 20 mg BID [facility] Administration Gabapentin 300 mg 03/14/20 14:00 03/21/20 06:43 Neurontin - PO 300 mg TID [facility] Administration Insulin Aspart 1 vial 03/14/20 16:30 03/21/20 06:43 Novolog Vial Sliding Scale - SQ Not Given ACHS [facility] Protocol Insulin Detemir 16 units 03/18/20 22:00 03/20/20 22:24 Levemir Vial SQ 16 units BID [facility] Administration Magnesium Oxide 400 mg 03/14/20 22:00 03/20/20 22:22 Mag-Ox - PO 400 mg BID [facility] Administration Multivitamins/Minerals/Vitamin C 1 tab 03/15/20 10:00 03/20/20 10:00 Tab-A-Vit - PO 1 tab DAILY [facility] Administration Nystatin 1 applic 03/19/20 22:00 03/20/20 22:24 Mycostatin Cream - TP 1 applic BID [facility] Administration Ondansetron HCl 4 mg 03/14/20 11:45 Zofran Injection IVPUSH Q6H PRN NAUSEA AND/OR VOMITING Polyethylene Glycol 17 gm 03/15/20 10:00 03/20/20 10:02 Miralax (For Daily Use) - PO 17 gm DAILY [facility] Administration Promethazine HCl 12.5 mg 03/14/20 11:45 Phenergan Injection - IVPUSH Q6H PRN NAUSEA-FOR RESCUE AFTER 15 MIN Quetiapine Fumarate 50 mg 03/14/20 22:00 03/20/20 22:26 Seroquel - PO 50 mg HS [facility] Administration Senna 1 tab 03/15/20 10:45 03/20/20 22:22 Senna - PO 1 tab BID [facility] Administration Tamsulosin HCl 0.4 mg 03/15/20 08:30 03/20/20 09:00 Flomax - PO 0.4 mg DAILY@0830 [facility] Administration Valsartan 320 mg 03/15/20 10:00 03/20/20 10:00 Diovan - PO 320 mg DAILY [facility] Administration Zinc Sulfate 220 mg 03/15/20 10:00 03/20/20 09:59 Orazinc - PO 220 mg DAILY [facility] Administration Vital Signs Period Temp Pulse Resp BP Sys/Leahy Pulse Ox Last 24 Hr 98.0 F-98.8 F 71-101 20-120 107-149/53-73 83-98 Constitutional: Yes: Well Nourished, No Distress Eyes: No: Sclera Icterus HENT: No: Nasal Congestion Respiratory: Yes: CTA Bilaterally. No: Accessory Muscle Use, Rales, Wheezes Gastrointestinal: Yes: Normal Bowel Sounds. No: Distention, Hepatomegaly, Palpable Mass, Tenderness Cardiovascular: Yes: Regular Rate and Rhythm JVD: No Heart Sounds: Yes: S1, S2. No: Gallop Murmur: No: Systolic Murmur, Diastolic Murmur Edema: No Integumentary: No: Jaundice Neurological: Yes lethargic Psychiatric: No: Agitated CBC, BMP 03/19/20 08:25 03/19/20 08:25 Assessment/Plan echo 01/2020: normal LVEF, nl RV, nl valve function. CXR: ATX vs infiltrate R base, no effusions/congestion mibi 01/2020 mod sized area of inferolateral scar, no ischemia, EF 45% postop bleeding, PAD - s/p R fem-pop, BKA - 03/11 transferred to ICU and taken urgently to OR for bleeding - stable H/H after OR, received IVF, PRBCs with stable BP - manage per vascular CAD: - no angina sx's here - preop mibi shows inferolateral scar, no ischemia. mildly reduced EF. - continue statin, aspirin - on digoxin for unclear indication, levels ok here, continue--outpt f/u with prior treating physician DM: -per hospitalist HTN: - cont current meds HPL: -cont statin
[2020-03-21] MEDS: DOCUSATE SODIUM 100 MG CAPSULE (FP) PO SCH ×2 (12:38→22:44)
[2020-03-21] MEDS: TAMSULOSIN HCL 0.4 MG CAP PO SCH (12:38)
[2020-03-21] MEDS: MAGNESIUM OXIDE 400 MG TABLET (FP) PO SCH ×2 (12:38→22:45)
[2020-03-21] MEDS: INSULIN (LEVEMIR) 100 UNITS/ML UNITS SQ SCH ×2 (12:38→22:45)
[2020-03-21] MEDS: POLYETHYLENE GLYCOL 3350 119 GM BTL PO SCH (12:38)
[2020-03-21] MEDS: ZINC SULFATE 220 MG CAPSULE (FP) PO SCH (12:38)
[2020-03-21] MEDS: MULTIVITAMINS (DAILY MVI) TABLET (FP) PO SCH (12:39)
[2020-03-21] MEDS: SENNOSIDES 8.6MG TABLET (FP) PO SCH ×2 (12:39→22:44)
[2020-03-21] MEDS: AMINO ACIDS/PROTEIN HYDROLYS 30 ML LIQUID.PKT PO SCH (12:39)
[2020-03-21] MEDS: FAMOTIDINE 20 MG TABLET PO SCH ×2 (12:40→22:45)
[2020-03-21] MEDS: CARVEDILOL 12.5 MG TABLET (FP) PO SCH ×2 (12:40→22:45)
[2020-03-21] MEDS: DIGOXIN 0.125 MG TABLET (FP) PO SCH (12:40)
[2020-03-21] MEDS: VALSARTAN 160 MG TABLET PO SCH (12:40)
[2020-03-21] MEDS ORDERED: ONDANSETRON 4 MG/2 ML VIAL IVPUSH PRN ×2 (12:48→15:03)
[2020-03-21] MEDS ORDERED: LIDOCAINE HCL/PF 2% SDV 5ML VIAL ONE (12:52)
[2020-03-21] MEDS ORDERED: ETOMIDATE 20 MG/10 ML AMPUL IVPUSH ONE (12:52)
[2020-03-21] MEDS ORDERED: LACTATED RINGERS SOLUTION 1,000 ML IV SCH (13:00)
[2020-03-21] MEDS ORDERED: ceFAZolin SODIUM 1 GM VIAL IVPB ONE (13:20)
--- NOTE | 2020-03-21 13:47 | PN ---
Physical Exam: SUBJECTIVE: Patient seen and examined OBJECTIVE: Vital Signs Period Temp Pulse Resp BP Sys/Leahy Pulse Ox Last 24 Hr 98.0 F-98.8 F 71-101 20-120 107-149/53-73 83-98 Gen: NAD, awake, alert, sitting up in bed HEENT: NC/AT, TERRI, EOMI Neck: Supple, No JVD LUNG: clear, no rales or wheezes.poor inspiratory effort CVS: RRR no murmurs ABD: soft non tender, BS+ EXT: R upper thigh post-surgical wound healing wound vac in place, no surrounding erythema, R BKA, wound clean, no discharge expressed Laboratory Results - last 24 hr 03/20/20 03/20/20 03/21/20 16:31 22:20 06:15 POC Glucometer 246 312 129 Active Medications Generic Name Dose Route Start Last Admin Trade Name Freq PRN Reason Stop Dose Admin Acetaminophen 650 mg 03/14/20 11:45 03/17/20 22:22 Tylenol - PO 650 mg Q4H PRN Administration FEVER Amino Acids 30 ml 03/16/20 10:00 03/21/20 12:39 Prosource No Carb Liquid Pkt PO Not Given DAILY HUGO Artificial Tears 1 drop 03/14/20 11:45 Artificial Tears OU Q6H PRN DRY EYES Carvedilol 12.5 mg 03/14/20 22:00 03/21/20 12:40 Coreg - PO Not Given BID HUGO Digoxin 0.125 mg 03/15/20 10:00 03/21/20 12:40 Lanoxin - PO Not Given DAILY [facility] Docusate Sodium 100 mg 03/14/20 22:00 03/21/20 12:38 Colace - PO Not Given BID HUGO Famotidine 20 mg 03/14/20 22:00 03/21/20 12:40 Pepcid - PO Not Given BID [facility] Fentanyl 50 mcg 03/21/20 12:48 Sublimaze Injection - IVPUSH [id number] PRN PAIN-PACU ORDER X 4 DOSES ONLY Gabapentin 300 mg 03/14/20 14:00 03/21/20 06:43 Neurontin - PO 300 mg TID HUGO Administration Lactated Ringer's 1,000 mls @ 125 mls/hr 03/21/20 13:00 Lactated Ringers Solution IV ASDIR HUGO Insulin Aspart 1 vial 03/14/20 16:30 03/21/20 12:39 Novolog Vial Sliding Scale - SQ Not Given [facility] Protocol Insulin Detemir 16 units 03/18/20 22:00 03/21/20 12:38 Levemir Vial SQ Not Given BID [facility] Magnesium Oxide 400 mg 03/14/20 22:00 03/21/20 12:38 Mag-Ox - PO Not Given BID [facility] Multivitamins/Minerals/Vitamin C 1 tab 03/15/20 10:00 03/21/20 12:39 Tab-A-Vit - PO Not Given DAILY [facility] Nystatin 1 applic 03/19/20 22:00 03/20/20 22:24 Mycostatin Cream - TP 1 applic BID HUGO Administration Ondansetron HCl 4 mg 03/14/20 11:45 Zofran Injection IVPUSH Q6H PRN NAUSEA AND/OR VOMITING Ondansetron HCl 4 mg 03/21/20 12:48 Zofran Injection IVPUSH Q6H PRN NAUSEA AND/OR VOMITING Polyethylene Glycol 17 gm 03/15/20 10:00 03/21/20 12:38 Miralax (For Daily Use) - PO Not Given DAILY [facility] Promethazine HCl 12.5 mg 03/14/20 11:45 Phenergan Injection - IVPUSH Q6H PRN NAUSEA-FOR RESCUE AFTER 15 MIN Quetiapine Fumarate 50 mg 03/14/20 22:00 03/20/20 22:26 Seroquel - PO 50 mg HS HUGO Administration Senna 1 tab 03/15/20 10:45 03/21/20 12:39 Senna - PO Not Given BID [facility] Tamsulosin HCl 0.4 mg 03/15/20 08:30 03/21/20 12:38 Flomax - PO Not Given DAILY@0830 [facility] Valsartan 320 mg 03/15/20 10:00 03/21/20 12:40 Diovan - PO Not Given DAILY HUGO Zinc Sulfate 220 mg 03/15/20 10:00 03/21/20 12:38 Orazinc - PO Not Given DAILY [facility] ASSESSMENT/PLAN: 64 year old male with a significant past medical history of DM, schizophrenia, HTN, HLD, GERD, dementia, EtOH use disorder who had his right knee great toe amputated apx 1 month prior to admission, presents to the ED on 02/03/2020 with right 2nd digit gangrene 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 POD 7 Prosthetic Revision and repair of R femoral artery with vein patch, endarterectomy Holding antiplatelet and anticoagulation medications due to breakdown of graft; to resume per surgery recs Daptomycin induced Elevated CK Levels improving hold statin off Abx now no fever, no leukocytosis stable H&H wound vac to continue M/W/F as per surgical teams # BPH urology planning for TUVP Schizophrenia CAD CKD HFpEF T2DM HTN HLD DVT prophylaxis with SCD DNR/DNI Visit type - Emergency Visit Emergency Visit: Yes ED Registration Date: 02/03/20 Care time: The patient presented to the Emergency Department on the above date a nd was hospitalized for further evaluation of their emergent condition. - New Patient This patient is new to me today: Yes Date on this admission: 03/21/20 - Critical Care Critical Care patient: No - Discharge Referral Referred to [facility] Med P.C.: No
--- NOTE | 2020-03-21 14:52 | OP ---
Operative Note - Note: Operative Date: 03/21/20 Pre-Operative Diagnosis: bph with rec. retention Operation: turp/tuvp Findings: BILOBAR PROSTATE HYPERTROPHY WITH A GR. 3 BLADDER TRABECULATION Post-Operative Diagnosis: Same as Pre-op Surgeon: Mya Sandoval Anesthesia: General Specimens Removed: URINE, PROSTATE CHIPS Estimated Blood Loss (mls): 0 Drains & Tubes with Location: 24F 30CC 3-WAY HDZ Drains, Volume Out (mls): 0 Blood Volume Replaced (mls): 0 Fluid Volume Replaced (mls): 0
[2020-03-21] MEDS ORDERED: PROMETHAZINE HCL 25 MG/1 ML VIAL IVPUSH PRN (15:03)
[2020-03-21] MEDS ORDERED: ARTIFICIAL TEARS (POLYVINYL ALCOHOL) OPTH DROPS OU PRN (15:03)
[2020-03-21] MEDS: LACTATED RINGERS SOLUTION 1,000 ML IV SCH (17:41)
[2020-03-21] MEDS: NYSTATIN 100,000 UNIT/GM TOPICAL CREAM 15 GM TUBE TP SCH ×2 (17:43→22:42)
[2020-03-21] MEDS ORDERED: QUEtiapine FUMARATE 25 MG TABLET ONE (22:30)
[2020-03-21] MEDS: QUEtiapine FUMARATE 50 MG TABLET PO SCH (22:44)
[2020-03-22] MEDS: LACTATED RINGERS SOLUTION 1,000 ML IV SCH ×2 (06:11→16:10)
[2020-03-22] MEDS: GABAPENTIN 300 MG CAPSULE PO SCH ×3 (06:11→22:33)
[2020-03-22] MEDS: INSULIN SLIDING SCALE (NOVOLOG) 1 VIAL SQ SCH ×4 (06:11→22:36)
[2020-03-22 08:34] LABS: BASO % 0.4 % (0-2.0); EOS % 3.8 % (0-4.5); HEMATOCRIT 24.1 % (35.4-49); LYMPH % 11.8 % (8-40); MCH 28.5 pg (25.7-33.7); MCHC 33.3 g/dl (32.0-35.9); MEAN CELL VOLUME 85.5 fl (80-96); MEAN PLT VOLUME 7.7 fl (7.5-11.1); MONO % 6.4 % (3.8-10.2); NEUT % 77.6 % (42.8-82.8); PLATELET COUNT 287 K/MM3 (134-434); RBC 2.82 M/mm3 (4.00-5.60); RDW 15.1 % (11.9-15.9); WHITE BLOOD COUNT 7.7 K/mm3 (4.0-10.0)
--- NOTE | 2020-03-22 08:35 | OP ---
DATE OF OPERATION: 03/21/2020 PREOPERATIVE DIAGNOSIS: Recurrent urinary tract infection, obstructing prostate. POSTOPERATIVE DIAGNOSIS: Bipolar hypertrophy, lateral lobe kissing, and grade 3 trabeculation of bladder. OPERATIVE PROCEDURE: Cystourethroscopy, transurethral resection and transurethral vaporization of prostate. ANESTHESIA: General. DESCRIPTION OF PROCEDURE: Under above stated anesthesia, patient was prepped and draped in the usual sterile manner. He was placed in the dorsal lithotomy position. A 30-degree continuous flow scope was introduced. Anterior urethra was within normal limits. Prostatic urethra revealed bilobar hypertrophy of the prostate. There was lateral lobe kissing. The bladder was entered, and approximately 1800 mL of clear urine was drained; this was sent for both C&S as well as cytology. Inspection of the bladder revealed a grade 2-3 trabeculation throughout. No overt lesions or calculi were seen. Ureteral orifices were within normal limits with efflux of clear urine. Dome and lateral wall were clear of any lesions. The cystoscope was removed. A bipolar resectoscope was inserted. Resection of the prostate was commenced at the 6 o'clock position on the right lateral lobe. This was carried on up to the 12 o'clock position. This commenced at the bladder neck and ended at the level of the verumontanum. Same thing was done to the left lateral lobe. Hemostasis was secured with electrocoagulation. Prostate chips were evacuated with an [employer] evacuator. A bipolar button was then introduced and excess tissue was vaporized. Again, hemostasis was secured with electrocoagulation. No free tissue was seen. Therefore the scope was removed. A 24 [place] 3-way, 30 mL Rizvi catheter was inserted. This was connected to continuous bladder irrigation. The patient tolerated the procedure well. He returned to the recovery room in good condition. Faye [id number]
[2020-03-22 08:48] LABS: ALBUMIN 1.7 g/dl (3.4-5.0); BILIRUBIN,TOTAL 0.5 mg/dL (0.2-1); BLOOD UREA NITROGEN 20.2 mg/dL (7-18); CALCIUM 8.5 mg/dL (8.5-10.1); CREATININE 1.1 mg/dL (0.55-1.3); POTASSIUM 4.1 mmol/L (3.5-5.1); TOT PROT 6.2 g/dl (6.4-8.2)
[2020-03-22] MEDS: INSULIN (LEVEMIR) 100 UNITS/ML UNITS SQ SCH ×2 (09:07→22:35)
[2020-03-22] MEDS: DIGOXIN 0.125 MG TABLET (FP) PO SCH (09:08)
[2020-03-22] MEDS: FAMOTIDINE 20 MG TABLET PO SCH ×2 (09:08→22:31)
[2020-03-22] MEDS: MULTIVITAMINS (DAILY MVI) TABLET (FP) PO SCH (09:08)
[2020-03-22] MEDS: AMINO ACIDS/PROTEIN HYDROLYS 30 ML LIQUID.PKT PO SCH (09:08)
[2020-03-22] MEDS: CARVEDILOL 12.5 MG TABLET (FP) PO SCH ×2 (09:08→22:31)
[2020-03-22] MEDS: DOCUSATE SODIUM 100 MG CAPSULE (FP) PO SCH ×2 (09:08→22:31)
[2020-03-22] MEDS: VALSARTAN 160 MG TABLET PO SCH (09:09)
[2020-03-22] MEDS: SENNOSIDES 8.6MG TABLET (FP) PO SCH ×2 (09:09→22:31)
[2020-03-22] MEDS: MAGNESIUM OXIDE 400 MG TABLET (FP) PO SCH ×2 (09:09→22:32)
[2020-03-22] MEDS: TAMSULOSIN HCL 0.4 MG CAP PO SCH (09:09)
[2020-03-22] MEDS: ZINC SULFATE 220 MG CAPSULE (FP) PO SCH (09:09)
[2020-03-22] MEDS: POLYETHYLENE GLYCOL 3350 119 GM BTL PO SCH (09:10)
[2020-03-22] MEDS: NYSTATIN 100,000 UNIT/GM TOPICAL CREAM 15 GM TUBE TP SCH ×2 (09:19→22:32)
--- NOTE | 2020-03-22 10:53 | PROC ---
Procedure Note Procedure: Surgical A decision was made to utilize Negative Pressure Therapy (VAC) to assist in: expedite wound closure through promotion of granulation tissue formation. - Wound description Wound location: Other (Right groin) Length (cm): 4 Width (cm): 3 Depth (cm): 2 Wound area (sq cm): 13.50 Wound Description: Muscle exposed: Yes, Tendon exposed: No, Bone exposed: No, Undermining: No - Device VAC Selection: NPT - Procedure Area cleansed. Prepped/draped. Black foam tailored to fit just inside of wound borders to encourage wound contracture. An occlusive dressing applied. Suction disc placed in location so as not to be uncomfortable for the patient or cause any pressure point. Good seal as verified by complete foam collapse and no leak on unit monitor. Pressure set to 125 mmHg, continuous. No purulent drainage. Good granulation tissue present.
--- NOTE | 2020-03-22 11:36 | PN ---
Progress Note (short form) - Note Progress Note: S/p Right femoral artery to above knee popliteal artery bypass with PTFE. Angiogram of right lower extremity on 02/17, c/b infected graft, s/p right groin I&D for infected hematoma on 02/25, s/p removal of infected graft (fem portion) / VAC application 03/03, s/p r bka 03/[address] Pineda, c/b right femoral artery hemorrhage, s/p Resection of infected prosthetic graft and repair of right femoral artery with vein patch angioplasty. Endarterectomy femoral artery 03/[address] Martínez Vac changed today as pt was in OR/PACU majority of the day yesterday for TURP. Pt reports penile pain, denies any groin pain. No issues overnight. Vital Signs Temp 98.4 F 03/22/20 10:00 Pulse 94 H 03/22/20 10:00 Resp 20 03/22/20 10:00 BP 151/81 03/22/20 10:00 Pulse Ox 99 03/22/20 10:00 Intake & Output 03/21/20 03/21/20 03/22/20 11:59 23:59 11:59 Intake Total 0 1775 100 Output Total 6050 2000 Balance 0 -4275 -1900 Intake: IV 1275 Lactated Ringers Solution 375 1,000 ml @ 125 mls/hr IV ASDIR HUGO Rx#: [id number] Oral 0 500 100 Output: Urine 6000 2000 Rizvi 4500 2000 Estimated Blood Loss 50 Other: Voiding Method Indwelling Catheter Indwelling Catheter Indwelling Catheter # Unmeasured Voids Rizvi 1 Bowel Movement No No No # Bowel Movements 1 CBC, BMP 03/22/20 07:00 03/22/20 07:00 Gen: awake, alert, nad Resp: unlabored on Groin: R groin dressing removed, wound bed with granulation tissue present scant bleeding at proximal edge. Minimal fibrinous exudate at proximal wound edge, no purulent drainage no erythema. Skin in good condition. Ext: BKA stump intact with agnes in situ, no erythema or drainage, medial calf with agnes in place, no erythema or drainage. A/P: 64 y/o M w/ PMHx DM, Schizophrenia, HTN, HLD, GERD, Dementia, EtOH s/p R great toe amputation now with 2nd digit gangrene, S/p Right femoral artery to above knee popliteal artery bypass with PTFE. Angiogram of right lower extremity on 02/17, s/p right groin I&D for infected hematoma on 02/25, s/p removal of infected graft (fem portion) / VAC application 03/03, s/p r bka 03/[address] Pineda, c/b right femoral artery hemorrhage, s/p Resection of infected prosthetic graft and repair of right femoral artery with vein patch angioplasty. Endarterectomy femoral artery 03/[address] Martínez -continue to change wound vac 3 times weekly (T, , ) -Continue abx per ID -call with any questions/concerns -Pt should f/u with attending Dr Pineda in 1 week d/w attending Dr Pineda
[2020-03-22] MEDS ORDERED: INSULIN (NOVOLOG) ASPART 100 UNITS/ML 10ML VIAL ONE (11:37)
--- NOTE | 2020-03-22 12:43 | PN ---
Progress Note (short form) - Note Progress Note: cc: leg pain s: no chest pain, palps, dizziness, dyspnea Current Medications Generic Name Dose Route Start Last Admin Trade Name Freq PRN Reason Stop Dose Admin Acetaminophen 650 mg 03/21/20 15:03 Tylenol - PO Q4H PRN FEVER Amino Acids 30 ml 03/22/20 10:00 03/22/20 09:08 Prosource No Carb Liquid Pkt PO 30 ml DAILY HUGO Administration Artificial Tears 1 drop 03/21/20 15:03 Artificial Tears OU Q6H PRN DRY EYES Carvedilol 12.5 mg 03/21/20 22:00 03/22/20 09:08 Coreg - PO 12.5 mg BID HUGO Administration Digoxin 0.125 mg 03/22/20 10:00 03/22/20 09:08 Lanoxin - PO 0.125 mg DAILY HUGO Administration Docusate Sodium 100 mg 03/21/20 22:00 03/22/20 09:08 Colace - PO 100 mg BID HUGO Administration Famotidine 20 mg 03/21/20 22:00 03/22/20 09:08 Pepcid - PO 20 mg BID HUGO Administration Gabapentin 300 mg 03/21/20 22:00 03/22/20 06:11 Neurontin - PO 300 mg TID HUGO Administration Lactated Ringer's 1,000 mls @ 125 mls/hr 03/21/20 15:03 03/22/20 06:11 Lactated Ringers Solution IV 125 mls/hr ASDIR HUGO Administration Insulin Aspart 1 vial 03/21/20 16:30 03/22/20 11:45 Novolog Vial Sliding Scale - SQ 12 units ACHS HUGO Administration Protocol Insulin Detemir 16 units 03/21/20 22:00 03/22/20 09:07 Levemir Vial SQ 16 units BID HUGO Administration Magnesium Oxide 400 mg 03/21/20 22:00 03/22/20 09:09 Mag-Ox - PO 400 mg BID HUGO Administration Multivitamins/Minerals/Vitamin C 1 tab 03/22/20 10:00 03/22/20 09:08 Tab-A-Vit - PO 1 tab DAILY HUGO Administration Nystatin 1 applic 03/21/20 22:00 03/22/20 09:19 Mycostatin Cream - TP 1 applic BID HUGO Administration Polyethylene Glycol 17 gm 03/22/20 10:00 03/22/20 09:10 Miralax (For Daily Use) - PO 17 gm DAILY HUGO Administration Quetiapine Fumarate 50 mg 03/21/20 22:00 03/21/20 22:44 Seroquel - PO 50 mg HS HUGO Administration Senna 1 tab 03/21/20 22:00 03/22/20 09:09 Senna - PO 1 tab BID HUGO Administration Tamsulosin HCl 0.4 mg 03/22/20 08:30 03/22/20 09:09 Flomax - PO 0.4 mg DAILY@0830 HUGO Administration Valsartan 320 mg 03/22/20 10:00 03/22/20 09:09 Diovan - PO 320 mg DAILY HUGO Administration Zinc Sulfate 220 mg 03/22/20 10:00 03/22/20 09:09 Orazinc - PO 220 mg DAILY HUGO Administration Vital Signs Period Temp Pulse Resp BP Sys/Leahy Pulse Ox Last 24 Hr 98.1 F-99 F 72-102 10-20 104-151/60-87 95-100 Constitutional: Yes: Well Nourished, No Distress Eyes: No: Sclera Icterus HENT: No: Nasal Congestion Respiratory: Yes: CTA Bilaterally. No: Accessory Muscle Use, Rales, Wheezes Gastrointestinal: Yes: Normal Bowel Sounds. No: Distention, Hepatomegaly, Palpable Mass, Tenderness Cardiovascular: Yes: Regular Rate and Rhythm JVD: No Heart Sounds: Yes: S1, S2. No: Gallop Murmur: No: Systolic Murmur, Diastolic Murmur Edema: No Integumentary: No: Jaundice Neurological: Yes lethargic Psychiatric: No: Agitated Assessment/Plan echo 01/2020: normal LVEF, nl RV, nl valve function. CXR: ATX vs infiltrate R base, no effusions/congestion mibi 01/2020 mod sized area of inferolateral scar, no ischemia, EF 45% postop bleeding, PAD - s/p R fem-pop, BKA - 03/11 transferred to ICU and taken urgently to OR for bleeding - stable H/H after OR, received IVF, PRBCs with stable BP - manage per vascular CAD: - no angina sx's here - preop mibi shows inferolateral scar, no ischemia. mildly reduced EF. - continue statin, holding aspirin per vascular for wound breakdown - on digoxin for unclear indication, levels ok here, continue--outpt f/u with prior treating physician DM: -per hospitalist HTN: - cont current meds HPL: -cont statin urinary retention - s/p TURP - manage per urology
--- NOTE | 2020-03-22 14:43 | PN ---
Physical Exam: SUBJECTIVE: Patient seen and examined. awake and alert, eating lunch. in no acute distress. denies any pain. OBJECTIVE: Patient is a 64 year old male with a significant past medical history of DM, schizophrenia, HTN, HLD, GERD, dementia, EtOH use disorder who had his right knee great toe amputated apx 1 month prior to admission, presents to the ED on 02/03/2020 with right 2nd digit gangrene. At [facility] pt underwent RLE angiogram which revealed right SFA occlusion. He is being followed by vascular surgery and is s/p fem-pop bypass. Right groin found to have purulent drainage and found to be infected, wound vac placed. Patient is s/p right below knee amputation on 03/08/2020. On 03/11/2020 patient was a rapid response and code H (hemorrhage) when he was found to be profusely bleeding from wound vac site. He was sent to the ICU for closer monitoring. On 03/21/2020 patient underwent a TURP procedure and now on a CBI. ------ covid status: negative as per serology 02/02, 02/10/2020, 03/07/2020 Vital Signs Period Temp Pulse Resp BP Sys/Leahy Pulse Ox Last 24 Hr 98.1 F-99 F 72-102 10-20 104-151/60-87 95-100 GENERAL: The patient is awake, alert, in no acute distress. forgetful HEAD: Normal with no signs of trauma. EYES: PERRL, extraocular movements intact, sclera anicteric, conjunctiva clear. No ptosis. ENT: Ears normal, nares patent, oropharynx clear without exudates NECK: Trachea midline, full range of motion, supple. LUNGS: Breath sounds equal HEART: Regular rate and rhythm ABDOMEN: Soft, nontender, nondistended, normoactive bowel sounds. right groin wound attached to wound vac. EXTREMITIES: s/p right below knee amputation with immobilizer NEUROLOGICAL: Normal speech, gait not observed. PSYCH: Normal mood, normal affect Laboratory Results - last 24 hr 03/21/20 03/21/20 03/22/20 16:44 22:42 06:08 WBC RBC Hgb Hct MCV MCH MCHC RDW Plt Count MPV Absolute Neuts (auto) Neutrophils % Lymphocytes % Monocytes % Eosinophils % Basophils % Nucleated RBC % Sodium Potassium Chloride Carbon Dioxide Anion Gap BUN Creatinine Est GFR (CKD-EPI)AfAm Est GFR (CKD-EPI)NonAf POC Glucometer 181 265 109 Random Glucose Calcium Total Bilirubin AST ALT Alkaline Phosphatase Total Protein Albumin 03/22/20 03/22/20 03/22/20 07:00 07:00 11:44 WBC 7.7 RBC 2.82 L Hgb 8.0 L Hct 24.1 L MCV 85.5 MCH 28.5 MCHC 33.3 RDW 15.1 Plt Count 287 MPV 7.7 Absolute Neuts (auto) 5.9 Neutrophils % 77.6 Lymphocytes % 11.8 D Monocytes % 6.4 Eosinophils % 3.8 Basophils % 0.4 Nucleated RBC % 0 Sodium 140 Potassium 4.1 Chloride 106 Carbon Dioxide 28 Anion Gap 5 L BUN 20.2 H Creatinine 1.1 Est GFR (CKD-EPI)AfAm 82.95 Est GFR (CKD-EPI)NonAf 71.57 POC Glucometer 261 Random Glucose 152 H Calcium 8.5 Total Bilirubin 0.5 AST 19 ALT 16 Alkaline Phosphatase 68 Total Protein 6.2 L Albumin 1.7 L Active Medications Generic Name Dose Route Start Last Admin Trade Name Freq PRN Reason Stop Dose Admin Acetaminophen 650 mg 03/21/20 15:03 Tylenol - PO Q4H PRN FEVER Amino Acids 30 ml 03/22/20 10:00 03/22/20 09:08 Prosource No Carb Liquid Pkt PO 30 ml DAILY HUGO Administration Artificial Tears 1 drop 03/21/20 15:03 Artificial Tears OU Q6H PRN DRY EYES Carvedilol 12.5 mg 03/21/20 22:00 03/22/20 09:08 Coreg - PO 12.5 mg BID HUGO Administration Digoxin 0.125 mg 03/22/20 10:00 03/22/20 09:08 Lanoxin - PO 0.125 mg DAILY HUGO Administration Docusate Sodium 100 mg 03/21/20 22:00 03/22/20 09:08 Colace - PO 100 mg BID HUGO Administration Famotidine 20 mg 03/21/20 22:00 03/22/20 09:08 Pepcid - PO 20 mg BID HUGO Administration Gabapentin 300 mg 03/21/20 22:00 03/22/20 06:11 Neurontin - PO 300 mg TID HUGO Administration Lactated Ringer's 1,000 mls @ 125 mls/hr 03/21/20 15:03 03/22/20 06:11 Lactated Ringers Solution IV 125 mls/hr ASDIR HUGO Administration Insulin Aspart 1 vial 03/21/20 16:30 03/22/20 11:45 Novolog Vial Sliding Scale - SQ 12 units ACHS HUGO Administration Protocol Insulin Detemir 16 units 03/21/20 22:00 03/22/20 09:07 Levemir Vial SQ 16 units BID HUGO Administration Magnesium Oxide 400 mg 03/21/20 22:00 03/22/20 09:09 Mag-Ox - PO 400 mg BID HUGO Administration Multivitamins/Minerals/Vitamin C 1 tab 03/22/20 10:00 03/22/20 09:08 Tab-A-Vit - PO 1 tab DAILY HUGO Administration Nystatin 1 applic 03/21/20 22:00 03/22/20 09:19 Mycostatin Cream - TP 1 applic BID HUGO Administration Polyethylene Glycol 17 gm 03/22/20 10:00 03/22/20 09:10 Miralax (For Daily Use) - PO 17 gm DAILY HUGO Administration Quetiapine Fumarate 50 mg 03/21/20 22:00 03/21/20 22:44 Seroquel - PO 50 mg HS HUGO Administration Senna 1 tab 03/21/20 22:00 03/22/20 09:09 Senna - PO 1 tab BID HUGO Administration Tamsulosin HCl 0.4 mg 03/22/20 08:30 03/22/20 09:09 Flomax - PO 0.4 mg DAILY@0830 HUGO Administration Valsartan 320 mg 03/22/20 10:00 03/22/20 09:09 Diovan - PO 320 mg DAILY HUGO Administration Zinc Sulfate 220 mg 03/22/20 10:00 03/22/20 09:09 Orazinc - PO 220 mg DAILY HUGO Administration ASSESSMENT/PLAN: Problem List - Problems (1) S/P TURP Assessment/Plan: patient is s/p TURP procedure with Dr. Sandoval. On [address] liang with clear yellow urine. Code(s): Z90.79 - ACQUIRED ABSENCE OF OTHER GENITAL ORGAN(S) (2) Fever Assessment/Plan: resolved Code(s): R50.9 - FEVER, UNSPECIFIED (3) Diabetic foot infection Assessment/Plan: patient is s/p below right knee amputation. antibiotics completed Code(s): E11.628 - TYPE 2 DIABETES MELLITUS WITH OTHER SKIN COMPLICATIONS; L08.9 - LOCAL INFECTION OF THE SKIN AND SUBCUTANEOUS TISSUE, UNSP (4) Anemia Assessment/Plan: Anemia of chronic disease no signs of bleeding s/p 1 unit of prbc on 02/24 monitor CBC daily Code(s): D64.9 - ANEMIA, UNSPECIFIED (5) CKD (chronic kidney disease) Assessment/Plan: monitor kidney function trend intake/output and electrolytes Code(s): N18.9 - CHRONIC KIDNEY DISEASE, UNSPECIFIED (6) Congestive heart failure Assessment/Plan: Patient has normal ejection fraction, continue coreg, and digoxin, Stress test completed on 02/09/2020 no signs of volume overload Code(s): I50.9 - HEART FAILURE, UNSPECIFIED Qualifiers: Heart failure type: unspecified (7) Hypertension Assessment/Plan: labile BP currently on coreq 12.5mg bid, digoxin 0.125mg daily Code(s): I10 - ESSENTIAL (PRIMARY) HYPERTENSION (8) Uncontrolled type 2 diabetes mellitus Assessment/Plan: BGMs improved, goal is to maintain fasting bgms<180 on levemir Code(s): E11.65 - TYPE 2 DIABETES MELLITUS WITH HYPERGLYCEMIA (9) DVT prophylaxis Assessment/Plan: SCDs. heparin d/c after patient had right groin hemorrhage Code(s): Z29.9 - ENCOUNTER FOR PROPHYLACTIC MEASURES, UNSPECIFIED Visit type - Emergency Visit Emergency Visit: Yes ED Registration Date: 02/03/20 Care time: The patient presented to the Emergency Department on the above date and was hospitalized for further evaluation of their emergent condition. - New Patient This patient is new to me today: No - Critical Care Critical Care patient: No - Discharge Referral Referred to [facility] Med P.C.: No
[2020-03-22] MEDS: ACETAMINOPHEN 325 MG TABLET (FP) PO PRN (14:44)
[2020-03-22] MEDS ORDERED: QUEtiapine FUMARATE 25 MG TABLET ONE (21:17)
[2020-03-22] MEDS ORDERED: PT OWN MED DRAWER 7, Y5N ONE (22:27)
[2020-03-22] MEDS: QUEtiapine FUMARATE 50 MG TABLET PO SCH (22:31)
[2020-03-23] MEDS: LACTATED RINGERS SOLUTION 1,000 ML IV SCH ×2 (01:11→11:57)
[2020-03-23] MEDS: INSULIN SLIDING SCALE (NOVOLOG) 1 VIAL SQ SCH ×4 (06:12→21:35)
[2020-03-23] MEDS: GABAPENTIN 300 MG CAPSULE PO SCH ×3 (06:13→21:34)
[2020-03-23] MEDS: FAMOTIDINE 20 MG TABLET PO SCH ×2 (10:12→21:34)
[2020-03-23] MEDS: TAMSULOSIN HCL 0.4 MG CAP PO SCH (10:13)
[2020-03-23] MEDS: CARVEDILOL 12.5 MG TABLET (FP) PO SCH ×2 (10:13→21:34)
[2020-03-23] MEDS: SENNOSIDES 8.6MG TABLET (FP) PO SCH ×2 (10:13→21:33)
[2020-03-23] MEDS: DOCUSATE SODIUM 100 MG CAPSULE (FP) PO SCH ×2 (10:13→21:34)
[2020-03-23] MEDS: INSULIN (LEVEMIR) 100 UNITS/ML UNITS SQ SCH ×2 (10:14→21:35)
[2020-03-23] MEDS: VALSARTAN 160 MG TABLET PO SCH (10:14)
[2020-03-23] MEDS: DIGOXIN 0.125 MG TABLET (FP) PO SCH (10:14)
[2020-03-23] MEDS: NYSTATIN 100,000 UNIT/GM TOPICAL CREAM 15 GM TUBE TP SCH ×2 (10:15→21:34)
[2020-03-23] MEDS: ZINC SULFATE 220 MG CAPSULE (FP) PO SCH (10:15)
[2020-03-23] MEDS: MAGNESIUM OXIDE 400 MG TABLET (FP) PO SCH ×2 (10:15→21:33)
[2020-03-23] MEDS: POLYETHYLENE GLYCOL 3350 119 GM BTL PO SCH (10:15)
[2020-03-23] MEDS: MULTIVITAMINS (DAILY MVI) TABLET (FP) PO SCH (10:16)
[2020-03-23] MEDS: AMINO ACIDS/PROTEIN HYDROLYS 30 ML LIQUID.PKT PO SCH (10:16)
[2020-03-23 11:15] LABS: BASO % 0.5 % (0-2.0); EOS % 4.4 % (0-4.5); HEMATOCRIT 25.5 % (35.4-49); HEMOGLOBIN 8.4 GM/dL (11.7-16.9); LYMPH % 13.6 % (8-40); MCH 28.2 pg (25.7-33.7); MCHC 32.9 g/dl (32.0-35.9); MEAN CELL VOLUME 85.6 fl (80-96); MEAN PLT VOLUME 7.3 fl (7.5-11.1); MONO % 8.5 % (3.8-10.2); PLATELET COUNT 341 K/MM3 (134-434); RBC 2.98 M/mm3 (4.00-5.60)
[2020-03-23] MEDS ORDERED: INSULIN (NOVOLOG) ASPART 100 UNITS/ML 10ML VIAL ONE (11:18)
[2020-03-23 11:43] LABS: ALBUMIN 1.8 g/dl (3.4-5.0); BILIRUBIN,TOTAL 0.5 mg/dL (0.2-1); BLOOD UREA NITROGEN 12.5 mg/dL (7-18); CALCIUM 8.9 mg/dL (8.5-10.1); CREATININE 0.9 mg/dL (0.55-1.3); MAGNESIUM 1.8 mg/dL (1.8-2.4); POTASSIUM 3.7 mmol/L (3.5-5.1); TOT PROT 6.4 g/dl (6.4-8.2)
--- NOTE | 2020-03-23 11:54 | PN ---
Progress Note (short form) - Note Progress Note: cc: leg pain s: no chest pain, palps, dizziness, dyspnea Current Medications Generic Name Dose Route Start Last Admin Trade Name Freq PRN Reason Stop Dose Admin Acetaminophen 650 mg 03/21/20 15:03 03/22/20 14:44 Tylenol - PO 650 mg Q4H PRN Administration FEVER Amino Acids 30 ml 03/22/20 10:00 03/23/20 10:16 Prosource No Carb Liquid Pkt PO 30 ml DAILY HUGO Administration Artificial Tears 1 drop 03/21/20 15:03 Artificial Tears OU Q6H PRN DRY EYES Carvedilol 12.5 mg 03/21/20 22:00 03/23/20 10:13 Coreg - PO 12.5 mg BID HUGO Administration Digoxin 0.125 mg 03/22/20 10:00 03/23/20 10:14 Lanoxin - PO 0.125 mg DAILY HUGO Administration Docusate Sodium 100 mg 03/21/20 22:00 03/23/20 10:13 Colace - PO 100 mg BID HUGO Administration Famotidine 20 mg 03/21/20 22:00 03/23/20 10:12 Pepcid - PO 20 mg BID HUGO Administration Gabapentin 300 mg 03/21/20 22:00 03/23/20 06:13 Neurontin - PO 300 mg TID HUGO Administration Lactated Ringer's 1,000 mls @ 125 mls/hr 03/21/20 15:03 03/23/20 01:11 Lactated Ringers Solution IV 125 mls/hr ASDIR HUGO Administration Insulin Aspart 1 vial 03/21/20 16:30 03/23/20 06:12 Novolog Vial Sliding Scale - SQ 8 units ACHS HUGO Administration Protocol Insulin Detemir 16 units 03/21/20 22:00 03/23/20 10:14 Levemir Vial SQ 16 units BID HUGO Administration Magnesium Oxide 400 mg 03/21/20 22:00 03/23/20 10:15 Mag-Ox - PO 400 mg BID HUGO Administration Multivitamins/Minerals/Vitamin C 1 tab 03/22/20 10:00 03/23/20 10:16 Tab-A-Vit - PO 1 tab DAILY HUGO Administration Nystatin 1 applic 03/21/20 22:00 03/23/20 10:15 Mycostatin Cream - TP 1 applic BID HUGO Administration Polyethylene Glycol 17 gm 03/22/20 10:00 03/23/20 10:15 Miralax (For Daily Use) - PO 17 gm DAILY HUGO Administration Quetiapine Fumarate 50 mg 03/21/20 22:00 03/22/20 22:31 Seroquel - PO 50 mg HS HUGO Administration Senna 1 tab 03/21/20 22:00 03/23/20 10:13 Senna - PO 1 tab BID HUGO Administration Tamsulosin HCl 0.4 mg 03/22/20 08:30 03/23/20 10:13 Flomax - PO 0.4 mg DAILY@0830 HUGO Administration Valsartan 320 mg 03/22/20 10:00 03/23/20 10:14 Diovan - PO 320 mg DAILY HUGO Administration Zinc Sulfate 220 mg 03/22/20 10:00 03/23/20 10:15 Orazinc - PO 220 mg DAILY HUGO Administration Vital Signs Period Temp Pulse Resp BP Sys/Leahy Pulse Ox Last 24 Hr 97.9 F-99.2 F 86-96 18-20 111-156/68-80 96-100 Constitutional: Yes: Well Nourished, No Distress Eyes: No: Sclera Icterus HENT: No: Nasal Congestion Respiratory: Yes: CTA Bilaterally. No: Accessory Muscle Use, Rales, Wheezes Gastrointestinal: Yes: Normal Bowel Sounds. No: Distention, Hepatomegaly, Palpable Mass, Tenderness Cardiovascular: Yes: Regular Rate and Rhythm JVD: No Heart Sounds: Yes: S1, S2. No: Gallop Murmur: No: Systolic Murmur, Diastolic Murmur Edema: No Integumentary: No: Jaundice Neurological: Yes lethargic Psychiatric: No: Agitated Assessment/Plan echo 01/2020: normal LVEF, nl RV, nl valve function. CXR: ATX vs infiltrate R base, no effusions/congestion mibi 01/2020 mod sized area of inferolateral scar, no ischemia, EF 45% postop bleeding, PAD - s/p R fem-pop, BKA - 03/11 transferred to ICU and taken urgently to OR for bleeding - stable H/H after OR, received IVF, PRBCs with stable BP - manage per vascular CAD: - no angina sx's here - preop mibi shows inferolateral scar, no ischemia. mildly reduced EF. - continue statin, holding aspirin per vascular for wound breakdown - on digoxin for unclear indication, levels ok here, continue--outpt f/u with prior treating physician DM: -per hospitalist HTN: - cont current meds HPL: -cont statin urinary retention - s/p TURP - manage per urology
--- NOTE | 2020-03-23 13:02 | PN ---
Physical Exam: SUBJECTIVE: Patient seen and examined at the bedside. sitting up, about to eat breakfast. aides at the bedside. denies any pain or discomfort. OBJECTIVE: Patient is a 64 year old male with a significant past medical history of DM, schizophrenia, HTN, HLD, GERD, dementia, EtOH use disorder who had his right knee great toe amputated apx 1 month prior to admission, presents to the ED on 02/03/2020 with right 2nd digit gangrene. At [facility] pt underwent RLE angiogram which revealed right SFA occlusion. He is being followed by vascular surgery and is s/p fem-pop bypass. Right groin found to have purulent drainage and found to be infected, wound vac placed. Patient is s/p right below knee amputation on 03/08/2020. On 03/11/2020 patient was a rapid response and code H (hemorrhage) when he was found to be profusely bleeding from wound vac site. He was sent to the ICU for closer monitoring. On 03/21/2020 patient underwent a TURP procedure and now on a CBI. ------ covid status: negative as per serology 02/02, 02/10/2020, 03/07/2020 Period Temp Pulse Resp BP Sys/Leahy Pulse Ox Last 24 Hr 97.9 F-99.2 F 86-96 18-20 111-156/68-80 96-100 GENERAL: The patient is awake, alert, in no acute distress. forgetful HEAD: Normal with no signs of trauma. EYES: PERRL, extraocular movements intact, sclera anicteric, conjunctiva clear. No ptosis. ENT: Ears normal, nares patent, oropharynx clear without exudates NECK: Trachea midline, full range of motion, supple. LUNGS: Breath sounds equal HEART: Regular rate and rhythm ABDOMEN: Soft, nontender, nondistended, normoactive bowel sounds. right groin wound attached to wound vac. EXTREMITIES: s/p right below knee amputation with immobilizer NEUROLOGICAL: Normal speech, gait not observed. PSYCH: Normal mood, normal affect Laboratory Results - last 24 hr 03/22/20 03/22/20 03/23/20 16:06 22:22 06:10 WBC RBC Hgb Hct MCV MCH MCHC RDW Plt Count MPV Absolute Neuts (auto) Neutrophils % Lymphocytes % Monocytes % Eosinophils % Basophils % Nucleated RBC % Sodium Potassium Chloride Carbon Dioxide Anion Gap BUN Creatinine Est GFR (CKD-EPI)AfAm Est GFR (CKD-EPI)NonAf POC Glucometer 174 299 174 Random Glucose Calcium Magnesium Total Bilirubin AST ALT Alkaline Phosphatase Total Protein Albumin 03/23/20 03/23/20 03/23/20 10:40 10:40 11:52 WBC 7.0 RBC 2.98 L Hgb 8.4 L Hct 25.5 L MCV 85.6 MCH 28.2 MCHC 32.9 RDW 15.0 Plt Count 341 MPV 7.3 L Absolute Neuts (auto) 5.1 Neutrophils % 73.0 Lymphocytes % 13.6 Monocytes % 8.5 Eosinophils % 4.4 Basophils % 0.5 Nucleated RBC % 0 Sodium 142 Potassium 3.7 Chloride 108 H Carbon Dioxide 31 Anion Gap 3 L BUN 12.5 Creatinine 0.9 Est GFR (CKD-EPI)AfAm 105.72 Est GFR (CKD-EPI)NonAf 91.22 POC Glucometer 174 Random Glucose 67 L Calcium 8.9 Magnesium 1.8 Total Bilirubin 0.5 AST 15 ALT 13 Alkaline Phosphatase 71 Total Protein 6.4 Albumin 1.8 L Active Medications Generic Name Dose Route Start Last Admin Trade Name Freq PRN Reason Stop Dose Admin Acetaminophen 650 mg 03/21/20 15:03 03/22/20 14:44 Tylenol - PO 650 mg Q4H PRN Administration FEVER Amino Acids 30 ml 03/22/20 10:00 03/23/20 10:16 Prosource No Carb Liquid Pkt PO 30 ml DAILY HUGO Administration Artificial Tears 1 drop 03/21/20 15:03 Artificial Tears OU Q6H PRN DRY EYES Carvedilol 12.5 mg 03/21/20 22:00 03/23/20 10:13 Coreg - PO 12.5 mg BID HUGO Administration Digoxin 0.125 mg 03/22/20 10:00 03/23/20 10:14 Lanoxin - PO 0.125 mg DAILY HUGO Administration Docusate Sodium 100 mg 03/21/20 22:00 03/23/20 10:13 Colace - PO 100 mg BID HUGO Administration Famotidine 20 mg 03/21/20 22:00 03/23/20 10:12 Pepcid - PO 20 mg BID HUGO Administration Gabapentin 300 mg 03/21/20 22:00 03/23/20 06:13 Neurontin - PO 300 mg TID HUGO Administration Lactated Ringer's 1,000 mls @ 125 mls/hr 03/21/20 15:03 03/23/20 11:57 Lactated Ringers Solution IV 125 mls/hr ASDIR HUGO Administration Insulin Aspart 1 vial 03/21/20 16:30 03/23/20 11:56 Novolog Vial Sliding Scale - SQ 8 units ACHS HUGO Administration Protocol Insulin Detemir 16 units 03/21/20 22:00 03/23/20 10:14 Levemir Vial SQ 16 units BID HUGO Administration Magnesium Oxide 400 mg 03/21/20 22:00 03/23/20 10:15 Mag-Ox - PO 400 mg BID HUGO Administration Multivitamins/Minerals/Vitamin C 1 tab 03/22/20 10:00 03/23/20 10:16 Tab-A-Vit - PO 1 tab DAILY HUGO Administration Nystatin 1 applic 03/21/20 22:00 03/23/20 10:15 Mycostatin Cream - TP 1 applic BID HUGO Administration Polyethylene Glycol 17 gm 03/22/20 10:00 03/23/20 10:15 Miralax (For Daily Use) - PO 17 gm DAILY HUGO Administration Quetiapine Fumarate 50 mg 03/21/20 22:00 03/22/20 22:31 Seroquel - PO 50 mg HS HUGO Administration Senna 1 tab 03/21/20 22:00 03/23/20 10:13 Senna - PO 1 tab BID HUGO Administration Tamsulosin HCl 0.4 mg 03/22/20 08:30 03/23/20 10:13 Flomax - PO 0.4 mg DAILY@0830 HUGO Administration Valsartan 320 mg 03/22/20 10:00 03/23/20 10:14 Diovan - PO 320 mg DAILY HUGO Administration Zinc Sulfate 220 mg 03/22/20 10:00 03/23/20 10:15 Orazinc - PO 220 mg DAILY HUGO Administration ASSESSMENT/PLAN: Problem List - Problems (1) S/P TURP Assessment/Plan: patient is s/p TURP procedure with Dr. Sandoval. On [address] liang with clear yellow urine. Code(s): Z90.79 - ACQUIRED ABSENCE OF OTHER GENITAL ORGAN(S) (2) Fever Assessment/Plan: resolved Code(s): R50.9 - FEVER, UNSPECIFIED (3) Diabetic foot infection Assessment/Plan: patient is s/p below right knee amputation. antibiotics completed Code(s): E11.628 - TYPE 2 DIABETES MELLITUS WITH OTHER SKIN COMPLICATIONS; L08.9 - LOCAL INFECTION OF THE SKIN AND SUBCUTANEOUS TISSUE, UNSP (4) Anemia Assessment/Plan: Anemia of chronic disease no signs of bleeding s/p 1 unit of prbc on 02/24 monitor CBC daily Code(s): D64.9 - ANEMIA, UNSPECIFIED (5) CKD (chronic kidney disease) Assessment/Plan: monitor kidney function trend intake/output and electrolytes Code(s): N18.9 - CHRONIC KIDNEY DISEASE, UNSPECIFIED (6) Congestive heart failure Assessment/Plan: Patient has normal ejection fraction, continue coreg, and digoxin, Stress test completed on 02/09/2020 no signs of volume overload Code(s): I50.9 - HEART FAILURE, UNSPECIFIED Qualifiers: Heart failure type: unspecified (7) Hypertension Assessment/Plan: controlled on coreq 12.5mg bid, digoxin 0.125mg daily Code(s): I10 - ESSENTIAL (PRIMARY) HYPERTENSION (8) Uncontrolled type 2 diabetes mellitus Assessment/Plan: BGMs improved, goal is to maintain fasting bgms<180 on levemir Code(s): E11.65 - TYPE 2 DIABETES MELLITUS WITH HYPERGLYCEMIA (9) DVT prophylaxis Assessment/Plan: SCDs. heparin d/c after patient had right groin hemorrhage Code(s): Z29.9 - ENCOUNTER FOR PROPHYLACTIC MEASURES, UNSPECIFIED Visit type - Emergency Visit Emergency Visit: Yes ED Registration Date: 02/03/20 Care time: The patient presented to the Emergency Department on the above date and was hospitalized for further evaluation of their emergent condition. - New Patient This patient is new to me today: No - Critical Care Critical Care patient: No - Discharge Referral Referred to [facility] Med P.C.: No
--- NOTE | 2020-03-23 17:46 | PATH ---
Surgical Pathology Report Patient Name: OZZIE UMANZOR [facility]. Rec. #: [id number] /Age/Gender: 1955 (Age: 64) / M Account: [id number] Location: [address] [place] [address]/[facility] Taken: 03/21/2020 Received: 03/22/2020 Reported: 03/23/2020 Physicians: Faye Jenkins M.D. Specimen(s) Received PROSTATE CHIPS Clinical History Necrotizing cellulitis gangrene Final Diagnosis PROSTATE CHIPS, TRANSURETHRAL RESECTION OF THE PROSTATE: BENIGN PROSTATIC TISSUE WITH PREDOMINANTLY STROMAL HYPERPLASIA. ADJACENT UROTHELIAL MUCOSA WITH MARKED ACUTE AND CHRONIC INFLAMMATION. Electronically Signed Joellen Segura M.D. Gross Description Received in formalin labeled "prostate chips," is a 2 g, 2.5 x 2.0 x 0.4 cm aggregate of albarran, firm to rubbery tissue fragments, consistent with prostate chips. The formalin is filtered and the specimen is entirely submitted in 2 cassettes. /03/22/2020 saudi/03/22/2020
--- NOTE | 2020-03-23 18:31 | PATH ---
Cytology Non-Gynecological Report Patient Name: OZZIE UMANZOR Med. Rec. #: [id number] /Age/Gender: 1955 (Age: 64) / M Account: [id number] Location: [address] [place] [address]/[facility] Taken: 03/21/2020 Received: 03/22/2020 Reported: 03/23/2020 Physicians: Ramin Levine M.D. Specimen(s) Received URINE VOIDED Clinical History Urine for cytology Final Diagnosis URINE FOR CYTOLOGY: SATISFACTORY FOR EVALUATION. NEGATIVE FOR HIGH GRADE UROTHELIAL CARCINOMA. SCATTERED UROTHELIAL CELLS, NEUTROPHILS, AND RED BLOOD CELLS PRESENT. Comment: See concurrent specimen ([id number]). Electronically Signed Sima Rico M.D. Gross Description Approximately 35 cc of yellow fluid received fresh. One cytofunnel prepared and Pap stained.
[2020-03-23] MEDS ORDERED: QUEtiapine FUMARATE 25 MG TABLET ONE (21:25)
[2020-03-23] MEDS: QUEtiapine FUMARATE 50 MG TABLET PO SCH (21:35)
[2020-03-24] MEDS: INSULIN SLIDING SCALE (NOVOLOG) 1 VIAL SQ SCH ×4 (06:21→21:45)
[2020-03-24] MEDS: GABAPENTIN 300 MG CAPSULE PO SCH ×3 (06:21→21:29)
[2020-03-24 08:40] LABS: BASO % 0.2 % (0-2.0); EOS % 2.4 % (0-4.5); HEMATOCRIT 25.1 % (35.4-49); HEMOGLOBIN 8.5 GM/dL (11.7-16.9); LYMPH % 8.7 % (8-40); MCH 29.1 pg (25.7-33.7); MCHC 33.7 g/dl (32.0-35.9); MEAN CELL VOLUME 86.4 fl (80-96); MEAN PLT VOLUME 7.8 fl (7.5-11.1); MONO % 4.9 % (3.8-10.2); NEUT % 83.8 % (42.8-82.8); PLATELET COUNT 292 K/MM3 (134-434); RBC 2.91 M/mm3 (4.00-5.60); WHITE BLOOD COUNT 8.1 K/mm3 (4.0-10.0)
[2020-03-24 09:11] LABS: ALBUMIN 1.8 g/dl (3.4-5.0); BILIRUBIN,TOTAL 0.2 mg/dL (0.2-1); BLOOD UREA NITROGEN 12.1 mg/dL (7-18); CALCIUM 9.1 mg/dL (8.5-10.1); CREATININE 0.9 mg/dL (0.55-1.3); MAGNESIUM 1.9 mg/dL (1.8-2.4); POTASSIUM 3.9 mmol/L (3.5-5.1); TOT PROT 6.4 g/dl (6.4-8.2)
[2020-03-24] MEDS: CARVEDILOL 12.5 MG TABLET (FP) PO SCH ×2 (09:55→21:28)
[2020-03-24] MEDS: DOCUSATE SODIUM 100 MG CAPSULE (FP) PO SCH ×2 (09:55→21:28)
[2020-03-24] MEDS: ZINC SULFATE 220 MG CAPSULE (FP) PO SCH (09:55)
[2020-03-24] MEDS: AMINO ACIDS/PROTEIN HYDROLYS 30 ML LIQUID.PKT PO SCH (09:55)
[2020-03-24] MEDS: TAMSULOSIN HCL 0.4 MG CAP PO SCH (09:55)
[2020-03-24] MEDS: SENNOSIDES 8.6MG TABLET (FP) PO SCH ×2 (09:56→21:28)
[2020-03-24] MEDS: VALSARTAN 160 MG TABLET PO SCH (09:56)
[2020-03-24] MEDS: MULTIVITAMINS (DAILY MVI) TABLET (FP) PO SCH (09:56)
[2020-03-24] MEDS: DIGOXIN 0.125 MG TABLET (FP) PO SCH (09:56)
[2020-03-24] MEDS: FAMOTIDINE 20 MG TABLET PO SCH ×2 (09:56→21:28)
[2020-03-24] MEDS: INSULIN (LEVEMIR) 100 UNITS/ML UNITS SQ SCH ×2 (09:57→21:28)
[2020-03-24] MEDS: MAGNESIUM OXIDE 400 MG TABLET (FP) PO SCH ×2 (09:57→21:45)
--- NOTE | 2020-03-24 11:56 | PN ---
Progress Note (short form) - Note Progress Note: s:lethargic Current Medications Generic Name Dose Route Start Last Admin Trade Name Freq PRN Reason Stop Dose Admin Acetaminophen 650 mg 03/21/20 15:03 03/22/20 14:44 Tylenol - PO 650 mg Q4H PRN Administration FEVER Amino Acids 30 ml 03/22/20 10:00 03/24/20 09:55 Prosource No Carb Liquid Pkt PO 30 ml DAILY HUGO Administration Artificial Tears 1 drop 03/21/20 15:03 Artificial Tears OU Q6H PRN DRY EYES Carvedilol 12.5 mg 03/21/20 22:00 03/24/20 09:55 Coreg - PO 12.5 mg BID HUGO Administration Digoxin 0.125 mg 03/22/20 10:00 03/24/20 09:56 Lanoxin - PO 0.125 mg DAILY HUGO Administration Docusate Sodium 100 mg 03/21/20 22:00 03/24/20 09:55 Colace - PO 100 mg BID HUGO Administration Famotidine 20 mg 03/21/20 22:00 03/24/20 09:56 Pepcid - PO 20 mg BID HUGO Administration Gabapentin 300 mg 03/21/20 22:00 03/24/20 06:21 Neurontin - PO 300 mg TID HUGO Administration Insulin Aspart 1 vial 03/21/20 16:30 03/24/20 11:40 Novolog Vial Sliding Scale - SQ 14 units ACHS HUGO Administration Protocol Insulin Detemir 16 units 03/21/20 22:00 03/24/20 09:57 Levemir Vial SQ 16 units BID HUGO Administration Magnesium Oxide 400 mg 03/21/20 22:00 03/24/20 09:57 Mag-Ox - PO 400 mg BID HUGO Administration Multivitamins/Minerals/Vitamin C 1 tab 03/22/20 10:00 03/24/20 09:56 Tab-A-Vit - PO 1 tab DAILY HUGO Administration Nystatin 1 applic 03/21/20 22:00 03/23/20 21:34 Mycostatin Cream - TP 1 applic BID HUGO Administration Polyethylene Glycol 17 gm 03/22/20 10:00 03/23/20 10:15 Miralax (For Daily Use) - PO 17 gm DAILY HUGO Administration Quetiapine Fumarate 50 mg 03/21/20 22:00 03/23/20 21:35 Seroquel - PO 50 mg HS HUGO Administration Senna 1 tab 03/21/20 22:00 03/24/20 09:56 Senna - PO 1 tab BID HUGO Administration Tamsulosin HCl 0.4 mg 03/22/20 08:30 03/24/20 09:55 Flomax - PO 0.4 mg DAILY@0830 HUGO Administration Valsartan 320 mg 03/22/20 10:00 03/24/20 09:56 Diovan - PO 320 mg DAILY HUGO Administration Zinc Sulfate 220 mg 03/22/20 10:00 03/24/20 09:55 Orazinc - PO 220 mg DAILY HUGO Administration Vital Signs Period Temp Pulse Resp BP Sys/Leahy Pulse Ox Last 24 Hr 97.7 F-99.0 F 72-92 16-18 111-156/64-82 97-100 Constitutional: Yes: Well Nourished, No Distress Eyes: No: Sclera Icterus HENT: No: Nasal Congestion Respiratory: Yes: CTA Bilaterally. No: Accessory Muscle Use, Rales, Wheezes Gastrointestinal: Yes: Normal Bowel Sounds. No: Distention, Hepatomegaly, Palpable Mass, Tenderness Cardiovascular: Yes: Regular Rate and Rhythm JVD: No Heart Sounds: Yes: S1, S2. No: Gallop Murmur: No: Systolic Murmur, Diastolic Murmur Edema: No Integumentary: No: Jaundice Neurological: Yes lethargic Psychiatric: No: Agitated CBC, BMP 03/24/20 07:48 03/24/20 07:48 Assessment/Plan echo 01/2020: normal LVEF, nl RV, nl valve function. CXR: ATX vs infiltrate R base, no effusions/congestion mibi 01/2020 mod sized area of inferolateral scar, no ischemia, EF 45% postop bleeding, PAD - s/p R fem-pop, BKA - 03/11 transferred to ICU and taken urgently to OR for bleeding - stable H/H after OR, received IVF, PRBCs with stable BP - manage per vascular -now s/p TURP, following CAD: - no angina sx's here - preop mibi shows inferolateral scar, no ischemia. mildly reduced EF. - continue statin, aspirin - on digoxin for unclear indication, levels ok here, continue--outpt f/u with prior treating physician DM: -per hospitalist HTN: - cont current meds HPL: -cont statin
[2020-03-24] MEDS: NYSTATIN 100,000 UNIT/GM TOPICAL CREAM 15 GM TUBE TP SCH ×2 (14:10→21:29)
[2020-03-24] MEDS: POLYETHYLENE GLYCOL 3350 119 GM BTL PO SCH (14:28)
--- NOTE | 2020-03-24 15:01 | PN ---
Physical Exam: SUBJECTIVE: Patient seen and examined. he tells me his name, his brothers name and then talks about other things that are not related such as a distant relative. he is able to be re oriented. OBJECTIVE: Patient is a 64 year old male with a significant past medical history of DM, schizophrenia, HTN, HLD, GERD, dementia, EtOH use disorder who had his right knee great toe amputated apx 1 month prior to admission, presents to the ED on 02/03/2020 with right 2nd digit gangrene. At [facility] pt underwent RLE angiogram which revealed right SFA occlusion. He is being followed by vascular surgery and is s/p fem-pop bypass. Right groin found to have purulent drainage and found to be infected, wound vac placed. Patient is s/p right below knee amputation on 03/08/2020. On 03/11/2020 patient was a rapid response and code H (hemorrhage) when he was found to be profusely bleeding from wound vac site. He was sent to the ICU for closer monitoring. On 03/21/2020 patient underwent a TURP procedure and completed CBI. ------ covid status: negative as per serology 02/02, 02/10/2020, 03/07/2020 Vital Signs Period Temp Pulse Resp BP Sys/Leahy Pulse Ox Last 24 Hr 97.7 F-98.3 F 72-91 16-18 111-156/64-82 97-100 GENERAL: The patient is awake, alert, in no acute distress. forgetful HEAD: Normal with no signs of trauma. EYES: PERRL, extraocular movements intact, sclera anicteric, conjunctiva clear. No ptosis. ENT: Ears normal, nares patent, oropharynx clear without exudates NECK: Trachea midline, full range of motion, supple. LUNGS: Breath sounds equal HEART: Regular rate and rhythm ABDOMEN: Soft, nontender, nondistended, normoactive bowel sounds. right groin wound attached to wound vac. EXTREMITIES: s/p right below knee amputation with immobilizer NEUROLOGICAL: Normal speech, gait not observed. PSYCH: Normal mood, normal affect Laboratory Results - last 24 hr 03/23/20 03/23/20 03/24/20 17:12 21:31 06:19 WBC RBC Hgb Hct MCV MCH MCHC RDW Plt Count MPV Absolute Neuts (auto) Neutrophils % Lymphocytes % Monocytes % Eosinophils % Basophils % Nucleated RBC % Sodium Potassium Chloride Carbon Dioxide Anion Gap BUN Creatinine Est GFR (CKD-EPI)AfAm Est GFR (CKD-EPI)NonAf POC Glucometer 234 207 76 Random Glucose Calcium Magnesium Total Bilirubin AST ALT Alkaline Phosphatase Total Protein Albumin 03/24/20 03/24/20 03/24/20 07:48 07:48 11:37 WBC 8.1 RBC 2.91 L Hgb 8.5 L Hct 25.1 L MCV 86.4 MCH 29.1 MCHC 33.7 RDW 15.0 Plt Count 292 MPV 7.8 Absolute Neuts (auto) 6.8 Neutrophils % 83.8 H Lymphocytes % 8.7 D Monocytes % 4.9 Eosinophils % 2.4 Basophils % 0.2 Nucleated RBC % 0 Sodium 143 Potassium 3.9 Chloride 108 H Carbon Dioxide 30 Anion Gap 4 L BUN 12.1 Creatinine 0.9 Est GFR (CKD-EPI)AfAm 105.72 Est GFR (CKD-EPI)NonAf 91.22 POC Glucometer 330 Random Glucose 149 H Calcium 9.1 Magnesium 1.9 Total Bilirubin 0.2 AST 17 ALT 11 L Alkaline Phosphatase 69 Total Protein 6.4 Albumin 1.8 L Active Medications Generic Name Dose Route Start Last Admin Trade Name Freq PRN Reason Stop Dose Admin Acetaminophen 650 mg 03/21/20 15:03 03/22/20 14:44 Tylenol - PO 650 mg Q4H PRN Administration FEVER Amino Acids 30 ml 03/22/20 10:00 03/24/20 09:55 Prosource No Carb Liquid Pkt PO 30 ml DAILY HUGO Administration Artificial Tears 1 drop 03/21/20 15:03 Artificial Tears OU Q6H PRN DRY EYES Carvedilol 12.5 mg 03/21/20 22:00 03/24/20 09:55 Coreg - PO 12.5 mg BID HUGO Administration Digoxin 0.125 mg 03/22/20 10:00 03/24/20 09:56 Lanoxin - PO 0.125 mg DAILY HUGO Administration Docusate Sodium 100 mg 03/21/20 22:00 03/24/20 09:55 Colace - PO 100 mg BID HUGO Administration Famotidine 20 mg 03/21/20 22:00 03/24/20 09:56 Pepcid - PO 20 mg BID HUGO Administration Gabapentin 300 mg 03/21/20 22:00 03/24/20 14:10 Neurontin - PO 300 mg TID HUGO Administration Insulin Aspart 1 vial 03/21/20 16:30 03/24/20 11:40 Novolog Vial Sliding Scale - SQ 14 units ACHS HUGO Administration Protocol Insulin Detemir 16 units 03/21/20 22:00 03/24/20 09:57 Levemir Vial SQ 16 units BID HUGO Administration Magnesium Oxide 400 mg 03/21/20 22:00 03/24/20 09:57 Mag-Ox - PO 400 mg BID HUGO Administration Multivitamins/Minerals/Vitamin C 1 tab 03/22/20 10:00 03/24/20 09:56 Tab-A-Vit - PO 1 tab DAILY HUGO Administration Nystatin 1 applic 03/21/20 22:00 03/24/20 14:10 Mycostatin Cream - TP 1 applic BID HUGO Administration Polyethylene Glycol 17 gm 03/22/20 10:00 03/24/20 14:28 Miralax (For Daily Use) - PO 17 gm DAILY HUGO Administration Quetiapine Fumarate 50 mg 03/21/20 22:00 03/23/20 21:35 Seroquel - PO 50 mg HS HUGO Administration Senna 1 tab 03/21/20 22:00 03/24/20 09:56 Senna - PO 1 tab BID HUGO Administration Tamsulosin HCl 0.4 mg 03/22/20 08:30 03/24/20 09:55 Flomax - PO 0.4 mg DAILY@0830 HUGO Administration Valsartan 320 mg 03/22/20 10:00 03/24/20 09:56 Diovan - PO 320 mg DAILY HUGO Administration Zinc Sulfate 220 mg 03/22/20 10:00 03/24/20 09:55 Orazinc - PO 220 mg DAILY HUGO Administration ASSESSMENT/PLAN: Problem List - Problems (1) S/P TURP Assessment/Plan: patient is s/p TURP procedure with Dr. Sandoval. [address] liang removed. now with liang with clear yellow urine. Code(s): Z90.79 - ACQUIRED ABSENCE OF OTHER GENITAL ORGAN(S) (2) Fever Assessment/Plan: resolved Code(s): R50.9 - FEVER, UNSPECIFIED (3) Diabetic foot infection Assessment/Plan: patient is s/p below right knee amputation. antibiotics completed Code(s): E11.628 - TYPE 2 DIABETES MELLITUS WITH OTHER SKIN COMPLICATIONS; L08.9 - LOCAL INFECTION OF THE SKIN AND SUBCUTANEOUS TISSUE, UNSP (4) Anemia Assessment/Plan: Anemia of chronic disease no signs of bleeding s/p 1 unit of prbc on 02/24 monitor CBC daily Code(s): D64.9 - ANEMIA, UNSPECIFIED (5) CKD (chronic kidney disease) Assessment/Plan: monitor kidney function trend intake/output and electrolytes Code(s): N18.9 - CHRONIC KIDNEY DISEASE, UNSPECIFIED (6) Congestive heart failure Assessment/Plan: Patient has normal ejection fraction, continue coreg, and digoxin, Stress test completed on 02/09/2020 no signs of volume overload Code(s): I50.9 - HEART FAILURE, UNSPECIFIED Qualifiers: Heart failure type: unspecified (7) Hypertension Assessment/Plan: controlled on coreq 12.5mg bid, digoxin 0.125mg daily Code(s): I10 - ESSENTIAL (PRIMARY) HYPERTENSION (8) Uncontrolled type 2 diabetes mellitus Assessment/Plan: BGMs improved, goal is to maintain fasting bgms<180 on levemir Code(s): E11.65 - TYPE 2 DIABETES MELLITUS WITH HYPERGLYCEMIA (9) DVT prophylaxis Assessment/Plan: SCDs. heparin d/c after patient had right groin hemorrhage Code(s): Z29.9 - ENCOUNTER FOR PROPHYLACTIC MEASURES, UNSPECIFIED Visit type - Emergency Visit Emergency Visit: Yes ED Registration Date: 02/03/20 Care time: The patient presented to the Emergency Department on the above date and was hospitalized for further evaluation of their emergent condition. - New Patient This patient is new to me today: No - Critical Care Critical Care patient: No - Discharge Referral Referred to [facility] Med P.C.: No
[2020-03-24] MEDS ORDERED: QUEtiapine FUMARATE 25 MG TABLET ONE (20:21)
[2020-03-24] MEDS: QUEtiapine FUMARATE 50 MG TABLET PO SCH (21:29)
[2020-03-24] MEDS: ACETAMINOPHEN 325 MG TABLET (FP) PO PRN (23:23)
[2020-03-25] MEDS: GABAPENTIN 300 MG CAPSULE PO SCH ×3 (05:30→21:57)
[2020-03-25] MEDS: INSULIN SLIDING SCALE (NOVOLOG) 1 VIAL SQ SCH ×4 (06:04→21:55)
[2020-03-25] MEDS ORDERED: INSULIN (NOVOLOG) ASPART 100 UNITS/ML 10ML VIAL ONE ×2 (06:22→17:39)
[2020-03-25] MEDS: SENNOSIDES 8.6MG TABLET (FP) PO SCH ×2 (10:20→21:56)
[2020-03-25] MEDS: ZINC SULFATE 220 MG CAPSULE (FP) PO SCH (10:20)
[2020-03-25] MEDS: MAGNESIUM OXIDE 400 MG TABLET (FP) PO SCH ×2 (10:20→21:56)
[2020-03-25] MEDS: CARVEDILOL 12.5 MG TABLET (FP) PO SCH ×2 (10:20→21:56)
[2020-03-25] MEDS: AMINO ACIDS/PROTEIN HYDROLYS 30 ML LIQUID.PKT PO SCH (10:20)
[2020-03-25] MEDS: TAMSULOSIN HCL 0.4 MG CAP PO SCH (10:20)
[2020-03-25] MEDS: DIGOXIN 0.125 MG TABLET (FP) PO SCH (10:20)
[2020-03-25] MEDS: ACETAMINOPHEN 325 MG TABLET (FP) PO PRN ×2 (10:20→15:17)
[2020-03-25] MEDS: DOCUSATE SODIUM 100 MG CAPSULE (FP) PO SCH ×2 (10:20→21:56)
[2020-03-25] MEDS: MULTIVITAMINS (DAILY MVI) TABLET (FP) PO SCH (10:20)
[2020-03-25] MEDS: NYSTATIN 100,000 UNIT/GM TOPICAL CREAM 15 GM TUBE TP SCH ×2 (10:21→21:57)
[2020-03-25] MEDS: VALSARTAN 160 MG TABLET PO SCH (10:21)
[2020-03-25] MEDS: FAMOTIDINE 20 MG TABLET PO SCH ×2 (10:22→21:56)
[2020-03-25] MEDS: POLYETHYLENE GLYCOL 3350 119 GM BTL PO SCH (10:25)
[2020-03-25] MEDS: INSULIN (LEVEMIR) 100 UNITS/ML UNITS SQ SCH ×2 (11:25→21:55)
--- NOTE | 2020-03-25 12:15 | PN ---
Physical Exam: SUBJECTIVE: Patient seen and examined at the bedside. resting comfortably. re covid swab ordered for d/c planning. OBJECTIVE: Patient is a 64 year old male with a significant past medical history of DM, schizophrenia, HTN, HLD, GERD, dementia, EtOH use disorder who had his right knee great toe amputated apx 1 month prior to admission, presents to the ED on 02/03/2020 with right 2nd digit gangrene. At [facility] pt underwent RLE angiogram which revealed right SFA occlusion. He is being followed by vascular surgery and is s/p fem-pop bypass. Right groin found to have purulent drainage and found to be infected, wound vac placed. Patient is s/p right below knee amputation on 03/08/2020. On 03/11/2020 patient was a rapid response and code H (hemorrhage) when he was found to be profusely bleeding from wound vac site. He was sent to the ICU for closer monitoring. On 03/21/2020 patient underwent a TURP procedure and completed CBI. now with liang cath with clear yellow urine. ------ covid status: negative as per serology 02/02, 02/10/2020, 03/07/2020 Period Temp Pulse Resp BP Sys/Leahy Pulse Ox Last 24 Hr 98.2 F-99.4 F 78-95 18-18 108-153/59-83 96-100 GENERAL: The patient is awake, alert, in no acute distress. forgetful HEAD: Normal with no signs of trauma. EYES: PERRL, extraocular movements intact, sclera anicteric, conjunctiva clear. No ptosis. ENT: Ears normal, nares patent, oropharynx clear without exudates NECK: Trachea midline, full range of motion, supple. LUNGS: Breath sounds equal HEART: Regular rate and rhythm ABDOMEN: Soft, nontender, nondistended, normoactive bowel sounds. right groin wound attached to wound vac. EXTREMITIES: s/p right below knee amputation with immobilizer NEUROLOGICAL: Normal speech PSYCH: Normal mood, normal affect Laboratory Results - last 24 hr 03/24/20 03/24/20 03/25/20 17:19 21:43 06:03 POC Glucometer 242 232 141 03/25/20 11:47 POC Glucometer 198 Active Medications Generic Name Dose Route Start Last Admin Trade Name Freq PRN Reason Stop Dose Admin Acetaminophen 650 mg 03/21/20 15:03 03/25/20 10:20 Tylenol - PO 650 mg Q4H PRN Administration FEVER Amino Acids 30 ml 03/22/20 10:00 03/25/20 10:20 Prosource No Carb Liquid Pkt PO 30 ml DAILY HUGO Administration Artificial Tears 1 drop 03/21/20 15:03 Artificial Tears OU Q6H PRN DRY EYES Carvedilol 12.5 mg 03/21/20 22:00 03/25/20 10:20 Coreg - PO 12.5 mg BID HUGO Administration Digoxin 0.125 mg 03/22/20 10:00 03/25/20 10:20 Lanoxin - PO 0.125 mg DAILY HUGO Administration Docusate Sodium 100 mg 03/21/20 22:00 03/25/20 10:20 Colace - PO 100 mg BID HUGO Administration Famotidine 20 mg 03/21/20 22:00 03/25/20 10:22 Pepcid - PO 20 mg BID HUGO Administration Gabapentin 300 mg 03/21/20 22:00 03/25/20 05:30 Neurontin - PO 300 mg TID HUGO Administration Insulin Aspart 1 vial 03/21/20 16:30 03/25/20 11:49 Novolog Vial Sliding Scale - SQ 8 units ACHS HUGO Administration Protocol Insulin Detemir 16 units 03/21/20 22:00 03/25/20 11:25 Levemir Vial SQ 16 units BID HUGO Administration Magnesium Oxide 400 mg 03/21/20 22:00 03/25/20 10:20 Mag-Ox - PO 400 mg BID HUGO Administration Multivitamins/Minerals/Vitamin C 1 tab 03/22/20 10:00 03/25/20 10:20 Tab-A-Vit - PO 1 tab DAILY HUGO Administration Nystatin 1 applic 03/21/20 22:00 03/25/20 10:21 Mycostatin Cream - TP 1 applic BID HUGO Administration Polyethylene Glycol 17 gm 03/22/20 10:00 03/25/20 10:25 Miralax (For Daily Use) - PO 17 gm DAILY HUGO Administration Quetiapine Fumarate 50 mg 03/21/20 22:00 03/24/20 21:29 Seroquel - PO 50 mg HS HUGO Administration Senna 1 tab 03/21/20 22:00 03/25/20 10:20 Senna - PO 1 tab BID HUGO Administration Tamsulosin HCl 0.4 mg 03/22/20 08:30 03/25/20 10:20 Flomax - PO 0.4 mg DAILY@0830 HUGO Administration Valsartan 320 mg 03/22/20 10:00 03/25/20 10:21 Diovan - PO 320 mg DAILY HUGO Administration Zinc Sulfate 220 mg 03/22/20 10:00 03/25/20 10:20 Orazinc - PO 220 mg DAILY HUGO Administration ASSESSMENT/PLAN: Problem List - Problems (1) S/P TURP Assessment/Plan: patient is s/p TURP procedure with Dr. Sandoval. [address] liang removed. now with liang with clear yellow urine. per urologist, can remove liang tomorrow and perform a voiding trial. Code(s): Z90.79 - ACQUIRED ABSENCE OF OTHER GENITAL ORGAN(S) (2) Fever Assessment/Plan: resolved Code(s): R50.9 - FEVER, UNSPECIFIED (3) Diabetic foot infection Assessment/Plan: patient is s/p below right knee amputation. antibiotics completed Code(s): E11.628 - TYPE 2 DIABETES MELLITUS WITH OTHER SKIN COMPLICATIONS; L08.9 - LOCAL INFECTION OF THE SKIN AND SUBCUTANEOUS TISSUE, UNSP (4) Anemia Assessment/Plan: Anemia of chronic disease no signs of bleeding s/p 1 unit of prbc on 02/24 monitor CBC daily Code(s): D64.9 - ANEMIA, UNSPECIFIED (5) CKD (chronic kidney disease) Assessment/Plan: monitor kidney function trend intake/output and electrolytes Code(s): N18.9 - CHRONIC KIDNEY DISEASE, UNSPECIFIED (6) Congestive heart failure Assessment/Plan: Patient has normal ejection fraction, continue coreg, and digoxin, Stress test completed on 02/09/2020 no signs of volume overload Code(s): I50.9 - HEART FAILURE, UNSPECIFIED Qualifiers: Heart failure type: unspecified (7) Hypertension Assessment/Plan: controlled on coreq 12.5mg bid, digoxin 0.125mg daily Code(s): I10 - ESSENTIAL (PRIMARY) HYPERTENSION (8) Uncontrolled type 2 diabetes mellitus Assessment/Plan: BGMs improved, goal is to maintain fasting bgms<180 on levemir Code(s): E11.65 - TYPE 2 DIABETES MELLITUS WITH HYPERGLYCEMIA (9) DVT prophylaxis Assessment/Plan: SCDs. heparin d/c after patient had right groin hemorrhage Code(s): Z29.9 - ENCOUNTER FOR PROPHYLACTIC MEASURES, UNSPECIFIED Visit type - Emergency Visit Emergency Visit: Yes ED Registration Date: 02/03/20 Care time: The patient presented to the Emergency Department on the above date and was hospitalized for further evaluation of their emergent condition. - New Patient This patient is new to me today: No - Critical Care Critical Care patient: No - Discharge Referral Referred to [facility] No
[2020-03-25] MEDS ORDERED: INSULIN (LEVEMIR) 100 UNITS/ML UNITS SQ ONE (17:39)
[2020-03-25] MEDS ORDERED: QUEtiapine FUMARATE 25 MG TABLET ONE (20:48)
[2020-03-25] MEDS ORDERED: PT OWN MED DRAWER 7, Y5N ONE (21:50)
[2020-03-25] MEDS: QUEtiapine FUMARATE 50 MG TABLET PO SCH (21:56)
[2020-03-26] MEDS: GABAPENTIN 300 MG CAPSULE PO SCH ×3 (06:30→22:12)
[2020-03-26] MEDS: INSULIN SLIDING SCALE (NOVOLOG) 1 VIAL SQ SCH ×4 (06:31→22:14)
[2020-03-26] MEDS ORDERED: INSULIN (LEVEMIR) 100 UNITS/ML UNITS SQ ONE (06:56)
[2020-03-26] MEDS ORDERED: INSULIN (NOVOLOG) ASPART 100 UNITS/ML 10ML VIAL ONE (06:56)
[2020-03-26] MEDS: AMINO ACIDS/PROTEIN HYDROLYS 30 ML LIQUID.PKT PO SCH (09:15)
[2020-03-26] MEDS: INSULIN (LEVEMIR) 100 UNITS/ML UNITS SQ SCH ×2 (09:16→22:13)
[2020-03-26] MEDS: TAMSULOSIN HCL 0.4 MG CAP PO SCH (09:18)
[2020-03-26] MEDS: DOCUSATE SODIUM 100 MG CAPSULE (FP) PO SCH ×2 (09:18→22:12)
[2020-03-26] MEDS: CARVEDILOL 12.5 MG TABLET (FP) PO SCH ×2 (09:18→22:12)
[2020-03-26] MEDS: ZINC SULFATE 220 MG CAPSULE (FP) PO SCH (09:18)
[2020-03-26] MEDS: SENNOSIDES 8.6MG TABLET (FP) PO SCH ×2 (09:18→22:12)
[2020-03-26] MEDS: MULTIVITAMINS (DAILY MVI) TABLET (FP) PO SCH (09:19)
[2020-03-26] MEDS: FAMOTIDINE 20 MG TABLET PO SCH ×2 (09:19→22:12)
[2020-03-26] MEDS: DIGOXIN 0.125 MG TABLET (FP) PO SCH (09:20)
[2020-03-26] MEDS: ACETAMINOPHEN 325 MG TABLET (FP) PO PRN (09:21)
[2020-03-26] MEDS: MAGNESIUM OXIDE 400 MG TABLET (FP) PO SCH ×2 (09:21→22:13)
[2020-03-26] MEDS: POLYETHYLENE GLYCOL 3350 119 GM BTL PO SCH (09:21)
[2020-03-26] MEDS: VALSARTAN 160 MG TABLET PO SCH (09:21)
[2020-03-26] MEDS: NYSTATIN 100,000 UNIT/GM TOPICAL CREAM 15 GM TUBE TP SCH ×2 (09:21→22:13)
--- NOTE | 2020-03-26 10:22 | PN ---
Progress Note (short form) - Note Progress Note: cc: toe infection s:no cp sob palps dizzy Current Medications Generic Name Dose Route Start Last Admin Trade Name Freq PRN Reason Stop Dose Admin Acetaminophen 650 mg 03/21/20 15:03 03/26/20 09:21 Tylenol - PO 650 mg Q4H PRN Administration FEVER Amino Acids 30 ml 03/22/20 10:00 03/26/20 09:15 Prosource No Carb Liquid Pkt PO 30 ml DAILY HUGO Administration Artificial Tears 1 drop 03/21/20 15:03 Artificial Tears OU Q6H PRN DRY EYES Carvedilol 12.5 mg 03/21/20 22:00 03/26/20 09:18 Coreg - PO 12.5 mg BID HUGO Administration Digoxin 0.125 mg 03/22/20 10:00 03/26/20 09:20 Lanoxin - PO 0.125 mg DAILY HUGO Administration Docusate Sodium 100 mg 03/21/20 22:00 03/26/20 09:18 Colace - PO 100 mg BID HUGO Administration Famotidine 20 mg 03/21/20 22:00 03/26/20 09:19 Pepcid - PO 20 mg BID HUGO Administration Gabapentin 300 mg 03/21/20 22:00 03/26/20 06:30 Neurontin - PO 300 mg TID HUGO Administration Insulin Aspart 1 vial 03/21/20 16:30 03/26/20 06:31 Novolog Vial Sliding Scale - SQ 10 units ACHS HUGO Administration Protocol Insulin Detemir 16 units 03/21/20 22:00 03/26/20 09:16 Levemir Vial SQ 16 units BID HUGO Administration Magnesium Oxide 400 mg 03/21/20 22:00 03/26/20 09:21 Mag-Ox - PO 400 mg BID HUGO Administration Multivitamins/Minerals/Vitamin C 1 tab 03/22/20 10:00 03/26/20 09:19 Tab-A-Vit - PO 1 tab DAILY HUGO Administration Nystatin 1 applic 03/21/20 22:00 03/26/20 09:21 Mycostatin Cream - TP 1 applic BID HUGO Administration Polyethylene Glycol 17 gm 03/22/20 10:00 03/26/20 09:21 Miralax (For Daily Use) - PO 17 gm DAILY HUGO Administration Quetiapine Fumarate 50 mg 03/21/20 22:00 03/25/20 21:56 Seroquel - PO 50 mg HS HUGO Administration Senna 1 tab 03/21/20 22:00 03/26/20 09:18 Senna - PO 1 tab BID HUGO Administration Tamsulosin HCl 0.4 mg 03/22/20 08:30 03/26/20 09:18 Flomax - PO 0.4 mg DAILY@0830 HUGO Administration Valsartan 320 mg 03/22/20 10:00 03/26/20 09:21 Diovan - PO 320 mg DAILY HUGO Administration Zinc Sulfate 220 mg 03/22/20 10:00 03/26/20 09:18 Orazinc - PO 220 mg DAILY HUGO Administration Vital Signs Period Temp Pulse Resp BP Sys/Leahy Pulse Ox Last 24 Hr 97.6 F-98.6 F 83-88 18-18 122-146/68-76 95-99 Constitutional: Yes: Well Nourished, No Distress Eyes: No: Sclera Icterus HENT: No: Nasal Congestion Respiratory: Yes: CTA Bilaterally. No: Accessory Muscle Use, Rales, Wheezes Gastrointestinal: Yes: Normal Bowel Sounds. No: Distention, Hepatomegaly, Palpable Mass, Tenderness Cardiovascular: Yes: Regular Rate and Rhythm JVD: No Heart Sounds: Yes: S1, S2. No: Gallop Murmur: No: Systolic Murmur, Diastolic Murmur Edema: No Integumentary: No: Jaundice Neurological: awake, appropriate Psychiatric: No: Agitated Laboratory Last Values WBC 8.1 K/mm3 (4.0-10.0) 03/24/20 07:48 RBC 2.91 M/mm3 (4.00-5.60) L 03/24/20 07:48 Hgb 8.5 GM/dL (11.7-16.9) L 03/24/20 07:48 Hct 25.1 % (35.4-49) L 03/24/20 07:48 MCV 86.4 fl (80-96) 03/24/20 07:48 MCH 29.1 pg (25.7-33.7) 03/24/20 07:48 MCHC 33.7 g/dl (32.0-35.9) 03/24/20 07:48 RDW 15.0 % (11.9-15.9) 03/24/20 07:48 Plt Count 292 K/MM3 (134-434) 03/24/20 07:48 MPV 7.8 fl (7.5-11.1) 03/24/20 07:48 Absolute Neuts (auto) 6.8 K/mm3 (1.5-8.0) 03/24/20 07:48 Neutrophils % 83.8 % (42.8-82.8) H 03/24/20 07:48 Neutrophils % (Manual) 97.0 % (42.8-82.8) H 03/12/20 05:30 Band Neutrophils % 0.0 % 03/12/20 05:30 Lymphocytes % 8.7 % (8-40) D 03/24/20 07:48 Lymphocytes % (Manual) 2.0 % (8-40) L 03/12/20 05:30 Monocytes % 4.9 % (3.8-10.2) 03/24/20 07:48 Monocytes % (Manual) 0 % (3.8-10.2) L 03/12/20 05:30 Eosinophils % 2.4 % (0-4.5) 03/24/20 07:48 Eosinophils % (Manual) 0.0 % (0-4.5) 03/12/20 05:30 Basophils % 0.2 % (0-2.0) 03/24/20 07:48 Basophils % (Manual) 0.0 % (0-2.0) 03/12/20 05:30 Myelocytes % (Man) 0 % (0-2) 03/12/20 05:30 Promyelocytes % (Man) 0 % (0-2) 03/12/20 05:30 Blast Cells % (Manual) 0 % (0-0) 03/12/20 05:30 Nucleated RBC % 0 % (0-0) 03/24/20 07:48 Metamyelocytes 1 % (0-2) 03/12/20 05:30 Hypochromia 0 03/12/20 05:30 Platelet Estimate Normal 03/12/20 05:30 Polychromasia 0 03/12/20 05:30 Poikilocytosis 0 03/12/20 05:30 Anisocytosis 1+ 03/12/20 05:30 Microcytosis 0 03/12/20 05:30 Macrocytosis 1+ 03/12/20 05:30 ESR 91 mm/hr (0-20) H 02/03/20 13:05 Retic Count 0.87 % (0.5-1.5) 02/04/20 07:50 PT with INR 13.70 SEC (9.7-13.0) H 03/18/20 07:30 INR 1.16 (0.83-1.09) H 03/18/20 07:30 PTT (Actin FS) 27.3 SECONDS (25.2-36.5) 03/11/20 23:05 Fibrinogen > 500.0 mg/dL (238-498) H 03/11/20 23:05 Sodium 143 mmol/L (136-145) 03/24/20 07:48 Potassium 3.9 mmol/L (3.5-5.1) 03/24/20 07:48 Chloride 108 mmol/L (98-107) H 03/24/20 07:48 Carbon Dioxide 30 mmol/L (21-32) 03/24/20 07:48 Anion Gap 4 MMOL/L (8-16) L 03/24/20 07:48 BUN 12.1 mg/dL (7-18) 03/24/20 07:48 Creatinine 0.9 mg/dL (0.55-1.3) 03/24/20 07:48 Est GFR (CKD-EPI)AfAm 105.72 03/24/20 07:48 Est GFR (CKD-EPI)NonAf 91.22 03/24/20 07:48 POC Glucometer 203 UNITS (80-120) 03/26/20 05:52 Random Glucose 149 mg/dL (74-106) H 03/24/20 07:48 Hemoglobin A1c % 9.9 % (4.2-6.3) H 02/12/20 10:35 Lactic Acid 1.7 mmol/L (0.4-2.0) 02/25/20 15:30 Calcium 9.1 mg/dL (8.5-10.1) 03/24/20 07:48 Phosphorus 4.9 mg/dL (2.5-4.9) 03/18/20 07:30 Magnesium 1.9 mg/dL (1.8-2.4) 03/24/20 07:48 Iron 17 ug/dL (50-175) L 02/04/20 07:50 TIBC 137 ug/dL (250-450) L 02/04/20 07:50 Iron Saturation 12 % (17.5-39) L 02/04/20 07:50 Unsaturated IBC 120 ug/dL (200-275) L 02/04/20 07:50 Transferrin 110 mg/dL (177-329) L 02/04/20 07:50 Ferritin 398.2 ng/ml (8-388) H 02/04/20 07:50 Total Bilirubin 0.2 mg/dL (0.2-1) 03/24/20 07:48 AST 17 U/L (15-37) 03/24/20 07:48 ALT 11 U/L (13-61) L 03/24/20 07:48 Alkaline Phosphatase 69 U/L (45-117) 03/24/20 07:48 Creatine Kinase 460 U/L (26-308) H 03/19/20 08:25 Creatine Kinase Index 0.2 % (0.0-5.0) 03/19/20 08:25 CK-MB (CK-2) 1.2 ng/mL (0.5-3.6) 03/19/20 08:25 Troponin I < 0.02 ng/ml (0.00-0.05) 02/09/20 10:30 C-Reactive Protein 7.6 MG/DL (0.00-0.3) H 03/19/20 08:25 Total Protein 6.4 g/dl (6.4-8.2) 03/24/20 07:48 Albumin 1.8 g/dl (3.4-5.0) L 03/24/20 07:48 Vitamin B12 688 pg/ml (193-986) 02/04/20 07:50 Serum Folate 9 ng/mL (3.1-17.5) 02/04/20 06:00 Urine Color Yellow 02/23/20 18:20 Urine Appearance Clear 02/23/20 18:20 Urine pH 5.5 (5.0-8.0) 02/23/20 18:20 Ur Specific [place] 1.020 (1.010-1.035) 02/23/20 18:20 Urine Protein 2+ (NEGATIVE) H 02/23/20 18:20 Urine Glucose (UA) Negative (NEGATIVE) 02/23/20 18:20 Urine Ketones Negative (NEGATIVE) 02/23/20 18:20 Urine Blood Negative (NEGATIVE) 02/23/20 18:20 Urine Nitrite Negative (NEGATIVE) 02/23/20 18:20 Urine Bilirubin Negative (NEGATIVE) 02/23/20 18:20 Urine Urobilinogen 0.2 mg/dL (0.2-1.0) 02/23/20 18:20 Ur Leukocyte Esterase Negative (NEGATIVE) 02/23/20 18:20 Urine WBC (Auto) 143.2 /uL (0-25.8) 02/23/20 18:20 Urine RBC (Auto) 12 /uL (0-23.9) 02/23/20 18:20 Urine Casts (Auto) 4 /uL (0-3.1) 02/23/20 18:20 U Epithel Cells (Auto) 6 /uL (0-25.1) 02/23/20 18:20 Urine Bacteria (Auto) 130 /uL (0-1359) 02/23/20 18:20 Urine Yeast (Auto) Few (NEGATIVE) 02/23/20 18:20 Stool Occult Blood Negative (NEGATIVE) 02/25/20 14:45 Random Vancomycin 8.2 ug/ml (5-26) 02/03/20 16:10 Vancomycin Pre-Dose 7.9 ug/ml (5-10) 02/07/20 16:02 Digoxin 0.67 ng/ml (0.8-2.0) L 03/06/20 08:40 COVID-19 (LESLIE) Not detected (Not Detected) 03/25/20 12:00 Blood Type O POSITIVE 03/11/20 23:05 Antibody Screen Negative 03/11/20 23:05 Crossmatch See Detail 03/11/20 23:05 Crossmatch IS Only See Detail 02/16/20 08:06 Assessment/Plan echo 01/2020: normal LVEF, nl RV, nl valve function. CXR: ATX vs infiltrate R base, no effusions/congestion mibi 01/2020 mod sized area of inferolateral scar, no ischemia, EF 45% postop bleeding, PAD - s/p R fem-pop, BKA - 03/11 transferred to ICU and taken urgently to OR for bleeding - stable H/H after OR, received IVF, PRBCs with stable BP - manage per vascular -now s/p TURP, following CAD: - no angina sx's here - preop mibi shows inferolateral scar, no ischemia. mildly reduced EF. - continue statin, aspirin - on digoxin for unclear indication, levels ok here, continue--outpt f/u with prior treating physician DM: -per hospitalist HTN: - cont current meds HPL: -cont statin
[2020-03-26 10:25] LABS: BASO % 0.5 % (0-2.0); EOS % 3.7 % (0-4.5); HEMATOCRIT 26.3 % (35.4-49); HEMOGLOBIN 8.6 GM/dL (11.7-16.9); LYMPH % 12.6 % (8-40); MCH 28.1 pg (25.7-33.7); MCHC 32.6 g/dl (32.0-35.9); MEAN CELL VOLUME 86.2 fl (80-96); MEAN PLT VOLUME 7.6 fl (7.5-11.1); MONO % 7.3 % (3.8-10.2); NEUT % 75.9 % (42.8-82.8); PLATELET COUNT 332 K/MM3 (134-434); RBC 3.05 M/mm3 (4.00-5.60); RDW 14.8 % (11.9-15.9); WHITE BLOOD COUNT 7.3 K/mm3 (4.0-10.0)
[2020-03-26 10:45] LABS: ALBUMIN 1.9 g/dl (3.4-5.0); BILIRUBIN,TOTAL 0.2 mg/dL (0.2-1); BLOOD UREA NITROGEN 20.5 mg/dL (7-18); CALCIUM 8.9 mg/dL (8.5-10.1); CREATININE 1.2 mg/dL (0.55-1.3); POTASSIUM 4.3 mmol/L (3.5-5.1); TOT PROT 6.7 g/dl (6.4-8.2)
--- NOTE | 2020-03-26 14:24 | PN ---
Physical Exam: SUBJECTIVE: Patient seen and examined. no acute events. OBJECTIVE: Patient is a 64 year old male with a significant past medical history of DM, schizophrenia, HTN, HLD, GERD, dementia, EtOH use disorder who had his right knee great toe amputated apx 1 month prior to admission, presents to the ED on 02/03/2020 with right 2nd digit gangrene. At [facility] pt underwent RLE angiogram which revealed right SFA occlusion. He is being followed by vascular surgery and is s/p fem-pop bypass. Right groin found to have purulent drainage and found to be infected, wound vac placed. Patient is s/p right below knee amputation on 03/08/2020. On 03/11/2020 patient was a rapid response and code H (hemorrhage) when he was found to be profusely bleeding from wound vac site. He was sent to the ICU for closer monitoring. On 03/21/2020 patient underwent a TURP procedure and completed CBI. liang cath removed and on a voiding trial. anticipate discharge on Saturday back to [facility]. ------ covid status: negative as per serology 02/02, 02/10/2020, 03/07/2020, and 03/25/2020 Period Temp Pulse Resp BP Sys/Leahy Pulse Ox Last 24 Hr 97.6 F-98.6 F 83-88 16-18 108-151/59-76 95-99 GENERAL: The patient is awake, alert, in no acute distress. forgetful HEAD: Normal with no signs of trauma. EYES: PERRL, extraocular movements intact, sclera anicteric, conjunctiva clear. No ptosis. ENT: Ears normal, nares patent, oropharynx clear without exudates NECK: Trachea midline, full range of motion, supple. LUNGS: Breath sounds equal HEART: Regular rate and rhythm ABDOMEN: Soft, nontender, nondistended, normoactive bowel sounds. right groin wound attached to wound vac. EXTREMITIES: s/p right below knee amputation with immobilizer NEUROLOGICAL: Normal speech PSYCH: Normal mood, normal affect Laboratory Results - last 24 hr 03/25/20 03/25/20 03/25/20 12:00 17:00 21:02 WBC RBC Hgb Hct MCV MCH MCHC RDW Plt Count MPV Absolute Neuts (auto) Neutrophils % Lymphocytes % Monocytes % Eosinophils % Basophils % Nucleated RBC % Sodium Potassium Chloride Carbon Dioxide Anion Gap BUN Creatinine Est GFR (CKD-EPI)AfAm Est GFR (CKD-EPI)NonAf POC Glucometer 228 194 Random Glucose Calcium Magnesium Total Bilirubin AST ALT Alkaline Phosphatase Total Protein Albumin COVID-19 (LESLIE) Not detected 03/26/20 03/26/20 03/26/20 05:52 09:36 09:36 WBC 7.3 RBC 3.05 L Hgb 8.6 L Hct 26.3 L MCV 86.2 MCH 28.1 MCHC 32.6 RDW 14.8 Plt Count 332 MPV 7.6 Absolute Neuts (auto) 5.5 Neutrophils % 75.9 Lymphocytes % 12.6 D Monocytes % 7.3 Eosinophils % 3.7 Basophils % 0.5 Nucleated RBC % 0 Sodium 141 Potassium 4.3 Chloride 108 H Carbon Dioxide 29 Anion Gap 4 L BUN 20.5 H Creatinine 1.2 Est GFR (CKD-EPI)AfAm 74.66 Est GFR (CKD-EPI)NonAf 64.42 POC Glucometer 203 Random Glucose 189 H Calcium 8.9 Magnesium 2.0 Total Bilirubin 0.2 AST 14 L ALT 12 L Alkaline Phosphatase 88 Total Protein 6.7 Albumin 1.9 L COVID-19 (LESLIE) 03/26/20 11:39 WBC RBC Hgb Hct MCV MCH MCHC RDW Plt Count MPV Absolute Neuts (auto) Neutrophils % Lymphocytes % Monocytes % Eosinophils % Basophils % Nucleated RBC % Sodium Potassium Chloride Carbon Dioxide Anion Gap BUN Creatinine Est GFR (CKD-EPI)AfAm Est GFR (CKD-EPI)NonAf POC Glucometer 282 Random Glucose Calcium Magnesium Total Bilirubin AST ALT Alkaline Phosphatase Total Protein Albumin COVID-19 (LESLIE) Active Medications Generic Name Dose Route Start Last Admin Trade Name Freq PRN Reason Stop Dose Admin Acetaminophen 650 mg 03/21/20 15:03 03/26/20 09:21 Tylenol - PO 650 mg Q4H PRN Administration FEVER Amino Acids 30 ml 03/22/20 10:00 03/26/20 09:15 Prosource No Carb Liquid Pkt PO 30 ml DAILY HUGO Administration Artificial Tears 1 drop 03/21/20 15:03 Artificial Tears OU Q6H PRN DRY EYES Carvedilol 12.5 mg 03/21/20 22:00 03/26/20 09:18 Coreg - PO 12.5 mg BID HUGO Administration Digoxin 0.125 mg 03/22/20 10:00 03/26/20 09:20 Lanoxin - PO 0.125 mg DAILY HUGO Administration Docusate Sodium 100 mg 03/21/20 22:00 03/26/20 09:18 Colace - PO 100 mg BID HUGO Administration Famotidine 20 mg 03/21/20 22:00 03/26/20 09:19 Pepcid - PO 20 mg BID HUGO Administration Gabapentin 300 mg 03/21/20 22:00 03/26/20 13:41 Neurontin - PO 300 mg TID HUGO Administration Insulin Aspart 1 vial 03/21/20 16:30 03/26/20 11:41 Novolog Vial Sliding Scale - SQ 12 units ACHS HUGO Administration Protocol Insulin Detemir 16 units 03/21/20 22:00 03/26/20 09:16 Levemir Vial SQ 16 units BID HUGO Administration Magnesium Oxide 400 mg 03/21/20 22:00 03/26/20 09:21 Mag-Ox - PO 400 mg BID HUGO Administration Multivitamins/Minerals/Vitamin C 1 tab 03/22/20 10:00 03/26/20 09:19 Tab-A-Vit - PO 1 tab DAILY HUGO Administration Nystatin 1 applic 03/21/20 22:00 03/26/20 09:21 Mycostatin Cream - TP 1 applic BID HUGO Administration Polyethylene Glycol 17 gm 03/22/20 10:00 03/26/20 09:21 Miralax (For Daily Use) - PO 17 gm DAILY HUGO Administration Quetiapine Fumarate 50 mg 03/21/20 22:00 03/25/20 21:56 Seroquel - PO 50 mg HS HUGO Administration Senna 1 tab 03/21/20 22:00 03/26/20 09:18 Senna - PO 1 tab BID HUGO Administration Tamsulosin HCl 0.4 mg 03/22/20 08:30 03/26/20 09:18 Flomax - PO 0.4 mg DAILY@0830 HUGO Administration Valsartan 320 mg 03/22/20 10:00 03/26/20 09:21 Diovan - PO 320 mg DAILY HUGO Administration Zinc Sulfate 220 mg 03/22/20 10:00 03/26/20 09:18 Orazinc - PO 220 mg DAILY HUGO Administration ASSESSMENT/PLAN: Problem List - Problems (1) S/P TURP Assessment/Plan: patient is s/p TURP procedure with Dr. Sandoval. [address] way liang removed. liang removed this morning, voiding trial being performed. monitor intake and output. Code(s): Z90.79 - ACQUIRED ABSENCE OF OTHER GENITAL ORGAN(S) (2) Fever Assessment/Plan: resolved Code(s): R50.9 - FEVER, UNSPECIFIED (3) Diabetic foot infection Assessment/Plan: patient is s/p below right knee amputation. antibiotics completed Code(s): E11.628 - TYPE 2 DIABETES MELLITUS WITH OTHER SKIN COMPLICATIONS; L08.9 - LOCAL INFECTION OF THE SKIN AND SUBCUTANEOUS TISSUE, UNSP (4) Anemia Assessment/Plan: Anemia of chronic disease no signs of bleeding s/p 1 unit of prbc on 02/24 monitor CBC daily Code(s): D64.9 - ANEMIA, UNSPECIFIED (5) CKD (chronic kidney disease) Assessment/Plan: monitor kidney function trend intake/output and electrolytes Code(s): N18.9 - CHRONIC KIDNEY DISEASE, UNSPECIFIED (6) Congestive heart failure Assessment/Plan: Patient has normal ejection fraction, continue coreg, and digoxin, Stress test completed on 02/09/2020 no signs of volume overload Code(s): I50.9 - HEART FAILURE, UNSPECIFIED Qualifiers: Heart failure type: unspecified (7) Hypertension Assessment/Plan: controlled on coreq 12.5mg bid, digoxin 0.125mg daily Code(s): I10 - ESSENTIAL (PRIMARY) HYPERTENSION (8) Uncontrolled type 2 diabetes mellitus Assessment/Plan: BGMs improved, goal is to maintain fasting bgms<180 on levemir Code(s): E11.65 - TYPE 2 DIABETES MELLITUS WITH HYPERGLYCEMIA (9) DVT prophylaxis Assessment/Plan: SCDs. heparin d/c after patient had right groin hemorrhage Code(s): Z29.9 - ENCOUNTER FOR PROPHYLACTIC MEASURES, UNSPECIFIED Visit type - Emergency Visit Emergency Visit: Yes ED Registration Date: 02/03/20 Care time: The patient presented to the Emergency Department on the above date and was hospitalized for further evaluation of their emergent condition. - New Patient This patient is new to me today: No - Critical Care Critical Care patient: No - Discharge Referral Referred to [facility] Yes
[2020-03-26] MEDS: QUEtiapine FUMARATE 50 MG TABLET PO SCH (22:12)
[2020-03-27] MEDS: INSULIN SLIDING SCALE (NOVOLOG) 1 VIAL SQ SCH ×2 (06:41→11:35)
[2020-03-27] MEDS: GABAPENTIN 300 MG CAPSULE PO SCH ×2 (06:41→14:24)
[2020-03-27 08:42] LABS: BASO % 0.3 % (0-2.0); EOS % 3.6 % (0-4.5); HEMATOCRIT 26.1 % (35.4-49); HEMOGLOBIN 8.7 GM/dL (11.7-16.9); LYMPH % 14.5 % (8-40); MCH 28.3 pg (25.7-33.7); MCHC 33.3 g/dl (32.0-35.9); MEAN PLT VOLUME 7.7 fl (7.5-11.1); MONO % 6.3 % (3.8-10.2); NEUT % 75.3 % (42.8-82.8); PLATELET COUNT 353 K/MM3 (134-434); RBC 3.07 M/mm3 (4.00-5.60); RDW 14.8 % (11.9-15.9); WHITE BLOOD COUNT 7.4 K/mm3 (4.0-10.0)
[2020-03-27] MEDS: TAMSULOSIN HCL 0.4 MG CAP PO SCH (08:46)
[2020-03-27 09:03] LABS: ALBUMIN 1.9 g/dl (3.4-5.0); BILIRUBIN,TOTAL 0.2 mg/dL (0.2-1); BLOOD UREA NITROGEN 22.5 mg/dL (7-18); CALCIUM 8.9 mg/dL (8.5-10.1); CREATININE 1.2 mg/dL (0.55-1.3); MAGNESIUM 2.1 mg/dL (1.8-2.4); POTASSIUM 3.9 mmol/L (3.5-5.1); TOT PROT 6.7 g/dl (6.4-8.2)
[2020-03-27] MEDS: DOCUSATE SODIUM 100 MG CAPSULE (FP) PO SCH (09:33)
[2020-03-27] MEDS: CARVEDILOL 12.5 MG TABLET (FP) PO SCH (09:33)
[2020-03-27] MEDS: ZINC SULFATE 220 MG CAPSULE (FP) PO SCH (09:33)
[2020-03-27] MEDS: DIGOXIN 0.125 MG TABLET (FP) PO SCH (09:34)
[2020-03-27] MEDS: FAMOTIDINE 20 MG TABLET PO SCH (09:34)
[2020-03-27] MEDS: MAGNESIUM OXIDE 400 MG TABLET (FP) PO SCH (09:34)
[2020-03-27] MEDS: SENNOSIDES 8.6MG TABLET (FP) PO SCH (09:34)
[2020-03-27] MEDS: AMINO ACIDS/PROTEIN HYDROLYS 30 ML LIQUID.PKT PO SCH (09:34)
[2020-03-27] MEDS: VALSARTAN 160 MG TABLET PO SCH (09:35)
[2020-03-27] MEDS: INSULIN (LEVEMIR) 100 UNITS/ML UNITS SQ SCH (09:35)
[2020-03-27] MEDS: POLYETHYLENE GLYCOL 3350 119 GM BTL PO SCH (09:35)
[2020-03-27] MEDS: MULTIVITAMINS (DAILY MVI) TABLET (FP) PO SCH (09:35)
[2020-03-27] MEDS: NYSTATIN 100,000 UNIT/GM TOPICAL CREAM 15 GM TUBE TP SCH (09:35)
--- NOTE | 2020-03-27 10:49 | PN ---
Progress Note (short form) - Note Progress Note: cc: toe infection s:no cp sob palps dizzy Current Medications Generic Name Dose Route Start Last Admin Trade Name Freq PRN Reason Stop Dose Admin Acetaminophen 650 mg 03/21/20 15:03 03/26/20 09:21 Tylenol - PO 650 mg Q4H PRN Administration FEVER Amino Acids 30 ml 03/22/20 10:00 03/27/20 09:34 Prosource No Carb Liquid Pkt PO 30 ml DAILY HUGO Administration Artificial Tears 1 drop 03/21/20 15:03 Artificial Tears OU Q6H PRN DRY EYES Carvedilol 12.5 mg 03/21/20 22:00 03/27/20 09:33 Coreg - PO 12.5 mg BID HUGO Administration Digoxin 0.125 mg 03/22/20 10:00 03/27/20 09:34 Lanoxin - PO 0.125 mg DAILY HUGO Administration Docusate Sodium 100 mg 03/21/20 22:00 03/27/20 09:33 Colace - PO 100 mg BID HUGO Administration Famotidine 20 mg 03/21/20 22:00 03/27/20 09:34 Pepcid - PO 20 mg BID HUGO Administration Gabapentin 300 mg 03/21/20 22:00 03/27/20 06:41 Neurontin - PO 300 mg TID HUGO Administration Insulin Aspart 1 vial 03/21/20 16:30 03/27/20 06:41 Novolog Vial Sliding Scale - SQ 8 units ACHS HUGO Administration Protocol Insulin Detemir 16 units 03/21/20 22:00 03/27/20 09:35 Levemir Vial SQ 16 units BID HUGO Administration Magnesium Oxide 400 mg 03/21/20 22:00 03/27/20 09:34 Mag-Ox - PO 400 mg BID HUOG Administration Multivitamins/Minerals/Vitamin C 1 tab 03/22/20 10:00 03/27/20 09:35 Tab-A-Vit - PO 1 tab DAILY HUGO Administration Nystatin 1 applic 03/21/20 22:00 03/27/20 09:35 Mycostatin Cream - TP 1 applic BID HUGO Administration Polyethylene Glycol 17 gm 03/22/20 10:00 03/27/20 09:35 Miralax (For Daily Use) - PO 17 gm DAILY HUGO Administration Quetiapine Fumarate 50 mg 03/21/20 22:00 03/26/20 22:12 Seroquel - PO 50 mg HS HUGO Administration Senna 1 tab 03/21/20 22:00 03/27/20 09:34 Senna - PO 1 tab BID HUGO Administration Tamsulosin HCl 0.4 mg 03/22/20 08:30 03/27/20 08:46 Flomax - PO 0.4 mg DAILY@0830 HUGO Administration Valsartan 320 mg 03/22/20 10:00 03/27/20 09:35 Diovan - PO 320 mg DAILY HUGO Administration Zinc Sulfate 220 mg 03/22/20 10:00 03/27/20 09:33 Orazinc - PO 220 mg DAILY HUGO Administration Vital Signs Period Temp Pulse Resp BP Sys/Leahy Pulse Ox Last 24 Hr 98.2 F-99.3 F 87-92 16-16 106-154/54-85 97-99 Constitutional: Yes: Well Nourished, No Distress Eyes: No: Sclera Icterus HENT: No: Nasal Congestion Respiratory: Yes: CTA Bilaterally. No: Accessory Muscle Use, Rales, Wheezes Gastrointestinal: Yes: Normal Bowel Sounds. No: Distention, Hepatomegaly, Palpable Mass, Tenderness Cardiovascular: Yes: Regular Rate and Rhythm JVD: No Heart Sounds: Yes: S1, S2. No: Gallop Murmur: No: Systolic Murmur, Diastolic Murmur Edema: No Integumentary: No: Jaundice Neurological: awake, appropriate Psychiatric: No: Agitated CBC, BMP 03/27/20 07:15 03/27/20 07:15 Assessment/Plan echo 01/2020: normal LVEF, nl RV, nl valve function. CXR: ATX vs infiltrate R base, no effusions/congestion mibi 01/2020 mod sized area of inferolateral scar, no ischemia, EF 45% postop bleeding, PAD - s/p R fem-pop, BKA - 03/11 transferred to ICU and taken urgently to OR for bleeding - stable H/H after OR, received IVF, PRBCs with stable BP - manage per vascular -now s/p TURP, following CAD: - no angina sx's here - preop mibi shows inferolateral scar, no ischemia. mildly reduced EF. - continue statin, aspirin - on digoxin for unclear indication, levels ok here, continue--outpt f/u with prior treating physician DM: -per hospitalist HTN: - cont current meds HPL: -cont statin
--- NOTE | 2020-03-27 13:03 | DS ---
Physical Exam: SUBJECTIVE: Patient seen and examined at the bedside. in no acute distress. mentation back to baseline. OBJECTIVE: Patient is a 64 year old male with a significant past medical history of DM, schizophrenia, HTN, HLD, GERD, dementia, EtOH use disorder who had his right knee great toe amputated apx 1 month prior to admission, presents to the ED on 02/03/2020 with right 2nd digit gangrene. At [facility] pt underwent RLE angiogram which revealed right SFA occlusion. He is being followed by vascular surgery and is s/p fem-pop bypass. Right groin found to have purulent drainage and found to be infected, wound vac placed. Patient is s/p right below knee amputation on 03/08/2020. Hospitalization complicated on 03/11/2020 patient was a rapid response and code H (hemorrhage) when he was found to be profusely bleeding from wound vac site. He was sent to the ICU for closer monitoring. He stabilized and downgraded to med surg where he has been stable. On 03/21/2020 patient underwent a TURP procedure and completed CBI. liang cath removed and patient voiding without difficulty. Patient to be discharged today to [facility]. He will continue wound vac at facility. ------ covid status: negative as per serology 02/02, 02/10/2020, 03/07/2020, and 03/25/2020 Vital Signs Period Temp Pulse Resp BP Sys/Leahy Pulse Ox Last 24 Hr 98.2 F-99.3 F 87-92 16-16 106-154/54-85 97-99 PHYSICAL EXAM GENERAL: The patient is awake, alert, in no acute distress. forgetful HEAD: Normal with no signs of trauma. EYES: PERRL, extraocular movements intact, sclera anicteric, conjunctiva clear. No ptosis. ENT: Ears normal, nares patent, oropharynx clear without exudates NECK: Trachea midline, full range of motion, supple. LUNGS: Breath sounds equal HEART: Regular rate and rhythm ABDOMEN: Soft, nontender, nondistended, normoactive bowel sounds. right groin wound attached to wound vac. EXTREMITIES: s/p right below knee amputation with immobilizer NEUROLOGICAL: Normal speech PSYCH: Normal mood, normal affect LABS Laboratory Results - last 24 hr 03/26/20 03/26/20 03/27/20 16:50 22:08 06:39 WBC RBC Hgb Hct MCV MCH MCHC RDW Plt Count MPV Absolute Neuts (auto) Neutrophils % Lymphocytes % Monocytes % Eosinophils % Basophils % Nucleated RBC % Sodium Potassium Chloride Carbon Dioxide Anion Gap BUN Creatinine Est GFR (CKD-EPI)AfAm Est GFR (CKD-EPI)NonAf POC Glucometer 211 252 173 Random Glucose Calcium Magnesium Total Bilirubin AST ALT Alkaline Phosphatase Total Protein Albumin 03/27/20 03/27/20 03/27/20 07:15 07:15 11:28 WBC 7.4 RBC 3.07 L Hgb 8.7 L Hct 26.1 L MCV 85.0 MCH 28.3 MCHC 33.3 RDW 14.8 Plt Count 353 MPV 7.7 Absolute Neuts (auto) 5.6 Neutrophils % 75.3 Lymphocytes % 14.5 Monocytes % 6.3 Eosinophils % 3.6 Basophils % 0.3 Nucleated RBC % 0 Sodium 141 Potassium 3.9 Chloride 108 H Carbon Dioxide 27 Anion Gap 6 L BUN 22.5 H Creatinine 1.2 Est GFR (CKD-EPI)AfAm 74.66 Est GFR (CKD-EPI)NonAf 64.42 POC Glucometer 231 Random Glucose 169 H Calcium 8.9 Magnesium 2.1 Total Bilirubin 0.2 AST 12 L ALT 11 L Alkaline Phosphatase 79 Total Protein 6.7 Albumin 1.9 L HOSPITAL COURSE: Date of Admission:02/03/20 Date of Discharge: 03/27/20 Minutes to complete discharge: 45 Discharge Summary Problems reviewed: Yes Reason For Visit: NECROTIZING CELLULITIS GANGRENE Current Active Problems Anemia (Acute) Anemia (Acute) Anemia aplastic aregenerative (Acute) CKD (chronic kidney disease) (Acute) CKD stage 3 due to type 2 diabetes mellitus (Acute) Congestive heart failure (Acute) DVT (deep venous thrombosis) (Acute) DVT prophylaxis (Acute) Dementia (Acute) Diabetic foot infection (Acute) Fever (Acute) Fever (Acute) Foot osteomyelitis, right (Acute) GERD (gastroesophageal reflux disease) (Acute) HLD (hyperlipidemia) (Acute) Hypertension (Acute) Infected surgical wound (Acute) Necrotizing cellulitis (Acute) PAD (peripheral artery disease) (Acute) PIC line (peripherally inserted central catheter) removal (Acute) PVD (peripheral vascular disease) (Acute) Paroxysmal atrial fibrillation (Acute) Prophylactic measure (Acute) Right great toe amputee (Acute) S/P TURP (Acute) Schizophrenia (Acute) Status post below knee amputation of right lower extremity (Acute) Uncontrolled type 2 diabetes mellitus (Acute) Condition: Improved - Instructions Diet, Activity, Other Instructions: discharge to rehab Resume wound care/Wound Vac at facility. Referrals: Alfred Dos Santos [Primary Care Provider] - Vu Dueñas MD [Staff Physician] - Thien Pineda MD [Non Staff, Medical] - Disposition: [facility] - Home Medications Comprehensive Discharge Medication List: Ambulatory Orders Digoxin [Lanoxin -] 1 tab PO DAILY 01/22/20 Famotidine 20 mg PO BID 01/22/20 Gabapentin 300 mg PO TID 01/22/20 Quetiapine Fumarate [Seroquel -] 50 mg PO HS 01/22/20 Sitagliptin Phosphate [Januvia -] 100 mg PO DAILY 01/22/20 Multivitamin 1 each PO DAILY 02/03/20 Amino Acids/Protein Hydrolys [Prosource No Carb Liquid Pkt] 30 ml PO DAILY packet 03/27/20 Carvedilol [Coreg -] 12.5 mg PO BID tablet 03/27/20 Docusate Sodium [Colace -] 100 mg PO BID capsule 03/27/20 Insulin (Levemir) [Levemir Vial] 16 units SQ BID units 03/27/20 Insulin Sliding Scale [Novolog Vial Sliding Scale -] 1 vial SQ ACHS units 03/27/20 Magnesium Oxide [Mag-Ox -] 400 mg PO BID tablet 03/27/20 Polyethylene Glycol 3350 [Miralax 119 gm Btl -] 17 gm PO DAILY bottle 03/27/20 Polyvinyl Alcohol [Artificial Tears] 1 drop OU Q6H PRN drops 03/27/20 Sennosides [Senna -] 1 tab PO BID tablet 03/27/20 Tamsulosin HCl [Flomax -] 0.4 mg PO DAILY@0830 cap.er.24h 03/27/20 Valsartan [Diovan] 320 mg PO DAILY tablet 03/27/20 Zinc Sulfate [Orazinc -] 220 mg PO DAILY capsule 03/27/20 Problem List - Problems (1) S/P TURP Assessment/Plan: patient is s/p TURP procedure with Dr. Sandoval. [address] way liang removed and patient is voiding spontaneously. Code(s): Z90.79 - ACQUIRED ABSENCE OF OTHER GENITAL ORGAN(S) (2) Fever Assessment/Plan: resolved Code(s): R50.9 - FEVER, UNSPECIFIED (3) Diabetic foot infection Assessment/Plan: patient is s/p below right knee amputation. antibiotics completed Code(s): E11.628 - TYPE 2 DIABETES MELLITUS WITH OTHER SKIN COMPLICATIONS; L08.9 - LOCAL INFECTION OF THE SKIN AND SUBCUTANEOUS TISSUE, UNSP (4) Anemia Assessment/Plan: Anemia of chronic disease no signs of bleeding s/p 1 unit of prbc on 02/24 monitor CBC daily Code(s): D64.9 - ANEMIA, UNSPECIFIED (5) CKD (chronic kidney disease) Assessment/Plan: monitor kidney function trend intake/output and electrolytes Code(s): N18.9 - CHRONIC KIDNEY DISEASE, UNSPECIFIED (6) Congestive heart failure Assessment/Plan: Patient has normal ejection fraction, continue coreg, and digoxin, Stress test completed on 02/09/2020 no signs of volume overload Code(s): I50.9 - HEART FAILURE, UNSPECIFIED Qualifiers: Heart failure type: unspecified (7) Hypertension Assessment/Plan: controlled on coreq 12.5mg bid, digoxin 0.125mg daily Code(s): I10 - ESSENTIAL (PRIMARY) HYPERTENSION (8) Uncontrolled type 2 diabetes mellitus Assessment/Plan: BGMs improved, goal is to maintain fasting bgms<180 on levemir Code(s): E11.65 - TYPE 2 DIABETES MELLITUS WITH HYPERGLYCEMIA (9) DVT prophylaxis Assessment/Plan: SCDs. heparin d/c after patient had right groin hemorrhage Code(s): Z29.9 - ENCOUNTER FOR PROPHYLACTIC MEASURES, UNSPECIFIED This patient is new to me today: Yes Date on this admission: 03/27/20 Emergency Visit: No Critical Care patient: No - Discharge Referral Referred to [facility] Med [facility] No
[2020-03-27 15:36] VITALS: BP 140/75; PULSE 88; TEMP 98.2
--- NOTE | 2020-03-31 16:14 | OP ---
DATE OF OPERATION: 03/08/2020 PREOPERATIVE DIAGNOSIS: Right foot gangrene. POSTOPERATIVE DIAGNOSIS: Right foot gangrene. PROCEDURE: Right below-knee amputation. SURGEON: Thien Osman DO ANESTHESIA: General. BLOOD LOSS: 100 mL INDICATION: Patient is a 64-year-old male that has right foot gangrene. He had a right femoropopliteal performed which got infected and now the graft had to be removed and, in order to give him adequate healing, he needs a right below-knee amputation. Patient's brother consented for the procedure understanding all risks, benefits and alternatives, and he was then taken to the operating room. DESCRIPTION OF PROCEDURE: Once in the operating room, he was laid on the operating table in the supine manner and the area of the right lower extremity was prepped and draped in a sterile surgical manner. We then sunni a step-off incision 4 fingerbreadths below the right tibial tuberosity. We then went ahead and took a No. 15 blade and cut along our line that was drawn out. Bovie electrocautery was used to control hemostasis and we were able to go through all the subcutaneous tissue using Bovie electrocautery getting down to the muscle. Medially we were able to get through all the muscle and then dissect out the anterior tibial artery and vein that was dissected anteriorly and posteriorly and clamped and suture ligated using 0 silk suture ligature. We then went ahead and went laterally and took down the muscle using Bovie electrocautery and dissected out our posterior tibial artery and vein. Those were dissected anterior and posteriorly. They were clamped proximally and distally and then ligated using 0 silk suture ligature. We then went ahead and went posteriorly and we took down our muscles posteriorly using Bovie electrocautery and we then went ahead and dissected out our tibia and fibula. We then took the soleus off the tibia and we were able to dissect out our peroneal artery and vein. Those were clamped, ligated with 0 silk suture ligature. We then went ahead and dissected out our fibula and we got 2 cm above the tibia. At this point we went ahead and took our oscillating saw and transected our tibia first. Then we transected the fibula 2 cm above the tibia and the rest of the leg was sent off to Pathology. We then irrigated the wounds copiously. We then used Bovie electrocautery to control hemostasis. We then went ahead and used 2-0 Vicryl and the fascia was approximated in interrupted manner. The skin was then closed with skin agnes. Area was wet and dried. Xeroform, 4 x 4's, ABD pads, Kerlix and Coban were placed. Patient's leg was then placed in a knee immobilizer. Patient tolerated the procedure with no complications. Patient transferred to PACU in stable condition. Total blood loss 100 mL. THIEN OSMAN DO [id number]
== END 2020-03-27 15:46 | DRG 181 ==
LOC: JER 12:10 → JERBED 16:33 → J5S 18:25 → JICU 02-18 16:21 → J5S 02-19 17:26 → JICU 03-11 23:07 → J5S 03-14 11:22
PROVIDERS: ADMIT Internal Medicine; ATTEND Nurse Practitioner Family
PROC: B40FYZZ Plain Radiography of Right Lower Extremity Arteries using Other Contrast (ICD-10-PCS; 2020-02-05)
PROC: B40DYZZ Plain Radiography of Aorta and Bilateral Lower Extremity Arteries using Other Contrast (ICD-10-PCS; 2020-02-05)
PROC: 0JBQ0ZZ Excision of Right Foot Subcutaneous Tissue and Fascia, Open Approach (ICD-10-PCS; principal; 2020-02-05 15:00)
PROC: 041K4JL Bypass Right Femoral Artery to Popliteal Artery with Synthetic Substitute, Percutaneous Endoscopic Approach (ICD-10-PCS; 2020-02-18)
PROC: B40FYZZ Plain Radiography of Right Lower Extremity Arteries using Other Contrast (ICD-10-PCS; 2020-02-18)
PROC: 0J9L0ZX Drainage of Right Upper Leg Subcutaneous Tissue and Fascia, Open Approach, Diagnostic (ICD-10-PCS; 2020-02-26)
PROC: 2W16X6Z Compression of Right Inguinal Region using Pressure Dressing (ICD-10-PCS; 2020-03-01)
PROC: 2W16X6Z Compression of Right Inguinal Region using Pressure Dressing (ICD-10-PCS; 2020-03-03)
PROC: 04PY0JZ Removal of Synthetic Substitute from Lower Artery, Open Approach (ICD-10-PCS; 2020-03-03)
PROC: 0Y6H0Z1 Detachment at Right Lower Leg, High, Open Approach (ICD-10-PCS; 2020-03-08)
PROC: 2W16X6Z Compression of Right Inguinal Region using Pressure Dressing (ICD-10-PCS; 2020-03-10)
PROC: 04QK0ZZ Repair Right Femoral Artery, Open Approach (ICD-10-PCS; 2020-03-12)
PROC: 04CK0ZZ Extirpation of Matter from Right Femoral Artery, Open Approach (ICD-10-PCS; 2020-03-12)
PROC: 04PY0JZ Removal of Synthetic Substitute from Lower Artery, Open Approach (ICD-10-PCS; 2020-03-12)
PROC: 2W16X6Z Compression of Right Inguinal Region using Pressure Dressing (ICD-10-PCS; 2020-03-16)
PROC: 0VB08ZZ Excision of Prostate, Via Natural or Artificial Opening Endoscopic (ICD-10-PCS; 2020-03-21)
DX: E11.52 Type 2 diabetes mellitus with diabetic peripheral angiopathy with gangrene (principal); K21.9 Gastro-esophageal reflux disease without esophagitis; E11.65 Type 2 diabetes mellitus with hyperglycemia; E78.5 Hyperlipidemia, unspecified; F20.9 Schizophrenia, unspecified; Z89.421 Acquired absence of other right toe(s); I13.0 Hypertensive heart and chronic kidney disease with heart failure and stage 1 through stage 4 chronic kidney disease, or unspecified chronic kidney disease; E11.22 Type 2 diabetes mellitus with diabetic chronic kidney disease; N18.30 Chronic kidney disease, stage 3 unspecified; I50.30 Unspecified diastolic (congestive) heart failure; F03.90 Unspecified dementia, unspecified severity, without behavioral disturbance, psychotic disturbance, mood disturbance, and anxiety; I48.0 Paroxysmal atrial fibrillation; L03.115 Cellulitis of right lower limb; N17.9 Acute kidney failure, unspecified; E86.0 Dehydration; D64.9 Anemia, unspecified; I96 Gangrene, not elsewhere classified; I25.10 Atherosclerotic heart disease of native coronary artery without angina pectoris; R50.9 Fever, unspecified; E11.628 Type 2 diabetes mellitus with other skin complications; L08.9 Local infection of the skin and subcutaneous tissue, unspecified; E43 Unspecified severe protein-calorie malnutrition; Z68.20 Body mass index [BMI] 20.0-20.9, adult; E11.621 Type 2 diabetes mellitus with foot ulcer; L97.518 Non-pressure chronic ulcer of other part of right foot with other specified severity; I77.1 Stricture of artery; L02.214 Cutaneous abscess of groin; I42.9 Cardiomyopathy, unspecified; B96.1 Klebsiella pneumoniae [K. pneumoniae] as the cause of diseases classified elsewhere; B96.4 Proteus (mirabilis) (morganii) as the cause of diseases classified elsewhere; B95.2 Enterococcus as the cause of diseases classified elsewhere; T81.42XA Infection following a procedure, deep incisional surgical site, initial encounter; Y83.8 Other surgical procedures as the cause of abnormal reaction of the patient, or of later complication, without mention of misadventure at the time of the procedure; T82.7XXA Infection and inflammatory reaction due to other cardiac and vascular devices, implants and grafts, initial encounter; I97.618 Postprocedural hemorrhage of a circulatory system organ or structure following other circulatory system procedure; T81.19XA Other postprocedural shock, initial encounter; R58 Hemorrhage, not elsewhere classified; N40.1 Benign prostatic hyperplasia with lower urinary tract symptoms; R33.8 Other retention of urine; Z16.11 Resistance to penicillins; Z16.22 Resistance to vancomycin related antibiotics; Z16.19 Resistance to other specified beta lactam antibiotics
CPT/HCPCS: 36415; 36430; 71045-TC-FY; 72192-TC; 73630-TC-RT-FY; 73701-TC-RT; 76000-TC-FY; 76775-TC; 76882-TC-RT-FY; 78452-TC; 80048; 80053; 80162; 81003; 82272; 82550; 82553; 82607; 82728; 82746; 82962; 83036; 83540; 83550; 83605; 83735; 84100; 84466; 84484; 85025; 85027; 85045; 85384; 85610; 85651; 85730; 86140; 86850; 86900; 86901; 86922; 87040; 87070; 87077; 87086; 87186; 87205; 88108; 88300-TC; 88304-TC; 88305-TC; 88307-TC; 88311-TC; 93005; 93010; 93017; 93306-TC; 93925-TC; 93970-TC; 94010; 94760; 97116-GP; 97162-GP; 99285-25; A9502; G0480; J0131; J0878; J1644; J2785; P9058; Q9967; U0003